=== PATIENT | female | born 1930 | race Caucasian/White ===

== ENCOUNTER → 2016-11-16 | Outpatient (CLI) | payer OTHER ==
[~2016-11-16] MED LIST: ACET-1311 PO; ACET325T96 PO; ASPI81TA28 PO; ATEN-173 PO; ATOR-22 PO; CALC500C70 PO; CHOL1000 PO; CLOP1TAB15 PO; CMD3 PO; DICL1GEL12 TOP; DOXY100C2 PO; FERR-24 PO; LEVO100T7 PO; LEVO1TAB35 PO; LISI-461 PO; LSN/2025 PO; LVNIS80 SQ; MULT-116 PO; MULT-506 PO; MULTTAB58 PO; OMEG10007 PO; RSTOPS OP; SULF800T23 PO; TRAM-10 PO; VANC5CAP PO; VITAMIN B12 INJECT IM; WARF2TAB8 PO
[2016-11-16 08:33] LABS: BLOOD UREA NITROGEN 14 mg/dl (7-18); BUN/CREATININE RATIO 14.9 (10-20); CALCIUM 8.3 mg/dl (8.5-10.1); CARBON DIOXIDE 20 mmol/L (21-32); CHLORIDE 91 mmol/L (98-107); CREATININE 0.94 mg/dl (0.60-1.20); GLUCOSE 85 mg/dl (70-99); POTASSIUM 3.3 mmol/L (3.5-5.1); SODIUM 123 mmol/L (136-145)
== END ==
LOC: C.LABCC 07:53 → EDSTATUS 11-18 12:20
PROVIDERS: ATTEND Internal Medicine
DX: I73.9 Peripheral vascular disease, unspecified (principal)

== ENCOUNTER → 2016-11-19 | Outpatient (CLI) | payer OTHER ==
[~2016-11-19] MED LIST changes: +CLR10 PO; +CYNI1000 IM; +LCTX PO; +METR-163 PO; +POVI10SO38 TOP
[2016-11-19 09:36] LABS: BLOOD UREA NITROGEN 27 mg/dl (7-18); BUN/CREATININE RATIO 19.3 (10-20); CALCIUM 8.6 mg/dl (8.5-10.1); CARBON DIOXIDE 23 mmol/L (21-32); CHLORIDE 96 mmol/L (98-107); GLUCOSE 101 mg/dl (70-99); POTASSIUM 3.8 mmol/L (3.5-5.1); SODIUM 129 mmol/L (136-145)
== END ==
LOC: C.LABCC 09:05
PROVIDERS: ATTEND Internal Medicine
DX: E87.1 Hypo-osmolality and hyponatremia (principal)

== ENCOUNTER 2016-12-03 20:04 | Inpatient (IN) | payer OTHER ==
[~2016-12-03] VITALS: Ht 160 cm; Wt 56.8 kg
[~2016-12-03 20:04] MED LIST changes: -ACET-1311 PO; -ASPI81TA28 PO; -ATOR-22 PO; -CLR10 PO; -CMD3 PO; -CYNI1000 IM; -DOXY100C2 PO; -LCTX PO; -LEVO1TAB35 PO; -LVNIS80 SQ; -METR-163 PO; -MULT-116 PO; -POVI10SO38 TOP; -SULF800T23 PO; -VITAMIN B12 INJECT IM; -WARF2TAB8 PO
[2016-12-03 22:32] LABS: BASO % 0.6 %; BASO ABS # 0.04 K/uL (0-0.2); COMPLETE YES; EOS % 2.5 %; IG% 0.3 %; LYMPH ABS # 1.28 K/uL (1.2-3.4); MEAN CELL VOLUME 89.6 fL (80-100); MEAN CORPUSCULAR HEMOGLOBIN 30.1 pg (25-34); MEAN CORPUSCULAR HGB CONC 33.5 g/dl (32-36); MEAN PLATELET VOLUME 9.4 fL (7.4-10.4); MONO % 11.1 %; NEUT % 67.5 %; PLATELET COUNT 268 K/uL (130-400); RED BLOOD COUNT 3.46 M/uL (4.2-5.4); WHITE BLOOD COUNT 7.11 K/uL (4.8-10.8)
[2016-12-03 22:45] LABS: INR 1.1 (0.9-1.1); PROTHROMBIN TIME (PATIENT) 11.3 SECONDS (9.0-12.0)
[2016-12-03 22:56] LABS: BUN/CREATININE RATIO 20.4 (10-20); CALCIUM 9.1 mg/dl (8.5-10.1); CREATININE 0.87 mg/dl (0.60-1.20); POTASSIUM 4.2 mmol/L (3.5-5.1)
[2016-12-03] MEDS ORDERED: VANC5CAP PO (23:14)
[2016-12-04] MEDS ORDERED: HEPARIN SOD 5000 UNIT/0.5 ML CARP ONE (01:48)
[2016-12-04] MEDS ORDERED: HEPARIN 25000 UNIT/500 ML D5W ONE (01:48)
[2016-12-04] MEDS ORDERED: MAGNESIUM HYDROXIDE SUSP 30 ML UDC PO PRN (02:15)
[2016-12-04] MEDS ORDERED: POLYETHYLENE (MIRALAX) 17 GM PACK PO PRN (02:15)
[2016-12-04] MEDS ORDERED: ACETAMINOPHEN 325 MG TAB PO PRN (02:15)
[2016-12-04] MEDS ORDERED: ONDANSETRON INJ 2 MG/ML 2 ML VIAL IV PRN (02:15)
[2016-12-04] MEDS ORDERED: ALUMINUM/MAGNESIUM/SIMETH (MAALOX MAX) 30 ML UDC PO PRN (02:15)
--- NOTE | 2016-12-04 02:40 | EMERGENCY ROOM VISIT NOTE ---
History Report prepared by Samuel: Oniel Pederson Under the Supervision of: Dr. Srinivasan Abbasi M.D. First contact with patient: 20:57 Chief Complaint: SWELLING TO EXTREMITY Stated Complaint: RT ARM DVT History of Present Illness The patient is a 86 year old female who presents to the Emergency Room with complaints of improving swelling in the left arm starting prior to arrival. The patient currently rates her discomfort as a 2/10 in severity. The patient's daughters state that the patient had an ultrasound at [facility], and it showed a DVT in her upper extremity. They state that she has swelling her her hand, however it has gone down so far. The daughters state that the patient is arthritic, and she is currently on Plavix. They additionally states hatshe got a pacemaker in last month. The patient states that she has been having diarrhea. Pt denies LOC, headache, fevers, chills, diaphoresis, visual changes, neck pain, chest pain, breathing difficulties, nausea, vomiting, abdominal pain , back pain, melena, hematochezia, urinary symptoms, numbness, weakness, lymphadenopathy, rash, or other complaints. Source of History: patient, family Onset: prior to arrival Position: arm (left) Symptom Intensity: excruciating (2/10) Quality: other (swelling) Timing: other (improving) Associated Symptoms: + diarrhea Review of Systems See HPI for pertinent positives and negatives. A total of ten systems were reviewed and were otherwise negative. Past Medical & Surgical Medical Problems: (1) CKD (chronic kidney disease), stage III (2) DVT (deep venous thrombosis) (3) HTN (hypertension) (4) Hyperlipidemia (5) Hypothyroidism (6) Osteoporosis (7) Parkinson's disease (8) Tachy-natali syndrome (9) TIA (transient ischemic attack) Surgical Problems: (1) H/O colonoscopy (2) S/P laparotomy (3) S/P tonsillectomy and adenoidectomy Family History Cancer Heart disease Social History Smoking Status: Never Smoker Alcohol Use: none Marital Status: Occupation Status: retired Current/Historical Medications Scheduled Atenolol (Tenormin), 75 MG PO BID Calcium/Vitamin D (Os-Niall 500 Plus D), 1 TAB PO BID Cholecalciferol (Vitamin D3), 1 TAB PO DAILY Clopidogrel (Plavix), 75 MG PO DAILY Cyclosporine (Restasis Eye Drops), 1 DROP OP BID Ferrous Sulfate (Fe Tabs), 325 MG PO DAILY Fish Oil ([place]-3), 1 CAP PO BID Hctz/Lisinopril (Zestoretic 20MG/25MG), 1 TAB PO DAILY Levothyroxine Sodium (Levothyroxine Sodium), 125 MCG PO DAILY Multiple Vitamin (Multivitamin), 1 TAB PO DAILY Vancomycin Hcl (Vancomycin), 125 MG PO QID Scheduled PRN Acetaminophen Tab (Tylenol), 650 MG PO Q6 PRN for Pain Diclofenac Sodium (Topical) (Voltaren 1% Top Gel), 2 GM TOP QID PRN for Pain Allergies Coded Allergies: Amoxicillin (Verified Allergy, Mild, RASH, 12/03/16) Physical Exam Vital Signs Date Time Temp Pulse Resp B/P Pulse Ox O2 Delivery O2 Flow Rate FiO2 12/04/16 00:16 87 12/04/16 00:00 76 18 151/76 96 Room Air 12/03/16 22:44 89 20 160/71 95 Room Air 12/03/16 21:30 84 20 161/66 95 12/03/16 21:04 Room Air 12/03/16 20:13 83 12/03/16 20:08 37.0 77 17 156/75 94 Room Air Physical Exam GENERAL: Awake, alert, well-appearing, in no distress HENT: Normocephalic, atraumatic. Oropharynx unremarkable. EYES: Normal conjunctiva. Sclera non-icteric. NECK: Supple. No nuchal rigidity. FROM. No JVD. RESPIRATORY: Clear to auscultation. CARDIAC: Regular rate, normal rhythm. Extremities warm and well perfused. Pulses equal. ABDOMEN: Soft, non-distended. No tenderness to palpation. No rebound or guarding. No masses. RECTAL: Deferred. MUSCULOSKELETAL: Chest examination reveals no tenderness. The back is symmetrical on inspection without obvious abnormality. There is no CVA tenderness to palpation. No joint edema. LOWER EXTREMITIES: Ulcerations noted on feet without signs of infection. Calves are equal size bilaterally and non-tender. No edema. No discoloration. NEURO: Normal sensorium. No sensory or motor deficits noted. SKIN: No rash or jaundice noted. Medical Decision & Procedures ER Provider Diagnostic Interpretation: US results as stated below per my review and radiologist interpretation: US VENOUS LEFT UPPER EXTREMITY: Near occlusive DVT Laboratory Results 12/03/16 22:17 Red Blood Count 3.46, Mean Corpuscular Volume 89.6, Mean Corpuscular Hemoglobin 30.1, Mean Corpuscular Hemoglobin Concent 33.5, Mean Platelet Volume 9.4, Neutrophils (%) (Auto) 67.5, Lymphocytes (%) (Auto) 18.0, Monocytes (%) (Auto) 11.1, Eosinophils (%) (Auto) 2.5, Basophils (%) (Auto) 0.6, Neutrophils # (Auto ) 4.80, Lymphocytes # (Auto) 1.28, Monocytes # (Auto) 0.79, Eosinophils # (Auto ) 0.18, Basophils # (Auto) 0.04 12/03/16 22:17 Test 12/03/16 22:17 White Blood Count 7.11 K/uL (4.8-10.8) Red Blood Count 3.46 M/uL (4.2-5.4) Hemoglobin 10.4 g/dL (12.0-16.0) Hematocrit 31.0 % (37-47) Mean Corpuscular Volume 89.6 fL (80-100) Mean Corpuscular Hemoglobin 30.1 pg (25-34) Mean Corpuscular Hemoglobin Concent 33.5 g/dl (32-36) Platelet Count 268 K/uL (130-400) Mean Platelet Volume 9.4 fL (7.4-10.4) Neutrophils (%) (Auto) 67.5 % Lymphocytes (%) (Auto) 18.0 % Monocytes (%) (Auto) 11.1 % Eosinophils (%) (Auto) 2.5 % Basophils (%) (Auto) 0.6 % Neutrophils # (Auto) 4.80 K/uL (1.4-6.5) Lymphocytes # (Auto) 1.28 K/uL (1.2-3.4) Monocytes # (Auto) 0.79 K/uL (0.11-0.59) Eosinophils # (Auto) 0.18 K/uL (0-0.5) Basophils # (Auto) 0.04 K/uL (0-0.2) RDW Standard Deviation 49.2 fL (36.4-46.3) RDW Coefficient of Variation 15.0 % (11.5-14.5) Immature Granulocyte % (Auto) 0.3 % Immature Granulocyte # (Auto) 0.02 K/uL (0.00-0.02) Prothrombin Time 11.3 SECONDS (9.0-12.0) Prothromb Time International Ratio 1.1 (0.9-1.1) Activated Partial Thromboplast Time 26.1 SECONDS (21.0-31.0) Partial Thromboplastin Ratio 1.0 Anion Gap 9.0 mmol/L (3-11) Est Creatinine Clear Calc Drug Dose 38.4 ml/min Estimated GFR () 69.9 Estimated GFR (Non- 60.3 BUN/Creatinine Ratio 20.4 (10-20) Calcium Level 9.1 mg/dl (8.5-10.1) Total Bilirubin 0.2 mg/dl (0.2-1) Aspartate Amino Transf (AST/SGOT) 35 U/L (15-37) Alanine Aminotransferase (ALT/SGPT) 56 U/L (12-78) Alkaline Phosphatase 91 U/L (45-117) Total Protein 6.7 gm/dl (6.4-8.2) Albumin 3.3 gm/dl (3.4-5.0) Globulin 3.4 gm/dl (2.5-4.0) Albumin/Globulin Ratio 1.0 (0.9-2) Laboratory results reviewed by me Medications Administered Medications (Trade) Dose Ordered Sig/Fritz Route Start Time Stop Time Status Last Admin Dose Admin Heparin Sodium/ Dextrose (Heparin 25,000 Unit/500ml D5W) 25,000 unit STK-MED ONCE .ROUTE 12/04/16 01:48 12/04/16 01:49 DC 12/04/16 01:58 25,000 UNIT Heparin Sodium (Porcine) (Heparin Sq 5000 Unit/0.5ml) 5,000 unit STK-MED ONCE .ROUTE 12/04/16 01:48 12/04/16 01:50 DC 12/04/16 01:58 3,000 UNIT ED Course 2130: The patient was evaluated in room A10. A complete history and physical exam was performed. 0119: Heparin Sodium/ Dextrose 1 ea 0120: I reevaluated the patient, and she was resting. 0130: I discussed the patient's case with Dr. Pavon. He is going to evaluate the patient for further treatment Medical Decision Triage Nursing notes reviewed. The patient's presentation and history were concerning for arm swelling. Etiologies such as DVT, joint effusion, infection, trauma, muscular, lymphedema , idiopathic, CHF, as well as others were entertained. Patient was evaluated. Physical examination as above. The patient had an unremarkable CBC except for mild anemia. Chemistry panel and LFTs were unremarkable as were coags. The patient underwent ultrasound imaging as her official report could not be obtained from the nursing facility. The patient has an extensive left upper extremity DVT which involves the pacer wires. I discussed this with the patient and family. IV heparin was ordered. Consultation was made with internal medicine. The patient was evaluated in the Emergency Room for further management. The chart was completed utilizing [employer] Speech voice recognition software. Grammatical errors, random word insertions, pronoun errors, and incomplete sentences are an occasional consequence of this system due to software limitations, ambient noise, and hardware issues. Any formal questions or concerns about the content, text, or information contained within the body of this dictation should be directly addressed to the physician for clarification. Consults Time Called: 0125 Consulting Physician: Dr. Pavon Returned Call: 0130 I discussed the patient's case with Dr. Pavon. He is going to evaluate the patient for further treatment Impression Primary Impression: Deep venous thrombosis of left upper extremity Scribe Attestation The scribe's documentation has been prepared under my direction and personally reviewed by me in its entirety. I confirm that the note above accurately reflects all work, treatment, procedures, and medical decision making performed by me. Departure Information Dispostion Being Evaluated By Hospitalist Referrals [place] (PCP) Problem Qualifiers Primary Impression: Deep venous thrombosis of left upper extremity
--- NOTE | 2016-12-04 02:49 | History and Physical ---
History & Physical Date & Time of Service: Dec 04, 2016 at 02:31 Chief Complaint: Rt Arm Dvt Primary Care Physician: Jorge Aggarwal History of Present Illness Source: family 86 y/o F Hx Parkinsons, AF and recent pacer placement. Presents with pain and swelling in her LUE. Denies CP, SOB, fevers. Ultrasound obtained in the ER reveals an extensive DVT extending into the L subclavian. She had a pacer placed due to AF with tachy/natali syndrome 10/30. 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 Past Medical/Surgical History Medical Problems: (1) CKD Status: Chronic (2) HTN (hypertension) Status: Chronic (3) Hyperlipidemia Status: Chronic (4) Hypothyroidism Status: Chronic (5) Osteoporosis Status: Chronic (6) Parkinson's disease Status: Chronic (7) TIA (transient ischemic attack) Status: Chronic Surgical Problems: (1) H/O colonoscopy Permanent Comment: 11/21- several hyperplastic polyps, 1 polyp with adenomatous changes Status: Chronic (2) S/P laparotomy Status: Chronic (3) S/P tonsillectomy and adenoidectomy Status: Chronic Family History Cancer Heart disease Social History Smoking Status: Never Smoker Marital Status: Housing status: lives alone Occupational Status: retired Immunizations History of Influenza Vaccine: Yes Influenza Vaccine Date: Aug 30, 2015 History of Tetanus Vaccine?: Yes Tetanus Immunization Date: Apr 17, 2014 History of Pneumococcal: Yes History of Hepatitis B Vaccine: Unknown Multi-Drug Resistant Organisms History of MDRO: Yes Type of MDRO: MRSA Allergies Coded Allergies: Amoxicillin (Verified Allergy, Mild, RASH, 12/03/16) Home Medications Scheduled Atenolol (Tenormin), 75 MG PO BID Calcium/Vitamin D (Os-Niall 500 Plus D), 1 TAB PO BID Cholecalciferol (Vitamin D3), 1 TAB PO DAILY Clopidogrel (Plavix), 75 MG PO DAILY Cyclosporine (Restasis Eye Drops), 1 DROP OP BID Ferrous Sulfate (Fe Tabs), 325 MG PO DAILY Fish Oil ([place]-3), 1 CAP PO BID Hctz/Lisinopril (Zestoretic 20MG/25MG), 1 TAB PO DAILY Levothyroxine Sodium (Levothyroxine Sodium), 125 MCG PO DAILY Multiple Vitamin (Multivitamin), 1 TAB PO DAILY Vancomycin Hcl (Vancomycin), 125 MG PO QID Scheduled PRN Acetaminophen Tab (Tylenol), 650 MG PO Q6 PRN for Pain Diclofenac Sodium (Topical) (Voltaren 1% Top Gel), 2 GM TOP QID PRN for Pain Review of Systems Constitutional: No chills, No fever, No sweats Eyes: No eye pain, No worsening of vision ENT: No hearing loss, No unusual epistaxis Respiratory: No cough, No sputum, No wheezing Cardiovascular: No PND, No chest pain, No orthopnea Abdomen: No nausea, No pain, No vomiting Musculoskeletal: + problem reported (Pain and swelling of LUE), No joint pain, No muscle pain Genitourinary - Female: No dysuria, No urinary frequency, No urinary urgency Neurologic: No memory loss, No paralysis Psychiatric: No depression symptoms Physical Exam Vital Signs Date Time Temp Pulse Resp B/P Pulse Ox O2 Delivery O2 Flow Rate FiO2 12/04/16 00:16 87 12/04/16 00:00 76 18 151/76 96 Room Air 12/03/16 22:44 89 20 160/71 95 Room Air 12/03/16 21:30 84 20 161/66 95 12/03/16 21:04 Room Air 12/03/16 20:13 83 12/03/16 20:08 37.0 77 17 156/75 94 Room Air General Appearance: + pertinent finding (Somnolent elderly female - responds to questioning appropritely when awake - no distress) Head: normocephalic, atraumatic Eyes: normal inspection, EOMI ENT: normal ENT inspection, pharynx normal Neck: supple, no adenopathy, thyroid normal, no JVD Respiratory/Chest: chest non-tender, lungs clear, normal breath sounds, no respiratory distress, no accessory muscle use Cardiovascular: regular rate, rhythm, no edema, no gallop Abdomen/GI: normal bowel sounds, non tender, soft Back: normal inspection, no CVA tenderness Extremities/Musculoskelatal: normal inspection, no calf tenderness, normal capillary refill, + pertinent finding (Mild swelling LUE - no overlying cellulitis) 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, no motor/sensory deficits, alert, normal mood/affect, normal reflexes Skin: normal color, warm/dry, + pertinent finding (Shallow ulcer RLE) Diagnostics Laboratory Results Results Past 24 Hours Test 12/03/16 22:17 Range/Units White Blood Count 7.11 4.8-10.8 K/uL Red Blood Count 3.46 4.2-5.4 M/uL Hemoglobin 10.4 12.0-16.0 g/dL Hematocrit 31.0 37-47 % Mean Corpuscular Volume 89.6 80-100 fL Mean Corpuscular Hemoglobin 30.1 25-34 pg Mean Corpuscular Hemoglobin Concent 33.5 32-36 g/dl Platelet Count 268 130-400 K/uL Mean Platelet Volume 9.4 7.4-10.4 fL Neutrophils (%) (Auto) 67.5 % Lymphocytes (%) (Auto) 18.0 % Monocytes (%) (Auto) 11.1 % Eosinophils (%) (Auto) 2.5 % Basophils (%) (Auto) 0.6 % Neutrophils # (Auto) 4.80 1.4-6.5 K/uL Lymphocytes # (Auto) 1.28 1.2-3.4 K/uL Monocytes # (Auto) 0.79 0.11-0.59 K/uL Eosinophils # (Auto) 0.18 0-0.5 K/uL Basophils # (Auto) 0.04 0-0.2 K/uL RDW Standard Deviation 49.2 36.4-46.3 fL RDW Coefficient of Variation 15.0 11.5-14.5 % Immature Granulocyte % (Auto) 0.3 % Immature Granulocyte # (Auto) 0.02 0.00-0.02 K/uL Prothrombin Time 11.3 9.0-12.0 SECONDS Prothromb Time International Ratio 1.1 0.9-1.1 Activated Partial Thromboplast Time 26.1 21.0-31.0 SECONDS Partial Thromboplastin Ratio 1.0 Sodium Level 141 136-145 mmol/L Potassium Level 4.2 3.5-5.1 mmol/L Chloride Level 104 98-107 mmol/L Carbon Dioxide Level 28 21-32 mmol/L Anion Gap 9.0 3-11 mmol/L Blood Urea Nitrogen 18 7-18 mg/dl Creatinine 0.87 0.60-1.20 mg/dl Est Creatinine Clear Calc Drug Dose 38.4 ml/min Estimated GFR () 69.9 Estimated GFR (Non- 60.3 BUN/Creatinine Ratio 20.4 10-20 Random Glucose 141 70-99 mg/dl Calcium Level 9.1 8.5-10.1 mg/dl Total Bilirubin 0.2 0.2-1 mg/dl Aspartate Amino Transf (AST/SGOT) 35 15-37 U/L Alanine Aminotransferase (ALT/SGPT) 56 12-78 U/L Alkaline Phosphatase 91 45-117 U/L Total Protein 6.7 6.4-8.2 gm/dl Albumin 3.3 3.4-5.0 gm/dl Globulin 3.4 2.5-4.0 gm/dl Albumin/Globulin Ratio 1.0 0.9-2 Diagnostic Radiology US L upper ext - occlusive DVT subclavian, axillary Impression Assessment and Plan 86 y/o F Hx Parkinsons, AF and recent pacer placement. Presents with pain and swelling in her LUE. Denies CP, SOB, fevers. Ultrasound obtained in the ER reveals an extensive DVT extending into the L subclavian. 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 1) DVT - started on heparin protocol - will consult cardiology to advise on management in context of pacer placement 2) AF - Cont Atenolol 3) Hx TIA - cont plavix 4) Parkinson - does not appear to be treated at present 5) Recurrent C diff - no related symptoms - cont Vanc - contact isolation DNR/DNI - Full dose Heparin Total time for this admit including review of records, labs, imaging - med rec - discussion with ER MD and pt's family - 36 min Level of Care Telemetry Resuscitation Status DO NOT RESUSCITATE VTE Prophylaxis VTE Risk Assessment Done? Y/N: Yes Risk Level: High Given or contraindicated: Other Anticoagulation
[2016-12-04] MEDS: HEPARIN 25,000 UNIT/500ML D5W 500 ML IV PRN ×2 (04:00→11:31)
[2016-12-04 04:16] VITALS: BP 139/79; PULSE 79; TEMP 36.3; O2SAT 98; Ht 160 cm; Wt 56.8 kg
[2016-12-04] MEDS: LEVOTHYROXINE 125 MCG TAB PO SCH (06:18)
--- NOTE | 2016-12-04 07:10 | DIAGNOSTIC IMAGING REPORT ---
LEFT UPPER EXTREMITY VENOUS DOPPLER HISTORY: Left hand swelling. Left upper extremity DVT suspected on palpation study. COMPARISON STUDY: None. FINDINGS: There is near occlusive DVT surrounding the port within the left subclavian vein. There is also near occlusive thrombus within the mid subclavian vein, axillary vein, and proximal basilic vein. The left radioulnar veins appear patent. The left internal jugular vein is patent. IMPRESSION: Extensive near occlusive DVT within the left upper extremity as described above. Electronically signed by: Alli Zamudio M.D. 12/04/2016 7:08 AM Dictated Date/Time: 12/04/2016 7:07 AM
[2016-12-04 07:36] VITALS: BP 175/70; PULSE 81; TEMP 36.9; O2SAT 95
[2016-12-04] MEDS: RESTASIS~ORDER AWAITING ACTION SCH (08:00)
[2016-12-04] MEDS: VANCOMYCIN HCL 125 MG/2.5ML SOLN PO SCH ×4 (08:08→20:42)
[2016-12-04] MEDS: OMEGA-3 (PURIFIED FISH OIL) 1 GM CAP PO SCH ×2 (08:09→20:42)
[2016-12-04] MEDS: RASPBERRY SYRUP 5 ML UDP PO SCH ×4 (08:09→20:42)
[2016-12-04] MEDS: LISINOPRIL/HCTZ 20/25MG TAB PO SCH (08:09)
[2016-12-04] MEDS: FERROUS SULFATE 325 MG TAB PO SCH (08:10)
[2016-12-04] MEDS: CLOPIDOGREL BISULFATE 75 MG TAB PO SCH (08:10)
[2016-12-04 10:47] LABS: PARTIAL THROMBOPLASTIN RATIO 3.3
--- NOTE | 2016-12-04 10:59 | Hospitalist Progress Note ---
Hospitalist Progress Note Date of Service Dec 04, 2016. Subjective Pt evaluation today including: conversation w/ patient, physical exam, chart review, lab review, review of studies, review of inpatient medication list Pain: None PO Intake: Tolerating PO diet Voiding: no voiding problems Patient reports feeling well with no complaints. She denies any pain, numbness or tingling in her left arm. She denies any diarrhea. The patient denies fevers, chills, sweats, chest pain, palpitations, claudication, cough, wheezing , shortness of breath, nausea, vomiting, abdominal pain, dysuria, hematuria, urinary retention, paralysis, weakness, numbness and tingling. Additional Comments: See HPI for pertinent positives and negatives. All other systems reviewed and negative. Objective Vital Signs Date Time Temp Pulse Resp B/P Pulse Ox O2 Delivery O2 Flow Rate FiO2 12/04/16 08:00 Room Air 12/04/16 07:36 36.9 81 16 175/70 95 Room Air 12/04/16 04:16 36.3 79 20 139/79 98 Room Air 12/04/16 03:00 83 16 148/79 98 12/04/16 00:16 87 12/04/16 00:00 76 18 151/76 96 Room Air 12/03/16 22:44 89 20 160/71 95 Room Air 12/03/16 21:30 84 20 161/66 95 12/03/16 21:04 Room Air 12/03/16 20:13 83 12/03/16 20:08 37.0 77 17 156/75 94 Room Air Physical Exam General Appearance: WD/WN, no apparent distress Eyes: normal inspection, PERRL (pupils slightly irregular in shape bilaterally but equal in size, reactive to light), EOMI ENT: normal ENT inspection, hearing grossly normal, pharynx normal Neck: supple, no JVD, trachea midline Respiratory/Chest: lungs clear, normal breath sounds, no respiratory distress Cardiovascular: regular rate, rhythm, no gallop, no murmur Abdomen: normal bowel sounds, non tender, soft Extremities: normal inspection, no calf tenderness, + pedal edema (2+ pitting pedal edam of RLE), + swelling (mild swelling in LUE) Neurologic/Psychiatric: alert, normal mood/affect, oriented x 3 Skin: normal color, warm/dry, no rash, + pertinent finding (wound on left heel and lateral right foot) Laboratory Results Last 24 Hours Test 12/03/16 22:17 12/04/16 10:00 White Blood Count 7.11 K/uL Red Blood Count 3.46 M/uL Hemoglobin 10.4 g/dL Hematocrit 31.0 % Mean Corpuscular Volume 89.6 fL Mean Corpuscular Hemoglobin 30.1 pg Mean Corpuscular Hemoglobin Concent 33.5 g/dl Platelet Count 268 K/uL Mean Platelet Volume 9.4 fL Neutrophils (%) (Auto) 67.5 % Lymphocytes (%) (Auto) 18.0 % Monocytes (%) (Auto) 11.1 % Eosinophils (%) (Auto) 2.5 % Basophils (%) (Auto) 0.6 % Neutrophils # (Auto) 4.80 K/uL Lymphocytes # (Auto) 1.28 K/uL Monocytes # (Auto) 0.79 K/uL Eosinophils # (Auto) 0.18 K/uL Basophils # (Auto) 0.04 K/uL RDW Standard Deviation 49.2 fL RDW Coefficient of Variation 15.0 % Immature Granulocyte % (Auto) 0.3 % Immature Granulocyte # (Auto) 0.02 K/uL Prothrombin Time 11.3 SECONDS Prothromb Time International Ratio 1.1 Activated Partial Thromboplast Time 26.1 SECONDS Partial Thromboplastin Ratio 1.0 Sodium Level 141 mmol/L Potassium Level 4.2 mmol/L Chloride Level 104 mmol/L Carbon Dioxide Level 28 mmol/L Anion Gap 9.0 mmol/L Blood Urea Nitrogen 18 mg/dl Creatinine 0.87 mg/dl Est Creatinine Clear Calc Drug Dose 38.4 ml/min Estimated GFR () 69.9 Estimated GFR (Non- 60.3 BUN/Creatinine Ratio 20.4 Random Glucose 141 mg/dl Calcium Level 9.1 mg/dl Total Bilirubin 0.2 mg/dl Aspartate Amino Transf (AST/SGOT) 35 U/L Alanine Aminotransferase (ALT/SGPT) 56 U/L Alkaline Phosphatase 91 U/L Total Protein 6.7 gm/dl Albumin 3.3 gm/dl Globulin 3.4 gm/dl Albumin/Globulin Ratio 1.0 Diagnostic Results Reviewed the following studies and agree with interpretation as follows: Patient Name: GREGORIO POPE Unit Number: [id number] Dictated: 12/04/16706 Transcribed: 12/04/16706 [facility] Printed Date/Time: [~ rep prt dt]/[~ rep prt tm] [~ rep ct labl] - [~ rep ct ivnm] [facility] [place] [address] Dictated: 12/04/16706 Transcribed: 12/04/16706 [place] Printed Date/Time: [~ rep prt dt]/[~ rep prt tm] [~ rep ct labl] - [~ rep ct ivnm] Patient: GREGORIO POPE Address1: [address] Rec: [id number] Address2: [facility] Acct ID: [id number] [facility] Zip: [place] [address] Date: 1930 Sex: F Room/Bed: S237-1 Ref Phy: [place] SC: C.2T Att Phy: Ad Pavon MD Report #: [id number] Rahel Phy: [place] Test: [id number] Admit Phy: Ad Pavno MD Companion Caregiver: DIPLJE Interpreting Phy: Alli Zamudio MD Diagnosis: DVT Ordering Phy: Srinivasan Abbasi MD Service Date: 12/03/16 Admit Date: 12/03/1700/20/17 MNE: [id number] CONF: DICTATED BY: Alli Zamudio M.D.]] CC: [facility] Ad Pavon MD Maciejczyk, John F., MD Endcc: [~ rep ct add3]] LEFT UPPER EXTREMITY VENOUS DOPPLER HISTORY: Left hand swelling. Left upper extremity DVT suspected on palpation study. COMPARISON STUDY: None. FINDINGS: There is near occlusive DVT surrounding the port within the left subclavian vein. There is also near occlusive thrombus within the mid subclavian vein, axillary vein, and proximal basilic vein. The left radioulnar veins appear patent. The left internal jugular vein is patent. IMPRESSION: Extensive near occlusive DVT within the left upper extremity as described above. Electronically signed by: Alli Zamudio M.D. 12/04/2016 7:08 AM Dictated Date/Time: 12/04/2016 7:07 AM The status of this report is Signed. Draft = Not yet reviewed or approved by Radiologist. Signed = Reviewed and approved by Radiologist. <AttendingPhy>Ad Pavon MD</AttendingPhy> <FamilyPhy>[facility]</ FamilyPhy> <PrimaryPhy>[facility]</PrimaryPhy> <UnitNumber>[id number]</ UnitNumber> <VisitNumber>[id number]</VisitNumber> <PatientName>GREGORIO POPE</PatientName> <DateOfBirth>1930</DateOfBirth> <Location>C.2T</ Location> <ServiceDate>12/03/16</ServiceDate> <MNE>ESINDI</MNE> <OrderingPhy> Srinivasan Abbasi MD</OrderingPhy> <OrderingPhyMNE>f rep ord dr hazel</ OrderingPhyMNE> <DictatingPhyMNE>f rep dict dr hazel</DictatingPhyMNE> <CCListMNE> f rep ct mne</CCListMNE> <AdmittingPhyMNE>f pt admit dr hazel</AdmittingPhyMNE> < AttendingPhyMNE>f pt attend dr hazel</AttendingPhyMNE> <ConsultingPhyMNE>f pt consult dr hazel</ConsultingPhyMNE> <FamilyPhyMNE>f pt fam dr ahzel</FamilyPhyMNE> <OtherPhyMNE>f pt other dr hazel</OtherPhyMNE> < PrimaryPhyMNE>f pt prim care dr hazel</PrimaryPhyMNE> <ReferringPhyMNE>f pt referring dr hazel</ReferringPhyMNE> Assessment and Plan 86 y/o female with a history of a-fib with recent pacemaker placement (10/30), HTN, hypothyroidism, and Parkinson's. Presents with pain and swelling in her LUE. Denies CP, SOB, fevers. Ultrasound obtained in the ER reveals an extensive DVT extending into the L subclavian. 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 LUE DVT -Admit to telemetry -Continue heparin -Cardiology consulted regarding management in context of recent pacemaker placement, appreciate recs Recurrent C diff--no related symptoms, denies diarrhea -Continue vancomycin 125 mg PO QID -Contact isolation A-fib -Continue Atenolol 75 mg PO BID H/o TIA -Continue Plavix 75 mg PO qd HTN--stable -Continue lisinopril/HCTZ 20/25 mg PO qd Hypothyroidism -Continue Synthroid 125 mcg PO qd Parkinson's--does not appear to be treated at present DVT prophylaxis -Heparin drip [facility] [place] Code Status -Level V, DO NOT RESUSCITATE
[2016-12-04 11:27] VITALS: BP 172/68; PULSE 89; TEMP 36.5; O2SAT 97
--- NOTE | 2016-12-04 15:54 | CARDIOLOGY CONSULTATION REPORT ---
DATE OF CONSULTATION: 12/04/2016 REASON FOR CONSULTATION: 1. Left upper extremity DVT. 2. Status post dual-chamber pacemaker placement in October 2016. 3. History of sick sinus syndrome. 4. History of paroxysmal atrial fibrillation. HISTORY OF PRESENT ILLNESS: Mrs. Victor is an 86-year-old white female with a history of osteoporosis, hypothyroidism, osteoarthritis, stage III chronic kidney disease, anemia, Parkinson's disease, hypertension, venous stasis ulceration of lower extremity, a recent diagnosis of sick sinus syndrome status post dual-chamber pacemaker placement in 10/22/2016, and history of paroxysmal atrial fibrillation who was admitted acutely to [facility] earlier today after having an abnormal left upper extremity venous duplex Doppler showing a near occlusive DVT surrounding the port within the left subclavian vein, there is also a near occlusive thrombus in the mid subclavian vein, axillary vein and proximal basilic vein. The left radial-ulnar veins appear patent. The left internal jugular vein is patent. The patient was admitted for IV heparin drip and to begin more shelter anticoagulation. The patient offers no complaints. She is lying in bed comfortably. Denies any significant discomfort of her left arm. She has not had any chest pain, cough, hemoptysis, pleuritic chest pain, or any syncope or near syncope. She denies any shortness of breath, orthopnea, or PND. She further denies any palpitations or tachypalpitations. MEDICATIONS: 1. Atenolol 75 mg b.i.d. 2. Plavix 75 mg daily. 3. Feosol 325 mg daily. 4. Fish oil capsules 1 g b.i.d. 5. Prinzide 20/25 one tablet daily. 6. Vancomycin oral solution 125 mg q.i.d. 7. Raspberry syrup 5 mg q.i.d. 8. Levothyroxine. 9. Heparin drip. 10. Tylenol p.r.n. 11. Maalox Max p.r.n. 12. Milk of magnesia p.r.n. 13. Zofran 4 mg IV q. 6 hours p.r.n. 14. MiraLax powder p.r.n. ALLERGIES: AMOXICILLIN. PAST MEDICAL HISTORY: 1. Parkinsons disease. 2. Osteoporosis. 3. Hypothyroidism. 4. Osteoarthritis. 5. Stage III chronic kidney disease with secondary anemia. 6. Chronic venous stasis dermatitis. 7. Venous stasis ulceration. 8. Sick sinus syndrome status post dual-chamber pacemaker 10/22/2016. 9. Currently with left upper extremity DVT. 10. History of AFib. SOCIAL HISTORY: The patient is a resident of [facility]. FAMILY HISTORY: Noncontributory. PHYSICAL EXAMINATION: VITAL SIGNS: Temperature is 36.5 degrees Celsius, pulse is 84 and regular, respiratory rate is 16 and unlabored, blood pressure is 172/68. SpO2 is 97% on room air. GENERAL: The patient is in no acute distress. HEENT: Head is atraumatic, normocephalic. EOMs intact. Sclerae are anicteric. Faces symmetric. No perioral cyanosis. Mucous membranes moist. NECK: Without thyromegaly, adenopathy or JVD. No jugular venous distention noted. CHEST AND LUNGS: Clear to auscultation throughout all lung pisano. No wheezes, rales or rhonchi. CARDIOVASCULAR: S1 and S2 are regular, with an obvious murmur, gallop or rub. PMI is not displaced. No lifts, heaves, or thrills. No abdominal aortic or renal bruits. Examination of the left subclavian fossa reveals a palpable pacemaker generator. There is no erythema, ecchymosis, or tenderness. ABDOMEN: Bowel sounds present. No masses, organomegaly or tenderness. EXTREMITIES: Without clubbing or cyanosis. There is trace edema of the left hand and forearm. Otherwise unremarkable. NEUROLOGIC: The patient is awake, alert and interactive. Answers questions appropriately. Speech is clear. Follows commands. Current tin plater reveals normal sinus rhythm with occasional PVCs. She has not had any documented atrial fibrillations since being admitted. Left upper extremity venous duplex Doppler as described above. LABORATORY DATA: White blood cell count 7.11. Hemoglobin is 10.4 g/dL, hematocrit 31.0%, platelet count is 268,000. A PTT is 85.7 seconds. Sodium is 141 mmol/L, potassium 3.2 mmol/L, BUN 18 mg/dL, creatinine 0.87 mg/dL. Estimated GFR is 60.3 mL per minute per 1.73 meters squared. ASSESSMENT: 1. Sick Sinus Syndrome s/p dual-chamber pacemaker placement via left subclavian approach on 10/22/2016. 2. Left upper extremity DVT. 3. No evidence of pulmonary embolism. 4. History of Paroxysmal Atrial Fibrillation. 5. Diagnosis as mentioned above. PLAN: 1. At this point the patient is on a heparin drip. 2. I had a discussion with the patient and her daughter regarding longer term anticoagulation in the future. Would recommend either Eliquis or Xarelto (depending on what her insurance will cover) and would recommend appropriate dosing based on renal function and GFR. Suspect she will need to be treated for 3-6 months for her current DVT. If she tolerates this medication well though (without complications) would strongly consider keno terminal operator anticoagulation to reduce the risk associated with paroxysmal atrial fibrillation. We can make that decision pending her clinical course. If she is started on one of the novel anticoagulants, she will be fully anticoagulated within 2 hours, and therefore heparin drip can be stopped and she can be discharged to [facility]. The patient and her daughter verbalized understanding of the discussion. I have contacted the patient's attending physician, Dr. Rosario, who is aware of our recommendations. Thank you for asking us to see this patient in consultation. VALDEZ
[2016-12-04 15:55] VITALS: BP 173/75; PULSE 85; TEMP 36.5; O2SAT 96
[2016-12-04] MEDS ORDERED: WARFARIN SOD 3 MG TAB PO ONE (16:00)
[2016-12-04] MEDS: ENOXAPARIN 80 MG/0.8 ML SYR SQ SCH (18:41)
[2016-12-04 19:31] VITALS: BP 133/60; PULSE 81; TEMP 36.4; O2SAT 97
[2016-12-04] MEDS ORDERED: RIVAROXABAN 20 MG TAB PO SCH (21:00)
[2016-12-05] VITALS (7 sets, daily range): BP systolic 146–166; BP diastolic 69–87; PULSE 77–88; TEMP 36.5–36.9; O2SAT 94–98
[2016-12-05] MEDS: LEVOTHYROXINE 125 MCG TAB PO SCH (06:34)
[2016-12-05 07:19] LABS: HEMATOCRIT 31.3 % (37-47); MEAN CELL VOLUME 89.7 fL (80-100); MEAN CORPUSCULAR HEMOGLOBIN 29.8 pg (25-34); MEAN CORPUSCULAR HGB CONC 33.2 g/dl (32-36); MEAN PLATELET VOLUME 9.3 fL (7.4-10.4); PLATELET COUNT 279 K/uL (130-400); RED BLOOD COUNT 3.49 M/uL (4.2-5.4)
[2016-12-05 07:22] LABS: INR 1.1 (0.9-1.1); PARTIAL THROMBOPLASTIN RATIO 1.1; PROTHROMBIN TIME (PATIENT) 11.4 SECONDS (9.0-12.0)
[2016-12-05] MEDS: RESTASIS~ORDER AWAITING ACTION SCH ×3 (07:33→16:00)
[2016-12-05 07:49] LABS: CREATININE 0.81 mg/dl (0.60-1.20); POTASSIUM 3.7 mmol/L (3.5-5.1)
[2016-12-05] MEDS: VANCOMYCIN HCL 125 MG/2.5ML SOLN PO SCH ×3 (07:55→17:36)
[2016-12-05] MEDS: RASPBERRY SYRUP 5 ML UDP PO SCH ×3 (07:55→17:36)
[2016-12-05] MEDS: LISINOPRIL/HCTZ 20/25MG TAB PO SCH (07:55)
[2016-12-05] MEDS: OMEGA-3 (PURIFIED FISH OIL) 1 GM CAP PO SCH (07:56)
[2016-12-05] MEDS: FERROUS SULFATE 325 MG TAB PO SCH (07:57)
[2016-12-05] MEDS: CLOPIDOGREL BISULFATE 75 MG TAB PO SCH (07:57)
[2016-12-05] MEDS ORDERED: LVNIS80 SQ (13:38)
[2016-12-05] MEDS ORDERED: CMD3 PO (13:38)
--- NOTE | 2016-12-05 13:38 | Discharge Instructions ---
Discharge Instructions Admission Reason for Admission: DVT Discharge Discharge Diagnosis / Problem: DVT Discharge Goals Goal(s): Decrease discomfort, Improve function, Increase independence, Improve disease control, Improve nutritional status, Learn about illness, Diagnostic testing, Therapeutic intervention, Prevent Disease Progression, Specific goals Activity Recommendations Activity Level: Up Ad Sonia Therapies: Physical Therapy, Occupational Therapy Lifting Limitations: none Exercise/Sports Limitations: none Fall precaution, resume activity as prior to the admission . Additional Information Patient informed of condition: Yes Advance Directives: Yes DNR: Yes Level of Care: Skilled Communicable Disease: Yes Prognosis: Other (guarded) Instructions / Follow-Up Instructions / Follow-Up you have DVT, your daughter preferred to Coumadin For now the blood thinner is Coumadin with Lovenox, Lovenox need to be at least 4 days more from today on, need to continue Lovenox until PT INR more than 2 Coumadin stones is 3 mg by mouth daily, this does need to be adjusted by PCP I recommend PT/INR checking on Wednesday which will be tomorrow, RN to report to your family doctor about the PT/INR results and adjust Coumadin dose - you need to follow up with your primary care physician in 1 week, - take medication as instructed, never overdose or any misuse, or take with alcohol, because misuse of medicine may cause organ damage or , call your primary care physician if have questions of medicaitons. - call your primary care physician OR go to local emergency room if has any fever/chill, chest pain, shortness of breathing, nausea/vomiting/abdominal pain , facial droop/slurry speech/local weakness, or if has any questions. - fall precaution - diet as instructed - you need to follow up with your subspecialist - you should understand that it is important to follow up the above instruction , and "not following the above instruction" may cause delayed or missed care of your medical conditions which may cause permanent organ damage and even . Current Hospital Diet Patient's current hospital diet: AHA Diet (Heart Healthy) Discharge Diet Recommended Diet: AHA Diet (Heart Healthy) Procedures Procedures Performed: No Pending Studies Studies pending at discharge: no Medical Emergencies . Who to Call and When: Medical Emergencies: If at any time you feel your situation is an emergency, please call 911 immediately. . Non-Emergent Contact Non-Emergency issues call your: Primary Care Provider . . "Provider Documentation" section prepared by Michael Rosario. Core Measure Problem Core Measures: VTE VTE Core Measures Date of VTE Diagnosis: Dec 03, 2016 Time of VTE Diagnosis: 07:07 Reason no anticoag overlap I/P: Treatment provided - N/A Reason no anticoag overlap @DC: Treatment provided - N/A
--- NOTE | 2016-12-05 13:49 | Discharge Summary ---
Discharge Summary Admission Date: Dec 04, 2016 at 02:13 Discharge Date: Dec 05, 2016 Principal Diagnosis: dvt Problems/Secondary Diagnoses: Resend a pacer placement Immunizations: Have You Had Influenza Vaccine: Yes Influenza Vaccine Date: Aug 30, 2015 History of Tetanus Vaccine?: Yes Tetanus Immunization Date: Apr 17, 2014 History of Pneumococcal: Yes History of Hepatitis B Vaccine: Unknown Procedures: No Consultations: No Medication Reconciliation New Medications: Enoxaparin (Lovenox) 80 Mg/0.8 Ml Inj 80 MG SQ DAILY@1700 for 4 Days need to complete total 5 days even if INR>2, need to continue until INR>2 Warfarin Sod (Coumadin) 3 Mg Tab 3 MG PO DAILY@1600 for 30 Days, TAB dose need to be adjusted, target INR 2-3 Continued Medications: Acetaminophen Tab (Tylenol) 325 Mg Tab 650 MG PO Q6 PRN for Pain, TAB Atenolol (Tenormin) 25 Mg Tab 75 MG PO BID, TAB Calcium/Vitamin D (Os-Niall 500 Plus D) Tab 1 TAB PO BID, TAB Cholecalciferol (Vitamin D3) 1,000 Unit Tab 1 TAB PO DAILY for 90 Days, #90 TAB 3 Refills Clopidogrel (Plavix) 75 Mg Tab 75 MG PO DAILY, TAB Cyclosporine (Restasis Eye Drops) Soln 1 DROP OP BID, BTL Diclofenac Sodium (Topical) (Voltaren 1% Top Gel) 1 % Gel 2 GM TOP QID PRN for Pain Ferrous Sulfate (Fe Tabs) 325 Mg Tab 325 MG PO DAILY, TAB Fish Oil (Kirkland-3) 1 Ea Cap 1 CAP PO BID, CAP Hctz/Lisinopril (Zestoretic 20MG/25MG) 1 Ea Tab 1 TAB PO DAILY, TAB Levothyroxine Sodium (Levothyroxine Sodium) 100 Mcg Tab 125 MCG PO DAILY for 90 Days, #108 TAB 3 Refills Multiple Vitamin (Multivitamin) 1 Tab Tab 1 TAB PO DAILY, TAB Vancomycin Hcl (Vancomycin) 125 Mg Cap 125 MG PO QID Discharge Exam Doing well, eating meal, no complaint Review of Systems: Constitutional: No chills, No fatigue, No fever, No problem reported, No sweats, No weakness, No weight loss Eyes: No diplopia, No discharge, No eye pain, No problem reported, No redness, No worsening of vision ENT: No dental problems, No hearing loss, No nasal symptoms, No problem reported, No sore throat, No tinnitus, No trouble swallowing, No unusual epistaxis Respiratory: No cough, No dyspnea at rest, No dyspnea on exertion, No hemoptysis, No problem reported, No shortness of breath, No sputum, No wheezing Cardiovascular: No PND, No chest pain, No claudication, No edema, No orthopnea, No palpitations, No problem reported Abdomen: No GI bleeding, No constipation, No diarrhea, No nausea, No pain, No problem reported, No vomiting Musculoskeletal: No calf pain, No joint pain, No muscle pain, No problem reported, No swelling Genitourinary - Female: No dysmenorrhea, No dysuria, No hematuria, No menorrhagia, No metrorrhagia, No , No problem reported, No rash, No urinary frequency, No urinary incontinence, No urinary retention, No urinary urgency, No vaginal bleeding, No vaginal discharge, No vaginal itching, No vulvodynia Neurologic: No balance problems, No memory loss, No numbness/tingling, No paralysis, No problem reported, No vertigo, No weakness Psychiatric: No anhedonism, No anxiety, No depression symptoms, No insomnia , No problem reported, No substance abuse Endocrine: No excessive thirst, No excessive urination, No fatigue, No problem reported Hematologic / Lymphatic: No abnormal bleeding/bruising, No clotting problems , No night sweats, No problem reported, No swollen lymph nodes Integumentary: No bleeding, No color change, No itch, No new/changing skin lesions, No problem reported, No rash Physical Exam: General Appearance: WD/WN, + thin, + pertinent finding (frail,) Eyes: normal inspection, PERRL ENT: normal ENT inspection, TMs normal Neck: no adenopathy, thyroid normal Respiratory/Chest: chest non-tender, lungs clear Cardiovascular: regular rate, rhythm, no edema Abdomen / GI: normal bowel sounds, soft Extremities: normal inspection, no calf tenderness, normal capillary refill Neurologic/Psychiatric: platform man II-XII nml as tested, no motor/sensory deficits , alert, normal mood/affect Skin: + pertinent finding (right lower extremity skin some abrasion, local in dressing) Hospital Course 86 y/o female with a history of a-fib with recent pacemaker placement (10/30), HTN, hypothyroidism, and Parkinson's. Patient was admitted on 12/03/2016 with pain and swelling in her LUE. Denies CP, SOB, fevers. Ultrasound obtained in the ER reveals an extensive DVT extending into the L subclavian. 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 LUE DVT Was admitted to to telemetry Was on Continue heparin, 12/04/2016 I called to power of commercial attorney patient's daughter Chandrika, discussed about risk and benefit of anticoagulation, and different options of anticoagulation such as Xalreto or Coumadin, Patient's daughter preferred to Coumadin because patient is going back to [facility] , and will have chance to continue checking blood and monitor Coumadin level, I agree with that . 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, denies diarrhea -Continue vancomycin 125 mg PO QID -Contact isolation A-fib -Continue Atenolol 75 mg PO BID H/o TIA -Continue Plavix 75 mg PO qd HTN--stable -Continue lisinopril/HCTZ 20/25 mg PO qd Hypothyroidism -Continue Synthroid 125 mcg PO qd Parkinson's--does not appear to be treated at present DVT prophylaxis -Heparin drip -NICHOLAS john and SCDs Code Status -Level V, DO NOT RESUSCITATE Discharge instruction you have DVT, your daughter preferred to Coumadin For now the blood thinner is Coumadin with Lovenox, Lovenox need to be at least 4 days more from today on, need to continue Lovenox until PT INR more than 2 Coumadin stones is 3 mg by mouth daily, this does need to be adjusted by PCP I recommend PT/INR checking on Wednesday which will be tomorrow, RN to report to your family doctor about the PT/INR results and adjust Coumadin dose - you need to follow up with your primary care physician in 1 week, - take medication as instructed, never overdose or any misuse, or take with alcohol, because misuse of medicine may cause organ damage or , call your primary care physician if have questions of medicaitons. - call your primary care physician OR go to local emergency room if has any fever/chill, chest pain, shortness of breathing, nausea/vomiting/abdominal pain , facial droop/slurry speech/local weakness, or if has any questions. - fall precaution - diet as instructed - you need to follow up with your subspecialist - you should understand that it is important to follow up the above instruction , and "not following the above instruction" may cause delayed or missed care of your medical conditions which may cause permanent organ damage and even . This includes examination of the patient, discharge planning, medication reconciliation, and communication with other providers. Discharge Instructions Please refer to the electronic Patient Visit Report (Discharge Instructions) for additional information. Additional Copies To [place], [place]
[2016-12-05] MEDS ORDERED: WARFARIN SOD 3 MG TAB PO SCH (16:00)
[2016-12-05] MEDS: ENOXAPARIN 80 MG/0.8 ML SYR SQ SCH (17:37)
[2017-01-18] MEDS ORDERED: DOXY100C2 PO (08:00)
[2017-02-12] MEDS ORDERED: WARF2TAB8 PO (07:49)
== END 2016-12-05 19:46 | DRG 300 ==
LOC: ENRESERVTM → ENRESERVDT → EDBD 20:04 → C.EDA 20:06 → C.2T 12-04 02:13 → EDBEDREQ 12-04 02:14
PROVIDERS: ADMIT Internal Medicine; ATTEND Hospitalist
PROC: 0HDMXZZ Extraction of Right Foot Skin, External Approach (ICD-10-PCS; principal; 2016-12-03)
PROC: 0HDNXZZ Extraction of Left Foot Skin, External Approach (ICD-10-PCS; principal; 2016-12-03)
DX: I82.B12 Acute embolism and thrombosis of left subclavian vein (principal); A04.7 Enterocolitis due to Clostridium difficile; I48.0 Paroxysmal atrial fibrillation; I12.9 Hypertensive chronic kidney disease with stage 1 through stage 4 chronic kidney disease, or unspecified chronic kidney disease; E03.9 Hypothyroidism, unspecified; G20 Parkinson's disease; N18.3 Chronic kidney disease, stage 3 (moderate); D63.1 Anemia in chronic kidney disease; M81.0 Age-related osteoporosis without current pathological fracture; Z66 Do not resuscitate; Z86.73 Personal history of transient ischemic attack (TIA), and cerebral infarction without residual deficits; Z95.0 Presence of cardiac pacemaker; Z86.14 Personal history of Methicillin resistant Staphylococcus aureus infection; Z88.0 Allergy status to penicillin; Z79.02 Long term (current) use of antithrombotics/antiplatelets; Z79.899 Other long term (current) drug therapy; Z82.49 Family history of ischemic heart disease and other diseases of the circulatory system; L89.892 Pressure ulcer of other site, stage 2; L89.622 Pressure ulcer of left heel, stage 2; I25.10 Atherosclerotic heart disease of native coronary artery without angina pectoris; I73.9 Peripheral vascular disease, unspecified; M19.90 Unspecified osteoarthritis, unspecified site

== ENCOUNTER → 2017-01-29 | Outpatient (CLI) | payer OTHER ==
[~2017-01-29] MED LIST changes: +ACET-1311 PO; +ASPI81TA28 PO; +ATOR-22 PO; +DOXY100C2 PO; +LEVO1TAB35 PO; -LISI-461 PO; +MULT-116 PO; -MULT-506 PO; +SULF800T23 PO; -TRAM-10 PO; -VANC5CAP PO; +VITAMIN B12 INJECT IM; +WARF2TAB8 PO
[2017-01-29 09:24] LABS: INR 1.3 (0.9-1.1); PROTHROMBIN TIME (PATIENT) 13.9 SECONDS (9.0-12.0)
== END ==
LOC: C.LABCC 08:24 → EDSTATUS 02-02 11:00
PROVIDERS: ATTEND Internal Medicine
DX: I82.409 Acute embolism and thrombosis of unspecified deep veins of unspecified lower extremity (principal)

== ENCOUNTER → 2017-02-05 | Outpatient (CLI) | payer OTHER ==
[2017-02-05 09:15] LABS: INR 2.1 (0.9-1.1); PROTHROMBIN TIME (PATIENT) 23.4 SECONDS (9.0-12.0)
== END ==
LOC: C.LABCC 08:49
PROVIDERS: ATTEND Internal Medicine
DX: I82.409 Acute embolism and thrombosis of unspecified deep veins of unspecified lower extremity (principal)

== ENCOUNTER → 2017-02-11 | Outpatient (CLI) | payer OTHER ==
[2017-02-11 08:58] LABS: BASO % 0.6 %; BASO ABS # 0.04 K/uL (0-0.2); COMPLETE YES; EOS % 2.4 %; HEMATOCRIT 29.5 % (37-47); IG% 0.3 %; LYMPH % 26.4 %; LYMPH ABS # 1.75 K/uL (1.2-3.4); MEAN CELL VOLUME 87.3 fL (80-100); MEAN CORPUSCULAR HEMOGLOBIN 28.7 pg (25-34); MEAN CORPUSCULAR HGB CONC 32.9 g/dl (32-36); MEAN PLATELET VOLUME 9.5 fL (7.4-10.4); MONO % 9.8 %; NEUT % 60.5 %; PLATELET COUNT 290 K/uL (130-400); RED BLOOD COUNT 3.38 M/uL (4.2-5.4); WHITE BLOOD COUNT 6.64 K/uL (4.8-10.8)
--- NOTE | 2017-02-15 10:51 | CODING QUERY MEDICAL NECESSITY ---
SUPPORTING DIAGNOSIS NEEDED A supporting diagnosis is required for the test/procedure performed on this patient in order for us to be reimbursed by the patient's insurance. Please provide a supporting diagnosis for the following test/procedure listed below next to the test name along with your signature. *If there is no additional diagnosis for this patient that would support the following test/procedure please document that below next to the test/procedure. Test(s)/Procedure(s) that require a supporting diagnosis: * VITAMIN B-12 LEVEL DIAGNOSIS: * DOS: 02/11/17 Provider Signature: Date: Thank you Yolette Erwin Health Information Management Once completed, please kindly fax back to [phone] For questions please call [phone]
== END ==
LOC: C.LABCC 07:57
PROVIDERS: ATTEND Internal Medicine
DX: E53.9 Vitamin B deficiency, unspecified (principal); D64.9 Anemia, unspecified; N18.3 Chronic kidney disease, stage 3 (moderate)

== ENCOUNTER → 2017-02-15 | Outpatient (CLI) | payer OTHER ==
[~2017-02-15] MED LIST changes: +CLR10 PO; +CYNI1000 IM; +LCTX PO; +METR-163 PO; +POVI10SO38 TOP
[2017-02-15 09:06] LABS: THYROID STIMULATING HORMONE 0.18 uIu/ml (0.300-4.500)
== END ==
LOC: C.LABCC 08:35
PROVIDERS: ATTEND Internal Medicine
DX: E03.9 Hypothyroidism, unspecified (principal)

== ENCOUNTER → 2017-02-22 | Outpatient (CLI) | payer OTHER ==
[2017-02-22 09:18] LABS: INR 3.2 (0.9-1.1); PROTHROMBIN TIME (PATIENT) 36.2 SECONDS (9.0-12.0)
== END ==
LOC: C.LABCC 08:29
PROVIDERS: ATTEND Internal Medicine
DX: I82.409 Acute embolism and thrombosis of unspecified deep veins of unspecified lower extremity (principal)

== ENCOUNTER → 2017-02-26 | Outpatient (CLI) | payer OTHER ==
[2017-02-26 08:32] LABS: BASO % 0.5 %; BASO ABS # 0.03 K/uL (0-0.2); COMPLETE YES; EOS % 5.6 %; HEMATOCRIT 31.3 % (37-47); IG% 0.3 %; LYMPH % 16.9 %; LYMPH ABS # 1.06 K/uL (1.2-3.4); MEAN CELL VOLUME 88.2 fL (80-100); MEAN CORPUSCULAR HEMOGLOBIN 29.3 pg (25-34); MEAN CORPUSCULAR HGB CONC 33.2 g/dl (32-36); MEAN PLATELET VOLUME 9.4 fL (7.4-10.4); MONO % 15.3 %; NEUT % 61.4 %; PLATELET COUNT 235 K/uL (130-400); RED BLOOD COUNT 3.55 M/uL (4.2-5.4); WHITE BLOOD COUNT 6.26 K/uL (4.8-10.8)
== END ==
LOC: C.LABCC 08:18
PROVIDERS: ATTEND Internal Medicine
DX: D64.9 Anemia, unspecified (principal)

== ENCOUNTER → 2017-03-02 | Outpatient (CLI) | payer OTHER ==
[~2017-03-02] MED LIST changes: -DOXY100C2 PO
[2017-03-02 08:45] LABS: INR 4.7 (0.9-1.1); PROTHROMBIN TIME (PATIENT) 54.1 SECONDS (9.0-12.0)
== END | disposition home or self-care (01) ==
LOC: C.LABCC 08:16
PROVIDERS: ATTEND Internal Medicine
DX: I82.409 Acute embolism and thrombosis of unspecified deep veins of unspecified lower extremity (principal)

== ENCOUNTER → 2017-03-04 | Outpatient (CLI) | payer OTHER ==
[2017-03-04 10:28] LABS: PROTHROMBIN TIME (PATIENT) 59.9 SECONDS (9.0-12.0)
[2017-03-04 10:47] LABS: INR 5.2 (0.9-1.1)
== END ==
LOC: C.LABCC 09:06
PROVIDERS: ATTEND Internal Medicine
DX: I82.409 Acute embolism and thrombosis of unspecified deep veins of unspecified lower extremity (principal)

== ENCOUNTER → 2017-03-08 | Outpatient (CLI) | payer OTHER ==
[2017-03-08 10:13] LABS: INR 2.6 (0.9-1.1); PROTHROMBIN TIME (PATIENT) 29.5 SECONDS (9.0-12.0)
== END ==
LOC: C.LABCC 09:42
PROVIDERS: ATTEND Internal Medicine
DX: I82.409 Acute embolism and thrombosis of unspecified deep veins of unspecified lower extremity (principal)

== ENCOUNTER → 2017-03-16 | Outpatient (CLI) | payer OTHER ==
[2017-03-16 08:27] LABS: INR 1.5 (0.9-1.1); PROTHROMBIN TIME (PATIENT) 16.5 SECONDS (9.0-12.0)
== END ==
LOC: C.LABCC 08:00
PROVIDERS: ATTEND Internal Medicine
DX: I82.409 Acute embolism and thrombosis of unspecified deep veins of unspecified lower extremity (principal)

== ENCOUNTER → 2017-03-24 | Outpatient (CLI) | payer OTHER ==
[2017-03-24 12:49] LABS: INR 3.1 (0.9-1.1); PROTHROMBIN TIME (PATIENT) 34.9 SECONDS (9.0-12.0)
== END | disposition home or self-care (01) ==
LOC: C.LABCC 11:33
PROVIDERS: ATTEND Internal Medicine
DX: I82.409 Acute embolism and thrombosis of unspecified deep veins of unspecified lower extremity (principal)

== ENCOUNTER → 2017-03-29 | Outpatient (CLI) | payer OTHER ==
[2017-03-29 10:19] LABS: INR 3.4 (0.9-1.1); PROTHROMBIN TIME (PATIENT) 38.1 SECONDS (9.0-12.0)
== END ==
LOC: C.LABCC 09:17
PROVIDERS: ATTEND Internal Medicine
DX: I82.409 Acute embolism and thrombosis of unspecified deep veins of unspecified lower extremity (principal)

== ENCOUNTER → 2017-03-31 | Outpatient (CLI) | payer OTHER ==
[2017-03-31 12:49] LABS: THYROID STIMULATING HORMONE 1.1 uIu/ml (0.300-4.500)
== END ==
LOC: C.LABCC 13:55
PROVIDERS: ATTEND Internal Medicine
DX: E03.9 Hypothyroidism, unspecified (principal)

== ENCOUNTER → 2017-04-06 | Outpatient (CLI) | payer OTHER ==
[2017-04-06 09:30] LABS: INR 3.2 (0.9-1.1); PROTHROMBIN TIME (PATIENT) 35.8 SECONDS (9.0-12.0)
== END ==
LOC: C.LABCC 08:31
PROVIDERS: ATTEND Internal Medicine
DX: I82.409 Acute embolism and thrombosis of unspecified deep veins of unspecified lower extremity (principal)

== ENCOUNTER → 2017-04-14 | Outpatient (CLI) | payer OTHER ==
[2017-04-14 12:25] LABS: INR 2.1 (0.9-1.1); PROTHROMBIN TIME (PATIENT) 22.7 SECONDS (9.0-12.0)
== END ==
LOC: C.LABCC 15:34
PROVIDERS: ATTEND Internal Medicine
DX: I82.409 Acute embolism and thrombosis of unspecified deep veins of unspecified lower extremity (principal)

== ENCOUNTER → 2017-04-22 | Outpatient (CLI) | payer OTHER ==
[2017-04-22 08:49] LABS: INR 1.5 (0.9-1.1); PROTHROMBIN TIME (PATIENT) 15.9 SECONDS (9.0-12.0)
== END ==
LOC: C.LABCC 08:16
PROVIDERS: ATTEND Internal Medicine
DX: I82.409 Acute embolism and thrombosis of unspecified deep veins of unspecified lower extremity (principal)

== ENCOUNTER → 2017-04-29 | Outpatient (CLI) | payer OTHER ==
[2017-04-29 09:12] LABS: BASO % 0.8 %; BASO ABS # 0.04 K/uL (0-0.2); COMPLETE YES; HEMATOCRIT 30.3 % (37-47); IG% 0.4 %; LYMPH % 33.7 %; LYMPH ABS # 1.75 K/uL (1.2-3.4); MEAN CELL VOLUME 90.2 fL (80-100); MEAN CORPUSCULAR HEMOGLOBIN 27.7 pg (25-34); MEAN CORPUSCULAR HGB CONC 30.7 g/dl (32-36); MEAN PLATELET VOLUME 9.7 fL (7.4-10.4); MONO % 12.7 %; NEUT % 48.4 %; PLATELET COUNT 225 K/uL (130-400); RED BLOOD COUNT 3.36 M/uL (4.2-5.4)
[2017-04-29 09:20] LABS: ALT/SGPT 24 U/L (12-78); BLOOD UREA NITROGEN 50 mg/dl (7-18); BUN/CREATININE RATIO 45.5 (10-20); CALCIUM 9.8 mg/dl (8.5-10.1); CARBON DIOXIDE 28 mmol/L (21-32); CHLORIDE 99 mmol/L (98-107); GLUCOSE 97 mg/dl (70-99); POTASSIUM 4.1 mmol/L (3.5-5.1); SODIUM 137 mmol/L (136-145)
[2017-04-29 09:25] LABS: ALB/GLOB RATIO 1.1 (0.9-2); ALKALINE PHOSPHATASE 65 U/L (45-117); AST/SGOT 20 U/L (15-37); FERRITIN 39.1 ng/ml (8.0-388.0); TOTAL IRON BINDING CAPACITY 352 mcg/dl (250-450)
--- NOTE | 2017-05-05 09:29 | CODING QUERY MEDICAL NECESSITY ---
SUPPORTING DIAGNOSIS NEEDED Dr. Williamson, A supporting diagnosis is required for the test/procedure performed on this patient in order for us to be reimbursed by the patient's insurance. Please provide a supporting diagnosis for the following test/procedure listed below next to the test name along with your signature. *If there is no additional diagnosis for this patient that would support the following test/procedure please document that below next to the test/procedure. Test(s)/Procedure(s) that require a supporting diagnosis: * ([id number]) B12 VITAMIN LEVEL DIAGNOSIS: DATE OF SERVICE: 04/29/17 Provider Signature: Date: Thank you Ahsan Martin [facility] Information Management Once completed, please kindly fax back to [phone] For questions please call [phone]
== END | disposition home or self-care (01) ==
LOC: C.LABCC 08:01
PROVIDERS: ATTEND Internal Medicine
DX: M81.0 Age-related osteoporosis without current pathological fracture (principal); D64.9 Anemia, unspecified; I12.9 Hypertensive chronic kidney disease with stage 1 through stage 4 chronic kidney disease, or unspecified chronic kidney disease; N18.3 Chronic kidney disease, stage 3 (moderate); G20 Parkinson's disease

== ENCOUNTER → 2017-04-30 | Outpatient (CLI) | payer OTHER ==
[2017-04-30 13:10] LABS: INR 1.4 (0.9-1.1); PROTHROMBIN TIME (PATIENT) 14.7 SECONDS (9.0-12.0)
== END | disposition home or self-care (01) ==
LOC: C.LABCC 12:48
PROVIDERS: ATTEND Internal Medicine
DX: I82.409 Acute embolism and thrombosis of unspecified deep veins of unspecified lower extremity (principal)

== ENCOUNTER → 2017-05-10 | Outpatient (CLI) | payer OTHER ==
[2017-05-10 10:58] LABS: INR 3.1 (0.9-1.1); PROTHROMBIN TIME (PATIENT) 34.8 SECONDS (9.0-12.0)
== END ==
LOC: C.LABCC 08:58
PROVIDERS: ATTEND Internal Medicine
DX: I82.409 Acute embolism and thrombosis of unspecified deep veins of unspecified lower extremity (principal)

== ENCOUNTER → 2017-05-17 | Outpatient (CLI) | payer OTHER ==
[~2017-05-17] MED LIST changes: -CLR10 PO; -CYNI1000 IM; -LCTX PO; -METR-163 PO; -POVI10SO38 TOP
[2017-05-17 13:22] LABS: PROTHROMBIN TIME (PATIENT) 33.8 SECONDS (9.0-12.0)
== END ==
LOC: C.LABCC 12:44
PROVIDERS: ATTEND Internal Medicine
DX: I82.409 Acute embolism and thrombosis of unspecified deep veins of unspecified lower extremity (principal)

== ENCOUNTER → 2017-05-20 | Outpatient (CLI) | payer OTHER ==
[2017-05-20 09:46] LABS: INR 1.6 (0.9-1.1); PROTHROMBIN TIME (PATIENT) 17.3 SECONDS (9.0-12.0)
== END ==
LOC: C.LABCC 09:21
PROVIDERS: ATTEND Internal Medicine
DX: I82.409 Acute embolism and thrombosis of unspecified deep veins of unspecified lower extremity (principal); L89.893 Pressure ulcer of other site, stage 3

== ENCOUNTER → 2017-05-31 | Outpatient (CLI) | payer OTHER ==
[2017-05-31 09:16] LABS: INR 1.8 (0.9-1.1); PROTHROMBIN TIME (PATIENT) 20.2 SECONDS (9.0-12.0)
== END ==
LOC: C.LABCC 08:07
PROVIDERS: ATTEND Internal Medicine
DX: I82.409 Acute embolism and thrombosis of unspecified deep veins of unspecified lower extremity (principal); I48.91 Unspecified atrial fibrillation

== ENCOUNTER → 2017-06-04 | Outpatient (CLI) | payer OTHER ==
[2017-06-04 08:45] LABS: INR 3.4 (0.9-1.1); PROTHROMBIN TIME (PATIENT) 38.8 SECONDS (9.0-12.0)
== END ==
LOC: C.LABCC 08:09
PROVIDERS: ATTEND Internal Medicine
DX: I82.409 Acute embolism and thrombosis of unspecified deep veins of unspecified lower extremity (principal)

== ENCOUNTER 2017-07-12 18:54 | Inpatient (IN) | payer OTHER ==
[~2017-07-12] VITALS: Ht 157.5 cm; Wt 63.1 kg
[~2017-07-12 18:54] MED LIST changes: -ACET-1311 PO; -ASPI81TA28 PO; -ATOR-22 PO; -LEVO1TAB35 PO; -MULT-116 PO; -SULF800T23 PO; -VITAMIN B12 INJECT IM
[2017-07-12] MEDS ORDERED: VANCOMYCIN 1GM/270ML NSS IV STA (19:11)
[2017-07-12] MEDS ORDERED: AZTREONAM IV 2,000 MG in DEXTROSE 5% 100ML 100 ML IV STA (19:11)
[2017-07-12] MEDS ORDERED: SODIUM CHLORIDE 0.9% 500ML 500 ML IV STA (19:11)
[2017-07-12] MEDS ORDERED: SODIUM CHLORIDE 0.9% 1000ML 1,000 ML IV STA (19:11)
[2017-07-12 19:56] LABS: BASO % 0.2 %; BASO ABS # 0.02 K/uL (0-0.2); COMPLETE YES; EOS % 1.1 %; HEMATOCRIT 33.7 % (37-47); IG% 0.2 %; LYMPH % 12.8 %; LYMPH ABS # 1.26 K/uL (1.2-3.4); MEAN CORPUSCULAR HEMOGLOBIN 28.3 pg (25-34); MEAN CORPUSCULAR HGB CONC 32.9 g/dl (32-36); MEAN PLATELET VOLUME 9.4 fL (7.4-10.4); MONO % 10.8 %; NEUT % 74.9 %; PLATELET COUNT 239 K/uL (130-400); RED BLOOD COUNT 3.92 M/uL (4.2-5.4); WHITE BLOOD COUNT 9.84 K/uL (4.8-10.8)
--- NOTE | 2017-07-12 20:07 | DIAGNOSTIC IMAGING REPORT ---
RIGHT TOE(S) MIN 2 VIEWS HISTORY: 86 years-old Female right great toe cellulitis and ulcer Right COMPARISON: None available TECHNIQUE: 3 views of the right great toe. FINDINGS: The bones are severely demineralized. Degenerative changes are seen throughout the interphalangeal joints appear moderate. Soft tissue ossifications are seen about the first digit. There is moderate soft tissue swelling of the first digit with mild cortical irregularity and lucency involving the volar aspect of the first distal phalanx seen best on the lateral view. IMPRESSION: Mild cortical irregularity and lucency involving the volar aspect of the first distal phalanx with associated moderate soft tissue swelling may reflect developing osteomyelitis in the appropriate clinical setting. The above report was generated using voice recognition software. It may contain grammatical, syntax or spelling errors. Electronically signed by: Edwin Fajardo M.D. 07/12/2017 8:06 PM Dictated Date/Time: 07/12/2017 8:04 PM
[2017-07-12 20:15] LABS: ALT/SGPT 22 U/L (12-78); BLOOD UREA NITROGEN 40 mg/dl (7-18); BUN/CREATININE RATIO 41.4 (10-20); CALCIUM 9.7 mg/dl (8.5-10.1); CARBON DIOXIDE 29 mmol/L (21-32); CHLORIDE 100 mmol/L (98-107); CREATININE 0.97 mg/dl (0.60-1.20); GLUCOSE 137 mg/dl (70-99); POTASSIUM 3.7 mmol/L (3.5-5.1); SODIUM 136 mmol/L (136-145)
[2017-07-12 20:18] LABS: ALKALINE PHOSPHATASE 88 U/L (45-117); AST/SGOT 22 U/L (15-37)
[2017-07-12] MEDS ORDERED: VITAMIN B12 INJECT IM (20:27)
[2017-07-12] MEDS ORDERED: LEVO100T7 PO (20:31)
[2017-07-12] MEDS ORDERED: SULF800T23 PO (20:34)
[2017-07-12] MEDS ORDERED: ACET-1311 PO (20:38)
[2017-07-12] MEDS ORDERED: MULT-116 PO (20:41)
[2017-07-12] MEDS ORDERED: ALUMINUM/MAGNESIUM/SIMETH (MAALOX MAX) 30 ML UDC PO PRN (21:15)
[2017-07-12] MEDS ORDERED: POLYETHYLENE (MIRALAX) 17 GM PACK PO PRN (21:15)
[2017-07-12] MEDS ORDERED: ONDANSETRON INJ 2 MG/ML 2 ML VIAL IV PRN (21:15)
--- NOTE | 2017-07-12 21:19 | History and Physical ---
History & Physical Date & Time of Service: Jul 12, 2017 at 21:18 Chief Complaint: Rt Foot Pain/Swelling, Red/ Alessia Patel Primary Care Physician: Vivek Aggarwal History of Present Illness Source: patient, family 86-year-old female with past medical history of chronic kidney disease, hypertension, hyperlipidemia, hypothyroidism, osteoporosis, Parkinson's, TIA, DVT present to the ER with complaints of worsening erythema of her right foot that was noticed today. The patient is a resident of [facility] and the nursing staff had noticed bleeding through her sock off her right foot and found an open sore with erythema of the right foot. The patient denies any history of trauma and that she usually ambulates using a wheelchair. Denies any fevers or chills, loss of sensation in her lower extremities. She however notes that her toenails were recently clipped about 10 days ago. She was recently seen by wound clinic for a decubitus ulcer in her right foot in early June. Denies any chest pain, shortness of breath, palpitations Past Medical/Surgical History Medical Problems: (1) Cardiac pacemaker in situ Status: Chronic (2) CKD (chronic kidney disease), stage III Status: Chronic (3) HTN (hypertension) Status: Chronic (4) Hyperlipidemia Status: Chronic (5) Hypothyroidism Status: Chronic (6) Osteoporosis Status: Chronic (7) Parkinson's disease Status: Chronic (8) TIA (transient ischemic attack) Status: Chronic Surgical Problems: (1) H/O colonoscopy Permanent Comment: 11/21- several hyperplastic polyps, 1 polyp with adenomatous changes Status: Chronic (2) S/P laparotomy Status: Chronic (3) S/P tonsillectomy and adenoidectomy Status: Chronic Family History Cancer Heart disease Social History Smoking Status: Never Smoker Marital Status: Housing status: lives alone Occupational Status: retired Immunizations History of Influenza Vaccine: Yes Influenza Vaccine Date: Aug 30, 2015 History of Tetanus Vaccine?: Yes Tetanus Immunization Date: Apr 17, 2014 History of Pneumococcal: Yes History of Hepatitis B Vaccine: Unknown Multi-Drug Resistant Organisms History of MDRO: Yes Type of MDRO: MRSA Allergies Coded Allergies: Amoxicillin (Verified Allergy, Mild, RASH, 12/03/16) Home Medications Scheduled Acetaminophen Tab (Tylenol), 650 MG PO HS Atenolol (Tenormin), 75 MG PO BID Calcium/Vitamin D (Os-Niall 500 Plus D), 1 TAB PO BID Cholecalciferol (Vitamin D3), 1,000 UNITS PO DAILY Clopidogrel (Plavix), 75 MG PO DAILY Cyclosporine (Restasis Eye Drops), 1 DROP OP BID Ferrous Sulfate (Fe Tabs), 325 MG PO BID Fish Oil ([place]-3), 1 CAP PO BID Hctz/Lisinopril (Zestoretic 20MG/25MG), 1 TAB PO DAILY Levothyroxine Sodium (Levothyroxine Sodium), 100 MCG PO DAILY Multiple Vitamins W/ Minerals (Theragran-M), 1 TAB PO DAILY Sulfa/Trimethoprim (Bactrim Ds 800MG/160MG), 1 TAB PO BID [Vitamin B12 Inject], 1 ML IM [id number] Scheduled PRN Acetaminophen (Tylenol), 650 MG PO Q6H PRN for Pain or Fever Review of Systems Constitutional: No fever, No chills Eyes: No worsening of vision ENT: No hearing loss Respiratory: No cough, No sputum Cardiovascular: No chest pain Abdomen: No pain, No nausea, No vomiting Musculoskeletal: + swelling (of right foot) Genitourinary - Female: No dysuria Neurologic: No numbness/tingling Psychiatric: No depression symptoms Endocrine: No fatigue Hematologic / Lymphatic: No abnormal bleeding/bruising Integumentary: No rash Physical Exam Vital Signs Date Time Temp Pulse Resp B/P (MAP) Pulse Ox O2 Delivery O2 Flow Rate FiO2 07/12/17 21:06 82 22 191/77 96 Room Air 07/12/17 19:01 36.4 90 18 149/56 95 Room Air General Appearance: WD/WN, no apparent distress Head: normocephalic ENT: hearing grossly normal Neck: supple Respiratory/Chest: chest non-tender, lungs clear, + decreased breath sounds Cardiovascular: regular rate, rhythm Abdomen/GI: normal bowel sounds, non tender, soft Extremities/Musculoskelatal: + swelling, + pertinent finding (right lower extremity appears swollen, erythematous and tender to palpation. Has an open area on top of great toe) Neurologic/Psych: alert, normal mood/affect, oriented x 3 Diagnostics Laboratory Results Results Past 24 Hours Test 07/12/17 19:40 Range/Units White Blood Count 9.84 4.8-10.8 K/uL Red Blood Count 3.92 4.2-5.4 M/uL Hemoglobin 11.1 12.0-16.0 g/dL Hematocrit 33.7 37-47 % Mean Corpuscular Volume 86.0 80-100 fL Mean Corpuscular Hemoglobin 28.3 25-34 pg Mean Corpuscular Hemoglobin Concent 32.9 32-36 g/dl Platelet Count 239 130-400 K/uL Mean Platelet Volume 9.4 7.4-10.4 fL Neutrophils (%) (Auto) 74.9 % Lymphocytes (%) (Auto) 12.8 % Monocytes (%) (Auto) 10.8 % Eosinophils (%) (Auto) 1.1 % Basophils (%) (Auto) 0.2 % Neutrophils # (Auto) 7.37 1.4-6.5 K/uL Lymphocytes # (Auto) 1.26 1.2-3.4 K/uL Monocytes # (Auto) 1.06 0.11-0.59 K/uL Eosinophils # (Auto) 0.11 0-0.5 K/uL Basophils # (Auto) 0.02 0-0.2 K/uL RDW Standard Deviation 47.0 36.4-46.3 fL RDW Coefficient of Variation 15.1 11.5-14.5 % Immature Granulocyte % (Auto) 0.2 % Immature Granulocyte # (Auto) 0.02 0.00-0.02 K/uL Erythrocyte Sedimentation Rate 39 0-21 mm/hr Sodium Level 136 136-145 mmol/L Potassium Level 3.7 3.5-5.1 mmol/L Chloride Level 100 98-107 mmol/L Carbon Dioxide Level 29 21-32 mmol/L Anion Gap 7.0 3-11 mmol/L Blood Urea Nitrogen 40 7-18 mg/dl Creatinine 0.97 0.60-1.20 mg/dl Est Creatinine Clear Calc Drug Dose 36.0 ml/min Estimated GFR () 61.3 Estimated GFR (Non- 52.9 BUN/Creatinine Ratio 41.4 10-20 Random Glucose 137 70-99 mg/dl Calcium Level 9.7 8.5-10.1 mg/dl Total Bilirubin 0.3 0.2-1 mg/dl Direct Bilirubin < 0.1 0-0.2 mg/dl Aspartate Amino Transf (AST/SGOT) 22 15-37 U/L Alanine Aminotransferase (ALT/SGPT) 22 12-78 U/L Alkaline Phosphatase 88 45-117 U/L C-Reactive Protein 1.31 0-0.29 mg/dl Total Protein 7.1 6.4-8.2 gm/dl Albumin 3.3 3.4-5.0 gm/dl Microbiology Results 07/12/17 Blood Culture, Received Pending 07/12/17 Blood Culture, Received Pending 07/12/17 Gram Stain - Final, Resulted 07/12/17 Wound Culture, Resulted Pending Diagnostic Radiology [~ rep ct add3]] RIGHT TOE(S) MIN 2 VIEWS HISTORY: 86 years-old Female right great toe cellulitis and ulcer Right COMPARISON: None available TECHNIQUE: 3 views of the right great toe. FINDINGS: The bones are severely demineralized. Degenerative changes are seen throughout the interphalangeal joints appear moderate. Soft tissue ossifications are seen about the first digit. There is moderate soft tissue swelling of the first digit with mild cortical irregularity and lucency involving the volar aspect of the first distal phalanx seen best on the lateral view. IMPRESSION: Mild cortical irregularity and lucency involving the volar aspect of the first distal phalanx with associated moderate soft tissue swelling may reflect developing osteomyelitis in the appropriate clinical setting. The above report was generated using voice recognition software. It may contain grammatical, syntax or spelling errors. Electronically signed by: Edwin Fajardo M.D. 07/12/2017 8:06 PM Dictated Date/Time: 07/12/2017 8:04 PM Impression Assessment and Plan 86-year-old female with past medical history of chronic kidney disease, hypertension, hyperlipidemia, hypothyroidism, osteoporosis, Parkinson's, TIA, DVT present to the ER with complaints of worsening erythema of her right foot that was noticed today by the nursing staff at [facility]. No reported fevers or chills Cellulitis/osteomyelitis of right great toe - Right great toe x-ray - Wound cultures and blood cultures currently pending - Started on vancomycin and imipenem - Orthopedic and wound care consult History of TIA/hypertension - Continue Plavix, Zestoretic, atenolol Hypothyroidism: - Continue Synthroid Osteoporosis: Continue vitamin D DVT prophylaxis: SCDs Disposition: Admitted to [facility] Resident Physician Supervision Note: I was present with Dr. Gabriel during the history and exam. I discussed the case with the resident and agree with the findings and plan as documented in the note. Any exceptions or clarifications are listed here: 86 y/o F Hx HTN, pacer, TIA, CKD, Parkinson's - presenting with RLE cellulitis - extensive - evidence of osteo on XR OE AAO x 3 S1,2 R CTAB NT, ND + extensive cellulitis over RLE - open area at R great toe P: Pt is placed on Imipenem and Vanc pending culture results Will likely need PICC and extended outpt treatment Will consult surgery No additional changes to home meds effected Discussed with pt, family, resident Documented By: Ad Pavon VTE Prophylaxis VTE Risk Assessment Done? Y/N: Yes Risk Level: Moderate Resident Tracking Resident Involvement: Resident Care Provided Care Provided: Adult Hospital Medicine
[2017-07-12] MEDS ORDERED: VANCOMYCIN CONSULT ACTIVE PRN (23:00)
--- NOTE | 2017-07-12 23:04 | Pharmacy Progress Note ---
Pharmacy Abx Initial Consult Date of Service Jul 12, 2017. Pharmacy Dosing Scope Date of Consult: 07/12/17 Consultation requested by: Dr. Christian Pharmacy is consulted to initiate vancomycin IV dosing therapy, order appropriate labs and adjust drug dose/frequency. Subjective The patient is a 86 year old female admitted on 07/12/17. Objective Height (Feet): 5 Height (Inches): 4.00 Weight (Kilograms): 63.000 Vital Signs (Past 12Hrs) Vital Signs Past 12 Hours Date Time Temp Pulse Resp B/P (MAP) Pulse Ox O2 Delivery O2 Flow Rate FiO2 07/12/17 21:25 184/89 07/12/17 21:06 82 22 191/77 96 Room Air 07/12/17 19:01 36.4 90 18 149/56 95 Room Air Lab Results (24Hrs) Laboratory Tests (24 Hours) Test 07/12/17 19:40 C-Reactive Protein 1.31 mg/dl (0-0.29) H Erythrocyte Sedimentation Rate 39 mm/hr (0-21) H White Blood Count 9.84 K/uL (4.8-10.8) Red Blood Count 3.92 M/uL (4.2-5.4) L Hemoglobin 11.1 g/dL (12.0-16.0) L Hematocrit 33.7 % (37-47) L Mean Corpuscular Volume 86.0 fL (80-100) Mean Corpuscular Hemoglobin 28.3 pg (25-34) Mean Corpuscular Hemoglobin Concent 32.9 g/dl (32-36) Platelet Count 239 K/uL (130-400) Mean Platelet Volume 9.4 fL (7.4-10.4) Neutrophils (%) (Auto) 74.9 % Lymphocytes (%) (Auto) 12.8 % Monocytes (%) (Auto) 10.8 % Eosinophils (%) (Auto) 1.1 % Basophils (%) (Auto) 0.2 % Neutrophils # (Auto) 7.37 K/uL (1.4-6.5) H Lymphocytes # (Auto) 1.26 K/uL (1.2-3.4) Monocytes # (Auto) 1.06 K/uL (0.11-0.59) H Eosinophils # (Auto) 0.11 K/uL (0-0.5) Basophils # (Auto) 0.02 K/uL (0-0.2) Micro Results Date/Time Source Procedure Growth Status 07/12/17 20:02 Blood Blood Culture Pending Received 07/12/17 19:40 Blood Blood Culture Pending Received 07/12/17 19:15 Abscess Swab Gram Stain - Final Resulted 07/12/17 19:15 Abscess Swab Wound Culture Pending Resulted Risk Factors for Resistance * Resident in a senior care or extended-care facility * MRSA in foot ulcer Assessment & Plan Assessment 86 year old female admitted with worsening R foot erythema; staff at [facility] noticed bleeding through sock earlier today. Patient has a PMH of MRSA on decubitus ulcer (seen by wound clinic), TIA, DVT, and CKD. Plan vancomycin for treatment of cellulitis, possible osteo Vancomycin IV * Loading dose: 1000 mg (15.8 mg/kg) * Maintenance dose: 1000 mg IV (15.8 mg/kg) every 16 hours (population pharmacokinetics suggest half-life of 20 hr; starting first maintenance dose early due to inadequate load) * Goal trough level for cellulitis h/o MRSA : 15 to 20 mcg/mL * Trough ordered for 07/14/17 prior to 1600 dose * A less than traditional dose has been selected due to likelihood of drug accumulation in patient with h/o CKD. Pharmacy will continue to follow and will adjust dose/frequency as necessary. Thank you.
[2017-07-13 00:29] VITALS: BP 168/70; PULSE 75; TEMP 37.1; O2SAT 93; Ht 157.5 cm; Wt 63.1 kg
[2017-07-13] MEDS ORDERED: IMIPENEM/CILASTATIN CONSULT ACTIVE PRN (01:45)
[2017-07-13] MEDS: IMIPENEM/CILASTATIN IV 300 MG in DEXTROSE 5% 100ML 100 ML IV SCH ×4 (01:54→20:35)
--- NOTE | 2017-07-13 02:16 | EMERGENCY ROOM VISIT NOTE ---
History Report prepared by Samuel: Gilberto Sharp Under the Supervision of: Dr. Srinivasan Abbasi M.D. First contact with patient: 18:58 Stated Complaint: RT FOOT PAIN/SWELLING, RED/ [facility] History of Present Illness The patient is a 86 year old female who presents to the Emergency Room with complaints of worsening erythema to her right lower extremity that started today. She rates her discomfort as a 4/10 in severity. The patient is accompanied by her daughter who states that the patient had a sore on her right first toe. She states that the nursing staff noticed the patient was bleeding through her sock around the sore region and went to check the area. The patient' s family states that the nursing staff noticed the area was erythematous and swollen. She reports that throughout the day the erythema spread up her foot and kim. The patient's family states that the nursing staff tried to call the [facility] doctor in but he was unavailable, which prompted her to come to the ED. She admits that the patient has had venous trouble with her legs and wounds in the past, but denies any similar incidents to her current symptoms. The patient's daughter states that the patient was supposed to start antibiotics , but is not sure if she started them. Her daughter admits that the patient has a pacemaker, which she had developed a blood clot in her shoulder from in the past. She denies currently being on a blood thinner. The patient admits that she typically uses a wheelchair and is on a puree diet. She admits to an amoxicillin allergy, which she reports she gets a rash from. The patient denies LOC, headache, fevers, chills, diaphoresis, visual changes, neck pain, chest pain, breathing difficulties, nausea, vomiting, abdominal pain, back pain, melena, hematochezia, urinary symptoms, numbness, weakness, lymphadenopathy, rash, or other complaints. Source of History: family Onset: today Position: foot (right) Symptom Intensity: 4/10 Quality: other (swelling, erythema) Timing: worsening Note: Swelling, Erythema, and pus in right great toe. Review of Systems See HPI for pertinent positives and negatives. A total of ten systems were reviewed and were otherwise negative. 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 (11) TIA (transient ischemic attack) Surgical Problems: (1) H/O colonoscopy (2) S/P laparotomy (3) S/P tonsillectomy and adenoidectomy Family History Cancer Heart disease Social History Smoking Status: Never Smoker Alcohol Use: none Marital Status: Occupation Status: retired Current/Historical Medications Scheduled Acetaminophen Tab (Tylenol), 650 MG PO HS Atenolol (Tenormin), 75 MG PO BID Calcium/Vitamin D (Os-Niall 500 Plus D), 1 TAB PO BID Cholecalciferol (Vitamin D3), 1,000 UNITS PO DAILY Clopidogrel (Plavix), 75 MG PO DAILY Cyclosporine (Restasis Eye Drops), 1 DROP OP BID Ferrous Sulfate (Fe Tabs), 325 MG PO BID Fish Oil ([place]-3), 1 CAP PO BID Hctz/Lisinopril (Zestoretic 20MG/25MG), 1 TAB PO DAILY Levothyroxine Sodium (Levothyroxine Sodium), 100 MCG PO DAILY Multiple Vitamins W/ Minerals (Theragran-M), 1 TAB PO DAILY Sulfa/Trimethoprim (Bactrim Ds 800MG/160MG), 1 TAB PO BID [Vitamin B12 Inject], 1 ML IM [id number] Scheduled PRN Acetaminophen (Tylenol), 650 MG PO Q6H PRN for Pain or Fever Allergies Coded Allergies: Amoxicillin (Verified Allergy, Mild, RASH, 12/03/16) Physical Exam Vital Signs Date Time Temp Pulse Resp B/P (MAP) Pulse Ox O2 Delivery O2 Flow Rate FiO2 07/12/17 21:06 82 22 191/77 96 Room Air 07/12/17 19:01 36.4 90 18 149/56 95 Room Air Physical Exam GENERAL: Awake, alert, well-appearing, in no distress HENT: Normocephalic, atraumatic. Oropharynx unremarkable. EYES: Normal conjunctiva. Sclera non-icteric. NECK: Supple. No nuchal rigidity. FROM. No JVD. RESPIRATORY: Clear to auscultation. CARDIAC: Regular rate, normal rhythm. Extremities warm and well perfused. Pulses equal. ABDOMEN: Soft, non-distended. No tenderness to palpation. No rebound or guarding. No masses. RECTAL: Deferred. MUSCULOSKELETAL: Chest examination reveals no tenderness. The back is symmetrical on inspection without obvious abnormality. There is no CVA tenderness to palpation. No joint edema. LOWER EXTREMITIES: Calves are equal size bilaterally and non-tender. Swelling and redness starting at the right great toe extending up to her kim. Right great toe abscess with pockets of pus. NEURO: Normal sensorium. No sensory or motor deficits noted. SKIN: No rash or jaundice noted. Medical Decision & Procedures ER Provider Diagnostic Interpretation: X-ray: Per my interpretation, radiologist review. RIGHT TOE(S) MIN 2 VIEWS HISTORY: 86 years-old Female right great toe cellulitis and ulcer Right COMPARISON: None available TECHNIQUE: 3 views of the right great toe. FINDINGS: The bones are severely demineralized. Degenerative changes are seen throughout the interphalangeal joints appear moderate. Soft tissue ossifications are seen about the first digit. There is moderate soft tissue swelling of the first digit with mild cortical irregularity and lucency involving the volar aspect of the first distal phalanx seen best on the lateral view. IMPRESSION: Mild cortical irregularity and lucency involving the volar aspect of the first distal phalanx with associated moderate soft tissue swelling may reflect developing osteomyelitis in the appropriate clinical setting. The above report was generated using voice recognition software. It may contain grammatical, syntax or spelling errors. Electronically signed by: Edwin Fajardo M.D. 07/12/2017 8:06 PM Dictated Date/Time: 07/12/2017 8:04 PM Laboratory Results 07/12/17 19:40 Red Blood Count 3.92, Mean Corpuscular Volume 86.0, Mean Corpuscular Hemoglobin 28.3, Mean Corpuscular Hemoglobin Concent 32.9, Mean Platelet Volume 9.4, Neutrophils (%) (Auto) 74.9, Lymphocytes (%) (Auto) 12.8, Monocytes (%) (Auto) 10.8, Eosinophils (%) (Auto) 1.1, Basophils (%) (Auto) 0.2, Neutrophils # (Auto ) 7.37, Lymphocytes # (Auto) 1.26, Monocytes # (Auto) 1.06, Eosinophils # (Auto ) 0.11, Basophils # (Auto) 0.02 07/12/17 19:40 Test 07/12/17 19:40 White Blood Count 9.84 K/uL (4.8-10.8) Red Blood Count 3.92 M/uL (4.2-5.4) Hemoglobin 11.1 g/dL (12.0-16.0) Hematocrit 33.7 % (37-47) Mean Corpuscular Volume 86.0 fL (80-100) Mean Corpuscular Hemoglobin 28.3 pg (25-34) Mean Corpuscular Hemoglobin Concent 32.9 g/dl (32-36) Platelet Count 239 K/uL (130-400) Mean Platelet Volume 9.4 fL (7.4-10.4) Neutrophils (%) (Auto) 74.9 % Lymphocytes (%) (Auto) 12.8 % Monocytes (%) (Auto) 10.8 % Eosinophils (%) (Auto) 1.1 % Basophils (%) (Auto) 0.2 % Neutrophils # (Auto) 7.37 K/uL (1.4-6.5) Lymphocytes # (Auto) 1.26 K/uL (1.2-3.4) Monocytes # (Auto) 1.06 K/uL (0.11-0.59) Eosinophils # (Auto) 0.11 K/uL (0-0.5) Basophils # (Auto) 0.02 K/uL (0-0.2) RDW Standard Deviation 47.0 fL (36.4-46.3) RDW Coefficient of Variation 15.1 % (11.5-14.5) Immature Granulocyte % (Auto) 0.2 % Immature Granulocyte # (Auto) 0.02 K/uL (0.00-0.02) Erythrocyte Sedimentation Rate 39 mm/hr (0-21) Anion Gap 7.0 mmol/L (3-11) Est Creatinine Clear Calc Drug Dose 36.0 ml/min Estimated GFR () 61.3 Estimated GFR (Non- 52.9 BUN/Creatinine Ratio 41.4 (10-20) Calcium Level 9.7 mg/dl (8.5-10.1) Total Bilirubin 0.3 mg/dl (0.2-1) Direct Bilirubin < 0.1 mg/dl (0-0.2) Aspartate Amino Transf (AST/SGOT) 22 U/L (15-37) Alanine Aminotransferase (ALT/SGPT) 22 U/L (12-78) Alkaline Phosphatase 88 U/L (45-117) C-Reactive Protein 1.31 mg/dl (0-0.29) Total Protein 7.1 gm/dl (6.4-8.2) Albumin 3.3 gm/dl (3.4-5.0) Laboratory results reviewed by me Medications Administered Medications (Trade) Dose Ordered Sig/Fritz Route Start Time Stop Time Status Last Admin Dose Admin Vancomycin HCl (Vancomycin 1gm/ 270ml Nss) 1 gm NOW STAT IV 07/12/17 19:11 07/12/17 19:14 DC 07/12/17 21:19 1 GM Sodium Chloride 500 ml @ 999 mls/hr Q31M STAT IV 07/12/17 19:11 07/12/17 19:41 DC 07/12/17 20:19 999 MLS/HR Sodium Chloride 1,000 ml @ 125 mls/hr Q8H STAT IV 07/12/17 19:11 07/13/17 00:14 DC 07/12/17 20:19 125 MLS/HR Aztreonam 2000 mg/ Dextrose 110 ml @ 100 mls/hr NOW STAT IV 07/12/17 19:11 07/12/17 20:16 DC 07/12/17 20:19 100 MLS/HR Procedure Incision Culture Indication: Abscess. Location: Right Great Toe Verbal consent was obtained after the risks and benefits were explained, including but not limited to bleeding, scarring, infection, pain, and bone/joint /nerve damage. At this time, the risks of the procedure are less than the risks of NOT performing the procedure. A time out was taken and the correct patient and site identified. The skin was prepped with Chloraprep and a sterile field set. The abscess cavity was entered with a number 18 gauge needle and pus-like material expressed. Culture was taken. Packing placed and a sterile dressing applied. Detailed wound care instructions and signs and symptoms of worsening infection reviewed with the patient. No complications and the patient tolerated the procedure well. ED Course 1907: The patient was evaluated in room B11B. A complete history and physical exam was performed. 1910: Ordered Aztreonam 2000 mg/Dextrose 110 ml @ 100 mls/hr IV, Sodium Chloride 1000 ml @ 125 mls/hr IV, Sodium Chloride 500 ml @ 999 mls/hr IV, Vancomycin HCl 1 gm IV. 1918: I performed an Incision Culture. See procedure notes for further detail. 1952: I reevaluated the patient and she is stable. Her xrays are finished. I started her on antibiotics. 2012: I discussed the patients case with Dr. Pavon [facility] Hospitalist. He understands the patients condition and agrees to accept the patient. The patient will be further evaluated. 2014: I updated the patients family on the patients results and treatment plan. The patient and her family agree to the treatment plan. The patient will be further evaluated. Medical Decision Triage Nursing notes reviewed. The patient's presentation and history were concerning for swelling and redness in the foot. Etiologies such as cellulitis, abscess, osteomyelitis, DVT, joint effusion, infection, trauma, muscular, lymphedema, idiopathic, CHF, as well as others were entertained. The patient was evaluated. She had signs of infection particularly present in the foot. There was purulence noted on the rate toe. This was cultured. She was given aztreonam and vancomycin. Declined analgesia. The patient had an unremarkable CBC and chemistry panel except for mild anemia. She had an elevated ESR and CRP. X-ray was performed and was concerning for possible osteomyelitis. Given the findings further evaluation and management in the hospital will be necessary. I did discuss case with the hospitalist. The patient was evaluated in the Emergency Room for further management. Medication Reconcilliation Current Medication List: was personally reviewed by me Blood Pressure Screening Patient's blood pressure: Elevated blood pressure Referred to Hospitalist. Consults Time Called: 2012 Consulting Physician: Dr. Pavno [facility] Hospitalist Returned Call: 2012 I discussed the patients case with Dr. Pavon [facility] Hospitalist. He understands the patients condition and agrees to accept the patient. The patient will be further evaluated. Impression Primary Impression: Cellulitis of leg, right Additional Impressions: Cellulitis of great toe, right Osteomyelitis Scribe Attestation The scribe's documentation has been prepared under my direction and personally reviewed by me in its entirety. I confirm that the note above accurately reflects all work, treatment, procedures, and medical decision making performed by me. Departure Information Dispostion Being Evaluated By Hospitalist Referrals [facility] (PCP) Problem Qualifiers
[2017-07-13] MEDS ORDERED: AZTREONAM IV 2,000 MG in DEXTROSE 5% 100ML 100 ML IV SCH (04:00)
[2017-07-13 05:39] LABS: BASO % 0.2 %; BASO ABS # 0.02 K/uL (0-0.2); COMPLETE YES; EOS % 1.5 %; HEMATOCRIT 33.5 % (37-47); IG% 0.2 %; LYMPH % 19.2 %; LYMPH ABS # 1.69 K/uL (1.2-3.4); MEAN CELL VOLUME 86.8 fL (80-100); MEAN CORPUSCULAR HEMOGLOBIN 29.8 pg (25-34); MEAN CORPUSCULAR HGB CONC 34.3 g/dl (32-36); MEAN PLATELET VOLUME 9.6 fL (7.4-10.4); MONO % 12.1 %; NEUT % 66.8 %; PLATELET COUNT 234 K/uL (130-400); RED BLOOD COUNT 3.86 M/uL (4.2-5.4); WHITE BLOOD COUNT 8.79 K/uL (4.8-10.8)
[2017-07-13] MEDS: LEVOTHYROXINE 100 MCG TAB PO SCH (05:59)
[2017-07-13 06:04] LABS: BUN/CREATININE RATIO 39.1 (10-20); CALCIUM 9.5 mg/dl (8.5-10.1); CREATININE 0.81 mg/dl (0.60-1.20); POTASSIUM 3.5 mmol/L (3.5-5.1)
[2017-07-13 07:41] VITALS: BP 161/70; PULSE 77; TEMP 36.8; O2SAT 98
[2017-07-13] MEDS: LISINOPRIL/HCTZ 20/25MG TAB PO SCH (08:46)
[2017-07-13] MEDS: RESTASIS-ORDER AWAITING ACTION SCH ×4 (08:46→23:37)
[2017-07-13] MEDS: CHOLECALCIFEROL 1000 INTER.UNIT TAB PO SCH (08:46)
[2017-07-13] MEDS: CEROVITE ADV FORMULA TAB PO SCH (08:47)
[2017-07-13] MEDS: FERROUS SULFATE 325 MG TAB PO SCH ×2 (08:47→20:35)
[2017-07-13] MEDS: CALCIUM 600MG + VIT D 400 IU TAB PO SCH ×2 (08:47→20:33)
[2017-07-13] MEDS: CLOPIDOGREL BISULFATE 75 MG TAB PO SCH (08:47)
--- NOTE | 2017-07-13 09:09 | Orthopedic Consultation ---
Orthopedic Consultation Date of Consultation: Jul 13, 2017. Attending Physician: Ad Pavon M.D. Reason for Consultation: Right great toe ulcer, foot cellulitis History of Present Illness 86-year-old female with past medical history of chronic kidney disease, hypertension, hyperlipidemia, hypothyroidism, osteoporosis, Parkinson's, TIA, DVT, and H/O MRSA presents to the ER last evening with complaints of worsening erythema of her right foot that was noticed today. The patient is a resident of [facility] and the nursing staff had noticed bleeding through her sock off her right foot and found an open sore with erythema of the right foot. Cultures were obtained and she has been started on IV ABX. Amoxicillin allergy noted. The patient denies any history of trauma and that she usually ambulates using a wheelchair. Denies any fevers or chills, loss of sensation in her lower extremities. She however notes that her toenails were recently clipped about 10 days ago. She was recently seen by wound clinic for a decubitus ulcer in her right foot in early June. The patient also saw the wound clinic one year ago regarding an ulcer of the right 5th metatarsal that was treated with dressing changes and antibiotics. Denies numbness or tingling in the right lower extremity. Denies calf pain. Denies any chest pain, shortness of breath, palpitations Past Medical/Surgical History Medical Problems: (1) Cardiac pacemaker in situ (2) CKD (chronic kidney disease), stage III (3) DVT (deep venous thrombosis) (4) HTN (hypertension) (5) Hyperlipidemia (6) Hypothyroidism (7) Osteomyelitis (8) Osteoporosis (9) Parkinson's disease (10) Tachy-natali syndrome (11) TIA (transient ischemic attack) (12) H/O MRSA Surgical Problems: (1) H/O colonoscopy (2) S/P laparotomy (3) S/P tonsillectomy and adenoidectomy Family History Cancer Heart disease Social History Smoking Status: Never Smoker Marital Status: Occupation Status: retired Allergies Coded Allergies: Amoxicillin (Verified Allergy, Mild, RASH, 12/03/16) Home Medications Scheduled Acetaminophen Tab (Tylenol), 650 MG PO HS Atenolol (Tenormin), 75 MG PO BID Calcium/Vitamin D (Os-Niall 500 Plus D), 1 TAB PO BID Cholecalciferol (Vitamin D3), 1,000 UNITS PO DAILY Clopidogrel (Plavix), 75 MG PO DAILY Cyclosporine (Restasis Eye Drops), 1 DROP OP BID Ferrous Sulfate (Fe Tabs), 325 MG PO BID Fish Oil (Buchtel-3), 1 CAP PO BID Hctz/Lisinopril (Zestoretic 20MG/25MG), 1 TAB PO DAILY Levothyroxine Sodium (Levothyroxine Sodium), 100 MCG PO DAILY Multiple Vitamins W/ Minerals (Theragran-M), 1 TAB PO DAILY Sulfa/Trimethoprim (Bactrim Ds 800MG/160MG), 1 TAB PO BID [Vitamin B12 Inject], 1 ML IM [id number] Scheduled PRN Acetaminophen (Tylenol), 650 MG PO Q6H PRN for Pain or Fever Current Inpatient Medications Current Inpatient Medications Medications (Trade) Dose Ordered Sig/Fritz Route Start Time Stop Time Status Last Admin Dose Admin Acetaminophen (Tylenol Tab) 650 mg Q4H PRN PO 07/12/17 21:15 08/11/17 21:14 Al Hydrox/Mg Hydrox/Simethicone (Maalox Max Susp) 15 ml Q4H PRN PO 07/12/17 21:15 08/11/17 21:14 Polyethylene (Miralax Powder Packet) 17 gm DAILY PRN PO 07/12/17 21:15 08/11/17 21:14 Ondansetron HCl (Zofran Inj) 4 mg Q6H PRN IV 07/12/17 21:15 08/11/17 21:14 Atenolol (Tenormin Tab) 75 mg BID PO 07/13/17 08:00 08/12/17 08:59 Calcium/Vitamin D (Caltrate Plus Tab) 1 tab BID PO 07/13/17 08:00 08/12/17 08:59 Cholecalciferol (Vitamin D Tab) 1,000 inter.unit DAILY PO 07/13/17 08:00 08/12/17 08:59 Clopidogrel Bisulfate (plAVix TAB) 75 mg DAILY PO 07/13/17 08:00 08/12/17 08:59 Ferrous Sulfate (Feosol Tab) 325 mg BID PO 07/13/17 08:00 08/12/17 08:59 HCTZ/Lisinopril (Prinzide 20-25MG Tab) 1 tab DAILY PO 07/13/17 08:00 08/12/17 08:59 Levothyroxine Sodium (Synthroid Tab) 100 mcg DAILYBB PO 07/13/17 06:30 08/12/17 06:59 07/13/17 05:59 100 MCG Multivitamins/ Minerals (Multivitamin W/ Minerals Tab) 1 tab DAILY PO 07/13/17 08:00 08/12/17 08:59 Miscellaneous Information (Order Awaiting Action) 1 ea QS N/A 07/13/17 00:00 08/12/17 00:00 Vancomycin HCl 1000 mg/Sodium Chloride 270 ml @ 125 mls/hr Q16H IV 07/13/17 08:00 07/22/17 07:59 Vancomycin HCl (Consult) 1 ea UD PRN N/A 07/12/17 23:00 08/11/17 22:59 Imipenem/ Cilastatin Sodium 300 mg/Dextrose 106 ml @ 100 mls/hr Q6H IV 07/13/17 02:00 08/24/17 01:59 07/13/17 01:54 100 MLS/HR Imipenem/ Cilastatin Sodium (Consult) 1 ea UD PRN N/A 07/13/17 01:45 08/12/17 01:44 Review of Systems Constitutional: No fever, No chills, No sweats, No weight loss, No weakness, No fatigue, No problem reported Respiratory: No cough, No sputum, No wheezing, No shortness of breath, No dyspnea on exertion, No dyspnea at rest, No hemoptysis, No problem reported Cardiovascular: No chest pain, No orthopnea, No PND, No edema, No claudication , No palpitations, No problem reported Abdomen: No pain, No nausea, No vomiting, No diarrhea, No constipation, No GI bleeding, No problem reported Musculoskeletal: No joint pain, No muscle pain, No swelling, No calf pain, No problem reported Neurologic: + paralysis, No numbness/tingling Integumentary: + new/changing skin lesions (right great toe) Physical Exam Date Time Temp Pulse Resp B/P (MAP) Pulse Ox O2 Delivery O2 Flow Rate FiO2 07/13/17 07:41 36.8 77 18 161/70 (100) 98 Room Air 07/13/17 00:29 37.1 75 20 168/70 93 Room Air 07/12/17 23:01 85 18 170/95 96 Room Air 07/12/17 21:25 184/89 07/12/17 21:06 82 22 191/77 96 Room Air 07/12/17 19:01 36.4 90 18 149/56 95 Room Air General Appearance: no apparent distress Head: normocephalic Eyes: normal inspection ENT: normal ENT inspection, hearing grossly normal, + pertinent finding ( dental plates typically utilized, currently bedside ) Extremities/Musculoskelatal: no calf tenderness, normal capillary refill, no pedal edema, normal range of motion, + pertinent finding (Erythema of the right foot and toes appreciated. There is an ulceration with small amount of drainage noted at the distal aspect of the right great toe. Appears to be some mild eschar surrounding the toe. It does not appear to be open to the deep tissues. No exposed bone. She has active motion of the toe, foot, and ankle. There appears to be a healing scab at the base of the right 5th metatarsal without opening, drainage, or erythema. Consistent with past history of treated ulcer in this location. Non-tender otherwise. ) Neurologic/Psych: no motor/sensory deficits, alert, normal mood/affect, oriented x 3 (Overall, the patient is alert and oriented. Prompted regarding the date. Historian-mayorga, appears to have some discrepency, but fairly accurate otherwise. ) Skin: + pertinent finding (See MSK exam regarding skin findings of right foot/ great toe. IP joint of the right great toe non-tender. Unable to express any type of drainage from right great toe ulcer. ) Laboratory Results RADIOLOGY: RIGHT FOOT XRAYS: RIGHT TOE(S) MIN 2 VIEWS HISTORY: 86 years-old Female right great toe cellulitis and ulcer Right COMPARISON: None available TECHNIQUE: 3 views of the right great toe. FINDINGS: The bones are severely demineralized. Degenerative changes are seen throughout the interphalangeal joints appear moderate. Soft tissue ossifications are seen about the first digit. There is moderate soft tissue swelling of the first digit with mild cortical irregularity and lucency involving the volar aspect of the first distal phalanx seen best on the lateral view. IMPRESSION: Mild cortical irregularity and lucency involving the volar aspect of the first distal phalanx with associated moderate soft tissue swelling may reflect developing osteomyelitis in the appropriate clinical setting. Date/Time Source Procedure Growth Status 07/12/17 20:02 Blood Blood Culture Pending Received 8/28/17 19:40 Blood Blood Culture Pending Received 07/12/17 19:15 Abscess Swab Gram Stain - Final Resulted 07/12/17 19:15 Abscess Swab Wound Culture Pending Resulted Last 24 Hours Test 07/12/17 19:40 07/13/17 05:09 White Blood Count 9.84 K/uL 8.79 K/uL Red Blood Count 3.92 M/uL 3.86 M/uL Hemoglobin 11.1 g/dL 11.5 g/dL Hematocrit 33.7 % 33.5 % Mean Corpuscular Volume 86.0 fL 86.8 fL Mean Corpuscular Hemoglobin 28.3 pg 29.8 pg Mean Corpuscular Hemoglobin Concent 32.9 g/dl 34.3 g/dl Platelet Count 239 K/uL 234 K/uL Mean Platelet Volume 9.4 fL 9.6 fL Neutrophils (%) (Auto) 74.9 % 66.8 % Lymphocytes (%) (Auto) 12.8 % 19.2 % Monocytes (%) (Auto) 10.8 % 12.1 % Eosinophils (%) (Auto) 1.1 % 1.5 % Basophils (%) (Auto) 0.2 % 0.2 % Neutrophils # (Auto) 7.37 K/uL 5.87 K/uL Lymphocytes # (Auto) 1.26 K/uL 1.69 K/uL Monocytes # (Auto) 1.06 K/uL 1.06 K/uL Eosinophils # (Auto) 0.11 K/uL 0.13 K/uL Basophils # (Auto) 0.02 K/uL 0.02 K/uL RDW Standard Deviation 47.0 fL 47.3 fL RDW Coefficient of Variation 15.1 % 14.9 % Immature Granulocyte % (Auto) 0.2 % 0.2 % Immature Granulocyte # (Auto) 0.02 K/uL 0.02 K/uL Erythrocyte Sedimentation Rate 39 mm/hr Sodium Level 136 mmol/L 136 mmol/L Potassium Level 3.7 mmol/L 3.5 mmol/L Chloride Level 100 mmol/L 102 mmol/L Carbon Dioxide Level 29 mmol/L 29 mmol/L Anion Gap 7.0 mmol/L 5.0 mmol/L Blood Urea Nitrogen 40 mg/dl 32 mg/dl Creatinine 0.97 mg/dl 0.81 mg/dl Est Creatinine Clear Calc Drug Dose 36.0 ml/min 43.5 ml/min Estimated GFR () 61.3 76.2 Estimated GFR (Non- 52.9 65.8 BUN/Creatinine Ratio 41.4 39.1 Random Glucose 137 mg/dl 111 mg/dl Calcium Level 9.7 mg/dl 9.5 mg/dl Total Bilirubin 0.3 mg/dl Direct Bilirubin < 0.1 mg/dl Aspartate Amino Transf (AST/SGOT) 22 U/L Alanine Aminotransferase (ALT/SGPT) 22 U/L Alkaline Phosphatase 88 U/L C-Reactive Protein 1.31 mg/dl Total Protein 7.1 gm/dl Albumin 3.3 gm/dl Assessment & Plan ASSESSMENT: (1) Right great toe ulcer (2) Right foot cellulitis PLAN: After discussing today's findings with Maria M and speaking with Dr. Bae , I feel her right foot warrants further imaging with an MRI. I spoke with radiology and was advised a right "forefoot" MRI would be appropriate to evaluate the great toe and also any changes at her prior site of infection at the base of the 5th metatarsal, although currently asymptomatic. We will await cultures and continue to monitor accordingly. I will order the patient NPO except meds until further treatment decisions are made by Dr. Bae. Continue IV ABX. Elevate accordingly. Contact precautions in place. There is a small bandage covering the right great toe and I feel that is appropriate for the time being. Any further questions or concerns please notify Dr. Bae' s office at [facility] at [phone], thank you.
[2017-07-13] MEDS: ACETAMINOPHEN 325 MG TAB PO PRN (09:43)
[2017-07-13] MEDS: VANCOMYCIN INJ 1,000 MG in SODIUM CHLORIDE 0.9% 250ML 250 ML IV SCH ×2 (10:10→23:37)
[2017-07-13] MEDS ORDERED: HydrALAZINE HCL 20 MG/ML VIAL IV. PRN (11:00)
--- NOTE | 2017-07-13 13:39 | Wound Consultation: Inpatient ---
Wound Consultation Date of Consultation: Jul 13, 2017. Attending Physician: Ad Pavon M.D. Reason for Consultation: Ulceration right great toe History of Present Illness Patient was admitted to [facility] yesterday for further evaluation of redness and swelling to the right great toe and foot region. Patient states this just occurred over the past 2 days. Patient denies any fever chills or night sweats. Patient denies any significant pain or drainage from the area. Patient denies any trauma to this area. Patient has been a recent patient of the [facility] wound clinic recently discharged approximately 3 weeks ago. At that time the patient is being treated for an ulceration on the lateral aspect of her right foot. Patient states that has been giving her no difficulty. Patient denies any other new systemic complaints at this time. Family History Cancer Heart disease Social History Smoking Status: Never Smoker Marital Status: Occupation Status: retired Allergies Coded Allergies: Amoxicillin (Verified Allergy, Mild, RASH, 12/03/16) Home Medications Scheduled Acetaminophen Tab (Tylenol), 650 MG PO HS Atenolol (Tenormin), 75 MG PO BID Calcium/Vitamin D (Os-Niall 500 Plus D), 1 TAB PO BID Cholecalciferol (Vitamin D3), 1,000 UNITS PO DAILY Clopidogrel (Plavix), 75 MG PO DAILY Cyclosporine (Restasis Eye Drops), 1 DROP OP BID Ferrous Sulfate (Fe Tabs), 325 MG PO BID Fish Oil (Ivor-3), 1 CAP PO BID Hctz/Lisinopril (Zestoretic 20MG/25MG), 1 TAB PO DAILY Levothyroxine Sodium (Levothyroxine Sodium), 100 MCG PO DAILY Multiple Vitamins W/ Minerals (Theragran-M), 1 TAB PO DAILY Sulfa/Trimethoprim (Bactrim Ds 800MG/160MG), 1 TAB PO BID [Vitamin B12 Inject], 1 ML IM [id number] Scheduled PRN Acetaminophen (Tylenol), 650 MG PO Q6H PRN for Pain or Fever Inpatient Medications Current Inpatient Medications Medications (Trade) Dose Ordered Sig/Fritz Route Start Time Stop Time Status Last Admin Dose Admin Acetaminophen (Tylenol Tab) 650 mg Q4H PRN PO 07/12/17 21:15 08/11/17 21:14 07/13/17 09:43 650 MG Al Hydrox/Mg Hydrox/Simethicone (Maalox Max Susp) 15 ml Q4H PRN PO 07/12/17 21:15 08/11/17 21:14 Polyethylene (Miralax Powder Packet) 17 gm DAILY PRN PO 07/12/17 21:15 08/11/17 21:14 Ondansetron HCl (Zofran Inj) 4 mg Q6H PRN IV 07/12/17 21:15 08/11/17 21:14 Atenolol (Tenormin Tab) 75 mg BID PO 07/13/17 08:00 08/12/17 08:59 07/13/17 09:00 75 MG Calcium/Vitamin D (Caltrate Plus Tab) 1 tab BID PO 07/13/17 08:00 08/12/17 08:59 07/13/17 08:47 1 TAB Cholecalciferol (Vitamin D Tab) 1,000 inter.unit DAILY PO 07/13/17 08:00 08/12/17 08:59 07/13/17 08:46 1,000 INTER.UNIT Clopidogrel Bisulfate (plAVix TAB) 75 mg DAILY PO 07/13/17 08:00 08/12/17 08:59 07/13/17 08:47 75 MG Ferrous Sulfate (Feosol Tab) 325 mg BID PO 07/13/17 08:00 08/12/17 08:59 07/13/17 08:47 325 MG HCTZ/Lisinopril (Prinzide 20-25MG Tab) 1 tab DAILY PO 07/13/17 08:00 08/12/17 08:59 07/13/17 08:46 1 TAB Levothyroxine Sodium (Synthroid Tab) 100 mcg DAILYBB PO 07/13/17 06:30 08/12/17 06:59 07/13/17 05:59 100 MCG Multivitamins/ Minerals (Multivitamin W/ Minerals Tab) 1 tab DAILY PO 07/13/17 08:00 08/12/17 08:59 07/13/17 08:47 1 TAB Miscellaneous Information (Order Awaiting Action) 1 ea QS N/A 07/13/17 00:00 08/12/17 00:00 Vancomycin HCl 1000 mg/Sodium Chloride 270 ml @ 125 mls/hr Q16H IV 07/13/17 08:00 07/22/17 07:59 07/13/17 10:10 125 MLS/HR Vancomycin HCl (Consult) 1 ea UD PRN N/A 07/12/17 23:00 08/11/17 22:59 Imipenem/ Cilastatin Sodium 300 mg/Dextrose 106 ml @ 100 mls/hr Q6H IV 07/13/17 02:00 08/24/17 01:59 07/13/17 13:21 100 MLS/HR Imipenem/ Cilastatin Sodium (Consult) 1 ea UD PRN N/A 07/13/17 01:45 08/12/17 01:44 Hydralazine HCl (HydrALAZINE INJ) 10 mg Q8H PRN IV. 07/13/17 11:00 08/12/17 10:59 Physical Exam Date Time Temp Pulse Resp B/P (MAP) Pulse Ox O2 Delivery O2 Flow Rate FiO2 07/13/17 08:50 Room Air 07/13/17 07:41 36.8 77 18 161/70 (100) 98 Room Air 07/13/17 00:29 37.1 75 20 168/70 93 Room Air 07/12/17 23:01 85 18 170/95 96 Room Air 07/12/17 21:25 184/89 07/12/17 21:06 82 22 191/77 96 Room Air 07/12/17 19:01 36.4 90 18 149/56 95 Room Air General: The patient is lying in bed in no distress. Alert, cooperative and appropriate to all questions. HEENT: Pupils equal and reactive to light. Sclera clear, EOM intact. Neck: Supple, No JVD noted Chest: CTA in all pisano. No deformity Heart: RRR without murmurs, S3, S4, thrills, rubs or heaves Extremities: Positive swelling with a central area of blister formation to the distal right great toe. No open area of ulcerations currently noted. The size is 2 x 2 cm. There is marked erythema and edema of the digit as well as the distal portion of the left foot. Minimal tenderness to palpation is noted. No fluctuance is present. Pulses are present only by Doppler. ABIs on the right are noncompressible and 0.51 on the left. Range of motion is limited in the first digit. Good healing is noted to the lateral right foot where a prior ulceration was present. No open ulceration or drainage is noted. Neurological: Alert and oriented x3. No focal deficits. Skin: No rashes, papules, vesicles, excoriations Laboratory Results Last 24 Hours Test 07/12/17 19:40 07/13/17 05:09 White Blood Count 9.84 K/uL 8.79 K/uL Red Blood Count 3.92 M/uL 3.86 M/uL Hemoglobin 11.1 g/dL 11.5 g/dL Hematocrit 33.7 % 33.5 % Mean Corpuscular Volume 86.0 fL 86.8 fL Mean Corpuscular Hemoglobin 28.3 pg 29.8 pg Mean Corpuscular Hemoglobin Concent 32.9 g/dl 34.3 g/dl Platelet Count 239 K/uL 234 K/uL Mean Platelet Volume 9.4 fL 9.6 fL Neutrophils (%) (Auto) 74.9 % 66.8 % Lymphocytes (%) (Auto) 12.8 % 19.2 % Monocytes (%) (Auto) 10.8 % 12.1 % Eosinophils (%) (Auto) 1.1 % 1.5 % Basophils (%) (Auto) 0.2 % 0.2 % Neutrophils # (Auto) 7.37 K/uL 5.87 K/uL Lymphocytes # (Auto) 1.26 K/uL 1.69 K/uL Monocytes # (Auto) 1.06 K/uL 1.06 K/uL Eosinophils # (Auto) 0.11 K/uL 0.13 K/uL Basophils # (Auto) 0.02 K/uL 0.02 K/uL RDW Standard Deviation 47.0 fL 47.3 fL RDW Coefficient of Variation 15.1 % 14.9 % Immature Granulocyte % (Auto) 0.2 % 0.2 % Immature Granulocyte # (Auto) 0.02 K/uL 0.02 K/uL Erythrocyte Sedimentation Rate 39 mm/hr Sodium Level 136 mmol/L 136 mmol/L Potassium Level 3.7 mmol/L 3.5 mmol/L Chloride Level 100 mmol/L 102 mmol/L Carbon Dioxide Level 29 mmol/L 29 mmol/L Anion Gap 7.0 mmol/L 5.0 mmol/L Blood Urea Nitrogen 40 mg/dl 32 mg/dl Creatinine 0.97 mg/dl 0.81 mg/dl Est Creatinine Clear Calc Drug Dose 36.0 ml/min 43.5 ml/min Estimated GFR () 61.3 76.2 Estimated GFR (Non- 52.9 65.8 BUN/Creatinine Ratio 41.4 39.1 Random Glucose 137 mg/dl 111 mg/dl Calcium Level 9.7 mg/dl 9.5 mg/dl Total Bilirubin 0.3 mg/dl Direct Bilirubin < 0.1 mg/dl Aspartate Amino Transf (AST/SGOT) 22 U/L Alanine Aminotransferase (ALT/SGPT) 22 U/L Alkaline Phosphatase 88 U/L C-Reactive Protein 1.31 mg/dl Total Protein 7.1 gm/dl Albumin 3.3 gm/dl Assessment & Plan Assessment: Abscess formation right rate toe Cellulitis right foot\ Rule out osteomyelitis of the right great toe Plan: At this time no debridement is indicated. The site will be dressed with plain Aquacel and gauze. An MRI was ordered earlier by orthopedics to rule out underlying osteomyelitis. It is my recommendation as well as this time to obtain an arterial ultrasounds to rule out the existence of peripheral vascular disease prior to any surgical intervention. I will continue to monitor and assist with the patient's care during hospitalization.
--- NOTE | 2017-07-13 16:52 | DIAGNOSTIC IMAGING REPORT ---
RIGHT LOWER EXTREMITY ARTERIAL DOPPLER ULTRASOUND CLINICAL HISTORY: Vascular insufficiency. Osteomyelitis. COMPARISON STUDY: No previous studies for comparison. FINDINGS: The right ankle to brachial index measured 0.46 when using posterior tibial artery. Dorsalis pedis could not be detected. There is moderate atherosclerotic plaque within the right lower extremity. No elevated velocities were identified. There is triphasic flow within the right common femoral artery with biphasic flow within the superficial femoral artery. There was monophasic flow within the popliteal, posterior tibial, peroneal and anterior tibial arteries. There is suspected dampened monophasic flow within the dorsalis pedis. IMPRESSION: 1. Significantly diminished right ankle to brachial index of 0.46. 2. Moderate atherosclerotic plaque within the right lower extremity. No sonographic evidence of a hemodynamically significant stenosis. 3. Monophasic flow within the right popliteal, posterior tibial, peroneal, anterior tibial and dorsalis pedis vessels. Electronically signed by: Sebastián Hernandez M.D. 07/13/2017 4:51 PM Dictated Date/Time: 07/13/2017 4:48 PM
[2017-07-13 20:28] VITALS: BP 153/68; PULSE 65; TEMP 36.7; O2SAT 93
--- NOTE | 2017-07-13 20:44 | Family Medicine Progress Note ---
Progress Note Date of Service Jul 13, 2017. Subjective Pt evaluation today including: conversation w/ patient, physical exam, chart review, lab review, review of studies Pain: No pain reported this morning Voiding: no voiding problems, no incontinence Patient resting comfortably in bed this morning with no acute events overnight Constitutional: No fever, No chills, No sweats, No fatigue Respiratory: No cough, No sputum, No shortness of breath Cardiovascular: No chest pain Abdomen: No pain, No nausea, No vomiting Musculoskeletal: + problem reported (ulcer over right 1st toe) Female : No dysuria Neurologic: No weakness Medications Current Inpatient Medications Medications (Trade) Dose Ordered Sig/Fritz Route Start Time Stop Time Status Last Admin Dose Admin Acetaminophen (Tylenol Tab) 650 mg Q4H PRN PO 07/12/17 21:15 08/11/17 21:14 07/13/17 09:43 650 MG Al Hydrox/Mg Hydrox/Simethicone (Maalox Max Susp) 15 ml Q4H PRN PO 07/12/17 21:15 08/11/17 21:14 Polyethylene (Miralax Powder Packet) 17 gm DAILY PRN PO 07/12/17 21:15 08/11/17 21:14 Ondansetron HCl (Zofran Inj) 4 mg Q6H PRN IV 07/12/17 21:15 08/11/17 21:14 Atenolol (Tenormin Tab) 75 mg BID PO 07/13/17 08:00 08/12/17 08:59 07/13/17 20:34 75 MG Calcium/Vitamin D (Caltrate Plus Tab) 1 tab BID PO 07/13/17 08:00 08/12/17 08:59 07/13/17 20:33 1 TAB Cholecalciferol (Vitamin D Tab) 1,000 inter.unit DAILY PO 07/13/17 08:00 08/12/17 08:59 07/13/17 08:46 1,000 INTER.UNIT Clopidogrel Bisulfate (plAVix TAB) 75 mg DAILY PO 07/13/17 08:00 08/12/17 08:59 07/13/17 08:47 75 MG Ferrous Sulfate (Feosol Tab) 325 mg BID PO 07/13/17 08:00 08/12/17 08:59 07/13/17 20:35 325 MG HCTZ/Lisinopril (Prinzide 20-25MG Tab) 1 tab DAILY PO 07/13/17 08:00 08/12/17 08:59 07/13/17 08:46 1 TAB Levothyroxine Sodium (Synthroid Tab) 100 mcg DAILYBB PO 07/13/17 06:30 08/12/17 06:59 07/13/17 05:59 100 MCG Multivitamins/ Minerals (Multivitamin W/ Minerals Tab) 1 tab DAILY PO 07/13/17 08:00 08/12/17 08:59 07/13/17 08:47 1 TAB Miscellaneous Information (Order Awaiting Action) 1 ea QS N/A 07/13/17 00:00 08/12/17 00:00 Vancomycin HCl 1000 mg/Sodium Chloride 270 ml @ 125 mls/hr Q16H IV 07/13/17 08:00 07/22/17 07:59 07/13/17 10:10 125 MLS/HR Vancomycin HCl (Consult) 1 ea UD PRN N/A 07/12/17 23:00 08/11/17 22:59 Imipenem/ Cilastatin Sodium 300 mg/Dextrose 106 ml @ 100 mls/hr Q6H IV 07/13/17 02:00 08/24/17 01:59 07/13/17 20:35 100 MLS/HR Imipenem/ Cilastatin Sodium (Consult) 1 ea UD PRN N/A 07/13/17 01:45 08/12/17 01:44 Hydralazine HCl (HydrALAZINE INJ) 10 mg Q8H PRN IV. 07/13/17 11:00 08/12/17 10:59 Objective Vital Signs Date Time Temp Pulse Resp B/P (MAP) Pulse Ox O2 Delivery O2 Flow Rate FiO2 07/13/17 20:28 36.7 65 16 153/68 (96) 93 Room Air 07/13/17 15:33 Room Air 07/13/17 08:50 Room Air 07/13/17 07:41 36.8 77 18 161/70 (100) 98 Room Air 07/13/17 00:29 37.1 75 20 168/70 93 Room Air 07/12/17 23:01 85 18 170/95 96 Room Air 07/12/17 21:25 184/89 07/12/17 21:06 82 22 191/77 96 Room Air Physical Exam General Appearance: WD/WN, no apparent distress Eyes: normal inspection, sclerae normal Respiratory/Chest: chest non-tender, lungs clear, normal breath sounds Cardiovascular: regular rate, rhythm, no edema, no gallop Abdomen: normal bowel sounds, non tender, soft Extremities: non-tender, normal inspection, no calf tenderness, + pertinent finding (Ulcer with granulation tissue at distal aspecect of right 1st toe with surrounding erythema) Neurologic/Psychiatric: alert Laboratory Results Results Past 24 Hours Test 07/13/17 05:09 Range/Units White Blood Count 8.79 4.8-10.8 K/uL Red Blood Count 3.86 4.2-5.4 M/uL Hemoglobin 11.5 12.0-16.0 g/dL Hematocrit 33.5 37-47 % Mean Corpuscular Volume 86.8 80-100 fL Mean Corpuscular Hemoglobin 29.8 25-34 pg Mean Corpuscular Hemoglobin Concent 34.3 32-36 g/dl Platelet Count 234 130-400 K/uL Mean Platelet Volume 9.6 7.4-10.4 fL Neutrophils (%) (Auto) 66.8 % Lymphocytes (%) (Auto) 19.2 % Monocytes (%) (Auto) 12.1 % Eosinophils (%) (Auto) 1.5 % Basophils (%) (Auto) 0.2 % Neutrophils # (Auto) 5.87 1.4-6.5 K/uL Lymphocytes # (Auto) 1.69 1.2-3.4 K/uL Monocytes # (Auto) 1.06 0.11-0.59 K/uL Eosinophils # (Auto) 0.13 0-0.5 K/uL Basophils # (Auto) 0.02 0-0.2 K/uL RDW Standard Deviation 47.3 36.4-46.3 fL RDW Coefficient of Variation 14.9 11.5-14.5 % Immature Granulocyte % (Auto) 0.2 % Immature Granulocyte # (Auto) 0.02 0.00-0.02 K/uL Sodium Level 136 136-145 mmol/L Potassium Level 3.5 3.5-5.1 mmol/L Chloride Level 102 98-107 mmol/L Carbon Dioxide Level 29 21-32 mmol/L Anion Gap 5.0 3-11 mmol/L Blood Urea Nitrogen 32 7-18 mg/dl Creatinine 0.81 0.60-1.20 mg/dl Est Creatinine Clear Calc Drug Dose 43.5 ml/min Estimated GFR () 76.2 Estimated GFR (Non- 65.8 BUN/Creatinine Ratio 39.1 10-20 Random Glucose 111 70-99 mg/dl Calcium Level 9.5 8.5-10.1 mg/dl Assessment and Plan Patient is an 86 year old female with a past medical history of chronic kidney disease, hypertension, hyperlipidemia, hypothyroidism, osteoporosis, Parkinson's , TIA, and DVT that presents with cellulitis and possible osteomyelitis of the right foot 1) Cellulitis with possible osteomyelitis - Toe X-Ray 07/13: Mild cortical irregularity and lucency involving the volar aspect of the first distal phalanx with associated moderate soft tissue swelling may reflect developing osteomyelitis - Wound Culture Pending - Blood Cultures pending - Vancomycin and Imipenem - Wound Care Consult: Will not debride the wound at this time. Applied dressings with Aquacel and Gauze. Ordered Arterial Doppler to assess vascular supply - Orthopaedic Surgery Consult: Order MRI of the foot and kept the patient NPO awaiting possible surgery - Elevated CRP and ESR - Tylenol for pain 2) History of Afib and Sick Sinus Syndrome - Coumadin discontinued in May 2017 by Cardiology because pacemaker showed no evidence of Afib - Dual Chamber Pacemaker functioning well - Follow up routinely with cardiology as outpatient for pacemaker interrogation 3) History of TIA/ HTN - Continue Plavix, Zestoretic, Atenolol 4) Hypothyroidism - Continue Synthroid 5) Osteoporosis - Continue vitamin D 6) DVT prophylaxis: - SCDs - If no surgery today start Lovenox tomorrow based on Creatinine clearance 7) Code Status - DNR Resident Tracking Resident Involvement: Resident Care Provided Care Provided: Adult Hospital Medicine Reviewed: Pt Seen/Exam by Me History Resident Physician Supervision Note: I interviewed and examined the patient. Discussed with Dr. Gao and agree with findings and plan as documented in the note. Any exceptions or clarifications are listed here: Patient has no complaints. She denies pain, denies chest pain, shortness breath , headache, abdominal pain. Review of her outpatient chart shows that she is followed routinely by cardiology since her pacemaker insertion and has atrial fibrillation, however she is not on anticoagulation as she has not had any documented A. fib since last year. She was only on Coumadin for 6 months this year due to an extensive left upper extremity DVT after pacemaker placement. Vitals reviewed No acute distress, alert awake but not oriented to time or place Regular rate and rhythm, no murmurs gallops rubs Lungs clear to auscultation bilaterally, breathing unlabored, no wheezes crackles or rhonchi Positive bowel sounds soft nontender nondistended Extremities-barely palpable dorsalis pedis pulse in the feet bilaterally, right great toe with blister with scab and erythema spreading over entire dorsum of the foot 86-year-old female with history of paroxysmal atrial fibrillation, pacemaker in situ, history of DVT, hypertension, hypothyroidism, TIA, and recurrent foot wound on the right, here with new wound of the right great toe with cellulitis of the toe and foot and concern for osteomyelitis. Barely palpable pulses, suspect peripheral arterial disease. -Follow up on arterial Doppler in May need vascular consultation -Appreciate orthopedic consultation, continue IV antibiotics but may need surgical amputation or debridement -Follow wound cultures and continue IV imipenem and vancomycin -Follow up MRI of the foot Documented By: Minda Rubio
[2017-07-14 00:25] VITALS: BP 149/69; PULSE 82; TEMP 36.3; O2SAT 92
[2017-07-14] MEDS: IMIPENEM/CILASTATIN IV 300 MG in DEXTROSE 5% 100ML 100 ML IV SCH ×4 (01:52→20:13)
[2017-07-14] MEDS: LEVOTHYROXINE 100 MCG TAB PO SCH (05:46)
[2017-07-14 06:10] LABS: BASO % 0.3 %; BASO ABS # 0.02 K/uL (0-0.2); COMPLETE YES; EOS % 1.6 %; HEMATOCRIT 30.4 % (37-47); IG% 0.4 %; LYMPH % 20.8 %; LYMPH ABS # 1.58 K/uL (1.2-3.4); MEAN CELL VOLUME 84.9 fL (80-100); MEAN CORPUSCULAR HEMOGLOBIN 28.8 pg (25-34); MEAN CORPUSCULAR HGB CONC 33.9 g/dl (32-36); MEAN PLATELET VOLUME 9.1 fL (7.4-10.4); MONO % 13.3 %; NEUT % 63.6 %; PLATELET COUNT 217 K/uL (130-400); RED BLOOD COUNT 3.58 M/uL (4.2-5.4); WHITE BLOOD COUNT 7.61 K/uL (4.8-10.8)
[2017-07-14 06:50] LABS: BUN/CREATININE RATIO 30.3 (10-20); CALCIUM 9.6 mg/dl (8.5-10.1); CREATININE 0.75 mg/dl (0.60-1.20); MAGNESIUM 1.6 mg/dl (1.8-2.4); POTASSIUM 3.6 mmol/L (3.5-5.1)
[2017-07-14] MEDS: RESTASIS-ORDER AWAITING ACTION SCH ×3 (07:52→23:35)
[2017-07-14] MEDS: LISINOPRIL/HCTZ 20/25MG TAB PO SCH (07:52)
[2017-07-14] MEDS: FERROUS SULFATE 325 MG TAB PO SCH ×2 (07:52→20:14)
[2017-07-14] MEDS: CEROVITE ADV FORMULA TAB PO SCH (07:52)
[2017-07-14] MEDS: CALCIUM 600MG + VIT D 400 IU TAB PO SCH ×2 (07:52→20:13)
[2017-07-14] MEDS: CHOLECALCIFEROL 1000 INTER.UNIT TAB PO SCH (07:52)
[2017-07-14] MEDS: CLOPIDOGREL BISULFATE 75 MG TAB PO SCH (07:52)
[2017-07-14] MEDS: ACETAMINOPHEN 325 MG TAB PO PRN (07:55)
[2017-07-14 08:09] VITALS: BP 161/78; PULSE 87; TEMP 36.9; O2SAT 94
--- NOTE | 2017-07-14 08:11 | Clinical Documentation Query ---
[facility] : CLINICAL DOCUMENTATION QUERY Patient is an 86 year old female admitted for cellulitis and possible osteomyelitis associated with right great toe ulceration. As appropriate, please explicitly state the type and staging of the ulcer as able. In your clinical opinion is this patient being managed for: ( ) Pressure ulcer of right great toe, stage ___ ( ) Chronic skin ulcer of right great toe ( ) PVD ulcer of right great toe ( ) Venous stasis ulcer of great right toe ( ) Ischemic ulcer of right great toe ( ) Not Agree ( ) Other explanation of clinical findings (Please Explain) ( ) Unable to determine (Please Define) ( ) Need to Discuss The medical record reflects the following clinical findings, treatment, and risk factors. Clinical Indicators: As above Treatment: Wound consultation Risk Factors: Age, immobility Please clarify and document your clinical opinion in the progress notes and discharge summary. Terms such as "probable", "suspected", "likely", "questionable", "possible", or "still to be ruled out" are acceptable. IF IN AGREEMENT, YOU MUST DOCUMENT ABOVE DIAGNOSTIC STATEMENT IN DAILY PROGRESS NOTES AND DISCHARGE SUMMARY. This document is not part of the patient's record. Thank You, Rodney Irving, RN [phone]
[2017-07-14] MEDS ORDERED: MAGNESIUM SULFATE 1GM / D5W 1 GM BAG IV STA (14:04)
[2017-07-14] MEDS ORDERED: POTASSIUM CHLORIDE 10 MEQ TABCR PO STA (14:04)
[2017-07-14] MEDS ORDERED: ENOXAPARIN 40 MG/0.4 ML SYR SQ ONE (14:15)
--- NOTE | 2017-07-14 14:21 | DIAGNOSTIC IMAGING REPORT ---
RIGHT FOREFOOT MRI HISTORY: Abnormal right first toe x-ray. Right great toe ulcer/probably osteomyelitis Right TECHNIQUE: Multiplanar multisequence MRI of the right forefoot was performed without the use of intravenous contrast. COMPARISON STUDY: Right first toe 07/12/2017. FINDINGS: Soft tissue edema along the dorsal aspect of the distal first toe. There is also increased T2 signal within the distal tuft of the first toe consistent with marrow edema. Tiny focus of T1 hypointense signal within the medial aspect of the distal tuft of the first toe best seen on axial image 10 of . Therefore, these findings are concerning for a small focus of osteomyelitis. No soft tissue fluid collections to suggest an abscess. No fracture or dislocation within the forefoot. 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 IMPRESSION: Abnormal T1 and T2 signal within the distal tuft of the first toe as described above. This is suboptimally assessed due to the lack of contrast but is concerning for a small focus of osteomyelitis. Electronically signed by: Alli Zamudio M.D. 07/14/2017 2:19 PM Dictated Date/Time: 07/14/2017 2:12 PM
[2017-07-14] MEDS: MAGNESIUM SULFATE 1GM / D5W 1 GM in PREMIXED IN D5W 100 ML IV SCH ×2 (15:25→16:49)
[2017-07-14] MEDS ORDERED: VANCOMYCIN TROUGH SCH (15:30)
[2017-07-14 15:36] LABS: PARTIAL THROMBOPLASTIN RATIO 1.1
[2017-07-14 15:47] VITALS: BP 159/75; PULSE 85; TEMP 36.7; O2SAT 96
--- NOTE | 2017-07-14 15:56 | Family Medicine Progress Note ---
Progress Note Date of Service Jul 14, 2017. Subjective Pt evaluation today including: conversation w/ patient, physical exam, chart review, lab review, review of studies Voiding: no voiding problems, no incontinence Patient resting comfortably in bed this morning with no acute complaints. States that the discomfort in her toe is now a 7/10 but she did receive tylenol this morning and does not request any further pain medications at this time. Constitutional: No fever, No chills, No sweats, No fatigue Respiratory: No cough, No sputum, No shortness of breath Cardiovascular: No chest pain, No palpitations Abdomen: No pain, No nausea, No vomiting Musculoskeletal: + problem reported (Right 1st toe pain 7/10) Medications Current Inpatient Medications Medications (Trade) Dose Ordered Sig/Fritz Route Start Time Stop Time Status Last Admin Dose Admin Acetaminophen (Tylenol Tab) 650 mg Q4H PRN PO 07/12/17 21:15 08/11/17 21:14 07/14/17 07:55 650 MG Al Hydrox/Mg Hydrox/Simethicone (Maalox Max Susp) 15 ml Q4H PRN PO 07/12/17 21:15 08/11/17 21:14 Polyethylene (Miralax Powder Packet) 17 gm DAILY PRN PO 07/12/17 21:15 08/11/17 21:14 Ondansetron HCl (Zofran Inj) 4 mg Q6H PRN IV 07/12/17 21:15 08/11/17 21:14 Atenolol (Tenormin Tab) 75 mg BID PO 07/13/17 08:00 08/12/17 08:59 07/14/17 07:52 75 MG Calcium/Vitamin D (Caltrate Plus Tab) 1 tab BID PO 07/13/17 08:00 08/12/17 08:59 07/14/17 07:52 1 TAB Cholecalciferol (Vitamin D Tab) 1,000 inter.unit DAILY PO 07/13/17 08:00 08/12/17 08:59 07/14/17 07:52 1,000 INTER.UNIT Clopidogrel Bisulfate (plAVix TAB) 75 mg DAILY PO 07/13/17 08:00 08/12/17 08:59 07/14/17 07:52 75 MG Ferrous Sulfate (Feosol Tab) 325 mg BID PO 07/13/17 08:00 08/12/17 08:59 07/14/17 07:52 325 MG HCTZ/Lisinopril (Prinzide 20-25MG Tab) 1 tab DAILY PO 07/13/17 08:00 08/12/17 08:59 07/14/17 07:52 1 TAB Levothyroxine Sodium (Synthroid Tab) 100 mcg DAILYBB PO 07/13/17 06:30 08/12/17 06:59 07/14/17 05:46 100 MCG Multivitamins/ Minerals (Multivitamin W/ Minerals Tab) 1 tab DAILY PO 07/13/17 08:00 08/12/17 08:59 07/14/17 07:52 1 TAB Miscellaneous Information (Order Awaiting Action) 1 ea QS N/A 07/13/17 00:00 08/12/17 00:00 Vancomycin HCl (Consult) 1 ea UD PRN N/A 07/12/17 23:00 08/11/17 22:59 Imipenem/ Cilastatin Sodium 300 mg/Dextrose 106 ml @ 100 mls/hr Q6H IV 07/13/17 02:00 08/24/17 01:59 07/14/17 14:32 100 MLS/HR Imipenem/ Cilastatin Sodium (Consult) 1 ea UD PRN N/A 07/13/17 01:45 08/12/17 01:44 Hydralazine HCl (HydrALAZINE INJ) 10 mg Q8H PRN IV. 07/13/17 11:00 08/12/17 10:59 Enoxaparin Sodium (Lovenox Inj) 40 mg QAM SQ 07/15/17 08:00 08/14/17 07:59 UNV Magnesium Sulfate 1 gm/Prmx 100 ml @ 100 mls/hr Q1H IV 07/14/17 14:30 07/14/17 16:29 07/14/17 15:25 100 MLS/HR Objective Vital Signs Date Time Temp Pulse Resp B/P (MAP) Pulse Ox O2 Delivery O2 Flow Rate FiO2 07/14/17 08:09 36.9 87 18 161/78 (105) 94 Room Air 07/14/17 07:50 Room Air 07/14/17 00:25 36.3 82 18 149/69 (95) 92 Room Air 07/14/17 00:00 Room Air 07/13/17 20:28 36.7 65 16 153/68 (96) 93 Room Air Physical Exam General Appearance: WD/WN, no apparent distress Eyes: normal inspection, sclerae normal Respiratory/Chest: chest non-tender, lungs clear, normal breath sounds Cardiovascular: regular rate, rhythm, no edema, no gallop Abdomen: normal bowel sounds, non tender, soft Extremities: normal inspection, no calf tenderness, + pertinent finding ( Erythema surrounding ulcer at distal aspect of right 1st toe appears to have improve. C/D/I. No bleeding or discharge. Full ROM of toe.) Neurologic/Psychiatric: alert, + pertinent finding (Some element of dementia as have to repeat questions for patient and difficulty remembering who has been in to see her today) Laboratory Results Results Past 24 Hours Test 07/14/17 05:50 07/14/17 15:12 Range/Units White Blood Count 7.61 4.8-10.8 K/uL Red Blood Count 3.58 4.2-5.4 M/uL Hemoglobin 10.3 12.0-16.0 g/dL Hematocrit 30.4 37-47 % Mean Corpuscular Volume 84.9 80-100 fL Mean Corpuscular Hemoglobin 28.8 25-34 pg Mean Corpuscular Hemoglobin Concent 33.9 32-36 g/dl Platelet Count 217 130-400 K/uL Mean Platelet Volume 9.1 7.4-10.4 fL Neutrophils (%) (Auto) 63.6 % Lymphocytes (%) (Auto) 20.8 % Monocytes (%) (Auto) 13.3 % Eosinophils (%) (Auto) 1.6 % Basophils (%) (Auto) 0.3 % Neutrophils # (Auto) 4.85 1.4-6.5 K/uL Lymphocytes # (Auto) 1.58 1.2-3.4 K/uL Monocytes # (Auto) 1.01 0.11-0.59 K/uL Eosinophils # (Auto) 0.12 0-0.5 K/uL Basophils # (Auto) 0.02 0-0.2 K/uL RDW Standard Deviation 45.8 36.4-46.3 fL RDW Coefficient of Variation 14.6 11.5-14.5 % Immature Granulocyte % (Auto) 0.4 % Immature Granulocyte # (Auto) 0.03 0.00-0.02 K/uL Sodium Level 138 136-145 mmol/L Potassium Level 3.6 3.5-5.1 mmol/L Chloride Level 104 98-107 mmol/L Carbon Dioxide Level 26 21-32 mmol/L Anion Gap 8.0 3-11 mmol/L Blood Urea Nitrogen 23 7-18 mg/dl Creatinine 0.75 0.60-1.20 mg/dl Est Creatinine Clear Calc Drug Dose 47.0 ml/min Estimated GFR () 83.7 Estimated GFR (Non- 72.2 BUN/Creatinine Ratio 30.3 10-20 Random Glucose 102 70-99 mg/dl Calcium Level 9.6 8.5-10.1 mg/dl Magnesium Level 1.6 1.8-2.4 mg/dl Prothrombin Time 11.0 9.0-12.0 SECONDS Prothromb Time International Ratio 1.0 0.9-1.1 Activated Partial Thromboplast Time 29.4 21.0-31.0 SECONDS Partial Thromboplastin Ratio 1.1 Assessment and Plan Patient is an 86 year old female with a past medical history of chronic kidney disease, hypertension, hyperlipidemia, hypothyroidism, osteoporosis, Parkinson's , TIA, and DVT that presents with cellulitis and possible osteomyelitis of the right foot 1) Cellulitis with possible osteomyelitis - Wound improving on IV antibiotics confirmed, proper coverage confirmed with culture, still awaiting Ortho decision on possible surgical management - Toe X-Ray 07/13: Mild cortical irregularity and lucency involving the volar aspect of the first distal phalanx with associated moderate soft tissue swelling may reflect developing osteomyelitis - MRI 07/14: Concerning for small focus of osteomyelitis at tuft of first toe - Wound Culture - Pansensitive Pseudomonas --> Discontinue Vancomycin and Continue Imipenem - Consult ID for further antibiotic input - Blood Cultures pending - Wound Care Consult: Patient being managed by Dr. Li, Will not debride the wound at this time. Applied dressings with Aquacel and Gauze. Ordered Arterial Doppler to assess vascular supply - Orthopaedic Surgery Consult: Will discuss case with Dr. Lopez and decide whether surgical care vs IV Antibiotic management is appropriate - Elevated CRP and ESR - Tylenol for pain 2) Peripheral Artery Disease - Severe disease - Lower extremity arterial doppler US shows significantly decreased BJ bilaterally. 0.49 in right ankle and 0.51 in left ankle - Vascular Consult: Dr. Lopez at this time would not recommend vascular intervention at this time and continue with antibiotic therapy - Continue to monitor wound and if not improving with IV antibiotics revisit revascularization later 3) History of Afib and Sick Sinus Syndrome - Ordered EKG to assess heart rate - 40mEq of PO Potassium Citrate to ensure stable potassium levels (K+ 3.6) - Coumadin discontinued in May 2017 by Cardiology because pacemaker showed no evidence of Afib - Dual Chamber Pacemaker functioning well - Follow up routinely with cardiology as outpatient for pacemaker interrogation 4) Hypomagnesemia (1.6) - 2g of Magnesium Citrate IV - Recheck Mg tomorrow morning 5) History of TIA/ HTN - Continue Plavix, Zestoretic, Atenolol 6) Hypothyroidism - Continue Synthroid 7) Osteoporosis - Continue vitamin D 8) DVT prophylaxis: - SCDs - Lovenox 40mg daily 9) Code Status - DNR Reviewed: Pt Seen/Exam by Me History Resident Physician Supervision Note: I interviewed and examined the patient. Discussed with Dr. Gao and agree with findings and plan as documented in the note. Any exceptions or clarifications are listed here: Patient has no complaints. I discussed the case with interventional cardiology today who recommended conservative management of her peripheral arterial disease seen on arterial Dopplers for now, given that she is nonambulatory. However, if wound is not healing properly or infection not resolving, then could revisit revascularization. Vitals reviewed No acute distress, alert awake but not oriented to time or place Regular rate and rhythm, no murmurs gallops rubs Lungs clear to auscultation bilaterally, breathing unlabored, no wheezes crackles or rhonchi Positive bowel sounds soft nontender nondistended Extremities-barely palpable dorsalis pedis pulse in the feet bilaterally, right great toe with blister with scab and much improved erythema now only around right toe and dorsum of forefoot 86-year-old female with history of paroxysmal atrial fibrillation, pacemaker in situ, history of DVT, hypertension, hypothyroidism, TIA, and recurrent foot wound on the right, here with new wound of the right great toe with cellulitis of the toe and foot and possible small focus of osteomyelitis of the distal phalanx. Barely palpable pulses, with abnormal BJ and arterial Doppler-with moderate bilateral lower extremity peripheral arterial disease. -Appreciate orthopedic consultation, continue IV antibiotics but may need surgical amputation or debridement-orthopedics will discuss case with cardiology -Narrow down antibiotics to imipenem alone for pansensitive pseudomonas-consult infectious disease as she may need prolonged course of IV antibiotics Documented By: Minda Rubio
--- NOTE | 2017-07-14 17:19 | Progress Note ---
Progress Note Date of Service Jul 14, 2017. Progress Note Mrs. Victor's daughters with her. She does not ambulate and is essentially bed to chair. No changes are noted. She is afebrile her vital signs are stable. Her white count is normal. She is mildly anemic. Her PRP is noted. Her be [place] mildly elevated. The MRI is reviewed which shows some mild abnormal signal in the tip of the distal phalanx on both T1 and T2 images. There is no bone destruction nor is her a knee abscess present. On examination the swelling and erythema on the foot have improved. Swelling is trace. She has a black area at the tip of the toe without an open wound. There is a whitish area medial to that. This is the large toe of the right foot. There is no purulent drainage and tenderness seems to be improved I do not palpate any abscess. The big toe is moderately erythematous and mildly swollen. She can wiggle her toes and ankle. Impression is right great toe ulceration #2 impaired circulation #3 diabetes and multiple medical problems. Plan findings discussed with patient and daughter. The findings on x-ray and MRI could suggest osteomyelitis but are not definitive. We discussed various options. I think at this time is important to control the cellulitis with IV antibiotics. This can be converted to orals when appropriate. We'll need to coordinate care with Dr. Lopez in terms of what her circulation status and options are. Think it would be important to improve her circulatory status if it were possible whether or not she had surgery. If revascularization is an option we can see how she does after that is done. Currently I do not have any immediate plans for surgical intervention. With her poor circulatory status and amputation have difficulty healing. Continued decubitus precautions and antibiotics. We'll continue to follow for now. Will discuss with Dr. Lopez.
--- NOTE | 2017-07-14 20:20 | Cardiology Consultation ---
Cardiology Consultation Date of Consultation: Jul 14, 2017. Requesting Physician: Catalino Attending Physician: Savanah Reason for Consultation: Lower extremity peripheral artery disease History of Present Illness Mrs. Victor is a pleasant 86-year-old woman, half-way facility resident due to Parkinson's disease with a history of hypertension, stage 3 chronic kidney disease, paroxysmal atrial fibrillation and sick sinus syndrome status post Medtronic dual-chamber pacemaker prior upper extremity DVT, anemia currently admitted with right lower extremity 1st digit wound cellulitis/ osteomyelitis. Patient is largely bed bound due to her Parkinson's disease. She does not ambulate and gets around primarily with the aid of a wheelchair. She has had recurrent neuropathic right lower extremity ulcerations for which she has been followed by the wound clinic. Wounds have previously healed with standard wound care care. Current admission after was noted her significant have new right lower extremity erythema with bleeding distal ulceration. No systemic symptoms. Upon admission she was started on broad-spectrum IV antibiotics. Wound culture subsequently grew Pseudomonas. She was again seen Dr. Li from the [facility]. Arterial duplex revealed moderate to severe arterial insufficiency with an BJ of 0.46 with suggestion moderate diffuse fempopliteal disease and possible severe tibial vessel disease. MRI obtained today suggestive of focal osteomyelitis involving the distal tip of RLE 1st digit. Past Medical/Surgical History Osteoporosis, Hypothyroidism, Osteoarthritis, stage III CKD, Anemia, Parkinson' s disease, Hypertension, Chronic Venous Insufficiency, Paroxysmal Atrial Fibrillation, and Sick Sinus Syndrome s/p Medtronic Dual Chamber Pacemaker ( implanted 10/22/2016) which was complicated by LUE DVT 12/04/2016 Family History Cancer Heart disease Social History Smoking Status: Never Smoker History of Alcohol Use: No Review of Systems Respiratory: No cough, No sputum, No shortness of breath Cardiac: No chest pain 10 point review of systems was completed and was otherwise negative unless stated in HPI All Other Systems: Reviewed and Negative Allergies Coded Allergies: Amoxicillin (Verified Allergy, Mild, RASH, 12/03/16) Medications Current Inpatient Medications Medications (Trade) Dose Ordered Sig/Fritz Route Start Time Stop Time Status Last Admin Dose Admin Acetaminophen (Tylenol Tab) 650 mg Q4H PRN PO 07/12/17 21:15 08/11/17 21:14 07/14/17 07:55 650 MG Al Hydrox/Mg Hydrox/Simethicone (Maalox Max Susp) 15 ml Q4H PRN PO 07/12/17 21:15 08/11/17 21:14 Polyethylene (Miralax Powder Packet) 17 gm DAILY PRN PO 07/12/17 21:15 08/11/17 21:14 Ondansetron HCl (Zofran Inj) 4 mg Q6H PRN IV 07/12/17 21:15 08/11/17 21:14 Atenolol (Tenormin Tab) 75 mg BID PO 07/13/17 08:00 08/12/17 08:59 07/14/17 07:52 75 MG Calcium/Vitamin D (Caltrate Plus Tab) 1 tab BID PO 07/13/17 08:00 08/12/17 08:59 07/14/17 07:52 1 TAB Cholecalciferol (Vitamin D Tab) 1,000 inter.unit DAILY PO 07/13/17 08:00 08/12/17 08:59 07/14/17 07:52 1,000 INTER.UNIT Clopidogrel Bisulfate (plAVix TAB) 75 mg DAILY PO 07/13/17 08:00 08/12/17 08:59 07/14/17 07:52 75 MG Ferrous Sulfate (Feosol Tab) 325 mg BID PO 07/13/17 08:00 08/12/17 08:59 07/14/17 07:52 325 MG HCTZ/Lisinopril (Prinzide 20-25MG Tab) 1 tab DAILY PO 07/13/17 08:00 08/12/17 08:59 07/14/17 07:52 1 TAB Levothyroxine Sodium (Synthroid Tab) 100 mcg DAILYBB PO 07/13/17 06:30 08/12/17 06:59 07/14/17 05:46 100 MCG Multivitamins/ Minerals (Multivitamin W/ Minerals Tab) 1 tab DAILY PO 07/13/17 08:00 08/12/17 08:59 07/14/17 07:52 1 TAB Miscellaneous Information (Order Awaiting Action) 1 ea QS N/A 07/13/17 00:00 08/12/17 00:00 Vancomycin HCl 1000 mg/Sodium Chloride 270 ml @ 125 mls/hr Q16H IV 07/13/17 08:00 07/22/17 07:59 07/13/17 23:37 125 MLS/HR Vancomycin HCl (Consult) 1 ea UD PRN N/A 07/12/17 23:00 08/11/17 22:59 Imipenem/ Cilastatin Sodium 300 mg/Dextrose 106 ml @ 100 mls/hr Q6H IV 07/13/17 02:00 08/24/17 01:59 07/14/17 07:52 100 MLS/HR Imipenem/ Cilastatin Sodium (Consult) 1 UD PRN N/A 07/13/17 01:45 08/12/17 01:44 Hydralazine HCl (HydrALAZINE INJ) 10 mg Q8H PRN IV. 07/13/17 11:00 08/12/17 10:59 Physical Exam Vital Signs Past 12 Hours Date Time Temp Pulse Resp B/P (MAP) Pulse Ox O2 Delivery O2 Flow Rate FiO2 07/14/17 08:09 36.9 87 18 161/78 (105) 94 Room Air 07/14/17 07:50 Room Air General: Comfortable, no acute distress Eyes: Sclerae anicteric, extraocular movements intact HENT: Oropharynx clear mucous membranes moist Neck: Normal carotid upstrokes, no bruits. No JVD. Lungs: Clear to auscultation bilaterally, no rhonchi or wheezes Cardiac: Regular rate and rhythm, no murmurs, rubs or gallops. Abdomen: Soft, nontender, nondistended, positive bowel sounds. Neuro: Nonfocal Psych: Alert, normal affect and mood Extremities/Vascular: -- 2+ radial bilaterally -- 2+ femoral bilaterally -- diminished right popliteal pulse -- nonpalpable DP/PT pulses -- diffuse erythema involving digits 1 through 4 to the metatarsal heads. Superficial clear/white blister formation at the distal aspect 1st digit with central black tip. No fluctuance, minimal tenderness Data Laboratory Results: Last 24 Hours Test 07/14/17 05:50 White Blood Count 7.61 K/uL Red Blood Count 3.58 M/uL Hemoglobin 10.3 g/dL Hematocrit 30.4 % Mean Corpuscular Volume 84.9 fL Mean Corpuscular Hemoglobin 28.8 pg Mean Corpuscular Hemoglobin Concent 33.9 g/dl Platelet Count 217 K/uL Mean Platelet Volume 9.1 fL Neutrophils (%) (Auto) 63.6 % Lymphocytes (%) (Auto) 20.8 % Monocytes (%) (Auto) 13.3 % Eosinophils (%) (Auto) 1.6 % Basophils (%) (Auto) 0.3 % Neutrophils # (Auto) 4.85 K/uL Lymphocytes # (Auto) 1.58 K/uL Monocytes # (Auto) 1.01 K/uL Eosinophils # (Auto) 0.12 K/uL Basophils # (Auto) 0.02 K/uL RDW Standard Deviation 45.8 fL RDW Coefficient of Variation 14.6 % Immature Granulocyte % (Auto) 0.4 % Immature Granulocyte # (Auto) 0.03 K/uL Sodium Level 138 mmol/L Potassium Level 3.6 mmol/L Chloride Level 104 mmol/L Carbon Dioxide Level 26 mmol/L Anion Gap 8.0 mmol/L Blood Urea Nitrogen 23 mg/dl Creatinine 0.75 mg/dl Est Creatinine Clear Calc Drug Dose 47.0 ml/min Estimated GFR () 83.7 Estimated GFR (Non- 72.2 BUN/Creatinine Ratio 30.3 Random Glucose 102 mg/dl Calcium Level 9.6 mg/dl Magnesium Level 1.6 mg/dl Assessment & Plan 1. Right lower extremity 1st digit cellulitis/osteomyelitis 2. Peripheral artery disease with right lower extremity moderate to severe arterial insufficiency 3. Anemia 4. Parkinson's, peripheral neuropathy, nonambulatory Reviewed patient's arterial duplex and ABIs. Findings suggestive of moderate to severe arterial insufficiency with what appears to be severe diffuse tibial possibly pedal vessel disease. Unclear based on ultrasound if amenable targets to endovascular intervention. With suspected osteomyelitis potential benefits with successful revascularization (WIfI 122) and likely proceed to lower extremity angiogram at some point. Will discuss timing further with primary team/consultants.
[2017-07-14 23:08] VITALS: BP 169/70; PULSE 63; TEMP 36.9; O2SAT 95
[2017-07-15] VITALS (10 sets, daily range): BP systolic 130–167; BP diastolic 56–77; PULSE 48–114; TEMP 36.7–37; O2SAT 92–99
[2017-07-15] MEDS: IMIPENEM/CILASTATIN IV 300 MG in DEXTROSE 5% 100ML 100 ML IV SCH ×4 (01:51→20:44)
[2017-07-15] MEDS: LEVOTHYROXINE 100 MCG TAB PO SCH (05:22)
[2017-07-15] MEDS: CEROVITE ADV FORMULA TAB PO SCH (07:30)
[2017-07-15] MEDS: RESTASIS-ORDER AWAITING ACTION SCH ×3 (07:30→23:51)
[2017-07-15] MEDS: LISINOPRIL/HCTZ 20/25MG TAB PO SCH (07:31)
[2017-07-15] MEDS: FERROUS SULFATE 325 MG TAB PO SCH ×2 (07:31→20:44)
[2017-07-15] MEDS: CLOPIDOGREL BISULFATE 75 MG TAB PO SCH (07:31)
[2017-07-15] MEDS: CALCIUM 600MG + VIT D 400 IU TAB PO SCH ×2 (07:31→20:44)
[2017-07-15] MEDS: CHOLECALCIFEROL 1000 INTER.UNIT TAB PO SCH (07:31)
[2017-07-15 07:57] LABS: HEMATOCRIT 32.3 % (37-47); MEAN CELL VOLUME 85.9 fL (80-100); MEAN CORPUSCULAR HEMOGLOBIN 28.5 pg (25-34); MEAN CORPUSCULAR HGB CONC 33.1 g/dl (32-36); MEAN PLATELET VOLUME 8.9 fL (7.4-10.4); PLATELET COUNT 242 K/uL (130-400); RED BLOOD COUNT 3.76 M/uL (4.2-5.4); WHITE BLOOD COUNT 7.87 K/uL (4.8-10.8)
[2017-07-15] MEDS: ENOXAPARIN 40 MG/0.4 ML SYR SQ SCH (08:00)
[2017-07-15] MEDS ORDERED: NURSING VERBAL MED ORDER ONE (08:15)
[2017-07-15 08:19] LABS: BUN/CREATININE RATIO 22.6 (10-20); CALCIUM 9.5 mg/dl (8.5-10.1); CREATININE 0.86 mg/dl (0.60-1.20); MAGNESIUM 2.1 mg/dl (1.8-2.4); POTASSIUM 3.9 mmol/L (3.5-5.1)
[2017-07-15] MEDS: ACETAMINOPHEN 325 MG TAB PO PRN (09:43)
--- NOTE | 2017-07-15 11:58 | Family Medicine Progress Note ---
Progress Note Date of Service Jul 15, 2017. Subjective Pt evaluation today including: conversation w/ patient, physical exam, chart review, lab review, review of studies Pain: 5/10 pain over left first toe Voiding: no voiding problems, no incontinence Patient resting comfortably in bed this morning with no acute complaints overnight. States she understands that she will be NPO and will be having a procedure done with Dr. Lopez today. Constitutional: No fever, No chills, No fatigue Respiratory: No cough, No wheezing, No shortness of breath Cardiovascular: No chest pain, No palpitations Abdomen: No pain, No nausea, No vomiting, No diarrhea, No constipation Skin: + problem reported (Ulceration with surrounding erythema over right foot first toe. Dressing is C/D/I, with no visible bleeding or discharge at this time) Medications Current Inpatient Medications Medications (Trade) Dose Ordered Sig/Fritz Route Start Time Stop Time Status Last Admin Dose Admin Acetaminophen (Tylenol Tab) 650 mg Q4H PRN PO 07/12/17 21:15 08/11/17 21:14 07/15/17 09:43 650 MG Al Hydrox/Mg Hydrox/Simethicone (Maalox Max Susp) 15 ml Q4H PRN PO 07/12/17 21:15 08/11/17 21:14 Polyethylene (Miralax Powder Packet) 17 gm DAILY PRN PO 07/12/17 21:15 08/11/17 21:14 Ondansetron HCl (Zofran Inj) 4 mg Q6H PRN IV 07/12/17 21:15 08/11/17 21:14 Atenolol (Tenormin Tab) 75 mg BID PO 07/13/17 08:00 08/12/17 08:59 07/15/17 07:31 75 MG Calcium/Vitamin D (Caltrate Plus Tab) 1 tab BID PO 07/13/17 08:00 08/12/17 08:59 07/15/17 07:31 1 TAB Cholecalciferol (Vitamin D Tab) 1,000 inter.unit DAILY PO 07/13/17 08:00 08/12/17 08:59 07/15/17 07:31 1,000 INTER.UNIT Clopidogrel Bisulfate (plAVix TAB) 75 mg DAILY PO 07/13/17 08:00 08/12/17 08:59 07/15/17 07:31 75 MG Ferrous Sulfate (Feosol Tab) 325 mg BID PO 07/13/17 08:00 08/12/17 08:59 07/15/17 07:31 325 MG HCTZ/Lisinopril (Prinzide 20-25MG Tab) 1 tab DAILY PO 07/13/17 08:00 08/12/17 08:59 07/15/17 07:31 1 TAB Levothyroxine Sodium (Synthroid Tab) 100 mcg DAILYBB PO 07/13/17 06:30 08/12/17 06:59 07/15/17 05:22 100 MCG Multivitamins/ Minerals (Multivitamin W/ Minerals Tab) 1 tab DAILY PO 07/13/17 08:00 08/12/17 08:59 07/15/17 07:30 1 TAB Miscellaneous Information (Order Awaiting Action) 1 ea QS N/A 07/13/17 00:00 08/12/17 00:00 Imipenem/ Cilastatin Sodium 300 mg/Dextrose 106 ml @ 100 mls/hr Q6H IV 07/13/17 02:00 08/24/17 01:59 07/15/17 07:30 100 MLS/HR Imipenem/ Cilastatin Sodium (Consult) 1 ea UD PRN N/A 07/13/17 01:45 08/12/17 01:44 Hydralazine HCl (HydrALAZINE INJ) 10 mg Q8H PRN IV. 07/13/17 11:00 08/12/17 10:59 Enoxaparin Sodium (Lovenox Inj) 40 mg QAM SQ 07/15/17 08:00 08/14/17 07:59 Future hold Objective Vital Signs Date Time Temp Pulse Resp B/P (MAP) Pulse Ox O2 Delivery O2 Flow Rate FiO2 07/15/17 10:24 37.0 62 18 145/77 92 Room Air 07/15/17 08:45 62 07/15/17 07:50 37.0 48 18 145/77 (99) 92 Room Air 07/15/17 07:30 Room Air 07/15/17 00:46 Room Air 07/14/17 23:08 36.9 63 20 169/70 (103) 95 Room Air 07/14/17 16:00 Room Air 07/14/17 15:47 36.7 85 20 159/75 (103) 96 Room Air Physical Exam General Appearance: WD/WN, no apparent distress Eyes: normal inspection, sclerae normal Respiratory/Chest: chest non-tender, lungs clear, normal breath sounds Cardiovascular: regular rate, rhythm, no edema, no gallop Abdomen: normal bowel sounds, non tender, soft Extremities: no pedal edema, no calf tenderness Neurologic/Psychiatric: alert, normal mood/affect, oriented x 3 Laboratory Results Results Past 24 Hours Test 07/14/17 15:12 07/15/17 07:43 Range/Units Prothrombin Time 11.0 9.0-12.0 SECONDS Prothromb Time International Ratio 1.0 0.9-1.1 Activated Partial Thromboplast Time 29.4 21.0-31.0 SECONDS Partial Thromboplastin Ratio 1.1 Vancomycin Level Trough 18.5 SEE COMMENT mcg/ml White Blood Count 7.87 4.8-10.8 K/uL Red Blood Count 3.76 4.2-5.4 M/uL Hemoglobin 10.7 12.0-16.0 g/dL Hematocrit 32.3 37-47 % Mean Corpuscular Volume 85.9 80-100 fL Mean Corpuscular Hemoglobin 28.5 25-34 pg Mean Corpuscular Hemoglobin Concent 33.1 32-36 g/dl RDW Standard Deviation 46.2 36.4-46.3 fL RDW Coefficient of Variation 14.7 11.5-14.5 % Platelet Count 242 130-400 K/uL Mean Platelet Volume 8.9 7.4-10.4 fL Sodium Level 135 136-145 mmol/L Potassium Level 3.9 3.5-5.1 mmol/L Chloride Level 102 98-107 mmol/L Carbon Dioxide Level 28 21-32 mmol/L Anion Gap 5.0 3-11 mmol/L Blood Urea Nitrogen 19 7-18 mg/dl Creatinine 0.86 0.60-1.20 mg/dl Est Creatinine Clear Calc Drug Dose 41.0 ml/min Estimated GFR () 70.9 Estimated GFR (Non- 61.2 BUN/Creatinine Ratio 22.6 10-20 Random Glucose 109 70-99 mg/dl Calcium Level 9.5 8.5-10.1 mg/dl Magnesium Level 2.1 1.8-2.4 mg/dl Assessment and Plan Patient is an 86 year old female with a past medical history of chronic kidney disease, hypertension, hyperlipidemia, hypothyroidism, osteoporosis, Parkinson's , TIA, and DVT that presents with cellulitis and possible osteomyelitis of the right foot 1) Cellulitis with possible osteomyelitis - Cellulitis mildly improving on IV antibiotics, proper coverage confirmed with culture - Dr. Lopez will be taking patient for lower extremity angiogram this afternoon given severe arterial insufficiency and suspected osteomyelitis give poor healing prognosis with current vessel disease - Toe X-Ray 07/13: Mild cortical irregularity and lucency involving the volar aspect of the first distal phalanx with associated moderate soft tissue swelling may reflect developing osteomyelitis - MRI 07/14: Concerning for small focus of osteomyelitis at tuft of first toe - Wound Culture - Pansensitive Pseudomonas --> Discontinue Vancomycin and Continue Imipenem - Consult ID --> Can discharge on PO Levaquin, will review dosing with pharmacy - Blood Cultures negative this far - Wound Care Consult: Patient being managed by Dr. Li, Will not debride the wound at this time. Applied dressings with Aquacel and Gauze. Ordered Arterial Doppler to assess vascular supply - Orthopaedic Surgery Consult: At current time patient will be taken for Angiogram of right lower extremity by Dr. Lopez and will continue to follow and provide recommendation afterward - Elevated CRP and ESR - Tylenol for pain 2) Peripheral Artery Disease - Severe disease - Vascular Surgery: Lower Extremity Angiogram scheduled with Dr. Lopez this afternoon - Lower extremity arterial doppler US shows significantly decreased BJ bilaterally. 0.49 in right ankle and 0.51 in left ankle 3) History of Afib and Sick Sinus Syndrome - EKG: Paced Rhythm - Potassium improved to 3.9 after 40meq supplementation - Coumadin discontinued in May 2017 by Cardiology because pacemaker showed no evidence of Afib - Dual Chamber Pacemaker functioning well - Follow up routinely with cardiology as outpatient for pacemaker interrogation - Holding Lovenox prior to Angiogram 4) Hypomagnesemia (2.1) - Resolved - 2g of Magnesium Citrate IV on 07/14 5) History of TIA/ HTN - Continue Plavix, Zestoretic, Atenolol 6) Hypothyroidism - Continue Synthroid 7) Osteoporosis - Continue vitamin D 8) DVT prophylaxis: - SCDs - Lovenox 40mg daily - HOLDING THIS MORNING 9) Code Status - DNR Reviewed: Pt Seen/Exam by Me History Resident Physician Supervision Note: I interviewed and examined the patient. Discussed with Dr. Dloomy and agree with findings and plan as documented in the note. Any exceptions or clarifications are listed here: Patient returned from interventional angiography today and had angioplasty done with mormon of improved blood flow to the right foot. She has no complaints Vitals reviewed No acute distress, alert awake but not oriented to time or place Regular rate and rhythm, no murmurs gallops rubs Lungs clear to auscultation bilaterally, breathing unlabored, no wheezes crackles or rhonchi Positive bowel sounds soft nontender nondistended Extremities-barely palpable dorsalis pedis pulse in the feet bilaterally, right great toe with blister with scab and much improved erythema now only around right toe, improved capillary refill in all the toes 86-year-old female with history of paroxysmal atrial fibrillation, pacemaker in situ, history of DVT, hypertension, hypothyroidism, TIA, and recurrent foot wound on the right, here with new wound of the right great toe with cellulitis of the toe and foot and possible small focus of osteomyelitis of the distal phalanx. Barely palpable pulses, with abnormal BJ and arterial Doppler-with moderate bilateral lower extremity peripheral arterial disease--> now status post interventional angiography with angioplasty -Appreciate orthopedic consultation, continue IV antibiotics but may need surgical amputation or debridement if not improving Discussed case with infectious disease today-will narrow down antibiotics to by mouth Levaquin given pansensitive pseudomonas and will be for at least 4 weeks with outpatient infectious disease follow-up at the wound care clinic [facility] for DVT prophylaxis Documented By: Minda Rubio
[2017-07-15] MEDS ORDERED: MIDAZOLAM HCL 1 MG/ML 2ML VIAL ONE (12:39)
[2017-07-15] MEDS ORDERED: FENTANYL CITRATE INJ 50 MCG/1 ML 2 ML VIAL ONE (12:39)
[2017-07-15] MEDS ORDERED: HEPARIN SOD (PORCINE) 1000 UNIT/ML 10 ML VIAL ONE (12:40)
[2017-07-15] MEDS ORDERED: NiCARDipine HCL INJ 2.5 MG/ML 10 ML AMP ONE (12:41)
[2017-07-15] MEDS ORDERED: NITROGLYCERIN/D5W 100MCG/ML 20ML SYR ONE (12:43)
--- NOTE | 2017-07-15 13:07 | Cardiology Follow-Up ---
Subjective Subjective Date of Service: Jul 15, 2017. Pt evaluation today including: conversation w/ patient, conversation w/ family , physical exam, chart review, lab review, review of studies, conversation w/ quality improvement consultant, review of inpatient medication list Additional Details: Minimal foot pain. No other new complaints. Problem List Medical Problems: (1) Cellulitis of great toe, right Status: Acute (2) Cellulitis of leg, right Status: Acute (3) Deep venous thrombosis of left upper extremity Status: Acute (4) Fall Status: Acute Review of Systems Constitutional: No fever, No chills, No fatigue Respiratory: No cough, No wheezing, No shortness of breath Cardiac: No chest pain, No palpitations Abdomen: No pain, No nausea, No vomiting, No diarrhea, No constipation Musculoskeletal: + problem reported (Right 1st toe pain 05/24) Female : No dysuria Neurologic: No weakness Skin: + problem reported (Ulceration with surrounding erythema over right foot first toe. Dressing is C/D/I, with no visible bleeding or discharge at this time ) Objective Vital Signs Last Vital Signs Documentation Date Time Temp Pulse Resp B/P (MAP) Pulse Ox O2 Delivery O2 Flow Rate FiO2 07/15/17 10:24 37.0 62 18 145/77 92 Room Air Physical Exam: General Appearance: no apparent distress ENT: pharynx normal Respiratory/Chest: chest non-tender, lungs clear, normal breath sounds Cardiovascular: regular rate, rhythm, no edema, no gallop Abdomen: normal bowel sounds, non tender, soft Extremities: no pedal edema, no calf tenderness Neurologic/Psychiatric: alert, normal mood/affect, oriented x 3 Skin: normal color, + pertinent finding (distal RLE wrapped, non-palpable DP/PT ) Assessment and Plan 1. RLE 1st digit cellulitis/osteomyelitis 2. PAD 3. Anemia 4. Parkinson's/dementia/nonambulatory Will plan for bilateral LE angiogram today to evaluate possible endovascular targets. Plan discussed with family and primary team. Further recommendations pending findings. Medications: Current Inpatient Medications Medications (Trade) Dose Ordered Sig/Fritz Route Start Time Stop Time Status Last Admin Dose Admin Acetaminophen (Tylenol Tab) 650 mg Q4H PRN PO 07/12/17 21:15 08/11/17 21:14 07/15/17 09:43 650 MG Al Hydrox/Mg Hydrox/Simethicone (Maalox Max Susp) 15 ml Q4H PRN PO 07/12/17 21:15 08/11/17 21:14 Polyethylene (Miralax Powder Packet) 17 gm DAILY PRN PO 07/12/17 21:15 08/11/17 21:14 Ondansetron HCl (Zofran Inj) 4 mg Q6H PRN IV 07/12/17 21:15 08/11/17 21:14 Atenolol (Tenormin Tab) 75 mg BID PO 07/13/17 08:00 08/12/17 08:59 07/15/17 07:31 75 MG Calcium/Vitamin D (Caltrate Plus Tab) 1 tab BID PO 07/13/17 08:00 08/12/17 08:59 07/15/17 07:31 1 TAB Cholecalciferol (Vitamin D Tab) 1,000 inter.unit DAILY PO 07/13/17 08:00 08/12/17 08:59 07/15/17 07:31 1,000 INTER.UNIT Clopidogrel Bisulfate (plAVix TAB) 75 mg DAILY PO 07/13/17 08:00 08/12/17 08:59 07/15/17 07:31 75 MG Ferrous Sulfate (Feosol Tab) 325 mg BID PO 07/13/17 08:00 08/12/17 08:59 07/15/17 07:31 325 MG HCTZ/Lisinopril (Prinzide 20-25MG Tab) 1 tab DAILY PO 07/13/17 08:00 08/12/17 08:59 07/15/17 07:31 1 TAB Levothyroxine Sodium (Synthroid Tab) 100 mcg DAILYBB PO 07/13/17 06:30 08/12/17 06:59 07/15/17 05:22 100 MCG Multivitamins/ Minerals (Multivitamin W/ Minerals Tab) 1 tab DAILY PO 07/13/17 08:00 08/12/17 08:59 07/15/17 07:30 1 TAB Miscellaneous Information (Order Awaiting Action) 1 ea QS N/A 07/13/17 00:00 08/12/17 00:00 Imipenem/ Cilastatin Sodium 300 mg/Dextrose 106 ml @ 100 mls/hr Q6H IV 07/13/17 02:00 08/24/17 01:59 07/15/17 07:30 100 MLS/HR Imipenem/ Cilastatin Sodium (Consult) 1 ea UD PRN N/A 07/13/17 01:45 08/12/17 01:44 Hydralazine HCl (HydrALAZINE INJ) 10 mg Q8H PRN IV. 07/13/17 11:00 08/12/17 10:59 Enoxaparin Sodium (Lovenox Inj) 40 mg QAM SQ 07/15/17 08:00 08/14/17 07:59 Future hold Lab Results: 07/15/17 07:43 07/15/17 07:43 Test 07/14/17 15:12 07/15/17 07:43 Prothrombin Time 11.0 SECONDS (9.0-12.0) Prothromb Time International Ratio 1.0 (0.9-1.1) Activated Partial Thromboplast Time 29.4 SECONDS (21.0-31.0) Partial Thromboplastin Ratio 1.1 Vancomycin Level Trough 18.5 mcg/ml (SEE COMMENT) Red Blood Count 3.76 M/uL (4.2-5.4) Mean Corpuscular Volume 85.9 fL (80-100) Mean Corpuscular Hemoglobin 28.5 pg (25-34) Mean Corpuscular Hemoglobin Concent 33.1 g/dl (32-36) RDW Standard Deviation 46.2 fL (36.4-46.3) RDW Coefficient of Variation 14.7 % (11.5-14.5) Mean Platelet Volume 8.9 fL (7.4-10.4) Anion Gap 5.0 mmol/L (3-11) Est Creatinine Clear Calc Drug Dose 41.0 ml/min Estimated GFR () 70.9 Estimated GFR (Non- 61.2 BUN/Creatinine Ratio 22.6 (10-20) Calcium Level 9.5 mg/dl (8.5-10.1) Magnesium Level 2.1 mg/dl (1.8-2.4)
--- NOTE | 2017-07-15 13:16 | Progress Note ---
Progress Note Date of Service Jul 15, 2017. Progress Note ID Consult Dictated #[id number] A/P: 1. Osteomyelitis Right first toe with cellulitis in setting of vascular disease - pseudomonas -For vascular studies today, can maintain IV for now -Would suggest transition to po levaquin 500mg daily when taking po x 30 days -thank you
--- NOTE | 2017-07-15 13:18 | Procedure Note ---
Pre-Mod Sedation Assessment General Date of Moderate Sedation: Jul 15, 2017. Vital Signs: Vital Signs Past 12 Hours Date Time Temp Pulse Resp B/P (MAP) Pulse Ox O2 Delivery O2 Flow Rate FiO2 07/15/17 10:24 37.0 62 18 145/77 92 Room Air 07/15/17 08:45 62 07/15/17 07:50 37.0 48 18 145/77 (99) 92 Room Air 07/15/17 07:30 Room Air Review Cardiovascular: regular rate, rhythm, no edema Abdomen: normal bowel sounds, non tender Lungs: chest non-tender, lungs clear Airway Class: II Pre-Sedation Airway Assessment Oral Cavity: Dentures Able to Visualize Vocal Cords: No Short Thick Neck: No Hx of Sleep Apnea: No Smoking Status: Never Smoker Mallampati Classification: Class III ASA Classification: Class III Procedure Planning Contraindications-for Mod Sed: None Yes Notes The planned sedation has been discussed with the patient and consent obtained. I have identified the patient, determined the appropriateness of sedation and have assessed the patient immediately prior to the procedure. All medicine(s) and interventions are by my order.
--- NOTE | 2017-07-15 13:19 | Procedure Note ---
Post-Mod Sedation Assessment General Date of Moderate Sedation Jul 15, 2017. Vital Signs: Vital Signs Past 12 Hours Date Time Temp Pulse Resp B/P (MAP) Pulse Ox O2 Delivery O2 Flow Rate FiO2 07/15/17 10:24 37.0 62 18 145/77 92 Room Air 07/15/17 08:45 62 07/15/17 07:50 37.0 48 18 145/77 (99) 92 Room Air 07/15/17 07:30 Room Air Review - Discharge Criteria Vital Signs Stable: Yes Alert/Oriented/Conversant: Yes Returned to Baseline Mental St: Yes Nausea Absent/Minimal: Yes Pain/Discomfort/Absent/Minimal: Yes Normal/Baseline Respirations: Yes Active Bleeding?: No Pt Received D/C Instructions: N/A Prescriptions Given: None Specific Proced. D/C Criteria Distal Pulses Present (Cardiac: Yes Groin site assessed-Card Cath: N/A Voided Prior To Discharge: N/A Discharged Patients Adult Escort/Transportation: Yes
[2017-07-15] MEDS ORDERED: LIDOCAINE HCL 1% 20 ML VIAL INJ ONE ×2 (13:45→14:32)
[2017-07-15] MEDS ORDERED: FENTANYL CITRATE INJ 50 MCG/1 ML 2 ML VIAL IV ONE ×5 (13:45→16:15)
[2017-07-15] MEDS ORDERED: ORM MISCELLANEOUS MED XX ONE ×2 (13:51→15:18)
--- NOTE | 2017-07-15 14:22 | INFECT. DISEASE CONSULTATION ---
DATE OF CONSULTATION: 07/15/2017 REQUESTING PHYSICIAN: Dr. Pavon. HISTORY OF PRESENT ILLNESS: This is an 86-year-old female who was admitted from her local nursing complaint secondary to worsening erythema of the right foot. 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 This is also associated with erythema and pain. She does have significant vascular disease and is pending vascular studies later today. She did have a culture of the wound obtained here and is growing pansensitive pseudomonas. Her blood cultures have been negative. She currently is on imipenem. She has been afebrile since admission. Her white blood cell count was normal at 7.8. Her sed rate is mildly elevated at 39. She initially had an x-ray which showed questionable early osteomyelitis. This was followed up by an MRI done yesterday which is concerning for a small area of osteo over the toe. She is tolerating antibiotics well. She denies any fevers or chills. She denies any cough, chest pain, shortness of breath, nausea, vomiting, diarrhea. All remaining review of systems are reviewed and are unremarkable. PAST MEDICAL HISTORY: Significant for chronic kidney disease, hypertension, hyperlipidemia, hypothyroidism, osteoporosis, Parkinson disease, TIA. PAST SURGICAL HISTORY: Significant for pacemaker, colonoscopy, laparotomy, tonsil and adenoidectomy. FAMILY HISTORY: Noncontributory. SOCIAL HISTORY: Negative for tobacco use, alcohol use or drug use. ALLERGIES: SHE HAS ALLERGIES TO AMOXICILLIN. CURRENT MEDICATIONS: Include Lovenox, hydralazine, atenolol, calcium and vitamin D, Plavix, iron, lisinopril, multivitamins, levothyroxine, imipenem, Maalox, MiraLax and Zofran. PHYSICAL EXAMINATION: VITAL SIGNS: She is afebrile, pulse 62, respiratory rate is 18, blood pressure is 145/77, oxygen saturation is 92-95% on room air. GENERAL: She is awake and alert. She is in no acute distress. HEENT: Mucous membranes are moist. Extraocular muscles are intact. ABDOMEN: Soft, nontender and nondistended. LUNGS: Clear to auscultation bilaterally. HEART: Regular. EXTREMITIES: There is no edema. Examination of the right lower extremity does reveal ulceration which does appear somewhat ischemic in nature. This is tender to palpation. There is no purulent drainage. There is no foul odor. There is associated warmth and erythema extending into the mid foot. LABORATORY STUDIES: Culture from the foot on the is growing pansensitive pseudomonas. Blood cultures from the are no growth to date x2 sets. CBC today reveals a white blood cell count of 7.8, hemoglobin 10.7 and platelets of 242, sed rate was 39. Chemistry panel reveals a sodium of 135, potassium 3.9, chloride 102, bicarb 28, BUN 19, creatinine 0.86, glucose is 109. The CRP was elevated at 1.3. The imaging is as above. ASSESSMENT AND PLAN: Right foot osteomyelitis with some ischemic component as well. She is going for vascular studies today and I will await the results of those. She can be on imipenem as she is currently awaiting procedure. She likely will be discharged on oral Levaquin. I do not see an indication for PICC line or IV antibiotics. She likely can be treated with oral levofloxacin for this infection. Thank you for this consultation.
[2017-07-15] MEDS ORDERED: HEPARIN SOD (PORCINE) 1000 UNIT/ML 10 ML VIAL IV ONE (15:10)
[2017-07-15] MEDS ORDERED: IODIXANOL (VISIPAQUE) 270 MG/ML 150ML FLUSH ONE (16:49)
[2017-07-15] MEDS ORDERED: SODIUM CHLORIDE 0.9% 1000ML 1,000 ML IV SCH (17:01)
[2017-07-15] MEDS ORDERED: ASPIRIN 325 MG ECTAB PO ONE (17:15)
--- NOTE | 2017-07-15 17:30 | [facility] Operative Report ---
Operative Report Operative Date Jul 15, 2017. Pre-Operative Diagnosis Peripheral artery disease Post-Operative Diagnosis same Procedure(s) Performed Right radial angiography Abdominal aortography Bilateral Lower Extremity Angiogram Percutaneous Transluminal Angioplasty Of Right Popliteal Artery PTCA of right tibioperoneal trunk Mechanical Closure Of Right Femoral Artery Surgeon Dr. Toñito Lopez New Car Salesperson Surgeon(s) none Estimated Blood Loss 50 ml Findings Abdominal aorta -- Mild diffuse sclerosis, no aneurysmal disease Renal arteries-- Minimal disease bilaterally Left lower extremity: Common iliac - Tortuous, minimal disease External iliac - Tortuous minimal disease Internal iliac - Minimal disease QUAD STAYER - Minimal disease Right lower extremity: Common iliac - Tortuous minimal disease External iliac - Tortuous, minimal disease Internal iliac - Minimal disease QUAD STAYER - Minimal disease, high bifurcation Profunda - Minimal disease SFA - Mild diffuse atherosclerosis proximally; mild to moderate diffuse calcified disease distally Popliteal - Chronic occlusion in mid segment, reconstitutes distally just before take-off AT (length of occlusion 50 mm) TPT - severe focal disease AT - Occluded proximally, faint reconstitution at ankle; severe diffuse disease in DP PT - Short focal occlusion in mid segment, reconstitutes distally with only mild disease to the foot Peroneal - Focal mid segment moderate disease Specimens none Drains None Anesthesia Moderate (100 mcg Fentanyl Complication(s) None Disposition PCU Indications PAD Osteomyelitis Description of Procedure Right radial artery access. Tortuous vessel at elbow navigated with glidewire. Pigtail placed in descending aorta for aortography, iliac imaging. Unable to pass selective catheter distally due to tortuosity/radial artery spasm. Converted to antegrade right QUAD STAYER access - ultrasound guided. Selective angiography of distal RLE 25 cm 6Fr sheath placed to SFA Attempted initially to wire occluded distal popliteal with 0.14 wires (command, confianza, astato) and quickcross catheter but unable to enter distal vessl. Switched to 0.35 glideadvantage/glidecath and successfully crossed into TPT/ peroneal confirmed with distal angiography via catheter. AUTOMATION SOFTWARE ENGINEER of TPT and below the knee popliteal performed with 3.0 x 40 mm balloon Residual dissection noted in distal popliteal. Transitioned to 0.14 system with command wire. Prolonged balloon inflation with 4.0 x 40 Chocolate Balloon Post procedure popliteal/TPT well expanded, minimal residual dissection with brisk inline flow and 2 vessel distal run-off to the foot. Improved blush to 1st digit. Mynx closure device placed to right QUAD STAYER and 15 minutes of additional manual compression held. Contrast 175 cc Summary: 1. Successful AUTOMATION SOFTWARE ENGINEER of occluded right popliteal artery with 4.0 Chocolate Balloon. 2. Successful AUTOMATION SOFTWARE ENGINEER of right tibioperoneal trunk. Recommendations: -- To PCU for continued monitoring. -- continue home plavix. Add aspirin and continue DAPT for 1 month. -- start statin. I attest to the content of the Intraoperative Record and any orders documented therein. Any exceptions are noted below.
[2017-07-16] MEDS: IMIPENEM/CILASTATIN IV 300 MG in DEXTROSE 5% 100ML 100 ML IV SCH ×3 (02:15→14:35)
[2017-07-16 03:13] VITALS: BP 134/71; PULSE 48; TEMP 36.7; O2SAT 97
[2017-07-16 04:00] VITALS: O2SAT 97
[2017-07-16] MEDS: LEVOTHYROXINE 100 MCG TAB PO SCH (06:01)
[2017-07-16] MEDS: RESTASIS-ORDER AWAITING ACTION SCH ×2 (07:32→15:41)
[2017-07-16 07:36] VITALS: BP 124/69; PULSE 68; TEMP 36.7; O2SAT 96
[2017-07-16] MEDS: CEROVITE ADV FORMULA TAB PO SCH (08:19)
[2017-07-16] MEDS: FERROUS SULFATE 325 MG TAB PO SCH (08:19)
[2017-07-16] MEDS: CLOPIDOGREL BISULFATE 75 MG TAB PO SCH (08:19)
[2017-07-16] MEDS: LISINOPRIL/HCTZ 20/25MG TAB PO SCH (08:19)
[2017-07-16] MEDS: CHOLECALCIFEROL 1000 INTER.UNIT TAB PO SCH (08:19)
[2017-07-16] MEDS: ENOXAPARIN 40 MG/0.4 ML SYR SQ SCH (08:20)
[2017-07-16] MEDS: CALCIUM 600MG + VIT D 400 IU TAB PO SCH (08:20)
[2017-07-16 08:40] LABS: BASO % 0.2 %; BASO ABS # 0.02 K/uL (0-0.2); COMPLETE YES; EOS % 0.8 %; HEMATOCRIT 28.3 % (37-47); IG% 0.3 %; LYMPH % 16.4 %; LYMPH ABS # 1.63 K/uL (1.2-3.4); MEAN CELL VOLUME 86.5 fL (80-100); MEAN CORPUSCULAR HEMOGLOBIN 27.8 pg (25-34); MEAN CORPUSCULAR HGB CONC 32.2 g/dl (32-36); MEAN PLATELET VOLUME 8.9 fL (7.4-10.4); MONO % 12.7 %; NEUT % 69.6 %; PLATELET COUNT 240 K/uL (130-400); RED BLOOD COUNT 3.27 M/uL (4.2-5.4); WHITE BLOOD COUNT 9.95 K/uL (4.8-10.8)
[2017-07-16] MEDS ORDERED: ATORVASTATIN 20 MG TAB PO SCH (09:00)
[2017-07-16] MEDS ORDERED: ASPIRIN 81 MG ECTAB PO SCH (09:00)
[2017-07-16 09:07] LABS: BUN/CREATININE RATIO 22.9 (10-20); CALCIUM 9.1 mg/dl (8.5-10.1)
[2017-07-16] MEDS: ACETAMINOPHEN 325 MG TAB PO PRN ×2 (09:44→14:38)
[2017-07-16 11:41] VITALS: BP 121/65; PULSE 74; TEMP 37; O2SAT 96
--- NOTE | 2017-07-16 13:24 | Progress Note ---
Subjective Date of Service: Jul 16, 2017. Subjective no overnight events. afebrile tolerating abx. on imipenem. s/o angioplasty yesterday, tolerated well. blood cultures remain negative. wbc remains nml. Problem List Medical Problems: (1) Cellulitis of great toe, right Status: Acute (2) Cellulitis of leg, right Status: Acute (3) Deep venous thrombosis of left upper extremity Status: Acute (4) Fall Status: Acute Objective Vital Signs Date Time Temp Pulse Resp B/P (MAP) Pulse Ox O2 Delivery O2 Flow Rate FiO2 07/16/17 12:00 Room Air 07/16/17 11:41 37.0 74 18 121/65 (83) 96 07/16/17 08:00 Room Air 07/16/17 07:36 36.7 68 18 124/69 (87) 96 07/16/17 04:00 97 Room Air 2.0 07/16/17 03:13 36.7 48 18 134/71 (92) 97 Room Air 07/16/17 00:00 Nasal Cannula 2.0 07/15/17 23:28 37.0 114 22 132/58 (82) 95 Nasal Cannula 1.5 07/15/17 20:00 99 Room Air 2.0 07/15/17 18:30 67 18 138/61 (86) 99 Room Air 2.0 07/15/17 18:15 65 16 167/64 (98) 94 Room Air 2.0 07/15/17 18:00 82 17 130/62 (84) 93 Room Air 2.0 07/15/17 17:45 78 18 157/63 (94) 93 Room Air 2.0 07/15/17 17:30 36.7 19 151/56 (87) 92 Room Air 2.0 Laboratory Results Item Value Date Time Gram Stain - Final Complete 07/12/171914 Abscess Swab Blood Culture - Preliminary Resulted 07/12/171939 Blood NO GROWTH TO DATE. Blood Culture - Preliminary Resulted 07/12/172001 Blood NO GROWTH TO DATE. Last 24 Hours Test 07/15/17 16:19 07/15/17 16:43 07/16/17 08:30 Kaolin Activated Coagulation Time 219 SECONDS 202 SECONDS White Blood Count 9.95 K/uL Red Blood Count 3.27 M/uL Hemoglobin 9.1 g/dL Hematocrit 28.3 % Mean Corpuscular Volume 86.5 fL Mean Corpuscular Hemoglobin 27.8 pg Mean Corpuscular Hemoglobin Concent 32.2 g/dl Platelet Count 240 K/uL Mean Platelet Volume 8.9 fL Neutrophils (%) (Auto) 69.6 % Lymphocytes (%) (Auto) 16.4 % Monocytes (%) (Auto) 12.7 % Eosinophils (%) (Auto) 0.8 % Basophils (%) (Auto) 0.2 % Neutrophils # (Auto) 6.93 K/uL Lymphocytes # (Auto) 1.63 K/uL Monocytes # (Auto) 1.26 K/uL Eosinophils # (Auto) 0.08 K/uL Basophils # (Auto) 0.02 K/uL RDW Standard Deviation 46.3 fL RDW Coefficient of Variation 14.7 % Immature Granulocyte % (Auto) 0.3 % Immature Granulocyte # (Auto) 0.03 K/uL Sodium Level 136 mmol/L Potassium Level 4.0 mmol/L Chloride Level 101 mmol/L Carbon Dioxide Level 26 mmol/L Anion Gap 9.0 mmol/L Blood Urea Nitrogen 23 mg/dl Creatinine 1.00 mg/dl Est Creatinine Clear Calc Drug Dose 35.3 ml/min Estimated GFR () 59.1 Estimated GFR (Non- 51.0 BUN/Creatinine Ratio 22.9 Random Glucose 106 mg/dl Calcium Level 9.1 mg/dl Assessment and Plan (1) Osteomyelitis of right foot Assessment & Plan: can continue imipenem, would suggest transition to po levaquin for min 4 weeks. can follow in wound center post d/c. ok for d/ from ID standpoint when otherwise stable.
[2017-07-16] MEDS ORDERED: ATOR-22 PO (14:18)
[2017-07-16] MEDS ORDERED: ASPI81TA28 PO (14:18)
[2017-07-16] MEDS ORDERED: LEVO1TAB35 PO (14:18)
--- NOTE | 2017-07-16 14:23 | Discharge Instructions ---
Discharge Instructions Date of Service Jul 16, 2017. Admission Reason for Admission: Osteomyelitis Discharge Discharge Diagnosis / Problem: Cellulitis with osteomyelitis of 1st toe of right foot Discharge Goals Goal(s): Decrease discomfort, Improve function, Therapeutic intervention Activity Recommendations Activity Level: Assistance Required . Additional Information Patient informed of condition: Yes Advance Directives: Yes DNR: Yes Level of Care: Skilled Communicable Disease: No Prognosis: Improving Bassett Catheter: No Instructions / Follow-Up Instructions / Follow-Up Patient is an 86 year old female with a past medical history of chronic kidney disease, hypertension, hyperlipidemia, hypothyroidism, osteoporosis, Parkinson's , TIA, and DVT that presented with cellulitis and possible osteomyelitis of the right foot. Imaging of the foot revealed antibiotics and the patient was seen by Infectious Disease, Orthopaedics, and Vascular surgery. The patient was initially treated with IV antibiotics and her cultures came back growing Pseudomonas. Doppler US of the legs revealed significant peripheral artery disease so the patient was taken by Dr. Lopez for successful angioplast to increase blood flow to the foot. The patient was assessed by orthopaedic surgery and at this time will not require medical management. Infectious disease decided the patient can be treated with oral antibiotics for a minimum of 4 weeks with follow up. On discharge the patient is stable with slightly improved appearance of the wound in addition to appearing c/d/i, INSTRUCTIONS: NEW MEDICATIONS: - Atorvastatin 20mg PO Daily - Aspirin 81mg PO Daily --> DUAL THERAPY WITH PLAVIX FOR 1 MONTH, ONLY PLAVIX AFTER 1 MONTH - Levaquin 750mg PO Every other day for 4 weeks LAB WORK IN 1 WEEK: - CBC - CMP - ESR - CRP FOLLOW UP APPOINTMENTS: - Follow with [facility] - Dr. Bailon - 2 week follow up - INFECTIOUS DISEASE' - Dr. Bae - 7-10 days follow up - ORTHOPAEDIC SURGERY - Dr. Lopez - 2 weeks - CARDIOLOGY (VASCULAR SURGERY) - Primary Care Provider - 1 week 1) Cellulitis with possible osteomyelitis - Cellulitis mildly improving on IV antibiotics, proper coverage confirmed with culture - Received 4 days of IV Imipenem - ID - Discharge on 4 weeks of PO Levaquin - Successful angioplasty of right popliteal and right tibioperoneal trunk by Dr. Lopez - Toe X-Ray 07/13: Mild cortical irregularity and lucency involving the volar aspect of the first distal phalanx with associated moderate soft tissue swelling may reflect developing osteomyelitis - MRI 07/14: Concerning for small focus of osteomyelitis at tuft of first toe - Wound Culture - Pansensitive Pseudomonas --> Sensitive to Imipenem - Consult ID --> Can discharge on PO Levaquin, will review dosing with pharmacy - Blood Cultures negative - Wound Care Consult: Patient being managed by Dr. Li, Will not debride the wound at this time. Applied dressings with Aquacel and Gauze. - Orthopaedic Surgery Consult: No surgical management at this time - Elevated CRP and ESR - Tylenol for pain 2) Peripheral Artery Disease - Severe disease - Vascular Surgery: Successful angioplasty of right popliteal and right tibioperoneal trunk by Dr. Lopez - Dual antiplatelet therapy (Aspirin + Plavix) for 1 month, then continue Plavix thereafter - Start statin --> Atorvastatin 20mg PO Daily - Lower extremity arterial doppler US shows significantly decreased BJ bilaterally. 0.49 in right ankle and 0.51 in left ankle 3) History of Afib and Sick Sinus Syndrome - EKG: Paced Rhythm - Potassium improved to 3.9 after 40meq supplementation - Coumadin discontinued in May 2017 by Cardiology because pacemaker showed no evidence of Afib - Dual Chamber Pacemaker functioning well - Follow up routinely with cardiology as outpatient for pacemaker interrogation 4) Hypomagnesemia (2.1) - Resolved - 2g of Magnesium Citrate IV on 07/14 5) History of TIA/ HTN - Continue Plavix, Zestoretic, Atenolol 6) Hypothyroidism - Continue Synthroid 7) Osteoporosis - Continue vitamin D 8) DVT prophylaxis: - SCDs 9) Code Status - DNR Current Hospital Diet Patient's current hospital diet: AHA Diet (Heart Healthy) Discharge Diet Recommended Diet: AHA Diet (Heart Healthy) Procedures Procedures Performed: Right radial angiography Abdominal aortography Bilateral Lower Extremity Angiogram Percutaneous Transluminal Angioplasty Of Right Popliteal Artery PTCA of right tibioperoneal trunk Mechanical Closure Of Right Femoral Artery Pending Studies Studies pending at discharge: no Physician Orders On Transfer Special Precautions: None Dressing Changes: Aquacel and Gauze to first toe of right foot IV Therapy: None Vital Signs: Routine Weigh: routine Additional Orders: None Medical Emergencies . Who to Call and When: Medical Emergencies: If at any time you feel your situation is an emergency, please call 911 immediately. . Non-Emergent Contact Non-Emergency issues call your: Primary Care Provider . . "Provider Documentation" section prepared by Joe Gao. . Core Measure Problem Core Measures: None
--- NOTE | 2017-07-16 15:03 | Discharge Summary ---
Discharge Summary Date of Service Jul 16, 2017. (Joe Gao MD) Discharge Summary Admission Date: Jul 12, 2017 at 21:11 Discharge Date: Jul 16, 2017 Discharge Disposition: group home facility Principal Diagnosis: Cellulitis with Osteomyeltitis Problems/Secondary Diagnoses: Moderate Peripheral Artery Disease, Hypomagnesemia, Atrial Fibrillation Immunizations: Have You Had Influenza Vaccine: Yes Influenza Vaccine Date: Aug 30, 2015 History of Tetanus Vaccine?: Yes Tetanus Immunization Date: Apr 17, 2014 History of Pneumococcal: Yes History of Hepatitis B Vaccine: Unknown Procedures: Right radial angiography Abdominal aortography Bilateral Lower Extremity Angiogram Percutaneous Transluminal Angioplasty Of Right Popliteal Artery PTCA of right tibioperoneal trunk Mechanical Closure Of Right Femoral Artery Consultations: Cardiology Infectious Disease Orthopaedic Surgery (Joe Gao MD) Problems/Secondary Diagnoses: Chronic kidney disease stage II-III Hypertension Hyperlipidemia Hypothyroidism Osteoporosis Parkinson's Disease History of TIA History of DVT History of Afib and Sick Sinus Syndrome Pacemaker in situ Hypokalemia Hypomagnesemia Procedures: MRI right foot Xrays right foot Lower extremity arterial Doppler (Minda Rubio MD) Medication Reconciliation New Medications: Aspirin (Aspirin Ec) 81 Mg Tab 81 MG PO DAILY for 30 Days, #30 TAB Atorvastatin (Lipitor) 20 Mg Tab 1 TAB PO DAILY for 30 Days, #30 TAB 5 Refills Levofloxacin (Levaquin) 750 Mg Tab 750 MG PO Q2D for 28 Days, #28 TAB Continued Medications: Acetaminophen (Tylenol) 325 Mg Tab 650 MG PO Q6H PRN for Pain or Fever NTE 3GM APAP/24HRS Acetaminophen Tab (Tylenol) 325 Mg Tab 650 MG PO HS NTE 3GM APAP/24HRS Atenolol (Tenormin) 25 Mg Tab 75 MG PO BID, TAB Calcium/Vitamin D (Os-Niall 500 Plus D) Tab 1 TAB PO BID, TAB Cholecalciferol (Vitamin D3) 1,000 Unit Tab 1000 UNITS PO DAILY Clopidogrel (Plavix) 75 Mg Tab 75 MG PO DAILY, TAB Cyclosporine (Restasis Eye Drops) Soln 1 DROP OP BID, BTL Ferrous Sulfate (Fe Tabs) 325 Mg Tab 325 MG PO BID, TAB Fish Oil ([place]-3) 1 Ea Cap 1 CAP PO BID, CAP Hctz/Lisinopril (Zestoretic 20MG/25MG) 1 Ea Tab 1 TAB PO DAILY, TAB Levothyroxine Sodium (Levothyroxine Sodium) 100 Mcg Tab 100 MCG PO DAILY Multiple Vitamins W/ Minerals (Theragran-M) 1 Tab Tab 1 TAB PO DAILY [Vitamin B12 Inject] () 1 ML IM [id number] INJECT 1ML (1000 MCG) EVERY OTHER MONTH ON THE 15 Discontinued Medications: Sulfa/Trimethoprim (Bactrim Ds 800MG/160MG) Tab 1 TAB PO BID for 10 Days BEGIN 07/12/17 X 10 DAYS Discharge Exam Review of Systems: Constitutional: No fever, No chills, No weight loss, No fatigue Respiratory: No cough, No sputum, No shortness of breath Cardiovascular: No chest pain, No palpitations Abdomen: No pain, No nausea, No vomiting, No diarrhea Musculoskeletal: + problem reported (Right toe pain) Genitourinary - Female: No dysuria Physical Exam: General Appearance: WD/WN, no apparent distress Eyes: normal inspection, sclerae normal Respiratory/Chest: chest non-tender, lungs clear, normal breath sounds Cardiovascular: regular rate, rhythm, no edema, no gallop Abdomen / GI: normal bowel sounds, non tender, soft Extremities: no calf tenderness, + pertinent finding (Eschar over distal aspect of first toe on the right foot with surrounding erythema. Erythema also over the distal aspect of the 2nd to 4th toes) Neurologic/Psychiatric: alert, normal mood/affect (Joe Gao MD) Hospital Course Patient is an 86 year old female with a past medical history of chronic kidney disease, hypertension, hyperlipidemia, hypothyroidism, osteoporosis, Parkinson's , TIA, and DVT that presented with cellulitis and possible osteomyelitis of the right foot. Imaging of the foot revealed antibiotics and the patient was seen by Infectious Disease, Orthopaedics, and Vascular surgery. The patient was initially treated with IV antibiotics and her cultures came back growing Pseudomonas. Doppler US of the legs revealed significant peripheral artery disease so the patient was taken by Dr. Lopez for successful angioplast to increase blood flow to the foot. The patient was assessed by orthopaedic surgery and at this time will not require medical management. Infectious disease decided the patient can be treated with oral antibiotics for a minimum of 4 weeks with follow up. On discharge the patient is stable with slightly improved appearance of the wound in addition to appearing c/d/i, INSTRUCTIONS: NEW MEDICATIONS: - Atorvastatin 20mg PO Daily - Aspirin 81mg PO Daily --> DUAL THERAPY WITH PLAVIX FOR 1 MONTH, ONLY PLAVIX AFTER 1 MONTH - Levaquin 750mg PO Every other day for 4 weeks LAB WORK IN 1 WEEK: - CBC --> additional history of anemia - CMP - ESR - CRP FOLLOW UP APPOINTMENTS: - Follow with [facility] - Dr. Bailon - 2 week follow up - INFECTIOUS DISEASE' - Dr. Bae - 7-10 days follow up - ORTHOPAEDIC SURGERY - Dr. Lopez - 2 weeks - CARDIOLOGY (VASCULAR SURGERY) - Primary Care Provider - 1 week 1) Cellulitis with possible osteomyelitis - Cellulitis mildly improving on IV antibiotics, proper coverage confirmed with culture - Received 4 days of IV Imipenem - ID - Discharge on 4 weeks of PO Levaquin - Successful angioplasty of right popliteal and right tibioperoneal trunk by Dr. Lopez - Toe X-Ray 07/13: Mild cortical irregularity and lucency involving the volar aspect of the first distal phalanx with associated moderate soft tissue swelling may reflect developing osteomyelitis - MRI 07/14: Concerning for small focus of osteomyelitis at tuft of first toe - Wound Culture - Pansensitive Pseudomonas --> Sensitive to Imipenem - Consult ID --> Can discharge on PO Levaquin, will review dosing with pharmacy - Blood Cultures negative - Wound Care Consult: Patient being managed by Dr. Li, Will not debride the wound at this time. Applied dressings with Aquacel and Gauze. - Orthopaedic Surgery Consult: No surgical management at this time - Elevated CRP and ESR - Tylenol for pain 2) Peripheral Artery Disease - Severe disease - Vascular Surgery: Successful angioplasty of right popliteal and right tibioperoneal trunk by Dr. Lopez - Dual antiplatelet therapy (Aspirin + Plavix) for 1 month, then continue Plavix thereafter - Start statin --> Atorvastatin 20mg PO Daily - Lower extremity arterial doppler US shows significantly decreased BJ bilaterally. 0.49 in right ankle and 0.51 in left ankle 3) History of Afib and Sick Sinus Syndrome - EKG: Paced Rhythm - Potassium improved to 3.9 after 40meq supplementation - Coumadin discontinued in May 2017 by Cardiology because pacemaker showed no evidence of Afib - Dual Chamber Pacemaker functioning well - Follow up routinely with cardiology as outpatient for pacemaker interrogation 4) Anemia (as per iron studies from 2017) - Continue oral iron - Monitor CBC 4) Hypomagnesemia (2.1) - Resolved - 2g of Magnesium Citrate IV on 07/14 5) History of TIA/ HTN - Continue Plavix, Zestoretic, Atenolol 6) Hypothyroidism - Continue Synthroid 7) Osteoporosis - Continue vitamin D 8) DVT prophylaxis: - SCDs 9) Code Status - DNR Total Time Spent: Greater than 30 minutes This includes examination of the patient, discharge planning, medication reconciliation, and communication with other providers. (Joe Gao MD) Discharge Instructions Please refer to the electronic Patient Visit Report (Discharge Instructions) for additional information. (Joe Gao MD) Additional Copies To [facility] Resident Tracking Resident Involvement: Resident Care Provided Care Provided: Adult [facility] Medicine (Joe Gao MD) Reviewed: Pt Seen/Exam by Me (Minda Rubio MD) History Resident Physician Supervision Note: I interviewed and examined the patient. Discussed with Dr. Gao and agree with findings and plan as documented in the note. Any exceptions or clarifications are listed here: Pt has no complaints, afebrile, feeling well, ready for discharge Vitals reviewed No acute distress, alert awake but not oriented to time or place Regular rate and rhythm, no murmurs gallops rubs Lungs clear to auscultation bilaterally, breathing unlabored, no wheezes crackles or rhonchi Positive bowel sounds soft nontender nondistended Extremities-barely palpable dorsalis pedis pulse in the feet bilaterally, right great toe with blister with scab and much improved erythema now only around right toe, improved capillary refill in all the toes 86-year-old female with history of paroxysmal atrial fibrillation, pacemaker in situ, history of DVT, hypertension, hypothyroidism, TIA, and recurrent foot wound on the right, here with new wound of the right great toe with cellulitis of the toe and foot and possible small focus of osteomyelitis of the distal phalanx. Barely palpable pulses, with abnormal BJ and arterial Doppler-with moderate bilateral lower extremity peripheral arterial disease--> now status post interventional angiography with angioplasty for improved healing of right great toe infection -Appreciate orthopedic consultation, continue po antibiotics for 4 weeks but if not healing, may end up needing surgical amputation or debridement -f/u outpatient infectious disease and follow-up at the wound care clinic Documented By: Minda Rubio (Minda Rubio MD)
--- NOTE | 2017-07-16 15:15 | Progress Note ---
Progress Note Date of Service Jul 16, 2017. Progress Note She is status post balloon dilator rotation of her arteries in the right leg. I have reviewed Dr. Lopez's note. No problems are noted. She is afebrile. White count normal. Her foot looks much better the erythema has resolved from the foot. She still has some blackish discoloration tip and medial side of the toe without open wound drainage. There is mild erythema of the toe her nail is deformed there is mild duskiness just proximal to the nail fold. No purulence. I do not palpate any pulses. Foot is warm. The plan at this time is to see how she does with the revascularization. We'll meet her knee in the office 7- 10 days. She can be continued on a oral antibiotic. If her ulcer is an issue and she has osteomyelitis than some form of surgical intervention/amputation might be necessary. I have spoken with Dr. Ramiro Cortez: Her nutritional status and and anemia.
[2017-07-16 15:46] VITALS: BP 121/65; PULSE 74; TEMP 37; O2SAT 96
[2017-07-16 16:01] VITALS: BP 145/68; PULSE 76; TEMP 36.3; O2SAT 96
--- NOTE | 2017-07-16 16:55 | Cardiology Follow-Up ---
Subjective Subjective Date of Service: Jul 16, 2017. Pt evaluation today including: conversation w/ patient, physical exam, chart review, lab review, review of studies, review of inpatient medication list Additional Details: No events overnight or new complaints this AM. Tele reviewed -- brief episodes NSVT Problem List Medical Problems: (1) Cellulitis of great toe, right Status: Acute (2) Cellulitis of leg, right Status: Acute (3) Deep venous thrombosis of left upper extremity Status: Acute (4) Fall Status: Acute Review of Systems Constitutional: No fever, No chills, No fatigue Respiratory: No cough, No wheezing, No shortness of breath Cardiac: No chest pain, No palpitations Abdomen: No pain, No nausea, No vomiting, No diarrhea, No constipation Musculoskeletal: + problem reported (Right 1st toe pain 05/24) Female : No dysuria Neurologic: No weakness Skin: + problem reported (Ulceration with surrounding erythema over right foot first toe. Dressing is C/D/I, with no visible bleeding or discharge at this time ) Objective Vital Signs Last Vital Signs Documentation Date Time Temp Pulse Resp B/P (MAP) Pulse Ox O2 Delivery O2 Flow Rate FiO2 07/16/17 16:01 36.3 76 16 145/68 (93) 96 Room Air 07/16/17 04:00 2.0 Physical Exam: General Appearance: no apparent distress ENT: pharynx normal Respiratory/Chest: chest non-tender, lungs clear, normal breath sounds Cardiovascular: regular rate, rhythm, no edema, no gallop Abdomen: normal bowel sounds, non tender, soft Extremities: no pedal edema, no calf tenderness, + pertinent finding ( diminished right radial artery pulses. intact distal sensation. normal cap refill. ecchymosis at radial artery access site.) Neurologic/Psychiatric: alert, normal mood/affect, oriented x 3 Skin: normal color, + pertinent finding (decreased erythema in 1st digit/ forefut, normal cap refill, faint PT pulse. DP nonpalpable) Comments: right femoral artery access site - soft, no hematoma, intact pulses Assessment and Plan 1. RLE 1st digit cellulitis/osteomyelitis 2. PAD 3. Anemia 4. Parkinson's/dementia/nonambulatory POD#1 from Popliteal/TPT angioplasty Diminished right radial artery pulse but no other apparent access site complications. Distal perfusion of RLE appears improved 1st digit/forefoot erythema improving. From a cardiovascular standpoint OK for discharge today. -- repeat BMP/CBC next week -- continue DAPT with ASA/Plavix for 1 month -- continue statin -- Follow-up with me in 1 month with repeat ultrasound/ABIs Will plan for bilateral LE angiogram today to evaluate possible endovascular targets. Plan discussed with family and primary team. Further recommendations pending findings. Medications: Current Inpatient Medications Medications (Trade) Dose Ordered Sig/Fritz Route Start Time Stop Time Status Last Admin Dose Admin Al Hydrox/Mg Hydrox/Simethicone (Maalox Max Susp) 15 ml Q4H PRN PO 07/12/17 21:15 08/11/17 21:14 Polyethylene (Miralax Powder Packet) 17 gm DAILY PRN PO 07/12/17 21:15 08/11/17 21:14 Ondansetron HCl (Zofran Inj) 4 mg Q6H PRN IV 07/12/17 21:15 08/11/17 21:14 Atenolol (Tenormin Tab) 75 mg BID PO 07/13/17 08:00 08/12/17 08:59 07/16/17 08:19 75 MG Calcium/Vitamin D (Caltrate Plus Tab) 1 tab BID PO 07/13/17 08:00 08/12/17 08:59 07/16/17 08:20 1 TAB Cholecalciferol (Vitamin D Tab) 1,000 inter.unit DAILY PO 07/13/17 08:00 08/12/17 08:59 07/16/17 08:19 1,000 INTER.UNIT Clopidogrel Bisulfate (plAVix TAB) 75 mg DAILY PO 07/13/17 08:00 08/12/17 08:59 07/16/17 08:19 75 MG Ferrous Sulfate (Feosol Tab) 325 mg BID PO 07/13/17 08:00 08/12/17 08:59 07/16/17 08:19 325 MG HCTZ/Lisinopril (Prinzide 20-25MG Tab) 1 tab DAILY PO 07/13/17 08:00 08/12/17 08:59 07/16/17 08:19 1 TAB Levothyroxine Sodium (Synthroid Tab) 100 mcg DAILYBB PO 07/13/17 06:30 08/12/17 06:59 07/16/17 06:01 100 MCG Multivitamins/ Minerals (Multivitamin W/ Minerals Tab) 1 tab DAILY PO 07/13/17 08:00 08/12/17 08:59 07/16/17 08:19 1 TAB Miscellaneous Information (Order Awaiting Action) 1 ea QS N/A 07/13/17 00:00 08/12/17 00:00 Imipenem/ Cilastatin Sodium 300 mg/Dextrose 106 ml @ 100 mls/hr Q6H IV 07/13/17 02:00 08/24/17 01:59 07/16/17 14:35 100 MLS/HR Imipenem/ Cilastatin Sodium (Consult) 1 ea UD PRN N/A 07/13/17 01:45 08/12/17 01:44 Hydralazine HCl (HydrALAZINE INJ) 10 mg Q8H PRN IV. 07/13/17 11:00 08/12/17 10:59 Enoxaparin Sodium (Lovenox Inj) 40 mg QAM SQ 07/15/17 08:00 08/14/17 07:59 Future hold 07/16/17 08:20 40 MG Acetaminophen (Tylenol Tab) 650 mg Q4H PRN PO 07/15/17 17:15 08/14/17 17:14 07/16/17 14:38 650 MG Aspirin (Ecotrin Tab) 81 mg QAM PO 07/16/17 09:00 08/15/17 08:59 07/16/17 08:20 81 MG Atorvastatin Calcium (Lipitor Tab) 20 mg QAM PO 07/16/17 09:00 08/15/17 08:59 07/16/17 08:19 20 MG Lab Results: 07/16/17 08:30 Red Blood Count 3.27, Mean Corpuscular Volume 86.5, Mean Corpuscular Hemoglobin 27.8, Mean Corpuscular Hemoglobin Concent 32.2, Mean Platelet Volume 8.9, Neutrophils (%) (Auto) 69.6, Lymphocytes (%) (Auto) 16.4, Monocytes (%) (Auto) 12.7, Eosinophils (%) (Auto) 0.8, Basophils (%) (Auto) 0.2, Neutrophils # (Auto ) 6.93, Lymphocytes # (Auto) 1.63, Monocytes # (Auto) 1.26, Eosinophils # (Auto ) 0.08, Basophils # (Auto) 0.02 07/16/17 08:30 Test 07/16/17 08:30 White Blood Count 9.95 K/uL (4.8-10.8) Red Blood Count 3.27 M/uL (4.2-5.4) Hemoglobin 9.1 g/dL (12.0-16.0) Hematocrit 28.3 % (37-47) Mean Corpuscular Volume 86.5 fL (80-100) Mean Corpuscular Hemoglobin 27.8 pg (25-34) Mean Corpuscular Hemoglobin Concent 32.2 g/dl (32-36) Platelet Count 240 K/uL (130-400) Mean Platelet Volume 8.9 fL (7.4-10.4) Neutrophils (%) (Auto) 69.6 % Lymphocytes (%) (Auto) 16.4 % Monocytes (%) (Auto) 12.7 % Eosinophils (%) (Auto) 0.8 % Basophils (%) (Auto) 0.2 % Neutrophils # (Auto) 6.93 K/uL (1.4-6.5) Lymphocytes # (Auto) 1.63 K/uL (1.2-3.4) Monocytes # (Auto) 1.26 K/uL (0.11-0.59) Eosinophils # (Auto) 0.08 K/uL (0-0.5) Basophils # (Auto) 0.02 K/uL (0-0.2) RDW Standard Deviation 46.3 fL (36.4-46.3) RDW Coefficient of Variation 14.7 % (11.5-14.5) Immature Granulocyte % (Auto) 0.3 % Immature Granulocyte # (Auto) 0.03 K/uL (0.00-0.02) Anion Gap 9.0 mmol/L (3-11) Est Creatinine Clear Calc Drug Dose 35.3 ml/min Estimated GFR () 59.1 Estimated GFR (Non- 51.0 BUN/Creatinine Ratio 22.9 (10-20) Calcium Level 9.1 mg/dl (8.5-10.1)
== END 2017-07-16 17:34 | DRG 253 ==
LOC: EDBD 18:54 → C.EDB 18:56 → C.4E 21:11 → ENRESERV 22:13 → EDBEDREQ 07-15 15:28 → ENRESERV 07-15 15:33 → C.2T 07-15 17:01
PROVIDERS: ADMIT Family Medicine; ATTEND Family Medicine
PROC: 047T3ZZ Dilation of Right Peroneal Artery, Percutaneous Approach (ICD-10-PCS; principal; 2017-07-15 13:00)
PROC: 047M3ZZ Dilation of Right Popliteal Artery, Percutaneous Approach (ICD-10-PCS; principal; 2017-07-15 13:00)
PROC: B41DZZZ Fluoroscopy of Aorta and Bilateral Lower Extremity Arteries (ICD-10-PCS; principal; 2017-07-15 13:00)
DX: I77.9 Disorder of arteries and arterioles, unspecified (principal); I70.235 Atherosclerosis of native arteries of right leg with ulceration of other part of foot; M86.8X7 Other osteomyelitis, ankle and foot; L03.115 Cellulitis of right lower limb; N18.3 Chronic kidney disease, stage 3 (moderate); L97.519 Non-pressure chronic ulcer of other part of right foot with unspecified severity; Z86.718 Personal history of other venous thrombosis and embolism; I12.9 Hypertensive chronic kidney disease with stage 1 through stage 4 chronic kidney disease, or unspecified chronic kidney disease; E78.5 Hyperlipidemia, unspecified; E03.9 Hypothyroidism, unspecified; M81.0 Age-related osteoporosis without current pathological fracture; Z86.73 Personal history of transient ischemic attack (TIA), and cerebral infarction without residual deficits; G20 Parkinson's disease; I48.91 Unspecified atrial fibrillation; E83.42 Hypomagnesemia; B96.5 Pseudomonas (aeruginosa) (mallei) (pseudomallei) as the cause of diseases classified elsewhere; Z95.0 Presence of cardiac pacemaker; D64.9 Anemia, unspecified; I73.9 Peripheral vascular disease, unspecified

== ENCOUNTER → 2017-07-23 | Outpatient (CLI) | payer OTHER ==
[~2017-07-23] MED LIST changes: +ACET-1311 PO; +ASPI81TA28 PO; +ATOR-22 PO; -DICL1GEL12 TOP; +LEVO1TAB35 PO; +MULT-116 PO; -MULTTAB58 PO; +VITAMIN B12 INJECT IM; -WARF2TAB8 PO
[2017-07-23 08:20] LABS: BASO % 0.3 %; BASO ABS # 0.03 K/uL (0-0.2); EOS % 2.7 %; HEMATOCRIT 26.7 % (37-47); IG% 0.8 %; LYMPH % 17.3 %; LYMPH ABS # 1.56 K/uL (1.2-3.4); MEAN CELL VOLUME 88.4 fL (80-100); MEAN CORPUSCULAR HEMOGLOBIN 28.8 pg (25-34); MEAN CORPUSCULAR HGB CONC 32.6 g/dl (32-36); MEAN PLATELET VOLUME 9.1 fL (7.4-10.4); NEUT % 67.9 %; PLATELET COUNT 326 K/uL (130-400); RED BLOOD COUNT 3.02 M/uL (4.2-5.4); WHITE BLOOD COUNT 9.03 K/uL (4.8-10.8)
[2017-07-23 08:30] LABS: ALT/SGPT 19 U/L (12-78); BLOOD UREA NITROGEN 36 mg/dl (7-18); BUN/CREATININE RATIO 29.8 (10-20); C-REACTIVE PROTEIN 1.18 mg/dl (0-0.29); CALCIUM 9.1 mg/dl (8.5-10.1); CARBON DIOXIDE 27 mmol/L (21-32); CHLORIDE 103 mmol/L (98-107); GLUCOSE 99 mg/dl (70-99); POTASSIUM 3.8 mmol/L (3.5-5.1); SODIUM 136 mmol/L (136-145)
[2017-07-23 08:33] LABS: ALB/GLOB RATIO 0.9 (0.9-2); ALKALINE PHOSPHATASE 79 U/L (45-117); AST/SGOT 17 U/L (15-37)
[2017-07-23 08:52] LABS: COMPLETE YES; POLYCHROMASIA 1+
== END ==
LOC: C.LABCC 08:01
PROVIDERS: ATTEND Internal Medicine
DX: M86.9 Osteomyelitis, unspecified (principal)

== ENCOUNTER → 2017-08-06 | Outpatient (CLI) | payer OTHER ==
[2017-08-06 08:20] LABS: BASO % 0.3 %; BASO ABS # 0.02 K/uL (0-0.2); EOS % 5.3 %; HEMATOCRIT 28.4 % (37-47); IG% 0.5 %; LYMPH % 20.3 %; MEAN CELL VOLUME 90.7 fL (80-100); MEAN CORPUSCULAR HEMOGLOBIN 28.4 pg (25-34); MEAN CORPUSCULAR HGB CONC 31.3 g/dl (32-36); MEAN PLATELET VOLUME 8.8 fL (7.4-10.4); MONO % 10.6 %; PLATELET COUNT 294 K/uL (130-400); RED BLOOD COUNT 3.13 M/uL (4.2-5.4)
[2017-08-06 08:48] LABS: ALT/SGPT 16 U/L (12-78); BLOOD UREA NITROGEN 29 mg/dl (7-18); BUN/CREATININE RATIO 30.9 (10-20); C-REACTIVE PROTEIN < 0.29 mg/dl (0-0.29); CARBON DIOXIDE 29 mmol/L (21-32); CHLORIDE 102 mmol/L (98-107); CREATININE 0.94 mg/dl (0.60-1.20); GLUCOSE 91 mg/dl (70-99); POTASSIUM 4.2 mmol/L (3.5-5.1); SODIUM 135 mmol/L (136-145)
[2017-08-06 08:51] LABS: ALKALINE PHOSPHATASE 66 U/L (45-117); AST/SGOT 17 U/L (15-37)
[2017-08-06 09:19] LABS: COMPLETE YES; HYPOCHROMIA PRESENT
== END ==
LOC: C.LABCC 08:00 → EDSTATUS 08-17 12:01
PROVIDERS: ATTEND Internal Medicine
DX: M86.9 Osteomyelitis, unspecified (principal)

== ENCOUNTER → 2017-08-11 | Outpatient (CLI) | payer OTHER ==
[~2017-08-11] MED LIST changes: +METR-163 PO
== END | disposition home or self-care (01) ==
LOC: C.RDSM 13:00
PROVIDERS: ATTEND Physical Medicine & Rehabilitation Sports Medicine
DX: L97.521 Non-pressure chronic ulcer of other part of left foot limited to breakdown of skin (principal)

== ENCOUNTER → 2017-08-13 | Outpatient (CLI) | payer OTHER ==
[~2017-08-13] MED LIST changes: -METR-163 PO
[2017-08-13 08:13] LABS: BASO % 0.5 %; BASO ABS # 0.03 K/uL (0-0.2); COMPLETE YES; EOS % 4.7 %; HEMATOCRIT 30.6 % (37-47); IG% 0.3 %; LYMPH % 22.9 %; LYMPH ABS # 1.36 K/uL (1.2-3.4); MEAN CELL VOLUME 91.3 fL (80-100); MEAN CORPUSCULAR HEMOGLOBIN 29.3 pg (25-34); MEAN PLATELET VOLUME 8.9 fL (7.4-10.4); MONO % 11.4 %; NEUT % 60.2 %; PLATELET COUNT 212 K/uL (130-400); RED BLOOD COUNT 3.35 M/uL (4.2-5.4); WHITE BLOOD COUNT 5.95 K/uL (4.8-10.8)
[2017-08-13 08:23] LABS: ALT/SGPT 18 U/L (12-78); BLOOD UREA NITROGEN 22 mg/dl (7-18); BUN/CREATININE RATIO 23.4 (10-20); C-REACTIVE PROTEIN < 0.29 mg/dl (0-0.29); CALCIUM 9.2 mg/dl (8.5-10.1); CARBON DIOXIDE 27 mmol/L (21-32); CHLORIDE 103 mmol/L (98-107); CREATININE 0.93 mg/dl (0.60-1.20); GLUCOSE 91 mg/dl (70-99); POTASSIUM 4.1 mmol/L (3.5-5.1); SODIUM 136 mmol/L (136-145)
[2017-08-13 08:25] LABS: ALKALINE PHOSPHATASE 69 U/L (45-117); AST/SGOT 17 U/L (15-37)
== END ==
LOC: C.LABCC 07:55 → EDSTATUS 08-17 12:06
DX: M86.9 Osteomyelitis, unspecified (principal)

== ENCOUNTER → 2017-08-25 | Outpatient (CLI) | payer OTHER ==
[~2017-08-25] MED LIST changes: -ASPI81TA28 PO; +METR-163 PO
== END ==
LOC: C.LABCC 08:43
PROVIDERS: ATTEND Internal Medicine
DX: R19.7 Diarrhea, unspecified (principal)

== ENCOUNTER → 2017-09-27 | Outpatient (CLI) | payer OTHER ==
[~2017-09-27] MED LIST changes: +CLR10 PO; +CYNI1000 IM; +LCTX PO; -LEVO1TAB35 PO; +POVI10SO38 TOP
[2017-09-27 09:05] LABS: BASO % 0.5 %; BASO ABS # 0.03 K/uL (0-0.2); COMPLETE YES; EOS % 3.3 %; IG% 0.3 %; LYMPH % 23.4 %; LYMPH ABS # 1.47 K/uL (1.2-3.4); MEAN CELL VOLUME 90.7 fL (80-100); MEAN CORPUSCULAR HEMOGLOBIN 30.1 pg (25-34); MEAN CORPUSCULAR HGB CONC 33.2 g/dl (32-36); MEAN PLATELET VOLUME 9.6 fL (7.4-10.4); MONO % 7.3 %; NEUT % 65.2 %; PLATELET COUNT 292 K/uL (130-400); RED BLOOD COUNT 4.08 M/uL (4.2-5.4); WHITE BLOOD COUNT 6.28 K/uL (4.8-10.8)
[2017-09-27 09:14] LABS: BLOOD UREA NITROGEN 39 mg/dl (7-18); BUN/CREATININE RATIO 36.3 (10-20); CALCIUM 10.3 mg/dl (8.5-10.1); CARBON DIOXIDE 29 mmol/L (21-32); CHLORIDE 97 mmol/L (98-107); CREATININE 1.08 mg/dl (0.60-1.20); GLUCOSE 146 mg/dl (70-99); POTASSIUM 3.7 mmol/L (3.5-5.1); SODIUM 135 mmol/L (136-145)
== END ==
LOC: C.LABCC 08:14
PROVIDERS: ATTEND Internal Medicine
DX: R53.83 Other fatigue (principal); D64.9 Anemia, unspecified

== ENCOUNTER 2017-09-28 20:38 | Emergency (ER) | payer OTHER ==
[~2017-09-28] VITALS: Ht 152.4 cm; Wt 54.7 kg
[~2017-09-28 20:38] MED LIST changes: -CLR10 PO; -CYNI1000 IM; -POVI10SO38 TOP
[2017-09-28 21:00] VITALS: TEMP 36.7; Ht 152.4 cm; Wt 54.7 kg
--- NOTE | 2017-09-28 21:23 | EMERGENCY ROOM VISIT NOTE ---
History Report prepared by Samuel: Ce Laura Under the Supervision of: Dr. Kadi Farr D.O. First contact with patient: 20:44 Stated Complaint: FOOT WOUND & RED History of Present Illness The patient is a 87 year old female who presents to the Emergency Room with complaints of a constant foot wound beginning today. The patient states that she intermittently has pain in her feet from multiple wounds on her toes and heel. Pt denies any additional or worsening pain tonight. Denies numbness/ tingling. Tonight she reports that her feet were more red than normal and staff members where she lives were concerned. The patient denies any fever and states staff is concerned that she may have a blood clot. She notes that she is in a wheelchair and does not walk on her feet often. She complains of back pain but she believes that is because she is laying flat. States she frequently has back pain and this isn't any different. The patient states that she does not have any pain with the wound on her left heel. She notes that she does have some swelling in her right foot. The patient states that she has had pressure ulcers before that she was treated for. Per [facility] records, pt with hx of PAD and is on plavix. Per EMR, pt with prior osteomyelitis on the right foot and prior angioplasty and stenting to the RLE. Source of History: patient Onset: today Position: foot (left) Quality: other (wound) Timing: constant Associated Symptoms: + back pain, No fevers Note: Pt complains of wounds on her heel and toes. Review of Systems See HPI for pertinent positives & negatives. A total of 10 systems reviewed and were otherwise negative. 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 (12) TIA (transient ischemic attack) Surgical Problems: (1) H/O colonoscopy (2) S/P laparotomy (3) S/P tonsillectomy and adenoidectomy Family History Cancer Heart disease Social History Smoking Status: Never Smoker Alcohol Use: none Drug Use: none Marital Status: Occupation Status: retired Current/Historical Medications Scheduled Acetaminophen Tab (Tylenol), 650 MG PO HS Atenolol (Tenormin), 75 MG PO BID Atorvastatin (Lipitor), 20 MG PO QPM Clopidogrel (Plavix), 75 MG PO DAILY Cyanocobalamin (Cyanocobalamin), 1 ML IM UD Ferrous Sulfate (Fe Tabs), 325 MG PO BID Fish Oil ([place]-3), 1 CAP PO DAILY Hctz/Lisinopril (Zestoretic 20MG/25MG), 1 TAB PO DAILY Lactobacillus Acidophilus (Lactinex), 1 TAB PO DAILY Levothyroxine Sodium (Levothyroxine Sodium), 100 MCG PO DAILY Loratadine (Claritin), 10 MG PO DAILY Povidone-Iodine (Betadine), 1 APPLN TOP DAILY Scheduled PRN Acetaminophen (Tylenol), 650 MG PO Q6H PRN for Pain or Fever Allergies Coded Allergies: Amoxicillin (Verified Allergy, Mild, RASH, 09/28/17) Physical Exam Vital Signs Date Time Temp Pulse Resp B/P (MAP) Pulse Ox O2 Delivery O2 Flow Rate FiO2 09/29/17 03:05 70 18 153/64 95 09/29/17 00:32 70 18 158/59 95 Room Air 09/28/17 21:00 36.7 60 18 153/67 Room Air Physical Exam GENERAL: alert, well appearing, well nourished, no distress, non-toxic EYE EXAM: normal conjunctiva, PERRL and EOM's grossly intact OROPHARYNX: no exudate, no erythema, lips, buccal mucosa, and tongue normal and mucous membranes are moist NECK: supple, no nuchal rigidity, no adenopathy, non-tender LUNGS: Clear to auscultation. Normal chest wall mechanics HEART: no murmurs, S1 normal and S2 normal ABDOMEN: abdomen soft, non-tender, normo-active bowel sounds, no masses, no rebound or guarding. BACK: Back is symmetrical on inspection and there is no deformity, no midline tenderness, no CVA tenderness. SKIN: no rashes and no bruising UPPER EXTREMITIES: upper extremities are grossly normal. LOWER EXTREMITIES: No pitting edema. erythema to her toes bilaterally, erythema along the left heel, diminished pulses bilaterally but present, right great toe with dressing in place from wound care earlier today, no calf tenderness, no joint effusions, no LE edema NEURO EXAM: Normal sensorium, cranial nerves II-XII grossly intact, normal speech, no gross weakness of arms, no gross weakness of legs. Medical Decision & Procedures ER Provider Diagnostic Interpretation: Radiology results have been interpreted by the radiologist and reviewed by me. US ARTERIAL LEFT LOWER EXT: Exam from 09/28/17 Diffuse artherosclerotic disease in the left lower extremity. Aparant occulsion in the poserior tibial artery, proximal to mid. Apparant occulsion in the anterior tibial artery, mid to distal segment High grade stenosis suggested in the distal popliteal artery in the peroneal artery. Laboratory Results 09/28/17 22:20 Red Blood Count 3.83, Mean Corpuscular Volume 90.3, Mean Corpuscular Hemoglobin 30.3, Mean Corpuscular Hemoglobin Concent 33.5, Mean Platelet Volume 9.2, Neutrophils (%) (Auto) 61.6, Lymphocytes (%) (Auto) 22.7, Monocytes (%) (Auto) 12.6, Eosinophils (%) (Auto) 2.4, Basophils (%) (Auto) 0.3, Neutrophils # (Auto ) 4.39, Lymphocytes # (Auto) 1.62, Monocytes # (Auto) 0.90, Eosinophils # (Auto ) 0.17, Basophils # (Auto) 0.02 09/28/17 22:20 Test 09/28/17 22:20 09/28/17 22:33 White Blood Count 7.13 K/uL (4.8-10.8) Red Blood Count 3.83 M/uL (4.2-5.4) Hemoglobin 11.6 g/dL (12.0-16.0) Hematocrit 34.6 % (37-47) Mean Corpuscular Volume 90.3 fL (80-100) Mean Corpuscular Hemoglobin 30.3 pg (25-34) Mean Corpuscular Hemoglobin Concent 33.5 g/dl (32-36) Platelet Count 246 K/uL (130-400) Mean Platelet Volume 9.2 fL (7.4-10.4) Neutrophils (%) (Auto) 61.6 % Lymphocytes (%) (Auto) 22.7 % Monocytes (%) (Auto) 12.6 % Eosinophils (%) (Auto) 2.4 % Basophils (%) (Auto) 0.3 % Neutrophils # (Auto) 4.39 K/uL (1.4-6.5) Lymphocytes # (Auto) 1.62 K/uL (1.2-3.4) Monocytes # (Auto) 0.90 K/uL (0.11-0.59) Eosinophils # (Auto) 0.17 K/uL (0-0.5) Basophils # (Auto) 0.02 K/uL (0-0.2) RDW Standard Deviation 46.2 fL (36.4-46.3) RDW Coefficient of Variation 13.9 % (11.5-14.5) Immature Granulocyte % (Auto) 0.4 % Immature Granulocyte # (Auto) 0.03 K/uL (0.00-0.02) Prothrombin Time 11.0 SECONDS (9.0-12.0) Prothromb Time International Ratio 1.0 (0.9-1.1) Anion Gap 7.0 mmol/L (3-11) Est Creatinine Clear Calc Drug Dose 29.9 ml/min Estimated GFR () 56.6 Estimated GFR (Non- 48.8 BUN/Creatinine Ratio 48.1 (10-20) Calcium Level 10.1 mg/dl (8.5-10.1) Bedside Lactic Acid Venous 1.18 mmol/L (0.90-1.70) Laboratory results per my review. Medications Administered Medications (Trade) Dose Ordered Sig/Fritz Route Start Time Stop Time Status Last Admin Dose Admin Sodium Chloride 500 ml @ 999 mls/hr Q31M STAT IV 09/28/17 23:13 09/28/17 23:43 DC 09/29/17 00:40 999 MLS/HR ED Course 2043: The patient was evaluated in room C9. A complete history and physical exam was performed. 2114: I discussed with Adria Patel RN and they are concerned with early infection and ulcer formation as she has previously had very rapid changes. They noted that her heel was not red last night and is now red. No changes in ambulatory status. 3: Sodium Chloride 500 ml @ 999 mls/hr IV. 0132: I reevaluated and updated the patient and family. It does seem that pt has any new acute change to her PAD warranting admission or emergency intervention at this time. Pt still has blood flow to her LE, no acute complete arterial occlusion. Doubt DVT given presentation and antiplatelet therapy. No hx of trauma. No change in labs to suggest evolving infection. 0141: Upon reevaluation, the patient is feeling better. I discussed the findings and the treatment plan with the patient. She verbalizes agreement and understanding. The patient was discharged home. Medical Decision Differential diagnosis includes acute arterial occlusion, pressure ulcer, osteomyelitis, contusion, fracture, cellulitis. Pt with chronic PAD on antiplatelet therapy. No evidence of infection, doubt osteo or nec fasc of left heel/foot. Pt with palpable LE pulses, diminished but present. No hx of trauma. Doubt dvt. No evidence of septic arthritis. Erythema noted to pt's left heel appears most consistent with early pressure ulcer formation. No skin breakdown or ulceration yet. Area not tender to palpation. Discussed with pt and family continued meds, f/u with PCP and with vascular surgery to discuss, continued close monitoring of feet/LE given recent hx of osteo. Discussed sx to watch/return for, she and family verbalized understanding and were agreeable with plan. Medication Reconcilliation Current Medication List: was personally reviewed by me Blood Pressure Screening Patient's blood pressure: Elevated blood pressure Blood pressure disposition: Elevated BP felt to be situational Impression Primary Impression: PAD (peripheral artery disease) Additional Impression: Pressure ulcer, heel, left, unstageable Scribe Attestation The scribe's documentation has been prepared under my direction and personally reviewed by me in its entirety. I confirm that the note above accurately reflects all work, treatment, procedures, and medical decision making performed by me. Departure Information Dispostion Home / Self-Care Referrals Jorge Aggarwal (PCP) Additional Instructions Please continue all of her usual medications. Please continue your follow-up with the wound care clinic regarding her right big toe wound. Please always wear the foot cushions when you are in bed and avoid any trauma to your feet. Please follow up with the vascular surgeon, Dr. Lopez, regarding your peripheral arterial disease. Please continue taking your Plavix daily. If you develop discoloration of the foot, worsening redness to the left heel, have numbness or tingling, the foot feels cold, you develop pain in the left heel or foot, are unable to walk, you develop swelling in the legs, or you have any other new concerns, please return the emergency room. Problem Qualifiers
[2017-09-28 22:39] LABS: BASO % 0.3 %; BASO ABS # 0.02 K/uL (0-0.2); COMPLETE YES; EOS % 2.4 %; HEMATOCRIT 34.6 % (37-47); IG% 0.4 %; LYMPH % 22.7 %; LYMPH ABS # 1.62 K/uL (1.2-3.4); MEAN CELL VOLUME 90.3 fL (80-100); MEAN CORPUSCULAR HEMOGLOBIN 30.3 pg (25-34); MEAN CORPUSCULAR HGB CONC 33.5 g/dl (32-36); MEAN PLATELET VOLUME 9.2 fL (7.4-10.4); MONO % 12.6 %; NEUT % 61.6 %; PLATELET COUNT 246 K/uL (130-400); RED BLOOD COUNT 3.83 M/uL (4.2-5.4); WHITE BLOOD COUNT 7.13 K/uL (4.8-10.8)
[2017-09-28 22:57] LABS: BUN/CREATININE RATIO 48.1 (10-20); CALCIUM 10.1 mg/dl (8.5-10.1); CREATININE 1.03 mg/dl (0.60-1.20); POTASSIUM 4.1 mmol/L (3.5-5.1)
[2017-09-28] MEDS ORDERED: SODIUM CHLORIDE 0.9% 500ML 500 ML IV STA (23:13)
[2017-09-29] MEDS ORDERED: ATOR-22 PO (00:01)
[2017-09-29] MEDS ORDERED: CLR10 PO (00:01)
[2017-09-29] MEDS ORDERED: POVI10SO38 TOP (00:03)
[2017-09-29] MEDS ORDERED: CYNI1000 IM (00:06)
[2017-09-29 03:05] VITALS: BP 153/64; PULSE 70; O2SAT 95
--- NOTE | 2017-09-29 06:48 | DIAGNOSTIC IMAGING REPORT ---
LEFT LOWER EXTREMITY ARTERIAL DOPPLER ULTRASOUND CLINICAL HISTORY: increased erythema, hx PAD COMPARISON STUDY: No previous studies for comparison. FINDINGS: The left ankle to brachial index measured 1.01 when using posterior tibial artery and 0.98 when using the dorsalis pedis. There is extensive atherosclerotic plaque within the left lower extremity. There is biphasic flow within the left common femoral and superficial femoral arteries. There is monophasic flow within the left popliteal artery. An elevated velocity of 244 cm/second within the left peroneal artery suggests a hemodynamically significant stenosis. An elevated velocity of 207 cm/s within the distal left popliteal artery suggesting an additional stenosis. There is apparent occlusion of the proximal to mid aspect of the posterior tibial artery with distal reconstitution. There is apparent occlusion of the left anterior tibial artery within the mid to distal aspect. There is monophasic flow within the left dorsalis pedis. IMPRESSION: 1. Extensive atherosclerotic plaque within the left lower extremity with findings suggestive of hemodynamically significant stenoses within the distal left popliteal and left peroneal arteries. 2. Probable occlusion of the proximal to mid left posterior tibial artery and the mid to distal left anterior tibial artery with distal reconstitution although flow is dampened and monophasic. Electronically signed by: Sebastián Hernandez M.D. 09/29/2017 6:47 AM Dictated Date/Time: 09/29/2017 6:42 AM
== END 2017-09-29 06:00 | disposition home or self-care (01) ==
LOC: EDBD 20:38 → C.EDC 20:41 → C.EDA 09-29 06:00
DX: I73.9 Peripheral vascular disease, unspecified (principal); L89.620 Pressure ulcer of left heel, unstageable; I12.9 Hypertensive chronic kidney disease with stage 1 through stage 4 chronic kidney disease, or unspecified chronic kidney disease; N18.3 Chronic kidney disease, stage 3 (moderate); E78.5 Hyperlipidemia, unspecified; E03.9 Hypothyroidism, unspecified; M81.0 Age-related osteoporosis without current pathological fracture; G20 Parkinson's disease; Z86.718 Personal history of other venous thrombosis and embolism; Z86.73 Personal history of transient ischemic attack (TIA), and cerebral infarction without residual deficits; Z95.0 Presence of cardiac pacemaker; Z90.89 Acquired absence of other organs; Z98.890 Other specified postprocedural states; Z79.02 Long term (current) use of antithrombotics/antiplatelets; Z79.899 Other long term (current) drug therapy

== ENCOUNTER → 2017-10-29 | Outpatient (CLI) | payer OTHER ==
[~2017-10-29] MED LIST changes: -CALC500C70 PO; -CHOL1000 PO; +CLR10 PO; +CYNI1000 IM; -METR-163 PO; -MULT-116 PO; +POVI10SO38 TOP; -RSTOPS OP; -VITAMIN B12 INJECT IM
== END ==
LOC: C.LABCC 17:08
PROVIDERS: ATTEND Internal Medicine
DX: Z09 Encounter for follow-up examination after completed treatment for conditions other than malignant neoplasm (principal); A04.72 Enterocolitis due to Clostridium difficile, not specified as recurrent

== ENCOUNTER → 2017-11-09 | Outpatient (CLI) | payer OTHER | LOC: C.LABCC 09:11 | PROVIDERS: ATTEND Internal Medicine | DX: R19.5 Other fecal abnormalities (principal) ==

== ENCOUNTER → 2017-12-09 | Outpatient (CLI) | payer OTHER ==
[~2017-12-09] MED LIST changes: +VANC5CAP PO
== END | disposition home or self-care (01) ==
LOC: C.LABCC 09:00
PROVIDERS: ATTEND Internal Medicine
DX: E03.9 Hypothyroidism, unspecified (principal)

== ENCOUNTER → 2018-01-24 | Outpatient (CLI) | payer OTHER ==
[~2018-01-24] MED LIST changes: +ACET-1693 PO; -ACET325T96 PO
== END ==
LOC: C.LABCC 09:00
PROVIDERS: ATTEND Internal Medicine
DX: E03.9 Hypothyroidism, unspecified (principal)

== ENCOUNTER → 2018-02-24 | Outpatient (CLI) | payer OTHER ==
[~2018-02-24] MED LIST changes: -VANC5CAP PO
== END ==
LOC: C.LABCC 07:54
PROVIDERS: ATTEND Internal Medicine
DX: E78.5 Hyperlipidemia, unspecified (principal)

== ENCOUNTER → 2018-03-02 | Outpatient (CLI) | payer OTHER ==
[2018-03-02 08:52] LABS: BLOOD UREA NITROGEN 32 mg/dl (7-18); CALCIUM 9.7 mg/dl (8.5-10.1); CARBON DIOXIDE 28 mmol/L (21-32); CREATININE 1.03 mg/dl (0.60-1.20); GLUCOSE 96 mg/dl (70-99); POTASSIUM 3.4 mmol/L (3.5-5.1); SODIUM 139 mmol/L (136-145)
== END ==
LOC: C.LABCC 08:34
PROVIDERS: ATTEND Internal Medicine
DX: M86.00 Acute hematogenous osteomyelitis, unspecified site (principal); Z79.2 Long term (current) use of antibiotics

== ENCOUNTER → 2018-03-15 | Outpatient (CLI) | payer OTHER ==
[2018-03-15 09:02] LABS: CREATININE 0.83 mg/dl (0.60-1.20)
== END ==
LOC: C.LABCC 08:26
PROVIDERS: ATTEND Internal Medicine
DX: Z79.2 Long term (current) use of antibiotics (principal)

== ENCOUNTER → 2018-03-22 | Outpatient (CLI) | payer OTHER ==
[~2018-03-22] MED LIST changes: +CEFE1INJ3 IV
== END ==
LOC: C.LABCC 08:35
PROVIDERS: ATTEND Internal Medicine
DX: E03.9 Hypothyroidism, unspecified (principal)

== ENCOUNTER → 2018-06-13 | Outpatient (CLI) | payer OTHER ==
[~2018-06-13] MED LIST changes: +CALC500T67; +FLUT0.15; +LISI20TA10 PO; -LSN/2025 PO; +VALA500T60 PO
[2018-06-13 09:57] LABS: BASO ABS # 0.05 K/uL (0-0.2); EOS ABS # 0.35 K/uL (0-0.5); HEMATOCRIT 33.5 % (37-47); HEMOGLOBIN 11.7 g/dL (12.0-16.0); IG# 0.01 K/uL (0.00-0.02); LYMPH % 23.3 %; LYMPH ABS # 1.17 K/uL (1.2-3.4); MEAN CELL VOLUME 88.4 fL (80-100); MEAN CORPUSCULAR HEMOGLOBIN 30.9 pg (25-34); MEAN CORPUSCULAR HGB CONC 34.9 g/dl (32-36); MEAN PLATELET VOLUME 10.1 fL (7.4-10.4); MONO % 13.5 %; MONO ABS # 0.68 K/uL (0.11-0.59); NEUT ABS # 2.76 K/uL (1.4-6.5); PLATELET COUNT 169 K/uL (130-400); WHITE BLOOD COUNT 5.02 K/uL (4.8-10.8)
[2018-06-13 10:13] LABS: ALBUMIN 3.4 gm/dl (3.4-5.0); ALKALINE PHOSPHATASE 80 U/L (45-117); ALT/SGPT 34 U/L (12-78); AST/SGOT 26 U/L (15-37); BLOOD UREA NITROGEN 46 mg/dl (7-18); CALCIUM 9.6 mg/dl (8.5-10.1); CARBON DIOXIDE 27 mmol/L (21-32); CREATININE 0.96 mg/dl (0.60-1.20); GLUCOSE 99 mg/dl (70-99); POTASSIUM 3.5 mmol/L (3.5-5.1); SODIUM 137 mmol/L (136-145); TOTAL PROTEIN 6.5 gm/dl (6.4-8.2)
== END | disposition home or self-care (01) ==
LOC: C.LABCC 08:05
PROVIDERS: ATTEND Internal Medicine
DX: E78.5 Hyperlipidemia, unspecified (principal); N18.9 Chronic kidney disease, unspecified; D64.9 Anemia, unspecified; M81.0 Age-related osteoporosis without current pathological fracture

== ENCOUNTER → 2018-06-28 | Outpatient (CLI) | payer OTHER ==
[~2018-06-28] MED LIST changes: -CEFE1INJ3 IV
[2018-06-28 10:02] LABS: BASO % 0.8 %; BASO ABS # 0.04 K/uL (0-0.2); EOS ABS # 0.32 K/uL (0-0.5); HEMATOCRIT 34.5 % (37-47); HEMOGLOBIN 11.5 g/dL (12.0-16.0); IG# 0.02 K/uL (0.00-0.02); LYMPH % 24.9 %; LYMPH ABS # 1.32 K/uL (1.2-3.4); MEAN CELL VOLUME 90.8 fL (80-100); MEAN CORPUSCULAR HEMOGLOBIN 30.3 pg (25-34); MEAN CORPUSCULAR HGB CONC 33.3 g/dl (32-36); MONO % 13.7 %; MONO ABS # 0.73 K/uL (0.11-0.59); NEUT % 54.2 %; NEUT ABS # 2.88 K/uL (1.4-6.5); PLATELET COUNT 191 K/uL (130-400); RED CELL DISTRIBUTION WIDTH CV 14.7 % (11.5-14.5); WHITE BLOOD COUNT 5.31 K/uL (4.8-10.8)
[2018-06-28 10:07] LABS: BLOOD UREA NITROGEN 46 mg/dl (7-18); CALCIUM 10.2 mg/dl (8.5-10.1); CARBON DIOXIDE 32 mmol/L (21-32); CREATININE 0.94 mg/dl (0.60-1.20); GLUCOSE 100 mg/dl (70-99); POTASSIUM 3.7 mmol/L (3.5-5.1); SODIUM 139 mmol/L (136-145)
== END ==
LOC: C.LABCC 08:46
PROVIDERS: ATTEND Internal Medicine
DX: N18.9 Chronic kidney disease, unspecified (principal); D64.9 Anemia, unspecified; E87.0 Hyperosmolality and hypernatremia

== ENCOUNTER 2019-06-21 22:10 | Inpatient (IN) ==
[2019-06-21] MEDS ORDERED: SODIUM CHLORIDE 0.9% 1000ML 1,000 ML IV ONE ×2 (22:27→22:33)
[2019-06-21] MEDS ORDERED: DAPTOMYCIN IV ONE (22:32)
[2019-06-21] MEDS ORDERED: AZTREONAM 2,000 MG in DEXTROSE 5% 100 ML IV STA (22:32)
--- NOTE | 2019-06-21 22:52 | XRay Report ---
XR chest 1V portable HISTORY: Sepsis COMPARISON: Chest 05/08/2019. FINDINGS: No pneumothorax. 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 The heart remains enlarg ed. Retrocardiac density consistent with a large hiatus hernia. This is also unchanged. Calcified gra nuloma within the right midlung zone. Mild central pulmonary vascular congestion without overt edema. Small bilateral pleural effusions persist. Advanced degenerative changes within the shoulders. IMPRESSION: No change in the cardiomegaly, small bilateral pleural effusions, and mild central pulmonary vascular congestion. Electronically signed by: Alli Zamudio M.D. 06/21/2019 10:51 PM
[2019-06-21 23:00] LABS: Appearance Urine Turbid (Clear); Bacteria Urine Automated 4+ (Negative); Bilirubin Urine Negative (Negative); Blood Urine 2+ (Negative); Color Urine Dark Yellow; Glucose Urine UA Negative (Negative); Ketones Urine Negative (Negative); Leukocyte Esterase Urine 3+ (Negative); Nitrite Urine Negative (Negative); Protein Urine 2+ (Negative); Specific Gravity Urine 1.017 (1.000-1.030); Urobilinogen Urine Negative (Negative); WBC Urine Automated >30 /hpf (0-5); pH Urine 5.5 (4.5-7.5)
[2019-06-21 23:14] LABS: RBC Urine Automated 0-4 /hpf (0-4)
[2019-06-21 23:15] LABS: Cast Urine Automated 0 /lpf (0-5)
[2019-06-21] MEDS ORDERED: ACETAMINOPHEN 500 MG TAB PO STA (23:36)
[2019-06-21 23:39] LABS: Hematocrit (blood only) 33.7 % (37-47); Mean Corpuscular Hgb Conc 32.6 g/dL (32-36); Mean Corpuscular Volume 89.6 fL (80-100); Mean Platelet Volume 9.5 fL (7.4-10.4); Platelet Count 184 K/uL (130-400); RDW Coefficient of Variation 15.5 % (11.5-14.5); RDW Standard Deviation 50.5 fL (36.4-46.3); Red Blood Count 3.76 M/uL (4.2-5.4); White Blood Count 13.09 K/uL (4.8-10.8)
--- NOTE | 2019-06-21 23:48 | Emergency Department Note ---
ED Visit Note Physician Evaluation Note: I have personally evaluated and examined this patient. I agree with assessment and plan of Rocio Irving PA-C. Elderly frail female from local nursing facility She is confused and dehydrated by exam. UTI with fever and mild hypotensive consistent with sepsis. Fluids and abx already going. BP starting to improve. Family on board with treatment plan. Michael Wiley MD
[2019-06-21 23:50] LABS: INR 1.5 (0.9-1.1); Partial Thromboplastin Ratio 1.4; Partial Thromboplastin Time 38.2 Seconds (21.0-31.0); Prothrombin Time 15.2 Seconds (9.0-12.0)
[2019-06-21 23:59] LABS: Alanine Aminotransferase 20 U/L (12-78); Albumin Level 2.5 gm/dl (3.4-5.0); Aspartate Aminotransferase 16 U/L (15-37); BUN Creatinine Ratio 30.4 (10-20); Blood Urea Nitrogen 40 mg/dl (7-18); Calcium 8.4 mg/dl (8.5-10.1); Carbon Dioxide 27 mmol/L (21-32); Chloride 110 mmol/L (98-107); Est GFR (African American) 41.6; Est GFR (Non-African American) 35.9; Glucose 132 mg/dl (70-99); Potassium 2.9 mmol/L (3.5-5.1); Sodium 144 mmol/L (136-145)
[2019-06-22] MEDS ORDERED: POTASSIUM CHLORIDE 20 MEQ/15 ML UDC PO STA (00:03)
[2019-06-22] MEDS ORDERED: POTASSIUM ACETATE 10 MEQ in 0.9 % SODIUM CHLORIDE 100 ML IV ONE (00:03)
--- NOTE | 2019-06-22 00:03 | Emergency Department Note ---
History of Present Illness General Chief complaint: Illness Stated complaint: AMS History of Present Illness Maximum Pain Intensity: 0 This 88-year-old presents to the ER complaining of fatigue and fever Location: Generalized Quality: Weak Severity: Moderate Duration: Today Timing: Today Context: Family was concerned and sent the patient in Modifying factors: better with rest; worse with activity Patient denies recent antibiotics, chest pain, dyspnea, abdominal pain, vomiti ng, diarrhea, cough, congestion. Patient is at a senior living. She ambulates with a walker. She started feeling sick today. She is on Eliquis for A. fib. She received Tylenol at 7:00 tonight. Home Medications Home Medications Medication Instructions Recorded Confirmed Type acetaminophen 325 mg capsule 650 mg PO HS PRN 07/11/18 06/21/19 History acetaminophen 325 mg capsule 650 mg PO Q6H PRN cap 07/11/18 06/21/19 History atenolol 25 mg tablet 75 mg PO BID tab 07/11/18 06/21/19 History atorvastatin 20 mg tablet 20 mg PO QPM tab 07/11/18 06/21/19 History calcium carbonate 500 mg calcium 500 mg PO BID tab 07/11/18 06/21/19 History (1,250 mg) tablet clopidogrel 75 mg tablet 75 mg PO DAILY tab 07/11/18 06/21/19 History cyanocobalamin (vit B-12) 1,000 100 mcg IM .q 2 months ea 07/11/18 06/21/19 H istory mcg/mL injection kit ferrous sulfate 325 mg (65 mg 325 mg PO BID tab 07/11/18 06/21/19 History iron) tablet lisinopril 20 1 tab PO DAILY 07/11/18 06/21/19 History mg-hydrochlorothiazide 25 mg tablet loratadine 10 mg tablet 10 mg PO DAILY 07/11/18 06/21/19 History omega [id number]-wfq-[id number]-fish oil 100 1 cap PO DAILY cap 07/11/18 06/21/19 History mg-160 mg-1,000 mg capsule levothyroxine 88 mcg capsule 88 mcg PO DAILY 07/20/18 06/21/19 History Fleet Enema 1 dose MI DIRECTED PRN 06/21/19 06/21/19 History apixaban [Eliquis] 2.5 mg PO BID 06/21/19 06/21/19 History ascorbic acid (vitamin C) [Vitamin 250 mg PO BID 06/21/19 06/21/19 History C] azelastine 1 spray INTRANASAL BID 06/21/19 06/21/19 History bisacodyl [Dulcolax (bisacodyl)] 10 mg MI DIRECTED PRN 06/21/19 06/21/19 History cholecalciferol (vitamin D3) 1,000 unit PO DAILY 06/21/19 06/21/19 History [Vitamin D3] cyclosporine [Restasis] 1 drp OPHTHALMIC (EYE) Q12H 06/21/19 06/21/19 History magnesium hydroxide [Milk of 30 ml PO DIRECTED PRN 06/21/19 06/21/19 History Magnesia] multivitamin,[id number] 1 tab PO DAILY 06/21/19 06/21/19 History [Therems-M] sodium chloride [Saline Nasal] 2 spray INTRANASAL DAILY PRN 06/21/19 06/21/19 History Allergies Allergy/AdvReac Type Severity Reaction Status Date / Time amoxicillin Allergy Mild RASH Verified 06/21/19 23:07 Past Med/Surg History Medical History A-fib Born in [facility] (Chronic) Chronic kidney disease (Chronic) DVT (deep venous thrombosis) (Chronic) Dyslipidemia (Chronic) Encounter for colonoscopy due to history of adenomatous colonic polyps (Chronic) Exploratory laparotomy scar (Chronic) HTN (hypertension) (Chronic) Hypothyroid (Chronic) Osteoporosis (Chronic) Parkinson disease (Chronic) TIA (transient ischemic attack) (Chronic) Surgical History History of tonsillectomy and adenoidectomy (Chronic) Social History Feels Safe at Home: Yes Smoking Status: Unknown if ever smoked Review of Systems All systems reviewed & are unremarkable except as noted in HPI & below Physical Exam Vital Signs Vital Signs - 24 hr 06/21/19 22:15 06/21/19 22:19 06/21/19 22:21 Temperature 37.1 C Temperature Source Oral Sepsis Recent Fever Within 48 Hours No Sepsis New/Unexplained Change in Mental Status Yes Sepsis Action Taken by Nursing No Action Required Pulse Rate 74 72 71 Pulse Rate [Finger] 71 Pulse Rate from SpO2 Sensor Respiratory Rate 21 27 H 14 Respiratory Effort / Characteristics Respiratory Depth Respiratory Pattern Blood Pressure 95/56 L 95/65 L Blood Pressure [Right Arm] 95/65 L Blood Pressure Mean 69 75 Blood Pressure Mean [Right Arm] 75 Blood Pressure Position [Right Arm] Pulse Oximetry 92 Oxygen Delivery Method Room Air 06/21/19 22:30 06/21/19 22:31 06/21/19 22:44 Temperature 38.1 C H Temperature Source Rectal Sepsis Recent Fever Within 48 Hours Sepsis New/Unexplained Change in Mental Status Sepsis Action Taken by Nursing Pulse Rate 75 75 Pulse Rate [Finger] Pulse Rate from SpO2 Sensor 73 75 Respiratory Rate 28 H 25 H Respiratory Effort / Characteristics Respiratory Depth Respiratory Pattern Blood Pressure 96/42 L Blood Pressure [Right Arm] Blood Pressure Mean 60 Blood Pressure Mean [Right Arm] Blood Pressure Position [Right Arm] Pulse Oximetry 92 92 Oxygen Delivery Method 06/21/19 22:45 06/21/19 23:00 06/21/19 23:15 Temperature Temperature Source Sepsis Recent Fever Within 48 Hours Sepsis New/Unexplained Change in Mental Status Sepsis Action Taken by Nursing Pulse Rate 76 74 73 Pulse Rate [Finger] Pulse Rate from SpO2 Sensor 77 72 72 Respiratory Rate 21 28 H 26 H Respiratory Effort / Characteristics Respiratory Depth Respiratory Pattern Blood Pressure 95/46 L 105/50 L 101/42 L Blood Pressure [Right Arm] Blood Pressure Mean 62 68 61 Blood Pressure Mean [Right Arm] Blood Pressure Position [Right Arm] Pulse Oximetry 94 91 93 Oxygen Delivery Method 06/21/19 23:18 06/21/19 23:30 06/21/19 23:45 Temperature Temperature Source Sepsis Recent Fever Within 48 Hours Sepsis New/Unexplained Change in Mental Status Sepsis Action Taken by Nursing Pulse Rate 72 71 Pulse Rate [Finger] 70 Pulse Rate from SpO2 Sensor 70 72 Respiratory Rate 16 25 H 24 Respiratory Effort / Characteristics Non-Labored Spontaneous Respiratory Depth Normal Respiratory Pattern Regular Blood Pressure 103/54 L 116/53 L Blood Pressure [Right Arm] 101/42 L Blood Pressure Mean 70 74 Blood Pressure Mean [Right Arm] 61 Blood Pressure Position [Right Arm] Lying Pulse Oximetry 93 94 94 Oxygen Delivery Method Room Air 06/22/19 00:33 06/22/19 00:47 06/22/19 01:00 Temperature Temperature Source Sepsis Recent Fever Within 48 Hours Sepsis New/Unexplained Change in Mental Status Sepsis Action Taken by Nursing Pulse Rate 72 76 69 Pulse Rate [Finger] Pulse Rate from SpO2 Sensor 78 72 Respiratory Rate 28 H 26 H Respiratory Effort / Characteristics Respiratory Depth Respiratory Pattern Blood Pressure 98/66 L 103/71 Blood Pressure [Right Arm] Blood Pressure Mean 76 81 Blood Pressure Mean [Right Arm] Blood Pressure Position [Right Arm] Pulse Oximetry 95 92 Oxygen Delivery Method Room Air 06/22/19 01:30 06/22/19 02:00 06/22/19 02:02 Temperature Temperature Source Sepsis Recent Fever Within 48 Hours Sepsis New/Unexplained Change in Mental Status Sepsis Action Taken by Nursing Pulse Rate 65 69 64 Pulse Rate [Finger] Pulse Rate from SpO2 Sensor 65 66 65 Respiratory Rate 26 H 24 23 Respiratory Effort / Characteristics Respiratory Depth Respiratory Pattern Blood Pressure 92/49 L 79/47 L 85/47 L Blood Pressure [Right Arm] Blood Pressure Mean 63 57 59 Blood Pressure Mean [Right Arm] Blood Pressure Position [Right Arm] Pulse Oximetry 94 95 93 Oxygen Delivery Method 06/22/19 02:30 Temperature Temperature Source Sepsis Recent Fever Within 48 Hours Sepsis New/Unexplained Change in Mental Status Sepsis Action Taken by Nursing Pulse Rate 65 Pulse Rate [Finger] Pulse Rate from SpO2 Sensor 66 Respiratory Rate 24 Respiratory Effort / Characteristics Respiratory Depth Respiratory Pattern Blood Pressure 95/42 L Blood Pressure [Right Arm] Blood Pressure Mean 59 Blood Pressure Mean [Right Arm] Blood Pressure Position [Right Arm] Pulse Oximetry 96 Oxygen Delivery Method VITALS: Vitals are noted on the nurse's note and reviewed by myself. Vital signs hypertensive and febrile. GENERAL: Ill-appearing elderly white female, mildly dehydrated appearing SKIN: The skin was without rashes or bruising. There is no tenting of the skin. Capillary reflex less than 2 seconds. HEAD: Normocephalic atraumatic. EARS: External auditory canals clear, tympanic membranes pearly hammer without erythema or effusion bilaterally. EYES: Pupils equal round and reactive to light and accommodation. Conjunctivae without injection, sclerae without icterus. Extraocular movements intact. NOSE: Patent, turbinates without inflammation or discharge. No sinus tenderness. MOUTH: Mucous membranes mildly dry. Pharynx without erythema or exudate. Uvula midline. Airway patent. Tongue does not deviate. NECK: Supple without nuchal rigidity. No lymphadenopathy. No thyromegaly. Cervical spine is nontender. No JVD. HEART: Irregularly irregular LUNGS: Clear to auscultation bilaterally without wheezes, rales or rhonchi. No retractions or accessory muscle use. ABDOMEN: Positive bowel sounds x 4. Normal tympanic percussion. Soft, nontender, without masses or organomegaly. Holley sign negative. No guarding or rebound tenderness. No CVA tenderness MUSCULOSKELETAL: No muscle atrophy, noted. Right lower leg slightly more edematous than the left. Mild erythema present around a healing abrasion to the distal tib-fib region NEURO: Patient was alert and oriented to person place and time. Normal sensation to light and sharp touch. No focal neurological deficits. Course Administered Medications Discontinued Medications Acetaminophen (Tylenol) 1,000 mg PO NOW STA Stop: 06/21/19 23:37 Last Admin: 06/21/19 23:47 Dose: 1,000 mg Documented by: [id number] Sodium Chloride (Nss 1000ml) 1,000 mls @ 999 mls/hr IV .Q1H1M ONE Stop: 06/21/19 23:27 Last Infusion: 06/21/19 23:50 Dose: 0 mls/hr Documented by: [id number] Admin: 06/21/19 22:54 Dose: 999 mls/hr Documented by: [id number] Daptomycin 365 mg/ Syringe 7.3 mls @ 3.65 mls/min IV NOW ONE; Protocol Stop: 06/21/19 22:33 Last Admin: 06/21/19 23:48 Dose: 3.65 mls/min Documented by: [id number] Aztreonam 2,000 mg/ Dextrose 110 mls @ 100 mls/hr IV NOW STA; Protocol Stop: 06/21/19 23:37 Last Infusion: 06/22/19 00:55 Dose: 0 mls/hr Documented by: [id number] Admin: 06/21/19 23:48 Dose: 100 mls/hr Documented by: [id number] Sodium Chloride (Nss 1000ml) 1,000 mls @ 800 mls/hr IV .Q1H15M ONE Stop: 06/21/19 23:47 Last Infusion: 06/22/19 01:14 Dose: 0 mls/hr Documented by: [id number] Admin: 06/21/19 23:50 Dose: 800 mls/hr Documented by: [id number] Potassium Acetate 10 meq/ (Sodium Chloride) 105 mls @ 105 mls/hr IV Q1H ONE Stop: 06/22/19 01:02 Last Infusion: 06/22/19 01:57 Dose: 0 mls/hr Documented by: [id number] Admin: 06/22/19 00:50 Dose: 105 mls/hr Documented by: [id number] Potassium Chloride (Ashley Ciel Elix) 40 meq PO NOW STA Stop: 06/22/19 00:04 Last Admin: 06/22/19 00:29 Dose: 40 meq Documented by: [id number] Medical Decision Making Medical Records Attestation: I reviewed the patient's medical records. Home Medications Current Medication List: was personally reviewed by me Laboratory Data Attestation: I reviewed the patient's lab results. Result diagrams: 06/21/19 23:22 06/21/19 23:22 Lab Results 06/21/19 06/21/19 06/21/19 Range/Units 22:40 23:22 23:22 WBC 13.09 H (4.8-10.8) K/uL RBC 3.76 L (4.2-5.4) M/uL Hgb 11.0 L (12.0-16.0) g/dL Hct 33.7 L (37-47) % MCV 89.6 (80-100) fL MCH 29.3 (25-34) pg MCHC 32.6 (32-36) g/dL RDW Std Deviation 50.5 H (36.4-46.3) fL RDW Coeff of Stephani 15.5 H (11.5-14.5) % Plt Count 184 (130-400) K/uL MPV 9.5 (7.4-10.4) fL Immature Gran % (Auto) 0.9 % Neut % (Auto) 86.7 % Lymph % (Auto) 5.5 % [place] % (Auto) 6.8 % Eos % (Auto) 0.0 % Baso % (Auto) 0.1 % Immature Gran # (Auto) 0.12 H (0.00-0.02) K/uL Neut # (Auto) 11.35 H (1.4-6.5) K/uL Lymph # (Auto) 0.72 L (1.2-3.4) K/uL [place] # (Auto) 0.89 H (0.11-0.59) K/uL Eos # (Auto) 0.00 (0-0.5) K/uL Baso # (Auto) 0.01 (0-0.2) K/uL RBC Morphology Unremarkable PT 15.2 H (9.0-12.0) Seconds INR 1.5 H (0.9-1.1) APTT 38.2 H (21.0-31.0) Seconds PTT Ratio 1.4 Sodium (136-145) mmol/L Potassium (3.5-5.1) mmol/L Chloride (98-107) mmol/L Carbon Dioxide (21-32) mmol/L Anion Gap (3-11) BUN (7-18) mg/dl Creatinine (0.6-1.2) mg/dl Est Cr Clr Drug Dosing Est GFR ( Amer) Est GFR (Non-Af Amer) BUN/Creatinine Ratio (10-20) Glucose (70-99) mg/dl Lactate (0.4-2.0) mmol/L Calcium (8.5-10.1) mg/dl Magnesium (1.8-2.4) mg/dl Total Bilirubin (0.2-1) mg/dl AST (15-37) U/L ALT (12-78) U/L Alkaline Phosphatase (45-117) U/L Total Creatine Kinase (26-192) U/L Troponin I (0-0.045) ng/ml Total Protein (6.4-8.2) gm/dl Albumin (3.4-5.0) gm/dl Globulin (2.5-4.0) gm/dl Albumin/Globulin Ratio (0.9-2) TSH (0.300-4.500) uIu/ml Free T4 (0.8-1.6) ng/dl Urine Color Dark Yellow Urine Appearance Turbid A (Clear) Urine pH 5.5 (4.5-7.5) Ur Specific [place] 1.017 (1.000-1.030) Urine Protein 2+ H (Negative) Urine Glucose (UA) Negative (Negative) Urine Ketones Negative (Negative) Urine Blood 2+ H (Negative) Urine Nitrite Negative (Negative) Urine Bilirubin Negative (Negative) Urine Urobilinogen Negative (Negative) Ur Leukocyte Esterase 3+ H (Negative) Urine WBC (Auto) >30 H (0-5) /hpf Urine RBC (Auto) 0-4 (0-4) /hpf U Hyaline Cast (Auto) 0 (0-5) /lpf U Epithel Cells (Auto) 10-20 H (0-5) /lpf Urine Bacteria (Auto) 4+ H (Negative) Urine Yeast Not Reportable 06/21/19 06/21/19 Range/Units 23:22 23:30 WBC (4.8-10.8) K/uL RBC (4.2-5.4) M/uL Hgb (12.0-16.0) g/dL Hct (37-47) % MCV (80-100) fL MCH (25-34) pg MCHC (32-36) g/dL RDW Std Deviation (36.4-46.3) fL RDW Coeff of Stephani (11.5-14.5) % Plt Count (130-400) K/uL MPV (7.4-10.4) fL Immature Gran % (Auto) % Neut % (Auto) % Lymph % (Auto) % [place] % (Auto) % Eos % (Auto) % Baso % (Auto) % Immature Gran # (Auto) (0.00-0.02) K/uL Neut # (Auto) (1.4-6.5) K/uL Lymph # (Auto) (1.2-3.4) K/uL [place] # (Auto) (0.11-0.59) K/uL Eos # (Auto) (0-0.5) K/uL Baso # (Auto) (0-0.2) K/uL RBC Morphology PT (9.0-12.0) Seconds INR (0.9-1.1) APTT (21.0-31.0) Seconds PTT Ratio Sodium 144 (136-145) mmol/L Potassium 2.9 L (3.5-5.1) mmol/L Chloride 110 H (98-107) mmol/L Carbon Dioxide 27 (21-32) mmol/L Anion Gap 7.0 (3-11) BUN 40 H (7-18) mg/dl Creatinine 1.32 H (0.6-1.2) mg/dl Est Cr Clr Drug Dosing Not Reportable Est GFR ( Amer) 41.6 Est GFR (Non-Af Amer) 35.9 BUN/Creatinine Ratio 30.4 H (10-20) Glucose 132 H (70-99) mg/dl Lactate 1.2 (0.4-2.0) mmol/L Calcium 8.4 L (8.5-10.1) mg/dl Magnesium 2.0 (1.8-2.4) mg/dl Total Bilirubin 0.6 (0.2-1) mg/dl AST 16 (15-37) U/L ALT 20 (12-78) U/L Alkaline Phosphatase 111 (45-117) U/L Total Creatine Kinase 33 (26-192) U/L Troponin I 0.277 H* (0-0.045) ng/ml Total Protein 5.5 L (6.4-8.2) gm/dl Albumin 2.5 L (3.4-5.0) gm/dl Globulin 3.0 (2.5-4.0) gm/dl Albumin/Globulin Ratio 0.8 L (0.9-2) TSH 0.154 L (0.300-4.500) uIu/ml Free T4 1.64 H (0.8-1.6) ng/dl Urine Color Urine Appearance (Clear) Urine pH (4.5-7.5) Ur Specific [place] (1.000-1.030) Urine Protein (Negative) Urine Glucose (UA) (Negative) Urine Ketones (Negative) Urine Blood (Negative) Urine Nitrite (Negative) Urine Bilirubin (Negative) Urine Urobilinogen (Negative) Ur Leukocyte Esterase (Negative) Urine WBC (Auto) (0-5) /hpf Urine RBC (Auto) (0-4) /hpf U Hyaline Cast (Auto) (0-5) /lpf U Epithel Cells (Auto) (0-5) /lpf Urine Bacteria (Auto) (Negative) Urine Yeast Imaging Data Attestation: I personally reviewed and interpreted this imaging study as follows: Blood Pressure Blood Pressure Findings: Low blood pressure Blood Pressure Disposition: further management by hospitalist RYAN Narrative Prior records/ancillary studies reviewed. Triage Nursing notes reviewed. Additional history obtained from nurse from the senior living. The patient's history was concerning for fever and fatigue. Differential diagnosis: Etiologies such as sepsis, UTI, pneumonia, metabolic, electrolyte abnormalities, cardiac sources, intracerebral event, toxicologic, neurologic, as well as others were entertained. Physical examination: As above. Pertinent findings were hypotensive and febrile. Vital signs reviewed and revealed hypotensive and febrile. ER treatment provided: IV fluid resuscitation with Normal saline solution, 1800 mL bolus. Potassium p.o. and IV Blood and urine cultures Antibiotics: Daptomycin, aztreonam On reassessment the patient vital signs improved. Diagnostics interpretation by me: ECG: Irregularly irregular with no acute ST-T wave changes, rate of 71 ventricularly. Impression A. fib interpreted by myself. Repeat EKG is unchanged The labs revealed leukocytosis on CBC. Chemistry panel revealed hypokalemia and this is replaced orally. Acute kidney injury from baseline LFTs revealed. Cardiac enzymes were elevated and repeat EKG is unchanged. Patient had no chest pain. Serum Lactate measurement was 1.2 Blood and urine cultures are pending. Urine concerning for infection and sent for culture Imaging studies: Chest xray XR chest 1V portable HISTORY: Sepsis COMPARISON: Chest 05/08/2019. FINDINGS: No pneumothorax. 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 The heart remains enlarged. Retrocardiac density consistent with a large hiatus hernia. This is also unchanged. Calcified granuloma within the right midlung zone. Mild central pulmonary vascular congestion without overt edema. Small bilateral pleural effusions persist. Advanced degenerative changes within the shoulders. IMPRESSION: No change in the cardiomegaly, small bilateral pleural effusions, and mild central pulmonary vascular congestion. Electronically signed by: Alli Zamudio M.D. 06/21/2019 10:51 PM Dictated: 06/21/19 2249 Transcribed: 06/21/19 224 VENOUS RIGHT LOWER EXTREMITY: No DVT. No mass or adenopathy. Radiologist: Mick Jauregui M.D. Exam and history seem consistent with sepsis most likely from the UTI with hypokalemia and acute dehydration and elevated troponin. Repeat EKG is unchanged. Patient was hypotensive and febrile concerning for sepsis on initial evaluation. She is written for broad-spectrum antibiotics and hydrated per the septic protocol. She is reassessed multiple times. Blood pressure did improve. Patient and family are agreeable treatment plan of admission. Consultation: A consultation was placed with Dr. Loyola hospitalist. The case was discussed and diagnostics were reviewed. The patient was evaluated in the ER for further treatment. Case reviewed with my attending The chart was completed utilizing [employer] voice recognition software. Grammatical errors, random word insertions, pronoun errors, and incomplete sentences are an occassional consequence of this system due to software limitations, ambient noise, and hardware issues. Any formal questions or concerns about the content, text, or information contained within the body of this dictation should be directly addressed to the physician tmd teacher assistant for clarification. Impression & Plan Sepsis, Acute UTI, Elevated troponin, Acute dehydration, Acute hypokalemia Discharge Plan Visit Data *Final* Discharge Date/Time: 06/22/19 03:55 Chief Complaint: Illness Stated Complaint: AMS ED Provider: Michael Wiley ED Midlevel Provider: Sandra Irving Discharge Problem: Sepsis, Acute UTI, Elevated troponin, Acute dehydration, Acute hypokalemia Patient Disposition: Admitted As Inpatient Condition: Fair Discharge Instructions Interventions: ED Discharge Assessment Last Done: 06/22/19 03:55 Discharge Problem: Sepsis Qualifiers: Sepsis type: sepsis due to unspecified organism Sepsis acute organ dysfunction status: unspecified Qualified Code(s): A41.9 - Sepsis, unspecified organism
[2019-06-22 00:14] LABS: Albumin Globulin Ratio 0.8 (0.9-2); Alkaline Phosphatase 111 U/L (45-117); Bilirubin,Total 0.6 mg/dl (0.2-1); Creatine Kinase 33 U/L (26-192); Total Protein 5.5 gm/dl (6.4-8.2); Troponin I 0.277 ng/ml (0-0.045)
[2019-06-22 00:24] LABS: Basophils # (auto) 0.01 K/uL (0-0.2); Basophils % (auto) 0.1 %; Immature Granulocytes # (auto) 0.12 K/uL (0.00-0.02); Immature Granulocytes % (auto) 0.9 %; Lymphocytes # (auto) 0.72 K/uL (1.2-3.4); Lymphocytes % (auto) 5.5 %; Monocytes # (auto) 0.89 K/uL (0.11-0.59); Monocytes % (auto) 6.8 %; Neutrophils # (auto) 11.35 K/uL (1.4-6.5); Neutrophils % (auto) 86.7 %; RBC Morphology Unremarkable
[2019-06-22 00:29] LABS: T4 Free Thyroxine 1.64 ng/dl (0.8-1.6)
[2019-06-22] MEDS ORDERED: ONDANSETRON INJ 2 MG/ML 2 ML VIAL IV PRN (03:57)
[2019-06-22] MEDS ORDERED: cefTRIAXone SODIUM 1,000 MG in DEXTROSE 5% 50 ML IV SCH (04:30)
[2019-06-22] MEDS: SODIUM CHLORIDE 0.9% 1000ML 1,000 ML IV SCH ×2 (05:17→14:47)
--- NOTE | 2019-06-22 05:55 | History & Physical Report ---
Date of Service June 22, 2019 Assessment & Plan (1) Sepsis: Sepsis secondary to urinary tract infection- Blood pressure briefly low down to 79/40 due to low volume state and hypovolemia. Responded quickly to IV fluid resuscitation. Admit to medical telemetry bed. Patient is a DNR/DNI. Present on Admission?: Yes (2) Acute UTI: Follow urine culture and sensitivity. Given daptomycin and aztreonam IV in ED. We will place on ceftriaxone 1 g IV daily. Present on Admission?: Yes (3) Elevated troponin: Troponin elevated at 0.277. EKG without acute changes. Likely type II PA, secondary to supply demand mismatch. Follow serial troponins. Consult cardiology. Present on Admission?: Yes (4) DVT (deep venous thrombosis): Continue Eliquis 2.5 mg p.o. twice daily. Present on Admission?: Yes (5) TIA (transient ischemic attack): Continue clopidogrel. Present on Admission?: Yes (6) HTN (hypertension): Hypertension/acute dehydration/acute hypokalemia- Hold lisinopril/HCTZ, and atenolol due to initial presentation with blood pressure as low as 79/40. Present on Admission?: Yes (7) Acute dehydration: See above Present on Admission?: Yes (8) Acute hypokalemia: See above Present on Admission?: Yes (9) Hyperlipidemia: Continue atorvastatin 20 mg daily Present on Admission?: Yes (10) Hypothyroidism: Continue levothyroxine at current dosing of 80 mcg daily. Laboratories showing mild over suppression, but would not adjust and allowed her primary physicians to adjust when she is at a physiologic baseline Present on Admission?: Yes History of Present Illness Chief Complaint: The patient was brought to the emergency department from [facility] due to reports of fatigue, fever, altered mental status with decreased oral intake over the past few days as noted by family. Primary Care Provider: [facility] The patient is an 88-year-old female permanent resident of [facility] who was brought into the emergency department due to the above symptoms. The patient herself is sleeping soundly, is barely arousable, and therefore most information is gathered from family members who are present in the emergency department at the time of examination. Allergies Allergy/AdvReac Type Severity Reaction Status Date / Time amoxicillin Allergy Mild RASH Verified 06/21/19 23:07 Home Medications Home Medications Medication Instructions Recorded Confirmed Type acetaminophen 325 mg capsule 650 mg PO HS PRN 07/11/18 06/21/19 History acetaminophen 325 mg capsule 650 mg PO Q6H PRN cap 07/11/18 06/21/19 History atenolol 25 mg tablet 75 mg PO BID tab 07/11/18 06/21/19 History atorvastatin 20 mg tablet 20 mg PO QPM tab 07/11/18 06/21/19 History calcium carbonate 500 mg calcium 500 mg PO BID tab 07/11/18 06/21/19 History (1,250 mg) tablet clopidogrel 75 mg tablet 75 mg PO DAILY tab 07/11/18 06/21/19 History cyanocobalamin (vit B-12) 1,000 100 mcg IM .q 2 months ea 07/11/18 06/21/19 History mcg/mL injection kit ferrous sulfate 325 mg (65 mg 325 mg PO BID tab 07/11/18 06/21/19 History iron) tablet lisinopril 20 1 tab PO DAILY 07/11/18 06/21/19 History mg-hydrochlorothiazide 25 mg tablet loratadine 10 mg tablet 10 mg PO DAILY 07/11/18 06/21/19 History omega 1-cfr-tcu-fish oil 100 1 cap PO DAILY cap 07/11/18 06/21/19 History mg-160 mg-1,000 mg capsule levothyroxine 88 mcg capsule 88 mcg PO DAILY 07/20/18 06/21/19 History Fleet Enema 1 dose [place] DIRECTED PRN 06/21/19 06/21/19 History apixaban [Eliquis] 2.5 mg PO BID 06/21/19 06/21/19 History ascorbic acid (vitamin C) [Vitamin 250 mg PO BID 06/21/19 06/21/19 History C] azelastine 1 spray INTRANASAL BID 06/21/19 06/21/19 History bisacodyl [Dulcolax (bisacodyl)] 10 mg [place] DIRECTED PRN 06/21/19 06/21/19 History cholecalciferol (vitamin D3) 1,000 unit PO DAILY 06/21/19 06/21/19 History [Vitamin D3] cyclosporine [Restasis] 1 drp OPHTHALMIC (EYE) Q12H 06/21/19 06/21/19 History magnesium hydroxide [Milk of 30 ml PO DIRECTED PRN 06/21/19 06/21/19 History Magnesia] multivitamin,rz-pymk-rrwvrzzt 1 tab PO DAILY 06/21/19 06/21/19 History [Therems-M] sodium chloride [Saline Nasal] 2 spray INTRANASAL DAILY PRN 06/21/19 06/21/19 History Past Med/Surg History Medical History A-fib Born in [place] (Chronic) Chronic kidney disease (Chronic) DVT (deep venous thrombosis) (Chronic) Dyslipidemia (Chronic) Encounter for colonoscopy due to history of adenomatous colonic polyps (Chronic) Exploratory laparotomy scar (Chronic) HTN (hypertension) (Chronic) Hypothyroid (Chronic) Osteoporosis (Chronic) Parkinson disease (Chronic) TIA (transient ischemic attack) (Chronic) Surgical History History of tonsillectomy and adenoidectomy (Chronic) Social History Communication Ability: Effective Communication Ability Comment: May not be able to communicate at this time due to AMS Straight Knife Machine Cutter Required: No Current Living Situation: Intermediate Other Information That Helps Us Care for You: No Feels Safe at Home: Yes Safety Concerns: Feels Safe At This Time Smoking Status: Never smoker Hx Alcohol Use: No Hx Substance Use: No Review of Systems Review of Systems: Unobtainable due to reduced consciousness Physical Exam Physical Exam: The patient is sleeping soundly, normocephalic and atraumatic, lying in bed and in no acute distress. HEENT--PERRL, EOMI, mucous membranes and oropharynx dry. Neck--supple. No JVD. No bruits. Thyroid normal, trachea midline, no adenopathy. Heart--normal S1 and S2. No murmurs, rubs or gallops. Lungs--clear bilaterally, no respiratory distress, no accessory muscle use. Abdomen--normal bowel sounds and soft. Nontender. Nondistended. Extremities--no cyanosis or clubbing. No edema. Dermatologic--skin is dry, with a few scattered ecchymoses. Neurologic--cranial nerves II through XII grossly intact. Rheumatologic--normal range of motion. Psychiatric--in a deep sleep. Results & Data Vital Signs (Past 12 Hours) Vital Signs Temp Pulse Pulse Resp BP BP Pulse Ox 08/08/19 04:00 97.7 F 88 20 123/70 94 06/22/19 03:31 66 19 102/45 L 94 06/22/19 03:30 61 24 98 06/22/19 03:00 68 23 100/48 L 96 06/22/19 02:30 65 24 95/42 L 96 06/22/19 02:02 64 23 85/47 L 93 06/22/19 02:00 69 24 79/47 L 95 06/22/19 01:30 65 26 H 92/49 L 94 06/22/19 01:00 69 26 H 103/71 92 06/22/19 00:47 76 28 H 98/66 L 95 06/22/19 00:33 72 06/21/19 23:45 71 24 116/53 L 94 06/21/19 23:30 72 25 H 103/54 L 94 06/21/19 23:18 70 16 101/42 L 93 06/21/19 23:15 73 26 H 101/42 L 93 06/21/19 23:00 74 28 H 105/50 L 91 06/21/19 22:45 76 21 95/46 L 94 06/21/19 22:44 100.6 F H 06/21/19 22:31 75 25 H 96/42 L 92 06/21/19 22:30 75 28 H 92 06/21/19 22:21 98.8 F 71 71 14 95/65 L 95/65 L 92 06/21/19 22:19 72 27 H 06/21/19 22:15 74 21 95/56 L Laboratory Results Laboratory Results WBC 13.09 K/uL (4.8-10.8) H 06/21/19 23:22 RBC 3.76 M/uL (4.2-5.4) L 06/21/19 23:22 Hgb 11.0 g/dL (12.0-16.0) L 06/21/19 23:22 Hct 33.7 % (37-47) L 06/21/19 23:22 MCV 89.6 fL (80-100) 06/21/19 23:22 MCH 29.3 pg (25-34) 06/21/19 23:22 MCHC 32.6 g/dL (32-36) 06/21/19 23:22 RDW Std Deviation 50.5 fL (36.4-46.3) H 06/21/19 23:22 RDW Coeff of Stephani 15.5 % (11.5-14.5) H 06/21/19 23:22 Plt Count 184 K/uL (130-400) 06/21/19 23:22 MPV 9.5 fL (7.4-10.4) 06/21/19 23:22 Immature Gran % (Auto) 0.9 % 06/21/19 23:22 Neut % (Auto) 86.7 % 06/21/19 23:22 Lymph % (Auto) 5.5 % 06/21/19 23:22 [place] % (Auto) 6.8 % 06/21/19 23:22 Eos % (Auto) 0.0 % 06/21/19 23:22 Baso % (Auto) 0.1 % 06/21/19 23:22 Immature Gran # (Auto) 0.12 K/uL (0.00-0.02) H 06/21/19 23:22 Neut # (Auto) 11.35 K/uL (1.4-6.5) H 06/21/19 23:22 Lymph # (Auto) 0.72 K/uL (1.2-3.4) L 06/21/19 23:22 [place] # (Auto) 0.89 K/uL (0.11-0.59) H 06/21/19 23:22 Eos # (Auto) 0.00 K/uL (0-0.5) 06/21/19 23:22 Baso # (Auto) 0.01 K/uL (0-0.2) 06/21/19 23:22 RBC Morphology Unremarkable 06/21/19 23:22 PT 15.2 Seconds (9.0-12.0) H 06/21/19 23:22 INR 1.5 (0.9-1.1) H 06/21/19 23:22 APTT 38.2 Seconds (21.0-31.0) H 06/21/19 23:22 PTT Ratio 1.4 06/21/19 23:22 Sodium 144 mmol/L (136-145) 06/21/19 23:22 Potassium 2.9 mmol/L (3.5-5.1) L 06/21/19 23:22 Chloride 110 mmol/L (98-107) H 06/21/19 23:22 Carbon Dioxide 27 mmol/L (21-32) 06/21/19 23:22 Anion Gap 7.0 (3-11) 06/21/19 23:22 BUN 40 mg/dl (7-18) H 06/21/19 23:22 Creatinine 1.32 mg/dl (0.6-1.2) H 06/21/19 23:22 Est Cr Clr Drug Dosing Not Reportable 06/21/19 23:22 Est GFR ( Amer) 41.6 06/21/19 23:22 Est GFR (Non-Af Amer) 35.9 06/21/19 23:22 BUN/Creatinine Ratio 30.4 (10-20) H 06/21/19 23:22 Glucose 132 mg/dl (70-99) H 06/21/19 23:22 Lactate 1.2 mmol/L (0.4-2.0) 06/21/19 23:30 Calcium 8.4 mg/dl (8.5-10.1) L 06/21/19 23:22 Magnesium 2.0 mg/dl (1.8-2.4) 06/21/19 23:22 Total Bilirubin 0.6 mg/dl (0.2-1) 06/21/19 23:22 AST 16 U/L (15-37) 06/21/19 23:22 ALT 20 U/L (12-78) 06/21/19 23:22 Alkaline Phosphatase 111 U/L (45-117) 06/21/19 23:22 Total Creatine Kinase 33 U/L (26-192) 06/21/19 23:22 Troponin I 0.277 ng/ml (0-0.045) H* 06/21/19 23:22 Total Protein 5.5 gm/dl (6.4-8.2) L 06/21/19 23:22 Albumin 2.5 gm/dl (3.4-5.0) L 06/21/19 23:22 Globulin 3.0 gm/dl (2.5-4.0) 06/21/19 23:22 Albumin/Globulin Ratio 0.8 (0.9-2) L 06/21/19 23:22 TSH 0.154 uIu/ml (0.300-4.500) L 06/21/19 23:22 Free T4 1.64 ng/dl (0.8-1.6) H 06/21/19 23:22 Urine Color Dark Yellow 06/21/19 22:40 Urine Appearance Turbid (Clear) A 06/21/19 22:40 Urine pH 5.5 (4.5-7.5) 06/21/19 22:40 Ur Specific Venus 1.017 (1.000-1.030) 06/21/19 22:40 Urine Protein 2+ (Negative) H 06/21/19 22:40 Urine Glucose (UA) Negative (Negative) 06/21/19 22:40 Urine Ketones Negative (Negative) 06/21/19 22:40 Urine Blood 2+ (Negative) H 06/21/19 22:40 Urine Nitrite Negative (Negative) 06/21/19 22:40 Urine Bilirubin Negative (Negative) 06/21/19 22:40 Urine Urobilinogen Negative (Negative) 06/21/19 22:40 Ur Leukocyte Esterase 3+ (Negative) H 06/21/19 22:40 Urine WBC (Auto) >30 /hpf (0-5) H 06/21/19 22:40 Urine RBC (Auto) 0-4 /hpf (0-4) 06/21/19 22:40 U Hyaline Cast (Auto) 0 /lpf (0-5) 06/21/19 22:40 U Epithel Cells (Auto) 10-20 /lpf (0-5) H 06/21/19 22:40 Urine Bacteria (Auto) 4+ (Negative) H 06/21/19 22:40 Urine Yeast Not Reportable 06/21/19 22:40 Diagnostic Findings [facility] [place] [phone] XRay Report Patient: GREGORIO POPE AAdmit Date: 06/21/19 MR#: [id number]: [address] Acct ID:[id number]: Date: 1930[place][birth year] [facility] [place] [id number] Age: 88Location: ED Sex: F Room/Bed: Att Phy: Diagnosis: AMS Rahel Phy: [place], CrestService Date: 06/21/19 Fam Phy: Interpreting Phy: Alli Zamudio MD Admit Phy: Ordering Phy: Sandra Irving ., EDWARD cc: ~ XR chest 1V portable HISTORY: Sepsis COMPARISON: Chest 05/08/2019. FINDINGS: No pneumothorax. 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 The heart remains enlarged. Retrocardiac density consistent with a large hiatus hernia. This is also unchanged. Calcified granuloma within the right midlung zone. Mild central pulmonary vascular congestion without overt edema. Small bilateral pleural effusions persist. Advanced degenerative changes within the shoulders. IMPRESSION: No change in the cardiomegaly, small bilateral pleural effusions, and mild central pulmonary vascular congestion. Electronically signed by: Alli Zamudio M.D. 06/21/2019 10:51 PM Dictated: 06/21/19 2249 Transcribed: 06/21/192248 Code Status & VTE Plan Code Status DNR/DNI, as discussed with family, and as noted in POLST VTE Prophylaxis Plan VTE Prophylaxis will be ordered: Yes PG Care Time/CCT Total # of Minutes Spent Total Time Spent with Patient: Total time spent is greater than 50% in coordination of care (as documented) at patient's floor/unit and/or counseling patient: (1) Sepsis Sepsis acute organ dysfunction status: unspecified Sepsis type: sepsis due to unspecified organism Qualified Code(s): A41.9 - Sepsis, unspecified organism
--- NOTE | 2019-06-22 07:13 | Ultrasound Report ---
US venous doppler LE RT CLINICAL HISTORY: 88 years-old Female presenting with right lower extremity swelling. TECHNIQUE: Real-time grayscale and color and spectral Doppler ultrasound imaging of the veins of the right lower extremity was performed. Compression and augmentation were also utilized. COMPARISON: None. FINDINGS: RIGHT: Common femoral vein: Patent. Greater saphenous vein (superficial): Patent. Deep femoral vein: Patent. Femoral vein: Patent. Popliteal vein: Patent. Calf veins: Patent. Other: None. IMPRESSION: No evidence of deep venous thrombosis. Electronically signed by: Carrington Harman M.D. 06/22/2019 7:11 AM
[2019-06-22] MEDS ORDERED: NON-FORMULARY MEDICATION (Azelastine 1 SPRAYS) INTNAS SCH (09:00)
--- NOTE | 2019-06-22 13:41 | Hospitalist Progress Note ---
Date of Service June 22, 2019 Assessment & Plan (1) Gram-negative bacteremia: (2) Septic shock due to urinary tract infection: (3) Sepsis: Sepsis present on admission secondary to below Gram-negative rods bacteremia secondary to bladder UTI present on admission/complicated We will order repeat blood cultures Patient received aztreonam/type II in ED Received ceftriaxone on the floor pa discontinue ceftriaxone and start the patient on cefepime giving her bacteremia, will use higher dose, 2 g IV every 12 Add lactobacillus to prevent C. difficile Ordered Pie stat ultrasound renal, rule out perinephric abscess or hydronephrosis. patient is a DNR/DNI. (4) Acute UTI: Complicated UTI with bacteremia, Follow-up urine culture, repeat blood cultures Ultrasound renal as mentioned above Continue cefepime (5) Elevated troponin: Troponin elevated at 0.277. EKG without acute changes. Likely demand ischemia, follow-up troponin and follow-up with inside parts sales consult Consult cardiology. (6) DVT (deep venous thrombosis): Continue Eliquis 2.5 mg p.o. twice daily. (7) TIA (transient ischemic attack): Continue clopidogrel. (8) HTN (hypertension): Hypertension/acute dehydration/acute hypokalemia- Hold lisinopril/HCTZ, and atenolol due to initial presentation with blood pr essure as low as 79/40. Will order IV fluids rate to 50 cc/h (9) Acute dehydration: See above (10) Acute hypokalemia: Was replaced with 40 mEq potassium Recheck potassium (11) Hyperlipidemia: Continue atorvastatin 20 mg daily (12) Hypothyroidism: Continue levothyroxine at current dosing of 80 mcg daily. Laboratories showing mild over suppression, but would not adjust and allowed her primary physicians to adjust when she is at a physiologic baseline Subjective Patient is feeling much better, yet complained from slightly shortness of breath. Patient was examined and case was discussed in the presence of her daughter Ms. Lopez Daughter told me that her mother due to parkinsonism has been bedbound/wheelchair bound for years Review of Systems Review of Systems: All systems reviewed & are unremarkable except as noted in HPI & below Patient denied any chest pain or shortness of breath Giving her age parkinsonism and slightly dementia patient review of system was not very reliable, but she also denied any burning sensation in the urine. Physical Exam Physical Exam: Average built, appears to be not in acute distress Constitutional: WD/WN, vitals as above + ill appearing and average body habitus Eyes: PERRL, conjunctivae normal, anicteric sclerae ENMT: external ear and nose normal, oropharynx normal Ears: + hearing impairment Nose: no external nose abnormality Neck: trachea midline, no thyromegaly normal visual inspection and trachea midline Respiratory: + labored breathing and normal percussion; no retractions, does not use accessory muscles, no hyperresonance to percussion, no tactile fremitus and no cough Auscultation: + crackles and + rales; no wheezes Cardiovascular: Rate/Rhythm: + irregularly irregular Heart Sounds: normal S1, normal S2 and + murmur Gastrointestinal (Abdomen): Inspection/Auscultation: abdomen normal to inspection and normal bowel sounds Percussion/Palpation: abdomen soft; abdomen nontender, no guarding and abdomen not rigid Musculoskeletal: Head/Neck/Chest: + head abnormal to inspection, normocephalic and head atraumatic Extremities: + limited ROM of extremities and + abnormal muscle tone Skin: no rashes, warm and dry turgor not decreased Neurologic: + focal motor deficit and awake Speech / Cognition: + abnormal speech Psychiatric: Orientation: alert, oriented to person and oriented to place Eye Contact: good eye contact Affect: euthymic affect Mood: no depressed mood and no anxious mood Results & Data Vital Signs (Past 12 Hours) Vital Signs Temp Pulse Pulse Resp BP BP Pulse Ox 06/22/19 07:09 72 06/22/19 07:02 36.5 C 69 20 92/57 L 96 06/22/19 04:00 36.5 C 88 20 123/70 94 06/22/19 03:31 66 19 102/45 L 94 06/22/19 03:30 61 24 98 06/22/19 03:00 68 23 100/48 L 96 06/22/19 02:30 65 24 95/42 L 96 06/22/19 02:02 64 23 85/47 L 93 06/22/19 02:00 69 24 79/47 L 95 06/22/19 01:30 65 26 H 92/49 L 94 PG Care Time/CCT Total # of Minutes Spent Total Time Spent with Patient: Total time spent is greater than 50% in coordination of care (as documented) at patient's floor/unit and/or counseling patient: (1) Sepsis Sepsis acute organ dysfunction status: unspecified Sepsis type: sepsis due to unspecified organism Qualified Code(s): A41.9 - Sepsis, unspecified organism
[2019-06-22 13:48] LABS: BUN Creatinine Ratio 31.1 (10-20); Calcium 8.6 mg/dl (8.5-10.1); Creatinine Clr Calc Pharmacy 26.9 ml/min; Est GFR (African American) 42.4; Est GFR (Non-African American) 36.6; Potassium 3.9 mmol/L (3.5-5.1)
[2019-06-22] MEDS ORDERED: CEFEPIME 2,000 MG in SYRINGE 7.5 ML IV ONE (14:00)
[2019-06-22] MEDS ORDERED: CEFEPIME 2,000 MG in SYRINGE 7.5 ML IV SCH (14:00)
--- NOTE | 2019-06-22 14:48 | Ultrasound Report ---
RENAL ULTRASOUND CLINICAL HISTORY: bacteremia/uti, r/o hydro or abscess COMPARISON STUDY: None. TECHNIQUE: Sonography of the kidneys and the urinary bladder was performed. FINDINGS: Exam is compromised by suboptimal penetration, particularly affecting visualization of the left kidney. Right kidney measures 10.3 cm in maximal dimension and the left measures 8 cm. There is no hydronephrosis. No renal abscess is identified although sensitivity is diminished on this exam. Th ere is a 1.3 cm left renal cyst. There is trace right perinephric fluid. Neither ureteral jet was mary ntified. Possible debris within the bladder. IMPRESSION: 1. No hydronephrosis. 2. No renal abscess identified however exam compromised by suboptimal penetration, particularly affec ting visualization of the left kidney. Electronically signed by: Sebastián Hernandez M.D. 06/22/2019 2:47 PM
[2019-06-22 15:30] LABS: Troponin I 0.149 ng/ml (0-0.045)
--- NOTE | 2019-06-22 17:25 | Cardiology Consultation ---
Date of Consultation June 22, 2019 Assessment & Plan (1) Elevated troponin: Her troponin was mildly elevated on arrival, her second troponin remains elevated but dropped following presentation. I believe this is due to demand ischemia and would not pursue further. There are no electric cardiographic changes to suggest an acute ischemic event. (2) AF (atrial fibrillation): She has known paroxysmal atrial fibrillation however is currently in it, although our office visit from April 2019, she was on apixaban 2.5 mg twice a day at home (which may not be the correct dose based on her weight of just over 60 kg and her creatinine of less than 1.5 mg but given her comorbidities may be appropriate suggest that she was on 5 mg twice daily but we did not prescribe it). Here she does not seem to be on an anticoagulant. I would recommend starting apixaban if it is felt safe. I do not know how long she has been in atrial fibrillation, we can interrogate the pacemaker to see. The rate is controlled and I would not try to convert the rhythm. (3) Cardiac pacemaker in situ: She has a dual-chamber pacemaker in place, recently evaluated. The pacemaker appears to be functioning well on telemetry with appropriate mode switching during her atrial fibrillation. We can evaluate the pacemaker to determine the duration of atrial fibrillation however there is not appear to be any issue with the pacemaker. History of Present Illness Reason for Consultation: Elevated troponin, pacer, AF Attending Physician: Jackie Farley MD History of Present Illness This is an 88-year-old woman who is in a [facility] facility due to Parkinson's disease. 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 She has a [employer] Adapta dual-chamber pacemaker implanted on October 22, 2016, last evaluated in the office on April 03, 2019. She is typically bedbound due to her Parkinson's disease. She presents with an altered mental status, decreased oral intake, fatigue and fever due to urosepsis. She was noted to have an elevated troponin. At the time of my evaluation she was relatively alert, she denied any cardiovascular symptoms including chest discomfort or palpitations. I am not sure her history is reliable. Allergies Allergy/AdvReac Type Severity Reaction Status Date / Time amoxicillin Allergy Mild RASH Verified 06/21/19 23:07 Home Medications Home Medications Medication Instructions Recorded Confirmed Type acetaminophen 325 mg capsule 650 mg PO HS PRN 07/11/18 06/21/19 History acetaminophen 325 mg capsule 650 mg PO Q6H PRN cap 07/11/18 06/21/19 History atenolol 25 mg tablet 75 mg PO BID tab 07/11/18 06/21/19 History atorvastatin 20 mg tablet 20 mg PO QPM tab 07/11/18 06/21/19 History calcium carbonate 500 mg calcium 500 mg PO BID tab 07/11/18 06/21/19 History (1,250 mg) tablet clopidogrel 75 mg tablet 75 mg PO DAILY tab 07/11/18 06/21/19 History cyanocobalamin (vit B-12) 1,000 100 mcg IM .q 2 months ea 07/11/18 06/21/19 History mcg/mL injection kit ferrous sulfate 325 mg (65 mg 325 mg PO BID tab 07/11/18 06/21/19 History iron) tablet lisinopril 20 1 tab PO DAILY 07/11/18 06/21/19 History mg-hydrochlorothiazide 25 mg tablet loratadine 10 mg tablet 10 mg PO DAILY 07/11/18 06/21/19 History omega 6-zbl-oat-fish oil 100 1 cap PO DAILY cap 07/11/18 06/21/19 History mg-160 mg-1,000 mg capsule levothyroxine 88 mcg capsule 88 mcg PO DAILY 07/20/18 06/21/19 History Fleet Enema 1 dose ND DIRECTED PRN 06/21/19 06/21/19 History apixaban [Eliquis] 2.5 mg PO BID 06/21/19 06/21/19 History ascorbic acid (vitamin C) [Vitamin 250 mg PO BID 06/21/19 06/21/19 History C] azelastine 1 spray INTRANASAL BID 06/21/19 06/21/19 History bisacodyl [Dulcolax (bisacodyl)] 10 mg ND DIRECTED PRN 06/21/19 06/21/19 History cholecalciferol (vitamin D3) 1,000 unit PO DAILY 06/21/19 06/21/19 History [Vitamin D3] cyclosporine [Restasis] 1 drp OPHTHALMIC (EYE) Q12H 06/21/19 06/21/19 History magnesium hydroxide [Milk of 30 ml PO DIRECTED PRN 06/21/19 06/21/19 History Magnesia] multivitamin,[id number] 1 tab PO DAILY 06/21/19 06/21/19 History [Therems-M] sodium chloride [Saline Nasal] 2 spray INTRANASAL DAILY PRN 06/21/19 06/21/19 History Patient History Medical History A-fib Born in [place] (Chronic) Chronic kidney disease (Chronic) DVT (deep venous thrombosis) (Chronic) Dyslipidemia (Chronic) Encounter for colonoscopy due to history of adenomatous colonic polyps (Chronic) Exploratory laparotomy scar (Chronic) HTN (hypertension) (Chronic) Hypothyroid (Chronic) Osteoporosis (Chronic) Parkinson disease (Chronic) TIA (transient ischemic attack) (Chronic) Surgical History History of tonsillectomy and adenoidectomy (Chronic) Social History Communication Ability: Effective Communication Ability Comment: May not be able to communicate at this time due to AMS Home Day Care Provider Required: No Current Living Situation: Detention Other Information That Helps Us Care for You: No Feels Safe at Home: Yes Safety Concerns: Feels Safe At This Time Smoking Status: Never smoker Hx Alcohol Use: No Hx Substance Use: No Physical Exam Physical Exam: Constitutional: Alert, cooperative and in no distress. She is conversational. HEENT: Unremarkable Neck: No jugular venous distention, carotid pulses are normal and equal bilaterally without bruits. Pulmonary: Diffuse crackles on auscultation bilaterally. Cardiac: Irregular rhythm with grade 2/6 holosystolic murmur at the apex, no gallop or rub. Abdomen: Soft, nontender with normal bowel sounds. Extremities: No edema. Distal pulses intact. Neurologic: No focal findings. Gait is steady. Skin: The device site is well-healed without erythema, swelling or tenderness. No rash, ecchymoses or petechiae. Results & Data Vital Signs (Past 12 Hours) Vital Signs Temp Pulse Pulse Resp BP Pulse Ox 06/22/19 15:36 37.6 C H 54 L 20 131/80 06/22/19 07:09 72 06/22/19 07:02 36.5 C 69 20 92/57 L 96 Laboratory Results Initial troponin 0 0.277, subsequent troponin 0 0.149 Diagnostic Findings Her electrocardiogram this morning shows atrial fibrillation with intermittent ventricular pacing and premature ventricular beats. Inferolateral ST-T abnormalities. Telemetry: Atrial fibrillation, intermittent ventricular pacing. Rate 60 to 70 bpm. PG Care Time/CCT Total # of Minutes Spent Total Time Spent with Patient: Total time spent is greater than 50% in coordination of care (as documented) at patient's floor/unit and/or counseling patient:
[2019-06-22] MEDS: LACTOBACILLUS ACIDOPHILUS (FLORANEX) TAB PO SCH ×2 (17:52→21:12)
[2019-06-22] MEDS: ACETAMINOPHEN 325 MG TAB PO PRN (21:11)
[2019-06-23] MEDS: ACETAMINOPHEN 325 MG TAB PO PRN ×3 (04:43→19:44)
[2019-06-23 06:49] LABS: Basophils # (auto) 0.01 K/uL (0-0.2); Basophils % (auto) 0.1 %; Eosinophils # (auto) 0.03 K/uL (0-0.5); Eosinophils % (auto) 0.3 %; Hematocrit (blood only) 32.7 % (37-47); Hemoglobin 10.8 g/dL (12.0-16.0); Immature Granulocytes # (auto) 0.13 K/uL (0.00-0.02); Immature Granulocytes % (auto) 1.2 %; Lymphocytes # (auto) 0.88 K/uL (1.2-3.4); Lymphocytes % (auto) 7.9 %; Mean Corpuscular Volume 89.1 fL (80-100); Mean Platelet Volume 10.6 fL (7.4-10.4); Monocytes # (auto) 0.98 K/uL (0.11-0.59); Monocytes % (auto) 8.8 %; Neutrophils # (auto) 9.13 K/uL (1.4-6.5); Neutrophils % (auto) 81.7 %; Platelet Count 192 K/uL (130-400); RDW Coefficient of Variation 15.9 % (11.5-14.5); RDW Standard Deviation 51.2 fL (36.4-46.3); Red Blood Count 3.67 M/uL (4.2-5.4); White Blood Count 11.16 K/uL (4.8-10.8)
[2019-06-23 07:28] LABS: Albumin Level 2.4 gm/dl (3.4-5.0); BUN Creatinine Ratio 34.1 (10-20); Calcium 8.4 mg/dl (8.5-10.1); Creatinine Clr Calc Pharmacy 27.1 ml/min; Est GFR (African American) 42.8; Est GFR (Non-African American) 36.9; Magnesium 2.1 mg/dl (1.8-2.4); Potassium 3.1 mmol/L (3.5-5.1)
[2019-06-23 07:32] LABS: Albumin Globulin Ratio 0.8 (0.9-2); Bilirubin,Total 0.4 mg/dl (0.2-1); Total Protein 5.4 gm/dl (6.4-8.2)
[2019-06-23] MEDS: LACTOBACILLUS ACIDOPHILUS (FLORANEX) TAB PO SCH ×4 (09:33→19:44)
[2019-06-23] MEDS: SODIUM CHLORIDE 0.9% 1000ML 1,000 ML IV SCH (09:37)
[2019-06-23] MEDS ORDERED: BISACODYL 10 MG SUPP PR PRN (11:04)
[2019-06-23] MEDS ORDERED: SODIUM CHLORIDE 0.65% NA SOLN 45 ML (OCEAN) PRN (11:04)
[2019-06-23] MEDS ORDERED: SOD PHOSPHATE/SOD BIPHOSPHATE ENEMA 132 ML BTL PR PRN (11:13)
--- NOTE | 2019-06-23 11:57 | Hospitalist Progress Note ---
Date of Service June 23, 2019 Assessment & Plan (1) Gram-negative bacteremia: (2) Septic shock due to urinary tract infection: (3) Sepsis: Septic shock present on admission secondary to below Gram-negative rods bacteremia secondary to bladder UTI present on admission/complicated We will order repeat blood cultures Patient received aztreonam/type II in ED Received ceftriaxone on the floor On she was started on cefepime giving her bacteremia, will use higher dose, 2 g IV every 12, her blood cultures from June 22 , positive for gram- negative rods again Due to the presence of pacemaker that we are trying to protect. I called microbiology lab and they said sensitivity will not be back until tomorrow, we will switch her antibiotics to imipenem until the cultures come back tomorrow, do not want to take any risk and infecting her pacemaker in case she has ESBL. Add lactobacillus to prevent C. difficile We will order 2D echo on Wednesday, will not order it today as the yield would be better if we delay obtaining the echo for few days. If 2D echo is negative consider transesophageal echo. Also will need surveillance cultures 2-3 weeks after stopping the antibiotics Renal ultrasound showed no hydronephrosis or perirenal Ordered Pie stat ultrasound renal, rule out perinephric abscess or hydronephrosis. patient is a DNR/DNI. (4) Acute UTI: Complicated UTI with bacteremia, Follow-up urine culture, repeat blood cultures Ultrasound renal as mentioned above was negative to hydronephrosis or perirenal Repeat blood cultures again today and tomorrow as yesterday cultures came back but Continue imipenem (5) Elevated troponin: Troponin elevated at 0.277, repeat troponin is trending down EKG without acute changes. 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 twice daily. (7) TIA (transient ischemic attack): Continue clopidogrel. (8) HTN (hypertension): Hypertension/acute dehydration/acute hypokalemia- Hold lisinopril/HCTZ, and atenolol due to initial presentation with blood pressure as low as 79/40. Currently stable will discontinue IV fluids (9) Acute dehydration: Discontinue IV fluid as patient now is well-hydrated and able to take oral Physical and Occupational Therapy for tomorrow (10) Acute hypokalemia: Was replaced with 40 mEq potassium Continue monitoring potassium level (11) Hyperlipidemia: Continue atorvastatin 20 mg daily (12) Hypothyroidism: Continue levothyroxine at current dosing of 80 mcg daily. Laboratories showing mild over suppression, but would not adjust and allowed her primary physicians to adjust when she is at a physiologic baseline Subjective Patient is feeling better today. She has no new complaint Denies any chest pain or shortness of breath Discussed the case with patient daughter, explained to her the need for doing 2D echo Review of Systems Review of Systems: Patient is slightly demented Denies any chest pain, shortness of breath Denies any burning sensation in the urine or abdominal pain rest of the review of system is unobtainable Physical Exam Constitutional: WD/WN, vitals as above well developed, + well hydrated and average body habitus; no acute distress, not ill appearing and not intoxicated appearing Eyes: PERRL, conjunctivae normal, anicteric sclerae ENMT: external ear and nose normal, oropharynx normal Ears: + hearing impairment Nose: no external nose abnormality Neck: trachea midline, no thyromegaly normal visual inspection and trachea midline Respiratory: + labored breathing and normal percussion; no retractions, does not use accessory muscles, no hyperresonance to percussion, no tactile fremitus and no cough Auscultation: + crackles and + rales; no wheezes Cardiovascular: Rate/Rhythm: + irregularly irregular Heart Sounds: normal S1, normal S2 and + murmur Gastrointestinal (Abdomen): Inspection/Auscultation: abdomen normal to inspection and normal bowel sounds Percussion/Palpation: abdomen soft; abdomen nontender, no guarding and abdomen not rigid Musculoskeletal: Head/Neck/Chest: + head abnormal to inspection, normocephalic and head atraumatic Extremities: + limited ROM of extremities and + abnormal muscle tone Skin: no rashes, warm and dry turgor not decreased Neurologic: + focal motor deficit and awake Speech / Cognition: + abnormal speech Psychiatric: Orientation: alert, oriented to person and oriented to place Eye Contact: good eye contact Affect: euthymic affect Mood: no depressed mood and no anxious mood Results & Data Vital Signs (Past 12 Hours) Vital Signs Temp Pulse Pulse Resp BP Pulse Ox 06/23/19 11:17 37.0 C 83 20 112/61 95 06/23/19 07:24 37.1 C 81 18 108/62 93 06/23/19 07:22 76 06/23/19 05:41 36.8 C 06/23/19 04:37 37.6 C H 91 H 18 124/82 91 06/22/19 23:51 91 H PG Care Time/CCT Total # of Minutes Spent Total Time Spent with Patient: 35 minutes total time spent is greater than 50% in coordination of care (as documented) at patient's floor/unit and/or counseli ng patient/family discussion of care with nursing staff (1) Sepsis Sepsis acute organ dysfunction status: unspecified Sepsis type: sepsis due to unspecified organism Qualified Code(s): A41.9 - Sepsis, unspecified organism
[2019-06-23] MEDS: IMIPENEM/CILASTATIN SODIUM 200 MG in DEXTROSE 5% 100 ML IV SCH ×3 (12:50→23:31)
--- NOTE | 2019-06-23 17:02 | Infectious Disease Consult ---
Date of Consultation June 23, 2019 Assessment & Plan (1) E. coli septicemia: 80-year-old female with E. coli sepsis with urinary tract infection, appears to be responding appropriately to antibiotic therapy. For now would continue imipenem pending final identification and sensitivity. Further course of IV antibiotics will depend on clinical response and sensitivities. Will follow. (2) Acute UTI: History of Present Illness Reason for Consultation: Initiation of imipenem therapy Attending Physician: Jackie Farley MD History of Present Illness 88-year-old female seen at the request of the hospital service for urinary tract infection with encephalopathy. 88-year-old female with history of Parkinson's disease, hyperlipidemia, hypothyroidism, hypertension, with history of recurrent urinary tract infections, with 1 to 2-day history of worsening mental status, abdominal pain consistent with prior urinary tract infections. Patient admitted to the hospital started on imipenem, and now blood cultures and urine cultures positive for gram-negative bacilli. Urine isolate identified as E. coli. P atient's mental status has improved over last 24 hours, not back to baseline, denies any significant abdominal pain or other complaints. Allergies Allergy/AdvReac Type Severity Reaction Status Date / Time amoxicillin Allergy Mild RASH Verified 06/21/19 23:07 Home Medications Home Medications Medication Instructions Recorded Confirmed Type acetaminophen 325 mg capsule 650 mg PO HS PRN 07/11/18 06/21/19 History acetaminophen 325 mg capsule 650 mg PO Q6H PRN cap 07/11/18 06/21/19 History atenolol 25 mg tablet 75 mg PO BID tab 07/11/18 06/21/19 History atorvastatin 20 mg tablet 20 mg PO QPM tab 07/11/18 06/21/19 History calcium carbonate 500 mg calcium 500 mg PO BID tab 07/11/18 06/21/19 History (1,250 mg) tablet clopidogrel 75 mg tablet 75 mg PO DAILY tab 07/11/18 06/21/19 History cyanocobalamin (vit B-12) 1,000 100 mcg IM .q 2 months ea 07/11/18 06/21/19 History mcg/mL injection kit ferrous sulfate 325 mg (65 mg 325 mg PO BID tab 07/11/18 06/21/19 History iron) tablet lisinopril 20 1 tab PO DAILY 07/11/18 06/21/19 History mg-hydrochlorothiazide 25 mg tablet loratadine 10 mg tablet 10 mg PO DAILY 07/11/18 06/21/19 History omega 5-ihd-yls-fish oil 100 1 cap PO DAILY cap 07/11/18 06/21/19 History mg-160 mg-1,000 mg capsule levothyroxine 88 mcg capsule 88 mcg PO DAILY 07/20/18 06/21/19 History Fleet Enema 1 dose [place] DIRECTED PRN 06/21/19 06/21/19 History apixaban [Eliquis] 2.5 mg PO BID 06/21/19 06/21/19 History ascorbic acid (vitamin C) [Vitamin 250 mg PO BID 06/21/19 06/21/19 History C] azelastine 1 spray INTRANASAL BID 06/21/19 06/21/19 History bisacodyl [Dulcolax (bisacodyl)] 10 mg [place] DIRECTED PRN 06/21/19 06/21/19 History cholecalciferol (vitamin D3) 1,000 unit PO DAILY 06/21/19 06/21/19 History [Vitamin D3] cyclosporine [Restasis] 1 drp OPHTHALMIC (EYE) Q12H 06/21/19 06/21/19 History magnesium hydroxide [Milk of 30 ml PO DIRECTED PRN 06/21/19 06/21/19 History Magnesia] multivitamin,[id number] 1 tab PO DAILY 06/21/19 06/21/19 History [Therems-M] sodium chloride [Saline Nasal] 2 spray INTRANASAL DAILY PRN 06/21/19 06/21/19 History Patient History Medical History A-fib Born in [facility] (Chronic) Chronic kidney disease (Chronic) DVT (deep venous thrombosis) (Chronic) Dyslipidemia (Chronic) Encounter for colonoscopy due to history of adenomatous colonic polyps (Chronic) Exploratory laparotomy scar (Chronic) HTN (hypertension) (Chronic) Hypothyroid (Chronic) Osteoporosis (Chronic) Parkinson disease (Chronic) TIA (transient ischemic attack) (Chronic) Surgical History History of tonsillectomy and adenoidectomy (Chronic) Social History Communication Ability: Effective Communication Ability Comment: May not be able to communicate at this time due to AMS Study Specialist Required: No Current Living Situation: Penitentiary Other Information That Helps Us Care for You: No Feels Safe at Home: Yes Safety Concerns: Feels Safe At This Time Smoking Status: Never smoker Hx Alcohol Use: No Hx Substance Use: No Review of Systems Review of Systems: All systems reviewed & are unremarkable except as noted in HPI & below Physical Exam Constitutional: WD/WN, vitals as above comfortable; no acute distress Eyes: PERRL, conjunctivae normal, anicteric sclerae ENMT: external ear and nose normal, oropharynx normal Neck: trachea midline, no thyromegaly neck nontender Respiratory: normal respiratory effort, lungs clear to auscultation normal percussion; does not use accessory muscles Cardiovascular: Rate/Rhythm: regular rate and regular rhythm Heart Sounds: normal S1 and normal S2; no gallop, no murmur and no cardiac rub Vessels: normal peripheral pulses; no JVD Gastrointestinal (Abdomen): normal bowel sounds, soft, nontender, no hepatosplenomegaly Musculoskeletal: no cyanosis or clubbing, extremities motor strength 5/5 Spine: thoracic spine normal to inspection and lumbar spine normal to inspection; no cervical spinal tenderness Skin: no rashes, warm and dry normal turgor; no lesions Neurologic: patellar DTR's 2+ bilat, sensation intact no focal motor deficits Psychiatric: A+Ox3, euthymic affect Orientation: cooperative Lymphatic: no cervical or axillary lymphadenopathy no inguinal lymphadenopathy Results & Data Vital Signs (Past 12 Hours) Vital Signs Temp Pulse Pulse Resp BP Pulse Ox 06/23/19 15:42 36.5 C 80 18 122/67 92 06/23/19 11:17 37.0 C 83 20 112/61 95 06/23/19 07:24 37.1 C 81 18 108/62 93 06/23/19 07:22 76 06/23/19 05:41 36.8 C Laboratory Results Short CBC 06/23/19 Range/Units 05:59 WBC 11.16 H (4.8-10.8) K/uL Hgb 10.8 L (12.0-16.0) g/dL Hct 32.7 L (37-47) % Plt Count 192 (130-400) K/uL BMP 06/23/19 05:59 Sodium 144 Potassium 3.1 L D Chloride 114 H Carbon Dioxide 23 BUN 44 H Creatinine 1.29 H Glucose 93 Calcium 8.4 L Liver Function 06/23/19 Range/Units 05:59 Total Bilirubin 0.4 (0.2-1) mg/dl AST 20 (15-37) U/L ALT 22 (12-78) U/L Alkaline Phosphatase 99 (45-117) U/L Albumin 2.4 L (3.4-5.0) gm/dl Diagnostic Findings Microbiology 06/22/19 11:38 Blood Aerobic Blood Culture - Preliminary Gram negative bacilli 06/22/19 11:14 Blood Aerobic Blood Culture - Preliminary Gram negative bacilli 06/22/19 11:14 Blood Anaerobic Blood Culture - Preliminary No growth in Anaerobic bottle after 24 hours. 06/21/19 23:30 Blood Aerobic Blood Culture - Preliminary Gram negative bacilli 06/21/19 23:30 Blood Anaerobic Blood Culture - Final 06/21/19 23:22 Blood Aerobic Blood Culture - Preliminary Gram negative bacilli 06/21/19 23:22 Blood Anaerobic Blood Culture - Preliminary Gram negative bacilli 06/21/19 22:40 Urine,Straight Cath Urine Culture - Preliminary Escherichia coli cc: ~ RENAL ULTRASOUND CLINICAL HISTORY: bacteremia/uti, r/o hydro or abscess COMPARISON STUDY: None. TECHNIQUE: Sonography of the kidneys and the urinary bladder was performed. FINDINGS: Exam is compromised by suboptimal penetration, particularly affecting visualization of the left kidney. Right kidney measures 10.3 cm in maximal dimension and the left measures 8 cm. There is no hydronephrosis. No renal abscess is identified although sensitivity is diminished on this exam. There is a 1.3 cm left renal cyst. There is trace right perinephric fluid. Neither ureteral jet was identified. Possible debris within the bladder. IMPRESSION: 1. No hydronephrosis. 2. No renal abscess identified however exam compromised by suboptimal penetration, particularly affecting visualization of the left kidney. Electronically signed by: Sebastián Hernandez M.D. 06/22/2019 2:47 PM Dictated: 06/22/19 1445 Transcribed: 06/22/19 1445 PG Care Time/CCT Total # of Minutes Spent Total Time Spent with Patient: Total time spent is greater than 50% in coordination of care (as documented) at patient's floor/unit and/or counseling patient:
[2019-06-23] MEDS: ASCORBIC ACID 500 MG TAB PO SCH (19:44)
[2019-06-23] MEDS: CALCIUM CARBONATE 1250MG TAB PO SCH (19:49)
[2019-06-23] MEDS: ATORVASTATIN 20 MG TAB PO SCH (19:49)
[2019-06-23] MEDS: ATENOLOL 25 MG TABLET PO SCH (19:49)
[2019-06-23] MEDS: APIXABAN 2.5 MG TAB PO SCH (19:50)
[2019-06-24] MEDS: LEVOTHYROXINE SODIUM 88 MCG TABLET PO SCH (05:48)
[2019-06-24] MEDS: IMIPENEM/CILASTATIN SODIUM 200 MG in DEXTROSE 5% 100 ML IV SCH ×3 (05:48→18:06)
--- NOTE | 2019-06-24 07:43 | Hospitalist Progress Note ---
Date of Service June 24, 2019 Assessment & Plan (1) Gram-negative bacteremia: (2) Septic shock due to urinary tract infection: (3) Sepsis: Septic shock present on admission secondary to below ESBL E. coli bacteremia secondary to bladder UTI present on admission/complicated initially Patient received one dose aztreonam in ED , then she Received ceftriaxone on the floor x one day On she was started on cefepime 2 g IV every 12, then her blood cultures from June 22 , turned positive for gram-negative rods again Due to the presence of pacemaker antibiotics were switched to imipenem. on 06/24 her cultures from 06/21 matured and grew E coli ESBL that is resistant to CTX and Cefepime. likely sensitive to imepenim patient will need a PIC line versus Mid line based on echo / YAAKOV results echo is ordered transthoracic, if negative then YAAKOV should be ordered if no endocarditis then patient can have a midline for 14 days Abx from the date of negative Blood Cx if she has endocarditis then a PIC line should be placed continue lactobacillus to prevent C. difficile she will need surveillance cultures 2-3 weeks after stopping the antibiotics Renal ultrasound showed no hydronephrosis or perirenal Ordered Pie stat ultrasound renal, rule out perinephric abscess or hydroneph rosis. patient is a DNR/DNI. (4) Acute UTI: Complicated UTI with bacteremia, E coli ESBL Follow-up urine culture, repeat blood cultures Ultrasound renal as mentioned above was negative to hydronephrosis or perirenal Repeat blood cultures again today and tomorrow as yesterday cultures came back but Continue imipenem (5) Elevated troponin: Troponin elevated at 0.277, repeat troponin is trending down EKG without acute changes. Likely demand ischemia, Myocardial infarction ruled out Repeat troponin is trending down, billet sawyer consult appreciated, no procedure required as per billet sawyer (6) DVT (deep venous thrombosis): Continue Eliquis 2.5 mg p.o. twice daily. (7) TIA (transient ischemic attack): Continue clopidogrel. (8) HTN (hypertension): Hypertension/acute dehydration/acute hypokalemia- Hold lisinopril/HCTZ, and atenolol due to initial presentation with blood pressure as low as 79/40. Currently stable will discontinue IV fluids (9) Acute dehydration: Discontinue IV fluid as patient now is well-hydrated and able to take oral Physical and Occupational Therapy for tomorrow (10) Acute hypokalemia: Was replaced with 40 mEq potassium Continue monitoring potassium level (11) Hyperlipidemia: Continue atorvastatin 20 mg daily (12) Hypothyroidism: Continue levothyroxine at current dosing of 80 mcg daily. Laboratories showing mild over suppression, but would not adjust and allowed her primary physicians to adjust when she is at a physiologic baseline Subjective Continue to improve with no new complaint Denies any chest pain or shortness of breath Family are agreeable to the 2D echo, and patient and daughter understand that if it is necessary to do a transesophageal echo if the transthoracic echo is negative Review of Systems Review of Systems: Review of system Constitutional: No fever / no chills / no sweats / no weakness / no fatigue Eyes: no blurring of vision / no eye pain / no discharge / no redness ENT: no hearing loss / no epistaxis /no swallowing problems Respiratory: no cough / no wheezing / no SOB / no hemoptysis Cardiovascular: no Chest pain / no lower extremity edema / no palpitation Abdomen: no pain / no nausea / no vomiting / no constipation Musculoskeletal: no joint pain / no muscle pain / no joint swelling Genitourinary: no dysuria / no incontinence / no urinary retention Neurologic: no focal weakness / no numbness/tingling / no ataxia Psychiatric: no depression symptoms / no anxiety / no insomnia Endocrine: no excessive thirst / no excessive urination Hematologic: no abnormal bleeding / no bruising / no LN swelling Skin: No rash / no pallor Physical Exam Physical Exam: Physical examination General patient appears to be comfortable, not in acute distress HEENT: Atraumatic , normocephalic /no jaundice /no pallor /anicteric /no dry mucous membrane /normal external ear inspection Neck: Supple /no swelling /central trach Heart: S1/S2 normal/regular rate and rhythm/no gallop /no rub /no murmur Lungs: Clear to auscultation bilaterally/normal chest with expansion/no rhonchi/no rales/no wheezing/no use of accessory muscles of respiration Abdomen: Soft/nontender/no guarding/no rebound/no organomegaly/no pulsatile mass Musculoskeletal: No swelling/no edema/no tenderness/normal range of motion Neuro exam: Awake alert oriented 3/cranial nerves II through XII appear to be intact/sensation intact/moves all extremities/no abnormal movements Psychiatric evaluation: No depressed mood/normal affect Skin: No rash on exposed skin area/no erythema Extremity: Normal pulse/no pitting edema/no clubbing or cyanosis Endocrine/lymphatic: No obvious lymphadenopathy /no lymphedema Constitutional: WD/WN, vitals as above well developed, + well hydrated and average body habitus; no acute distress, not ill appearing and not intoxicated appearing Eyes: PERRL, conjunctivae normal, anicteric sclerae ENMT: external ear and nose normal, oropharynx normal Ears: + hearing impairment Nose: no external nose abnormality Neck: trachea midline, no thyromegaly normal visual inspection and trachea midline Respiratory: + labored breathing and normal percussion; no retractions, does not use accessory muscles, no hyperresonance to percussion, no tactile fremitus and no cough Auscultation: + crackles and + rales; no wheezes Cardiovascular: Rate/Rhythm: + irregularly irregular Heart Sounds: normal S1, normal S2 and + murmur Gastrointestinal (Abdomen): Inspection/Auscultation: abdomen normal to inspection and normal bowel sounds Percussion/Palpation: abdomen soft; abdom en nontender, no guarding and abdomen not rigid Musculoskeletal: Head/Neck/Chest: + head abnormal to inspection, normocephalic and head atraumatic Extremities: + limited ROM of extremities and + abnormal muscle tone Skin: no rashes, warm and dry turgor not decreased Neurologic: + focal motor deficit and awake Speech / Cognition: + abnormal speech Psychiatric: Orientation: alert, oriented to person and oriented to place Eye Contact: good eye contact Affect: euthymic affect Mood: no depressed mood and no anxious mood Results & Data Vital Signs (Past 12 Hours) Vital Signs Temp Pulse Pulse Resp BP BP Pulse Ox 06/24/19 07:27 36.3 C L 86 18 147/82 H 97 06/24/19 07:21 79 06/24/19 05:28 36.4 C L 80 20 142/76 H 95 06/24/19 00:50 78 06/23/19 22:59 36.9 C 80 24 128/84 92 PG Care Time/CCT Total # of Minutes Spent Total Time Spent with Patient: 35 minutes total time spent is greater than 50% in coordination of care (as documented) at patient's floor/unit and/or counseling patient/family discussion of care with nursing staff (1) Sepsis Sepsis acute organ dysfunction status: unspecified Sepsis type: sepsis due to unspecified organism Qualified Code(s): A41.9 - Sepsis, unspecified organism
[2019-06-24] MEDS: LACTOBACILLUS ACIDOPHILUS (FLORANEX) TAB PO SCH ×4 (09:10→21:05)
[2019-06-24] MEDS: ATENOLOL 25 MG TABLET PO SCH ×2 (09:11→21:07)
[2019-06-24] MEDS: CLOPIDOGREL BISULFATE 75 MG TAB PO SCH (09:12)
[2019-06-24] MEDS: ASCORBIC ACID 500 MG TAB PO SCH ×2 (09:12→21:07)
[2019-06-24] MEDS: OMEGA-3 (PURIFIED FISH OIL) 1 GM CAP PO SCH (09:12)
[2019-06-24] MEDS: APIXABAN 2.5 MG TAB PO SCH ×2 (09:13→21:05)
[2019-06-24] MEDS: CALCIUM CARBONATE 1250MG TAB PO SCH ×2 (09:13→21:06)
[2019-06-24 10:04] LABS: Hematocrit (blood only) 35.3 % (37-47); Mean Platelet Volume 9.5 fL (7.4-10.4); Platelet Count 222 K/uL (130-400); RDW Coefficient of Variation 15.7 % (11.5-14.5); RDW Standard Deviation 51.1 fL (36.4-46.3); Red Blood Count 4.01 M/uL (4.2-5.4); White Blood Count 10.85 K/uL (4.8-10.8)
[2019-06-24 10:28] LABS: Albumin Level 2.7 gm/dl (3.4-5.0); BUN Creatinine Ratio 31.7 (10-20); Calcium 8.9 mg/dl (8.5-10.1); Creatinine Clr Calc Pharmacy 29.7 ml/min; Est GFR (African American) 47.7; Est GFR (Non-African American) 41.1; Potassium 3.1 mmol/L (3.5-5.1)
[2019-06-24 10:31] LABS: Albumin Globulin Ratio 0.7 (0.9-2); Bilirubin,Total 0.5 mg/dl (0.2-1); Globulin 3.6 gm/dl (2.5-4.0); Total Protein 6.3 gm/dl (6.4-8.2)
[2019-06-24] MEDS: ATORVASTATIN 20 MG TAB PO SCH (21:05)
[2019-06-25] MEDS: IMIPENEM/CILASTATIN SODIUM 200 MG in DEXTROSE 5% 100 ML IV SCH ×3 (00:30→12:45)
[2019-06-25] MEDS: LEVOTHYROXINE SODIUM 88 MCG TABLET PO SCH (06:13)
[2019-06-25 07:22] LABS: Hematocrit (blood only) 35.5 % (37-47); Hemoglobin 11.6 g/dL (12.0-16.0); Mean Corpuscular Hgb Conc 32.7 g/dL (32-36); Mean Corpuscular Volume 88.3 fL (80-100); Mean Platelet Volume 10.5 fL (7.4-10.4); Platelet Count 244 K/uL (130-400); RDW Coefficient of Variation 15.7 % (11.5-14.5); RDW Standard Deviation 50.9 fL (36.4-46.3); Red Blood Count 4.02 M/uL (4.2-5.4); White Blood Count 8.98 K/uL (4.8-10.8)
[2019-06-25 07:51] LABS: BUN Creatinine Ratio 35.9 (10-20); Calcium 8.8 mg/dl (8.5-10.1); Creatinine Clr Calc Pharmacy 40.7 ml/min; Est GFR (African American) 69.9; Est GFR (Non-African American) 60.3; Potassium 3.1 mmol/L (3.5-5.1)
--- NOTE | 2019-06-25 08:27 | Anesthesiology Consultation ---
Date of Service June 25, 2019 Assessment & Plan (1) Encounter for pre-operative examination: Chart Review Chart Review: Acceptable Risk for Surgery ((YAAKOV)) History Height/Weight Height: 5 ft 5 in Weight: 64.6 kg Allergies Allergy/AdvReac Type Severity Reaction Status Date / Time amoxicillin Allergy Mild RASH Verified 06/21/19 23:07 Medications Home Medications Medication Instructions Recorded Confirmed Last Taken acetaminophen 325 mg capsule 650 mg PO HS PRN 07/11/18 06/21/19 Unknown acetaminophen 325 mg capsule 650 mg PO Q6H PRN cap 07/11/18 06/21/19 Unknown atenolol 25 mg tablet 75 mg PO BID tab 07/11/18 06/21/19 Unknown atorvastatin 20 mg tablet 20 mg PO QPM tab 07/11/18 06/21/19 Unknown calcium carbonate 500 mg calcium 500 mg PO BID tab 07/11/18 06/21/19 Unknown (1,250 mg) tablet clopidogrel 75 mg tablet 75 mg PO DAILY tab 07/11/18 06/21/19 Unknown cyanocobalamin (vit B-12) 1,000 100 mcg IM .q 2 months ea 07/11/18 06/21/19 Unknown mcg/mL injection kit ferrous sulfate 325 mg (65 mg 325 mg PO BID tab 07/11/18 06/21/19 Unknown iron) tablet lisinopril 20 1 tab PO DAILY 07/11/18 06/21/19 Unknown mg-hydrochlorothiazide 25 mg tablet loratadine 10 mg tablet 10 mg PO DAILY 07/11/18 06/21/19 Unknown omega 5-rrq-bma-fish oil 100 1 cap PO DAILY cap 07/11/18 06/21/19 Unknown mg-160 mg-1,000 mg capsule levothyroxine 88 mcg capsule 88 mcg PO DAILY 07/20/18 06/21/19 Unknown Fleet Enema 1 dose [place] DIRECTED PRN 06/21/19 06/21/19 Unknown apixaban [Eliquis] 2.5 mg PO BID 06/21/19 06/21/19 Unknown ascorbic acid (vitamin C) [Vitamin 250 mg PO BID 06/21/19 06/21/19 Unknown C] azelastine 1 spray INTRANASAL BID 06/21/19 06/21/19 Unknown bisacodyl [Dulcolax (bisacodyl)] 10 mg [place] DIRECTED PRN 06/21/19 06/21/19 Unknown cholecalciferol (vitamin D3) 1,000 unit PO DAILY 06/21/19 06/21/19 Unknown [Vitamin D3] cyclosporine [Restasis] 1 drp OPHTHALMIC (EYE) Q12H 06/21/19 06/21/19 Unknown magnesium hydroxide [Milk of 30 ml PO DIRECTED PRN 06/21/19 06/21/19 Unknown Magnesia] multivitamin,dj-nemd-yktopmbt 1 tab PO DAILY 06/21/19 06/21/19 Unknown [Therems-M] sodium chloride [Saline Nasal] 2 spray INTRANASAL DAILY PRN 06/21/19 06/21/19 Unknown Active Medications Generic Name Dose Route Start Last Admin Trade Name Freq PRN Reason Stop Dose Admin Acetaminophen 650 mg 06/22/19 20:28 06/23/19 19:44 Tylenol PO 07/22/19 20:27 650 mg Q4H PRN Administration Pain Apixaban 2.5 mg 06/23/19 21:00 06/24/19 21:05 Eliquis PO 07/23/19 20:59 2.5 mg BID NOHEMI Administration Ascorbic Acid 250 mg 06/23/19 21:00 06/24/19 21:07 Vitamin C PO 07/23/19 20:59 250 mg BID NOHEMI Administration Atenolol 75 mg 06/23/19 21:00 06/24/19 21:07 Tenormin PO 07/23/19 20:59 75 mg BID NOHEMI Administration Atorvastatin Calcium 20 mg 06/23/19 21:00 06/24/19 21:05 Lipitor PO 07/23/19 20:59 20 mg QPM NOHEMI Administration Calcium Carbonate 1,250 mg 06/23/19 21:00 06/24/19 21:06 Os-Niall 500 PO 07/23/19 20:59 1,250 mg BID NOHEMI Administration Clopidogrel Bisulfate 75 mg 06/24/19 09:00 06/24/19 09:12 Plavix PO 07/24/19 08:59 75 mg DAILY NOHEMI Administration Fish Oil 1 gm 06/24/19 09:00 06/24/19 09:12 [place]-3 (Purified Fish Oil) PO 07/24/19 08:59 1 gm DAILY NOHEMI Administration Imipenem/Cilastatin Sodium 200 104 mls @ 100 mls/hr 06/23/19 12:00 06/25/19 06:13 mg/ Dextrose IV 07/07/19 11:59 100 mls/hr Q6H NOHEMI Administration Protocol Lactobacillus Acidophilus 4 tab 06/22/19 17:00 06/24/19 21:05 Floranex PO 07/22/19 16:59 4 tab QIDM NOHEMI Administration Levothyroxine Sodium 88 mcg 06/24/19 06:30 06/25/19 06:13 Synthroid PO 07/24/19 06:29 88 mcg DAILYBB NOHEMI Administration Miscellaneous 1 ea 06/22/19 08:00 06/25/19 00:29 Order Awaiting Action N/A 07/22/19 07:59 Not Given QS NOHEMI Miscellaneous 1 ea 06/23/19 16:00 06/25/19 00:29 Order Awaiting Action N/A 07/23/19 15:59 Not Given QS NOHEMI Past Medical History Medical History A-fib Pacemaker Born in [facility] (Chronic) Chronic kidney disease (Chronic) DVT (deep venous thrombosis) (Chronic) Dyslipidemia (Chronic) Encounter for colonoscopy due to history of adenomatous colonic polyps (Chronic) Exploratory laparotomy scar (Chronic) HTN (hypertension) (Chronic) Hypothyroid (Chronic) Osteoporosis (Chronic) Parkinson disease (Chronic) TIA (transient ischemic attack) (Chronic) Past Surgical History Surgical History Hx of cardiac pacemaker History of tonsillectomy and adenoidectomy (Chronic) Social History Smoking Status: Never smoker Hx Alcohol Use: No Hx Substance Use: No Physical Exam Vital Signs Last Vital Signs Temp 36.8 C 06/25/19 07:05 Pulse 76 06/25/19 07:16 Resp 20 06/25/19 07:05 BP 122/76 06/25/19 07:05 Pulse Ox 93 06/25/19 07:05 Testing Laboratory Results 06/25/19 06:47 06/25/19 06:47 PT 15.2 Seconds (9.0-12.0) H 06/21/19 23:22 INR 1.5 (0.9-1.1) H 06/21/19 23:22 APTT 38.2 Seconds (21.0-31.0) H 06/21/19 23:22 Urine Color Dark Yellow 06/21/19 22:40 Urine Appearance Turbid (Clear) A 06/21/19 22:40 Urine pH 5.5 (4.5-7.5) 06/21/19 22:40 Ur Specific [place] 1.017 (1.000-1.030) 06/21/19 22:40 Urine Protein 2+ (Negative) H 06/21/19 22:40 Urine Glucose (UA) Negative (Negative) 06/21/19 22:40 Urine Ketones Negative (Negative) 06/21/19 22:40 Urine Nitrite Negative (Negative) 06/21/19 22:40 Ur Leukocyte Esterase 3+ (Negative) H 06/21/19 22:40 Urine WBC (Auto) >30 /hpf (0-5) H 06/21/19 22:40 Urine RBC (Auto) 0-4 /hpf (0-4) 06/21/19 22:40 U Hyaline Cast (Auto) 0 /lpf (0-5) 06/21/19 22:40 U Epithel Cells (Auto) 10-20 /lpf (0-5) H 06/21/19 22:40 Urine Bacteria (Auto) 4+ (Negative) H 06/21/19 22:40 06/22/19 11:14 Aerobic Blood Culture - Preliminary Blood Escherichia coli ESBL Anaerobic Blood Culture - Preliminary No growth in Anaerobic bottle after 48 hours. 06/23/19 12:12 Aerobic Blood Culture - Preliminary Blood No growth in Aerobic bottle after 24 hours. Anaerobic Blood Culture - Preliminary No growth in Anaerobic bottle after 24 hours. 06/23/19 12:17 Aerobic Blood Culture - Preliminary Blood No growth in Aerobic bottle after 24 hours. Anaerobic Blood Culture - Preliminary No growth in Anaerobic bottle after 24 hours. 06/21/19 22:40 Urine Culture - Final Urine,Straight Cath Escherichia coli ESBL 06/22/19 11:38 Aerobic Blood Culture - Preliminary Blood Escherichia coli ESBL Anaerobic Blood Culture - Final 06/21/19 23:22 Aerobic Blood Culture - Preliminary Blood Escherichia coli ESBL Anaerobic Blood Culture - Preliminary Escherichia coli ESBL 06/21/19 23:30 Aerobic Blood Culture - Preliminary Blood Escherichia coli ESBL Anaerobic Blood Culture - Final Electrocardiogram Date: 06/24/19 Findings: + NSST changes, + AFIB @ (79) and + RBBB (incomplete) Chest X-Ray Date: 06/21/19 Findings: + cardiomegaly (stable), + pulmonary vascular congestion (mild and unchanged) and + pleural effusion (small bilateral) Echocardiogram Date: 06/24/19 EF: 60-65% LV Function: normal Other Findings: + LVH (severe) Valvular Disease: + (sclerosis, no stenosis), + AI (milod to moderate), + MR (moderate) and + pertinent finding (moderate TR)
[2019-06-25] MEDS: LACTOBACILLUS ACIDOPHILUS (FLORANEX) TAB PO SCH ×4 (09:12→21:38)
[2019-06-25] MEDS: ATENOLOL 25 MG TABLET PO SCH (09:13)
[2019-06-25] MEDS: CLOPIDOGREL BISULFATE 75 MG TAB PO SCH (09:13)
[2019-06-25] MEDS: CALCIUM CARBONATE 1250MG TAB PO SCH ×2 (09:14→21:38)
[2019-06-25] MEDS: APIXABAN 2.5 MG TAB PO SCH ×2 (09:14→21:38)
[2019-06-25] MEDS: OMEGA-3 (PURIFIED FISH OIL) 1 GM CAP PO SCH (09:14)
[2019-06-25] MEDS: ASCORBIC ACID 500 MG TAB PO SCH ×2 (09:14→21:39)
[2019-06-25] MEDS ORDERED: FUROSEMIDE 20 MG in SYRINGE 0 ML IV ONE (15:30)
--- NOTE | 2019-06-25 15:31 | XRay Report ---
XR chest 1V portable CLINICAL HISTORY: 88 years-old Female presenting with SOB. TECHNIQUE: Portable upright AP view of the chest was obtained. COMPARISON: 06/21/2019. FINDINGS: Left subclavian pacer with leads in the right atrium and right ventricular apex. Atherosclerosis of t he aortic arch. Cardiac silhouette moderately enlarged. Interval development of a small to moderate r ight pleural effusion with poor aeration of the right lung base in comparison to prior. Persistent th ough slightly increased small left pleural effusion and poor aeration of the left lung base. Mild pul monary vascular prominence. No pneumothorax. Advanced degenerative changes and deformity of the gleno humeral joints bilaterally. Degenerative changes of the spine. Osteopenia. Upper abdomen normal. IMPRESSION: 1. Worsened aeration of the lung bases with increasing bilateral pleural effusions in the setting of cardiomegaly and mild volume overload. No eber pulmonary edema. Electronically signed by: Carrington Harman M.D. 06/25/2019 3:30 PM
--- NOTE | 2019-06-25 15:31 | Hospitalist Progress Note ---
Date of Service June 25, 2019 Assessment & Plan (1) Gram-negative bacteremia: (2) Septic shock due to urinary tract infection: (3) Sepsis: Septic shock present on admission secondary to below ESBL E. coli bacteremia secondary to bladder UTI present on admission/complicated initially Patient received one dose aztreonam in ED , then she Received ceftriaxone on the floor x one day On she was started on cefepime 2 g IV every 12, then her blood cultures from June 22 , turned positive for gram-negative rods again Due to the presence of pacemaker antibiotics were switched to imipenem. on 06/24 her cultures from 06/21 matured and grew E coli ESBL that is resistant to CTX and Cefepime. likely sensitive to imepenim patient will need a PIC line versus Mid line based on YAAKOV results and only if blood cultures from 06/23 appears negative echo transthoracic, was obtained on 06/24, results as below Left ventricle cavity is small. Severe concentric left ventricular hypertrophy. Left ventricular systolic function was normal Left atrium is mildly dilated Aortic valve sclerosis moderate, without significant aortic stenosis cannot rule out aortic valvular vegetation. Mild to moderate aortic regurgitation Mild mitral annual calcification Moderate mitral regurgitation Moderate to severe tricuspid regurgitation Right ventricular systolic pressure is normal Transesophageal echo was ordered for tomorrow, anesthesia was consulted giving patient compromised status. if she has endocarditis then a PIC line should be placed continue lactobacillus to prevent C. difficile If no endocarditis she still might need midline for 14 days of IV antibiotics. she will need surveillance cultures 2-3 weeks after stopping the antibiotics Nonurgent consult was placed in the computer for Dr. Hart infectious disease is to follow-up with treatment team. Renal ultrasound showed no hydronephrosis or perirenal Ordered Pie stat ultrasound renal, rule out perinephric abscess or hydronephrosis. patient is a DNR/DNI. (4) Acute UTI: Complicated UTI with bacteremia, E coli ESBL Follow-up urine culture, repeat blood cultures Ultrasound renal as mentioned above was negative to hydronephrosis or perirenal Continue imipenem (5) Elevated troponin: Troponin elevated at 0.277, repeat troponin is trending down EKG without acute changes. Likely demand ischemia, Myocardial infarction ruled out Repeat troponin is trending down, loading inspector consult appreciated, no procedure required as per loading inspector (6) DVT (deep venous thrombosis): Continue Eliquis 2.5 mg p.o. twice daily. (7) TIA (transient ischemic attack): Continue clopidogrel. (8) HTN (hypertension): Hypertension/acute dehydration/acute hypokalemia- Hold lisinopril/HCTZ, and atenolol due to initial presentation with blood pressure as low as 79/40. Currently stable will discontinue IV fluids (9) Acute dehydration: Discontinue IV fluid as patient now is well-hydrated and able to take oral Physical and Occupational Therapy Patient actually today had slight shortness of breath, with some crackles and rales on exam, Also she was bradycardic Lowered atenolol dose from 75 mg twice daily to 50 mg p.o. twice daily Ordered 1 dose of Lasix 20 mg IV Order chest x-ray (10) Acute hypokalemia: Was replaced with 40 mEq potassium Continue monitoring potassium level (11) Hyperlipidemia: Continue atorvastatin 20 mg daily (12) Hypothyroidism: Continue levothyroxine at current dosing of 80 mcg daily. Laboratories showing mild over suppression, but would not adjust and allowed her primary physicians to adjust when she is at a physiologic baseline Subjective Continue to improve with no new complaint Denies any chest pain or shortness of breath although appears slightly short of breath on exam her son is at bedside, discussed the case with him Review of Systems Review of Systems: Review of system Constitutional: No fever / no chills / no sweats / no weakness / no fatigue Eyes: no blurring of vision / no eye pain / no discharge / no redness ENT: no hearing loss / no epistaxis /no swallowing problems Respiratory: no cough / no wheezing / no SOB / no hemoptysis Cardiovascular: no Chest pain / no lower extremity edema / no palpitation Abdomen: no pain / no nausea / no vomiting / no constipation Musculoskeletal: no joint pain / no muscle pain / no joint swelling Genitourinary: no dysuria / no incontinence / no urinary retention Neurologic: no focal weakness / no numbness/tingling / no ataxia Psychiatric: no depression symptoms / no anxiety / no insomnia Endocrine: no excessive thirst / no excessive urination Hematologic: no abnormal bleeding / no bruising / no LN swelling Skin: No rash / no pallor Physical Exam Constitutional: WD/WN, vitals as above well developed, + well hydrated and average body habitus; no acute distress, not ill appearing and not intoxicated appearing Eyes: PERRL, conjunctivae normal, anicteric sclerae ENMT: external ear and nose normal, oropharynx normal Ears: + hearing impairment Nose: no external nose abnormality Neck: trachea midline, no thyromegaly normal visual inspection and trachea midline Respiratory: + labored breathing and normal percussion; no retractions, does not use accessory muscles, no hyperresonance to percussion, no tactile fremitus and no cough Auscultation: + crackles and + rales; no wheezes Cardiovascular: Rate/Rhythm: + irregularly irregular Heart Sounds: normal S1, normal S2 and + murmur Gastrointestinal (Abdomen): Inspection/Auscultation: abdomen normal to inspection and normal bowel sounds Percussion/Palpation: abdomen soft; abdomen nontender, no guarding and abdomen not rigid Musculoskeletal: Head/Neck/Chest: + head abnormal to inspection, normocephalic and head atraumatic Extremities: + limited ROM of extremities and + abnormal muscle tone Skin: no rashes, warm and dry turgor not decreased Neurologic: + focal motor deficit and awake Speech / Cognition: + abnormal speech Psychiatric: Orientation: alert, oriented to person and oriented to place E ye Contact: good eye contact Affect: euthymic affect Mood: no depressed mood and no anxious mood Results & Data Vital Signs (Past 12 Hours) Vital Signs Temp Pulse Pulse Resp BP Pulse Ox 06/25/19 11:25 36.7 C 56 L 16 127/70 92 06/25/19 07:16 76 06/25/19 07:05 36.8 C 83 20 122/76 93 06/25/19 04:19 36.9 C 70 18 123/68 95 06/25/19 03:39 65 PG Care Time/CCT Total # of Minutes Spent Total Time Spent with Patient: Total time spent is greater than 50% in coordination of care (as documented) at patient's floor/unit and/or counseling patient: (1) Sepsis Sepsis acute organ dysfunction status: unspecified Sepsis type: sepsis due to unspecified organism Qualified Code(s): A41.9 - Sepsis, unspecified organism
[2019-06-25] MEDS ORDERED: POTASSIUM CHLORIDE 20 MEQ/15 ML UDC PO STA (17:21)
[2019-06-25] MEDS: IMIPENEM/CILASTATIN SODIUM 300 MG in DEXTROSE 5% 100 ML IV SCH (18:45)
--- NOTE | 2019-06-25 20:49 | Infectious Disease Progress Nt ---
Date of Service June 25, 2019 Assessment & Plan (1) E. coli septicemia: Patient with E. coli sepsis with ESBL producing isolate, better on IV antibiotics. Would continue on IV antibiotics for now, consider change to ertapenem which would allow for outpatient therapy if desired. Endocarditis highly unlikely with E. coli infection. Will discuss with all involved. Subjective Patient seen in follow-up for E. coli sepsis. Blood cultures positive for ESBL producing E. coli. Feeling better, offers no new complaints today. Remains afebrile. Review of Systems Review of Systems: All systems reviewed & are unremarkable except as noted in HPI & below Physical Exam Constitutional: WD/WN, vitals as above comfortable; no acute distress Eyes: PERRL, conjunctivae normal, anicteric sclerae ENMT: external ear and nose normal, oropharynx normal Neck: trachea midline, no thyromegaly neck nontender Respiratory: normal respiratory effort, lungs clear to auscultation normal percussion; does not use accessory muscles Cardiovascular: Rate/Rhythm: regular rate and regular rhythm Heart Sounds: normal S1 and normal S2; no gallop, no murmur and no cardiac rub Vessels: normal peripheral pulses; no JVD Gastrointestinal (Abdomen): normal bowel sounds, soft, nontender, no hepatosplenomegaly Musculoskeletal: no cyanosis or clubbing, extremities motor strength 5/5 Spine: thoracic spine normal to inspection and lumbar spine normal to inspection; no cervical spinal tenderness Skin: no rashes, warm and dry normal turgor; no lesions Neurologic: patellar DTR's 2+ bilat, sensation intact no focal motor deficits Psychiatric: A+Ox3, euthymic affect Orientation: cooperative Lymphatic: no cervical or axillary lymphadenopathy no inguinal lymphadenopathy Results & Data Vital Signs (Past 12 Hours) Vital Signs Temp Pulse Pulse Resp BP Pulse Ox 06/25/19 19:45 36.4 C L 72 19 139/79 95 06/25/19 16:00 72 06/25/19 11:25 36.7 C 56 L 16 127/70 92 PG Care Time/CCT Total # of Minutes Spent Total Time Spent with Patient: Total time spent is greater than 50% in coordination of care (as documented) at patient's floor/unit and/or counseling patient:
[2019-06-25] MEDS: ATORVASTATIN 20 MG TAB PO SCH (21:38)
[2019-06-25] MEDS: ATENOLOL 50 MG TABLET PO SCH (21:38)
[2019-06-26] MEDS: IMIPENEM/CILASTATIN SODIUM 300 MG in DEXTROSE 5% 100 ML IV SCH ×3 (00:16→12:10)
[2019-06-26] MEDS: LEVOTHYROXINE SODIUM 88 MCG TABLET PO SCH (05:19)
[2019-06-26 07:43] LABS: Hematocrit (blood only) 35.1 % (37-47); Hemoglobin 11.9 g/dL (12.0-16.0); Mean Corpuscular Hgb Conc 33.9 g/dL (32-36); Mean Corpuscular Volume 86.7 fL (80-100); Platelet Count 284 K/uL (130-400); RDW Coefficient of Variation 15.5 % (11.5-14.5); RDW Standard Deviation 49.3 fL (36.4-46.3); Red Blood Count 4.05 M/uL (4.2-5.4); White Blood Count 9.42 K/uL (4.8-10.8)
[2019-06-26] MEDS: LACTOBACILLUS ACIDOPHILUS (FLORANEX) TAB PO SCH ×3 (08:08→16:50)
[2019-06-26] MEDS: APIXABAN 2.5 MG TAB PO SCH (08:08)
[2019-06-26] MEDS: OMEGA-3 (PURIFIED FISH OIL) 1 GM CAP PO SCH (08:08)
[2019-06-26] MEDS: CALCIUM CARBONATE 1250MG TAB PO SCH (08:09)
[2019-06-26] MEDS: ATENOLOL 50 MG TABLET PO SCH (08:10)
[2019-06-26] MEDS: ASCORBIC ACID 500 MG TAB PO SCH (08:11)
[2019-06-26] MEDS: CLOPIDOGREL BISULFATE 75 MG TAB PO SCH (08:15)
[2019-06-26 08:18] LABS: BUN Creatinine Ratio 25.2 (10-20); Creatinine Clr Calc Pharmacy 37.2 ml/min; Est GFR (African American) 62.8; Est GFR (Non-African American) 54.2; Magnesium 1.9 mg/dl (1.8-2.4); Potassium 3.7 mmol/L (3.5-5.1)
--- NOTE | 2019-06-26 11:10 | Infectious Disease Progress Nt ---
Date of Service June 26, 2019 Assessment & Plan (1) E. coli septicemia: can change to ertapenem upon d/c as ease of once daily dosing, no po options available based on sensitivity, would extend to 4 weeks of IV abx due to ? of AV veg. Agree she is not ideal candidate for YAAKOV. will need weekly cbc, cmp, esr while on IV abx. Can follow with Dr. Hart post d/c from hospital. would suggest follow up TTE as outpt prior to d/c abx. discussed with primary. Subjective pt continues on imipenem, tolerating well. TTE done, ? AV veg. Cardio hesitant to perform YAAKOV due to age and comorbidities. Blood and urine cultures growing ESBL+ E. coli, repeat cutlures on 06/23 and 06/24 negative. were + on 06/21 and 06/22. Afebrile, wbc 9. Results & Data Vital Signs (Past 12 Hours) Vital Signs Temp Pulse Pulse Resp BP Pulse Ox 06/26/19 07:13 36.3 C L 72 18 154/80 H 97 06/26/19 03:01 36.7 C 73 19 125/70 94 06/25/19 23:51 73 Laboratory Results Microbiology 06/24/19 10:02 Blood Aerobic Blood Culture - Preliminary No growth in Aerobic bottle after 48 hours. 06/24/19 10:02 Blood Anaerobic Blood Culture - Preliminary No growth in Anaerobic bottle after 48 hours. 06/24/19 09:54 Blood Aerobic Blood Culture - Preliminary No growth in Aerobic bottle after 48 hours. 06/24/19 09:54 Blood Anaerobic Blood Culture - Preliminary No growth in Anaerobic bottle after 48 hours. 06/22/19 11:38 Blood Aerobic Blood Culture - Final Escherichia coli ESBL 06/22/19 11:38 Blood Anaerobic Blood Culture - Final 06/21/19 23:30 Blood Aerobic Blood Culture - Final Escherichia coli ESBL 06/21/19 23:30 Blood Anaerobic Blood Culture - Final 06/21/19 23:22 Blood Aerobic Blood Culture - Final Escherichia coli ESBL 06/21/19 23:22 Blood Anaerobic Blood Culture - Final Escherichia coli ESBL 06/23/19 12:17 Blood Aerobic Blood Culture - Preliminary No growth in Aerobic bottle after 48 hours. 06/23/19 12:17 Blood Anaerobic Blood Culture - Preliminary No growth in Anaerobic bottle after 48 hours. 06/23/19 12:12 Blood Aerobic Blood Culture - Preliminary No growth in Aerobic bottle after 48 hours. 06/23/19 12:12 Blood Anaerobic Blood Culture - Preliminary No growth in Anaerobic bottle after 48 hours. 06/22/19 11:14 Blood Aerobic Blood Culture - Preliminary Escherichia coli ESBL 06/22/19 11:14 Blood Anaerobic Blood Culture - Preliminary No growth in Anaerobic bottle after 48 hours. 06/21/19 22:40 Urine,Straight Cath Urine Culture - Final Escherichia coli ESBL PG Care Time/CCT Total # of Minutes Spent Total Time Spent with Patient: Total time spent is greater than 50% in coordination of care (as documented) at patient's floor/unit and/or counseling patient:
[2019-06-26 11:42] VITALS: TEMP 98.1
[2019-06-26 15:02] VITALS: PULSE 73; O2SAT 95
[2019-06-26 17:31] VITALS: BP 147/82
[2019-06-26] MEDS ORDERED: ERTAPENEM SODIUM 1,000 MG in SODIUM CHLORIDE 0.9% 50 ML IV SCH (18:00)
--- NOTE | 2019-07-03 20:43 | Discharge Summary ---
Date of Service June 26, 2019 Admission HPI Per Admitting Provider The patient is an 88-year-old female permanent resident of [facility] who was brought into the emergency department due to the above symptoms. The patient herself is sleeping soundly, is barely arousable, and therefore most information is gathered from family members who are present in the emergency department at the time of examination. Principal Diagnosis gram negative septicemia from UTI Discharge Exam Constitutional: WD/WN, vitals as above well developed, + well hydrated and average body habitus; no acute distress, not ill appearing and not intoxicated appearing Eyes: PERRL, conjunctivae normal, anicteric sclerae ENMT: external ear and nose normal, oropharynx normal Ears: + hearing impairment Nose: no external nose abnormality Neck: trachea midline, no thyromegaly normal visual inspection and trachea midline Respiratory: + labored breathing and normal percussion; no retractions, does not use accessory muscles, no hyperresonance to percussion, no tactile fremitus and no cough Auscultation: + crackles and + rales; no wheezes Cardiovascular: Rate/Rhythm: + irregularly irregular Heart Sounds: normal S1, normal S2 and + murmur Gastrointestinal (Abdomen): Inspection/Auscultation: abdomen normal to inspection and normal bowel sounds Percussion/Palpation: abdomen soft; abdomen nontender, no guarding and abdomen not rigid Musculoskeletal: Head/Neck/Chest: + head abnormal to inspection, normocephalic and head atraumatic Extremities: + limited ROM of extremities and + abnormal muscle tone Skin: no rashes, warm and dry turgor not decreased Neurologic: + focal motor deficit and awake Speech / Cognition: + abnormal speech Psychiatric: Orientation: alert, oriented to person and oriented to place Eye Contact: good eye contact Affect: euthymic affect Mood: no depressed mood and no anxious mood Discharge Data Allergies Allergy/AdvReac Type Severity Reaction Status Date / Time amoxicillin Allergy Mild RASH Verified 06/21/19 23:07 Consultations 06/22/19 01:07 ED Decision to Admit Stat 06/22/19 03:57 Consult Cardiology Routine Consult Case Management - Discharge Planning Routine 06/23/19 11:40 Consult Infectious Diseases Routine 06/25/19 08:08 Consult Anesthesiology Routine 06/25/19 15:41 Consult Infectious Diseases Routine Ordered Studies 06/21/19 22:32 US venous doppler LE RT Urgent 06/22/19 13:40 US renal/blad retro comp Stat Hospital Course (1) Gram-negative bacteremia: (2) Septic shock due to urinary tract infection: (3) Sepsis: Septic shock present on admission secondary to below ESBL E. coli bacteremia secondary to bladder UTI present on admission/complicated initially Patient received one dose aztreonam in ED , then she Received ceftriaxone on the floor x one day On she was started on cefepime 2 g IV every 12, then her blood cultures from June 22 , turned positive for gram-negative rods again Due to the presence of pacemaker antibiotics were switched to imipenem. on 06/24 her cultures from 06/21 matured and grew E coli ESBL that is resistant to CTX and Cefepime. likely sensitive to imepenim patient will need a PIC line versus Mid line based on YAAKOV results and only if blood cultures from 06/23 appears negative echo transthoracic, was obtained on 06/24, results as below Left ventricle cavity is small. Severe concentric left ventricular hypertrophy. Left ventricular systolic function was normal Left atrium is mildly dilated Aortic valve sclerosis moderate, without significant aortic stenosis cannot rule out aortic valvular vegetation. Mild to moderate aortic regurgitation Mild mitral annual calcification Moderate mitral regurgitation Moderate to severe tricuspid regurgitation Right ventricular systolic pressure is normal Appreciate input by ID. can change to ertapenem upon d/c as ease of once daily dosing, no po options available based on sensitivity, would extend to 4 weeks of IV abx due to ? of AV veg. Agree she is not ideal candidate for YAAKOV. will need weekly cbc, cmp, esr while on IV abx. Can follow with Dr. Hart post d/c from hospital. would suggest follow up TTE as outpt prior to d/c abx. Placed patient on peripheral ultrasound guided IV line Renal ultrasound showed no hydronephrosis or perirenal Ordered Pie stat ultrasound renal, rule out perinephric abscess or hydronephrosis. patient is a DNR/DNI. (4) Acute UTI: Complicated UTI with bacteremia, E coli ESBL Follow-up urine culture, repeat blood cultures Ultrasound renal as mentioned above was negative to hydronephrosis or perirenal Continue imipenem (5) Elevated troponin: Troponin elevated at 0.277, repeat troponin is trending down EKG without acute changes. Likely demand ischemia, Myocardial infarction ruled out Repeat troponin is trending down, public information specialist consult appreciated, no procedure required as per public information specialist (6) DVT (deep venous thrombosis): Continue Eliquis 2.5 mg p.o. twice daily. (7) TIA (transient ischemic attack): Continue clopidogrel. (8) HTN (hypertension): Hypertension/acute dehydration/acute hypokalemia- Hold lisinopril/HCTZ, and atenolol due to initial presentation with blood pressure as low as 79/40. Currently stable will discontinue IV fluids (9) Acute dehydration: Discontinue IV fluid as patient now is well-hydrated and able to take oral Physical and Occupational Therapy Patient actually today had slight shortness of breath, with some crackles and rales on exam, Also she was bradycardic Lowered atenolol dose from 75 mg twice daily to 50 mg p.o. twice daily Ordered 1 dose of Lasix 20 mg IV Order chest x-ray (10) Acute hypokalemia: Was replaced with 40 mEq potassium Continue monitoring potassium level (11) Hyperlipidemia: Continue atorvastatin 20 mg daily (12) Hypothyroidism: Continue levothyroxine at current dosing of 80 mcg daily. Laboratories showing mild over suppression, but would not adjust and allowed her primary physicians to adjust when she is at a physiologic baseline Total Time Total Time Spent Total Time Spent (In Minutes): 32 Total Time Includes: Examination of the Patient, Discharge Planning and Medication Reconciliation Discharge Plan Discharge Items Patient Disposition: Transfer Half-Way Fac Reason For Visit: HYPOVOLEMIC SHOCK, NSTEMI, UTI Discharge Diagnosis: Gram negative bacteremia Condition: Fair Discharge Goals: Decrease discomfort Activity: Resume your previous activity Non-emergency contact: Primary Care Provider Call non-emergency contact if: you have any medication questions Follow-up/Referrals: Jorge Aggarwal [Primary Care Provider] - Diet: Heart Healthy Diet Texture: Dental soft (bite-sized) Addtl Provider Instructions: Continue Ertapenem for 27 more days IV at 17:00 will need weekly cbc, cmp, esr while on IV abx. Can follow with Dr. Hart post d/c from hospital for finishing course of antbiotics. would suggest follow up TTE as outpt prior to d/c abx. F/U with PCP in 1-2 weeks Prescriptions: New calcium carbonate [Oyster Shell Calcium 500] 500 mg calcium (1,250 mg) Tablet 1,250 mg PO BID Qty: 0 RF: 0 atenolol 50 mg Tablet 50 mg PO BID Qty: 60 RF: 0 Lactobacillus acidoph-L.bulgar [Floranex] 1 million cell Tablet 4 tab PO QIDM Qty: 0 RF: 0 ertapenem 1 gram recon soln 1 gm IV .17:00 27 Days Qty: 27 RF: 0 Continued acetaminophen 325 mg capsule 650 mg PO Q6H PRN (Reason: pain/fever) RF: 0 atorvastatin 20 mg tablet 20 mg PO QPM RF: 0 clopidogrel 75 mg tablet 75 mg PO DAILY RF: 0 cyanocobalamin (vitamin B-12) 1,000 mcg/mL kit 100 mcg IM .q 2 months RF: 0 ferrous sulfate 325 mg (65 mg iron) tablet 325 mg PO BID RF: 0 omega 2-kpb-qcz-fish oil [Fish Oil] 100-160-1,000 mg capsule 1 cap PO DAILY RF: 0 loratadine [Claritin] 10 mg tablet 10 mg PO DAILY RF: 0 levothyroxine 88 mcg capsule 88 mcg PO DAILY RF: 0 azelastine 137 mcg (0.1 %) Aerosol,[place] 1 spray INTRANASAL BID RF: 0 bisacodyl [Dulcolax (bisacodyl)] 10 mg Suppository 10 mg [place] DIRECTED PRN (Reason: Constipation) RF: 0 Eliquis 2.5 mg Tablet 2.5 mg PO BID RF: 0 Fleet Enema 1 dose [place] DIRECTED PRN (Reason: Constipation) RF: 0 magnesium hydroxide [Milk of Magnesia] 400 mg/5 mL Suspension 30 ml PO DIRECTED PRN (Reason: Constipation) RF: 0 Restasis 0.05 % [place]rette 1 drp OPHTHALMIC (EYE) Q12H RF: 0 sodium chloride [Saline Nasal] 0.65 % Aerosol,[place] 2 spray INTRANASAL DAILY PRN (Reason: allergic rhinitis) RF: 0 Therems-M 27-0.4 mg Tablet 1 tab PO DAILY RF: 0 ascorbic acid (vitamin C) [Vitamin C] 250 mg Tablet 250 mg PO BID RF: 0 cholecalciferol (vitamin D3) [Vitamin D3] 1,000 unit Tablet,Chewable 1,000 unit PO DAILY RF: 0 Discontinued acetaminophen 325 mg capsule 650 mg PO HS PRN (Reason: Pain) RF: 0 atenolol 25 mg tablet 75 mg PO BID RF: 0 calcium carbonate [Esis-Voa-305] 500 mg calcium (1,250 mg) tablet 500 mg PO BID RF: 0 lisinopril-hydrochlorothiazide [Zestoretic] 20-25 mg tablet 1 tab PO DAILY RF: 0 Stand-Alone Forms: [facility] Discharge Orders: Discharge Order (Routine); Ordered 06/26/19 Ordered By: Paul Winston Skilled Items Patient informed of condition?: Yes DNR: Yes Discharge Level of Care: Skilled Communicable Disease: No Discharge Prognosis: Stable Admission Data Admit Date/Time: 06/22/19 02:52 Attending Provider: Paul Winston Admit Provider: Jude Mendoza Primary Care Provider: Jorge Aggarwal Other Providers: Nicola Pacheco ; Bernabe Hart Service: Telemetry Medical Other Interventions: Discharge Summary Assessment (RN) Last Done: 06/26/19 17:27 DC Date/Time DO NOT enter until pt leaves facility: 06/26/19 19:30
== END 2019-06-26 19:30 | DRG 871 ==
LOC: ED 22:10 → SUATTDRO 06-22 02:52 → 2N 06-22 02:52
DX: Z79.02 Long term (current) use of antithrombotics/antiplatelets; I48.0 Paroxysmal atrial fibrillation; I21.A1 Myocardial infarction type 2; Z79.01 Long term (current) use of anticoagulants; N39.0 Urinary tract infection, site not specified; R65.21 Severe sepsis with septic shock; R57.1 Hypovolemic shock; Z88.0 Allergy status to penicillin; A41.51 Sepsis due to Escherichia coli [E. coli]; G20 Parkinson's disease; E78.5 Hyperlipidemia, unspecified; I12.9 Hypertensive chronic kidney disease with stage 1 through stage 4 chronic kidney disease, or unspecified chronic kidney disease; Z86.718 Personal history of other venous thrombosis and embolism; Z79.899 Other long term (current) drug therapy; E87.6 Hypokalemia; E03.9 Hypothyroidism, unspecified; Z86.73 Personal history of transient ischemic attack (TIA), and cerebral infarction without residual deficits; Z95.0 Presence of cardiac pacemaker; N18.9 Chronic kidney disease, unspecified; I49.5 Sick sinus syndrome; Z99.3 Dependence on wheelchair; Z66 Do not resuscitate

== ENCOUNTER 2019-11-07 12:21 | Inpatient (IN) ==
[2019-11-07] MEDS ORDERED: SODIUM CHLORIDE 0.9% 1000ML 1,000 ML IV SCH (13:00)
[2019-11-07] MEDS ORDERED: ERTAPENEM SODIUM 10 ML IV STA (13:21)
--- NOTE | 2019-11-07 13:26 | XRay Report ---
XR chest 1V portable HISTORY: 89 years-old Female ams . Acutely altered mental status COMPARISON: Chest radiograph 06/25/2018 TECHNIQUE: Portable AP view of the chest FINDINGS: Cardiac silhouette is enlarged, unchanged. Calcified plaque of the thoracic aortic arch. Unchanged le ft subclavian pacer. Large hiatal hernia. No pneumothorax. Blunting of the costophrenic angles sugges ts trace effusions. Minimal left basilar atelectasis. Calcific granuloma of the right upper lung. Sina gitudinally oriented lucency projecting over the left midlung suggests skin fold. Degenerative change s of the shoulders and spine. IMPRESSION: 1. Cardiomegaly without overt pulmonary edema. 2. Trace pleural effusions with mild left basilar atelectasis. 3. Large hiatal hernia. ACT 112: Negative or not required by law. The above report was generated using voice recognition software. It may contain grammatical, syntax o r spelling errors. Electronically signed by: Edwin Fajardo M.D. 11/07/2019 1:25 PM
[2019-11-07 13:39] LABS: Basophils # (auto) 0.03 K/uL (0-0.2); Basophils % (auto) 0.3 %; Eosinophils % (auto) 0.9 %; Hematocrit (blood only) 44.1 % (37-47); Immature Granulocytes # (auto) 0.07 K/uL (0.00-0.02); Immature Granulocytes % (auto) 0.6 %; Lymphocytes # (auto) 2.08 K/uL (1.2-3.4); Lymphocytes % (auto) 18.9 %; Mean Corpuscular Hemoglobin 30.7 pg (25-34); Mean Corpuscular Hgb Conc 31.7 g/dL (32-36); Mean Corpuscular Volume 96.7 fL (80-100); Mean Platelet Volume 10.6 fL (7.4-10.4); Monocytes # (auto) 0.96 K/uL (0.11-0.59); Monocytes % (auto) 8.7 %; Neutrophils # (auto) 7.74 K/uL (1.4-6.5); Neutrophils % (auto) 70.6 %; Platelet Count 271 K/uL (130-400); RDW Coefficient of Variation 16.1 % (11.5-14.5); RDW Standard Deviation 54.4 fL (36.4-46.3); Red Blood Count 4.56 M/uL (4.2-5.4); White Blood Count 10.98 K/uL (4.8-10.8)
[2019-11-07 13:49] LABS: Influenza A virus by PCR Neg for Influ A (Neg); Influenza B virus by PCR Neg for Influ B (Neg)
[2019-11-07 13:51] LABS: INR 1.3 (0.9-1.1); Partial Thromboplastin Time 25.9 Seconds (21.0-31.0); Prothrombin Time 13.4 Seconds (9.0-12.0)
[2019-11-07 14:10] LABS: Albumin Level 3.1 gm/dl (3.4-5.0); BUN Creatinine Ratio 46.6 (10-20); Bilirubin,Total 0.4 mg/dl (0.2-1); Calcium 12.8 mg/dl (8.5-10.1); Creatinine Clr Calc Pharmacy 17.8 ml/min; Est GFR (African American) 34.3; Est GFR (Non-African American) 29.6; Total Protein 7.6 gm/dl (6.4-8.2); Troponin I 0.137 ng/ml (0-0.045)
--- NOTE | 2019-11-07 14:10 | CT Scan Report ---
CT head/brain wo con CLINICAL HISTORY: Acute change in mental status UNRESPONSIVE PATIENT COMPARISON STUDY: 09/20/2016 TECHNIQUE: Axial CT of the brain is performed from the vertex to the skull base. IV contrast was not administered for this examination. A dose lowering technique was utilized adhering to the principles of ALARA. CT DOSE: 537.48 mGy.cm FINDINGS: No intra or extra-axial mass lesions are visualized. There is no CT evidence of acute cortical infarc tion. There is no evidence of midline shift. There is no acute hemorrhage. No calvarial fractures ar e visualized. There are moderate white matter hypodensities likely on a small vessel basis. There is basal ganglial mineralization. There are diffuse atrophic changes. There is mild ventricular dilatation, finding which is felt to be secondary to volume loss. There is no evidence of acute sinusitis IMPRESSION: No acute intracranial findings ACT 112: Negative or not required by law. Electronically signed by: Get Santizo M.D. 11/07/2019 2:09 PM
[2019-11-07 14:38] LABS: Appearance Urine Clear (Clear); Bacteria Urine Automated Negative (Negative); Bilirubin Urine Negative (Negative); Blood Urine Negative (Negative); Color Urine Yellow; Glucose Urine UA Negative (Negative); Ketones Urine Negative (Negative); Leukocyte Esterase Urine Trace (Negative); Nitrite Urine Negative (Negative); Protein Urine Negative (Negative); RBC Urine Automated 0-4 /hpf (0-4); Specific Gravity Urine 1.016 (1.000-1.030); Urobilinogen Urine Negative (Negative)
[2019-11-07 15:22] LABS: Aspartate Aminotransferase 41 U/L (15-37); Bilirubin Direct < 0.1 mg/dl (0-0.2); Magnesium 2.2 mg/dl (1.8-2.4); Potassium 3.8 mmol/L (3.5-5.1)
--- NOTE | 2019-11-07 15:45 | History & Physical Report ---
Date of Service November 07, 2019 Assessment & Plan (1) Hypercalcemia: Patient's calcium is severely elevated. Unclear etiology, can consider acute dehydration, occult neoplasm, or excessive oral intake (patient is on calcium carbonate as an outpatient along with vitamin C). For now will try gentle hydration. Can give single dose of Zometa as well. Will check PTH and ionized calcium. Depending results, consider SPEP, UPEP, and PTH related peptide. Check CT of the chest. (2) Asymptomatic bacteriuria: Patient has been on Invanz for the past 4 days. Patient is asymptomatic with normal urinalysis, will hold off on further antibiotics suspect this is asymptomatic bacteriuria. Monitor for signs of infection including elevated white count, fevers, or other clinical changes. (3) Acute dehydration: As noted above, patient has moderate hypernatremia. We use half-normal saline for now, follow lab work and address change clerk to [facility] as needed. (4) Elevated troponin: Chronic in this patient, I do see was more elevated back in June 2019. Asymptomatic, we will hold off work-up for now. (5) HTN (hypertension): Blood pressure is acceptable today, patient is on atenolol which we will continue. (6) Parkinson's disease: Patient is not on any medications practices this time. Family tells me that she has been nonambulatory for a number years. Continue to monitor. (7) CKD (chronic kidney disease), stage III: Renal function essentially baseline, continue to monitor with hydration. History of Present Illness Primary Care Provider: [facility] This is an 88-year-old female with past medical history of Parkinson's, senile dementia, hypertension, DVT that presents today with hypercalcemia. Patient cannot provide any meaningful history but is accompanied by 3 daughters who are able to answer questions. They tell me the patient has been having worsening lethargy over the past 10 days. They note that she has trouble staying awake. They also note very diminished p.o. intake including a lack of fluids. They think this is been progressive in the multiple times the visit the patient in the facility. They deny that the patient had complained of anything such as back pain, dysuria, chest pain, or fevers. They did note on one visit the patient was leaning forward as if in pain but patient did not express anything and did not localize any sort of symptoms. The this was similar to the patient's previous symptoms back in the over the summer and the patient has been admitted here with acute UTI a gram-negative septicemia. Patient had lab work in the facility which showed an extremely high calcium. Urinalysis was not sent over with the patient but the urine culture grew ESBL E. coli with multiple resistances. The patient has been treated for the past 4 days with ertapenem without improvement in the patient's symptoms. Daughters tell me the patient was ultimately sent over the hospital secondary to her hypercalcemia. Patient herself seems to be somewhat lethargic although she does wake up and answer some questions. She is concerned about having her nails cut but expresses no significant complaints. Vital signs are stable. Allergies Allergy/AdvReac Type Severity Reaction Status Date / Time amoxicillin Allergy Mild RASH Verified 11/07/19 13:03 Home Medications Home Medications Medication Instructions Recorded Confirmed Type acetaminophen 325 mg capsule 650 mg PO Q6H PRN cap 07/11/18 11/07/19 History atorvastatin 20 mg tablet 20 mg PO QPM tab 07/11/18 11/07/19 History clopidogrel 75 mg tablet 75 mg PO DAILY tab 07/11/18 11/07/19 History cyanocobalamin (vitamin B-12) 100 mcg IM UD ea 07/11/18 11/07/19 History 1,000 mcg/mL injection kit ferrous sulfate 325 mg (65 mg 325 mg PO BID tab 07/11/18 11/07/19 History iron) tablet loratadine 10 mg tablet 10 mg PO DAILY 07/11/18 11/07/19 History omega [id number]-hjj-[id number]-fish oil 100 1 cap PO DAILY cap 07/11/18 11/07/19 History mg-160 mg-1,000 mg capsule levothyroxine 88 mcg capsule 88 mcg PO DAILY 07/20/18 11/07/19 History Eliquis 2.5 mg PO BID 06/21/19 11/07/19 History Restasis 1 drp OPHTHALMIC (EYE) Q12H 06/21/19 11/07/19 History ascorbic acid (vitamin C) [Vitamin 250 mg PO BID 06/21/19 11/07/19 History C] azelastine 1 spray INTRANASAL BID 06/21/19 11/07/19 History bisacodyl [Dulcolax (bisacodyl)] 10 mg NM DIRECTED PRN 06/21/19 11/07/19 History cholecalciferol (vitamin D3) 1,000 unit PO DAILY 06/21/19 11/07/19 History [Vitamin D3] magnesium hydroxide [Milk of 30 ml PO DIRECTED PRN 06/21/19 11/07/19 History Magnesia] sodium chloride [Saline Nasal] 2 spray INTRANASAL DAILY PRN 06/21/19 11/07/19 History Lactobacillus acidoph-L.bulgar 4 tab PO QIDM #0 tab 06/26/19 11/07/19 Rx [Floranex] atenolol 50 mg PO BID #60 tab 06/26/19 11/07/19 Rx calcium carbonate [Oyster Shell 1,250 mg PO BID #0 tab 06/26/19 11/07/19 Rx Calcium 500] ertapenem 1 g IV DAILY 11/07/19 11/07/19 History multivitamin with iron-mineral 1 tab PO DAILY 11/07/19 11/07/19 History Past Med/Surg History Medical History A-fib Born in [facility] (Chronic) Chronic kidney disease (Chronic) DVT (deep venous thrombosis) (Chronic) Dyslipidemia (Chronic) Encounter for colonoscopy due to history of adenomatous colonic polyps (Chronic) Exploratory laparotomy scar (Chronic) HTN (hypertension) (Chronic) Hypothyroid (Chronic) Osteoporosis (Chronic) Pacemaker Parkinson disease (Chronic) TIA (transient ischemic attack) (Chronic) Surgical History History of tonsillectomy and adenoidectomy (Chronic) Hx of cardiac pacemaker Family History Other No pertinent family history Social History Preferred Language: Syrian Communication Ability: Effective Health Counselor Required: No Current Living Situation: [facility] Feels Safe at Home: Yes Smoking Status: Never smoker Hx Alcohol Use: No Hx Substance Use: No Review of Systems Review of Systems: Unobtainable due to reduced consciousness Physical Exam Constitutional: + frail appearing and + underweight; no acute distress and not in distress ENMT: Mouth: + dry oral mucous membranes and + dentures Neck: normal visual inspection Respiratory: normal respiratory effort, lungs clear to auscultation Auscultation: lungs clear to auscultation bilaterally; no crackles, no rales and no wheezes Cardiovascular: Rate/Rhythm: regular rate and regular rhythm Heart Sounds: normal S1 and normal S2 Vessels: no JVD and no carotid bruit Gastrointestinal (Abdomen): Inspection/Auscultation: abdomen normal to inspection Percussion/Palpation: abdomen soft; no guarding, abdomen not rigid and no hepatomegaly Musculoskeletal: Extremities: extremities normal to inspection and + limited ROM of extremities (Significant rigidity of the upper extremities with extension of the elbows bilaterally) Skin: no rashes, warm and dry Neurologic: awake and + confused Psychiatric: Orientation: alert and oriented to person Lymphatic: no cervical or axillary lymphadenopathy Results & Data Vital Signs (Past 12 Hours) Vital Signs Temp Pulse Resp BP Pulse Ox 11/07/19 12:57 100 11/07/19 12:48 100 11/07/19 12:32 36.5 C 66 17 121/88 Laboratory Results Laboratory work reviewed. The BCs of 10.98. INR is 1.3. Sodium is 146. We will is 72 with creatinine of 1.54 which seems approximately her baseline. Calcium is is 12.8, corrects to 13.5 with an albumin of 3.4. Troponin is 0.137, I was told previously that this is chronically elevated. TSH is 0.233. Urinalysis shows only trace leuk esterases but was otherwise unremarkable. Diagnostic Findings CT head/brain wo con CLINICAL HISTORY: Acute change in mental status UNRESPONSIVE PATIENT COMPARISON STUDY: 09/20/2016 TECHNIQUE: Axial CT of the brain is performed from the vertex to the skull base. IV contrast was not administered for this examination. A dose lowering technique was utilized adhering to the principles of ALARA. CT DOSE: 537.48 mGy.cm FINDINGS: No intra or extra-axial mass lesions are visualized. There is no CT evidence of acute cortical infarction. There is no evidence of midline shift. There is no acute hemorrhage. No calvarial fractures are visualized. There are moderate white matter hypodensities likely on a small vessel basis. There is basal ganglial mineralization. There are diffuse atrophic changes. There is mild ventricular dilatation, finding which is felt to be secondary to volume loss. There is no evidence of acute sinusitis IMPRESSION: No acute intracranial findings --- XR chest 1V portable HISTORY: 89 years-old Female ams . Acutely altered mental status COMPARISON: Chest radiograph 06/25/2018 TECHNIQUE: Portable AP view of the chest FINDINGS: Cardiac silhouette is enlarged, unchanged. Calcified plaque of the thoracic aortic arch. Unchanged left subclavian pacer. Large hiatal hernia. No pne umothorax. Blunting of the costophrenic angles suggests trace effusions. Minimal left basilar atelectasis. Calcific granuloma of the right upper lung. Longitudinally oriented lucency projecting over the left midlung suggests skin fold. Degenerative changes of the shoulders and spine. IMPRESSION: 1. Cardiomegaly without overt pulmonary edema. 2. Trace pleural effusions with mild left basilar atelectasis. 3. Large hiatal hernia. PG Care Time/CCT Total # of Minutes Spent Total Time Spent with Patient: Total time spent is greater than 50% in coordination of care (as documented) at patient's floor/unit and/or counseling patient:
[2019-11-07] MEDS ORDERED: bisacodyL 10 MG SUPP PR PRN (15:57)
[2019-11-07] MEDS ORDERED: SODIUM CHLORIDE 0.65% NA SOLN 45 ML (OCEAN) PRN (15:57)
[2019-11-07] MEDS ORDERED: MAGNESIUM HYDROXIDE SUSP 30 ML UDC PO PRN (15:57)
[2019-11-07] MEDS ORDERED: NON-FORMULARY MEDICATION (Cyclosporine [Restasis] 1 DROPS) OP SCH (16:00)
[2019-11-07] MEDS ORDERED: NON-FORMULARY MEDICATION (Cyanocobalamin (Vitamin B-12) 100 MCG) IM SCH (16:00)
[2019-11-07] MEDS ORDERED: ZOLEDRONIC ACID 4 MG in 0.9 % SODIUM CHLORIDE 100 ML IV STA (17:43)
--- NOTE | 2019-11-07 18:15 | Emergency Department Note ---
Entered by Shikha Dumont acting as a scribe for Bob Mcfadden History of Present Illness General Chief complaint: Urinary Symptoms Stated complaint: UTI/lethargic Time Seen by Provider: 11/07/19 12:24 Source: patient, family (daughter) and EMS History of Present Illness Onset (ago): week(s) (1) Location: pelvis Pain Consistency: + constant Quality: + other (urinary symptoms) Associated symptoms: + fever/chills, + loss of appetite and + other (altered mental status, dehydration) The patient is a 89 year old female who presents to the Emergency Room with complaints of constant urinary symptoms beginning one week ago. EMS reports the patient has starting to become more altered mentally and more dehydrated over the past few days. EMS reports the patient was started on an antibiotic 4 days ago. EMS reports the patient has not been eating or drinking normally. EMS notes the patient's calcium level was high today. EMS states the patient had a low grade fever of 99 today. EMS notes the patient lives at [facility]. The patient's daughter reports the patient has been very lethargic recently. Home Medications Home Medications Medication Instructions Recorded Confirmed Type acetaminophen 325 mg capsule 650 mg PO Q6H PRN cap 07/11/18 11/07/19 History atorvastatin 20 mg tablet 20 mg PO QPM tab 07/11/18 11/07/19 History clopidogrel 75 mg tablet 75 mg PO DAILY tab 07/11/18 11/07/19 History cyanocobalamin (vitamin B-12) 100 mcg IM UD ea 07/11/18 11/07/19 History 1,000 mcg/mL injection kit ferrous sulfate 325 mg (65 mg 325 mg PO BID tab 07/11/18 11/07/19 History iron) tablet loratadine 10 mg tablet 10 mg PO DAILY 07/11/18 11/07/19 History omega 5-eju-ggx-fish oil 100 1 cap PO DAILY cap 07/11/18 11/07/19 History mg-160 mg-1,000 mg capsule levothyroxine 88 mcg capsule 88 mcg PO DAILY 07/20/18 11/07/19 History Eliquis 2.5 mg PO BID 06/21/19 11/07/19 History Restasis 1 drp OPHTHALMIC (EYE) Q12H 06/21/19 11/07/19 History ascorbic acid (vitamin C) [Vitamin 250 mg PO BID 06/21/19 11/07/19 History C] azelastine 1 spray INTRANASAL BID 06/21/19 11/07/19 History bisacodyl [Dulcolax (bisacodyl)] 10 mg HI DIRECTED PRN 06/21/19 11/07/19 History cholecalciferol (vitamin D3) 1,000 unit PO DAILY 06/21/19 11/07/19 History [Vitamin D3] magnesium hydroxide [Milk of 30 ml PO DIRECTED PRN 06/21/19 11/07/19 History Magnesia] sodium chloride [Saline Nasal] 2 spray INTRANASAL DAILY PRN 06/21/19 11/07/19 History Lactobacillus acidoph-L.bulgar 4 tab PO QIDM #0 tab 06/26/19 11/07/19 Rx [Floranex] atenolol 50 mg PO BID #60 tab 06/26/19 11/07/19 Rx calcium carbonate [Oyster Shell 1,250 mg PO BID #0 tab 06/26/19 11/07/19 Rx Calcium 500] ertapenem 1 g IV DAILY 11/07/19 11/07/19 History multivitamin with iron-mineral 1 tab PO DAILY 11/07/19 11/07/19 History Allergies Allergy/AdvReac Type Severity Reaction Status Date / Time amoxicillin Allergy Mild RASH Verified 11/07/19 13:03 Past Med/Surg History Medical History A-fib Born in [facility] (Chronic) Chronic kidney disease (Chronic) DVT (deep venous thrombosis) (Chronic) Dyslipidemia (Chronic) Encounter for colonoscopy due to history of adenomatous colonic polyps (Chronic) Exploratory laparotomy scar (Chronic) HTN (hypertension) (Chronic) Hypothyroid (Chronic) Osteoporosis (Chronic) Pacemaker Parkinson disease (Chronic) TIA (transient ischemic attack) (Chronic) Surgical History History of tonsillectomy and adenoidectomy (Chronic) Hx of cardiac pacemaker Family History Other No pertinent family history Social History Preferred Language: Mauritanian Communication Ability: lethagy Space Technologist Required: No Beliefs That Will Affect Care: None Current Living Situation: Alf Other Information That Helps Us Care for You: No Feels Safe at Home: Yes Safety Concerns: Feels Safe At This Time Smoking Status: Never smoker Do You Dip or Chew Tobacco: No ; Second Hand Exp osure: No ; Tobacco Cessation Education Requested by Patient: No Hx Alcohol Use: No Hx Substance Use: No Review of Systems See HPI for pertinent positives & negatives. and A total of 10 systems reviewed and were otherwise negative Physical Exam Vital Signs Vital Signs - 24 hr 11/07/19 12:31 11/07/19 12:32 11/07/19 12:48 Temperature 36.5 C Temperature Source Oral Pulse Rate 66 66 Pulse Rate from SpO2 Sensor Pulse Rhythm Regular Pulse Strength Normal Respiratory Rate 21 17 Respiratory Effort / Characteristics Non-Labored Spontaneous Respiratory Depth Normal Blood Pressure 121/88 121/88 Blood Pressure Mean 96 99 Blood Pressure Position Lying Pulse Oximetry 100 100 Oxygen Delivery Method Room Air Room Air Sepsis Recent Fever Within 48 Hours No Sepsis New/Unexplained Change in Mental Status No Sepsis Action Taken by Nursing No Action Required 11/07/19 12:57 11/07/19 13:01 11/07/19 14:30 Temperature Temperature Source Pulse Rate 66 65 Pulse Rate from SpO2 Sensor 67 Pulse Rhythm Pulse Strength Respiratory Rate 19 23 Respiratory Effort / Characteristics Respiratory Depth Blood Pressure 122/59 L 151/97 H Blood Pressure Mean 88 117 Blood Pressure Position Pulse Oximetry 100 99 99 Oxygen Delivery Method Room Air Sepsis Recent Fever Within 48 Hours Sepsis New/Unexplained Change in Mental Status Sepsis Action Taken by Nursing 11/07/19 15:49 11/07/19 16:00 Temperature Temperature Source Pulse Rate 67 72 Pulse Rate from SpO2 Sensor 67 Pulse Rhythm Pulse Strength Respiratory Rate 21 20 Respiratory Effort / Characteristics Respiratory Depth Blood Pressure 137/68 127/73 Blood Pressure Mean 99 80 Blood Pressure Position Pulse Oximetry 98 99 Oxygen Delivery Method Sepsis Recent Fever Within 48 Hours Sepsis New/Unexplained Change in Mental Status Sepsis Action Taken by Nursing HENT: Exam performed. Head: Normocephalic and atraumatic. Right Ear: External ear normal. No mastoid tenderness. Left Ear: External ear normal. No mastoid tenderness. Mouth/Throat: The oropharynx is clear and moist. No trismus in the jaw. No dental abscesses or uvula swelling. No oropharyngeal exudate or tonsillar abscesses. EYES: Conjunctivae and EOM are normal. Pupils are equal, round, and reactive to light. Right eye exhibits no discharge. Left eye exhibits no discharge. No scleral icterus. NECK: Normal range of motion. Neck supple. No JVD present. No spinous process tenderness present. No carotid bruit present. No rigidity. No tracheal deviation and normal range of motion present. No Brudzinski's sign and no Kernig's sign noted. CV: Normal rate, regular rhythm, normal heart sounds and intact distal pulses. There is no peripheral edema. Palpable radial pulses bue. PULM/CHEST: Effort normal and breath sounds normal. No respiratory distress. No stridor. She has no wheezes. She has mild inspiratory rales at the bases. Chest Wall: She exhibits no tenderness. ABD: The abdomen is soft. Bowel sounds are normal. She has no distension. No mass is present. There is no tenderness. There is no rebound, no guarding, no Holley's sign and no tenderness at McBurney's point. Rovsig negative MUSC/SKEL: Normal range of motion. There is no peripheral edema, tenderness or deformity. LYMPH: No cervical adenopathy. SKIN: Skin is warm and dry. She is not diaphoretic. Course Course 1250: Past medical records reviewed. The patient has a history of Parkinson's, aortic valve endocarditis, anemia, ecoli, and sepsis secondary to a UTI. Cultures grew out ESBL E. coli in June. Urine cultures on November 04 showed E. coli that was sensitive to amikacin, Cefoxitin, Ertapenem, nitrofurantoin, and pip/tazo. The patient has a DNR. The patient was evaluated in room C03. A complete history and physical exam was performed. 1515: Upon reevaluation, the patient's vital signs were stable. Labs showed a calcium level of 12.8 and a troponin of 0.137. Patient's troponin is chronically elevated. Imaging is within normal limits. Given patient's urine culture which grew out ESBL, the patient was started on Invanz and will be further evaluated. I spoke with Dr. Suazo - [facility] Hospitalist who agrees to accept the patient for further evaluation. Administered Medications Sodium Chloride (Nss 1000ml) 1,000 mls @ 125 mls/hr IV .Q8H NOHEMI Stop: 12/07/19 12:59 Last Admin: 11/07/19 14:22 Dose: 125 mls/hr Documented by: [id number] Discontinued Medications Ertapenem (Invanz) 10 mls @ 2 mls/min IV NOW STA Stop: 11/07/19 13:25 Last Admin: 11/07/19 14:22 Dose: 2 mls/min Documented by: [id number] Medical Decision Making Medical Records Attestation: I reviewed the patient's medical records. Home Medications Current Medication List: was personally reviewed by me Laboratory Data Attestation: I reviewed the patient's lab results. Result diagrams: 11/07/19 13:30 11/07/19 14:23 Lab Results 11/07/19 11/07/19 11/07/19 Range/Units 13:03 13:06 13:30 WBC 10.98 H (4.8-10.8) K/uL RBC 4.56 (4.2-5.4) M/uL Hgb 14.0 (12.0-16.0) g/dL Hct 44.1 (37-47) % MCV 96.7 (80-100) fL MCH 30.7 (25-34) pg MCHC 31.7 L (32-36) g/dL RDW Std Deviation 54.4 H (36.4-46.3) fL RDW Coeff of Stephani 16.1 H (11.5-14.5) % Plt Count 271 (130-400) K/uL MPV 10.6 H (7.4-10.4) fL Immature Gran % (Auto) 0.6 % Neut % (Auto) 70.6 % Lymph % (Auto) 18.9 % Garrett % (Auto) 8.7 % Eos % (Auto) 0.9 % Baso % (Auto) 0.3 % Immature Gran # (Auto) 0.07 H (0.00-0.02) K/uL Neut # (Auto) 7.74 H (1.4-6.5) K/uL Lymph # (Auto) 2.08 (1.2-3.4) K/uL Garrett # (Auto) 0.96 H (0.11-0.59) K/uL Eos # (Auto) 0.10 (0-0.5) K/uL Baso # (Auto) 0.03 (0-0.2) K/uL PT (9.0-12.0) Seconds INR (0.9-1.1) APTT (21.0-31.0) Seconds PTT Ratio Sodium (136-145) mmol/L Potassium (3.5-5.1) mmol/L Chloride (98-107) mmol/L Carbon Dioxide (21-32) mmol/L Anion Gap (3-11) BUN (7-18) mg/dl Creatinine (0.6-1.2) mg/dl Est Cr Clr Drug Dosing ml/min Est GFR ( Amer) Est GFR (Non-Af Amer) BUN/Creatinine Ratio (10-20) Glucose (70-99) mg/dl POC Glucose 118 H (70-99) Lactate (0.4-2.0) mmol/L Calcium (8.5-10.1) mg/dl Magnesium (1.8-2.4) mg/dl Total Bilirubin (0.2-1) mg/dl Direct Bilirubin (0-0.2) mg/dl AST (15-37) U/L ALT (12-78) U/L Alkaline Phosphatase (45-117) U/L Troponin I (0-0.045) ng/ml Total Protein (6.4-8.2) gm/dl Albumin (3.4-5.0) gm/dl Lipase (73-393) U/L Urine Color Urine Appearance (Clear) Urine pH (4.5-7.5) Ur Specific [place] (1.000-1.030) Urine Protein (Negative) Urine Glucose (UA) (Negative) Urine Ketones (Negative) Urine Blood (Negative) Urine Nitrite (Negative) Urine Bilirubin (Negative) Urine Urobilinogen (Negative) Ur Leukocyte Esterase (Negative) Urine WBC (Auto) (0-5) /hpf Urine RBC (Auto) (0-4) /hpf U Hyaline Cast (Auto) (0-5) /lpf U Epithel Cells (Auto) (0-5) /lpf Urine Bacteria (Auto) (Negative) Influenza Type A (PCR) Neg for Influ A (Neg) Influenza Type B (PCR) Neg for Influ B (Neg) 11/07/19 11/07/19 11/07/19 Range/Units 13:30 13:30 13:40 WBC (4.8-10.8) K/uL RBC (4.2-5.4) M/uL Hgb (12.0-16.0) g/dL Hct (37-47) % MCV (80-100) fL MCH (25-34) pg MCHC (32-36) g/dL RDW Std Deviation (36.4-46.3) fL RDW Coeff of Stephani (11.5-14.5) % Plt Count (130-400) K/uL MPV (7.4-10.4) fL Immature Gran % (Auto) % Neut % (Auto) % Lymph % (Auto) % Garrett % (Auto) % Eos % (Auto) % Baso % (Auto) % Immature Gran # (Auto) (0.00-0.02) K/uL Neut # (Auto) (1.4-6.5) K/uL Lymph # (Auto) (1.2-3.4) K/uL Garrett # (Auto) (0.11-0.59) K/uL Eos # (Auto) (0-0.5) K/uL Baso # (Auto) (0-0.2) K/uL PT 13.4 H (9.0-12.0) Seconds INR 1.3 H (0.9-1.1) APTT 25.9 (21.0-31.0) Seconds PTT Ratio 1.0 Sodium 146 H (136-145) mmol/L Potassium (3.5-5.1) mmol/L Chloride 107 (98-107) mmol/L Carbon Dioxide 35 H (21-32) mmol/L Anion Gap 4.0 (3-11) BUN 72 H (7-18) mg/dl Creatinine 1.54 H (0.6-1.2) mg/dl Est Cr Clr Drug Dosing 17.8 ml/min Est GFR ( Amer) 34.3 Est GFR (Non-Af Amer) 29.6 BUN/Creatinine Ratio 46.6 H (10-20) Glucose 113 H (70-99) mg/dl POC Glucose (70-99) Lactate 1.4 (0.4-2.0) mmol/L Calcium 12.8 H* (8.5-10.1) mg/dl Magnesium (1.8-2.4) mg/dl Total Bilirubin 0.4 (0.2-1) mg/dl Direct Bilirubin (0-0.2) mg/dl AST (15-37) U/L ALT 48 (12-78) U/L Alkaline Phosphatase 138 H (45-117) U/L Troponin I 0.137 H* (0-0.045) ng/ml Total Protein 7.6 (6.4-8.2) gm/dl Albumin 3.1 L (3.4-5.0) gm/dl Lipase 120 (73-393) U/L Urine Color Urine Appearance (Clear) Urine pH (4.5-7.5) Ur Specific [place] (1.000-1.030) Urine Protein (Negative) Urine Glucose (UA) (Negative) Urine Ketones (Negative) Urine Blood (Negative) Urine Nitrite (Negative) Urine Bilirubin (Negative) Urine Urobilinogen (Negative) Ur Leukocyte Esterase (Negative) Urine WBC (Auto) (0-5) /hpf Urine RBC (Auto) (0-4) /hpf U Hyaline Cast (Auto) (0-5) /lpf U Epithel Cells (Auto) (0-5) /lpf Urine Bacteria (Auto) (Negative) Influenza Type A (PCR) (Neg) Influenza Type B (PCR) (Neg) 11/07/19 11/07/19 Range/Units 14:00 14:23 WBC (4.8-10.8) K/uL RBC (4.2-5.4) M/uL Hgb (12.0-16.0) g/dL Hct (37-47) % MCV (80-100) fL MCH (25-34) pg MCHC (32-36) g/dL RDW Std Deviation (36.4-46.3) fL RDW Coeff of Stephani (11.5-14.5) % Plt Count (130-400) K/uL MPV (7.4-10.4) fL Immature Gran % (Auto) % Neut % (Auto) % Lymph % (Auto) % Garrett % (Auto) % Eos % (Auto) % Baso % (Auto) % Immature Gran # (Auto) (0.00-0.02) K/uL Neut # (Auto) (1.4-6.5) K/uL Lymph # (Auto) (1.2-3.4) K/uL Garrett # (Auto) (0.11-0.59) K/uL Eos # (Auto) (0-0.5) K/uL Baso # (Auto) (0-0.2) K/uL PT (9.0-12.0) Seconds INR (0.9-1.1) APTT (21.0-31.0) Seconds PTT Ratio Sodium (136-145) mmol/L Potassium 3.8 (3.5-5.1) mmol/L Chloride (98-107) mmol/L Carbon Dioxide (21-32) mmol/L Anion Gap (3-11) BUN (7-18) mg/dl Creatinine (0.6-1.2) mg/dl Est Cr Clr Drug Dosing ml/min Est GFR ( Amer) Est GFR (Non-Af Amer) BUN/Creatinine Ratio (10-20) Glucose (70-99) mg/dl POC Glucose (70-99) Lactate (0.4-2.0) mmol/L Calcium (8.5-10.1) mg/dl Magnesium 2.2 (1.8-2.4) mg/dl Total Bilirubin (0.2-1) mg/dl Direct Bilirubin < 0.1 (0-0.2) mg/dl AST 41 H (15-37) U/L ALT (12-78) U/L Alkaline Phosphatase (45-117) U/L Troponin I (0-0.045) ng/ml Total Protein (6.4-8.2) gm/dl Albumin (3.4-5.0) gm/dl Lipase (73-393) U/L Urine Color Yellow Urine Appearance Clear (Clear) Urine pH 5.0 (4.5-7.5) Ur Specific [place] 1.016 (1.000-1.030) Urine Protein Negative (Negative) Urine Glucose (UA) Negative (Negative) Urine Ketones Negative (Negative) Urine Blood Negative (Negative) Urine Nitrite Negative (Negative) Urine Bilirubin Negative (Negative) Urine Urobilinogen Negative (Negative) Ur Leukocyte Esterase Trace H (Negative) Urine WBC (Auto) 1-5 (0-5) /hpf Urine RBC (Auto) 0-4 (0-4) /hpf U Hyaline Cast (Auto) 1-5 (0-5) /lpf U Epithel Cells (Auto) 10-20 H (0-5) /lpf Urine Bacteria (Auto) Negative (Negative) Influenza Type A (PCR) (Neg) Influenza Type B (PCR) (Neg) Imaging Data Radiologist's Impression: Radiology results as stated below per my review and the radiologist's interpretation: XR chest 1V portable HISTORY: 89 years-old Female ams . Acutely altered mental status COMPARISON: Chest radiograph 06/25/2018 TECHNIQUE: Portable AP view of the chest FINDINGS: Cardiac silhouette is enlarged, unchanged. Calcified plaque of the thoracic aortic arch. Unchanged left subclavian pacer. Large hiatal hernia. No pneumothorax. Blunting of the costophrenic angles suggests trace effusions. Minimal left basilar atelectasis. Calcific granuloma of the right upper lung. Longitudinally oriented lucency projecting over the left midlung suggests skin fold. Degenerative changes of the shoulders and spine. IMPRESSION: 1. Cardiomegaly without overt pulmonary edema. 2. Trace pleural effusions with mild left basilar atelectasis. 3. Large hiatal hernia. ACT 112: Negative or not required by law. The above report was generated using voice recognition software. It may contain grammatical, syntax or spelling errors. Electronically signed by: Edwin Fajardo M.D. 11/07/2019 1:[address] head/brain wo con CLINICAL HISTORY: Acute change in mental status UNRESPONSIVE PATIENT COMPARISON STUDY: 09/20/2016 TECHNIQUE: Axial CT of the brain is performed from the vertex to the skull base. IV contrast was not administered for this examination. A dose lowering technique was utilized adhering to the principles of ALARA. CT DOSE: 537.48 mGy.cm FINDINGS: No intra or extra-axial mass lesions are visualized. There is no CT evidence of acute cortical infarction. There is no evidence of midline shift. There is no acute hemorrhage. No calvarial fractures are visualized. There are moderate white matter hypodensities likely on a small vessel basis. There is basal ganglial mineralization. There are diffuse atrophic changes. There is mild ventricular dilatation, finding which is felt to be secondary to volume loss. There is no evidence of acute sinusitis IMPRESSION: No acute intracranial findings ACT 112: Negative or not required by law. Electronically signed by: Get Santizo M.D. 11/07/2019 2:09 PM Dictated: 11/07/19 1408 Transcribed: 11/07/19 1408 ECG Data Attestation: I personally reviewed and interpreted this ECG as follows: Indication: + altered mental status Rate (beats per minute): 64 Rhythm: + other (paced rhythm) ECG Intervals/blocks: + Normal QRS, + Normal QT and + Normal HI ECG ST segments: no ST depression and no ST elevation Blood Pressure Blood Pressure Findings: Elevated blood pressure Blood Pressure Disposition: further management by hospitalist RYAN Narrative 1250: Past medical records reviewed. The patient has a history of Parkinson's, aortic valve endocarditis, anemia, ecoli, and sepsis secondary to a UTI. Cultures grew out ESBL E. coli in June. Urine cultures on November 04 showed E. coli that was sensitive to amikacin, Cefoxitin, Ertapenem, nitrofurantoin, and pip/tazo. The patient has a DNR. The patient was evaluated in room C03. A complete history and physical exam was performed. 1515: Upon reevaluation, the patient's vital signs were stable. Labs showed a calcium level of 12.8 and a troponin of 0.137. Patient's troponin is chronically elevated. Imaging is within normal limits. Given patient's urine culture which grew out ESBL, the patient was started on Invanz and will be further evaluated. I spoke with Dr. Suazo - [facility] Hospitalist who agrees to accept the patient for further evaluation. Impression & Plan Hypercalcemia, UTI (urinary tract infection) Discharge Plan Visit Data *Final* Discharge Date/Time: 11/07/19 16:55 Chief Complaint: Urinary Symptoms Stated Complaint: UTI/lethargic ED Provider: Bob Mcfadden Discharge Problem: Hypercalcemia, UTI (urinary tract infection) Patient Disposition: Admitted As Inpatient Discharge Instructions Interventions: ED Discharge Assessment Last Done: 11/07/19 16:55 Discharge Problem: UTI (urinary tract infection) Qualifiers: Urinary tract infection type: site unspecified Hematuria presence: without hematuria Qualified Code(s): N39.0 - Urinary tract infection, site not specified The scribe's documentation has been prepared under my direction and personally reviewed by me in its entirety. I confirm that the note above accurately reflects all work, treatment, procedures, and medical decision making performed by me.
[2019-11-07] MEDS: LACTOBACILLUS ACIDOPHILUS (FLORANEX) TAB PO SCH ×2 (18:17→20:25)
[2019-11-07] MEDS: SODIUM CHLORIDE 0.45 % 1,000 ML IV SCH (18:17)
--- NOTE | 2019-11-07 18:49 | CT Scan Report ---
CT SCAN OF THE CHEST WITHOUT IV CONTRAST CLINICAL HISTORY: Hypercalcemia. COMPARISON STUDY: Chest x-ray dated 11/07/2019. TECHNIQUE: CT scan of the thorax was performed from the thoracic inlet to the upper abdomen. Images are reviewed in the axial, sagittal, and coronal planes. IV contrast was not administered for this ex amination as per the referring clinician. A dose lowering technique was utilized ad[facility] to the [facility]HEMI. The examination is degraded by motion artifact, as well as by streak artifact from the arms which could not be elevated above the chest. CT DOSE: 199.34 mGy.cm FINDINGS: Thyroid: The thyroid gland is atrophic and heterogeneous and attenuation. Thoracic aorta: There is atherosclerotic calcification of the thoracic aorta, which is normal in jessica gala and demonstrates standard 3-vessel arch anatomy. Atherosclerotic calcification is also noted in t he carotid bulbs. Heart: A 2-lead cardiac pacemaker is noted in the left chest wall. The heart is enlarged and without pericardial effusion. The coronary arteries and mitral annulus are densely calcified. Lungs and pleural spaces: Evaluation of the lung parenchyma is compromised by motion artifact. There is no airspace consolidation typical for pneumonia. Trace pleural effusions are noted. Scarring/atele ctasis is seen at the lung bases. There are numerous calcified granulomas. Mediastinum: There is no mediastinal lymphadenopathy. Calcified nodes are noted. Naz: Not well assessed without IV contrast. Axillae: There is no axillary lymphadenopathy. Upper abdomen: There is a large hiatal hernia. Numerous calcified granulomas are identified in the li pee and spleen. Skeletal structures: The skeletal structures are osteopenic. Degenerative change and hyperkyphosis ar e noted throughout the thoracic spine. Advanced arthritic changes seen in the shoulders. No lytic or blastic bony lesions are seen. IMPRESSION: 1. Streak and motion compromised examination. 2. Cardiomegaly and trace pleural effusions. 3. There is no airspace consolidation typical for pneumonia. 4. Large hiatal hernia. 5. Additional findings as above. ACT 112: Negative or not required by law. Electronically signed by: Bryan Borges M.D. 11/07/2019 6:47 PM
[2019-11-07] MEDS: ATENOLOL 50 MG TABLET PO SCH (20:24)
[2019-11-07] MEDS: APIXABAN 2.5 MG TAB PO SCH (20:24)
[2019-11-07] MEDS: FERROUS SULFATE 325 MG TAB PO SCH (20:24)
[2019-11-07] MEDS: ATORVASTATIN 20 MG TAB PO SCH (20:25)
[2019-11-07] MEDS ORDERED: NON-FORMULARY MEDICATION (Azelastine 1 SPRAYS) INTNAS SCH (21:00)
[2019-11-07] MEDS: *AZELASTINE*ORDER AWAITING ACTION SCH (23:57)
[2019-11-07] MEDS: *RESTASIS*ORDER AWAITING ACTION SCH (23:58)
[2019-11-08 05:54] LABS: Basophils # (auto) 0.03 K/uL (0-0.2); Basophils % (auto) 0.3 %; Eosinophils # (auto) 0.19 K/uL (0-0.5); Eosinophils % (auto) 1.7 %; Hematocrit (blood only) 39.4 % (37-47); Hemoglobin 12.5 g/dL (12.0-16.0); Immature Granulocytes # (auto) 0.05 K/uL (0.00-0.02); Immature Granulocytes % (auto) 0.5 %; Lymphocytes # (auto) 1.98 K/uL (1.2-3.4); Mean Corpuscular Hgb Conc 31.7 g/dL (32-36); Mean Corpuscular Volume 94.5 fL (80-100); Mean Platelet Volume 9.9 fL (7.4-10.4); Monocytes # (auto) 0.83 K/uL (0.11-0.59); Monocytes % (auto) 7.6 %; Neutrophils # (auto) 7.89 K/uL (1.4-6.5); Neutrophils % (auto) 71.9 %; Platelet Count 223 K/uL (130-400); RDW Coefficient of Variation 15.8 % (11.5-14.5); RDW Standard Deviation 53.2 fL (36.4-46.3); Red Blood Count 4.17 M/uL (4.2-5.4); White Blood Count 10.97 K/uL (4.8-10.8)
[2019-11-08] MEDS: SODIUM CHLORIDE 0.45 % 1,000 ML IV SCH ×2 (06:00→20:20)
[2019-11-08] MEDS: LEVOTHYROXINE SODIUM 88 MCG TABLET PO SCH (06:00)
[2019-11-08 06:23] LABS: Calcium 11.1 mg/dl (8.5-10.1); Creatinine Clr Calc Pharmacy 21.2 ml/min; Est GFR (African American) 42.5; Est GFR (Non-African American) 36.7; Potassium 3.4 mmol/L (3.5-5.1)
[2019-11-08] MEDS: *RESTASIS*ORDER AWAITING ACTION SCH ×3 (07:40→20:51)
[2019-11-08] MEDS: *AZELASTINE*ORDER AWAITING ACTION SCH ×3 (07:40→20:49)
[2019-11-08] MEDS ORDERED: POTASSIUM CHLORIDE 20 MEQ TABCR PO STA (09:03)
[2019-11-08] MEDS: CLOPIDOGREL BISULFATE 75 MG TAB PO SCH (09:44)
[2019-11-08] MEDS: OMEGA-3 (PURIFIED FISH OIL) 1 GM CAP PO SCH (09:44)
[2019-11-08] MEDS: ATENOLOL 50 MG TABLET PO SCH ×2 (09:44→20:23)
[2019-11-08] MEDS: MULTIVITAMIN TAB PO SCH (09:44)
[2019-11-08] MEDS: LACTOBACILLUS ACIDOPHILUS (FLORANEX) TAB PO SCH ×4 (09:44→20:22)
[2019-11-08] MEDS: APIXABAN 2.5 MG TAB PO SCH ×2 (09:44→20:21)
[2019-11-08] MEDS: FERROUS SULFATE 325 MG TAB PO SCH ×2 (09:44→20:21)
[2019-11-08] MEDS: LORATADINE 10 MG TAB PO SCH (09:44)
[2019-11-08] MEDS: CHOLECALCIFEROL 1,000 UNITS TAB PO SCH (09:45)
--- NOTE | 2019-11-08 10:03 | Hospitalist Progress Note ---
Date of Service November 08, 2019 Assessment & Plan (1) Hypercalcemia: 89yoF [facility] facility ([facility]) resident with hx of Parkinson's disease, hypertension, stage 3 chronic kidney disease, paroxysmal atrial fibrillation and sick sinus syndrome status post Medtronic dual-chamber pacemaker, and peripheral artery disease previously treated with QUANTITATIVE MANAGER of right popliteal/tibioperoneal trunk in the setting right great toe ulceration/osteomyelitis presents with concern for elevated calcium and lethargy from alf Hypercalcemia Likely secondary to dehydration vs. neoplasm Pt was on calcium and Vit D supplement at [facility] but no thiazide diuretics or any other medications that could explain Received zoledronic acid infusion on 11/07/19, may require repeat treatment in 2-3 weeks ago if unresolved Corrected Ca 13 on admit, now 11.3, ICa 1.49 PTH low at 12.4, Vit D 51.6, Phos 2.6 PTHrP, SPEP and UPEP pending CT chest: cardiomegaly, trace pleural effision, large hiatal hernia CT abdomen/pelvis w/ot contrast: pending On 11/16 NS at 80cc/hr Consider calcitonin if continues to be elevated despite hydration or Lasix if renal function improves EMERY on CKD/Dehydration BUN/Cr on presentation 72/1.54 (baseline Cr 1.1, GFR 30-40) Improved to 63/1.29 Continue 1/2NS at 80cc/hr Asymptomatic Bacteriuria UCx 11/02: ESBL E. Coli >100k colonies Received Ertapenem x 4 days UA on admission: trace leuk est, 10-20 epi only No further abx treatment at this time PAD with recurrent RLE ulcers and osteomyelitis S/p QUANTITATIVE MANAGER to right popliteal/TPT 06/2017 Stable according to [facility] on 10/05/19, Sees Dr. Lopez - Given patient's comorbidities, frailty, nonambulatory status no additional intervention unless life threatening situation Continues to have recurrent wounds of right lower extremity but typically heal with standard wound care Wound care consulted R foot XR to rule out acute worsening given complaint of discomfort Continue clopidogrel Afib/HTN/HLD/Sick Sinus Syndrome Has medtronic dual chamber pacemaker Continue atenolol, eliquis, plavix and atorvastatin Chronically elevated Troponin Trop 0.137 (previously as high as 0.27) EK ventricular paced rhythm, Qtc 458 Hypothyroidism TSH 0.192 (may not be accurate given acute illness) Continue home Synthroid Repeat TSH outpt Parkinson's Disease Not on any medications Has been wheelchair bound x 5 years Hx of senile dementia FEN/GI: HH/Minched and mosit; Speech and Take Off Worker consulted for necessary adjustments; hypokalemia 3.4 - given KCL 40meq x1 DVT prop: Eliquis Code: DNR/DNI Dispo: telemetry (2) A-fib: (3) Asymptomatic bacteriuria: (4) Peripheral arterial disease: (5) Elevated troponin: (6) HTN (hypertension): (7) Hyperlipidemia: (8) Hypothyroidism: (9) Parkinson's disease: (10) CKD (chronic kidney disease), stage III: (11) Metabolic encephalopathy: (12) Osteomyelitis of great toe of right foot: Supervising Physician Co-Signing Physician Notes Resident Physician Supervision Note: I was present with PGY3 Dr. Estrella Song during the history and exam. I discussed the case with the resident and agree with the findings and plan as documented in the note. Any exceptions or clarifications are listed here: x-rays right foot ultimately showed signs of right great toe distal tuft osteomyelitis. CT abd/pelvis without obvious malignancy. Fecal impaction seen. Numerous family members present during bedside rounds. Questions answered. Family reports at least 5 pounds of weight loss over last 3-4 weeks. Has been wheelchair depend ent/bed-bound for 5 years. Pt confused during visit. Was attempting to open a [email or web address] - fell asleep while doing so. Very hard of hearing. Denied pain in any location. exam: gen - confused, sleepy; nontoxic; PD facies; bradykinesias mouth - MM dry heart - RRR, s1 s2 lungs - decreased BS bases, no distress abd - mildly distended, BS+, NT ext - right great toe with onychomycosis of toenail; healed ulcer distal tip of toe; no first MTP joint swelling or pain; cap refill about 2-3 sec vasc - pulses both feet <1+ neuro - increased tone x 4 exts; bradykinesias total calcium 11.1 Cr 1.2 A/P: 1. hypercalcemia - improving s/p fluids. s/p zometa 11/07. intact PTH is not elevated excluding hyperparathyroidism. In light of advanced age, weight loss - malignancy is highest concern. Agree w/ PTH-related peptide; send SPEP, UPEP. If calcium is refractory -- consider trial of calcitonin. Could also consider lasix. Does have first toe osteomyelitis but doubt this is contributing to hypercalcemia. Dehydration will make hypercalcemia worse but doubt it made total calcium rise to nearly 13. Check CT abd/pelvis - r/o obvious intra-abdominal malignancy. 2. metabolic encephalopathy - #1 above, fecal impaction, ?ongoing UTI - all can contribute. Treat all issues; supportive care. 3. right great toe osteomyelitis - poor surgical candidate; start ertapenem (will also cover recent UTI) with daptomycin. ID consult. Has seen Dr Lopez for known PAD of legs; poor candidate for further intervention. 4. fecal impaction - enemas then bowel regimen. 5. PD - advanced. 6. dementia - likely 2nd to #5. 7. EMERY - multifactorial - slowly improving; BMP am. 8. CKD stage 3-4 - at baseline. family extensively updated at bedside Documented By: Nicolas Dowell MD Subjective History limited due to pt being demented. Awake this AM and taking pills with apple sauce from nurse. Reports R knee and R great toe pain. Per family still appears fatigued and less alert than baseline but appears to be showing some improvement. Denies any headache, abdominal pain, chest pain this AM. Per nursing one episode of incontinence ON and a smear of BM Review of Systems Review of Systems: Limited due to patient mental status Physical Exam Physical Exam: Exam general: In NAD, awake and taking medications when examined, responsive/verbal Neuro: Alert to person only, able to follow commands Pulm: CTAB equal but diminished breath sounds bilaterally CV: RRR, no m/r/g Abdomen:+BS, no TTP in all quadrants, non-distended LE: diminished DP pulses, R great toe well healing ulcer, R knee mildly tender to palpation without significant edema, no LE edema, no calf TTP Results & Data Vital Signs (Past 12 Hours) Vital Signs Temp Pulse Resp BP Pulse Ox 11/08/19 07:07 36.3 C L 64 16 104/69 96 11/08/19 03:55 36.6 C 63 20 104/58 L 96 11/08/19 00:02 36.3 C L 70 17 122/62 100 Laboratory Results Abnormal lab results 11/07/19 11/07/19 11/07/19 Range/Units 13:30 13:30 14:00 WBC (4.8-10.8) K/uL RBC (4.2-5.4) M/uL MCHC (32-36) g/dL RDW Std Deviation (36.4-46.3) fL RDW Coeff of Stephani (11.5-14.5) % Immature Gran # (Auto) (0.00-0.02) K/uL Neut # (Auto) (1.4-6.5) K/uL Shelby # (Auto) (0.11-0.59) K/uL PT 13.4 H (9.0-12.0) Seconds INR 1.3 H (0.9-1.1) Sodium 146 H (136-145) mmol/L Potassium (3.5-5.1) mmol/L Chloride (98-107) mmol/L Carbon Dioxide 35 H (21-32) mmol/L Anion Gap (3-11) BUN 72 H (7-18) mg/dl Creatinine 1.54 H (0.6-1.2) mg/dl BUN/Creatinine Ratio 46.6 H (10-20) Glucose 113 H (70-99) mg/dl Calcium 12.8 H* (8.5-10.1) mg/dl Ionized Calcium (1.12-1.32) mmol/L AST (15-37) U/L Alkaline Phosphatase 138 H (45-117) U/L Troponin I 0.137 H* (0-0.045) ng/ml Albumin 3.1 L (3.4-5.0) gm/dl TSH (0.300-4.500) uIu/ml PTH Intact (18.4-80.1) pg/ml Ur Leukocyte Esterase Trace H (Negative) U Epithel Cells (Auto) 10-20 H (0-5) /lpf 11/07/19 11/07/19 11/07/19 Range/Units 14:23 18:10 18:10 WBC (4.8-10.8) K/uL RBC (4.2-5.4) M/uL MCHC (32-36) g/dL RDW Std Deviation (36.4-46.3) fL RDW Coeff of Stephani (11.5-14.5) % Immature Gran # (Auto) (0.00-0.02) K/uL Neut # (Auto) (1.4-6.5) K/uL Shelby # (Auto) (0.11-0.59) K/uL PT (9.0-12.0) Seconds INR (0.9-1.1) Sodium (136-145) mmol/L Potassium (3.5-5.1) mmol/L Chloride (98-107) mmol/L Carbon Dioxide (21-32) mmol/L Anion Gap (3-11) BUN (7-18) mg/dl Creatinine (0.6-1.2) mg/dl BUN/Creatinine Ratio (10-20) Glucose (70-99) mg/dl Calcium (8.5-10.1) mg/dl Ionized Calcium 1.49 H (1.12-1.32) mmol/L AST 41 H (15-37) U/L Alkaline Phosphatase (45-117) U/L Troponin I (0-0.045) ng/ml Albumin (3.4-5.0) gm/dl TSH (0.300-4.500) uIu/ml PTH Intact 12.4 L (18.4-80.1) pg/ml Ur Leukocyte Esterase (Negative) U Epithel Cells (Auto) (0-5) /lpf 11/08/19 11/08/19 11/08/19 Range/Units 05:34 05:34 09:22 WBC 10.97 H (4.8-10.8) K/uL RBC 4.17 L (4.2-5.4) M/uL MCHC 31.7 L (32-36) g/dL RDW Std Deviation 53.2 H (36.4-46.3) fL RDW Coeff of Stephani 15.8 H (11.5-14.5) % Immature Gran # (Auto) 0.05 H (0.00-0.02) K/uL Neut # (Auto) 7.89 H (1.4-6.5) K/uL Shelby # (Auto) 0.83 H (0.11-0.59) K/uL PT (9.0-12.0) Seconds INR (0.9-1.1) Sodium (136-145) mmol/L Potassium 3.4 L (3.5-5.1) mmol/L Chloride 109 H (98-107) mmol/L Carbon Dioxide 35 H (21-32) mmol/L Anion Gap 1.0 L (3-11) BUN 63 H (7-18) mg/dl Creatinine 1.29 H (0.6-1.2) mg/dl BUN/Creatinine Ratio 49.0 H (10-20) Glucose (70-99) mg/dl Calcium 11.1 H (8.5-10.1) mg/dl Ionized Calcium (1.12-1.32) mmol/L AST (15-37) U/L Alkaline Phosphatase (45-117) U/L Troponin I (0-0.045) ng/ml Albumin (3.4-5.0) gm/dl TSH 0.192 L (0.300-4.500) uIu/ml PTH Intact (18.4-80.1) pg/ml Ur Leukocyte Esterase (Negative) U Epithel Cells (Auto) (0-5) /lpf Diagnostic Findings CT SCAN OF THE CHEST WITHOUT IV CONTRAST CLINICAL HISTORY: Hypercalcemia. COMPARISON STUDY: Chest x-ray dated 11/07/2019. TECHNIQUE: CT scan of the thorax was performed from the thoracic inlet to the upper abdomen. Images are reviewed in the axial, sagittal, and coronal planes. IV contrast was not administered for this examination as per the referring clinician. A dose lowering technique was utilized adhering to the principles of ALARA. The examination is degraded by motion artifact, as well as by streak artifact from the arms which could not be elevated above the chest. CT DOSE: 199.34 mGy.cm FINDINGS: Thyroid: The thyroid gland is atrophic and heterogeneous and attenuation. Thoracic aorta: There is atherosclerotic calcification of the thoracic aorta, which is normal in caliber and demonstrates standard 3-vessel arch anatomy. A therosclerotic calcification is also noted in the carotid bulbs. Heart: A 2-lead cardiac pacemaker is noted in the left chest wall. The heart is enlarged and without pericardial effusion. The coronary arteries and mitral annulus are densely calcified. Lungs and pleural spaces: Evaluation of the lung parenchyma is compromised by motion artifact. There is no airspace consolidation typical for pneumonia. Trace pleural effusions are noted. Scarring/atelectasis is seen at the lung bases. There are numerous calcified granulomas. Mediastinum: There is no mediastinal lymphadenopathy. Calcified nodes are noted. Naz: Not well assessed without IV contrast. Axillae: There is no axillary lymphadenopathy. Upper abdomen: There is a large hiatal hernia. Numerous calcified granulomas are identified in the liver and spleen. Skeletal structures: The skeletal structures are osteopenic. Degenerative change and hyperkyphosis are noted throughout the thoracic spine. Advanced arthritic changes seen in the shoulders. No lytic or blastic bony lesions are seen. IMPRESSION: 1. Streak and motion compromised examination. 2. Cardiomegaly and trace pleural effusions. 3. There is no airspace consolidation typical for pneumonia. 4. Large hiatal hernia. 5. Additional findings as above. CT head/brain wo con CLINICAL HISTORY: Acute change in mental status UNRESPONSIVE PATIENT COMPARISON STUDY: 09/20/2016 TECHNIQUE: Axial CT of the brain is performed from the vertex to the skull base. IV contrast was not administered for this examination. A dose lowering technique was utilized adhering to the principles of ALARA. CT DOSE: 537.48 mGy.cm FINDINGS: No intra or extra-axial mass lesions are visualized. There is no CT evidence of acute cortical infarction. There is no evidence of midline shift. There is no acute hemorrhage. No calvarial fractures are visualized. There are moderate white matter hypodensities likely on a small vessel basis. There is basal ganglial mineralization. There are diffuse atrophic changes. There is mild ventricular dilatation, finding which is felt to be secondary to volume loss. There is no evidence of acute sinusitis IMPRESSION: No acute intracranial findings XR chest 1V portable HISTORY: 89 years-old Female ams . Acutely altered mental status COMPARISON: Chest radiograph 06/25/2018 TECHNIQUE: Portable AP view of the chest FINDINGS: Cardiac silhouette is enlarged, unchanged. Calcified plaque of the thoracic aortic arch. Unchanged left subclavian pacer. Large hiatal hernia. No pneumothorax. Blunting of the costophrenic angles suggests trace effusions. Minimal left basilar atelectasis. Calcific granuloma of the right upper lung. Longitudinally oriented lucency projecting over the left midlung suggests skin fold. Degenerative changes of the shoulders and spine. IMPRESSION: 1. Cardiomegaly without overt pulmonary edema. 2. Trace pleural effusions with mild left basilar atelectasis. 3. Large hiatal hernia. Resident Activity Tracking Resident Involvement: Resident Care Provided Care Provided: Adult [facility]
[2019-11-08 10:09] LABS: Phosphorus 2.6 mg/dl (2.5-4.9); Thyroid Stimulating Hormone 0.192 uIu/ml (0.300-4.500)
--- NOTE | 2019-11-08 14:32 | XRay Report ---
XR foot RT 2V CLINICAL HISTORY: R great toe pain, hx of osteomyelitis, PVD, ulcers COMPARISON: Right first toe radiographs August 11, 2017. FINDINGS: Tarsometatarsal joints are intact. There is osteopenia. Bony erosion of the distal tuft of the distal phalanx of the right first toe is new since exam of August 11, 2017. No additional sit es of osteomyelitis are identified on this examination. There is moderate plantar calcaneal spurring. Moderate vascular calcification is present. Apparent deformities of the several proximal phalanges i s likely positional. IMPRESSION: Bony erosion of the distal tuft of the distal phalanx of the right first toe which is new since radiographs of August 11, 2017. This represents osteomyelitis. Although age indeterminate, the appearance on lateral projection favors acute. ACT 112: Negative or not required by law. Electronically signed by: Sebastián Hernandez M.D. 11/08/2019 2:31 PM
--- NOTE | 2019-11-08 16:07 | CT Scan Report ---
CT OF THE ABDOMEN AND PELVIS WITHOUT CONTRAST CLINICAL HISTORY: rule out malignancy, elevated Ca COMPARISON STUDY: Renal ultrasound June 22, 2019. TECHNIQUE: Axial images of the abdomen and pelvis were obtained without IV contrast. Images were revi ewed in the axial, sagittal, and coronal planes. Automated exposure control was utilized for the carina dy. A dose lowering technique was utilized adhering to the principles of ALARA. FINDINGS: Imaged portions of the lower chest demonstrate moderate cardiomegaly. Pacer leads are parti ally imaged. There are trace bilateral pleural effusions. A large hiatal hernia is noted. Evaluation of the abdomen and pelvis is suboptimal on this unenhanced examination. There are calcified granuloma s within the liver and spleen. There is no biliary or pancreatic ductal dilatation. No abdominal or p elvic lymphadenopathy is present. No suspicious hepatic lesions are identified on this unenhanced exa mination. There is no hydronephrosis. Unenhanced images of the adrenal glands are unremarkable. There is pancreatic glandular atrophy. No pancreatic lesion is identified on this unenhanced exam. Large a mount of stool within the rectum is noted. Left groin hernia contains small bowel loops without resul tant bowel obstruction. There is a moderate amount of stool within the colon. Severe right hip osteop hytosis with flattening of the right femoral head is noted. Remodeling of the acetabulum is also note d. Bassett balloon within the bladder is noted. Sensitivity for detection of mucosal lesions is diminis hed given CT technique but none are identified. IMPRESSION: 1. No evidence for malignancy within the abdomen or pelvis although sensitivity diminished on this un enhanced exam. 2. Large amount of stool within the rectum. 3. Small bowel containing left groin hernia without bowel obstruction. ACT 112: Negative or not required by law. Electronically signed by: Sebastián Hernandez M.D. 11/08/2019 4:06 PM
[2019-11-08] MEDS ORDERED: bisacodyL 10 MG SUPP PR STA (17:24)
[2019-11-08] MEDS ORDERED: DAPTOmycin 275 MG in SYRINGE 0 ML IV SCH (18:00)
[2019-11-08] MEDS: POLYETHYLENE (MIRALAX) 17 GM PACK PO SCH (18:15)
[2019-11-08] MEDS: ACETAMINOPHEN 325 MG TAB PO PRN (18:36)
[2019-11-08] MEDS: ERTAPENEM SODIUM 500 MG in SODIUM CHLORIDE 0.9% 50 ML IV SCH (18:58)
[2019-11-08] MEDS: ATORVASTATIN 20 MG TAB PO SCH (20:21)
[2019-11-08] MEDS: DOCUSATE SODIUM 100 MG CAP PO SCH (20:25)
[2019-11-09 05:29] LABS: Basophils # (auto) 0.02 K/uL (0-0.2); Basophils % (auto) 0.2 %; Eosinophils # (auto) 0.21 K/uL (0-0.5); Eosinophils % (auto) 2.2 %; Hematocrit (blood only) 37.4 % (37-47); Hemoglobin 12.2 g/dL (12.0-16.0); Immature Granulocytes # (auto) 0.03 K/uL (0.00-0.02); Immature Granulocytes % (auto) 0.3 %; Lymphocytes # (auto) 1.68 K/uL (1.2-3.4); Lymphocytes % (auto) 17.8 %; Mean Corpuscular Hemoglobin 30.1 pg (25-34); Mean Corpuscular Hgb Conc 32.6 g/dL (32-36); Mean Corpuscular Volume 92.3 fL (80-100); Monocytes # (auto) 0.79 K/uL (0.11-0.59); Monocytes % (auto) 8.4 %; Neutrophils % (auto) 71.1 %; Platelet Count 203 K/uL (130-400); RDW Coefficient of Variation 15.7 % (11.5-14.5); RDW Standard Deviation 52.1 fL (36.4-46.3); Red Blood Count 4.05 M/uL (4.2-5.4); White Blood Count 9.43 K/uL (4.8-10.8)
--- NOTE | 2019-11-09 05:40 | Billing Data ---
Date of Service November 08, 2019 Coding Level of Care Code 11983 Subseq Hosp Care Lvl 3
[2019-11-09 05:48] LABS: Albumin Level 2.6 gm/dl (3.4-5.0); BUN Creatinine Ratio 38.9 (10-20); Calcium 9.7 mg/dl (8.5-10.1); Creatinine Clr Calc Pharmacy 22.3 ml/min; Est GFR (Non-African American) 38.9; Potassium 3.7 mmol/L (3.5-5.1)
[2019-11-09 05:55] LABS: Albumin Globulin Ratio 0.8 (0.9-2); Bilirubin,Total 0.5 mg/dl (0.2-1); Globulin 3.3 gm/dl (2.5-4.0); T4 Free Thyroxine 1.16 ng/dl (0.8-1.6); Total Protein 5.9 gm/dl (6.4-8.2)
[2019-11-09] MEDS: LEVOTHYROXINE SODIUM 88 MCG TABLET PO SCH (06:28)
[2019-11-09] MEDS: *RESTASIS*ORDER AWAITING ACTION SCH ×3 (08:15→23:56)
[2019-11-09] MEDS: POLYETHYLENE (MIRALAX) 17 GM PACK PO SCH (08:24)
[2019-11-09] MEDS: SODIUM CHLORIDE 0.45 % 1,000 ML IV SCH (08:24)
[2019-11-09] MEDS: CLOPIDOGREL BISULFATE 75 MG TAB PO SCH (08:26)
[2019-11-09] MEDS: CHOLECALCIFEROL 1,000 UNITS TAB PO SCH (08:26)
[2019-11-09] MEDS: FERROUS SULFATE 325 MG TAB PO SCH ×2 (08:26→21:19)
[2019-11-09] MEDS: APIXABAN 2.5 MG TAB PO SCH ×2 (08:26→21:19)
[2019-11-09] MEDS: LACTOBACILLUS ACIDOPHILUS (FLORANEX) TAB PO SCH ×4 (08:26→21:21)
[2019-11-09] MEDS: LORATADINE 10 MG TAB PO SCH (08:26)
[2019-11-09] MEDS: ATENOLOL 50 MG TABLET PO SCH ×2 (08:26→21:23)
[2019-11-09] MEDS: OMEGA-3 (PURIFIED FISH OIL) 1 GM CAP PO SCH (08:26)
[2019-11-09] MEDS: *AZELASTINE*ORDER AWAITING ACTION SCH ×3 (08:27→23:55)
[2019-11-09] MEDS: DOCUSATE SODIUM 100 MG CAP PO SCH ×2 (08:27→21:21)
[2019-11-09] MEDS: MULTIVITAMIN TAB PO SCH (08:27)
--- NOTE | 2019-11-09 09:25 | Hospitalist Progress Note ---
Date of Service November 09, 2019 Assessment & Plan (1) Hypercalcemia: 89yoF halfway facility ([facility]) resident with hx of Parkinson's disease, dementia, hypertension, stage 3 chronic kidney disease, paroxysmal atrial fibrillation and sick sinus syndrome status post Medtronic d ual-chamber pacemaker, and peripheral artery disease previously treated with HVAC RESIDENTIAL SERVICE TECHNICIAN of right popliteal/tibioperoneal trunk in the setting right great toe ulceration/osteomyelitis presents with concern for elevated calcium and lethargy from chcf. Also found to have recurrent acute osteomyelitis of distal R great toe. Lethargy/encephalopathy Likely in the setting of dehydration vs. UTI vs. osteomyelitis vs. fecal impaction Improving Hypercalcemia Likely secondary to potential malignancy given age and weight loss vs. dehydration (unlikely to cause Ca of 13) Pt was on calcium and Vit D supplement at [facility] but no thiazide diuretics or any other medications that could explain Received zoledronic acid infusion on 11/07/19, may require repeat treatment in 2-3 weeks ago if unresolved Corrected Ca 13 on admit, now 10.3, initial ICa 1.49 PTH low at 12.4, Vit D 51.6, Phos 2.6 PTHrP, SPEP and UPEP pending CT chest: cardiomegaly, trace pleural effision, large hiatal hernia CT abdomen/pelvis w/ot contrast: large stool burden in rectum, small bowel containing L groin hernia without bowel obstruction Continue 1/2 NS at 80cc/hr Consider calcitonin if continues to be elevated despite hydration or Lasix if renal function improves EMERY on CKD/Dehydration - Improving BUN/Cr on presentation 72/1.54 (baseline Cr 1.1, GFR 30-40) Improved to 48/1.23 Continue 1/2NS at 80cc/hr Asymptomatic Bacteriuria UCx 11/02: ESBL E. Coli >100k colonies Received Ertapenem x 4 days UA on admission: trace leuk est, 10-20 epi only On ertapenem and daptomycin for osteomyelitis PAD with recurrent RLE ulcers and acute osteomyelitis S/p HVAC RESIDENTIAL SERVICE TECHNICIAN to right popliteal/tibioperoneal trunk 06/2017 Stable according to [facility] on 10/05/19, Sees Dr. Lopez - Given patient's comorbidities, frailty, nonambulatory status no additional intervention unless life threatening situation Continues to have recurrent wounds of right lower extremity but typically heal with standard wound care Wound care consulted R foot XR: bony erosion distal tuft distal phalanx R 1st toe new since 08/11/17 imaging, favors acute Continue clopidogrel Started on daptomycin and ertapenem ID consulted: Dr. Bailon is unavailable until 10/19 - will attempt to reach via phone for potential recommendation given pt evaluated by ID previously Afib/HTN/HLD/Sick Sinus Syndrome Has medtronic dual chamber pacemaker Continue atenolol, eliquis, and atorvastatin Chronically elevated Troponin Trop 0.137 (previously as high as 0.27) EK ventricular paced rhythm, Qtc 458 Hypothyroidism TSH 0.192 (may not be accurate given acute illness), Free T4 1.16 Continue home Synthroid Repeat TSH outpt Parkinson's Disease Not on any medications Has been wheelchair bound x 5 years Hx of senile dementia vs. related to Parkinson's FEN/GI: HH/Minched and mosit; Speech and Grape Crusher consulted for necessary adjustments DVT prop: Eliquis Code: DNR/DNI Dispo: telemetry (2) A-fib: (3) Asymptomatic bacteriuria: (4) Peripheral arterial disease: (5) Elevated troponin: (6) HTN (hypertension): (7) Hyperlipidemia: (8) Hypothyroidism: (9) Parkinson's disease: (10) CKD (chronic kidney disease), stage III: Supervising Physician Co-Signing Physician Notes I personally examined the patient and verified all jacome points of history and exam, discussed case, and agree with decision making with Dr Song. Seems to be doing better. Baseline mentation precludes much of any meaningful H PI or review of systems, but she has no complaints. Daughter present and updated extensively to the best my ability. Vitals noted, in general she is awake and alert seems to be conversive but not entirely oriented. No distress. HEENT normocephalic atraumatic mucous membranes are moist. Breathing unlabored no accessory muscle use good effort. Right foot with eschar on great toe, no tracking erythema, does not appear to be very tender. Neuro shows no focal deficits. Skin shows no rashes, no pallor, no icterus. Hypercalcemiauncertain etiology, but given the lack of overt malignancy, well SPEP and UPEP are pending, it is quite possible it is all due to dehydration. She is improved nicely. Definitely this will need to be followed closely as an outpatient (something on the order of a basic metabolic panel once a week, as well as follow-up on SPEP and UPEP). Dehydrationfrom poor oral intake, probably compounded by constipation. Improved, stop IV fluids. Constipationbowel regimen, supportive care. Protein/calorie malnutritionprobably moderate to severe her albumin being moderately low, her weight loss tending more towards severe. Likely all due to poor oral intake. Again as above noted malignancy is being entertained, but fortunately no clear findings are found at this time. Continue close vigilance. Great toe osteomyelitis. Currently on ertapenem and daptomycin, this is likely not to improve easily given her peripheral vascular disease, will likely need to have some degree of a long-term or even chronic suppressive regimen. DVT prophylaxisapixaban. Otherwise as above Subjective History limited due to pt being demented. Awake this AM however falling asleep at times during visit. Reports toe pain improved. Per nurse who cared for her initially as well mentation improving Denies any abdominal pain, chest pain this AM. Had multiple soft BMs per nursing s/p bowel regimen for large rectal stool burden. Review of Systems Review of Systems: Limited due to patient mental status Physical Exam Physical Exam: General: In NAD, awake however dozing off at times, more responsive/verbal Neuro: Alert to person, place and month (says its 2019 already), able to follow commands; bradykinesia Pulm: CTAB equal but diminished breath sounds bilaterally CV: RRR, no m/r/g Abdomen:+BS, no TTP in all quadrants, non-distended LE: diminished DP pulses <1+, R great toe distal well healing ulcer, onychomycosis, R knee mildly tender to palpation without significant edema, no LE edema, no calf TTP Results & Data Vital Signs (Past 12 Hours) Vital Signs Temp Pulse Resp BP Pulse Ox 11/09/19 07:44 36.7 C 62 20 118/70 97 11/09/19 03:41 36.3 C L 64 17 106/54 L 99 11/08/19 23:48 36.3 C L 64 17 104/70 99 Resident Activity Tracking Resident Involvement: Resident Care Provided Care Provided: Adult [facility]
--- NOTE | 2019-11-09 16:14 | Billing Data ---
Date of Service November 09, 2019 Coding Level of Care Code 41351 Subseq Hosp Care Lvl 3
[2019-11-09] MEDS: ERTAPENEM SODIUM 500 MG in SODIUM CHLORIDE 0.9% 50 ML IV SCH (17:48)
[2019-11-09] MEDS: ATORVASTATIN 20 MG TAB PO SCH (21:19)
[2019-11-10] MEDS: LEVOTHYROXINE SODIUM 88 MCG TABLET PO SCH (05:58)
[2019-11-10 08:28] LABS: Basophils # (auto) 0.01 K/uL (0-0.2); Basophils % (auto) 0.1 %; Eosinophils # (auto) 0.14 K/uL (0-0.5); Eosinophils % (auto) 1.6 %; Hematocrit (blood only) 35.2 % (37-47); Hemoglobin 11.7 g/dL (12.0-16.0); Immature Granulocytes # (auto) 0.04 K/uL (0.00-0.02); Immature Granulocytes % (auto) 0.5 %; Lymphocytes # (auto) 1.43 K/uL (1.2-3.4); Lymphocytes % (auto) 16.3 %; Mean Corpuscular Hgb Conc 33.2 g/dL (32-36); Mean Corpuscular Volume 90.3 fL (80-100); Mean Platelet Volume 10.8 fL (7.4-10.4); Monocytes # (auto) 0.86 K/uL (0.11-0.59); Monocytes % (auto) 9.8 %; Neutrophils # (auto) 6.31 K/uL (1.4-6.5); Neutrophils % (auto) 71.7 %; Platelet Count 203 K/uL (130-400); RDW Coefficient of Variation 15.7 % (11.5-14.5); RDW Standard Deviation 50.6 fL (36.4-46.3); White Blood Count 8.79 K/uL (4.8-10.8)
[2019-11-10 08:53] LABS: Albumin Level 2.5 gm/dl (3.4-5.0); BUN Creatinine Ratio 33.6 (10-20); Calcium 9.1 mg/dl (8.5-10.1); Creatinine Clr Calc Pharmacy 25.6 ml/min; Est GFR (African American) 53.3; Potassium 3.6 mmol/L (3.5-5.1)
[2019-11-10 08:56] LABS: Albumin Globulin Ratio 0.8 (0.9-2); Bilirubin,Total 0.5 mg/dl (0.2-1); Globulin 3.2 gm/dl (2.5-4.0); Total Protein 5.7 gm/dl (6.4-8.2)
[2019-11-10] MEDS: *AZELASTINE*ORDER AWAITING ACTION SCH (09:10)
[2019-11-10] MEDS: *RESTASIS*ORDER AWAITING ACTION SCH (09:10)
[2019-11-10] MEDS: LACTOBACILLUS ACIDOPHILUS (FLORANEX) TAB PO SCH ×2 (09:10→12:34)
[2019-11-10] MEDS: CLOPIDOGREL BISULFATE 75 MG TAB PO SCH (09:15)
[2019-11-10] MEDS: DOCUSATE SODIUM 100 MG CAP PO SCH (09:15)
[2019-11-10] MEDS: CHOLECALCIFEROL 1,000 UNITS TAB PO SCH (09:16)
[2019-11-10] MEDS: MULTIVITAMIN TAB PO SCH (09:16)
[2019-11-10] MEDS: ATENOLOL 50 MG TABLET PO SCH (09:16)
[2019-11-10] MEDS: FERROUS SULFATE 325 MG TAB PO SCH (09:17)
[2019-11-10] MEDS: POLYETHYLENE (MIRALAX) 17 GM PACK PO SCH (09:17)
[2019-11-10] MEDS: APIXABAN 2.5 MG TAB PO SCH (09:17)
[2019-11-10] MEDS: OMEGA-3 (PURIFIED FISH OIL) 1 GM CAP PO SCH (09:18)
[2019-11-10] MEDS: LORATADINE 10 MG TAB PO SCH (09:18)
--- NOTE | 2019-11-10 10:06 | Discharge Summary ---
Date of Service November 10, 2019 Admission HPI Per Admitting Provider This is an 88-year-old female with past medical history of Parkinson's, senile dementia, hypertension, DVT that presents today with hypercalcemia. Patient cannot provide any meaningful history but is accompanied by 3 daughters who are able to answer questions. They tell me the patient has been having worsening lethargy over the past 10 days. They note that she has trouble staying awake. They also note very di minished p.o. intake including a lack of fluids. They think this is been progressive in the multiple times the visit the patient in the facility. They deny that the patient had complained of anything such as back pain, dysuria, chest pain, or fevers. They did note on one visit the patient was leaning forward as if in pain but patient did not express anything and did not localize any sort of symptoms. The this was similar to the patient's previous symptoms back in the over the summer and the patient has been admitted here with acute UTI a gram-negative septicemia. Patient had lab work in the facility which showed an extremely high calcium. Urinalysis was not sent over with the patient but the urine culture grew ESBL E. coli with multiple resistances. The patient has been treated for the past 4 days with ertapenem without improvement in the patient's symptoms. Daughters tell me the patient was ultimately sent over the hospital secondary to her hypercalcemia. Patient herself seems to be somewhat lethargic although she does wake up and answer some questions. She is concerned about having her nails cut but expresses no significant complaints. Vital signs are stable. Principal Diagnosis Hypercalcemia EMERY R 1st toe osteomyelitis Discharge Exam General: In NAD, resting when evaluated this AM Neuro: Alert to person, place and month only, bradykinesia Pulm: CTAB equal breath sounds bilaterally CV: RRR, no m/r/g Abdomen:+BS, no TTP in all quadrants, non-distended LE: diminished DP pulses <1+, R great toe distal well healing ulcer, onychomycosis, no LE edema, no calf TTP Discharge Data Allergies Allergy/AdvReac Type Severity Reaction Status Date / Time amoxicillin Allergy Mild RASH Verified 11/07/19 13:03 Consultations 11/07/19 15:02 ED Decision to Admit Stat 11/07/19 17:34 Consult Case Management - Discharge Planning Routine 11/08/19 17:28 Consult Infectious Diseases Routine Ordered Studies 11/07/19 12:48 CT head/brain wo con Stat 11/07/19 17:34 CT chest wo con Stat 11/08/19 13:32 CT abd pelvis wo con Routine Hospital Course (1) Hypercalcemia: 89yoF [facility] facility ([facility]) resident with hx of Parkinson's disease, dementia, hypertension, stage 3 chronic kidney disease, paroxysmal atrial fibrillation and sick sinus syndrome status post Medtronic dual-chamber pacemaker, and peripheral artery disease previously treated with AUXILIARY EQUIPMENT OPERATOR of right popliteal/tibioperoneal trunk in the setting right great toe ulceration/osteomyelitis presents with concern for elevated calcium and lethargy from retirement. Also found to have recurrent acute osteomyelitis of distal R great toe. Lethargy/encephalopathy - improved Likely in the setting of dehydration vs. UTI vs. osteomyelitis vs. fecal impaction Hypercalcemia - resolved Likely secondary to potential malignancy given age and weight loss vs. dehydration (unlikely to cause Ca of 13) Pt was on calcium and Vit D supplement at [facility] but no thiazide diuretics or any other medications that could explain - hold calcium supplement Corrected Ca 13 on admit, initial ICa 1.49, Ca today 9.1 s/p IVF hydration PTH low at 12.4, Vit D 51.6, Phos 2.6 CT chest: cardiomegaly, trace pleural effision, large hiatal hernia CT abdomen/pelvis w/ot contrast: large stool burden in rectum, small bowel containing L groin hernia without bowel obstruction PTHrP, SPEP and UPEP pending Received zoledronic acid infusion on 11/07/19, may require repeat treatment in 2-3 weeks ago if has recurrent hypercalcemia Check BMP weekly, encourage hydration 60oz water daily EMERY on CKD/Dehydration - Improved BUN/Cr on presentation 72/1.54 (baseline Cr 1.1, GFR 30-40) Improved to 36/1 s/p IVFs Asymptomatic Bacteriuria UCx 11/02: ESBL E. Coli >100k colonies Received Ertapenem x 4 days UA on admission: trace leuk est, 10-20 epi only Received ertapenem and daptomycin for osteomyelitis during admission PAD with recurrent RLE ulcers and acute osteomyelitis S/p AUXILIARY EQUIPMENT OPERATOR to right popliteal/tibioperoneal trunk 06/2017 Stable according to [facility] on 10/05/19, Sees Dr. Lopez - Given patient's comorbidities, frailty, nonambulatory status no additional intervention unless life threatening situation Continues to have recurrent wounds of right lower extremity but typically heal with standard wound care R foot XR: bony erosion distal tuft distal phalanx R 1st toe new since 08/11/17 imaging, favors acute Continue clopidogrel Received: daptomycin and ertapenem Wound care at [facility] Discharged on doxycycline 100mg BID x 21 days ID consulted: Dr. Bailon is unavailable until 10/19 Follow up in 1-2 weeks for further management Afib/HTN/HLD/Sick Sinus Syndrome Has medtronic dual chamber pacemaker Continue atenolol, eliquis, and atorvastatin Chronically elevated Troponin Trop 0.137 (previously as high as 0.27) EK ventricular paced rhythm, Qtc 458 Hypothyroidism TSH 0.192 (may not be accurate given acute illness), Free T4 1.16 Continue home Synthroid Repeat TSH outpt in 6 weeks Parkinson's Disease Not on any medications Has been wheelchair bound x 5 years Hx of senile dementia vs. related to Parkinson's Speech/Nutriotion Recommendations: moist/slippery pureed foods, small frequency meals, nutritional supplement (2) A-fib: (3) Asymptomatic bacteriuria: (4) Peripheral arterial disease: (5) Elevated troponin: (6) HTN (hypertension): (7) Hyperlipidemia: (8) Hypothyroidism: (9) Parkinson's disease: (10) CKD (chronic kidney disease), stage III: Total Time Total Time Spent Total Time Spent (In Minutes): <30 mins Discharge Plan Discharge Items Patient Disposition: Transfer Snf Fac Reason For Visit: HYPERCALCEMIA,CHANGE OF MS Discharge Diagnosis: Hypercalcemia EMERY Osteomyelitis Activity: Resume your previous activity Non-emergency contact: Primary Care Provider Call non-emergency contact if: you have any medication questions, your symptoms worsen and you have a fever Follow-up/Referrals: [facility] [Primary Care Provider] - Diet: Heart Healthy Diet Comment: Moist/slippery pureed, small frequency meals, nutritional supplements Addtl Attending Provider Instructions: 89yoF [facility] facility ([facility]) resident with hx of Parkinson's disease, dementia, hypertension, stage 3 chronic kidney disease, paroxysmal atrial fibrillation and sick sinus syndrome status post Medtronic dual-chamber pacemaker, and peripheral artery disease previously treated with AUXILIARY EQUIPMENT OPERATOR of right popliteal/tibioperoneal trunk in the setting right great toe ulceration/osteomyelitis presents with concern for elevated calcium and lethargy from retirement. Also found to have recurrent acute osteomyelitis of distal R great toe. Lethargy/encephalopathy - improved Likely in the setting of dehydration vs. UTI vs. osteomyelitis vs. fecal impaction Hypercalcemia - resolved Likely secondary to potential malignancy given age and weight loss vs. dehydration (unlikely to cause Ca of 13) Pt was on calcium and Vit D supplement at [facility] but no thiazide diuretics or any other medications that could explain Corrected Ca 13 on admit, initial ICa 1.49, Ca today 9.1 s/p IVF hydration PTH low at 12.4, Vit D 51.6, Phos 2.6 CT chest: cardiomegaly, trace pleural effision, large hiatal hernia CT abdomen/pelvis w/ot contrast: large stool burden in rectum, small bowel containing L groin hernia without bowel obstruction PTHrP, SPEP and UPEP pending Received zoledronic acid infusion on 11/07/19, may require repeat treatment in 2-3 weeks ago if unresolved Check BMP weekly, encourage hydration 60oz water daily EMERY on CKD/Dehydration - Improved BUN/Cr on presentation 72/1.54 (baseline Cr 1.1, GFR 30-40) Improved to 36/1 s/p IVFs Asymptomatic Bacteriuria UCx 11/02: ESBL E. Coli >100k colonies Received Ertapenem x 4 days UA on admission: trace leuk est, 10-20 epi only Received ertapenem and daptomycin for osteomyelitis during admission PAD with recurrent RLE ulcers and acute osteomyelitis S/p AUXILIARY EQUIPMENT OPERATOR to right popliteal/tibioperoneal trunk 06/2017 Stable according to [facility] on 10/05/19, Sees Dr. Lopez - Given patient's comorbidities, frailty, nonambulatory status no additional intervention unless life threatening situation Continues to have recurrent wounds of right lower extremity but typically heal with standard wound care R foot XR: bony erosion distal tuft distal phalanx R 1st toe new since 08/11/17 imaging, favors acute Continue clopidogrel Received: daptomycin and ertapenem Discharged on doxycycline 100mg BID x 21 days ID consulted: Dr. Bailon is unavailable until 10/19 Follow up in 1-2 weeks for further management Afib/HTN/HLD/Sick Sinus Syndrome Has medtronic dual chamber pacemaker Continue atenolol, eliquis, and atorvastatin Chronically elevated Troponin Trop 0.137 (previously as high as 0.27) EK ventricular paced rhythm, Qtc 458 Hypothyroidism TSH 0.192 (may not be accurate given acute illness), Free T4 1.16 Continue home Synthroid Repeat TSH outpt in 6 weeks Parkinson's Disease Not on any medications Has been wheelchair bound x 5 years Hx of senile dementia vs. related to Parkinson's Speech/Nutriotion Recommendations: moist/slippery pureed foods, small frequency meals, nutritional supplement Pending Studies at Discharge: Yes (SPEP, UPEP, PTHrP, Vit D 1,25) Stand-Alone Forms: My [facility] Skilled Items Patient informed of condition?: Yes DNR: Yes Discharge Level of Care: Skilled Communicable Disease: No Discharge Prognosis: Improving Lines: None Urinary Catheter: No Medications and DC Order Prescriptions: New docusate sodium 100 mg Capsule 100 mg PO BID Qty: 60 RF: 0 doxycycline hyclate 100 mg capsule 100 mg PO BID 21 Days Qty: 42 RF: 0 Continued acetaminophen 325 mg capsule 650 mg PO Q6H PRN (Reason: pain/fever) RF: 0 atorvastatin 20 mg tablet 20 mg PO QPM RF: 0 clopidogrel 75 mg tablet 75 mg PO DAILY RF: 0 cyanocobalamin (vitamin B-12) 1,000 mcg/mL kit 100 mcg IM UD RF: 0 ferrous sulfate 325 mg (65 mg iron) tablet 325 mg PO BID RF: 0 omega 4-vcv-qbw-fish oil [Fish Oil] 100-160-1,000 mg capsule 1 cap PO DAILY RF: 0 loratadine [Claritin] 10 mg tablet 10 mg PO DAILY RF: 0 levothyroxine 88 mcg capsule 88 mcg PO DAILY RF: 0 multivitamin with iron-mineral Tablet 1 tab PO DAILY RF: 0 azelastine 137 mcg (0.1 %) Aerosol,[place] 1 spray INTRANASAL BID RF: 0 bisacodyl [Dulcolax (bisacodyl)] 10 mg Suppository 10 mg NE DIRECTED PRN (Reason: Constipation) RF: 0 Eliquis 2.5 mg Tablet 2.5 mg PO BID RF: 0 magnesium hydroxide [Milk of Magnesia] 400 mg/5 mL Suspension 30 ml PO DIRECTED PRN (Reason: Constipation) RF: 0 Restasis 0.05 % Dropperette 1 drp OPHTHALMIC (EYE) Q12H RF: 0 sodium chloride [Saline Nasal] 0.65 % Aerosol,[place] 2 spray INTRANASAL DAILY PRN (Reason: allergic rhinitis) RF: 0 ascorbic acid (vitamin C) [Vitamin C] 250 mg Tablet 250 mg PO BID RF: 0 cholecalciferol (vitamin D3) [Vitamin D3] 1,000 unit Tablet,Chewable 1,000 unit PO DAILY RF: 0 atenolol 50 mg Tablet 50 mg PO BID Qty: 60 RF: 0 Lactobacillus acidoph-L.bulgar [Floranex] 1 million cell Tablet 4 tab PO QIDM Qty: 0 RF: 0 Discontinued ertapenem 1 gram recon soln 1 g IV DAILY RF: 0 calcium carbonate [Oyster Shell Calcium 500] 500 mg calcium (1,250 mg) Tablet 1,250 mg PO BID Qty: 0 RF: 0 Discharge Orders: Discharge Order (Routine); Ordered 11/10/19 Ordered By: Estrella Song Admission Data Admit Date/Time: 11/07/19 16:04 Attending Provider: Abhijeet George Admit Provider: Jordy Suazo Primary Care Provider: Jorge Aggarwal Other Providers: Jorge Aggarwal ; Nicolas Dowell ; Jordy Suazo ; Sravanthi Bailon Other Interventions: Discharge Summary Assessment (RN) Last Done: 11/10/19 12:48 DC Date/Time DO NOT enter until pt leaves facility: 11/10/19 13:50 Supervising Physician Co-Signing Physician Notes I personally examined the patient and verified all jacome points of history and exam, discussed case, and agree with decision making with Dr Song. no new issues. no new problems. appears ready for return to SNF. Vitals noted, in general she is awake and alert seems to be conversive but not entirely oriented. No distress. HEENT normocephalic atraumatic mucous membranes are moist. Breathing unlabored no accessory muscle use good effort. Right foot with eschar on great toe, no tracking erythema, does not appear to be very tender. Neuro shows no focal deficits. Skin shows no rashes, no pallor, no icterus. Hypercalcemiauncertain etiology, but given the lack of overt malignancy, while SPEP and UPEP are pending, it is quite possible it is all due to dehydration. She has improved nicely. Definitely this will need to be followed closely as an outpatient (something on the order of a basic metabolic panel once a week, as well as follow-up on SPEP and UPEP). Dehydrationfrom poor oral intake, probably compounded by constipation. Improved, doing well off IV fluids. follow PO fluid intake at SNF. Constipationbowel regimen at SNF. follow BMs, titrate as needed. Protein/calorie malnutritionprobably moderate to severe her albumin being moderately low, her weight loss tending more towards severe. Likely all due to poor oral intake. Again as above noted malignancy is being entertained, but fortunately no clear findings are found at this time. Continue close vigilance as outpt. Great toe osteomyelitis. suppressive doxy at discharge - outpt wound and ID f/u DVT prophylaxisapixaban. Otherwise as above Resident Activity Tracking Resident Involvement: Resident Care Provided Care Provided: Adult Hospital Medicine
[2019-11-10] MEDS: ACETAMINOPHEN 325 MG TAB PO PRN (12:35)
[2019-11-10 12:53] LABS: Alpha 1 Globulin 0.4 g/dL (0.2-0.3); Alpha 2 Globulin 0.7 g/dL (0.5-0.9); Beta-1-Globulin 0.3 g/dL (0.4-0.6); Beta-2-Globulin 0.4 g/dL (0.2-0.5); Gamma Globulin 0.9 g/dL (0.8-1.7); Monoclonal Protein Band 1 DNR g/dL (NONE DETECTED); Monoclonal Protein Band 2 DNR g/dL (NONE DETECTED); Monoclonal Protein Band 3 DNR g/dL (NONE DETECTED); Total Protein 5.6 g/dL (6.1-8.1)
--- NOTE | 2019-11-10 18:02 | Billing Data ---
Date of Service November 10, 2019 Coding Level of Care Code D/C Day Management <30 mins
[2019-11-13 07:20] LABS: Creatinine Ur 53 mg/dL (20-275); Protein, Urine Random 16 mg/dL (5-24); Urine Abnormal Protein Band 1 DNR mg/dL (NONE DETECTED); Urine Abnormal Protein Band 2 DNR mg/dL (NONE DETECTED); Urine Abnormal Protein Band 3 DNR mg/dL (NONE DETECTED); Urine Protein/Creatinine Ratio 0.302 (0.021-0.161)
[2019-11-17 19:32] LABS: PTH Related Protein 15 pg/mL (14-27); Vitamin D 1,25 <8 pg/mL (18-72); Vitamin D3,1,25 <8 pg/mL
--- NOTE | 2019-11-20 12:38 | Coding Query ---
CODING QUERY To promote full compliance with coding requirements relating to patient care, provider participation is requested in all cases of warp picker uncertainty. Please assist us with the question(s) below: Please clarify the meaning of EMERY that begins on Progress Note 11/08/19. EMERY is not a valid abbreviation. Thank you. (x) Acute Kidney Injury ( ) Acute Kidney Insufficiency ( ) Other (Specify): Principal Diagnosis: "that condition established after study, to be chiefly responsible for occasioning the admission of the patient to the hospital for care." Co-Existing Principal Diagnosis: "when two or more diagnoses equally meet the criteria for principal diagnosis as determined by the circumstances of admission, diagnostic work up, and/or therapy provided, and the Alphabetic Index, Tabular List, or another coding guideline does not provide sequencing direction, any one of the diagnoses may be sequenced first." "When the physician has documented what appears to be a current diagnosis in the body of the record, but has not included the diagnosis in the final diagnostic statement, the physician should be asked whether the diagnosis should be added." (Source Coding [facility] 2 QTR90. p3-4) VALDEZ
--- NOTE | 2019-11-20 12:43 | Coding Query ---
PRESENT ON ADMISSION QUERY To promote full compliance with coding requirements relating to pateint care, physician participation is requested in all cases of supervisor special education uncertainty. Please assist us with the question(s) below: Please place an X within the parenthesis (x). The following diagnosis(es) listed in this patient's medical record require physician assistance to determine if they were present on admission (POA) or not. Please advise for each diagnosis whether it was present on admission, not present on admission, or if it was clinically undetermined. 1. EMERY (begining documentation on Progress Note 11/08/19. EMERY meaning is clarified on separate query) (x ) Present On Admission ( ) Not Present On Admission ( ) Clinically Undetermined 2. Acute Osteomylitis of great toe of right foot (begins with confirmation of x- ray finding on Progress Note 11/08/19) (x ) Present On Admission ( ) Not Present On Admission ( ) Clinically Undetermined Thank you Bhavna Gómez *Definition of the present on admission (POA)-Present on admission is defined as present at the time the order for inpatient admission occurs. Conditions that develop during an outpatient encounter prior to a written order for inpatient admission (including emergency department, observation, or outpatient surgery) are considered present on admission. MTDD
== END 2019-11-10 13:50 | DRG 539 ==
LOC: ED 12:21 → 2S 16:04 → SUATTDRO 16:04 → 2S 16:55 → 4W 11-09 16:14

== ENCOUNTER 2019-11-27 09:37 | Inpatient (IN) ==
[2019-11-27] MEDS ORDERED: SODIUM CHLORIDE 0.9% 500 ML IV ONE (10:29)
[2019-11-27 11:17] LABS: Basophils # (auto) 0.02 K/uL (0-0.2); Basophils % (auto) 0.2 %; Eosinophils # (auto) 0.15 K/uL (0-0.5); Eosinophils % (auto) 1.7 %; Hematocrit (blood only) 36.3 % (37-47); Hemoglobin 11.9 g/dL (12.0-16.0); Immature Granulocytes # (auto) 0.03 K/uL (0.00-0.02); Immature Granulocytes % (auto) 0.3 %; Lymphocytes # (auto) 1.23 K/uL (1.2-3.4); Lymphocytes % (auto) 13.7 %; Mean Corpuscular Hemoglobin 30.6 pg (25-34); Mean Corpuscular Hgb Conc 32.8 g/dL (32-36); Mean Corpuscular Volume 93.3 fL (80-100); Mean Platelet Volume 10.3 fL (7.4-10.4); Monocytes # (auto) 1.29 K/uL (0.11-0.59); Monocytes % (auto) 14.4 %; Neutrophils # (auto) 6.24 K/uL (1.4-6.5); Neutrophils % (auto) 69.7 %; Platelet Count 199 K/uL (130-400); RDW Standard Deviation 62.3 fL (36.4-46.3); Red Blood Count 3.89 M/uL (4.2-5.4); White Blood Count 8.96 K/uL (4.8-10.8)
[2019-11-27 11:30] LABS: INR 1.4 (0.9-1.1); Partial Thromboplastin Ratio 1.4; Partial Thromboplastin Time 38.7 Seconds (21.0-31.0)
[2019-11-27 11:34] LABS: Albumin Level 2.8 gm/dl (3.4-5.0); BUN Creatinine Ratio 29.3 (10-20); Creatinine Clr Calc Pharmacy 27.2 ml/min; Potassium 4.6 mmol/L (3.5-5.1)
[2019-11-27 11:36] LABS: Albumin Globulin Ratio 0.7 (0.9-2); Bilirubin,Total 0.6 mg/dl (0.2-1); Total Protein 6.8 gm/dl (6.4-8.2)
--- NOTE | 2019-11-27 12:41 | XRay Report ---
RIGHT FOOT 2 VIEWS CLINICAL HISTORY: Erythema. FINDINGS: AP and lateral views of the right foot are compared to study dated 11/08/2019. The skeletal structures are osteopenic. No fracture is identified. Erosive change is again seen involving the tuf t of the first distal phalanx. This is similar in appearance to the 11/08/2019 examination. 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 There is a large plantar calcan eal enthesophyte, and degenerative spurring is noted along the dorsal aspect of the tarsal bones. Dif fuse soft tissue edema is present throughout the foot. There is atherosclerotic calcification of the regional arteries. No subcutaneous gas is identified. IMPRESSION: 1. No fracture is identified. 2. Bony erosion of the tuft of the first distal phalanx is unchanged from 11/08/2019. This remains ty pical for osteomyelitis. 3. Diffuse soft tissue edema suggests cellulitis clinical correlation will be required. Electronically signed by: Bryan Borges M.D. 11/27/2019 12:40 PM
[2019-11-27] MEDS ORDERED: VANCOMYCIN CONSULT ACTIVE PRN ×2 (12:45→15:59)
[2019-11-27] MEDS ORDERED: VANCOMYCIN HCL 1,500 MG in SODIUM CHLORIDE 0.9% 500 ML IV ONE (12:45)
[2019-11-27] MEDS ORDERED: cefTRIAXone SODIUM 2,000 MG/70 ML BAG IV STA (12:45)
--- NOTE | 2019-11-27 14:06 | History & Physical Report ---
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 Failed outpatient treatment with doxycycline. Continue vanc + ceftriaxone Follow up blood cultures Consult infectious disease - known to Dr Bailon Wound care nurse consult (2) Osteomyelitis of great toe of right foot: Consult ortho as infection appears to be stemming from this although her actual osteomyelitis area appears stable as per XR reads. ESR has increased but this may just be related to current cellulitis. Consult ID (3) Peripheral arterial disease: Under Dr Lopez. Stable on last evaluation in September. Good cap refill therefore no rescan required at present. (4) Hypothyroidism: Continue levothyroxine 88 mcg daily (5) Parkinson's disease: Questionable diagnosis. Not on medications for this. (6) A-fib: Rate controlled on atenolol Anticoagulation with Eliquis (7) Central sleep apnea: Noted cyclical apneic breathing during exam. Her daughter reports this breathing pattern is chronic for the patient. However no known diagnosis of this in [facility]. Continue to monitor for improvement with cellulitis treatment. (8) Dementia: High risk of delirium while admitted. Re-orientated as needed. History of Present Illness Chief Complaint: Worsening cellulitis Primary Care Provider: [facility] Maria M Victor is a pleasant 89 year old female who resides at [facility] and was sent to the ER by wound clinic due to worsening cellulitis which appears to be spreading from her chronic osteomyelitis of 1st distal phalanx despite doxycycline use. Unobtainable history from patient due to dementia. In the ER she was started on ceftriaxone and vancomycin. She has a history of ESBL E. coli however primary source of this has been her urine. Allergies Allergy/AdvReac Type Severity Reaction Status Date / Time amoxicillin Allergy Mild RASH Verified 11/27/19 11:43 Home Medications Home Medications Medication Instructions Recorded Confirmed Type acetaminophen 325 mg capsule 650 mg PO Q6H PRN cap 07/11/18 11/27/19 History clopidogrel 75 mg tablet 75 mg PO QAM tab 07/11/18 11/27/19 History cyanocobalamin (vitamin B-12) 1,000 mcg IM UD ea 07/11/18 11/27/19 History 1,000 mcg/mL injection kit ferrous sulfate 325 mg (65 mg 325 mg PO BID tab 07/11/18 11/27/19 History iron) tablet loratadine 10 mg tablet 10 mg PO DAILY 07/11/18 11/27/19 History omega 2-lxo-wbb-fish oil 100 1 cap PO DAILY cap 07/11/18 11/27/19 History mg-160 mg-1,000 mg capsule levothyroxine 88 mcg capsule 88 mcg PO QAM 07/20/18 11/27/19 History Eliquis 2.5 mg PO BID 06/21/19 11/27/19 History ascorbic acid (vitamin C) [Vitamin 250 mg PO BID 06/21/19 11/27/19 History C] azelastine 1 spray INTRANASAL BID 06/21/19 11/27/19 History cholecalciferol (vitamin D3) 1,000 unit PO DAILY 06/21/19 11/27/19 History [Vitamin D3] magnesium hydroxide [Milk of 30 ml PO DIRECTED PRN 06/21/19 11/27/19 History Magnesia] sodium chloride [Saline Nasal] 2 spray INTRANASAL DAILY PRN 06/21/19 11/27/19 History Lactobacillus acidoph-L.bulgar 4 tab PO QIDM #0 tab 06/26/19 11/27/19 Rx [Floranex] atenolol 50 mg PO BID #60 tab 06/26/19 11/27/19 Rx multivitamin with iron-mineral 1 tab PO DAILY 11/07/19 11/27/19 History docusate sodium 100 mg PO BID #60 cap 11/10/19 11/27/19 Rx doxycycline hyclate 100 mg PO BID 21 Days #42 cap 11/10/19 11/27/19 Rx atorvastatin 40 mg PO PM 11/27/19 11/27/19 History cyclosporine 1 drp OPHTHALMIC (EYE) Q12H 11/27/19 11/27/19 History famotidine 20 mg PO BID 11/27/19 11/27/19 History potassium chloride 20 meq PO DAILY 11/27/19 11/27/19 History tramadol 100 mg PO TID PRN 11/27/19 11/27/19 History Past Med/Surg History Medical History A-fib Born in [facility] (Chronic) Chronic kidney disease (Chronic) Chronic osteomyelitis (Chronic) DVT (deep venous thrombosis) (Chronic) Dyslipidemia (Chronic) E. coli septicemia Encounter for colonoscopy due to history of adenomatous colonic polyps (Chronic) Exploratory laparotomy scar (Chronic) Gram-negative bacteremia (Acute) HTN (hypertension) (Chronic) Hypothyroid (Chronic) Metabolic encephalopathy Osteoporosis (Chronic) Pacemaker Parkinson disease (Chronic) Peripheral arterial disease (Chronic) Sepsis (Acute) Sick sinus syndrome TIA (transient ischemic attack) (Chronic) UTI (urinary tract infection) (Acute) Surgical History History of tonsillectomy and adenoidectomy (Chronic) Hx of cardiac pacemaker Family History Other No pertinent family history Social History Preferred Language: Telugu Communication Ability: [employer] Required: No Beliefs That Will Affect Care: None marital status: / Current Living Situation: Skilled Nursing Current [facility] Situation Comment[facility] Other Information That Helps Us Care for You: No Feels Safe at Home: Yes Smoking Status: Never smoker Do You Dip or Chew Tobacco: No ; Second Hand Exposure: No ; Hx Alcohol Use: No Hx Substance Use: No Review of Systems Review of Systems: Unobtainable due to cognitive status Physical Exam Constitutional: + not well nourished and no acute distress Eyes: PERRL, conjunctivae normal, anicteric sclerae ENMT: external ear and nose normal, oropharynx normal Neck: trachea midline, no thyromegaly Respiratory: normal respiratory effort, lungs clear to auscultation + prolonged expiratory phase Cyclical (repeats every 3-5 minutes) apneic breathing episodes Cardiovascular: Rate/Rhythm: + irregularly irregular Heart Sounds: no murmur Vessels: no JVD Extremities: normal capillary refill and + pedal edema (2+ on right, 1+ on left to knees); no calf tenderness Neurologic: moves all extremities, awake and + confused Motor/Sensory: no tremor and normal movement (no rigidity on exam) Psychiatric: Orientation: alert; + not oriented x 3 Results & Data Vital Signs (Past 12 Hours) Vital Signs Temp Pulse Pulse Resp BP BP Pulse Ox 11/27/19 13:00 65 18 182/100 H 96 11/27/19 11:28 66 18 143/80 H 98 11/27/19 10:37 95 11/27/19 09:44 36.3 C L 74 18 145/85 H 96 Code Status & VTE Plan Code Status DNI/DNR as discussed with her daughter, patient lack capacity to make this decision VTE Prophylaxis Plan VTE Prophylaxis will be ordered: Yes PG Care Time/CCT Total # of Minutes Spent Total Time Spent with Patient: Total time spent is greater than 50% in coordination of care (as documented) at patient's floor/unit and/or counseling patient: (1) Cellulitis Site of cellulitis: unspecified site Qualified Code(s): L03.90 - Cellulitis, unspecified (2) Hypothyroidism Hypothyroidism type: unspecified Qualified Code(s): E03.9 - Hypothyroidism, unspecified (3) A-fib Atrial fibrillation type: longstanding persistent Qualified Code(s): I48.11 - Longstanding persistent atrial fibrillation
[2019-11-27] MEDS ORDERED: ACETAMINOPHEN 325 MG TAB PO PRN (15:59)
[2019-11-27] MEDS ORDERED: SODIUM CHLORIDE 0.65% NA SOLN 45 ML (OCEAN) PRN (15:59)
[2019-11-27] MEDS ORDERED: TRAMADOL HCL 50 MG TABLET PO PRN (15:59)
[2019-11-27] MEDS ORDERED: MAGNESIUM HYDROXIDE SUSP 30 ML UDC PO PRN (15:59)
[2019-11-27] MEDS ORDERED: NON-FORMULARY MEDICATION (Cyanocobalamin (Vitamin B-12) 1,000 MCG) IM SCH (15:59)
--- NOTE | 2019-11-27 16:05 | Electrocardiogram Report ---
Test Reason : Blood Pressure : / mmHG Vent. Rate : 071 BPM Atrial Rate : 241 BPM P-R Int : 000 ms QRS Dur : 096 ms QT Int : 412 ms P-R-T Axes : 000 017 -46 degrees QTc Int : 447 ms Atrial fibrillation with occasional ventricular-paced complexes Low voltage QRS RSR' or QR pattern in V1 suggests right ventricular conduction delay Diffuse Nonspecific T wave abnormality Abnormal ECG When compared with ECG of 07-NOV-2019 13:47, HR has increased by 17 bpm Otherwise no significant change Confirmed by Vamsi Condon ([id number]) on 11/27/2019 4:05:11 PM Referred By: Confirmed By:Vamsi Condon
[2019-11-27] MEDS: FERROUS SULFATE 325 MG TAB PO SCH (17:34)
[2019-11-27] MEDS: LACTOBACILLUS ACIDOPHILUS (FLORANEX) TAB PO SCH ×2 (17:35→21:14)
--- NOTE | 2019-11-27 17:52 | Emergency Department Note ---
Entered by Tiffany Brock acting as a scribe for Rocael Thomas MD History of Present Illness General Chief complaint: Infection, Wound Time Seen by Provider: 11/27/19 10:15 Source: patient History of Present Illness Onset (ago): day(s) (today) Location: right (foot) Pain Consistency: + other (episode) Maximum Pain Intensity: 0 Quality: + other (infection) Associated symptoms: + denies other symptoms (abdominal pain), + cough and + other (rhinorrhea); no fever/chills and no loss of appetite The patient is an 89 year old female w/ PMHx A-fib, CKD, DVT, dyslipidemia, HTN, hypothyroid, osteoporosis, pacemaker, Parkinson disease, sick sinus syndrome, TIA, osteomyelitis, UTI, metabolic encephalopathy, peripheral artery disease, sepsis, tonsillectomy, and adenoidectomy who presents to the ED w/ CC of an episode of an infection starting today. The patients daughter states that she lives at [facility] and has had a wound on her right foot that has been cared for by a wound care nurse there. She states that she took her to the wound clinic today and was seen by a nurse practitioner who has never seen her before, but was concerned that this may be getting worse. She states that they sent her to the ED as they are worried she may have osteomyelitis in the right foot again. The patients daughter states that they reported that the redness in her leg has started to move up her leg, but she feels that it is the same as when she got out of the hospital last week. She reports that she does believe that the wound itself looks worse than it was. The patients daughter notes that the patient does sit in a wheel chair at all times and typically is at a table to do her daily activities that has a bar across the bottom of it. She reports that she hasnt heard that the patient injured her foot recently on it, but it is always a concern. She notes that the patient was in the hospital over [place] for an elevated calcium and lethargy. She states that they ran tests, but couldnt find anything. She reports that they did start her on Doxycy otero at that time for her foot redness. She notes that her last x-ray was 10 days ago done [address] Dr. Bautista office. The patient complains of a slight cough and rhinorrhea. The patient denies fever, chills, a history of diabetes, abdominal pain, and loss of appetite. Home Medications Home Medications Medication Instructions Recorded Confirmed Type acetaminophen 325 mg capsule 650 mg PO Q6H PRN cap 07/11/18 11/27/19 History clopidogrel 75 mg tablet 75 mg PO QAM tab 07/11/18 11/27/19 History cyanocobalamin (vitamin B-12) 1,000 mcg IM UD ea 07/11/18 11/27/19 History 1,000 mcg/mL injection kit ferrous sulfate 325 mg (65 mg 325 mg PO BID tab 07/11/18 11/27/19 History iron) tablet loratadine 10 mg tablet 10 mg PO DAILY 07/11/18 11/27/19 History omega 9-pqh-vtx-fish oil 100 1 cap PO DAILY cap 07/11/18 11/27/19 History mg-160 mg-1,000 mg capsule levothyroxine 88 mcg capsule 88 mcg PO QAM 07/20/18 11/27/19 History Eliquis 2.5 mg PO BID 06/21/19 11/27/19 History ascorbic acid (vitamin C) [Vitamin 250 mg PO BID 06/21/19 11/27/19 History C] azelastine 1 spray INTRANASAL BID 06/21/19 11/27/19 History cholecalciferol (vitamin D3) 1,000 unit PO DAILY 06/21/19 11/27/19 History [Vitamin D3] magnesium hydroxide [Milk of 30 ml PO DIRECTED PRN 06/21/19 11/27/19 History Magnesia] sodium chloride [Saline Nasal] 2 spray INTRANASAL DAILY PRN 06/21/19 11/27/19 History Lactobacillus acidoph-L.bulgar 4 tab PO QIDM #0 tab 06/26/19 11/27/19 Rx [Floranex] atenolol 50 mg PO BID #60 tab 06/26/19 11/27/19 Rx multivitamin with iron-mineral 1 tab PO DAILY 11/07/19 11/27/19 History docusate sodium 100 mg PO BID #60 cap 11/10/19 11/27/19 Rx doxycycline hyclate 100 mg PO BID 21 Days #42 cap 11/10/19 11/27/19 Rx atorvastatin 40 mg PO PM 11/27/19 11/27/19 History cyclosporine 1 drp OPHTHALMIC (EYE) Q12H 11/27/19 11/27/19 History famotidine 20 mg PO BID 11/27/19 11/27/19 History potassium chloride 20 meq PO DAILY 11/27/19 11/27/19 History tramadol 100 mg PO TID PRN 11/27/19 11/27/19 History Allergies Allergy/AdvReac Type Severity Reaction Status Date / Time amoxicillin Allergy Mild RASH Verified 11/27/19 11:43 Past Med/Surg History Medical History A-fib Born in [facility] (Chronic) Chronic kidney disease (Chronic) Chronic osteomyelitis (Chronic) DVT (deep venous thrombosis) (Chronic) Dyslipidemia (Chronic) E. coli septicemia Encounter for colonoscopy due to history of adenomatous colonic polyps (Chronic) Exploratory laparotomy scar (Chronic) Gram-negative bacteremia (Acute) HTN (hypertension) (Chronic) Hypothyroid (Chronic) Metabolic encephalopathy Osteoporosis (Chronic) Pacemaker Parkinson disease (Chronic) Peripheral arterial disease (Chronic) Sepsis (Acute) Sick sinus syndrome TIA (transient ischemic attack) (Chronic) UTI (urinary tract infection) (Acute) Surgical History History of tonsillectomy and adenoidectomy (Chronic) Hx of cardiac pacemaker Family History Other No pertinent family history Social History Preferred Language: Jamaican Communication Ability: lethagy 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 and A total of 10 systems reviewed and were otherwise negative Physical Exam Vital Signs Vital Signs - 24 hr 11/27/19 09:44 11/27/19 10:37 11/27/19 11:28 Temperature 36.3 C L Temperature Source Oral Pulse Rate 74 Pulse Rate [Apical] 66 Respiratory Rate 18 18 Blood Pressure 145/85 H Blood Pressure [Left Arm] 143/80 H Blood Pressure Mean 105 Blood Pressure Mean [Left Arm] 101 Pulse Oximetry 96 95 98 Oxygen Delivery Method Room Air Room Air Room Air Sepsis Recent Fever Within 48 Hours No Sepsis New/Unexplained Change in Mental Status No Sepsis Action Taken by Nursing No Action Required 11/27/19 13:00 Temperature Temperature Source Pulse Rate Pulse Rate [Apical] 65 Respiratory Rate 18 Blood Pressure Blood Pressure [Left Arm] 182/100 H Blood Pressure Mean Blood Pressure Mean [Left Arm] 127 Pulse Oximetry 96 Oxygen Delivery Method Room Air Sepsis Recent Fever Within 48 Hours Sepsis New/Unexplained Change in Mental Status Sepsis Action Taken by Nursing GENERAL: Well nourished, NAD, non-toxic. Wearing glasses. EYE EXAM: Normal conjunctiva. PERRL, no anisocoria and EOM's grossly intact w/o pain. OROPHARYNX: Dry mucous membranes. Grossly normal dentition. NECK: Supple, no nuchal rigidity, no adenopathy, non-tender. No signs of meningismus. LUNGS: Clear to auscultation. Normal chest wall mechanics. HEART: NSR, no MRG. ABDOMEN: Abdomen soft, non-tender, normo-active bowel sounds, no masses, no rebound or guarding. BACK: No CVA TTP. SKIN: No rashes and no bruising. UPPER EXTREMITIES: Upper extremities are grossly normal. LOWER EXTREMITIES: No pitting edema. No calf pain. Redness from the mid-kim down. No crepitus. No calor. No drainage. NVI distally. Well healing eschars over the first three toes without active drainage. Compartments soft. No crepitus. NEURO EXAM: A&O x3, cranial nerves II-XII grossly intact, normal speech, moves all 4 extremities on command w/o issue. Course Course 1022: The patient was evaluated in room B5. A complete history and physical exam was performed. 1024: Orders were placed and the patient was started on a manager heart. 1248: I reevaluated the patient and updated her on her test results. I discussed the treatment plan with her. She verbally agrees and understands. 1253: I discussed the patient's case with Dr. Bell- [facility] Hospitalist. He will evaluate the patient for further management. He is requesting an ESR and CRP. Administered Medications Ferrous Sulfate (Feosol) 325 mg PO BIDM NOHEMI Stop: 12/27/19 16:59 Last Admin: 11/27/19 17:34 Dose: 325 mg Documented by: [id number] Lactobacillus Acidophilus (Floranex) 4 tab PO QIDM NOHEMI Stop: 12/27/19 16:59 Last Admin: 11/27/19 17:35 Dose: 4 tab Documented by: [id number] Discontinued Medications Sodium Chloride (Nss) 500 mls @ 999 mls/hr IV .Q31M ONE Stop: 11/27/19 10:59 Last Infusion: 11/27/19 11:38 Dose: 0 mls/hr Documented by: [id number] Admin: 11/27/19 11:06 Dose: 999 mls/hr Documented by: [id number] Vancomycin HCl 1,500 mg/ (Sodium Chloride) 530 mls @ 200 mls/hr IV NOW ONE Stop: 11/27/19 15:23 Last Infusion: 11/27/19 17:31 Dose: 0 mls/hr Documented by: [id number] Admin: 11/27/19 13:42 Dose: 200 mls/hr Documented by: [id number] Ceftriaxone Sodium (Rocephin) 2,000 mg in 70 mls @ 140 mls/hr IV NOW STA Stop: 11/27/19 13:14 Last Infusion: 11/27/19 13:35 Dose: 0 mls/hr Documented by: [id number] Admin: 11/27/19 13:01 Dose: 140 mls/hr Documented by: [id number] Medical Decision Making Differential Diagnosis Differential diagnosis includes etiologies such as cellulitis, abscess, MRSA infection, DVT, necrotizing fasciitis, dermatitis, drug eruption, osteomyelitis, vasculitis, as well as others were entertained. Medical Records Attestation: I reviewed the patient's medical records. Home Medications Current Medication List: was personally reviewed by me Laboratory Data Attestation: I reviewed the patient's lab results. Result diagrams: 11/27/19 11:00 11/27/19 11:00 Lab Results 11/27/19 11/27/19 11/27/19 Range/Units 11:00 11:00 11:00 WBC 8.96 (4.8-10.8) K/uL RBC 3.89 L (4.2-5.4) M/uL Hgb 11.9 L (12.0-16.0) g/dL Hct 36.3 L (37-47) % MCV 93.3 (80-100) fL MCH 30.6 (25-34) pg MCHC 32.8 (32-36) g/dL RDW Std Deviation 62.3 H (36.4-46.3) fL RDW Coeff of Stephani 19.0 H (11.5-14.5) % Plt Count 199 (130-400) K/uL MPV 10.3 (7.4-10.4) fL Immature Gran % (Auto) 0.3 % Neut % (Auto) 69.7 % Lymph % (Auto) 13.7 % [place] % (Auto) 14.4 % Eos % (Auto) 1.7 % Baso % (Auto) 0.2 % Immature Gran # (Auto) 0.03 H (0.00-0.02) K/uL Neut # (Auto) 6.24 (1.4-6.5) K/uL Lymph # (Auto) 1.23 (1.2-3.4) K/uL [place] # (Auto) 1.29 H (0.11-0.59) K/uL Eos # (Auto) 0.15 (0-0.5) K/uL Baso # (Auto) 0.02 (0-0.2) K/uL ESR (0-21) mm/hr PT (9.0-12.0) Seconds INR (0.9-1.1) APTT (21.0-31.0) Seconds PTT Ratio Sodium (136-145) mmol/L Potassium (3.5-5.1) mmol/L Chloride (98-107) mmol/L Carbon Dioxide (21-32) mmol/L Anion Gap (3-11) BUN (7-18) mg/dl Creatinine (0.6-1.2) mg/dl Est Cr Clr Drug Dosing ml/min Est GFR ( Amer) Est GFR (Non-Af Amer) BUN/Creatinine Ratio (10-20) Glucose (70-99) mg/dl Lactate 1.5 (0.4-2.0) mmol/L Calcium (8.5-10.1) mg/dl Magnesium (1.8-2.4) mg/dl Total Bilirubin (0.2-1) mg/dl AST (15-37) U/L ALT (12-78) U/L Alkaline Phosphatase (45-117) U/L C-Reactive Protein (0-0.29) mg/dl Total Protein (6.4-8.2) gm/dl Albumin (3.4-5.0) gm/dl Globulin (2.5-4.0) gm/dl Albumin/Globulin Ratio (0.9-2) Procalcitonin < 0.05 (0-0.5) ng/ml 11/27/19 11/27/19 11/27/19 Range/Units 11:00 11:00 11:00 WBC (4.8-10.8) K/uL RBC (4.2-5.4) M/uL Hgb (12.0-16.0) g/dL Hct (37-47) % MCV (80-100) fL MCH (25-34) pg MCHC (32-36) g/dL RDW Std Deviation (36.4-46.3) fL RDW Coeff of Stephani (11.5-14.5) % Plt Count (130-400) K/uL MPV (7.4-10.4) fL Immature Gran % (Auto) % Neut % (Auto) % Lymph % (Auto) % [place] % (Auto) % Eos % (Auto) % Baso % (Auto) % Immature Gran # (Auto) (0.00-0.02) K/uL Neut # (Auto) (1.4-6.5) K/uL Lymph # (Auto) (1.2-3.4) K/uL [place] # (Auto) (0.11-0.59) K/uL Eos # (Auto) (0-0.5) K/uL Baso # (Auto) (0-0.2) K/uL ESR 36 H (0-21) mm/hr PT 14.0 H (9.0-12.0) Seconds INR 1.4 H (0.9-1.1) APTT 38.7 H (21.0-31.0) Seconds PTT Ratio 1.4 Sodium 140 (136-145) mmol/L Potassium 4.6 (3.5-5.1) mmol/L Chloride 114 H (98-107) mmol/L Carbon Dioxide 24 (21-32) mmol/L Anion Gap 2.0 L (3-11) BUN 33 H (7-18) mg/dl Creatinine 1.11 (0.6-1.2) mg/dl Est Cr Clr Drug Dosing 27.2 ml/min Est GFR ( Amer) 51.0 Est GFR (Non-Af Amer) 44.0 BUN/Creatinine Ratio 29.3 H (10-20) Glucose 108 H (70-99) mg/dl Lactate (0.4-2.0) mmol/L Calcium 9.0 (8.5-10.1) mg/dl Magnesium 2.0 (1.8-2.4) mg/dl Total Bilirubin 0.6 (0.2-1) mg/dl AST 22 (15-37) U/L ALT 25 (12-78) U/L Alkaline Phosphatase 133 H (45-117) U/L C-Reactive Protein (0-0.29) mg/dl Total Protein 6.8 (6.4-8.2) gm/dl Albumin 2.8 L (3.4-5.0) gm/dl Globulin 4.0 (2.5-4.0) gm/dl Albumin/Globulin Ratio 0.7 L (0.9-2) Procalcitonin (0-0.5) ng/ml 11/27/19 Range/Units 11:00 WBC (4.8-10.8) K/uL RBC (4.2-5.4) M/uL Hgb (12.0-16.0) g/dL Hct (37-47) % MCV (80-100) fL MCH (25-34) pg MCHC (32-36) g/dL RDW Std Deviation (36.4-46.3) fL RDW Coeff of Stephani (11.5-14.5) % Plt Count (130-400) K/uL MPV (7.4-10.4) fL Immature Gran % (Auto) % Neut % (Auto) % Lymph % (Auto) % [place] % (Auto) % Eos % (Auto) % Baso % (Auto) % Immature Gran # (Auto) (0.00-0.02) K/uL Neut # (Auto) (1.4-6.5) K/uL Lymph # (Auto) (1.2-3.4) K/uL [place] # (Auto) (0.11-0.59) K/uL Eos # (Auto) (0-0.5) K/uL Baso # (Auto) (0-0.2) K/uL ESR (0-21) mm/hr PT (9.0-12.0) Seconds INR (0.9-1.1) APTT (21.0-31.0) Seconds PTT Ratio Sodium (136-145) mmol/L Potassium (3.5-5.1) mmol/L Chloride (98-107) mmol/L Carbon Dioxide (21-32) mmol/L Anion Gap (3-11) BUN (7-18) mg/dl Creatinine (0.6-1.2) mg/dl Est Cr Clr Drug Dosing ml/min Est GFR ( Amer) Est GFR (Non-Af Amer) BUN/Creatinine Ratio (10-20) Glucose (70-99) mg/dl Lactate (0.4-2.0) mmol/L Calcium (8.5-10.1) mg/dl Magnesium (1.8-2.4) mg/dl Total Bilirubin (0.2-1) mg/dl AST (15-37) U/L ALT (12-78) U/L Alkaline Phosphatase (45-117) U/L C-Reactive Protein 3.12 H (0-0.29) mg/dl Total Protein (6.4-8.2) gm/dl Albumin (3.4-5.0) gm/dl Globulin (2.5-4.0) gm/dl Albumin/Globulin Ratio (0.9-2) Procalcitonin (0-0.5) ng/ml Imaging Data Radiologist's Impression: Radiology results as stated below per my review and the radiologist's interpretation: RIGHT FOOT 2 VIEWS CLINICAL HISTORY: Erythema. FINDINGS: AP and lateral views of the right foot are compared to study dated 11/08/2019. The skeletal structures are osteopenic. No fracture is identified. Erosive change is again seen involving the tuft of the first distal phalanx. This is similar in appearance to the 11/08/2019 examination. 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 There is a large plantar calcaneal enthesophyte, and degenerative spurring is noted along the dorsal aspect of the tarsal bones. Diffuse soft tissue edema is present throughout the foot. There is atherosclerotic calcification of the regional arteries. No subcutaneous gas is identified. IMPRESSION: 1. No fracture is identified. 2. Bony erosion of the tuft of the first distal phalanx is unchanged from 11/08/2019. This remains typical for osteomyelitis. 3. Diffuse soft tissue edema suggests cellulitis clinical correlation will be required. Electronically signed by: Bryan Borges M.D. 11/27/2019 12:40 PM ECG Data Attestation: I personally reviewed and interpreted this ECG as follows: Indication: + other (possible infection) Rate (beats per minute): 71 Rhythm: + atrial fibrillation ECG Intervals/blocks: + Normal QRS ECG Ragley: + Left axis deviation ECG Findings: + Q waves (Inferior) Comparison ECG Date: from (11/07/2019) Change: no significant change Blood Pressure Blood Pressure Findings: Elevated blood pressure Blood Pressure Disposition: Referred to patients primary care provider MDM Narrative The patient is an 89 year old female w/ PMHx A-fib, CKD, DVT, dyslipidemia, HTN, hypothyroid, osteoporosis, pacemaker, Parkinson disease, sick sinus syndrome, TIA, osteomyelitis, UTI, metabolic encephalopathy, peripheral artery disease, sepsis, tonsillectomy, and adenoidectomy who presents to the ED w/ CC of an episode of an infection starting today. Patient was seen and evaluated the bedside. The patient was referred from wound clinic due to worsening redness over the right lower extremity. Patient does have a prior history of chronic osteo-and is on doxycycline. The patient does have the redness and the redness worsened approximately 1 week ago but is been fairly stable. The patient does not have warmth although the patient does have some eschars over the distal toes. Patient otherwise is neuro intact distally. Compartment soft. Blood work was obtained. Patient still has persistent osteomyelitis and given this concern with the cellulitis versus vasculitis will he should benefit from inpatient treatment and consultation. I did speak with the on-call hospitalist who agreed to further evaluate and treat the patient. Patient was subsequently admitted to the medicine service. Impression & Plan Osteomyelitis, Cellulitis Discharge Plan Visit Data *Final* Discharge Date/Time: 11/27/19 15:04 Chief Complaint: Infection, Wound ED Provider: Rocael Thomas Discharge Problem: Osteomyelitis, Cellulitis Patient Disposition: Admitted As Inpatient Discharge Instructions Interventions: ED Discharge Assessment Last Done: 11/27/19 15:04 Discharge Problem: Osteomyelitis Qualifiers: Osteomyelitis type: unspecified type Osteomyelitis location: foot Laterality: right Qualified Code(s): M86.9 - Osteomyelitis, unspecified Cellulitis Qualifiers: Site of cellulitis: unspecified site Qualified Code(s): L03.90 - Cellulitis, unspecified The scribe's documentation has been prepared under my direction and personally reviewed by me in its entirety. I confirm that the note above accurately reflects all work, treatment, procedures, and medical decision making performed by me.
--- NOTE | 2019-11-27 20:43 | Pharmacy Report ---
Pharmacy Abx Dose Short Note - Date of Service November 27, 2019 - Assessment & Plan Assessment 89 year old F receiving IV Vancomycin and Ceftriaxone (not a consult) for treatment of cellulitis, osteomyelitis Day # 1 of antimicrobial therapy. * Most recent sCr = 1.11 mg/dL, CrCl ~27 mL/min; estimated pharmacokinetic parameters: * Ke ~0.027/hr, T1/2 ~25.7 hrs * Vancomycin 1500mg (~25mg/kg) IV x 1 was given as a loading dose in the ED Plan Vancomycin * Initiate Vancomycin 1000mg (~16.7 mg/kg) IV q24 as maintenance regimen * Goal trough level for cellulitis, osteomyelitis : 15 to 20 mcg/mL * Trough level ordered for: 11/29/19 @ 1330 (prior to 2nd dose and therefore not reflective of steady state, but want to assess dosing regimen early due to severity of infection and unpredictable pharmacokinetics in elderly female with renal impairment) Pharmacy will continue to follow and will adjust dose/frequency as necessary. Thank you.
[2019-11-27] MEDS: DOCUSATE SODIUM 100 MG CAP PO SCH (21:13)
[2019-11-27] MEDS: ATORVASTATIN 40 MG TAB PO SCH (21:15)
[2019-11-27] MEDS: ATENOLOL 50 MG TABLET PO SCH (21:16)
[2019-11-27] MEDS: ASCORBIC ACID 500 MG TAB PO SCH (21:19)
[2019-11-27] MEDS: APIXABAN 2.5 MG TAB PO SCH (21:20)
[2019-11-27] MEDS: RESTASIS: ORDER AWAITING ACTION SCH (23:49)
[2019-11-27] MEDS: AZELASTINE: ORDER AWAITING ACTION SCH (23:49)
[2019-11-28] MEDS ORDERED: LEVOTHYROXINE SODIUM 88 MCG TABLET PO SCH (06:30)
[2019-11-28] MEDS: AZELASTINE: ORDER AWAITING ACTION SCH ×2 (07:10→17:16)
[2019-11-28] MEDS: RESTASIS: ORDER AWAITING ACTION SCH ×2 (07:11→17:16)
[2019-11-28] MEDS: POTASSIUM CHLORIDE 20 MEQ TABCR PO SCH (07:40)
[2019-11-28] MEDS: FERROUS SULFATE 325 MG TAB PO SCH ×2 (07:40→17:47)
[2019-11-28] MEDS: OMEGA-3 (PURIFIED FISH OIL) 1 GM CAP PO SCH (07:40)
[2019-11-28] MEDS: CEROVITE ADV FORMULA TAB PO SCH (07:40)
[2019-11-28] MEDS: APIXABAN 2.5 MG TAB PO SCH ×2 (07:40→20:57)
[2019-11-28] MEDS: LACTOBACILLUS ACIDOPHILUS (FLORANEX) TAB PO SCH ×4 (07:40→20:57)
[2019-11-28] MEDS: LORATADINE 10 MG TAB PO SCH (07:40)
[2019-11-28] MEDS: DOCUSATE SODIUM 100 MG CAP PO SCH ×2 (07:40→20:56)
[2019-11-28] MEDS: ASCORBIC ACID 500 MG TAB PO SCH ×2 (07:41→20:56)
[2019-11-28] MEDS: ATENOLOL 50 MG TABLET PO SCH ×2 (07:41→20:57)
[2019-11-28] MEDS: FAMOTIDINE 20 MG TAB PO SCH (07:41)
[2019-11-28] MEDS: CLOPIDOGREL BISULFATE 75 MG TAB PO SCH (07:41)
[2019-11-28] MEDS: CHOLECALCIFEROL 1,000 UNITS 25 MCG TAB PO SCH (07:42)
[2019-11-28 08:30] LABS: Basophils # (auto) 0.03 K/uL (0-0.2); Basophils % (auto) 0.4 %; Eosinophils # (auto) 0.23 K/uL (0-0.5); Eosinophils % (auto) 2.8 %; Hematocrit (blood only) 38.8 % (37-47); Hemoglobin 12.7 g/dL (12.0-16.0); Immature Granulocytes # (auto) 0.05 K/uL (0.00-0.02); Immature Granulocytes % (auto) 0.6 %; Lymphocytes # (auto) 1.52 K/uL (1.2-3.4); Lymphocytes % (auto) 18.4 %; Mean Corpuscular Hemoglobin 30.8 pg (25-34); Mean Corpuscular Hgb Conc 32.7 g/dL (32-36); Mean Corpuscular Volume 93.9 fL (80-100); Mean Platelet Volume 10.1 fL (7.4-10.4); Monocytes # (auto) 1.17 K/uL (0.11-0.59); Monocytes % (auto) 14.2 %; Neutrophils # (auto) 5.26 K/uL (1.4-6.5); Neutrophils % (auto) 63.6 %; Platelet Count 215 K/uL (130-400); RDW Coefficient of Variation 19.1 % (11.5-14.5); RDW Standard Deviation 63.7 fL (36.4-46.3); Red Blood Count 4.13 M/uL (4.2-5.4); White Blood Count 8.26 K/uL (4.8-10.8)
[2019-11-28 09:00] LABS: BUN Creatinine Ratio 31.2 (10-20); Calcium 9.5 mg/dl (8.5-10.1); Creatinine Clr Calc Pharmacy 32.1 ml/min; Est GFR (African American) 56.5; Est GFR (Non-African American) 48.7; Potassium 4.7 mmol/L (3.5-5.1)
[2019-11-28 09:10] LABS: Thyroid Stimulating Hormone 19.9 uIu/ml (0.300-4.500)
[2019-11-28 09:25] LABS: T4 Free Thyroxine 1.15 ng/dl (0.8-1.6)
[2019-11-28] MEDS: cefTRIAXone SODIUM 2,000 MG in DEXTROSE 5% 50 ML IV SCH (12:34)
--- NOTE | 2019-11-28 12:56 | Infectious Disease Consult ---
Date of Consultation November 28, 2019 Supervising Physician Co-Signing Physician Notes unable to place A/P in [facility] at this time would continue emperic abx, would benefit from debridement and culture. will follow. History of Present Illness Attending Physician: Jaxon Lara MD pt admitted from wound center due to increased erythema right foot. was recently evaluated by ortho as well. referred to wound center. was placed on doxy but had clinicial worsening, states pain in foot. no f/c. was tolerating doxy, now on ctx and vanco, tolerating well.no abd pain, no n/v/d. no drainage from foot, family at bedside, provide history. Was to have intitial ID visit at wound center next week. ESR 36, creat 1.1. procalcitonin <0.05. imaging reveals osteo first digit. Blood cultures pending, no wound culture to review. Allergies Allergy/AdvReac Type Severity Reaction Status Date / Time amoxicillin Allergy Mild RASH Verified 11/27/19 11:43 Home Medications Home Medications Medication Instructions Recorded Confirmed Type acetaminophen 325 mg capsule 650 mg PO Q6H PRN cap 07/11/18 11/27/19 History clopidogrel 75 mg tablet 75 mg PO QAM tab 07/11/18 11/27/19 History cyanocobalamin (vitamin B-12) 1,000 mcg IM UD ea 07/11/18 11/27/19 History 1,000 mcg/mL injection kit ferrous sulfate 325 mg (65 mg 325 mg PO BID tab 07/11/18 11/27/19 History iron) tablet loratadine 10 mg tablet 10 mg PO DAILY 07/11/18 11/27/19 History omega 7-yru-jbj-fish oil 100 1 cap PO DAILY cap 07/11/18 11/27/19 History mg-160 mg-1,000 mg capsule levothyroxine 88 mcg capsule 88 mcg PO QAM 07/20/18 11/27/19 History Eliquis 2.5 mg PO BID 06/21/19 11/27/19 History ascorbic acid (vitamin C) [Vitamin 250 mg PO BID 06/21/19 11/27/19 History C] azelastine 1 spray INTRANASAL BID 06/21/19 11/27/19 History cholecalciferol (vitamin D3) 1,000 unit PO DAILY 06/21/19 11/27/19 History [Vitamin D3] magnesium hydroxide [Milk of 30 ml PO DIRECTED PRN 06/21/19 11/27/19 History Magnesia] sodium chloride [Saline Nasal] 2 spray INTRANASAL DAILY PRN 06/21/19 11/27/19 History Lactobacillus acidoph-L.bulgar 4 tab PO QIDM #0 tab 06/26/19 11/27/19 Rx [Floranex] atenolol 50 mg PO BID #60 tab 06/26/19 11/27/19 Rx multivitamin with iron-mineral 1 tab PO DAILY 11/07/19 11/27/19 History docusate sodium 100 mg PO BID #60 cap 11/10/19 11/27/19 Rx doxycycline hyclate 100 mg PO BID 21 Days #42 cap 11/10/19 11/27/19 Rx atorvastatin 40 mg PO PM 11/27/19 11/27/19 History cyclosporine 1 drp OPHTHALMIC (EYE) Q12H 11/27/19 11/27/19 History famotidine 20 mg PO BID 11/27/19 11/27/19 History potassium chloride 20 meq PO DAILY 11/27/19 11/27/19 History tramadol 100 mg PO TID PRN 11/27/19 11/27/19 History Patient History Medical History A-fib Born in [facility] (Chronic) Chronic kidney disease (Chronic) Chronic osteomyelitis (Chronic) DVT (deep venous thrombosis) (Chronic) Dyslipidemia (Chronic) E. coli septicemia Encounter for colonoscopy due to history of adenomatous colonic polyps (Chronic) Exploratory laparotomy scar (Chronic) Gram-negative bacteremia (Acute) HTN (hypertension) (Chronic) Hypothyroid (Chronic) Metabolic encephalopathy Osteoporosis (Chronic) Pacemaker Parkinson disease (Chronic) Peripheral arterial disease (Chronic) Sepsis (Acute) Sick sinus syndrome TIA (transient ischemic attack) (Chronic) UTI (urinary tract infection) (Acute) Surgical History History of tonsillectomy and adenoidectomy (Chronic) Hx of cardiac pacemaker Family History Other No pertinent family history Social History (Reviewed 11/28/19 @ 12:55 by QUENTIN Villar Preferred Language: Uzbek Communication Ability: Impaired 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 Beliefs That Will Affect Care: None marital status: / Current Living Situation: Custodial Current Living Situation Comment: [facility] Other Information That Helps Us Care for You: No Feels Safe at Home: Yes Smoking Status: Never smoker Do You Dip or Chew Tobacco: No ; Second Hand Exposure: No ; Hx Alcohol Use: No Hx Substance Use: No Review of Systems Review of Systems: All systems reviewed & are unremarkable except as noted in HPI & below Physical Exam Constitutional: WD/WN, vitals as above Eyes: PERRL, conjunctivae normal, anicteric sclerae ENMT: external ear and nose normal, oropharynx normal Neck: normal visual inspection Respiratory: normal respiratory effort, lungs clear to auscultation Cardiovascular: RRR, no murmur, no edema Gastrointestinal (Abdomen): normal bowel sounds, soft, nontender, no hepatosplenomegaly Musculoskeletal: no cyanosis or clubbing, extremities motor strength 5/5 Skin: no rashes, warm and dry + wound (necrotic tissue first and second toe, no drainage) Psychiatric: A+Ox3, euthymic affect Results & Data Vital Signs (Past 12 Hours) Vital Signs Temp Pulse Pulse Resp BP BP Pulse Ox 11/28/19 11:12 36.5 C 65 18 149/89 H 97 11/28/19 08:00 61 11/28/19 07:26 36.4 C L 67 18 148/81 H 99 11/28/19 03:12 36.9 C 72 16 139/76 92 PG Care Time/CCT Total # of Minutes Spent Total Time Spent with Patient: Total time spent is greater than 50% in coordination of care (as documented) at patient's floor/unit and/or counseling patient:
--- NOTE | 2019-11-28 12:58 | Hospitalist Progress Note ---
Date of Service November 28, 2019 Assessment & Plan (1) Cellulitis: - Right lower extremity cellulitis in setting of chronic osteomyelitis; failed outpatient treatment with Doxycycline. - Wound culture pending; Blood cultures negative to date. - Consulting ID and wound care nurse. - Continue Ceftriaxone and Vancomycin for empiric coverage. (2) Osteomyelitis of great toe of right foot: - Follows with ortho; osteomyelitis appears stable on XR, unchanged from 11/08/19. - Consulting orthopedics as inpatient. - Continue Ceftriaxone/Vanco as noted above. (3) Peripheral arterial disease: - Follows with Dr. Lopez. - Continue statin, plavix as prescribed. (4) A-fib: - Currently in A. fib/flutter, rate controlled on monitor. - Continue Atenolol 50 mg BID and Eliquis 2.5 mg BID. (5) TIA (transient ischemic attack): - H/o; continue statin and Plavix as prescribed. (6) HTN (hypertension): - Continue Atenolol as prescribed. (7) DVT (deep venous thrombosis): - H/o; continue renally dosed Eliquis. (8) CKD (chronic kidney disease), stage III: - Creatinine is currently at baseline, will monitor. (9) Hypothyroidism: - TSH is 19.9; will increase to 100 mcg daily. - Will need repeat TFTs in 3-4 weeks. (10) Dementia: - Re-orient frequently; no evidence of acute hospital delirium at this time. (11) Central sleep apnea: - Noted cyclical apneic breathing during exam. Her daughter reports this breathing pattern is chronic for the patient. - Continue to monitor respiratory status closely. Dispo: Med/surg for treatment of cellulitis. Ortho and ID following. PT/OT evaluation for discharge planning. Supervising Physician Co-Signing Physician Notes I have seen and examined patient with Marcelina Ball PA-C and agree with assessment and plan. Subjective Cannot obtain detailed history due to dementia. Pt. reports she has pain in right leg but is otherwise feeling okay. Dressing in place over right leg, cannot examine area. Review of Systems Review of Systems: Other (Limited due to dementia) Constitutional: + fatigue and + weakness; no fever and no chills Integumentary: + skin ulcer and + erythema Physical Exam Physical Exam: General: Resting comfortably HEENT: NC/AT; PERRLA with EOMI; [place] conjunctiva, MMM. No erythema of posterior pharynx Neck: Supple and nontender Cardiac: RRR Lungs: CTA bilaterally Abdomen: Bowel normoactive X 4; Nontender to palpation Extremities: Warm. No edema present Neuro: No focal weakness; evidence of dementia/confusion. Skin: Erythema noted on RLE from mid calf distally. Dressing in place, cannot examine digit wounds. Results & Data Vital Signs (Past 12 Hours) Vital Signs Temp Pulse Pulse Resp BP BP Pulse Ox 11/28/19 11:12 36.5 C 65 18 149/89 H 97 11/28/19 08:00 61 11/28/19 07:26 36.4 C L 67 18 148/81 H 99 11/28/19 03:12 36.9 C 72 16 139/76 92 Laboratory Results 11/28/19 11/28/19 11/27/19 Range/Units 07:38 07:38 17:45 WBC 8.26 (4.8-10.8) K/uL RBC 4.13 L (4.2-5.4) M/uL Hgb 12.7 (12.0-16.0) g/dL Hct 38.8 (37-47) % MCV 93.9 (80-100) fL MCH 30.8 (25-34) pg MCHC 32.7 (32-36) g/dL RDW Std Deviation 63.7 H (36.4-46.3) fL RDW Coeff of Stephani 19.1 H (11.5-14.5) % Plt Count 215 (130-400) K/uL MPV 10.1 (7.4-10.4) fL Immature Gran % (Auto) 0.6 % Neut % (Auto) 63.6 % Lymph % (Auto) 18.4 % [place] % (Auto) 14.2 % Eos % (Auto) 2.8 % Baso % (Auto) 0.4 % Immature Gran # (Auto) 0.05 H (0.00-0.02) K/uL Neut # (Auto) 5.26 (1.4-6.5) K/uL Lymph # (Auto) 1.52 (1.2-3.4) K/uL [place] # (Auto) 1.17 H (0.11-0.59) K/uL Eos # (Auto) 0.23 (0-0.5) K/uL Baso # (Auto) 0.03 (0-0.2) K/uL ESR (0-21) mm/hr Sodium 142 (136-145) mmol/L Potassium 4.7 (3.5-5.1) mmol/L Chloride 115 H (98-107) mmol/L Carbon Dioxide 22 (21-32) mmol/L Anion Gap 5.0 (3-11) BUN 32 H (7-18) mg/dl Creatinine 1.02 (0.6-1.2) mg/dl Est Cr Clr Drug Dosing 32.1 ml/min Est GFR ( Amer) 56.5 Est GFR (Non-Af Amer) 48.7 BUN/Creatinine Ratio 31.2 H (10-20) Glucose 85 (70-99) mg/dl Calcium 9.5 (8.5-10.1) mg/dl C-Reactive Protein (0-0.29) mg/dl TSH 19.900 H (0.300-4.500) uIu/ml Free T4 1.15 (0.8-1.6) ng/dl Nasal Screen MRSA (PCR) Negative (Negative) 11/27/19 11/27/19 Range/Units 11:00 11:00 WBC (4.8-10.8) K/uL RBC (4.2-5.4) M/uL Hgb (12.0-16.0) g/dL Hct (37-47) % MCV (80-100) fL MCH (25-34) pg MCHC (32-36) g/dL RDW Std Deviation (36.4-46.3) fL RDW Coeff of Stephani (11.5-14.5) % Plt Count (130-400) K/uL MPV (7.4-10.4) fL Immature Gran % (Auto) % Neut % (Auto) % Lymph % (Auto) % [place] % (Auto) % Eos % (Auto) % Baso % (Auto) % Immature Gran # (Auto) (0.00-0.02) K/uL Neut # (Auto) (1.4-6.5) K/uL Lymph # (Auto) (1.2-3.4) K/uL [place] # (Auto) (0.11-0.59) K/uL Eos # (Auto) (0-0.5) K/uL Baso # (Auto) (0-0.2) K/uL ESR 36 H (0-21) mm/hr Sodium (136-145) mmol/L Potassium (3.5-5.1) mmol/L Chloride (98-107) mmol/L Carbon Dioxide (21-32) mmol/L Anion Gap (3-11) BUN (7-18) mg/dl Creatinine (0.6-1.2) mg/dl Est Cr Clr Drug Dosing ml/min Est GFR ( Amer) Est GFR (Non-Af Amer) BUN/Creatinine Ratio (10-20) Glucose (70-99) mg/dl Calcium (8.5-10.1) mg/dl C-Reactive Protein 3.12 H (0-0.29) mg/dl TSH (0.300-4.500) uIu/ml Free T4 (0.8-1.6) ng/dl Nasal Screen MRSA (PCR) (Negative) PG Care Time/CCT Total # of Minutes Spent Total Time Spent with Patient: Total time spent is greater than 50% in coordination of care (as documented) at patient's floor/unit and/or counseling patient: (1) A-fib Atrial fibrillation type: longstanding persistent Qualified Code(s): I48.11 - Longstanding persistent atrial fibrillation (2) Cellulitis Site of cellulitis: unspecified site Qualified Code(s): L03.90 - Cellulitis, unspecified (3) Hypothyroidism Hypothyroidism type: unspecified Qualified Code(s): E03.9 - Hypothyroidism, unspecified
[2019-11-28] MEDS: VANCOMYCIN HCL 1,000 MG in SODIUM CHLORIDE 0.9% 250 ML IV SCH (13:30)
[2019-11-28] MEDS ORDERED: cefTRIAXone SODIUM 2,000 MG/70 ML BAG IV SCH (14:00)
--- NOTE | 2019-11-28 16:04 | Orthopedic Consultation ---
Date of Consultation November 28, 2019 Assessment & Plan (1) Chronic osteomyelitis: Patient was seen and evaluated today by Dr. Bae. She has evolving necrosis of her toes of her right foot with surrounding cellulitis. Recommendations would be to do a transmetatarsal amputation versus a below-knee amputation. Due to her peripheral artery disease she is a poor candidate for wound healing. She is had the wound on her right great toe for [address] Bae will discuss findings and recommendations with her daughter later today. After their discussion he will addend the plan based on her decision. Thank you for this consultation. Please call our office with any questions. We will continue to follow. History of Present Illness Reason for Consultation: right foot necrosis, chronic osteomyelitis Attending Physician: Jaxon Lara MD History of Present Illness Patient is a pleasant 89-year-old resting in bed. She resides at [facility] and is currently nonambulator. Most of the time she gets around in a wheelchair. She saw Dr. Bae a few weeks ago as an outpatient for chronic osteo-of her right great toe distal phalanx. She also had some open wounds of the third and fourth toes and some necrosis of the second toe. At that visit she was accompanied by her daughter. She went to the wound clinic Wednesday and it was noted that she had some increased redness swelling of her right foot. She was referred to the emergency room for inpatient hospitalization. She was admitted by the hospitalist service and has been on IV antibiotics. Dr. Bae was consulted for evaluation of her right foot. Today she states that her foot is less painful. Is mildly less swollen. There is still some redness. She has also been seen by Dr. Bailon from infectious disease. She has a light dressing on her right foot. She denies any fevers or chills or any other pain or issues anywhere else. She was seen today by myself as well as Dr. Bae. Allergies Allergy/AdvReac Type Severity Reaction Status Date / Time amoxicillin Allergy Mild RASH Verified 11/27/19 11:43 Home Medications Home Medications Medication Instructions Recorded Confirmed Type acetaminophen 325 mg capsule 650 mg PO Q6H PRN cap 07/11/18 11/27/19 History clopidogrel 75 mg tablet 75 mg PO QAM tab 07/11/18 11/27/19 History cyanocobalamin (vitamin B-12) 1,000 mcg IM UD ea 07/11/18 11/27/19 History 1,000 mcg/mL injection kit ferrous sulfate 325 mg (65 mg 325 mg PO BID tab 07/11/18 11/27/19 History iron) tablet loratadine 10 mg tablet 10 mg PO DAILY 07/11/18 11/27/19 History omega 4-ico-inc-fish oil 100 1 cap PO DAILY cap 07/11/18 11/27/19 History mg-160 mg-1,000 mg capsule levothyroxine 88 mcg capsule 88 mcg PO QAM 07/20/18 11/27/19 History Eliquis 2.5 mg PO BID 06/21/19 11/27/19 History ascorbic acid (vitamin C) [Vitamin 250 mg PO BID 06/21/19 11/27/19 History C] azelastine 1 spray INTRANASAL BID 06/21/19 11/27/19 History cholecalciferol (vitamin D3) 1,000 unit PO DAILY 06/21/19 11/27/19 History [Vitamin D3] magnesium hydroxide [Milk of 30 ml PO DIRECTED PRN 06/21/19 11/27/19 History Magnesia] sodium chloride [Saline Nasal] 2 spray INTRANASAL DAILY PRN 06/21/19 11/27/19 History Lactobacillus acidoph-L.bulgar 4 tab PO QIDM #0 tab 06/26/19 11/27/19 Rx [Floranex] atenolol 50 mg PO BID #60 tab 06/26/19 11/27/19 Rx multivitamin with iron-mineral 1 tab PO DAILY 11/07/19 11/27/19 History docusate sodium 100 mg PO BID #60 cap 11/10/19 11/27/19 Rx doxycycline hyclate 100 mg PO BID 21 Days #42 cap 11/10/19 11/27/19 Rx atorvastatin 40 mg PO PM 11/27/19 11/27/19 History cyclosporine 1 drp OPHTHALMIC (EYE) Q12H 11/27/19 11/27/19 History famotidine 20 mg PO BID 11/27/19 11/27/19 History potassium chloride 20 meq PO DAILY 11/27/19 11/27/19 History tramadol 100 mg PO TID PRN 11/27/19 11/27/19 History Patient History Medical History A-fib Born in [place] (Chronic) Chronic kidney disease (Chronic) Chronic osteomyelitis (Chronic) DVT (deep venous thrombosis) (Chronic) Dyslipidemia (Chronic) E. coli septicemia Encounter for colonoscopy due to history of adenomatous colonic polyps (Chronic) Exploratory laparotomy scar (Chronic) Gram-negative bacteremia (Acute) HTN (hypertension) (Chronic) Hypothyroid (Chronic) Metabolic encephalopathy Osteoporosis (Chronic) Pacemaker Parkinson disease (Chronic) Peripheral arterial disease (Chronic) Sepsis (Acute) Sick sinus syndrome TIA (transient ischemic attack) (Chronic) UTI (urinary tract infection) (Acute) Surgical History History of tonsillectomy and adenoidectomy (Chronic) Hx of cardiac pacemaker Family History Other No pertinent family history Social History Preferred Language: Filipino Communication Ability: Impaired Cissp Required: No Beliefs That Will Affect Care: None marital status: / Current Living Situation: [facility] Current Living Situation Comment: [facility] Feels Safe at Home: Yes Smoking Status: Never smoker Second Hand Exposure: No ; Hx Alcohol Use: No Hx Substance Use: No Review of Systems Review of Systems: As per history of present illness Physical Exam Musculoskeletal: Exam focused on her right lower extremity today. She does have distal edema of her right lower extremity with erythema of her foot and the anterior aspect of the kim. She has no calf tenderness with palpation. Her calf is supple. Dressing was removed from her right foot. No palpable pulses appreciated at the dorsalis pedis. She moves her toes well. She tolerates gentle ankle range of motion to about neutral dorsiflexion. She has some mild tenderness to palpation of the second third and fourth toes. Otherwise the foot is nontender throughout. She has no plantar erythema. There is no evidence of ecchymosis. There is no fracture blisters. She has evidence of necrosis of the second toe. She also has some evolving ischemia of that second toe with open wounds of the third and fourth toes. She has a dry ulcer at the tip of her right great toe where she has the chronic osteomyelitis of the distal phalanx. Her dressings were reapplied to her right foot. Right and left foot were elevated on a pillow and heels are off of bed. Results & Data Vital Signs (Past 12 Hours) Vital Signs Temp Pulse Pulse Pulse Resp BP Pulse Ox 11/28/19 14:40 37.0 C 80 16 129/68 94 11/28/19 11:12 36.5 C 65 18 149/89 H 97 11/28/19 08:00 61 11/28/19 07:26 36.4 C L 67 18 148/81 H 99 Laboratory Results 11/28/19 11/28/19 11/27/19 Range/Units 07:38 07:38 17:45 WBC 8.26 (4.8-10.8) K/uL RBC 4.13 L (4.2-5.4) M/uL Hgb 12.7 (12.0-16.0) g/dL Hct 38.8 (37-47) % MCV 93.9 (80-100) fL MCH 30.8 (25-34) pg MCHC 32.7 (32-36) g/dL RDW Std Deviation 63.7 H (36.4-46.3) fL RDW Coeff of Stephani 19.1 H (11.5-14.5) % Plt Count 215 (130-400) K/uL MPV 10.1 (7.4-10.4) fL Immature Gran % (Auto) 0.6 % Neut % (Auto) 63.6 % Lymph % (Auto) 18.4 % [place] % (Auto) 14.2 % Eos % (Auto) 2.8 % Baso % (Auto) 0.4 % Immature Gran # (Auto) 0.05 H (0.00-0.02) K/uL Neut # (Auto) 5.26 (1.4-6.5) K/uL Lymph # (Auto) 1.52 (1.2-3.4) K/uL [place] # (Auto) 1.17 H (0.11-0.59) K/uL Eos # (Auto) 0.23 (0-0.5) K/uL Baso # (Auto) 0.03 (0-0.2) K/uL Sodium 142 (136-145) mmol/L Potassium 4.7 (3.5-5.1) mmol/L Chloride 115 H (98-107) mmol/L Carbon Dioxide 22 (21-32) mmol/L Anion Gap 5.0 (3-11) BUN 32 H (7-18) mg/dl Creatinine 1.02 (0.6-1.2) mg/dl Est Cr Clr Drug Dosing 32.1 ml/min Est GFR ( Amer) 56.5 Est GFR (Non-Af Amer) 48.7 BUN/Creatinine Ratio 31.2 H (10-20) Glucose 85 (70-99) mg/dl Calcium 9.5 (8.5-10.1) mg/dl TSH 19.900 H (0.300-4.500) uIu/ml Free T4 1.15 (0.8-1.6) ng/dl Nasal Screen MRSA (PCR) Negative (Negative) Diagnostic Findings RIGHT FOOT 2 VIEWS CLINICAL HISTORY: Erythema. FINDINGS: AP and lateral views of the right foot are compared to study dated 11/08/2019. The skeletal structures are osteopenic. No fracture is identified. Erosive change is again seen involving the tuft of the first distal phalanx. This is similar in appearance to the 11/08/2019 examination. 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 There is a large plantar calcaneal enthesophyte, and degenerative spurring is noted along the dorsal aspect of the tarsal bones. Diffuse soft tissue edema is present throughout the foot. There is atherosclerotic calcification of the regional arteries. No subcutaneous gas is identified. IMPRESSION: 1. No fracture is identified. 2. Bony erosion of the tuft of the first distal phalanx is unchanged from 11/08/2019. This remains typical for osteomyelitis. 3. Diffuse soft tissue edema suggests cellulitis clinical correlation will be required. Medications Administered Current Inpatient Medications Acetaminophen (Tylenol) 650 mg PO Q6H PRN PRN Reason: pain/fever Stop: 12/27/19 15:58 Apixaban (Eliquis) 2.5 mg PO BID [facility] Stop: 12/27/19 20:59 Last Admin: 11/28/19 07:40 Dose: 2.5 mg Documented by: Ascorbic Acid (Vitamin C) 250 mg PO BID NOHEMI Stop: 12/27/19 20:59 Last Admin: 11/28/19 07:41 Dose: 250 mg Documented by: Atenolol (Tenormin) 50 mg PO BID [facility] Stop: 12/27/19 20:59 Last Admin: 11/28/19 07:41 Dose: 50 mg Documented by: Atorvastatin Calcium (Lipitor) 40 mg PO PM [facility] Stop: 12/27/19 20:59 Last Admin: 11/27/19 21:15 Dose: 40 mg Documented by: Clopidogrel Bisulfate (Plavix) 75 mg PO QAM [facility] Stop: 12/28/19 08:59 Last Admin: 11/28/19 07:41 Dose: 75 mg Documented by: Docusate Sodium (Colace) 100 mg PO BID [facility] Stop: 12/27/19 20:59 Last Admin: 11/28/19 07:40 Dose: 100 mg Documented by: Famotidine (Pepcid) 20 mg PO QAM [facility] Stop: 12/28/19 08:59 Last Admin: 11/28/19 07:41 Dose: 20 mg Documented by: Ferrous Sulfate (Feosol) 325 mg PO BIDM [facility] Stop: 12/27/19 16:59 Last Admin: 11/28/19 07:40 Dose: 325 mg Documented by: Fish Oil ([place]-3 (Purified Fish Oil)) 1 gm PO DAILY [facility] Stop: 12/28/19 08:59 Last Admin: 11/28/19 07:40 Dose: 1 gm Documented by: Vancomycin HCl 1,000 mg/ (Sodium Chloride) 270 mls @ 125 mls/hr IV Q24H [facility]; Protocol Stop: 01/09/20 13:59 Last Admin: 11/28/19 13:30 Dose: 125 mls/hr Documented by: Ceftriaxone Sodium 2,000 mg/ (Dextrose) 70 mls @ 140 mls/hr IV Q24H [facility]; Protocol Stop: 01/09/20 12:59 Last Infusion: 11/28/19 13:10 Dose: Infused Documented by: Lactobacillus Acidophilus (Floranex) 4 tab PO QIDM [facility] Stop: 12/27/19 16:59 Last Admin: 11/28/19 12:08 Dose: 4 tab Documented by: Levothyroxine Sodium (Synthroid) 100 mcg PO DAILYBB [facility] Stop: 12/29/19 06:29 Loratadine (Claritin) 10 mg PO DAILY [facility] Stop: 12/28/19 08:59 Last Admin: 11/28/19 07:40 Dose: 10 mg Documented by: Magnesium Hydroxide (Milk Of Magnesia) 30 ml PO UD PRN PRN Reason: Constipation Stop: 12/27/19 15:58 Miscellaneous (Order Awaiting Action) 1 ea N/A QS NOHEMI Stop: 12/28/19 00:00 Last Admin: 11/28/19 07:11 Dose: Not Given Documented by: Miscellaneous (Order Awaiting Action) 1 ea N/A QS NOHEMI Stop: 12/28/19 00:00 Last Admin: 11/28/19 07:10 Dose: Not Given Documented by: Miscellaneous Information (Consult) 1 ea N/A UD PRN PRN Reason: Consult Stop: 12/27/19 15:58 Multivitamins/Minerals (Multivitamin W/ Minerals Tab) 1 tab PO DAILY NOHEMI Stop: 12/28/19 08:59 Last Admin: 11/28/19 07:40 Dose: 1 tab Documented by: Potassium Chloride (Klor-Con M20) 20 meq PO DAILY NOHEMI Stop: 12/28/19 08:59 Last Admin: 11/28/19 07:40 Dose: 20 meq Documented by: Sodium Chloride ([place] Nasal) 2 sprays NA DAILY PRN PRN Reason: allergic rhinitis Stop: 12/27/19 15:58 Tramadol HCl (Ultram) 100 mg PO TID PRN PRN Reason: Pain Stop: 12/27/19 15:58 Vitamin D (Vitamin D3) 1,000 units PO DAILY NOHEMI Stop: 12/28/19 08:59 Last Admin: 11/28/19 07:42 Dose: 1,000 units Documented by:
[2019-11-28] MEDS: ATORVASTATIN 40 MG TAB PO SCH (20:58)
[2019-11-29] MEDS: AZELASTINE: ORDER AWAITING ACTION SCH ×2 (00:38→07:18)
[2019-11-29] MEDS: RESTASIS: ORDER AWAITING ACTION SCH ×4 (00:38→23:26)
[2019-11-29] MEDS: LEVOTHYROXINE SODIUM 100 MCG TABLET PO SCH (06:03)
[2019-11-29 07:01] LABS: BUN Creatinine Ratio 26.9 (10-20); Calcium 8.6 mg/dl (8.5-10.1); Creatinine Clr Calc Pharmacy 30.1 ml/min; Est GFR (African American) 52.1; Magnesium 1.9 mg/dl (1.8-2.4); Potassium 4.3 mmol/L (3.5-5.1)
[2019-11-29] MEDS: POTASSIUM CHLORIDE 20 MEQ TABCR PO SCH (09:22)
[2019-11-29] MEDS: LACTOBACILLUS ACIDOPHILUS (FLORANEX) TAB PO SCH ×4 (09:22→21:14)
[2019-11-29] MEDS: APIXABAN 2.5 MG TAB PO SCH ×2 (09:22→21:15)
[2019-11-29] MEDS: CLOPIDOGREL BISULFATE 75 MG TAB PO SCH (09:22)
[2019-11-29] MEDS: ASCORBIC ACID 500 MG TAB PO SCH ×2 (09:22→21:14)
[2019-11-29] MEDS: FERROUS SULFATE 325 MG TAB PO SCH ×2 (09:22→18:11)
[2019-11-29] MEDS: OMEGA-3 (PURIFIED FISH OIL) 1 GM CAP PO SCH (09:23)
[2019-11-29] MEDS: DOCUSATE SODIUM 100 MG CAP PO SCH ×2 (09:23→21:26)
[2019-11-29] MEDS: CEROVITE ADV FORMULA TAB PO SCH (09:23)
[2019-11-29] MEDS: LORATADINE 10 MG TAB PO SCH (09:23)
[2019-11-29] MEDS: FAMOTIDINE 20 MG TAB PO SCH (09:23)
[2019-11-29] MEDS: CHOLECALCIFEROL 1,000 UNITS 25 MCG TAB PO SCH (09:24)
[2019-11-29] MEDS: ATENOLOL 50 MG TABLET PO SCH ×2 (09:24→21:14)
--- NOTE | 2019-11-29 10:56 | Infectious Disease Progress Nt ---
Date of Service November 29, 2019 Assessment & Plan (1) Osteomyelitis of great toe of right foot: pt can continue on current abx, cultures negative to date, supsect will remain negative. surgery likely curative, await family/patient decision regarding this. Subjective pt remains on emperic abx, tolerating well. afebrile. s/p ortho eval considering tma vs bka, family to decide. no am labs. blood cultures negative, superficial wound culture growing skin soraya only. Results & Data Vital Signs (Past 12 Hours) Vital Signs Temp Pulse Resp BP Pulse Ox 11/29/19 07:41 36.5 C 81 18 138/70 92 11/28/19 23:09 37.1 C 80 16 130/76 92 Laboratory Results Microbiology 11/27/19 10:55 Blood Aerobic Blood Culture - Preliminary No growth in Aerobic bottle after 24 hours. 11/27/19 10:55 Blood Anaerobic Blood Culture - Final 11/27/19 11:00 Blood Aerobic Blood Culture - Preliminary No growth in Aerobic bottle after 24 hours. 11/27/19 11:00 Blood Anaerobic Blood Culture - Preliminary No growth in Anaerobic bottle after 24 hours. PG Care Time/CCT Total # of Minutes Spent Total Time Spent with Patient: Total time spent is greater than 50% in coordination of care (as documented) at patient's floor/unit and/or counseling patient:
[2019-11-29] MEDS: cefTRIAXone SODIUM 2,000 MG in DEXTROSE 5% 50 ML IV SCH (12:29)
[2019-11-29] MEDS: VANCOMYCIN HCL 1,000 MG in SODIUM CHLORIDE 0.9% 250 ML IV SCH ×2 (13:05→14:22)
[2019-11-29] MEDS ORDERED: VANCOMYCIN TROUGH ONE (13:30)
--- NOTE | 2019-11-29 14:10 | Consultation Report ---
DATE OF CONSULTATION: 11/29/2019 HISTORY OF PRESENT ILLNESS: The patient is an 89-year-old white female who I have been asked to evaluate regarding necrosis of her right second, third, fourth and fifth toes that developed progressively here after the first of the year. She has had a longstanding necrosis of her right great toe, but it progressed with some cellulitis involving upper ankle, just above her ankle. She has no other particular complaints today. I have also spoken with her daughter who is at bedside. Her clinical examination consists that of a necrosis first, second, third, fourth, fifth toes. She is in the process of having a vascular workup which will be necessary for determining level of amputation. Recommend referral to Vascular for amputation either transmetatarsal or below knee pending Vascular findings, we will follow as needed. ASSESSMENT: Necrotic great second, third, fourth and fifth toes. PLAN: For vascular evaluation and definitive management. VALDEZ
--- NOTE | 2019-11-29 14:34 | Ultrasound Report ---
ULTRASOUND ANKLE-BRACHIAL INDICES CLINICAL HISTORY: Peripheral vascular disease. FINDINGS: Ankle brachial indices were calculated on ultrasound. Right brachial pressure measures 158 and left brachial pressure measures 144. Pressures in the right posterior tibial artery measure 62 fo r an BJ of 0.39, and pressures in the right dorsalis pedis artery measure 72 for an BJ of 0.46. Pre ssures in the left posterior tibial artery measure 151 for an BJ of 0.96, and pressures in the left dorsalis pedis measure 164 for an BJ of 1.04. IMPRESSION: Ankle-brachial indices as above. Dictated: 11/29/2019 2:05 PM Transcribed: 11/29/2019 2:18 PM Rosa Maria [id number] [facility] Electronically signed by: Bryan Borges M.D. 11/29/2019 2:33 PM
--- NOTE | 2019-11-29 15:09 | Hospitalist Progress Note ---
Date of Service November 29, 2019 Assessment & Plan (1) Cellulitis: - Right lower extremity cellulitis in setting of chronic osteomyelitis; failed outpatient treatment with Doxycycline. - Wound culture +gram negative bacilli; Blood cultures negative to date. - ID following, appreciate input. - Continue Ceftriaxone and Vancomycin for empiric coverage. (2) Osteomyelitis of great toe of right foot: - Follows with ortho; osteomyelitis appears stable on XR, unchanged from 11/08/19. - Consulted [facility] (follows as outpt) -- recommend possible transmetatarsal amputation vs. below knee amputation. - Family requested second opinion in regards to ortho intervention -- consulted [facility], appreciate input. - ABIs completed to determine vascular status -- BJ 0.39 right posterior tibial artery and 0.46 right dorsalis pedis artery. Arterial duplex is pending. - Consulted Dr. Lopez with vascular surgery (follows as outpt) - may require BKA with vascular surgery vs. orthopedic group. - Continue Ceftriaxone/Vanco as noted above. (3) Peripheral arterial disease: - Follows with Dr. Lopez; BJ results as noted above. - Arterial duplex of RLE is pending. - Continue statin, plavix as prescribed. (4) A-fib: - Currently in A. fib/flutter, rate controlled on exam. - Continue Atenolol 50 mg BID and Eliquis 2.5 mg BID. (5) TIA (transient ischemic attack): - H/o; continue statin and Plavix as prescribed. (6) HTN (hypertension): - Continue Atenolol as prescribed. (7) DVT (deep venous thrombosis): - H/o; continue renally dosed Eliquis. (8) CKD (chronic kidney disease), stage III: - Creatinine is currently at baseline, will monitor. (9) Hypothyroidism: - TSH is 19.9;increased to 100 mcg daily. - Repeat TFTs in 3-4 weeks. (10) Dementia: - Re-orient frequently; no evidence of acute hospital delirium at this time. (11) Central sleep apnea: - Noted cyclical apneic breathing during exam. Her daughter reports this breathing pattern is chronic for the patient. - Continue to monitor respiratory status closely. Dispo: Med/surg for treatment of cellulitis/osteomyelitis. Ortho,vascular surgery and ID following. Supervising Physician Co-Signing Physician Notes Attending Attestation: Chart reviewed in detail, care plan d/w PA Marcelina Prater. I agree w/ the jacome components of her documentation. 89yo female with PAD, osteomyelitis of right foot, dementia and numerous other comorbidities. Now w/ superimposed right foot cellulitis. Agree w/ Ms MargaritoSamuelenoc's recommendations/management. Appreciate ortho and vascular/cardiology consults. Await 2nd opinion for right foot. Nicolas Dowell MD Subjective Pt. reports breathing is stable today. She had a mild productive cough this morning. C/o pain in right foot/leg -- redness and swelling noted on exam. Her daughter was present at bedside -- she requested a second opinion regarding surgery with orthopedics. Review of Systems Review of Systems: All systems reviewed & are unremarkable except as noted in HPI & below Constitutional: + fatigue and + weakness; no fever and no chills Respiratory: + cough and + sputum production; no dyspnea and no dyspnea on exertion Cardiovascular: + edema; no chest pain Gastrointestinal: no abdominal pain, no nausea and no constipation Genitourinary: no difficulty urinating Musculoskeletal: no back pain and no joint pain Integumentary: + non-healing lesions, + skin ulcer and + erythema Physical Exam Physical Exam: General: Resting comfortably, daughter present at bedside. HEENT: NC/AT; PERRLA with EOMI; [place] conjunctiva, MMM. No erythema of posterior pharynx Neck: Supple and nontender Cardiac: RRR Lungs: CTA bilaterally Abdomen: Bowel normoactive X 4; Nontender to palpation Extremities: Edema of RLE noted. Barely palpable pulse right dorsalis pedis, adequate pulse left dorsalis pedis. Posterior tibial pulses palpable bilaterally. Neuro: No focal weakness. Skin: Erythema noted on RLE from mid calf to foot. Ulcerations noted over right toes. Results & Data Vital Signs (Past 12 Hours) Vital Signs Temp Pulse Resp BP Pulse Ox 11/29/19 07:41 36.5 C 81 18 138/70 92 Laboratory Results 11/29/19 11/29/19 Range/Units 13:20 06:09 Sodium 142 (136-145) mmol/L Potassium 4.3 (3.5-5.1) mmol/L Chloride 116 H (98-107) mmol/L Carbon Dioxide 20 L (21-32) mmol/L Anion Gap 6.0 (3-11) BUN 29 H (7-18) mg/dl Creatinine 1.09 (0.6-1.2) mg/dl Est Cr Clr Drug Dosing 30.1 ml/min Est GFR ( Amer) 52.1 Est GFR (Non-Af Amer) 45.0 BUN/Creatinine Ratio 26.9 H (10-20) Glucose 95 (70-99) mg/dl Calcium 8.6 (8.5-10.1) mg/dl Magnesium 1.9 (1.8-2.4) mg/dl Vancomycin Trough Pending PG Care Time/CCT Total # of Minutes Spent Total Time Spent with Patient: Total time spent is greater than 50% in coordination of care (as documented) at patient's floor/unit and/or counseling patient: (1) A-fib Atrial fibrillation type: longstanding persistent Qualified Code(s): I48.11 - Longstanding persistent atrial fibrillation (2) Cellulitis Site of cellulitis: unspecified site Qualified Code(s): L03.90 - Cellulitis, unspecified (3) Hypothyroidism Hypothyroidism type: unspecified Qualified Code(s): E03.9 - Hypothyroidism, unspecified
--- NOTE | 2019-11-29 15:22 | Pharmacy Report ---
Pharmacy Abx Dose Short Note - Date of Service November 29, 2019 - Assessment & Plan Assessment 89 year old F receiving vancomycin and Rocephin for treatment of osteomyelitis of great toe. Day # 3 of antimicrobial therapy. Blood cultures negative SCr remains stable Plan Vancomycin * Trough level of 14.9 mcg/mL is therapeutic (although at low end of therapeutic range). Level not at steady state so expect to increase; however, goal trough at least 15 with osteomyelitis. * Continue dose of 1000 mg IV every 24 hours * Goal trough level : 15 to 20 mcg/mL * Repeat trough level ordered for: 11/30/19 Pharmacy will continue to follow and will adjust dose/frequency as necessary. Thank you.
--- NOTE | 2019-11-29 16:31 | Ultrasound Report ---
Study: Arterial Doppler of the right HISTORY: Peripheral vascular disease. Pain. Edema. FINDINGS: Demonstrate compromised cerebrovascular flow characteristics of the arterial structures fro m the mid thigh through the small vessel lower leg. All velocity characteristics appear to be somewha t diminished overall, with appearance suggesting probable inflow disease. Waveforms appear to be monophasic primarily with a small component of biphasic flow. IMPRESSION: Findings consistent with a combination of significant inflow disease as well as multifoca l arteriosclerotic/atheroocclusive change throughout the arterial structures of the thigh and lower l eg. Electronically signed by: Rick Rivas M.D. 11/29/2019 4:30 PM
[2019-11-29] MEDS: ATORVASTATIN 40 MG TAB PO SCH (21:14)
[2019-11-30] MEDS: LEVOTHYROXINE SODIUM 100 MCG TABLET PO SCH (05:54)
[2019-11-30] MEDS: RESTASIS: ORDER AWAITING ACTION SCH ×3 (07:15→23:22)
[2019-11-30 07:24] LABS: Hematocrit (blood only) 35.4 % (37-47); Hemoglobin 11.5 g/dL (12.0-16.0); Mean Corpuscular Hemoglobin 30.2 pg (25-34); Mean Corpuscular Hgb Conc 32.5 g/dL (32-36); Mean Corpuscular Volume 92.9 fL (80-100); Mean Platelet Volume 9.9 fL (7.4-10.4); Platelet Count 184 K/uL (130-400); RDW Coefficient of Variation 19.2 % (11.5-14.5); RDW Standard Deviation 63.3 fL (36.4-46.3); Red Blood Count 3.81 M/uL (4.2-5.4); White Blood Count 6.42 K/uL (4.8-10.8)
[2019-11-30 08:00] LABS: BUN Creatinine Ratio 19.7 (10-20); Calcium 8.6 mg/dl (8.5-10.1); Creatinine Clr Calc Pharmacy 27.6 ml/min; Est GFR (African American) 46.9; Est GFR (Non-African American) 40.4; Potassium 4.4 mmol/L (3.5-5.1)
--- NOTE | 2019-11-30 09:27 | Pharmacy Report ---
Pharmacy Abx Dose Short Note - Date of Service November 30, 2019 - Assessment & Plan Assessment 89 year old F receiving vancomycin and Rocephin for treatment of osteomyelitis of R toe Day # 4 of antimicrobial therapy. SCr has increased slightly from 1.09 -> 1.19 Plan Vancomycin * Since trough level yesterday prior to steady state was near therapeutic range and now SCr has slightly increased, will decrease dose to prevent supratherapeutic trough levels * Change to 750 mg IV every 24 hours * Goal trough level : 15 to 20 mcg/mL * Change trough level to 12/02/19 prior to the 3rd dose of new regimen Pharmacy will continue to follow and will adjust dose/frequency as necessary. Thank you.
[2019-11-30] MEDS: FERROUS SULFATE 325 MG TAB PO SCH ×2 (09:30→18:06)
[2019-11-30] MEDS: POTASSIUM CHLORIDE 20 MEQ TABCR PO SCH (09:30)
[2019-11-30] MEDS: APIXABAN 2.5 MG TAB PO SCH ×2 (09:30→21:21)
[2019-11-30] MEDS: ASCORBIC ACID 500 MG TAB PO SCH ×2 (09:30→21:20)
[2019-11-30] MEDS: CHOLECALCIFEROL 1,000 UNITS 25 MCG TAB PO SCH (09:31)
[2019-11-30] MEDS: DOCUSATE SODIUM 100 MG CAP PO SCH ×2 (09:33→21:21)
[2019-11-30] MEDS: CEROVITE ADV FORMULA TAB PO SCH (09:33)
[2019-11-30] MEDS: ATENOLOL 50 MG TABLET PO SCH ×2 (09:33→21:20)
[2019-11-30] MEDS: CLOPIDOGREL BISULFATE 75 MG TAB PO SCH (09:33)
[2019-11-30] MEDS: LACTOBACILLUS ACIDOPHILUS (FLORANEX) TAB PO SCH ×4 (09:33→21:21)
[2019-11-30] MEDS: LORATADINE 10 MG TAB PO SCH (09:33)
[2019-11-30] MEDS: FAMOTIDINE 20 MG TAB PO SCH (09:34)
[2019-11-30] MEDS: OMEGA-3 (PURIFIED FISH OIL) 1 GM CAP PO SCH (09:34)
--- NOTE | 2019-11-30 10:26 | Cardiology Consultation ---
Date of Consultation November 30, 2019 Assessment & Plan (1) Peripheral arterial disease: --post LINE UP EXAMINER to right popliteal/TPT 06/2017 2. Right foot wounds/osteomyelitis 3. Parkinson's disease 4. Atrial fibrillation and sick sinus syndrome post pacemaker Patient with known history of peripheral arterial disease and chronic osteomyelitis of her right great toe admitted in the setting of progressive right foot wounds. Noninvasive vascular testing suggestive of recurrent popliteal/TPT disease and tibial disease. Orthopedics is recommending amputation. At this point we feel there would be low benefit of revascularization. From a vascular standpoint OK to proceed with whichever amputation orthopedics feels is most appropriate. There is some concern about wound healing with a transmetatarsal amputation given her tibial disease. History of Present Illness Reason for Consultation: PAD Attending Physician: Nicolas Dowell History of Present Illness Mrs. Victor is a very pleasant 89 year old female with Parkinson's disease, hypertension, CKD, paroxysmal atrial fibrillation and sick sinus syndrome post dual chamber pacemaker, peripheral arterial disease post LINE UP EXAMINER of right popliteal/tibioperoneal trunk in the setting right great toe ulceration/osteomyelitis. She is well know to us. She is being seen for vascular evaluation prior to possible amputation. She has a history of chronic right great toe osteomyelitis. She lives at [facility] and nonambulatory. Patient's daughter reports that over the past several weeks there has been deterioration of her great toe wound and new wound involving digits 2-4. Her leg also became swollen and red. She was seen at the wound clinic on 11/27/2019 and was referred to the emergency department. She is on IV antibiotics per infectious disease. Toe wound culture positive for pseudomonas aeruginosa. Blood cultures negative. She was seen by orthopedics who is recommending amputation (transmetatarsal vs BKA). Right lower extremity arterial duplex reviewed with Dr. Lopez and shows likely restenosis of popliteal/tibioperoneal trunk and significant tibial disease. Patient reports improvement in the erythema and swelling of her right lower extremity. Some soreness of her great toe but no significant pain. Prior vascular history: In 06/2017 she was admitted to [facility] with right lower extremity erythema and bleeding distal ulceration. Arterial duplex revealed moderate to severe arterial insufficiency with an BJ of 0.46. MRI was suggestive of focal osteomy elitis of the distal tip of her right great toe. LINE UP EXAMINER done via antegrade right BASE FILLER access with 4.0 chocolate balloon with postprocedure improved distal perfusion. Cultures grew out Pseudomonas treated initially with IV imipenem before oral course of levofloxacin followed by Dr. Bailon. She has continued to follow up with the wound clinic with slow, progressing wound healing. No further orthopedic intervention thought necessary per Dr. Bae. She was seen in our office in September and wounds were stable at that time. Allergies Allergy/AdvReac Type Severity Reaction Status Date / Time amoxicillin Allergy Mild RASH Verified 11/27/19 11:43 Home Medications Home Medications Medication Instructions Recorded Confirmed Type acetaminophen 325 mg capsule 650 mg PO Q6H PRN cap 07/11/18 11/27/19 History clopidogrel 75 mg tablet 75 mg PO QAM tab 07/11/18 11/27/19 History cyanocobalamin (vitamin B-12) 1,000 mcg IM UD ea 07/11/18 11/27/19 History 1,000 mcg/mL injection kit ferrous sulfate 325 mg (65 mg 325 mg PO BID tab 07/11/18 11/27/19 History iron) tablet loratadine 10 mg tablet 10 mg PO DAILY 07/11/18 11/27/19 History omega 7-uno-ioc-fish oil 100 1 cap PO DAILY cap 07/11/18 11/27/19 History mg-160 mg-1,000 mg capsule levothyroxine 88 mcg capsule 88 mcg PO QAM 07/20/18 11/27/19 History Eliquis 2.5 mg PO BID 06/21/19 11/27/19 History ascorbic acid (vitamin C) [Vitamin 250 mg PO BID 06/21/19 11/27/19 History C] azelastine 1 spray INTRANASAL BID 06/21/19 11/27/19 History cholecalciferol (vitamin D3) 1,000 unit PO DAILY 06/21/19 11/27/19 History [Vitamin D3] magnesium hydroxide [Milk of 30 ml PO DIRECTED PRN 06/21/19 11/27/19 History Magnesia] sodium chloride [Saline Nasal] 2 spray INTRANASAL DAILY PRN 06/21/19 11/27/19 History Lactobacillus acidoph-L.bulgar 4 tab PO QIDM #0 tab 06/26/19 11/27/19 Rx [Floranex] atenolol 50 mg PO BID #60 tab 06/26/19 11/27/19 Rx multivitamin with iron-mineral 1 tab PO DAILY 11/07/19 11/27/19 History docusate sodium 100 mg PO BID #60 cap 11/10/19 11/27/19 Rx doxycycline hyclate 100 mg PO BID 21 Days #42 cap 11/10/19 11/27/19 Rx atorvastatin 40 mg PO PM 11/27/19 11/27/19 History cyclosporine 1 drp OPHTHALMIC (EYE) Q12H 11/27/19 11/27/19 History famotidine 20 mg PO BID 11/27/19 11/27/19 History potassium chloride 20 meq PO DAILY 11/27/19 11/27/19 History tramadol 100 mg PO TID PRN 11/27/19 11/27/19 History Patient History Medical History A-fib [facility] in [facility] (Chronic) Chronic kidney disease (Chronic) Chronic osteomyelitis (Chronic) DVT (deep venous thrombosis) (Chronic) Dyslipidemia (Chronic) E. coli septicemia Encounter for colonoscopy due to history of adenomatous colonic polyps (Chronic) Exploratory laparotomy scar (Chronic) Gram-negative bacteremia (Acute) HTN (hypertension) (Chronic) Hypothyroid (Chronic) Metabolic encephalopathy Osteoporosis (Chronic) Pacemaker Parkinson disease (Chronic) Peripheral arterial disease (Chronic) Sepsis (Acute) Sick sinus syndrome TIA (transient ischemic attack) (Chronic) UTI (urinary tract infection) (Acute) Surgical History History of tonsillectomy and adenoidectomy (Chronic) Hx of cardiac pacemaker Family History Other No pertinent family history Social History Preferred Language: Montenegrin Communication Ability: Impaired Equipment Services Associate Required: No Beliefs That Will Affect Care: None marital status: / Current Living Situation: Jail Current Living Situation Comment: [facility] Feels Safe at Home: Yes Smoking Status: Never smoker Second Hand Exposure: No ; Hx Alcohol Use: No Hx Substance Use: No Review of Systems Review of Systems: All systems reviewed & are unremarkable except as noted in HPI & below Physical Exam Physical Exam: General: No acute distress, comfortable. HEENT: Sclerae anicteric. Neck: Mildly elevated JVD Lungs: Decreased breath sounds at the bases. No rales, rhonchi or wheezes. Cardiac: Regular rate and rhythm. S1-S2 normal. No appreciable murmur, gallop or rub. Extremities/vascular: -- 1+ RLE edema, erythema to mid kim -- Diminished right radial pulse -- Femoral, popliteal pulses 1+ bilaterally --DP/PT nonpalpable on the right --Sluggish capillary refill RLE --Ulcerations of digits 1-4 with ischemic changes, drainage and periwound inflammation Results & Data Vital Signs (Past 12 Hours) Vital Signs Temp Pulse Pulse Resp BP Pulse Ox 11/30/19 07:13 36.3 C L 82 16 154/78 H 93 11/29/19 23:50 36.8 C 77 18 146/85 H 95 Laboratory Results Laboratory Results - last 24 hr 11/29/19 11/30/19 11/30/19 13:20 07:07 07:07 WBC 6.42 RBC 3.81 L Hgb 11.5 L Hct 35.4 L MCV 92.9 MCH 30.2 MCHC 32.5 RDW Std Deviation 63.3 H RDW Coeff of Stephani 19.2 H Plt Count 184 MPV 9.9 Sodium 142 Potassium 4.4 Chloride 115 H Carbon Dioxide 22 Anion Gap 5.0 BUN 24 H Creatinine 1.19 Est Cr Clr Drug Dosing 27.6 Est GFR ( Amer) 46.9 Est GFR (Non-Af Amer) 40.4 BUN/Creatinine Ratio 19.7 Glucose 106 H Calcium 8.6 Vancomycin Trough 14.9 PG Care Time/CCT Total # of Minutes Spent Total Time Spent with Patient: Total time spent is greater than 50% in coordination of care (as documented) at patient's floor/unit and/or counseling patient:
--- NOTE | 2019-11-30 10:45 | Infectious Disease Progress Nt ---
Date of Service November 30, 2019 Assessment & Plan (1) Osteomyelitis of great toe of right foot: pt can continue on current abx, cultures now growing GNR. occlusive disease noted, abx not likely to be of significant benefit, surgery likely curative, await family/patient decision regarding this. Subjective pt s/p ortho eval and arterial studies showing occlusive disease. blood cultures negative, wound culture growing GNR, final pending. remains on vanco and ctx, tolerating well. afrebrile. Results & Data Vital Signs (Past 12 Hours) Vital Signs Temp Pulse Pulse Resp BP Pulse Ox 11/30/19 07:13 36.3 C L 82 16 154/78 H 93 11/29/19 23:50 36.8 C 77 18 146/85 H 95 Laboratory Results Microbiology 11/27/19 11:00 Blood Aerobic Blood Culture - Preliminary No growth in Aerobic bottle after 48 hours. 11/27/19 11:00 Blood Anaerobic Blood Culture - Preliminary No growth in Anaerobic bottle after 48 hours. 11/27/19 10:55 Blood Aerobic Blood Culture - Preliminary No growth in Aerobic bottle after 48 hours. 11/27/19 10:55 Blood Anaerobic Blood Culture - Final PG Care Time/CCT Total # of Minutes Spent Total Time Spent with Patient: Total time spent is greater than 50% in coordination of care (as documented) at patient's floor/unit and/or counseling patient:
[2019-11-30] MEDS: cefTRIAXone SODIUM 2,000 MG in DEXTROSE 5% 50 ML IV SCH (12:08)
--- NOTE | 2019-11-30 13:17 | XRay Report ---
XR chest 1V portable CLINICAL HISTORY: Shortness of breath COMPARISON STUDY: 11/07/2019 FINDINGS: The heart is enlarged. There is a left subclavian dual-chamber central venous pacemaker. Th ere is an air-containing retrocardiac opacity consistent with a hiatal hernia. There is radiographic evidence of congestive heart failure/fluid overload. There are bilateral pleural effusions. There are associated basilar opacities likely atelectatic although superimposed inflammatory process cannot be excluded. There are advanced arthritic changes present within the shoulders.[ IMPRESSION: Congestive heart failure pattern with cardiomegaly, pulmonary vascular congestion, bilate ral pleural effusions, and associated basilar airspace opacities. A superimposed infectious process c annot be excluded particularly at the right lung base. Clinical correlation is advocated. ACT 112: Negative or not required by law. Electronically signed by: Get Santizo M.D. 11/30/2019 1:16 PM
[2019-11-30] MEDS ORDERED: VANCOMYCIN TROUGH ONE (13:30)
[2019-11-30] MEDS ORDERED: VANCOMYCIN HCL 750 MG in SODIUM CHLORIDE 0.9% 250 ML IV SCH (14:00)
[2019-11-30] MEDS ORDERED: FUROSEMIDE 40 MG in SYRINGE 0 ML IV ONE (16:30)
[2019-11-30] MEDS: CEFEPIME 2,000 MG in SYRINGE 7.5 ML IV SCH (17:53)
--- NOTE | 2019-11-30 18:41 | Hospitalist Progress Note ---
Date of Service November 30, 2019 Assessment & Plan (1) Cellulitis: - Right lower extremity cellulitis in setting of chronic osteomyelitis; failed outpatient treatment with Doxycycline. - Wound culture with pseudomonas - will convert to Cefepime and D/C further Rocephin/Vanc; Blood cultures negative to date. - ID following, appreciate input - will need to discuss with ID given new culture finding however cellulitis appears to be reducing (2) Osteomyelitis of great toe of right foot: - Follows with ortho; osteomyelitis appears stable on XR, unchanged from 11/08/19. - Consulted [facility] (follows as outpt) -- recommend possible t ransmetatarsal amputation vs. below knee amputation. - Family requested second opinion in regards to ortho intervention -- consulted [facility], appreciate input. - discussed with [facility] today - consideration for MRI (if pacer compatible) to further assess level of osteo - ABIs completed to determine vascular status -- BJ 0.39 right posterior tibial artery and 0.46 right dorsalis pedis artery. Arterial duplex is pending. - Consulted Dr. Lopez with vascular surgery (follows as outpt) - may require BKA with vascular surgery vs. orthopedic group - no benefit from stenting/revascularization and ultimate surgical intervention necessary with likely BKA given level of vascular compromise - Converted to Cefepime given P. aeruginosa on Cx (3) Peripheral arterial disease: - Follows with Dr. Lopez; BJ results as noted above. - Continue statin, plavix as prescribed. (4) A-fib: - Rate controlled - Continue Atenolol 50 mg BID and Eliquis 2.5 mg BID. (5) TIA (transient ischemic attack): - H/o; continue statin and Plavix as prescribed. (6) HTN (hypertension): - Continue Atenolol as prescribed. (7) DVT (deep venous thrombosis): - H/o; continue renally dosed Eliquis. - Per note from [facility] - appears possibly LUE DVT in 2017 - currently has increased swelling in this extremity - no pain, warmth, erythema - is on AC so unlikely DVT but may need to assess with U/S -- May be dependent edema from tendency to lean on this side? (8) CKD (chronic kidney disease), stage III: - Creatinine is currently at baseline, will monitor. (9) Hypothyroidism: - TSH is 19.9; increased to 100 mcg daily. - Repeat TFTs in 3-4 weeks - given infection this could be reactive finding? (10) Dementia: - Re-orient frequently; no evidence of acute hospital delirium at this time. (11) Central sleep apnea: - Noted cyclical apneic breathing during exam. Her daughter reports this breathing pattern is chronic for the patient. - Did obtain CXR which does show congestive findings with B/L pleural effusions and likely superimposed atelectasis. No leukocytosis or fever to suggest acute pneumonia but Abx were used that would dual cover while on Rocephin/Vanc -- Daughter believes patient has been on diuretics but thinks this may have been stopped due to admission in Dec due to dehydration and will need to further chart check - Lasix 40 mg IV x 1 dose and monitor response - will monitor labs closely and BP Dispo: Med/surg for treatment of cellulitis/osteomyelitis. Daughters leaning towards possible conservative measures currently and allow Abx to give some effect. Did discuss unfortunately the necrotic tissue will then still be present putting her at risk for ongoing infection. Did discuss with orthopedics and possibly can monitor over next week but will have to be mindful of infection risk and plan for consideration for surgery at a later time. Will discuss with daughters again and if conservative measures planned, ensure close F/U and monitoring Supervising Physician Co-Signing Physician Notes Attending Attestation: Chart reviewed in detail, care plan d/w BRYANNA Weller. I agree w/ the jacome components of her documentation. 89yo female with PAD, osteomyelitis of right foot, dementia, decompensated hypothyroidism, and numerous other comorbidities. Now w/ superimposed right foot cellulitis. Right great toe Cx w/ pseudomonas. Agree w/ change to IV cefepime. Appreciate ortho and vascular/cardiology consults. Family leaning towards conservative Rx for right foot. Vitals/labs acceptable. Nicolas Dowell MD Subjective Reports feeling well today. Has no pain in the RLE. Has developed worsening LUE swelling and curently on Eliquis. No IV sites in this arm but tends to lean on that side and may be an element of dependent edema. Per record review it appears she did have DVT in 2017 in the LUE. Discussed with monse at bedside about consideration for conservative management and monitoring instead of surgery at this point. Discussed with [facility] as well. Review of Systems Constitutional: no fever and no chills Respiratory: + cough; no dyspnea Cardiovascular: + edema; no chest pain Gastrointestinal: no abdominal pain, no nausea, no vomiting, no constipation and no diarrhea/loose stools Genitourinary: no dysuria Integumentary: + non-healing lesions and + wounds; no rash Physical Exam Constitutional: well developed and well nourished; no acute distress and not ill appearing Eyes: + anicteric sclerae Neck: trachea midline Respiratory: normal respiratory effort and + cough; not tachypneic Auscultation: + diminished lung sounds and + crackles Cardiovascular: Rate/Rhythm: regular rate and regular rhythm Gastrointestinal (Abdomen): Inspection/Auscultation: normal bowel sounds Percussion/Palpation: abdomen nontender and + abdomen not soft Musculoskeletal: LUE with diffuse edema - more prevalent in the forearm region with good pulses/cap refill immediate; no erythema or warmth to palp; no tenderness to palp Skin: Erythema noted to low kim and dorsal R foot; multiple toes with ulcerations and blackened tips Psychiatric: Orientation: alert and oriented to person Results & Data Vital Signs (Past 12 Hours) Vital Signs Temp Pulse Pulse Resp BP Pulse Ox 11/30/19 15:54 36.2 C L 73 18 129/72 96 11/30/19 07:13 36.3 C L 82 16 154/78 H 93 PG Care Time/CCT Total # of Minutes Spent Total Time Spent with Patient: Total time spent is greater than 50% in c oordination of care (as documented) at patient's floor/unit and/or counseling patient: (1) A-fib Atrial fibrillation type: longstanding persistent Qualified Code(s): I48.11 - Longstanding persistent atrial fibrillation (2) Cellulitis Site of cellulitis: unspecified site Qualified Code(s): L03.90 - Cellulitis, unspecified (3) Hypothyroidism Hypothyroidism type: unspecified Qualified Code(s): E03.9 - Hypothyroidism, unspecified
[2019-11-30] MEDS: ATORVASTATIN 40 MG TAB PO SCH (21:21)
[2019-12-01] MEDS: LEVOTHYROXINE SODIUM 100 MCG TABLET PO SCH (05:22)
[2019-12-01 07:31] LABS: Creatinine Clr Calc Pharmacy 28.3 ml/min; Est GFR (African American) 48.3; Est GFR (Non-African American) 41.7
[2019-12-01] MEDS: POTASSIUM CHLORIDE 20 MEQ/15 ML UDC PO SCH (08:48)
[2019-12-01] MEDS: LACTOBACILLUS ACIDOPHILUS (FLORANEX) TAB PO SCH ×4 (08:51→20:04)
[2019-12-01] MEDS: APIXABAN 2.5 MG TAB PO SCH ×2 (08:51→20:04)
[2019-12-01] MEDS: CEROVITE ADV FORMULA TAB PO SCH (08:51)
[2019-12-01] MEDS: LORATADINE 10 MG TAB PO SCH (08:52)
[2019-12-01] MEDS: OMEGA-3 (PURIFIED FISH OIL) 1 GM CAP PO SCH (08:52)
[2019-12-01] MEDS: RESTASIS: ORDER AWAITING ACTION SCH ×2 (08:52→17:06)
[2019-12-01] MEDS: CLOPIDOGREL BISULFATE 75 MG TAB PO SCH (08:53)
[2019-12-01] MEDS: CHOLECALCIFEROL 1,000 UNITS 25 MCG TAB PO SCH (08:53)
[2019-12-01] MEDS: FERROUS SULFATE 325 MG TAB PO SCH ×2 (08:53→17:09)
[2019-12-01] MEDS: ASCORBIC ACID 500 MG TAB PO SCH ×2 (08:53→20:05)
[2019-12-01] MEDS: ATENOLOL 50 MG TABLET PO SCH ×2 (08:55→20:05)
[2019-12-01] MEDS: FAMOTIDINE 20 MG TAB PO SCH (09:44)
[2019-12-01] MEDS: DOCUSATE SODIUM 100 MG CAP PO SCH ×2 (09:44→20:05)
--- NOTE | 2019-12-01 09:58 | Cardiology Progress Note ---
Date of Service December 01, 2019 Assessment & Plan (1) Peripheral arterial disease: --post [employer] to right popliteal/TPT 06/2017 2. Right foot wounds/osteomyelitis 3. Parkinson's disease 4. Atrial fibrillation and sick sinus syndrome post pacemaker From vascular standpoint low benefit to revascularization. Family declines amputation at this time. Continue to follow with ortho. If amputation is pursued in the future, from vascular standpoint OK to proceed with whichever amputation orthopedics feels is most appropriate. There is some concern about wound healing with a transmetatarsal amputation given her tibial disease. Subjective Patient has no new concerns today. She is resting comfortably in bed. No significant foot pain. Her daughter is present and reports they do not wish her to undergo amputation at this time. Review of Systems Review of Systems: All systems reviewed & are unremarkable except as noted in HPI & below Physical Exam Physical Exam: General: No acute distress, comfortable. HEENT: Sclerae anicteric. Neck: Mildly elevated JVD Lungs: Decreased breath sounds at the bases. No rales, rhonchi or wheezes. Cardiac: Regular rate and rhythm. S1-S2 normal. No appreciable murmur, gallop or rub. Extremities/vascular: -- 1+ RLE edema, erythema to mid kim -- Diminished right radial pulse -- Femoral, popliteal pulses 1+ bilaterally --DP/PT nonpalpable on the right --Sluggish capillary refill RLE --Ulcerations of digits 1-4 with ischemic changes, drainage and periwound inflammation Results & Data Vital Signs (Past 12 Hours) Vital Signs Temp Pulse Resp BP Pulse Ox 12/01/19 07:36 36.2 C L 63 16 135/64 97 11/30/19 22:54 36.6 C 69 20 143/67 H 92 Laboratory Results Laboratory Results - last 24 hr 12/01/19 06:28 Creatinine 1.16 Est Cr Clr Drug Dosing 28.3 Est GFR ( Amer) 48.3 Est GFR (Non-Af Amer) 41.7 PG Care Time/CCT Total # of Minutes Spent Total Time Spent with Patient: Total time spent is greater than 50% in coordination of care (as documented) at patient's floor/unit and/or counseling patient:
--- NOTE | 2019-12-01 10:11 | Infectious Disease Progress Nt ---
Date of Service December 01, 2019 Assessment & Plan (1) Osteomyelitis of great toe of right foot: pt can continue on cefepime cultures now growing pseudomonas occlusive disease noted, abx not likely to be of significant benefit, surgery likely curative, await family/patient decision regarding this. could also change to po levaquin if pt is to be d/c on abx. Subjective 11/27 wound culture growing pseudomonas, resistant to imipenem. now of cefepime, tolerated well. afebrile. blood cultures remain negative Results & Data Vital Signs (Past 12 Hours) Vital Signs Temp Pulse Resp BP Pulse Ox 12/01/19 07:36 36.2 C L 63 16 135/64 97 11/30/19 22:54 36.6 C 69 20 143/67 H 92 Laboratory Results Microbiology 11/27/19 11:00 Blood Aerobic Blood Culture - Preliminary No growth in Aerobic bottle after 48 hours. 11/27/19 11:00 Blood Anaerobic Blood Culture - Preliminary No growth in Anaerobic bottle after 48 hours. 11/27/19 10:55 Blood Aerobic Blood Culture - Preliminary No growth in Aerobic bottle after 48 hours. 11/27/19 10:55 Blood Anaerobic Blood Culture - Final PG Care Time/CCT Total # of Minutes Spent Total Time Spent with Patient: Total time spent is greater than 50% in coordination of care (as documented) at patient's floor/unit and/or counseling patient:
[2019-12-01] MEDS ORDERED: GADOBUTROL 65ML VIAL IV PRN (15:33)
--- NOTE | 2019-12-01 15:56 | Magnetic Resonance Report ---
MR foot RT wo/w con HISTORY: 89 years-old Female Osteo; Skin Necrosis follow up study in a patient with reported osteomy elitis COMPARISON: Right foot radiographs 11/27/2019 TECHNIQUE: Multiplanar multisequence MRI of the foot was obtained both with and without the use of 6. 0 mL Gadavist FINDINGS: There is markedly motion degraded with multiple sequences nondiagnostic. Erosion of the medial tuft f irst distal phalanx redemonstrated (image 23 series 7) with bone marrow edema and soft tissue ulcer. No additional definite bony erosive changes identified. No drainable fluid collection. Moderate diffu se subcutaneous and deep tissue edema of the foot. Moderate atrophy of the intrinsic musculature. Mod erate multifocal osteoarthritis. The flexor and extensor tendons are not well visualized. Midfoot ali gnment appears grossly unremarkable. Moderate edema with enhancement of the subungual tissues of the first digit. IMPRESSION: 1. Markedly motion degraded exam. 2. Ulcer of the distal first digit with bony erosion of the first distal phalanx is suspicious for os teomyelitis. 3. Diffuse subcutaneous edema suggests cellulitis. No drainable fluid collection to indicate abscess. 4. Subungual edema and enhancement of the first digit is suggestive of infectious or reactive paronyc hia. ACT 112: Negative or not required by law. The above report was generated using voice recognition software. It may contain grammatical, syntax o r spelling errors. Electronically signed by: Edwin Fajardo M.D. 12/01/2019 3:55 PM
--- NOTE | 2019-12-01 16:02 | Ultrasound Report ---
US venous doppler UE LT HISTORY: 89 years-old Female DVT R/O acute pain and swelling of the left upper extremity COMPARISON: Chest CT 11/07/2019 TECHNIQUE: Multiple real-time sonographic images of the left upper extremity deep venous structures w ere obtained assessing grayscale appearance, color and spectral flow FINDINGS: There is normal flow, compressibility and phasicity of the left upper extremity deep venous structure s. Mild subcutaneous edema of the upper extremity. The proximal subclavian vein is not well visualize d. Pacer leads of the left subclavian distribution. IMPRESSION: No sonographic evidence of deep venous thrombosis. ACT 112: Negative or not required by law. The above report was generated using voice recognition software. It may contain grammatical, syntax o r spelling errors. Electronically signed by: Edwin Fajardo M.D. 12/01/2019 4:01 PM
[2019-12-01] MEDS: CEFEPIME 2,000 MG in SYRINGE 7.5 ML IV SCH (17:05)
[2019-12-01] MEDS: ATORVASTATIN 40 MG TAB PO SCH (20:05)
--- NOTE | 2019-12-01 20:22 | Hospitalist Progress Note ---
Date of Service December 01, 2019 Assessment & Plan (1) Cellulitis: - Right lower extremity cellulitis in setting of chronic osteomyelitis; failed outpatient treatment with Doxycycline. - Wound culture with pseudomonas - will convert to Cefepime and D/C further Rocephin/Vanc; Blood cultures negative to date. - ID following, appreciate input - discussed with Dr. Bailon with plan to continue IV ABx with plan for conversion to Levaquin and will need monitoring for length of antibiotics nany until final decision on any definitive surgical management -- Discussed with daughter and patient did have some confusion while on Cipro in the past and this will need to be monitored (2) Osteomyelitis of great toe of right foot: - Follows with ortho; osteomyelitis appears stable on XR, unchanged from 11/08/19. - Consulted [facility] (follows as outpt) -- recommend possible transmetatarsal amputation vs. below knee amputation. - Family requested second opinion in regards to ortho intervention -- consulted [facility], appreciate input. - discussed with [facility] today - MRI will be reviewed to help determine what all options will be and discussion with Dr. Grijalva when he returns next week - ABIs completed to determine vascular status -- BJ 0.39 right posterior tibial artery and 0.46 right dorsalis pedis artery. - Consulted Dr. Lopez with vascular surgery (follows as outpt) - may require BKA with vascular surgery vs. orthopedic group - no benefit from stenting/revascularization and ultimate surgical intervention necessary with likely BKA given level of vascular compromise - Converted to Cefepime given P. aeruginosa on Cx - Will need off Eliquis prior to surgical intervention if decided on (3) Peripheral arterial disease: - Follows with Dr. Lopez; BJ results as noted above. - Continue statin, plavix as prescribed. (4) A-fib: - Rate controlled - Continue Atenolol 50 mg BID and Eliquis 2.5 mg BID. (5) TIA (transient ischemic attack): - H/o; continue statin and Plavix as prescribed. (6) HTN (hypertension): - Continue Atenolol as prescribed. (7) DVT (deep venous thrombosis): - H/o; continue renally dosed Eliquis. - Per note from [facility] - appears possibly LUE DVT in 2017 - currently has increased swelling in this extremity - no pain, warmth, erythema - is on AC so unlikely DVT and U/S confirms this -- May be dependent edema from tendency to lean on this side? -- May also be a combination of recent admission so possible further fluid accumulation (8) CKD (chronic kidney disease), stage III: - Creatinine is currently at baseline, will monitor. (9) Hypothyroidism: - TSH is 19.9; increased Levothyroxine to 100 mcg daily. - Repeat TFTs in 3-4 weeks - given infection this could be reactive finding? (10) Dementia: - Re-orient frequently; no evidence of acute hospital delirium at this time. (11) Central sleep apnea: - Noted cyclical apneic breathing during exam. Her daughter reports this breathing pattern is chronic for the patient. - Did obtain CXR which does show congestive findings with B/L pleural effusions and likely superimposed atelectasis. No leukocytosis or fever to suggest acute pneumonia but Abx were used that would dual cover while on Rocephin/Vanc -- Daughter believes patient has been on diuretics but thinks this may have been stopped due to admission in Dec due to dehydration and will need to further chart check - Lasix 40 mg IV x 1 dose and monitor - did have good output and likely try additional dosing tomorrow - some inaccuracies with output due to some leaking with purewick catheter Dispo: Med/surg for treatment of cellulitis/osteomyelitis. Daughters leaning towards possible conservative measures currently and allow Abx to give some effect. Did discuss unfortunately the necrotic tissue will then still be present putting her at risk for ongoing infection/sepsis/bacteremia. Did discuss with orthopedics and possibly can monitor over next week but will have to be mindful of infection risk and plan for consideration for surgery at a later time. Will discuss with daughters again and if conservative measures planned, ensure close F/U and monitoring. Will await further input from Ortho given MRI Supervising Physician Co-Signing Physician Notes Attending Attestation: Chart reviewed in detail, care plan d/w BRYANNA Weller. I agree w/ the jacome components of her documentation. 89yo female with PAD, osteomyelitis of right great toe, dementia, decompensated hypothyroidism, and numerous other comorbidities. Has right foot cellulitis. Right great toe Cx w/ pseudomonas - on cefepime. Family leaning towards conservative Rx for right foot as opposed to amputation. Vitals/labs acceptable. MRI right foot pending. Nicolas Dowell MD Subjective Reports feeling well today. Denies any pain in the leg. Arm continues to be edematous but not bothersome to the patient. Family is still considering options but possibly taking a conservative approach to the leg. Erythema is reducing and blackening of toes are stable. Did discuss with ortho who is going to review MRI and see what the possibly options could be. Discussed with ID about using Levaquin on discharge Review of Systems Respiratory: + dyspnea; no cough Cardiovascular: + edema; no chest pain Gastrointestinal: no abdominal pain, no nausea and no vomiting Integumentary: + non-healing lesions Physical Exam 2 Constitutional: WD/WN, vitals as above no acute distress and not ill appearing Eyes: + anicteric sclerae ENMT: Ears: no hearing impairment Neck: trachea midline Respiratory: normal respiratory effort Auscultation: + diminished lung sounds Cardiovascular: Rate/Rhythm: regular rate and regular rhythm Gastrointestinal (Abdomen): Inspection/Auscultation: normal bowel sounds Percussion/Palpation: abdomen soft; abdomen nontender Musculoskeletal: LUE with swelling noted but no warmth, erythema, tenderness; RLE with mild erythema of dorsum of foot with blackened tips of toes noted currently no direct drainage Skin: no rashes, warm and dry (other than described in MS section) Neurologic: moves all extremities Psychiatric: Orientation: alert, oriented to person and oriented to place Results & Data Vital Signs (Past 12 Hours) Vital Signs Temp Pulse Resp BP Pulse Ox 12/01/19 15:57 36.2 C L 73 20 154/71 H 96 PG Care Time/CCT Total # of Minutes Spent Total Time Spent with Patient: Total time spent is greater than 50% in coordination of care (as documented) at patient's floor/unit and/or counseling patient: (1) A-fib Atrial fibrillation type: longstanding persistent Qualified Code(s): I48.11 - Longstanding persistent atrial fibrillation (2) Cellulitis Site of cellulitis: unspecified site Qualified Code(s): L03.90 - Cellulitis, unspecified (3) Hypothyroidism Hypothyroidism type: unspecified Qualified Code(s): E03.9 - Hypothyroidism, unspecified
[2019-12-02] MEDS: RESTASIS: ORDER AWAITING ACTION SCH ×4 (00:08→22:54)
[2019-12-02 05:54] LABS: Creatinine Clr Calc Pharmacy 29.3 ml/min; Est GFR (African American) 50.4; Est GFR (Non-African American) 43.5
[2019-12-02] MEDS: LEVOTHYROXINE SODIUM 100 MCG TABLET PO SCH (06:06)
[2019-12-02] MEDS: LACTOBACILLUS ACIDOPHILUS (FLORANEX) TAB PO SCH ×4 (09:00→21:15)
[2019-12-02] MEDS: CEROVITE ADV FORMULA TAB PO SCH (09:34)
[2019-12-02] MEDS: FERROUS SULFATE 325 MG TAB PO SCH ×2 (09:34→17:42)
[2019-12-02] MEDS: CLOPIDOGREL BISULFATE 75 MG TAB PO SCH (09:34)
[2019-12-02] MEDS: LORATADINE 10 MG TAB PO SCH (09:34)
[2019-12-02] MEDS: CHOLECALCIFEROL 1,000 UNITS 25 MCG TAB PO SCH (09:34)
[2019-12-02] MEDS: POTASSIUM CHLORIDE 20 MEQ/15 ML UDC PO SCH (09:35)
[2019-12-02] MEDS: ATENOLOL 50 MG TABLET PO SCH ×2 (09:35→21:14)
[2019-12-02] MEDS: DOCUSATE SODIUM 100 MG CAP PO SCH ×2 (09:36→21:18)
[2019-12-02] MEDS: OMEGA-3 (PURIFIED FISH OIL) 1 GM CAP PO SCH (09:36)
[2019-12-02] MEDS: APIXABAN 2.5 MG TAB PO SCH ×2 (09:36→21:50)
[2019-12-02] MEDS: ASCORBIC ACID 500 MG TAB PO SCH ×2 (09:38→21:50)
[2019-12-02] MEDS ORDERED: FUROSEMIDE 40 MG in SYRINGE 0 ML IV ONE (10:00)
[2019-12-02] MEDS: FAMOTIDINE 20 MG TAB PO SCH (10:27)
[2019-12-02] MEDS ORDERED: VANCOMYCIN TROUGH ONE (13:30)
[2019-12-02] MEDS: CEFEPIME 2,000 MG in SYRINGE 7.5 ML IV SCH (17:42)
--- NOTE | 2019-12-02 18:08 | Hospitalist Progress Note ---
Date of Service December 02, 2019 Assessment & Plan (1) Cellulitis: - Right lower extremity cellulitis in setting of chronic osteomyelitis; failed outpatient treatment with Doxycycline. - Wound culture with pseudomonas - will convert to Cefepime and D/C further Rocephin/Vanc; Blood cultures negative to date. - ID following, appreciate input - discussed with Dr. Bailon with plan to continue IV ABx with plan for conversion to Levaquin and will need monitoring for length of antibiotics nany until final decision on any definitive surgical management -- Discussed with daughter and patient did have some confusion while on Cipro in the past and this will need to be monitored (2) Osteomyelitis of great toe of right foot: - Follows with ortho; osteomyelitis appears stable on XR, unchanged from 11/08/19. - Consulted [facility] (follows as outpt) -- recommend possible transmetatarsal amputation vs. below knee amputation. - Family requested second opinion in regards to ortho intervention -- consulted [facility], appreciate input. - discussed with [facility] today - MRI will be reviewed to help determine what all options will be and discussion with Dr. Grijalva when he returns next week - ABIs completed to determine vascular status -- BJ 0.39 right posterior tibial artery and 0.46 right dorsalis pedis artery. - Consulted Dr. Lopez with vascular surgery (follows as outpt) - may require BKA with vascular surgery vs. orthopedic group - no benefit from stenting/revascularization and ultimate surgical intervention necessary with likely BKA given level of vascular compromise - Converted to Cefepime given P. aeruginosa on Cx - Will need off Eliquis prior to surgical intervention if decided on (3) Peripheral arterial disease: - Follows with Dr. Lopez; BJ results as noted above. - Continue statin, plavix as prescribed. (4) A-fib: - Rate controlled - Continue Atenolol 50 mg BID and Eliquis 2.5 mg BID. (5) TIA (transient ischemic attack): - H/o; continue statin and Plavix as prescribed. (6) HTN (hypertension): - Continue Atenolol as prescribed. (7) DVT (deep venous thrombosis): - H/o; continue renally dosed Eliquis. - Per note from [facility] - appears possibly LUE DVT in 2017 - currently has increased swelling in this extremity which is slightly improved today on exam - no pain, warmth, erythema - is on AC so unlikely DVT and U/S confirms this -- May be dependent edema from tendency to lean on this side?; May also be a combination of recent admission so possible further fluid accumulation; Venipuncture in this arm? (8) CKD (chronic kidney disease), stage III: - Creatinine is currently at baseline, will monitor. (9) Hypothyroidism: - TSH is 19.9; increased Levothyroxine to 100 mcg daily. - Repeat TFTs in 3-4 weeks - given infection this could be reactive finding? (10) Dementia: - Re-orient frequently; no evidence of acute hospital delirium at this time. (11) Central sleep apnea: - Noted cyclical apneic breathing during exam. Her daughter reports this breathing pattern is chronic for the patient. - Did obtain CXR which does show congestive findings with B/L pleural effusions and likely superimposed atelectasis. No leukocytosis or fever to suggest acute pneumonia but Abx were used that would dual cover while on Rocephin/Vanc -- Daughter believes patient has been on diuretics but thinks this may have been stopped due to admission in Dec due to dehydration and will need to further chart check - Additional Lasix given today with good diuresis and will monitor - - some inaccuracies with output due to some leaking with purewick catheter - Will repeat CXR in AM Dispo: Med/surg for treatment of cellulitis/osteomyelitis. Daughters leaning towards possible conservative measures currently and allow Abx to give some effect. Did discuss unfortunately the necrotic tissue will then still be present putting her at risk for ongoing infection/sepsis/bacteremia. Did discuss with orthopedics and possibly can monitor over next week but will have to be mindful of infection risk and plan for consideration for surgery at a later time. Will continue to discuss with daughters again and if conservative measures planned, ensure close F/U and monitoring. Will await further input from Ortho given MRI. Also with the extra fluid retention will get this managed prior to discharge. Supervising Physician Co-Signing Physician Notes Attending Attestation: Chart reviewed in detail, care plan d/w BRYANNA Weller. I agree w/ the jacome components of her documentation. Ongoing IV abx for right great toe osteomyelitis and right foot cellulitis. Recent Cx w/ pseudomonas. This is in setting of severe PAD. Agree with surgery/cardiology/ID that surgery is needed to resolve these issues however is poor candidate for such. Family seems to be leaning towards conservative measures. Agree w/ IV lasix and repeat cxr in am. Consider palliative care consultation in light of advanced age, numerous comorbidities, and the above issues. Nicolas Dowell MD Subjective Patient was noted to have a little bit more labored breathing. She does have a rather cyclic breathing pattern that is chronic. She did not verbalize any discomfort today with it and oxygen levels stayed appropriate. Did give additional Lasix which resulted in significant urine output. Review of Systems Respiratory: no cough and no dyspnea Cardiovascular: + edema; no chest pain Gastrointestinal: no abdominal pain, no nausea and no vomiting Musculoskeletal: no body aches Physical Exam Constitutional: WD/WN, vitals as above well developed and well nourished; no acute distress and not ill appearing Eyes: + anicteric sclerae ENMT: Ears: no hearing impairment Neck: trachea midline Respiratory: normal respiratory effort and + cough; not tachypneic Auscultation: + diminished lung sounds and + crackles Cardiovascular: Rate/Rhythm: regular rate and regular rhythm Gastrointestinal (Abdomen): Inspection/Auscultation: normal bowel sounds Percussion/Palpation: abdomen soft; abdomen nontender Skin: no rashes, warm and dry (other than described in MS section) Neurologic: moves all extremities Psychiatric: Orientation: alert, oriented to person and oriented to place Results & Data Vital Signs (Past 12 Hours) Vital Signs Temp Pulse Resp BP Pulse Ox 12/02/19 16:01 36.2 C L 64 20 117/70 95 12/02/19 14:28 74 24 136/65 97 12/02/19 09:41 28 H 97 12/02/19 07:51 36.4 C L 62 18 128/62 96 PG Care Time/CCT Total # of Minutes Spent Total Time Spent with Patient: Total time spent is greater than 50% in coordination of care (as documented) at patient's floor/unit and/or counseling patient: (1) A-fib Atrial fibrillation type: longstanding persistent Qualified Code(s): I48.11 - Longstanding persistent atrial fibrillation (2) Cellulitis Site of cellulitis: unspecified site Qualified Code(s): L03.90 - Cellulitis, unspecified (3) Hypothyroidism Hypothyroidism type: unspecified Qualified Code(s): E03.9 - Hypothyroidism, unspecified
[2019-12-02] MEDS: ATORVASTATIN 40 MG TAB PO SCH (21:51)
[2019-12-03] MEDS: LEVOTHYROXINE SODIUM 100 MCG TABLET PO SCH (05:33)
[2019-12-03 06:50] LABS: Creatinine Clr Calc Pharmacy 28.8 ml/min; Est GFR (African American) 49.4; Est GFR (Non-African American) 42.6
[2019-12-03] MEDS: RESTASIS: ORDER AWAITING ACTION SCH ×2 (09:19→15:55)
[2019-12-03] MEDS: OMEGA-3 (PURIFIED FISH OIL) 1 GM CAP PO SCH (09:52)
[2019-12-03] MEDS: FERROUS SULFATE 325 MG TAB PO SCH ×2 (09:52→15:59)
[2019-12-03] MEDS: ATENOLOL 50 MG TABLET PO SCH ×2 (09:53→21:20)
[2019-12-03] MEDS: CHOLECALCIFEROL 1,000 UNITS 25 MCG TAB PO SCH (09:53)
[2019-12-03] MEDS: LACTOBACILLUS ACIDOPHILUS (FLORANEX) TAB PO SCH ×4 (09:53→21:17)
[2019-12-03] MEDS: CLOPIDOGREL BISULFATE 75 MG TAB PO SCH (09:53)
[2019-12-03] MEDS: CEROVITE ADV FORMULA TAB PO SCH (09:54)
[2019-12-03] MEDS: ASCORBIC ACID 500 MG TAB PO SCH ×2 (09:54→21:21)
[2019-12-03] MEDS: FAMOTIDINE 20 MG TAB PO SCH (09:55)
[2019-12-03] MEDS: LORATADINE 10 MG TAB PO SCH (09:55)
[2019-12-03] MEDS: APIXABAN 2.5 MG TAB PO SCH ×2 (09:55→21:17)
[2019-12-03] MEDS: POTASSIUM CHLORIDE 20 MEQ/15 ML UDC PO SCH (09:56)
[2019-12-03] MEDS: DOCUSATE SODIUM 100 MG CAP PO SCH ×2 (11:06→21:17)
--- NOTE | 2019-12-03 11:23 | XRay Report ---
XR chest 1V portable CLINICAL HISTORY: 89 years-old Female presenting with F/U pleural effusion. TECHNIQUE: Portable upright AP view of the chest was obtained. COMPARISON: 11/30/2019. FINDINGS: Left subclavian pacer with leads to the right atrium and right ventricular apex. Atherosclerosis of t he aortic arch. Cardiac silhouette markedly enlarged. Mitral calcification noted. Bilateral moderate layering pleural effusions similar to prior exam. Mid to basilar opacities also similar. Pulmonary va scular prominence similar to prior. Calcified granuloma in the periphery of the right upper lung. No pneumothorax. Osteopenia. Deforming severe degenerative change of the glenohumeral joints. Degenerati ve changes of the spine. Large hiatal hernia. IMPRESSION: 1. Moderate bilateral layering pleural effusions with extensive atelectasis. 2. Mild to moderate pulmonary edema in the setting of cardiomegaly. Superimposed infectious process or aspiration are difficult to exclude but not favored. 3. Large hiatal hernia. ACT 112: Negative or not required by law. Electronically signed by: Carrington Harman M.D. 12/03/2019 11:22 AM
[2019-12-03] MEDS ORDERED: FUROSEMIDE 20 MG in SYRINGE 0 ML IV ONE (15:45)
[2019-12-03] MEDS: CEFEPIME 2,000 MG in SYRINGE 7.5 ML IV SCH (16:00)
--- NOTE | 2019-12-03 17:54 | Hospitalist Progress Note ---
Date of Service December 03, 2019 Assessment & Plan (1) Cellulitis: - IMPROVING - Right lower extremity cellulitis in setting of chronic osteomyelitis; failed outpatient treatment with Doxycycline - Wound culture with pseudomonas - will convert to Cefepime and D/C further Rocephin/Vanc; Blood cultures negative to date. - ID following, appreciate input - discussed with Dr. Bailon with plan to continue IV ABx with plan for conversion to Levaquin and will need monitoring for length of antibiotics nany until final decision on any definitive surgical management -- Discussed with daughter and patient did have some confusion while on Cipro in the past and this will need to be monitored (2) Osteomyelitis of great toe of right foot: - Follows with ortho; osteomyelitis appears stable on XR, unchanged from 11/08/19. - Consulted [facility] (follows as outpt) -- recommend possible transmetatarsal amputation vs. below knee amputation. - Family requested second opinion in regards to ortho intervention -- consulted [facility], appreciate input. -- MRI will be reviewed to help determine what all options will be and discussion with Dr. Grijalva when he returns next week - ABIs completed to determine vascular status -- BJ 0.39 right posterior tibial artery and 0.46 right dorsalis pedis artery. - Consulted Dr. Lopez with vascular surgery (follows as outpt) - may require BKA with vascular surgery vs. orthopedic group - no benefit from maritza nting/revascularization and ultimate surgical intervention necessary with likely BKA given level of vascular compromise - Converted to Cefepime given P. aeruginosa on Cx - Will need off Eliquis prior to surgical intervention if decided on - seems to be leaning towards conservative measures (3) Peripheral arterial disease: - Follows with Dr. Lopez; BJ results as noted above. - Continue statin, plavix as prescribed. (4) A-fib: - Rate controlled - Continue Atenolol 50 mg BID and Eliquis 2.5 mg BID. (5) TIA (transient ischemic attack): - H/o; continue statin and Plavix as prescribed. (6) HTN (hypertension): - Continue Atenolol as prescribed. (7) DVT (deep venous thrombosis): - H/o; continue renally dosed Eliquis. - Per note from [facility] - appears possibly LUE DVT in 2017 - currently has increased swelling in this extremity which is slightly improved today on exam - no pain, warmth, erythema - is on AC so unlikely DVT and U/S confirms this -- May be dependent edema from tendency to lean on this side?; May also be a combination of recent admission so possible further fluid accumulation; Venipuncture in this arm? (8) CKD (chronic kidney disease), stage III: - Creatinine is currently at baseline, will monitor. (9) Hypothyroidism: - TSH is 19.9; increased Levothyroxine to 100 mcg daily. - Repeat TFTs in 3-4 weeks - given infection this could be reactive finding? (10) Dementia: - Re-orient frequently; no evidence of acute hospital delirium at this time. (11) Central sleep apnea: - Noted cyclical apneic breathing during exam. Her daughter reports this breathing pattern is chronic for the patient. - Did obtain CXR which does show congestive findings with B/L pleural effusions and likely superimposed atelectasis. No leukocytosis or fever to suggest acute pneumonia but Abx were used that would dual cover while on Rocephin/Vanc -- Daughter believes patient has been on diuretics but thinks this may have been stopped due to admission in Dec due to dehydration and will need to further chart check - Lasix pending assessments - some inaccuracies with output due to some leaking with purewick catheter - Repeat CXR on 12/03 shows continuation of pulm edema/effusions - Consult CT Surg - any role for thoracentesis given soft BPs - did have H/O hypercalcemia on previous admission which was concerning for a cancerous process and may benefit from cell cytology? Will need to discuss given Eliquis Dispo: Med/surg for treatment of cellulitis/osteomyelitis. Daughters leaning towards possible conservative measures currently and allow Abx to give some effect. Did discuss unfortunately the necrotic tissue will then still be present putting her at risk for ongoing infection/sepsis/bacteremia. Did discuss with orthopedics and possibly can monitor but will have to be mindful of infection risk and plan for consideration for surgery at a later time. Will continue to discuss with daughters again and if conservative measures planned, ensure close F/U and monitoring. Will await further input from Ortho given MRI. Also with the extra fluid retention will get this managed prior to discharge. Supervising Physician Co-Signing Physician Notes Attending Attestation: Chart reviewed in detail, care plan d/w BRYANNA Weller. I agree w/ the jacome components of her documentation. Ongoing IV abx for right great toe osteomyelitis and right foot cellulitis. Recent Cx w/ pseudomonas. Severe PAD - follows with Dr Lopez - poor candidate for arterial intervention. Multiple consultants have suggested that surgery would be the only curative option for her right foot but again is poor candidate for such. Options discussed with family per Ms Weller - family seems to be leaning towards more conservative approach. For acute/chronic diastolic CHF - will give another 20mg of IV lasix today. Again consider palliative care consultation in light of advanced age, numerous comorbidities, and the above issues. Labs/vitals remain stable. Nicolas Dowell MD Subjective Patient appears well today. LUE edema looks to have improved some still she is not bothered by it. Her breathing looks better today but CXR still with fluid accumulation. Oxygen levels stable. Continues to have no pain with her foot. Verbalizes no complaints at this time Review of Systems Respiratory: no cough and no dyspnea Cardiovascular: + edema (L arm); no chest pain Gastrointestinal: no abdominal pain Musculoskeletal: no joint pain and no body aches Integumentary: + non-healing lesions Physical Exam Constitutional: WD/WN, vitals as above no acute distress and not ill appearing Eyes: + anicteric sclerae ENMT: Ears: no hearing impairment Neck: trachea midline Respiratory: Auscultation: + diminished lung sounds intermittent labored breathing; shallow breaths Cardiovascular: Rate/Rhythm: regular rate and regular rhythm Gastrointestinal (Abdomen): Inspection/Auscultation: normal bowel sounds Percussion/Palpation: abdomen soft; abdomen nontender Musculoskeletal: Head/Neck/Chest: normocephalic Skin: dressing applied to RLE C/D/I - did not remove at this time Neurologic: moves all extremities Psychiatric: Orientation: alert, oriented to person and oriented to place forgetful Results & Data Vital Signs (Past 12 Hours) Vital Signs Temp Pulse Resp BP Pulse Ox 12/03/19 08:11 36.2 C L 64 18 98/59 L 93 PG Care Time/CCT Total # of Minutes Spent Total Time Spent with Patient: Total time spent is greater than 50% in coordination of care (as documented) at patient's floor/unit and/or counseling patient: (1) A-fib Atrial fibrillation type: longstanding persistent Qualified Code(s): I48.11 - Longstanding persistent atrial fibrillation (2) Cellulitis Site of cellulitis: unspecified site Qualified Code(s): L03.90 - Cellulitis, unspecified (3) Hypothyroidism Hypothyroidism type: unspecified Qualified Code(s): E03.9 - Hypothyroidism, unspecified
[2019-12-03] MEDS: ATORVASTATIN 40 MG TAB PO SCH (21:18)
[2019-12-04 05:26] LABS: Hematocrit (blood only) 34.7 % (37-47); Hemoglobin 11.7 g/dL (12.0-16.0); Mean Corpuscular Hemoglobin 30.8 pg (25-34); Mean Corpuscular Hgb Conc 33.7 g/dL (32-36); Mean Corpuscular Volume 91.3 fL (80-100); Mean Platelet Volume 9.8 fL (7.4-10.4); Platelet Count 205 K/uL (130-400); RDW Coefficient of Variation 18.9 % (11.5-14.5); RDW Standard Deviation 61.7 fL (36.4-46.3); White Blood Count 9.28 K/uL (4.8-10.8)
[2019-12-04 05:55] LABS: BUN Creatinine Ratio 15.8 (10-20); Calcium 8.7 mg/dl (8.5-10.1); Creatinine Clr Calc Pharmacy 30.9 ml/min; Est GFR (African American) 53.9; Est GFR (Non-African American) 46.5; Potassium 3.1 mmol/L (3.5-5.1)
[2019-12-04] MEDS: LEVOTHYROXINE SODIUM 100 MCG TABLET PO SCH (06:07)
[2019-12-04] MEDS ORDERED: POTASSIUM CHLORIDE 20 MEQ TABCR PO ONE (08:00)
[2019-12-04] MEDS: RESTASIS: ORDER AWAITING ACTION SCH ×3 (08:45→23:29)
[2019-12-04] MEDS: ATENOLOL 50 MG TABLET PO SCH ×2 (08:50→20:45)
[2019-12-04] MEDS: APIXABAN 2.5 MG TAB PO SCH ×2 (08:50→20:46)
[2019-12-04] MEDS: LORATADINE 10 MG TAB PO SCH (08:51)
[2019-12-04] MEDS: CLOPIDOGREL BISULFATE 75 MG TAB PO SCH (08:51)
[2019-12-04] MEDS: OMEGA-3 (PURIFIED FISH OIL) 1 GM CAP PO SCH ×2 (08:52→09:17)
[2019-12-04] MEDS: FAMOTIDINE 20 MG TAB PO SCH (08:52)
[2019-12-04] MEDS: CEROVITE ADV FORMULA TAB PO SCH (08:52)
[2019-12-04] MEDS: FERROUS SULFATE 325 MG TAB PO SCH ×2 (08:53→16:37)
[2019-12-04] MEDS: LACTOBACILLUS ACIDOPHILUS (FLORANEX) TAB PO SCH ×4 (08:53→20:37)
[2019-12-04] MEDS: CHOLECALCIFEROL 1,000 UNITS 25 MCG TAB PO SCH (08:54)
[2019-12-04] MEDS: ASCORBIC ACID 500 MG TAB PO SCH ×2 (08:55→20:37)
[2019-12-04] MEDS ORDERED: CEFEPIME 2,000 MG in SYRINGE 7.5 ML IV SCH (09:00)
[2019-12-04] MEDS: POTASSIUM CHLORIDE 20 MEQ/15 ML UDC PO SCH (09:14)
[2019-12-04] MEDS: DOCUSATE SODIUM 100 MG CAP PO SCH ×2 (09:19→20:49)
--- NOTE | 2019-12-04 10:05 | CT Scan Report ---
CT chest wo con CLINICAL HISTORY: pleural effusion COMPARISON STUDY: 11/07/2019 CT DOSE: 424.17 mGycm TECHNIQUE: CT of the thorax was performed from the thoracic inlet to the lung bases. Images are revi ewed in the axial, sagittal, and coronal planes. IV contrast was not administered for this examinatio n. A dose lowering technique was utilized adhering to the principles of ALARA. FINDINGS: Thyroid: Imaged portions of the thyroid gland are normal in appearance. Thoracic aorta: The thoracic aorta is normal in course and caliber, noting standard 3 vessel arch monroe cee. Heart: The heart is enlarged with coronary artery calcifications. There is a trace pericardial effusi on. There is a bipolar central venous pacemaker present. Lungs and pleural spaces: There are increasing moderate bilateral pleural effusions. There is a calci fied right upper lobe granuloma. There are lower lung zone compressive atelectatic changes. Mediastinum: There is a large hiatal hernia with a large portion the stomach being intrathoracic. The re is a mildly dilated fluid-filled esophagus. There is no pathologic adenopathy. Naz: There is no evidence of pathologic adenopathy given the limitations of a noncontrast study. Axilla: There is no evidence of pathologic axillary lymphadenopathy Upper abdomen: Partially visualized upper abdominal viscera is within normal limits. Skeletal structures: Advanced arthritic changes are present within the shoulders. IMPRESSION: 1. Cardiomegaly with increasing moderate bilateral pleural effusions with associated basilar compress anamika atelectasis 2. Large hiatal hernia with an associated mildly dilated fluid-filled esophagus ACT 112: Negative or not required by law. Electronically signed by: Get Santizo M.D. 12/04/2019 10:04 AM
--- NOTE | 2019-12-04 13:39 | Surgery Progress Note ---
Date of Service December 04, 2019 Assessment & Plan (1) Bilateral pleural effusion: This 89-year-old female has bilateral pleural effusions are rather small. She has very little fluid on the right. Most of what is seen on the x-ray is her stomach and atelectatic right lung. Part of this atelectasis is probably due to her intrathoracic stomach. On the left side she does have some fluid. It is conceivable we could tap this however, this elderly female is on room air with 94% saturation it is not physically active. He spends most of her time in a wheelchair. At this point, I would hold off offering her anything. If her effusions increase I would offer her a thoracentesis on the left however, that will not be a long-term solution. I would attempt to medically manage these and support her instead. Will be glad to see her and address these effusions if necessary. For specifics of this consult please see Kal Hollis's consultation from earlier today. Present on Admission?: Yes Results & Data Vital Signs (Past 12 Hours) Vital Signs Temp Pulse Pulse Resp BP BP Pulse Ox 12/04/19 08:47 68 148/72 H 12/04/19 06:54 36.6 C 70 16 112/64 94 PG Care Time/CCT Total # of Minutes Spent Total Time Spent with Patient: Total time spent is greater than 50% in coordination of care (as documented) at patient's floor/unit and/or counseling patient:
[2019-12-04] MEDS ORDERED: FUROSEMIDE 40 MG in SYRINGE 0 ML IV ONE (15:15)
--- NOTE | 2019-12-04 15:25 | Hospitalist Progress Note ---
Date of Service December 04, 2019 Assessment & Plan (1) Cellulitis: - IMPROVING - Right lower extremity cellulitis in setting of chronic osteomyelitis; failed outpatient treatment with Doxycycline - Wound culture with pseudomonas - Converted to Cefepime given Cx and now will convert to Levaquin 750 mg Q48H with renal dosing; Blood cultures negative to date. - ID following, appreciate input - will need F/U to help determine duration of therapy especially if no surgical intervention is decided upon -- Discussed with daughter and patient did have some confusion while on Cipro in the past and this will need to be monitored (2) Osteomyelitis of great toe of right foot: - Follows with ortho; osteomyelitis appears stable on XR, unchanged from 11/08/19. - Consulted [facility] (follows as outpt) -- recommend possible transmetatarsal amputation vs. below knee amputation. - Family requested second opinion in regards to ortho intervention -- consulted [facility], appreciate input. -- MRI will be reviewed to help determine what all options will be and discussion with Dr. Grijalva when he returns next week - ABIs completed to determine vascular status -- BJ 0.39 right posterior tibial artery and 0.46 right dorsalis pedis artery. - Consulted Dr. Lopez with vascular surgery (follows as outpt) - may require BKA with vascular surgery vs. orthopedic group - no benefit from stenting/revascularization and ultimate surgical intervention necessary with likely BKA given level of vascular compromise - Treatment as above (3) Peripheral arterial disease: - Follows with Dr. Lopez; BJ results as noted above. - Continue statin, plavix as prescribed. (4) A-fib: - Rate controlled - Continue Atenolol 50 mg BID and Eliquis 2.5 mg BID. (5) TIA (transient ischemic attack): - H/o; continue statin and Plavix as prescribed. (6) HTN (hypertension): - Continue Atenolol as prescribed. (7) DVT (deep venous thrombosis): - H/O; continue renally dosed Eliquis. - Per note from [facility] - appears possibly LUE DVT in 2017 - currently has increased swelling in this extremity which is slightly improved today on exam - no pain, warmth, erythema - is on AC so unlikely DVT and U/S confirms this -- May be dependent edema from tendency to lean on this side?; May also be a combination of recent admission so possible further fluid accumulation; Venipuncture in this arm? (8) CKD (chronic kidney disease), stage III: - Creatinine is currently at baseline, will monitor. (9) Hypothyroidism: - TSH is 19.9; increased Levothyroxine to 100 mcg daily. - Repeat TFTs in 3-4 weeks - given infection this could be reactive finding? (10) Dementia: - Re-orient frequently; no evidence of acute hospital delirium at this time. (11) Central sleep apnea: - Noted cyclical apneic breathing during exam. Her daughter reports this breathing pattern is chronic for the patient. - Did obtain CXR which does show congestive findings with B/L pleural effusions and likely superimposed atelectasis. No leukocytosis or fever to suggest acute pneumonia but Abx were used that would dual cover while on Rocephin/Vanc -- Daughter believes patient has been on diuretics but thinks this may have been stopped due to admission in Dec due to dehydration but did not see diure tics on her list from that admission - Lasix pending assessments - some inaccuracies with output due to some leaking with purewick catheter - CT scan with effusions and atelectasis - no noted pneumonia - Consult CT Surg - discussed with Kal Hollis - no plans for thoracentesis at this current time Dispo: Discussed with daughter at bedside. Plan to get patient back to [facility] tomorrow. Can utilize regimen of diuretics and monitor weights/output at [facility]. Continue antibiotics and can have outpatient orthopedics F/U; can F/U with wound care and ID Subjective Verbalizes no complaints at this time. Seems a little more forgetful today and not as talkative. However no acute distress. Not eating much of her lunch but did have a late breakfast due to a scan this morning. Her oxygen saturations are remaining well on room air. Continues to have no pain in the foot. LUE swelling reducing. Discussed with daughter at bedside who would like to get her back to [facility] and back to her normal routine and can have outpatient follow-up. Patient is stable and current conditions can be managed and monitored and will work on discharge tomorrow. Review of Systems Respiratory: + cough; no dyspnea Cardiovascular: + edema (L arm - nearly resolved); no chest pain Gastrointestinal: no abdominal pain Physical Exam Constitutional: WD/WN, vitals as above no acute distress and not ill appearing Eyes: + anicteric sclerae ENMT: Ears: no hearing impairment Neck: trachea midline Respiratory: normal respiratory effort, + labored breathing (mild - chronic and cyclic with patient - she denies SOB) and + cough; not tachypneic Auscultation: + diminished lung sounds Cardiovascular: Rate/Rhythm: regular rate and regular rhythm Gastrointestinal (Abdomen): Inspection/Auscultation: normal bowel sounds Percussion/Palpation: abdomen soft; abdomen nontender Musculoskeletal: Head/Neck/Chest: normocephalic mild swelling largely in dependent aspect of the forearm - remains non-erythematous, not warm to touch, non-tender; Skin: no rashes, warm and dry (other than described in MS section) Neurologic: moves all extremities Psychiatric: Orientation: alert, oriented to person and oriented to place Results & Data Vital Signs (Past 12 Hours) Vital Signs Temp Pulse Pulse Resp BP BP Pulse Ox 12/04/19 08:47 68 148/72 H 12/04/19 06:54 36.6 C 70 16 112/64 94 PG Care Time/CCT Total # of Minutes Spent Total Time Spent with Patient: Total time spent is greater than 50% in coordination of care (as documented) at patient's floor/unit and/or counseling patient: (1) Cellulitis Site of cellulitis: unspecified site Qualified Code(s): L03.90 - Cellulitis, unspecified (2) A-fib Atrial fibrillation type: longstanding persistent Qualified Code(s): I48.11 - Longstanding persistent atrial fibrillation (3) Hypothyroidism Hypothyroidism type: unspecified Qualified Code(s): E03.9 - Hypothyroidism, unspecified
[2019-12-04] MEDS ORDERED: levoFLOXacin 750 MG TAB PO SCH (16:00)
--- NOTE | 2019-12-04 17:09 | Surgery Consultation ---
Date of Consultation December 04, 2019 Assessment & Plan (1) Bilateral pleural effusion: -at this time pt. is not in respiratory distress and not requiring oxygen -given the above lack of symptoms and her advanced age, will not intervene at this time -will follow pt. clinically and radiographically and perform drainage procedure if needed History of Present Illness Attending Physician: Nicolas Dowell History of Present Illness 89 year old female admitted secondary to cellulitis of foot. During course of hospitalization she underwent chest imaging that showed bilateral pleural effusions. At the time of my visit, she reported that her breathing felt good. No fevers, shakes, chills. I discussed with her daughters at bedside and they note she is mostly wheelchair bound and dos not really ambulate. Allergies Allergy/AdvReac Type Severity Reaction Status Date / Time amoxicillin Allergy Mild RASH Verified 11/27/19 11:43 Home Medications Home Medications Medication Instructions Recorded Confirmed Type acetaminophen 325 mg capsule 650 mg PO Q6H PRN cap 07/11/18 11/27/19 History clopidogrel 75 mg tablet 75 mg PO QAM tab 07/11/18 11/27/19 History cyanocobalamin (vitamin B-12) 1,000 mcg IM UD ea 07/11/18 11/27/19 History 1,000 mcg/mL injection kit ferrous sulfate 325 mg (65 mg 325 mg PO BID tab 07/11/18 11/27/19 History iron) tablet loratadine 10 mg tablet 10 mg PO DAILY 07/11/18 11/27/19 History omega 6-bnx-xbw-fish oil 100 1 cap PO DAILY cap 07/11/18 11/27/19 History mg-160 mg-1,000 mg capsule Eliquis 2.5 mg PO BID 06/21/19 11/27/19 History ascorbic acid (vitamin C) [Vitamin 250 mg PO BID 06/21/19 11/27/19 History C] azelastine 1 spray INTRANASAL BID 06/21/19 11/27/19 History cholecalciferol (vitamin D3) 1,000 unit PO DAILY 06/21/19 11/27/19 History [Vitamin D3] magnesium hydroxide [Milk of 30 ml PO DIRECTED PRN 06/21/19 11/27/19 History Magnesia] sodium chloride [Saline Nasal] 2 spray INTRANASAL DAILY PRN 06/21/19 11/27/19 History Lactobacillus acidoph-L.bulgar 4 tab PO QIDM #0 tab 06/26/19 11/27/19 Rx [Floranex] atenolol 50 mg PO BID #60 tab 06/26/19 11/27/19 Rx multivitamin with iron-mineral 1 tab PO DAILY 11/07/19 11/27/19 History docusate sodium 100 mg PO BID #60 cap 11/10/19 11/27/19 Rx atorvastatin 40 mg PO PM 11/27/19 11/27/19 History cyclosporine 1 drp OPHTHALMIC (EYE) Q12H 11/27/19 11/27/19 History famotidine 20 mg PO BID 11/27/19 11/27/19 History potassium chloride 20 meq PO DAILY 11/27/19 11/27/19 History furosemide 20 mg PO DAILY 5 Days #5 tab 12/05/19 Rx levofloxacin 750 mg PO Q48H 28 Days #14 tab 12/05/19 Rx levothyroxine [Synthroid] 100 mcg PO DAILYBB 30 Days #30 tab 12/05/19 Rx tramadol 100 mg PO TID PRN 3 Days #3 tab 12/05/19 Rx Patient History Medical History A-fib Born in [facility] (Chronic) Chronic kidney disease (Chronic) Chronic osteomyelitis (Chronic) DVT (deep venous thrombosis) (Chronic) Dyslipidemia (Chronic) E. coli septicemia Encounter for colonoscopy due to history of adenomatous colonic polyps (Chronic) Exploratory laparotomy scar (Chronic) Gram-negative bacteremia (Acute) HTN (hypertension) (Chronic) Hypothyroid (Chronic) Metabolic encephalopathy Osteoporosis (Chronic) Pacemaker Parkinson disease (Chronic) Peripheral arterial disease (Chronic) Sepsis (Acute) Sick sinus syndrome TIA (transient ischemic attack) (Chronic) UTI (urinary tract infection) (Acute) Surgical History History of tonsillectomy and adenoidectomy (Chronic) Hx of cardiac pacemaker Family History Other No pertinent family history Social History Preferred Language: Hungarian Communication Ability: Impaired Retail Experience Specialist Required: No Beliefs That Will Affect Care: None marital status: / Current Living Situation: [facility] Current Living Situation Comment: [facility] Feels Safe at Home: Yes Smoking Status: Never smoker Second Hand Exposure: No ; Hx Alcohol Use: No Hx Substance Use: No Review of Systems Constitutional: no fever Respiratory: no cough and no dyspnea Cardiovascular: no chest pain Gastrointestinal: + dysphagia; no nausea Integumentary: no rash Neurologic: no localized weakness Physical Exam Constitutional: well developed and well nourished; no acute distress Eyes: no conjunctival abnormality ENMT: Ears: no hearing impairment Neck: trachea midline Respiratory: normal respiratory effort; no respiratory distress and no labored breathing BS are noted to be decreased at bases bilaterally Cardiovascular: Rate/Rhythm: regular rate and regular rhythm Gastrointestinal (Abdomen): Percussion/Palpation: abdomen soft; abdomen nontender Neurologic: moves all extremities Results & Data Vital Signs (Past 12 Hours) Vital Signs Temp Pulse Pulse Resp BP BP Pulse Ox 12/04/19 15:34 36.6 C 64 18 131/75 96 12/04/19 08:47 68 148/72 H 12/04/19 06:54 36.6 C 70 16 112/64 94 PG Care Time/CCT Total # of Minutes Spent Total Time Spent with Patient: Total time spent is greater than 50% in coordination of care (as documented) at patient's floor/unit and/or counseling patient:
[2019-12-04] MEDS: ATORVASTATIN 40 MG TAB PO SCH (20:37)
[2019-12-05] MEDS: LEVOTHYROXINE SODIUM 100 MCG TABLET PO SCH (05:33)
[2019-12-05 08:59] LABS: Hematocrit (blood only) 37.5 % (37-47); Hemoglobin 12.1 g/dL (12.0-16.0); Mean Corpuscular Hemoglobin 30.4 pg (25-34); Mean Corpuscular Hgb Conc 32.3 g/dL (32-36); Mean Corpuscular Volume 94.2 fL (80-100); Platelet Count 194 K/uL (130-400); Red Blood Count 3.98 M/uL (4.2-5.4)
[2019-12-05 09:05] LABS: Calcium 8.8 mg/dl (8.5-10.1); Creatinine Clr Calc Pharmacy 30.1 ml/min; Est GFR (African American) 52.1; Potassium 3.5 mmol/L (3.5-5.1)
[2019-12-05] MEDS: RESTASIS: ORDER AWAITING ACTION SCH (10:37)
[2019-12-05] MEDS: LACTOBACILLUS ACIDOPHILUS (FLORANEX) TAB PO SCH ×2 (10:38→14:14)
[2019-12-05] MEDS: CHOLECALCIFEROL 1,000 UNITS 25 MCG TAB PO SCH (10:38)
[2019-12-05] MEDS: ASCORBIC ACID 500 MG TAB PO SCH (10:38)
[2019-12-05] MEDS: FAMOTIDINE 20 MG TAB PO SCH (10:39)
[2019-12-05] MEDS: ATENOLOL 50 MG TABLET PO SCH (10:39)
[2019-12-05] MEDS: CLOPIDOGREL BISULFATE 75 MG TAB PO SCH (10:39)
[2019-12-05] MEDS: CEROVITE ADV FORMULA TAB PO SCH (10:39)
[2019-12-05] MEDS: OMEGA-3 (PURIFIED FISH OIL) 1 GM CAP PO SCH (10:40)
[2019-12-05] MEDS: FERROUS SULFATE 325 MG TAB PO SCH (10:40)
[2019-12-05] MEDS: APIXABAN 2.5 MG TAB PO SCH (10:40)
[2019-12-05] MEDS: DOCUSATE SODIUM 100 MG CAP PO SCH (10:41)
[2019-12-05] MEDS: LORATADINE 10 MG TAB PO SCH (10:41)
[2019-12-05] MEDS: POTASSIUM CHLORIDE 20 MEQ/15 ML UDC PO SCH (10:52)
--- NOTE | 2019-12-05 18:21 | Discharge Summary ---
Date of Service December 05, 2019 Admission HPI Per Admitting Provider Maria M Victor is a pleasant 89 year old female who resides at 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 Unobtainable history from patient due to dementia. In the ER she was started on ceftriaxone and vancomycin. She has a history of ESBL E. coli however primary source of this has been her urine. Principal Diagnosis Osteomyelitis of R Great Toe; Volume Overload Discharge Exam Constitutional + frail appearing; no acute distress and not ill appearing Eyes + anicteric sclerae ENMT Ears: no hearing impairment Neck trachea midline Respiratory normal respiratory effort (intermittent more labored breathing but patient denies discomfort) Auscultation: + diminished lung sounds Cardiovascular Rate/Rhythm: regular rate and regular rhythm Gastrointestinal (Abdomen) Inspection/Auscultation: normal bowel sounds Percussion/Palpation: abdomen soft; abdomen nontender Musculoskeletal Head/Neck/Chest: normocephalic and head atraumatic Skin R Foot with dressing and wrapping applied. Removed by ortho and assessed but did not remove myself; some mild residual edema to LUE mostly in dependent aspect of forearm Psychiatric Orientation: alert and oriented x 3 (but forgetful) Discharge Data Allergies Allergy/AdvReac Type Severity Reaction Status Date / Time amoxicillin Allergy Mild RASH Verified 11/27/19 11:43 Consultations 11/27/19 14:15 ED Decision to Admit Stat 11/27/19 16:30 Consult Orthopedic Surgery Routine 11/27/19 16:57 Consult Infectious Diseases Routine 11/29/19 10:40 Consult Orthopedic Surgery Routine 11/29/19 15:10 Consult Vascular Surgery Routine 12/03/19 15:19 Consult Thoracic Surgery Routine Ordered Studies 11/29/19 11:44 US ankle/brachial index ltd Routine 11/29/19 15:10 US arterial duplex LE RT Routine 12/01/19 12:29 MR foot RT wo/w con Routine US venous doppler UE LT Routine 12/04/19 08:17 CT chest wo con Routine Hospital Course (1) Cellulitis: - IMPROVING - Right lower extremity cellulitis in setting of chronic osteomyelitis; failed outpatient treatment with Doxycycline - Wound culture with pseudomonas - Converted to Cefepime given Cx and now will convert to Levaquin 750 mg Q48H with renal dosing; Blood cultures negative to date. - ID following, appreciate input - will need F/U to help determine duration of therapy especially if no surgical intervention is decided upon - did provide Rx for 4 weeks but should have close F/U to see full length of treatment -- Discussed with daughter and patient did have some confusion while on Cipro in the past and this will need to be monitored (2) Osteomyelitis of great toe of right foot: - Follows with ortho; osteomyelitis appears stable on XR, unchanged from 11/08/19. - Consulted [facility] (follows as outpt) -- recommend possible transmetatarsal amputation vs. below knee amputation. - Family requested second opinion in regards to ortho intervention -- consulted [facility], appreciate input. -- family would like to continue with [facility] and can F/U in one week with Dr. Grijalva - ABIs completed to determine vascular status -- BJ 0.39 right posterior tibial artery and 0.46 right dorsalis pedis artery. - Consulted Dr. Lopez with vascular surgery (follows as outpt) - may require BKA with vascular surgery vs. orthopedic group - no benefit from stenting/revascularization and ultimate surgical intervention necessary with likely BKA given level of vascular compromise - Treatment as above (3) Peripheral arterial disease: - Follows with Dr. Lopez; BJ results as noted above. - Continue statin, plavix as prescribed. (4) A-fib: - Rate controlled - Continue Atenolol 50 mg BID and Eliquis 2.5 mg BID. (5) TIA (transient ischemic attack): - H/O; continue statin and Plavix as prescribed. (6) HTN (hypertension): - Continue Atenolol as prescribed. (7) DVT (deep venous thrombosis): - H/O; continue renally dosed Eliquis. - Per note from [facility] - appears possibly LUE DVT in 2017 - currently has increased swelling in this extremity which is slightly improved today on exam - no pain, warmth, erythema - is on AC so unlikely DVT and U/S confirms this -- Nearly resolved - just some residual swelling in dependent aspect of forearm (8) CKD (chronic kidney disease), stage III: - Creatinine is currently at baseline (9) Hypothyroidism: - TSH is 19.9; increased Levothyroxine to 100 mcg daily. - Repeat TFTs in 3-4 weeks - given infection this could be reactive finding? (10) Dementia: - Re-orient frequently; no evidence of acute hospital delirium at this time. (11) Central sleep apnea: - Noted cyclical apneic breathing during exam. Her daughter reports this breathing pattern is chronic for the patient. - Did obtain CXR which does show congestive findings with B/L pleural effusions and likely superimposed atelectasis. No leukocytosis or fever to suggest acute pneumonia but Abx were used that would dual cover while on Rocephin/Vanc - WIll continue Lasix 20 mg x 5 days and assess labs - consideration for ongoing Lasix vs monitoring pending response as O2 levels acceptable may be more beneficial to just observe given age and comorbidities - CT scan with effusions and atelectasis - no noted pneumonia - Consult CT Surg - discussed with Kal Hollis - no plans for thoracentesis at this current time Dispo: ID and Orthopedics F/U; Continue ABx with duration per ID; Lasix x 5 days with blood work to monitor electrolytes/kidney function; TSH recheck in 4-6 weeks Total Time Total Time Spent Total Time Spent (In Minutes): Greater than 30 minutes Discharge Plan Discharge Items Patient Disposition: Transfer Care Home Fac Reason For Visit: CELLULITIS Discharge Diagnosis: Cellulitis Condition on Discharge: Good Goals: complete treatment of osteomyelitis and cellulitis Activity: Resume your previous activity Non-emergency contact: Primary Care Provider Call non-emergency contact if: you have any medication questions, your symptoms worsen and you have a fever Follow-up/Referrals: Jorge Aggarwal [Primary Care Provider] - Diet: Heart Healthy Addtl Attending Provider Instructions: Cellulitis: - IMPROVING - Right lower extremity cellulitis in setting of chronic osteomyelitis; failed outpatient treatment with Doxycycline - Wound culture with pseudomonas - Converted to Cefepime given Cx and now will convert to Levaquin 750 mg Q48H with renal dosing; Blood cultures negative to date. - ID following - will need F/U to help determine duration of therapy especially if no surgical intervention is decided upon - recommend follow up in next 7 days if possible and with wound care to monitor the area/toes. Will give 4 weeks of antibiotics for now but will need input from Dr. Bailon for duration of treatment. Especially if surgery is not performed - It is reported she had confusion on Ciprofloxacin in the past. Its not as common with Levaquin but will need to watch for signs of confusion due to medications Osteomyelitis of great toe of right foot: - Recommend to follow-up with [facility] in next 7 days if possible as well - recommendations has been possibly a below the knee amputation however currently we are watching this - There is some blackening to the toes and this can continue to be a risk for infection. Will need to watch for fever, altered mental status, worsening redness/blackness of feet, or any other signs of infection - Will follow with [facility] instead of [facility] currently as family recommending this group. Was seen By Dr. Hensley but likely will need to see Dr. Grijalva if a more aggressive plan for the foot/leg is sought. - Dr. Lopez evaluated an currently no benefit to stenting the vessels of the legs at this time - Continue dressing changes to Right Foot. Continue position changes to help with sacral pressure region Peripheral arterial disease: - Follows with Dr. Lopez - Continue statin, plavix as prescribed. A-fib: - Rate controlled - Continue Atenolol 50 mg BID and Eliquis 2.5 mg BID. TIA (transient ischemic attack): - H/o; continue statin and Plavix as prescribed. HTN (hypertension): - Continue Atenolol as prescribed. DVT (deep venous thrombosis): - H/O; continue renally dosed Eliquis. - Per note from [facility] - appears possibly LUE DVT in 2017 - currently has increased swelling in this extremity which is slightly improved today on exam - no pain, warmth, erythema - is on AC so unlikely DVT and U/S confirms this This is improving but seems to remain in dependent areas CKD (chronic kidney disease), stage III: - Creatinine is currently at baseline, will monitor. Hypothyroidism: - TSH is 19.9; increased Levothyroxine to 100 mcg daily. - Repeat TFTs in 3-4 weeks Central sleep apnea: - Noted cyclical apneic breathing during exam. Her daughter reports this breathing pattern is chronic for the patient. - Did obtain CXR which does show congestive findings with B/L pleural effusions and likely superimposed atelectasis. No leukocytosis or fever to suggest acute pneumonia but Abx were used that would dual cover while on Rocephin/Vanc - Have used intermittent Lasix to help pull extra fluid off which has resulted in a good diuresis of fluid/urine - Can use Lasix 20 mg daily x 5 days and get a BMP to assess kidneys and electrolytes. Recommend BMP in 2 days and again after the 5 day course. Her oxygen levels have remained normal so may be best to not over treat and create problems - No indiciation for thoracentesis but can refer to Dr. Dover if ongoing issues as he did see her here Disposition: - Wound care and infectious disease - Orthopedics - [facility] - Dr. Hensley/Dr. Grijalva - BMP in 2 days and again in 5 days from now - Dr. Dover F/U as needed - Recommend seeing primary provider in next 1-2 days Pending Studies at Discharge: No Stand-Alone Forms: My [facility] Skilled Items Patient informed of condition?: Yes DNR: Yes Discharge Level of Care: Skilled Communicable Disease: Yes (MRSA history) Discharge Prognosis: Stable Lines: None Urinary Catheter: No Medications and DC Order Prescriptions: New levofloxacin 750 mg Tablet 750 mg PO Q48H 28 Days Qty: 14 RF: 0 levothyroxine [Synthroid] 100 mcg Tablet 100 mcg PO DAILYBB 30 Days Qty: 30 RF: 0 Continued acetaminophen 325 mg capsule 650 mg PO Q6H PRN (Reason: pain/fever) RF: 0 clopidogrel 75 mg tablet 75 mg PO QAM RF: 0 cyanocobalamin (vitamin B-12) 1,000 mcg/mL kit 1,000 mcg IM UD RF: 0 ferrous sulfate 325 mg (65 mg iron) tablet 325 mg PO BID RF: 0 omega 7-ahm-fqy-fish oil [Fish Oil] 100-160-1,000 mg capsule 1 cap PO DAILY RF: 0 loratadine [Claritin] 10 mg tablet 10 mg PO DAILY RF: 0 multivitamin with iron-mineral Tablet 1 tab PO DAILY RF: 0 docusate sodium 100 mg Capsule 100 mg PO BID Qty: 60 RF: 0 atorvastatin 40 mg Tablet 40 mg PO PM RF: 0 famotidine 20 mg Tablet 20 mg PO BID RF: 0 potassium chloride 20 mEq Tablet Extended Release 20 meq PO DAILY RF: 0 cyclosporine 0.05 % Drops 1 drp OPHTHALMIC (EYE) Q12H RF: 0 tramadol 50 mg tablet 100 mg PO TID PRN (Reason: Pain) 3 Days Qty: 3 RF: 0 azelastine 137 mcg (0.1 %) Aerosol,Dexter 1 spray INTRANASAL BID RF: 0 Eliquis 2.5 mg Tablet 2.5 mg PO BID RF: 0 magnesium hydroxide [Milk of Magnesia] 400 mg/5 mL Suspension 30 ml PO DIRECTED PRN (Reason: Constipation) RF: 0 sodium chloride [Saline Nasal] 0.65 % Aerosol,Dexter 2 spray INTRANASAL DAILY PRN (Reason: allergic rhinitis) RF: 0 ascorbic acid (vitamin C) [Vitamin C] 250 mg Tablet 250 mg PO BID RF: 0 cholecalciferol (vitamin D3) [Vitamin D3] 1,000 unit Tablet,Chewable 1,000 unit PO DAILY RF: 0 atenolol 50 mg Tablet 50 mg PO BID Qty: 60 RF: 0 Lactobacillus acidoph-L.bulgar [Floranex] 1 million cell Tablet 4 tab PO QIDM Qty: 0 RF: 0 Discontinued levothyroxine 88 mcg capsule 88 mcg PO QAM RF: 0 doxycycline hyclate 100 mg capsule 100 mg PO BID 21 Days Qty: 42 RF: 0 Discharge Orders: Discharge Order (Routine); Ordered 12/05/19 Ordered By: Arabella Weller Admission Data Admit Date/Time: 11/27/19 14:34 Attending Provider: Terry Gee Admit Provider: Nicolas Bell Primary Care Provider: Jorge Aggarwal Other Providers: Carrington Bae ; Sravanthi Bailon ; Arnulfo Dover ; Gerard Hensley ; Miguel Lopez Other Interventions: Discharge Summary Assessment (RN) Last Done: 12/05/19 14:29 DC Date/Time DO NOT enter until pt leaves facility: 12/05/19 14:30 Supervising Physician Co-Signing Physician Notes Attending note: patient seen and examined with Arabella Weller PA-C. I agree with her discharge summary. I personally reviewed the labs and imaging findings. patient doing well on the day of discharge eating, minimal pain, no respiratory issues - Osteomyelitis / cellulitis of great toe continue course of Levaquin, follow up with ID and orthopedic surgery orthopedic surgery recommending either transmetatarsal amputation or BKA consulted interventional cardiology, no role in stenting peripheral arteries, needs amputation for full details see the d/c summary above Coding Level of Care Code D/C Day Management >30 mins Diagnoses Cellulitis L03.90 Site of cellulitis: unspecified site Osteomyelitis of great toe of right foot M86.9 Peripheral arterial disease I73.9 A-fib I48.11 Atrial fibrillation type: longstanding persistent TIA (transient ischemic attack) G45.9 HTN (hypertension) I10 DVT (deep venous thrombosis) I82.409 CKD (chronic kidney disease), stage III N18.3 Hypothyroidism E03.9 Hypothyroidism type: unspecified Dementia F03.90 Central sleep apnea G47.31
--- NOTE | 2019-12-14 07:07 | Coding Query ---
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 Please assist us with the question(s) below: Coding Question(s): There is documentation on Progress Note 12/03/19 of, "For acute/chronic diastolic CHF - will give another 20mg of IV lasix today.". There is no further documentation of Acute/Chronic Diastolic CHF on the 12/04 Progress Note or on the Discharge Summary. Please clarify below, in your clinical opinion. ( ) Acute/Chronic Diastolic CHF, treated with IV Lasix ( x) Acute/Chronic Diastolic CHF was Ruled-Out ( ) Other: Please Specify Physician's Response(s): Thank you Bhavna Gómez Principal Diagnosis: "that condition established after study, to be chiefly responsible for occasioning the admission of the patient to the hospital for care." Co-Existing Principal Diagnosis: "when two or more diagnoses equally meet the criteria for principal diagnosis as determined by the circumstances of admission, diagnostic work up, and/or therapy provided, and the Alphabetic Index, Tabular List, or another coding guideline does not provide sequencing direction, any one of the diagnoses may be sequenced first." "When the physician has documented what appears to be a current diagnosis in the body of the record, but has not included the diagnosis in the final diagnostic statement, the physician should be asked whether the diagnosis should be added." (Source Coding Clinic 2 QTR90. p3-4) VALDEZ
== END 2019-12-05 14:30 | DRG 540 ==
LOC: ED 09:37 → SUATTDRO 14:34 → 2N 15:04 → SUATTDRO 15:44 → 3N 11-28 14:39

== ENCOUNTER 2019-12-21 14:25 | Inpatient (IN) ==
[2019-12-21 15:49] LABS: Basophils # (auto) 0.02 K/uL (0-0.2); Basophils % (auto) 0.3 %; Eosinophils # (auto) 0.01 K/uL (0-0.5); Eosinophils % (auto) 0.1 %; Hematocrit (blood only) 31.8 % (37-47); Hemoglobin 10.3 g/dL (12.0-16.0); Immature Granulocytes # (auto) 0.04 K/uL (0.00-0.02); Immature Granulocytes % (auto) 0.5 %; Lymphocytes # (auto) 0.65 K/uL (1.2-3.4); Lymphocytes % (auto) 8.9 %; Mean Corpuscular Hemoglobin 29.9 pg (25-34); Mean Corpuscular Hgb Conc 32.4 g/dL (32-36); Mean Corpuscular Volume 92.4 fL (80-100); Mean Platelet Volume 9.4 fL (7.4-10.4); Monocytes # (auto) 0.95 K/uL (0.11-0.59); Neutrophils # (auto) 5.63 K/uL (1.4-6.5); Neutrophils % (auto) 77.2 %; Platelet Count 167 K/uL (130-400); RDW Coefficient of Variation 18.4 % (11.5-14.5); RDW Standard Deviation 62.3 fL (36.4-46.3); Red Blood Count 3.44 M/uL (4.2-5.4)
--- NOTE | 2019-12-21 15:50 | XRay Report ---
XR chest 1V portable HISTORY: 89 years-old Female SEPSIS acute sepsis COMPARISON: Chest radiograph 12/03/2019, chest CT 12/04/2019 TECHNIQUE: Portable AP view of the chest FINDINGS: Cardiac silhouette is enlarged, unchanged. Calcified plaque of the thoracic aortic arch. Left subclav mauricio pacer. No pneumothorax. Unchanged graded bibasilar densities compatible with pleural effusions an d bibasilar consolidation. Large hiatal hernia with dilated esophagus. Pulmonary vascular congestion with mild interstitial coarsening. These findings appear similar to the comparison study. Degenerativ e changes of the shoulders and spine. IMPRESSION: 1. Cardiomegaly and pulmonary vascular congestion with probable mild pulmonary edema. 2. Persistent pleural effusions with bibasilar consolidation suggestive of atelectasis or pneumonia. 3. Large hiatal hernia. ACT 112: Negative or not required by law. The above report was generated using voice recognition software. It may contain grammatical, syntax o r spelling errors. Electronically signed by: Edwin Fajardo M.D. 12/21/2019 3:48 PM
[2019-12-21 16:00] LABS: INR 1.4 (0.9-1.1); Partial Thromboplastin Ratio 1.3; Partial Thromboplastin Time 36.5 Seconds (21.0-31.0); Prothrombin Time 14.1 Seconds (9.0-12.0)
[2019-12-21 16:04] LABS: Albumin Level 2.7 gm/dl (3.4-5.0); BUN Creatinine Ratio 24.5 (10-20); Calcium 8.9 mg/dl (8.5-10.1); Est GFR (African American) 39.5; Est GFR (Non-African American) 34.1; Magnesium 2.1 mg/dl (1.8-2.4)
[2019-12-21 16:06] LABS: Albumin Globulin Ratio 0.8 (0.9-2); Bilirubin,Total 0.4 mg/dl (0.2-1); Globulin 3.6 gm/dl (2.5-4.0); Total Protein 6.3 gm/dl (6.4-8.2)
--- NOTE | 2019-12-21 16:13 | Electrocardiogram Report ---
Test Reason : Blood Pressure : / mmHG Vent. Rate : 094 BPM Atrial Rate : 312 BPM P-R Int : 000 ms QRS Dur : 094 ms QT Int : 372 ms P-R-T Axes : 000 036 270 degrees QTc Int : 465 ms Poor data quality, interpretation may be adversely affected Atrial fibrillation Low voltage QRS Septal infarct , age undetermined Abnormal ECG When compared with ECG of 27-NOV-2019 10:49, Electronic ventricular pacemaker no longer present Confirmed by Casey Albrecht ([id number]) on 12/21/2019 4:13:04 PM Referred By: ROSA ZAZUETA Confirmed By:Casey Albrecht
[2019-12-21 16:48] LABS: Influenza A virus by PCR Neg for Influ A (Neg); Influenza B virus by PCR Neg for Influ B (Neg)
[2019-12-21] MEDS ORDERED: CEFEPIME 2,000 MG/20 ML VIAL IV STA (17:08)
[2019-12-21] MEDS ORDERED: FUROSEMIDE 20 MG in SYRINGE 0 ML IV ONE (17:24)
[2019-12-21] MEDS ORDERED: FUROSEMIDE 40 MG/4 ML VIAL IV ONE (17:32)
[2019-12-21 17:39] LABS: Appearance Urine Cloudy (Clear); Bacteria Urine Automated Negative (Negative); Bilirubin Urine Negative (Negative); Blood Urine Negative (Negative); Color Urine Dark Yellow; Epithelial Cell Urine Auto >30 /lpf (0-5); Glucose Urine UA Negative (Negative); Ketones Urine Negative (Negative); Leukocyte Esterase Urine Trace (Negative); Nitrite Urine Negative (Negative); Protein Urine 1+ (Negative); RBC Urine Automated 0-4 /hpf (0-4); Specific Gravity Urine 1.025 (1.000-1.030); Urobilinogen Urine Negative (Negative)
[2019-12-21 17:57] LABS: Cast Urine Automated 0 /lpf (0-5); Renal Epithelial Cells Urine 0-5 /lpf (0-5)
--- NOTE | 2019-12-21 20:23 | Emergency Department Note ---
Entered by Jess Clemens acting as a scribe for Rocael Thomas MD History of Present Illness General Chief complaint: Shortness of Breath/Dyspnea Stated complaint: respiratory difficulty Time Seen by Provider: 12/21/19 14:27 Source: patient History of Present Illness Provider complaint: Shortness of Breath/Dyspnea Onset (ago): day(s) 3 Location: chest Relieved By: + none Exacerbated By: + none Associated symptoms: + denies other symptoms (Abdominal pain) and + cough; no chest pain and no nausea/vomiting The patient is a 89 year old female w/ PMHx of A-fib, CKD, DVT, dyslipidemia, HTN, hypothyroid, osteoporosis, pacemaker, Parkinson disease, sick sinus syndrome, TIA, osteomyelitis, UTI, metabolic encephalopathy, peripheral artery disease, sepsis, tonsillectomy, and adenoidectomy who presents to the ED w/ CC of shortness of breath/dyspnea beginning 3 days ago. The patient's family notes that the patient resides at [facility] and they did a breathing treatm ent and chest XRAY and are placing her on an antibiotic. The patient states that her symptoms are not relieved nor exacerbated by anything specific. The patient reports experiencing a cough but denies any abdominal or chest pain or nausea/vomiting. The patient notes that she does not normally wear oxygen at home and did get a flu shot. Home Medications Home Medications Medication Instructions Recorded Confirmed Type acetaminophen 325 mg capsule 650 mg PO Q6H PRN cap MDD 3 GMS 07/11/18 12/21/19 History APAP/24 HOURS clopidogrel 75 mg tablet 75 mg PO QAM tab 07/11/18 12/21/19 History ferrous sulfate 325 mg (65 mg 325 mg PO BID tab 07/11/18 12/21/19 History iron) tablet loratadine 10 mg tablet 10 mg PO QAM 07/11/18 12/21/19 History Eliquis 2.5 mg PO BID 06/21/19 12/21/19 History ascorbic acid (vitamin C) [Vitamin 250 mg PO BID 06/21/19 12/21/19 History C] cholecalciferol (vitamin D3) 1,000 unit PO QAM 06/21/19 12/21/19 History [Vitamin D3] magnesium hydroxide [Milk of 30 ml PO DIRECTED PRN 06/21/19 12/21/19 History Magnesia] sodium chloride [Saline Nasal] 2 spray INTRANASAL Q24H PRN 06/21/19 12/21/19 History atenolol 50 mg PO BID #60 tab 06/26/19 12/21/19 Rx docusate sodium 100 mg PO BID #60 cap 11/10/19 12/21/19 Rx atorvastatin 40 mg PO QPM 11/27/19 12/21/19 History cyclosporine 1 drp OPB BID 11/27/19 12/21/19 History famotidine 20 mg PO BID 11/27/19 12/21/19 History potassium chloride 20 meq PO QAM 11/27/19 12/21/19 History Lactobacillus acidoph-L.bulgar 4 tab PO QID 12/21/19 12/21/19 History [Floranex] albuterol sulfate 2.5 mg INHALATION Q2H PRN 12/21/19 12/21/19 History albuterol sulfate 2.5 mg INHALATION QID 12/21/19 12/21/19 History bisacodyl [Dulcolax (bisacodyl)] 10 mg MA DIRECTED PRN 12/21/19 12/21/19 History cefepime 500 mg IM Q24H 12/21/19 12/21/19 History levofloxacin 750 mg PO Q2D 12/21/19 12/21/19 History levothyroxine 112 mcg PO DAILY 12/21/19 12/21/19 History lidocaine HCl See Rx Instructions .ROUTE .COMPLEX 12/21/19 12/21/19 History multivitamin,cb-dbpv-hffmhnnz 1 tab PO QAM 12/21/19 12/21/19 History [Therems-M] omega 5-kwt-qaw-fish oil [Fish Oil] 1 cap PO QAM 12/21/19 12/21/19 History oxycodone 5 mg PO BID 12/21/19 12/21/19 History sodium phosphates [Fleet Enema] 118 ml MA DIRECTED PRN 12/21/19 12/21/19 History tramadol 100 mg PO Q6H PRN 12/21/19 12/21/19 History Allergies Allergy/AdvReac Type Severity Reaction Status Date / Time amoxicillin Allergy Mild Rash Verified 12/21/19 15:46 Past Med/Surg History Medical History A-fib Born in [facility] (Chronic) Chronic kidney disease (Chronic) Chronic osteomyelitis (Chronic) Cellulitis. Second toe looking possible early stages of ischemic necrosis. Wounds on toes 1-4. xray unchanged. continue IV antibiotics. discussed with daughter on phone. Only way to effectively treat big toe osteo is with amputation. lesser to wounds likely impacted by vascular disease. consider transmet or BKA as she is nonambulatory. Daughter to discuss with siblings but does not appear to be in favor of surgery at this time. Big toe osteo and wounds of lesser toes could contribute to recurrent cellulitis. PSS DVT (deep venous thrombosis) (Chronic) Dyslipidemia (Chronic) E. coli septicemia Encounter for colonoscopy due to history of adenomatous colonic polyps (Chronic) Exploratory laparotomy scar (Chronic) Gram-negative bacteremia (Acute) HTN (hypertension) (Chronic) Hypothyroid (Chronic) Metabolic encephalopathy Osteoporosis (Chronic) Pacemaker Parkinson disease (Chronic) Peripheral arterial disease (Chronic) Sepsis (Acute) Sick sinus syndrome TIA (transient ischemic attack) (Chronic) UTI (urinary tract infection) (Acute) Surgical History History of tonsillectomy and adenoidectomy (Chronic) Hx of cardiac pacemaker Family History Other Family history non-contributory Social History Preferred Language: Ukrainian Communication Ability: Impaired Hand Stamper Required: No Beliefs That Will Affect Care: None marital status: / Current Living Situation: [facility] Current Living Situation Comment: [facility] Feels Safe at Home: Yes Smoking Status: Unknown if ever smoked Hx Alcohol Use: No Hx Substance Use: No Review of Systems See HPI for pertinent positives & negatives. and A total of 10 systems reviewed and were otherwise negative Physical Exam Vital Signs Vital Signs - 24 hr 12/21/19 14:27 12/21/19 14:33 12/21/19 14:36 Temperature 36.6 C Temperature Source Oral Pulse Rate 85 92 H 92 H Pulse Rate from SpO2 Sensor 95 H 93 H Pulse Rhythm Regular Pulse Strength Normal Respiratory Rate 26 H 19 26 H Respiratory Effort / Characteristics Spontaneous Accessory Muscle Use Labored Respiratory Depth Retractive Respiratory Pattern Regular Blood Pressure 109/81 109/81 Blood Pressure Mean 90 100 Blood Pressure Position Sitting Pulse Oximetry 98 100 99 Oxygen Delivery Method Nasal Cannula BiPAP BiPAP Oxygen Flow Rate 2 Fraction of Inspired Oxygen Sepsis Recent Fever Within 48 Hours No Sepsis New/Unexplained Change in Mental Status No Sepsis Action Taken by Nursing No Action Required 12/21/19 15:00 12/21/19 15:30 12/21/19 16:00 Temperature Temperature Source Pulse Rate 94 H 96 H 93 H Pulse Rate from SpO2 Sensor 98 H 95 H 93 H Pulse Rhythm Pulse Strength Respiratory Rate 24 23 19 Respiratory Effort / Characteristics Non-Labored Spontaneous Short of Breath Respiratory Depth Normal Respiratory Pattern Regular Blood Pressure Blood Pressure Mean Blood Pressure Position Pulse Oximetry 97 99 99 Oxygen Delivery Method BiPAP BiPAP Oxygen Flow Rate Fraction of Inspired Oxygen 30 Sepsis Recent Fever Within 48 Hours Sepsis New/Unexplained Change in Mental Status Sepsis Action Taken by Nursing 12/21/19 16:01 12/21/19 16:07 12/21/19 16:08 Temperature Temperature Source Pulse Rate 88 94 H 94 H Pulse Rate from SpO2 Sensor 92 H 93 H Pulse Rhythm Pulse Strength Respiratory Rate 20 22 19 Respiratory Effort / Characteristics Respiratory Depth Respiratory Pattern Blood Pressure 128/74 Blood Pressure Mean 109 Blood Pressure Position Pulse Oximetry 99 99 99 Oxygen Delivery Method BiPAP BiPAP Oxygen Flow Rate Fraction of Inspired Oxygen Sepsis Recent Fever Within 48 Hours Sepsis New/Unexplained Change in Mental Status Sepsis Action Taken by Nursing 12/21/19 16:30 12/21/19 16:31 12/21/19 17:00 Temperature Temperature Source Pulse Rate 90 94 H 88 Pulse Rate from SpO2 Sensor 87 91 H 90 Pulse Rhythm Pulse Strength Respiratory Rate 22 19 26 H Respiratory Effort / Characteristics Respiratory Depth Respiratory Pattern Blood Pressure 118/65 105/72 Blood Pressure Mean 76 87 Blood Pressure Position Pulse Oximetry 98 99 99 Oxygen Delivery Method BiPAP Oxygen Flow Rate Fraction of Inspired Oxygen Sepsis Recent Fever Within 48 Hours Sepsis New/Unexplained Change in Mental Status Sepsis Action Taken by Nursing 12/21/19 17:01 12/21/19 17:30 12/21/19 17:31 Temperature Temperature Source Pulse Rate 88 83 92 H Pulse Rate from SpO2 Sensor 89 81 86 Pulse Rhythm Pulse Strength Respiratory Rate 24 17 19 Respiratory Effort / Characteristics Respiratory Depth Respiratory Pattern Blood Pressure 115/69 Blood Pressure Mean 89 Blood Pressure Position Pulse Oximetry 99 98 97 Oxygen Delivery Method BiPAP BiPAP Oxygen Flow Rate Fraction of Inspired Oxygen Sepsis Recent Fever Within 48 Hours Sepsis New/Unexplained Change in Mental Status Sepsis Action Taken by Nursing 12/21/19 18:00 12/21/19 19:00 12/21/19 19:39 Temperature Temperature Source Pulse Rate 88 84 Pulse Rate from SpO2 Sensor 89 Pulse Rhythm Pulse Strength Respiratory Rate 18 18 Respiratory Effort / Characteristics Non-Labored Spontaneous Respiratory Depth Normal Respiratory Pattern Regular Blood Pressure 120/76 Blood Pressure Mean 95 Blood Pressure Position Pulse Oximetry 98 98 95 Oxygen Delivery Method BiPAP Room Air Oxygen Flow Rate Fraction of Inspired Oxygen 30 Sepsis Recent Fever Within 48 Hours Sepsis New/Unexplained Change in Mental Status Sepsis Action Taken by Nursing 12/21/19 19:56 Temperature Temperature Source Pulse Rate 84 Pulse Rate from SpO2 Sensor Pulse Rhythm Pulse Strength Respiratory Rate 24 Respiratory Effort / Characteristics Respiratory Depth Respiratory Pattern Blood Pressure 120/76 Blood Pressure Mean Blood Pressure Position Pulse Oximetry 95 Oxygen Delivery Method Room Air Oxygen Flow Rate Fraction of Inspired Oxygen Sepsis Recent Fever Within 48 Hours Sepsis New/Unexplained Change in Mental Status Sepsis Action Taken by Nursing GENERAL: Well nourished, moderate distress and tachypneic, nasal cannula in place, non-toxic. EYE EXAM: Normal conjunctiva. PERRL, no anisocoria and EOM's grossly intact w/o pain. OROPHARYNX: Moist mucous membranes. Grossly normal dentition. NECK: Supple, no nuchal rigidity, no adenopathy, non-tender. No signs of meningismus. LUNGS: Decreased breath sounds right base. Scattered coarse breath sounds left chest. Tachypneic with shallow breaths. HEART: NSR, no MRG. ABDOMEN: Abdomen soft, non-tender, normo-active bowel sounds, no masses, no rebound or guarding. BACK: No CVA TTP. SKIN: No rashes and no bruising. UPPER EXTREMITIES: Upper extremities are grossly normal. Diffusely edematous. LOWER EXTREMITIES: No pitting edema. No calf pain. Well healing scars over toes. NEURO EXAM: A&O x3, cranial nerves II-XII grossly intact, normal speech, moves all 4 extremities on command w/o issue. Course Course 1438: Past medical records reviewed. The patient was evaluated in room C03. A complete history and physical exam was performed. 1440: Continuous Cardiac Monitoring: An order was placed for continuous cardiac monitoring. The monitor shows a rate of 94 with atrial flutter. 1604: I reevaluated and discussed test results with the patient. The patient looks more comfortable on BiPAP. 1834: I spoke with Dr. Bell- Hospitalist about the patient's case and he will accept the patient for further evaluation. Administered Medications Discontinued Medications Furosemide (Lasix) Confirm Administered Dose 40 mg IV .STK-MED ONE Stop: 12/21/19 17:33 Last Admin: 12/21/19 17:36 Dose: 20 mg Documented by: [id number] Cefepime HCl (Maxipime) 2,000 mg in 20 mls @ 5 mls/min IV NOW STA; Protocol Stop: 12/21/19 17:11 Last Admin: 12/21/19 17:36 Dose: 5 mls/min Documented by: [id number] Furosemide 20 mg/ Syringe 2 mls @ 4 mls/min IV ONE ONE Stop: 12/21/19 17:25 Last Admin: 12/21/19 17:36 Dose: Not Given Documented by: [id number] Critical Care Time Critical Care Time: Yes Total Critical Care Time: 82 I have personally spent approximately 82 minutes of critical care time in the direct management of this patient. This includes bedside care, interpretation of diagnostic studies, and testing, discussion with consultants, patient, and family members, and other required patient management activities. This approximate 82 minutes is in excess of all separately billable procedures. Medical Decision Making Differential Diagnosis Differential diagnosis: Etiologies such as infections, reactive airway disease, COPD, pneumonia, pleural effusion, pulmonary edema, ARDS, pneumothorax, CHF, cardiac ischemia, cardiac tamponade, dysrhythmia, anemia, pulmonary embolism, musculoskeletal, gastrointestinal process, as well as others were entertained. Medical Records Attestation: I reviewed the patient's medical records. Home Medications Current Medication List: was personally reviewed by me Laboratory Data Attestation: I reviewed the patient's lab results. Result diagrams: 12/21/19 15:37 12/21/19 15:37 Lab Results 12/21/19 12/21/19 12/21/19 Range/Units 15:37 15:37 15:37 WBC 7.30 (4.8-10.8) K/uL RBC 3.44 L (4.2-5.4) M/uL Hgb 10.3 L (12.0-16.0) g/dL Hct 31.8 L (37-47) % MCV 92.4 (80-100) fL MCH 29.9 (25-34) pg MCHC 32.4 (32-36) g/dL RDW Std Deviation 62.3 H (36.4-46.3) fL RDW Coeff of Stephani 18.4 H (11.5-14.5) % Plt Count 167 (130-400) K/uL MPV 9.4 (7.4-10.4) fL Immature Gran % (Auto) 0.5 % Neut % (Auto) 77.2 % Lymph % (Auto) 8.9 % [place] % (Auto) 13.0 % Eos % (Auto) 0.1 % Baso % (Auto) 0.3 % Immature Gran # (Auto) 0.04 H (0.00-0.02) K/uL Neut # (Auto) 5.63 (1.4-6.5) K/uL Lymph # (Auto) 0.65 L (1.2-3.4) K/uL [place] # (Auto) 0.95 H (0.11-0.59) K/uL Eos # (Auto) 0.01 (0-0.5) K/uL Baso # (Auto) 0.02 (0-0.2) K/uL PT 14.1 H (9.0-12.0) Seconds INR 1.4 H (0.9-1.1) APTT 36.5 H (21.0-31.0) Seconds PTT Ratio 1.3 Sodium (136-145) mmol/L Potassium (3.5-5.1) mmol/L Chloride (98-107) mmol/L Carbon Dioxide (21-32) mmol/L Anion Gap (3-11) BUN (7-18) mg/dl Creatinine (0.6-1.2) mg/dl Est Cr Clr Drug Dosing ml/min Est GFR ( Amer) Est GFR (Non-Af Amer) BUN/Creatinine Ratio (10-20) Glucose (70-99) mg/dl Lactate (0.4-2.0) mmol/L Calcium (8.5-10.1) mg/dl Magnesium (1.8-2.4) mg/dl Total Bilirubin (0.2-1) mg/dl AST (15-37) U/L ALT (12-78) U/L Alkaline Phosphatase (45-117) U/L Total Protein (6.4-8.2) gm/dl Albumin (3.4-5.0) gm/dl Globulin (2.5-4.0) gm/dl Albumin/Globulin Ratio (0.9-2) Procalcitonin 0.20 (0-0.5) ng/ml Urine Color Urine Appearance (Clear) Urine pH (4.5-7.5) Ur Specific [place] (1.000-1.030) Urine Protein (Negative) Urine Glucose (UA) (Negative) Urine Ketones (Negative) Urine Blood (Negative) Urine Nitrite (Negative) Urine Bilirubin (Negative) Urine Urobilinogen (Negative) Ur Leukocyte Esterase (Negative) Urine WBC (Auto) (0-5) /hpf Urine RBC (Auto) (0-4) /hpf U Hyaline Cast (Auto) (0-5) /lpf U Epithel Cells (Auto) (0-5) /lpf Urine Bacteria (Auto) (Negative) Ur Renal Epithelial Cell (0-5) /lpf Nasal Screen MRSA (PCR) (Negative) Influenza Type A (PCR) (Neg) Influenza Type B (PCR) (Neg) 12/21/19 12/21/19 12/21/19 Range/Units 15:37 16:05 17:04 WBC (4.8-10.8) K/uL RBC (4.2-5.4) M/uL Hgb (12.0-16.0) g/dL Hct (37-47) % MCV (80-100) fL MCH (25-34) pg MCHC (32-36) g/dL RDW Std Deviation (36.4-46.3) fL RDW Coeff of Stephani (11.5-14.5) % Plt Count (130-400) K/uL MPV (7.4-10.4) fL Immature Gran % (Auto) % Neut % (Auto) % Lymph % (Auto) % [place] % (Auto) % Eos % (Auto) % Baso % (Auto) % Immature Gran # (Auto) (0.00-0.02) K/uL Neut # (Auto) (1.4-6.5) K/uL Lymph # (Auto) (1.2-3.4) K/uL [place] # (Auto) (0.11-0.59) K/uL Eos # (Auto) (0-0.5) K/uL Baso # (Auto) (0-0.2) K/uL PT (9.0-12.0) Seconds INR (0.9-1.1) APTT (21.0-31.0) Seconds PTT Ratio Sodium 145 (136-145) mmol/L Potassium 4.0 (3.5-5.1) mmol/L Chloride 116 H (98-107) mmol/L Carbon Dioxide 24 (21-32) mmol/L Anion Gap 5.0 (3-11) BUN 34 H (7-18) mg/dl Creatinine 1.37 H (0.6-1.2) mg/dl Est Cr Clr Drug Dosing 22.0 ml/min Est GFR ( Amer) 39.5 Est GFR (Non-Af Amer) 34.1 BUN/Creatinine Ratio 24.5 H (10-20) Glucose 143 H (70-99) mg/dl Lactate 3.3 H* (0.4-2.0) mmol/L Calcium 8.9 (8.5-10.1) mg/dl Magnesium 2.1 (1.8-2.4) mg/dl Total Bilirubin 0.4 (0.2-1) mg/dl AST 30 (15-37) U/L ALT 25 (12-78) U/L Alkaline Phosphatase 95 (45-117) U/L Total Protein 6.3 L (6.4-8.2) gm/dl Albumin 2.7 L (3.4-5.0) gm/dl Globulin 3.6 (2.5-4.0) gm/dl Albumin/Globulin Ratio 0.8 L (0.9-2) Procalcitonin (0-0.5) ng/ml Urine Color Urine Appearance (Clear) Urine pH (4.5-7.5) Ur Specific [place] (1.000-1.030) Urine Protein (Negative) Urine Glucose (UA) (Negative) Urine Ketones (Negative) Urine Blood (Negative) Urine Nitrite (Negative) Urine Bilirubin (Negative) Urine Urobilinogen (Negative) Ur Leukocyte Esterase (Negative) Urine WBC (Auto) (0-5) /hpf Urine RBC (Auto) (0-4) /hpf U Hyaline Cast (Auto) (0-5) /lpf U Epithel Cells (Auto) (0-5) /lpf Urine Bacteria (Auto) (Negative) Ur Renal Epithelial Cell (0-5) /lpf Nasal Screen MRSA (PCR) (Negative) Influenza Type A (PCR) Neg for Influ A (Neg) Influenza Type B (PCR) Neg for Influ B (Neg) 12/21/19 12/21/19 12/21/19 Range/Units 17:28 17:28 19:21 WBC (4.8-10.8) K/uL RBC (4.2-5.4) M/uL Hgb (12.0-16.0) g/dL Hct (37-47) % MCV (80-100) fL MCH (25-34) pg MCHC (32-36) g/dL RDW Std Deviation (36.4-46.3) fL RDW Coeff of Stephani (11.5-14.5) % Plt Count (130-400) K/uL MPV (7.4-10.4) fL Immature Gran % (Auto) % Neut % (Auto) % Lymph % (Auto) % [place] % (Auto) % Eos % (Auto) % Baso % (Auto) % Immature Gran # (Auto) (0.00-0.02) K/uL Neut # (Auto) (1.4-6.5) K/uL Lymph # (Auto) (1.2-3.4) K/uL [place] # (Auto) (0.11-0.59) K/uL Eos # (Auto) (0-0.5) K/uL Baso # (Auto) (0-0.2) K/uL PT (9.0-12.0) Seconds INR (0.9-1.1) APTT (21.0-31.0) Seconds PTT Ratio Sodium (136-145) mmol/L Potassium (3.5-5.1) mmol/L Chloride (98-107) mmol/L Carbon Dioxide (21-32) mmol/L Anion Gap (3-11) BUN (7-18) mg/dl Creatinine (0.6-1.2) mg/dl Est Cr Clr Drug Dosing ml/min Est GFR ( Amer) Est GFR (Non-Af Amer) BUN/Creatinine Ratio (10-20) Glucose (70-99) mg/dl Lactate 2.8 H* (0.4-2.0) mmol/L Calcium (8.5-10.1) mg/dl Magnesium (1.8-2.4) mg/dl Total Bilirubin (0.2-1) mg/dl AST (15-37) U/L ALT (12-78) U/L Alkaline Phosphatase (45-117) U/L Total Protein (6.4-8.2) gm/dl Albumin (3.4-5.0) gm/dl Globulin (2.5-4.0) gm/dl Albumin/Globulin Ratio (0.9-2) Procalcitonin (0-0.5) ng/ml Urine Color Dark Yellow Urine Appearance Cloudy A (Clear) Urine pH 5.0 (4.5-7.5) Ur Specific [place] 1.025 (1.000-1.030) Urine Protein 1+ H (Negative) Urine Glucose (UA) Negative (Negative) Urine Ketones Negative (Negative) Urine Blood Negative (Negative) Urine Nitrite Negative (Negative) Urine Bilirubin Negative (Negative) Urine Urobilinogen Negative (Negative) Ur Leukocyte Esterase Trace H (Negative) Urine WBC (Auto) 1-5 (0-5) /hpf Urine RBC (Auto) 0-4 (0-4) /hpf U Hyaline Cast (Auto) 0 (0-5) /lpf U Epithel Cells (Auto) >30 H (0-5) /lpf Urine Bacteria (Auto) Negative (Negative) Ur Renal Epithelial Cell 0-5 (0-5) /lpf Nasal Screen MRSA (PCR) Negative (Negative) Influenza Type A (PCR) (Neg) Influenza Type B (PCR) (Neg) Imaging Data Radiologist's Impression: Radiology results as stated below per my review and the radiologist's interpretation: XR chest 1V portable HISTORY: 89 years-old Female SEPSIS acute sepsis COMPARISON: Chest radiograph 12/03/2019, chest CT 12/04/2019 TECHNIQUE: Portable AP view of the chest FINDINGS: Cardiac silhouette is enlarged, unchanged. Calcified plaque of the thoracic aortic arch. Left subclavian pacer. No pneumothorax. Unchanged graded bibasilar densities compatible with pleural effusions and bibasilar consolidation. Large hiatal hernia with dilated esophagus. Pulmonary vascular congestion with mild interstitial coarsening. These findings appear similar to the comparison study. Degenerative changes of the shoulders and spine. IMPRESSION: 1. Cardiomegaly and pulmonary vascular congestion with probable mild pulmonary edema. 2. Persistent pleural effusions with bibasilar consolidation suggestive of atelectasis or pneumonia. 3. Large hiatal hernia. ACT 112: Negative or not required by law. The above report was generated using voice recognition software. It may contain grammatical, syntax or spelling errors. Electronically signed by: Edwin Fajardo M.D. 12/21/2019 3:48 PM ECG Data Attestation: I personally reviewed and interpreted this ECG as follows: Indication: + SOB/dyspnea Rate (beats per minute): 94 Rhythm: + atrial flutter ECG Intervals/blocks: + Normal QRS ECG ST segments: + T-wave inversions (Lead 3) Comparison ECG Date: from (11/27/2019) Change: the following changes noted (Atrial flutter is new) Blood Pressure Blood Pressure Findings: Normal blood pressure Blood Pressure Disposition: further management by hospitalist RYAN Brown The patient is a 89 year old female w/ PMHx of A-fib, CKD, DVT, dyslipidemia, HTN, hypothyroid, osteoporosis, pacemaker, Parkinson disease, sick sinus syndrome, TIA, osteomyelitis, UTI, metabolic encephalopathy, peripheral artery disease, sepsis, tonsillectomy, and adenoidectomy who presents to the ED w/ CC of shortness of breath/dyspnea beginning 3 days ago. Patient was seen in eval at the bedside. The patient did present with concern for respiratory distress the patient did have shallow breaths decreased breath sounds and crackles. The patient was placed on BiPAP. I was concerned with the possibility of maybe some mucus plugging which might of caused some hypoxia as it was reported she was in the 70s prior to arrival. The patient does not chronically on oxygen. The patient blood work showed a normal white count. Flu was negative so I did start antibiotics due to concern for possibility of infection. Patient's chest x-ray does show that she does have some pulmonary edema and pleural effusions. Due to prior notes as an inpatient they did recommend some diuretics which were ordered in order to help with her fluid retention within the lungs. The patient did have a slightly elevated lactate which may have been due to hypoxia and increased work of breathing. By the time that the hospitalist had seen the patient the patient was now off BiPAP and was satting at 93% on room air. Patient was admitted to the medicine service. Impression & Plan Respiratory failure with hypoxia, Osteomyelitis, Pleural effusion, SOB (shortness of breath) Discharge Plan Visit Data Chief Complaint: Shortness of Breath/Dyspnea Stated Complaint: respiratory difficulty ED Provider: Rocael Thomas Discharge Problem: Respiratory failure with hypoxia, Osteomyelitis, Pleural effusion, SOB (shortness of breath) Discharge Instructions Interventions: ED Discharge Assessment Last Done: 12/21/19 19:56 Forms Stand Alone Forms: [facility] Prescriptions Prescriptions: No Action acetaminophen 325 mg capsule 650 mg PO Q6H MDD 3 GMS APAP/24 HOURS PRN (Reason: Fever Or Pain) RF: 0 clopidogrel 75 mg tablet 75 mg PO QAM RF: 0 ferrous sulfate 325 mg (65 mg iron) tablet 325 mg PO BID RF: 0 loratadine [Claritin] 10 mg tablet 10 mg PO QAM RF: 0 docusate sodium 100 mg Capsule 100 mg PO BID Qty: 60 RF: 0 atorvastatin 40 mg Tablet 40 mg PO QPM RF: 0 famotidine 20 mg Tablet 20 mg PO BID RF: 0 potassium chloride 20 mEq Tablet Extended Release 20 meq PO QAM RF: 0 cyclosporine 0.05 % Drops 1 drp OPB BID RF: 0 Eliquis 2.5 mg Tablet 2.5 mg PO BID RF: 0 magnesium hydroxide [Milk of Magnesia] 400 mg/5 mL Suspension 30 ml PO DIRECTED PRN (Reason: Constipation) RF: 0 sodium chloride [Saline Nasal] 0.65 % Aerosol,Maybeury 2 spray INTRANASAL Q24H PRN (Reason: Allergic Rhinitis) RF: 0 ascorbic acid (vitamin C) [Vitamin C] 250 mg Tablet 250 mg PO BID RF: 0 cholecalciferol (vitamin D3) [Vitamin D3] 1,000 unit Tablet,Chewable 1,000 unit PO QAM RF: 0 atenolol 50 mg Tablet 50 mg PO BID Qty: 60 RF: 0 lidocaine HCl 10 mg/mL (1 %) solution See Rx Instructions .ROUTE .COMPLEX RF: 0 cefepime 1 gram recon soln 500 mg IM Q24H RF: 0 albuterol sulfate 2.5 mg /3 mL (0.083 %) Solution For Nebulization 2.5 mg INHALATION Q2H PRN (Reason: Shortness Of Breath Or Wheezing) RF: 0 albuterol sulfate 2.5 mg /3 mL (0.083 %) Solution For Nebulization 2.5 mg INHALATION QID RF: 0 bisacodyl [Dulcolax (bisacodyl)] 10 mg Suppository 10 mg MA DIRECTED PRN (Reason: Constipation) RF: 0 Fleet Enema 19-7 gram/118 mL Enema 118 ml MA DIRECTED PRN (Reason: Constipation) RF: 0 levothyroxine 112 mcg Tablet 112 mcg PO DAILY RF: 0 oxycodone 5 mg tablet 5 mg PO BID RF: 0 Therems-M 27-0.4 mg Tablet 1 tab PO QAM RF: 0 omega 5-ptd-txv-fish oil [Fish Oil] 1,000 mg (120 mg-180 mg) Capsule 1 cap PO QAM RF: 0 tramadol 50 mg tablet 100 mg PO Q6H PRN (Reason: Pain, Severe) RF: 0 levofloxacin 750 mg tablet 750 mg PO Q2D RF: 0 Lactobacillus acidoph-L.bulgar [Floranex] 1 million cell tablet 4 tab PO QID RF: 0 Referrals Referrals: [email or web address],Jorge [Primary Care Provider] - Discharge Problem: Respiratory failure with hypoxia Qualifiers: Chronicity: unspecified Qualified Code(s): J96.91 - Respiratory failure, unspecified with hypoxia Osteomyelitis Qualifiers: Osteomyelitis type: unspecified type Osteomyelitis location: foot Laterality: right Qualified Code(s): M86.9 - Osteomyelitis, unspecified The scribe's documentation has been prepared under my direction and personally reviewed by me in its entirety. I confirm that the note above accurately reflects all work, treatment, procedures, and medical decision making performed by me.
--- NOTE | 2019-12-21 21:00 | History & Physical Report ---
Date of Service December 21, 2019 Assessment & Plan (1) Acute respiratory failure with hypoxia: Suspect secondary to viral URI with mucus plugging. Appears to be saturating well on room air at present but high risk of mucus plugging again overnight. Discussed with respiratory and will keep BiPAP at bedside for when this inevitably happens and she should be monitored on continued pulse oximetry to fern picker when this happens. No wheezing or prior diagnosis to suggest need for steroids but she has felt better on nebs at [facility] which likely helps her cough up the mucus. (2) Acute bronchitis: Viral URI as discussed above. Incentive spirometry, flutter valve, guaifenesin, duonebs, chest percussion therapy. (3) Bilateral pleural effusion: No prior diagnosis of CHF. TTE in June with mild to mod aortic regurg, moderate mitral regurg, moderate to severe tricuspid regurg therefore at risk of pulmonary edema and pleural effusions. No on diuretics as outpatient. Will not given any more doses at present as patient stable and plan to repeat Cr in AM. She does appear to still be hypervolemic on exam and if Cr stable or downtrending consider repeating doses until Cr bump is seen. (4) Healthcare associated bacterial pneumonia: Ruled out. Procalcitonin negative. No focal consolidation noted on CXR. Rhonchi+++ on exam. No double worsening of illness rather the is following usual peak of viral illness and would expect her to possible get worse over the next 1-2 days but should improve after this. She is already on levaquin for chronic suppression of osteomyelitis and gangrenous toes therefore I do not feel additional antibiotics are warranted at this stage unless she she spikes a fever on manifests a bacterial pneumonia in some other way. Will trend procalcitonin to help with this decision. (5) Central sleep apnea: Noted during times of acute illness (6) Chronic osteomyelitis: Continue Levaquin Q2D 750mg PO (7) A-fib: Rate controlled on atenolol. Anticoagulation with apixaban. (8) Cardiac pacemaker in situ: Noted (9) DVT prophylaxis: Continue chronic apixaban 2.5mg BID (10) Discharge planning issues: PT. Return to [facility] once medically stable. History of Present Illness Chief Complaint: Hypoxia Primary Care Provider: [facility] Maria M Victor is an 89 year old female who presents to the ER from [facility] due to acute hypoxia of 70% after upper respiratory symptoms that started on Wednesday (3 days prior to admission). Her symptoms have been getting progressively worse and she has had much more upper airway secretions. CXR taken at [facility] and was relatively equivocal fro PNA (on background of chronic lung changes). She was given duonebs and felt some improvement with these. Initially had planned on getting IM cefepime to start today however this morning her O2 sats went down to 70% (on room air usually). History is limited from the patient due to her dementia, although she appears much more cognitive than when I last admitted her for her foot cellulitis. In the ER she was given a dose of cefepime and lasix 20mg IV and started on BiPAP with quick improvement of her O2 sats to 97%. With regards to her chronic osteomyelitis she is continuing on levaquin possibly lifelong. Family at bedside report no acute changes in this. No cellulitic changes. Allergies Allergy/AdvReac Type Severity Reaction Status Date / Time amoxicillin Allergy Mild Rash Verified 12/21/19 15:46 Home Medications Home Medications Medication Instructions Recorded Confirmed Type acetaminophen 325 mg capsule 650 mg PO Q6H PRN cap MDD 3 GMS 07/11/18 12/21/19 History APAP/24 HOURS clopidogrel 75 mg tablet 75 mg PO QAM tab 07/11/18 12/21/19 History ferrous sulfate 325 mg (65 mg 325 mg PO BID tab 07/11/18 12/21/19 History iron) tablet loratadine 10 mg tablet 10 mg PO QAM 07/11/18 12/21/19 History Eliquis 2.5 mg PO BID 06/21/19 12/21/19 History ascorbic acid (vitamin C) [Vitamin 250 mg PO BID 06/21/19 12/21/19 History C] cholecalciferol (vitamin D3) 1,000 unit PO QAM 06/21/19 12/21/19 History [Vitamin D3] magnesium hydroxide [Milk of 30 ml PO DIRECTED PRN 06/21/19 12/21/19 History Magnesia] sodium chloride [Saline Nasal] 2 spray INTRANASAL Q24H PRN 06/21/19 12/21/19 History atenolol 50 mg PO BID #60 tab 06/26/19 12/21/19 Rx docusate sodium 100 mg PO BID #60 cap 11/10/19 12/21/19 Rx atorvastatin 40 mg PO QPM 11/27/19 12/21/19 History cyclosporine 1 drp OPB BID 11/27/19 12/21/19 History famotidine 20 mg PO BID 11/27/19 12/21/19 History potassium chloride 20 meq PO QAM 11/27/19 12/21/19 History Lactobacillus acidoph-L.bulgar 4 tab PO QID 12/21/19 12/21/19 History [Floranex] albuterol sulfate 2.5 mg INHALATION Q2H PRN 12/21/19 12/21/19 History albuterol sulfate 2.5 mg INHALATION QID 12/21/19 12/21/19 History bisacodyl [Dulcolax (bisacodyl)] 10 mg AK DIRECTED PRN 12/21/19 12/21/19 History cefepime 500 mg IM Q24H 12/21/19 12/21/19 History levofloxacin 750 mg PO Q2D 12/21/19 12/21/19 History levothyroxine 112 mcg PO DAILY 12/21/19 12/21/19 History lidocaine HCl See Rx Instructions .ROUTE .COMPLEX 12/21/19 12/21/19 History multivitamin,uc-twbi-ufdbgnls 1 tab PO QAM 12/21/19 12/21/19 History [Therems-M] omega 9-rce-dak-fish oil [Fish Oil] 1 cap PO QAM 12/21/19 12/21/19 History oxycodone 5 mg PO BID 12/21/19 12/21/19 History sodium phosphates [Fleet Enema] 118 ml AK DIRECTED PRN 12/21/19 12/21/19 History tramadol 100 mg PO Q6H PRN 12/21/19 12/21/19 History Past Med/Surg History Medical History (Updated 12/22/19 @ 03:25 by Nicolas Bell MD) A-fib Born in [facility] (Chronic) Chronic kidney disease (Chronic) Chronic osteomyelitis (Chronic) Cellulitis. Second toe looking possible early stages of ischemic necrosis. Wounds on toes 1-4. xray unchanged. continue IV antibiotics. discussed with daughter on phone. Only way to effectively treat big toe osteo is with amputation. lesser to wounds likely impacted by vascular disease. consider transmet or BKA as she is nonambulatory. Daughter to discuss with siblings but does not appear to be in favor of surgery at this time. Big toe osteo and wounds of lesser toes could contribute to recurrent cellulitis. PSS DVT (deep venous thrombosis) (Chronic) Dyslipidemia (Chronic) E. coli septicemia (Resolved) Encounter for colonoscopy due to history of adenomatous colonic polyps (Chronic) Exploratory laparotomy scar (Chronic) Gram-negative bacteremia (Resolved) HTN (hypertension) (Chronic) Hypothyroid (Chronic) Metabolic encephalopathy Osteoporosis (Chronic) Pacemaker Parkinson disease (Chronic) Peripheral arterial disease (Chronic) Sepsis (Resolved) Sick sinus syndrome TIA (transient ischemic attack) (Chronic) UTI (urinary tract infection) (Acute) Surgical History History of tonsillectomy and adenoidectomy (Chronic) Hx of cardiac pacemaker Family History Other Family history non-contributory Social History Preferred Language: Irish Communication Ability: Impaired 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: No Beliefs That Will Affect Care: None marital status: / Current Living Situation: Longterm Current Living Situation Comment: [facility] Other Information That Helps Us Care for You: No Feels Safe at Home: Yes Safety Concerns: Feels Safe At This Time Smoking Status: Never smoker Second Hand Exposure: No ; Hx Alcohol Use: No Hx Substance Use: No Review of Systems Review of Systems: Unobtainable due to cognitive status Physical Exam Constitutional: + not well nourished, no acute distress (after taking BiPAP off, sats 93% RA and patient more relaxed) and no altered mental status (at baseline) ENMT: Ears: no external ear abnormality Nose: no external nose abnormality Mouth: + dry oral mucous membranes (mild) Neck: normal visual inspection and trachea midline Respiratory: + cough; no respiratory distress, no labored breathing and does not use accessory muscles Auscultation: + rhonchi (throughout); breath sounds present, no diminished lung sounds and no wheezes Cardiovascular: Rate/Rhythm: regular rate and + irregularly irregular Heart Sounds: no murmur Vessels: no JVD Extremities: normal capillary refill (except on necrotic right toes); no calf tenderness and no pedal edema Gastrointestinal (Abdomen): Inspection/Auscultation: normal bowel sounds Percussion/Palpation: abdomen soft; abdomen nontender, no guarding and abdomen not rigid Musculoskeletal: Grossly moving all 4 limbs without pain Skin: gangrenous toes on right foot without surrounding cellulitic changes Neurologic: moves all extremities, awake and + confused (at baseline) Psychiatric: Orientation: alert; + not oriented x 3 Results & Data Vital Signs (Past 12 Hours) Vital Signs Temp Pulse Resp BP Pulse Ox 12/21/19 19:56 84 24 120/76 95 12/21/19 19:39 95 12/21/19 19:00 84 18 98 12/21/19 18:00 88 18 120/76 98 12/21/19 17:31 92 H 19 97 12/21/19 17:30 83 17 115/69 98 12/21/19 17:01 88 24 99 12/21/19 17:00 88 26 H 105/72 99 12/21/19 16:31 94 H 19 99 12/21/19 16:30 90 22 118/65 98 12/21/19 16:08 94 H 19 99 12/21/19 16:07 94 H 22 128/74 99 12/21/19 16:01 88 20 99 12/21/19 16:00 93 H 19 99 12/21/19 15:30 96 H 23 99 12/21/19 15:00 94 H 24 97 12/21/19 14:36 92 H 26 H 99 12/21/19 14:33 92 H 19 109/81 100 12/21/19 14:27 36.6 C 85 26 H 109/81 98 Diagnostic Findings XR chest 1V portable IMPRESSION: 1. Cardiomegaly and pulmonary vascular congestion with probable mild pulmonary e allie. 2. Persistent pleural effusions with bibasilar consolidation suggestive of atelectasis or pneumonia. 3. Large hiatal hernia. Medications Administered ER meds: Cefepime 2g IV Lasix 20mg IV Code Status & VTE Plan Code Status DNR Intubation if felt she has a reversible medical condition VTE Prophylaxis Plan VTE Prophylaxis will be ordered: Yes PG Care Time/CCT Total # of Minutes Spent Total Time Spent with Patient: Total time spent is greater than 50% in coordination of care (as documented) at patient's floor/unit and/or counseling patient: Coding Level of Care Code 90235 Initial Inpt Care Lvl 3 Diagnoses Acute respiratory failure with hypoxia J96.01 Acute bronchitis J20.9 Bronchitis organism: unspecified organism Bilateral pleural effusion J90 Healthcare associated bacterial pneumonia J15.9 Central sleep apnea G47.31 Chronic osteomyelitis M86.60 A-fib I48.11 Atrial fibrillation type: longstanding persistent Cardiac pacemaker in situ Z95.0 DVT prophylaxis Z29.9 Discharge planning issues Z02.9 (1) Acute bronchitis Bronchitis organism: unspecified organism Qualified Code(s): J20.9 - Acute bronchitis, unspecified (2) A-fib Atrial fibrillation type: longstanding persistent Qualified Code(s): I48.11 - Longstanding persistent atrial fibrillation
[2019-12-21] MEDS ORDERED: ONDANSETRON INJ 2 MG/ML 2 ML VIAL IV PRN (21:12)
[2019-12-21] MEDS ORDERED: SODIUM CHLORIDE 0.65% NA SOLN 45 ML (OCEAN) PRN (21:12)
[2019-12-21] MEDS ORDERED: NON-FORMULARY MEDICATION (Acetaminophen 650 MG) PO PRN (21:12)
[2019-12-21] MEDS ORDERED: POLYETHYLENE (MIRALAX) 17 GM PACK PO PRN (21:12)
[2019-12-21] MEDS ORDERED: ACETAMINOPHEN 325 MG TAB PO PRN (21:12)
[2019-12-21] MEDS ORDERED: ALBUT/IPRATROP 3MG/0.5MG NEB 3 ML VIAL NEB PRN (21:43)
[2019-12-21] MEDS: levoFLOXacin 750 MG TAB PO SCH (22:20)
[2019-12-21] MEDS: DOCUSATE SODIUM 100 MG CAP PO SCH (22:20)
[2019-12-21] MEDS: FAMOTIDINE 20 MG TAB PO SCH (22:21)
[2019-12-21] MEDS: ATORVASTATIN 40 MG TAB PO SCH (22:22)
[2019-12-21] MEDS: APIXABAN 2.5 MG TAB PO SCH (22:22)
[2019-12-21] MEDS: ATENOLOL 50 MG TABLET PO SCH (22:22)
[2019-12-21] MEDS: LACTOBACILLUS ACIDOPHILUS (FLORANEX) TAB PO SCH (22:23)
[2019-12-22] MEDS: LEVOTHYROXINE SODIUM 112 MCG TABLET PO SCH (05:21)
[2019-12-22 06:41] LABS: Basophils # (auto) 0.02 K/uL (0-0.2); Basophils % (auto) 0.3 %; Eosinophils # (auto) 0.02 K/uL (0-0.5); Eosinophils % (auto) 0.3 %; Hematocrit (blood only) 31.4 % (37-47); Hemoglobin 10.3 g/dL (12.0-16.0); Immature Granulocytes # (auto) 0.04 K/uL (0.00-0.02); Immature Granulocytes % (auto) 0.6 %; Lymphocytes # (auto) 0.63 K/uL (1.2-3.4); Mean Corpuscular Hemoglobin 29.9 pg (25-34); Mean Corpuscular Hgb Conc 32.8 g/dL (32-36); Mean Platelet Volume 9.3 fL (7.4-10.4); Monocytes # (auto) 0.78 K/uL (0.11-0.59); Monocytes % (auto) 12.4 %; Neutrophils % (auto) 76.4 %; Platelet Count 142 K/uL (130-400); RDW Coefficient of Variation 18.1 % (11.5-14.5); RDW Standard Deviation 60.2 fL (36.4-46.3); Red Blood Count 3.45 M/uL (4.2-5.4); White Blood Count 6.29 K/uL (4.8-10.8)
[2019-12-22 07:13] LABS: Albumin Level 2.4 gm/dl (3.4-5.0); BUN Creatinine Ratio 28.6 (10-20); Calcium 8.8 mg/dl (8.5-10.1); Creatinine Clr Calc Pharmacy 25.1 ml/min; Est GFR (African American) 46.9; Est GFR (Non-African American) 40.4; Potassium 3.9 mmol/L (3.5-5.1)
[2019-12-22 07:15] LABS: Albumin Globulin Ratio 0.7 (0.9-2); Bilirubin,Total 0.5 mg/dl (0.2-1); Globulin 3.3 gm/dl (2.5-4.0); Total Protein 5.7 gm/dl (6.4-8.2)
[2019-12-22] MEDS: ALBUT/IPRATROP 3MG/0.5MG NEB 3 ML VIAL NEB SCH ×4 (07:16→18:54)
[2019-12-22] MEDS: LORATADINE 10 MG TAB PO SCH (09:27)
[2019-12-22] MEDS: DOCUSATE SODIUM 100 MG CAP PO SCH ×2 (09:27→20:12)
[2019-12-22] MEDS: APIXABAN 2.5 MG TAB PO SCH ×2 (09:28→20:13)
[2019-12-22] MEDS: FERROUS SULFATE 325 MG TAB PO SCH ×2 (09:28→20:13)
[2019-12-22] MEDS: LACTOBACILLUS ACIDOPHILUS (FLORANEX) TAB PO SCH ×4 (09:28→20:11)
[2019-12-22] MEDS: POTASSIUM CHLORIDE 20 MEQ TABCR PO SCH (09:29)
[2019-12-22] MEDS: guaiFENesin 600 MG TABCR PO SCH ×2 (09:29→20:12)
[2019-12-22] MEDS: CEROVITE ADV FORMULA TAB PO SCH (09:30)
[2019-12-22] MEDS: CLOPIDOGREL BISULFATE 75 MG TAB PO SCH (09:30)
[2019-12-22] MEDS: OMEGA-3 (PURIFIED FISH OIL) 1 GM CAP PO SCH (09:30)
[2019-12-22] MEDS: FAMOTIDINE 20 MG TAB PO SCH ×2 (09:30→20:14)
[2019-12-22] MEDS: ATENOLOL 50 MG TABLET PO SCH ×2 (09:31→20:12)
[2019-12-22] MEDS: ASCORBIC ACID 500 MG TAB PO SCH ×2 (09:31→20:14)
[2019-12-22] MEDS: CHOLECALCIFEROL 1,000 UNITS 25 MCG TAB PO SCH (09:31)
--- NOTE | 2019-12-22 10:50 | Hospitalist Progress Note ---
Date of Service December 22, 2019 Assessment & Plan (1) Acute respiratory failure with hypoxia: Maria M is an 89-year-old female with a past medical history of dementia, atrial fibrillation with a pacemaker, TIA, chronic osteomyelitis, hypothyroidism, hypertension, dyslipidemia, and chronic kidney disease stage III who presented from [facility] with hypoxia to the 70s and 3 days of upper respiratory symptoms. She was admitted for acute hypoxic respiratory failure as below. Acute hypoxic respiratory failure 2/2 viral bronchitis with bilateral pleural effusion She received Lasix, cefepime, and BiPAP in the emergency department with improvement in her saturation to 97%. -No leukocytosis, pro-Niall negative Suspect viral URI/bronchitis with poor reserve. No additional antibiotics indicated at this time. On chronic Levaquin as below No HARVEST MANAGER oxygen requirement, currently on BiPAP/2 L nasal cannula saturating well this morning Incentive spirometry, flutter vest Echo 06/25/2019 showed moderate to severe tricuspid regurg, mild to moderate aortic regurg, moderate mitral regurg with EF 60 to 65%. Received Lasix x1 on admission with clinical improvement. Bibasilar crackles appreciated. Lasix x1 additional dose this afternoon, volume overloaded on exam Chronic osteomyelitis of the right foot History of chronic osteomyelitis and gangrene of right foot/toes Admitted 11/27 to 12/04 for cellulitis and osteo, was found to have ESBL E. coli initially treated with cefepime but converted to levofloxacin due to CKD. Providers discussed medical and surgical options with patient and her family at that time, the patient and her family preferred conservative and medical treatm ent given that she was not in pain and due to medical frailty were concerned about her ability to tolerate surgery. Patient was placed on antibiotic therapy as above with the intention to likely be on long-term treatment with Levaquin with reassessment if her foot became painful. They would like to continue medical treatment and defer any surgical intervention at this time. No signs of cellulitis at this time Atrial fibrillation Continue atenolol 50 mg p.o. twice daily Continue Eliquis 2.5 mg p.o. twice daily Adequate rate control at this time History of TIA Continue atorvastatin 40 mg every afternoon Continue Plavix monotherapy Diet: Regular, pured DVT prophylaxis: DOAC above Disposition: Anticipate discharge back to [facility] when medically stable. Downgrade to Med/Surg today. CODE STATUS: Conditional code, no chest compressions (2) SOB (shortness of breath): (3) Peripheral arterial disease: (4) Dementia: (5) Central sleep apnea: (6) Chronic osteomyelitis: (7) Acute bronchitis: (8) DVT prophylaxis: (9) A-fib: Supervising Physician Co-Signing Physician Notes I personally examined the patient and verified all jacome points of history and exam, discussed case, and agree with decision making with Dr Chavez. Feeling better than when she came in but breathing not yet back to baseline. Vitals noted, in general she is awake and alert pleasant no distress. HEENT normocephalic atraumatic mucous members moist. Lungs are diffuse faint inspiratory crackles and expiratory rhonchi, no accessory muscle use good effort. Acute hypoxic respiratory failureseems to be both a viral bronchitis and acute on chronic HFpEF (likely from the physiologic stress of the bronchitis) -Clearly still no indication for antibiotics with no focal infiltrate and reassuring pro calcitonin. Continue supportive care as it relates to the viral bronchitis -Continue ongoing IV Lasix and close clinical follow-up as it relates to the HFpEF Otherwise as above Stable for medical Subjective Seen at the bedside with her daughter present today. She reports she feels "good". She endorses mild shortness of breath this morning which is "better ". Is eating breakfast, expresses no questions or concerns. Is oriented to name and place. Denies chest pain. Endorses intermittent cough and crackling/wheezy breaths. Denies pain in her feet, denies fever/chills/sweats. Review of Systems Review of Systems: All systems reviewed & are unremarkable except as noted in HPI & below Physical Exam Physical Exam: General: Alert, oriented to name. Cooperative. HEENT: Atraumatic, normocephalic. Pulm: Bibasilar rales. No respiratory distress. Cardiac: RRR, systolic murmur. Radial pulses intact and symmetrical. JVD present to the angle of the mandible, +HJR Abdominal: Nontender, nondistended, soft. BS present. Extremity: R foot with dry gangrene of all toes, no warmth/erythema/pain. Results & Data ([facility]) Vital Signs (Past 12 Hours) Vital Signs Temp Pulse Pulse Pulse Resp BP Pulse Ox 12/22/19 07:37 36.9 C 85 22 130/77 93 12/22/19 07:28 91 H 20 94 02/07/20 03:19 36.9 C 83 20 127/73 94 12/22/19 01:51 89 12/21/19 23:45 36.8 C 89 20 108/77 97 12/21/19 23:39 97 H 34 H 97 Resident Activity Tracking Resident Involvement: Resident Care Provided Care Provided: Adult Hospital Medicine (1) A-fib Atrial fibrillation type: longstanding persistent Qualified Code(s): I48.11 - Longstanding persistent atrial fibrillation (2) Acute bronchitis Bronchitis organism: unspecified organism Qualified Code(s): J20.9 - Acute bronchitis, unspecified
[2019-12-22] MEDS ORDERED: FUROSEMIDE 20 MG in SYRINGE 0 ML IV ONE (14:15)
--- NOTE | 2019-12-22 17:28 | Billing Data ---
Date of Service December 22, 2019 Coding Level of Care Code 46117 Subseq Hosp Care Lvl 3
[2019-12-22] MEDS: ATORVASTATIN 40 MG TAB PO SCH (20:12)
[2019-12-23 06:09] LABS: Basophils # (auto) 0.02 K/uL (0-0.2); Basophils % (auto) 0.3 %; Eosinophils # (auto) 0.04 K/uL (0-0.5); Eosinophils % (auto) 0.6 %; Hematocrit (blood only) 32.4 % (37-47); Hemoglobin 10.7 g/dL (12.0-16.0); Immature Granulocytes # (auto) 0.04 K/uL (0.00-0.02); Immature Granulocytes % (auto) 0.6 %; Lymphocytes # (auto) 0.85 K/uL (1.2-3.4); Mean Corpuscular Hemoglobin 29.8 pg (25-34); Mean Corpuscular Volume 90.3 fL (80-100); Mean Platelet Volume 9.8 fL (7.4-10.4); Monocytes # (auto) 0.79 K/uL (0.11-0.59); Neutrophils # (auto) 4.82 K/uL (1.4-6.5); Neutrophils % (auto) 73.5 %; Platelet Count 148 K/uL (130-400); RDW Coefficient of Variation 17.7 % (11.5-14.5); RDW Standard Deviation 58.9 fL (36.4-46.3); Red Blood Count 3.59 M/uL (4.2-5.4); White Blood Count 6.56 K/uL (4.8-10.8)
[2019-12-23 06:40] LABS: BUN Creatinine Ratio 27.7 (10-20); Calcium 8.3 mg/dl (8.5-10.1); Creatinine Clr Calc Pharmacy 23.9 ml/min; Est GFR (African American) 44.2; Est GFR (Non-African American) 38.1; Potassium 3.4 mmol/L (3.5-5.1)
[2019-12-23] MEDS: LEVOTHYROXINE SODIUM 112 MCG TABLET PO SCH ×2 (06:46→09:37)
[2019-12-23] MEDS: ALBUT/IPRATROP 3MG/0.5MG NEB 3 ML VIAL NEB SCH ×4 (07:17→19:27)
[2019-12-23] MEDS: ASCORBIC ACID 500 MG TAB PO SCH ×2 (09:37→20:19)
[2019-12-23] MEDS: guaiFENesin 600 MG TABCR PO SCH ×2 (09:39→20:17)
[2019-12-23] MEDS: CLOPIDOGREL BISULFATE 75 MG TAB PO SCH (09:39)
[2019-12-23] MEDS: LORATADINE 10 MG TAB PO SCH (09:39)
[2019-12-23] MEDS: CEROVITE ADV FORMULA TAB PO SCH (09:39)
[2019-12-23] MEDS: DOCUSATE SODIUM 100 MG CAP PO SCH ×2 (09:39→20:15)
[2019-12-23] MEDS: POTASSIUM CHLORIDE 20 MEQ TABCR PO SCH (09:40)
[2019-12-23] MEDS: APIXABAN 2.5 MG TAB PO SCH ×2 (09:40→20:18)
[2019-12-23] MEDS: ATENOLOL 50 MG TABLET PO SCH ×2 (09:40→20:18)
[2019-12-23] MEDS: FERROUS SULFATE 325 MG TAB PO SCH ×2 (09:40→20:22)
[2019-12-23] MEDS: OMEGA-3 (PURIFIED FISH OIL) 1 GM CAP PO SCH (09:40)
[2019-12-23] MEDS: FAMOTIDINE 20 MG TAB PO SCH ×2 (09:40→20:16)
[2019-12-23] MEDS: CHOLECALCIFEROL 1,000 UNITS 25 MCG TAB PO SCH (09:41)
[2019-12-23] MEDS: LACTOBACILLUS ACIDOPHILUS (FLORANEX) TAB PO SCH ×4 (09:41→20:14)
--- NOTE | 2019-12-23 13:38 | Hospitalist Progress Note ---
Date of Service December 23, 2019 Assessment & Plan (1) Acute respiratory failure with hypoxia: 89-year-old female was admitted on 21 December 2019 for URI symptoms three days prior as well as hypoxia. Acute hypoxic respiratory failure, bilateral pleural effusions: Reportedly SpO2 70% prior to arrival. Suspect viral URI with mucous plugging. Lactate trended down. Nasal MRSA, influenza, and procalcitonin negative. BCx NGTD. CXR suggestive of some edema. June 2019 TTE noted EF 60-65%, severe LVH, and multiple valvular issues. - Given cefepime in ED. Kept on Levaquin (same as for chronic osteo). - Receiving periodic doses of Lasix. Admit weight 60.2 kg, presently 59 kg. - On scheduled duonebs as well as mucinex and Claritin. Has been on BiPAP. Getting chest percussion therapy and flutter valve. Respiratory function not quite ready for discharge, stay the course. Ongoing medical issues: - HTN, HLD, PAD, sick sinus syndrome: History of pacemaker placement. On home atenolol, Lipitor, Plavix, potassium supplements, iron. - Central sleep apnea: History of same during acute illness. - CKD stage 3: Admit Cr 1.37 (with baseline around 1.1). Presently stable around 1.2's. - Atrial fibrillation: Rate controlled with atenolol. On apixaban. Has pacemaker. - Chronic right foot osteomyelitis: Admit from Nov 27- for same, notable for ESBL E coli. On Levaquin due to CKD. Plans for conservative management. - Dementia, Parkinson's disease, prior TIA. - Hypothyroidism: 03Feb TSH 22.7 with normal free T4. On home Synthroid. - Hiatal hernia: Seen on chest x-ray and prior CT chest. On home Pepcid. - Prior DVT. Code status: Conditional: Yes to invasive airway artificial ventilation. No chest compressions and cardiac defibrillation. Diet: Regular, pured. DVT prophy: Apixaban. PT/OT: PT notes her current mobility is at baseline, thus no role for PT presently. Disbo: Admitted to med surg. Anticipate eventual discharge back to [facility]. (2) Bilateral pleural effusion: (3) HTN (hypertension): (4) Hyperlipidemia: (5) Peripheral arterial disease: (6) Sick sinus syndrome: (7) Central sleep apnea: (8) CKD (chronic kidney disease), stage III: (9) A-fib: (10) Chronic osteomyelitis: (11) Dementia: (12) Parkinson disease: (13) Hypothyroidism: (14) Hiatal hernia: Supervising Physician Co-Signing Physician Notes I personally examined the patient and verified all jacome points of history and exam, discussed case, and agree with decision making with Dr Burger. still raspy respirations but she notes she's feeling better. has food in front of her - nursing notes no s/s aspiration. Vitals noted, in general she is awake and alert pleasant no distress. HEENT normocephalic atraumatic mucous members moist. Lungs are diffuse expiratory rhonchi, far less as far as rales compared to prior, no accessory muscle use good effort. Acute hypoxic respiratory failureseems to be both a viral bronchitis and acute on chronic HFpEF (likely from the physiologic stress of the bronchitis) -Clearly still no indication for antibiotics with no focal infiltrate and reassuring procalcitonin levels as well as clinical improvement. Continue supportive care as it relates to the viral bronchitis -with bump in creatinine she is probably now dry from a CHF standpoint - hold on further IV lasix, but follow. Otherwise as above Subjective Spoke with patient earlier this morning. She preferred to stay sleeping but woke easily. Overall said that she felt "good", denies any pain, denies any other acute concerns. Review of Systems Review of Systems: Per HPI as above. Physical Exam Physical Exam: General Appearance: Sleeping but easily awakes, alert, appears comfortable in general, NAD. CV: +S1S2 RRR, positive systolic murmur. Pulm: Clear to auscultation throughout. Has BiPAP in place overnight. Abdomen: +BS, soft, non-tender, non-distended. Extremities: No pedal edema or calf tenderness. Moving all extremities beto urally and easily. Neuro: No gross neuro deficits. Results & Data ([facility]) Vital Signs (Past 12 Hours) Vital Signs Temp Pulse Pulse Resp BP Pulse Ox Pulse Ox 12/23/19 11:41 88 20 98 12/23/19 11:39 88 20 98 12/23/19 08:30 95 12/23/19 07:20 83 83 20 98 12/23/19 07:19 37.0 C 76 18 116/76 97 02/08/20 02:31 88 18 97 Laboratory Results 12/23/19 12/23/19 Range/Units 05:49 05:49 WBC 6.56 (4.8-10.8) K/uL RBC 3.59 L (4.2-5.4) M/uL Hgb 10.7 L (12.0-16.0) g/dL Hct 32.4 L (37-47) % MCV 90.3 (80-100) fL MCH 29.8 (25-34) pg MCHC 33.0 (32-36) g/dL RDW Std Deviation 58.9 H (36.4-46.3) fL RDW Coeff of Stephani 17.7 H (11.5-14.5) % Plt Count 148 (130-400) K/uL MPV 9.8 (7.4-10.4) fL Immature Gran % (Auto) 0.6 % Neut % (Auto) 73.5 % Lymph % (Auto) 13.0 % [place] % (Auto) 12.0 % Eos % (Auto) 0.6 % Baso % (Auto) 0.3 % Immature Gran # (Auto) 0.04 H (0.00-0.02) K/uL Neut # (Auto) 4.82 (1.4-6.5) K/uL Lymph # (Auto) 0.85 L (1.2-3.4) K/uL [place] # (Auto) 0.79 H (0.11-0.59) K/uL Eos # (Auto) 0.04 (0-0.5) K/uL Baso # (Auto) 0.02 (0-0.2) K/uL Sodium 144 (136-145) mmol/L Potassium 3.4 L (3.5-5.1) mmol/L Chloride 114 H (98-107) mmol/L Carbon Dioxide 24 (21-32) mmol/L Anion Gap 6.0 (3-11) BUN 35 H (7-18) mg/dl Creatinine 1.25 H (0.6-1.2) mg/dl Est Cr Clr Drug Dosing 23.9 ml/min Est GFR ( Amer) 44.2 Est GFR (Non-Af Amer) 38.1 BUN/Creatinine Ratio 27.7 H (10-20) Glucose 91 (70-99) mg/dl Calcium 8.3 L (8.5-10.1) mg/dl Medications Administered Current Inpatient Medications Acetaminophen (Tylenol) 650 mg PO Q4H PRN PRN Reason: Pain or Fever Stop: 01/20/20 21:11 Albuterol (Duoneb) 3 ml NEB QIDR [facility] Stop: 01/21/20 06:59 Last Admin: 12/23/19 11:37 Dose: 3 ml Documented by: Albuterol (Duoneb) 3 ml NEB Q2H PRN PRN Reason: SOB/WHEEZING Stop: 01/20/20 21:42 Apixaban (Eliquis) 2.5 mg PO BID [facility] Stop: 01/20/20 21:11 Last Admin: 12/23/19 09:40 Dose: 2.5 mg Documented by: Ascorbic Acid (Vitamin C) 250 mg PO BID [facility] Stop: 01/21/20 08:59 Last Admin: 12/23/19 09:37 Dose: 250 mg Documented by: Atenolol (Tenormin) 50 mg PO BID [facility] Stop: 01/20/20 21:11 Last Admin: 12/23/19 09:40 Dose: 50 mg Documented by: Atorvastatin Calcium (Lipitor) 40 mg PO QPM [facility] Stop: 01/20/20 21:11 Last Admin: 12/22/19 20:12 Dose: 40 mg Documented by: Clopidogrel Bisulfate (Plavix) 75 mg PO QAM [facility] Stop: 01/21/20 08:59 Last Admin: 12/23/19 09:39 Dose: 75 mg Documented by: Docusate Sodium (Colace) 100 mg PO BID [facility] Stop: 01/20/20 21:11 Last Admin: 12/23/19 09:39 Dose: 100 mg Documented by: Famotidine (Pepcid) 20 mg PO BID [facility] Stop: 01/20/20 21:11 Last Admin: 12/23/19 09:40 Dose: 20 mg Documented by: Ferrous Sulfate (Feosol) 325 mg PO BID [facility] Stop: 01/21/20 08:59 Last Admin: 12/23/19 09:40 Dose: 325 mg Documented by: Fish Oil ([place]-3 (Purified Fish Oil)) [facility] Stop: 01/21/20 08:59 Last Admin: 12/23/19 09:40 Dose: 1 gm Documented by: Guaifenesin (Mucinex) 600 mg PO Q12 [facility] Stop: 01/21/20 08:59 Last Admin: 12/23/19 09:39 Dose: 600 mg Documented by: Lactobacillus Acidophilus (Floranex) 4 tab PO QID [facility] Stop: 01/20/20 21:11 Last Admin: 12/23/19 13:04 Dose: 4 tab Documented by: Levofloxacin (Levaquin) 750 mg PO Q2D [facility] Stop: 02/01/20 21:59 Last Admin: 12/21/19 22:20 Dose: 750 mg Documented by: Levothyroxine Sodium (Synthroid) 112 mcg PO DAILYBB [facility] Stop: 01/21/20 06:29 Last Admin: 12/23/19 09:37 Dose: 112 mcg Documented by: Loratadine (Claritin) 10 [facility] Stop: 01/21/20 08:59 Last Admin: 12/23/19 09:39 Dose: 10 mg Documented by: Miscellaneous (Order Awaiting Action) 1 ea N/A QS [facility] Stop: 01/21/20 00:00 Last Admin: 12/23/19 10:15 Dose: Not Given Documented by: Multivitamins/Minerals (Multivitamin W/ Minerals Tab) 1 tab PO [facility] Stop: 01/21/20 08:59 Last Admin: 12/23/19 09:39 Dose: 1 tab Documented by: Ondansetron HCl (Zofran) 4 mg IV Q6H PRN PRN Reason: Nausea Stop: 01/20/20 21:11 Polyethylene Glycol (Miralax Powder Packet) 17 gm PO DAILY PRN PRN Reason: Constipation Stop: 01/20/20 21:11 Potassium Chloride (Klor-Con M20) 20 meq [facility] Stop: 01/21/20 08:59 Last Admin: 12/23/19 09:40 Dose: 20 meq Documented by: Sodium Chloride ([place] Nasal) 2 sprays NA Q24H PRN PRN Reason: Allergic Rhinitis Stop: 01/20/20 21:11 Vitamin D (Vitamin D3) 1,000 units [facility] Stop: 01/21/20 08:59 Last Admin: 12/23/19 09:41 Dose: 1,000 units Documented by: Resident Activity Tracking Resident Involvement: Resident Care Provided Care Provided: Adult Hospital Medicine (1) A-fib Atrial fibrillation type: longstanding persistent Qualified Code(s): I48.11 - Longstanding persistent atrial fibrillation (2) Hypothyroidism Hypothyroidism type: unspecified Qualified Code(s): E03.9 - Hypothyroidism, unspecified
--- NOTE | 2019-12-23 17:42 | Billing Data ---
Date of Service December 23, 2019 Coding Level of Care Code 86988 Subseq Hosp Care Lvl 2
[2019-12-23] MEDS ORDERED: POTASSIUM CHLORIDE 20 MEQ TABCR PO ONE (17:43)
[2019-12-23] MEDS: ATORVASTATIN 40 MG TAB PO SCH (20:18)
[2019-12-23] MEDS: levoFLOXacin 750 MG TAB PO SCH (21:18)
[2019-12-24] MEDS: LEVOTHYROXINE SODIUM 112 MCG TABLET PO SCH (05:57)
[2019-12-24 06:41] LABS: BUN Creatinine Ratio 26.7 (10-20); Calcium 8.6 mg/dl (8.5-10.1); Creatinine Clr Calc Pharmacy 26.4 ml/min; Est GFR (African American) 49.9; Est GFR (Non-African American) 43.1; Potassium 4.3 mmol/L (3.5-5.1)
[2019-12-24] MEDS: ALBUT/IPRATROP 3MG/0.5MG NEB 3 ML VIAL NEB SCH ×4 (07:08→19:10)
[2019-12-24] MEDS: guaiFENesin 600 MG TABCR PO SCH ×2 (08:29→20:05)
[2019-12-24] MEDS: POTASSIUM CHLORIDE 20 MEQ TABCR PO SCH (08:29)
[2019-12-24] MEDS: CLOPIDOGREL BISULFATE 75 MG TAB PO SCH (08:29)
[2019-12-24] MEDS: CEROVITE ADV FORMULA TAB PO SCH (08:29)
[2019-12-24] MEDS: ASCORBIC ACID 500 MG TAB PO SCH ×2 (08:29→20:05)
[2019-12-24] MEDS: FAMOTIDINE 20 MG TAB PO SCH ×2 (08:30→20:05)
[2019-12-24] MEDS: CHOLECALCIFEROL 1,000 UNITS 25 MCG TAB PO SCH (08:30)
[2019-12-24] MEDS: LORATADINE 10 MG TAB PO SCH (08:30)
[2019-12-24] MEDS ORDERED: FUROSEMIDE 20 MG in SYRINGE 0 ML IV ONE (08:30)
[2019-12-24] MEDS: OMEGA-3 (PURIFIED FISH OIL) 1 GM CAP PO SCH (08:30)
[2019-12-24] MEDS: ATENOLOL 50 MG TABLET PO SCH ×2 (08:30→20:06)
[2019-12-24] MEDS: LACTOBACILLUS ACIDOPHILUS (FLORANEX) TAB PO SCH ×4 (08:31→20:05)
[2019-12-24] MEDS: APIXABAN 2.5 MG TAB PO SCH ×2 (08:31→20:05)
--- NOTE | 2019-12-24 09:03 | XRay Report ---
XR chest 1V portable CLINICAL HISTORY: likely pulm edema COMPARISON STUDY: Chest CT December 04, 2019 chest radiograph December 21, 2019. FINDINGS: Incidental note is made of severe osteoarthritis of both shoulders. Dual lead left subclavi an pacemaker is in place. Large hiatal hernia is again noted. Small to moderate bilateral pleural eff usions and bibasilar opacities persist. These have slightly improved. There is pulmonary vascular con gestion. IMPRESSION: 1. Slight improvement [id number] bilateral pleural effusions and associated bibasilar opacitie s which favor atelectasis. 2. Pulmonary vascular congestion. ACT 112: Negative or not required by law. Electronically signed by: Sebastián Hernandez M.D. 12/24/2019 9:01 AM
[2019-12-24] MEDS: FERROUS SULFATE 325 MG TAB PO SCH ×2 (09:22→20:06)
[2019-12-24] MEDS: DOCUSATE SODIUM 100 MG CAP PO SCH ×2 (09:22→20:06)
--- NOTE | 2019-12-24 13:06 | XCELERA ---
[id number] \\[email or web address]\[id number]
--- NOTE | 2019-12-24 14:10 | Hospitalist Progress Note ---
Date of Service December 24, 2019 Assessment & Plan (1) Acute respiratory failure with hypoxia: 89-year-old female was admitted on 21 December 2019 for URI symptoms three days prior as well as hypoxia. Acute hypoxic respiratory failure, bilateral pleural effusions: Reportedly SpO2 70% prior to arrival. Suspect viral URI with mucous plugging. Lactate trended down. Nasal MRSA, influenza, and procalcitonin negative. BCx NGTD. b CXR read as improved effusions. June 2019 TTE noted EF 60-65%, severe LVH, and multiple valvular issues. - Given cefepime in ED. Admitted on Levaquin (same as for chronic osteo). - Receiving periodic doses of Lasix, last on . May have improved symptoms. Admit weight 60.2 kg, most recently 59 kg. Ordered an echo to see if she has new u/s evidence of heart failure. May help with determining if she should be on a small dose of scheduled Lasix upon discharge. - On scheduled duonebs as well as mucinex and Claritin. Has been on BiPAP when sleeping. Getting chest percussion therapy and flutter valve. Respiratory function still not quite ready for discharge. Ongoing medical issues: - HTN, HLD, PAD, sick sinus syndrome: History of pacemaker placement. On home atenolol, Lipitor, Plavix, potassium supplements, iron. - Central sleep apnea: History of same during acute illness. - CKD stage 3: Admit Cr 1.37 (with baseline around 1.1). Presently stable around 1.2. Bassett cath in place. - Atrial fibrillation: Rate controlled with atenolol. On apixaban. Has pacemaker. - Chronic right foot osteomyelitis: Admit from Nov 27- for same, notable for ESBL E coli. On Levaquin due to CKD. Plans for conservative management. Wound care consulted. - Dementia, Parkinson's disease, prior TIA. - Hypothyroidism: 03Feb TSH 22.7 with normal free T4. On home Synthroid. - Hiatal hernia: Seen on chest x-ray and prior CT chest. On home Pepcid. - Prior DVT. Code status: Conditional: Yes to invasive airway artificial ventilation. No chest compressions and cardiac defibrillation. Diet: Regular, pured. Speech consult ordered. DVT prophy: Apixaban. PT/OT: PT notes her current mobility is at baseline, thus no role for PT presently. Disbo: Admitted to med surg. Anticipate eventual discharge back to [facility]. (2) Bilateral pleural effusion: (3) HTN (hypertension): (4) Hyperlipidemia: (5) Peripheral arterial disease: (6) Sick sinus syndrome: (7) Central sleep apnea: (8) CKD (chronic kidney disease), stage III: (9) A-fib: (10) Chronic osteomyelitis: (11) Dementia: (12) Parkinson disease: (13) Hypothyroidism: (14) Hiatal hernia: Supervising Physician Co-Signing Physician Notes I personally examined the patient and verified all jacome points of history and exam, discussed case, and agree with decision making with Dr Burger. breathing feels better than before. dtr notes increase in work of breathing around meals - ?wonders if it's just that eating is significant exertion for pt or if she might be aspirating. already on modified diet as far as foods but thin liquids. Vitals noted, in general she is awake and alert pleasant no distress. HEENT normocephalic atraumatic mucous members moist. Lungs are diffuse expiratory rhonchi no rales and much more clear than before although still significantly filled with adventitious sounds. Acute hypoxic respiratory failureseems to be both a viral bronchitis and acute on chronic HFpEF (likely from the physiologic stress of the bronchitis) -dtr raises concern on aspiration - quite reasonable to have speech see; reassured dtr that without overt pneumonia/pneumonitis if she is aspirating likely to be reasonably minor, but could still work with speech/modify diet further to reduce risk -Still no indication for antibiotics with no focal infiltrate and reassuring procalcitonin levels as well as clinical improvement. Continue supportive care as it relates to the viral bronchitis. showing improvement -acute diastolic CHF - did improve with further lasix, continue to follow closely/dose lasix day-to-day based on clinical picture and need. echo pending - if significant worsening might be a clue of needing routine lasix even after this episode; if about the same then likely physiologic stress from acute illness precipitated acute diastolic CHF but since she's not frequently in with pulmonary edema could continue to look at as mostly an acute picture. Otherwise as above Subjective Found patient this morning sitting up in her bed, reading from a magazine. She really did not volunteer any information but overall said that she felt good. She denied any pain. Her only request was for an extra blanket. Met with patient and her daughter at bedside later in the morning. Daughter wondered if we could have speech therapy see her, as she notes the patient has more coughing just after eating. Otherwise no acute concerns raised. Review of Systems Review of Systems: Unobtainable due to cognitive status Physical Exam Physical Exam: General Appearance: Awake, alert, overall appears comfortable, and in no acute distress. CV: +S1S2 RRR, positive systolic murmur. Pulm: Diffuse rales throughout. [Has been wearing BiPAP overnight.] Abdomen: +BS, soft, non-tender, non-distended. Extremities: No pedal edema or calf tenderness. 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 Neuro: No gross neuro deficits. Results & Data ([facility]) Vital Signs (Past 12 Hours) Vital Signs Temp Pulse Resp BP Pulse Ox 12/24/19 11:42 73 22 97 12/24/19 07:11 63 24 99 12/24/19 07:10 36.6 C 63 20 124/72 95 Laboratory Results 12/24/19 Range/Units 05:36 Sodium 141 (136-145) mmol/L Potassium 4.3 D (3.5-5.1) mmol/L Chloride 112 H (98-107) mmol/L Carbon Dioxide 23 (21-32) mmol/L Anion Gap 6.0 (3-11) BUN 30 H (7-18) mg/dl Creatinine 1.13 (0.6-1.2) mg/dl Est Cr Clr Drug Dosing 26.4 ml/min Est GFR ( Amer) 49.9 Est GFR (Non-Af Amer) 43.1 BUN/Creatinine Ratio 26.7 H (10-20) Glucose 88 (70-99) mg/dl Calcium 8.6 (8.5-10.1) mg/dl Medications Administered Current Inpatient Medications Acetaminophen (Tylenol) 650 mg PO Q4H PRN PRN Reason: Pain or Fever Stop: 01/20/20 21:11 Albuterol (Duoneb) 3 ml NEB QIDR [facility] Stop: 01/21/20 06:59 Last Admin: 12/24/19 11:38 Dose: 3 ml Documented by: Albuterol (Duoneb) 3 ml NEB Q2H PRN PRN Reason: SOB/WHEEZING Stop: 01/20/20 21:42 Apixaban (Eliquis) 2.5 mg PO BID [facility] Stop: 01/20/20 21:11 Last Admin: 12/24/19 08:31 Dose: 2.5 mg Documented by: Ascorbic Acid (Vitamin C) 250 mg PO BID [facility] Stop: 01/21/20 08:59 Last Admin: 12/24/19 08:29 Dose: 250 mg Documented by: Atenolol (Tenormin) 50 mg PO BID [facility] Stop: 01/20/20 21:11 Last Admin: 12/24/19 08:30 Dose: 50 mg Documented by: Atorvastatin Calcium (Lipitor) 40 mg PO QPM [facility] Stop: 01/20/20 21:11 Last Admin: 12/23/19 20:18 Dose: 40 mg Documented by: Clopidogrel Bisulfate (Plavix) 75 mg PO QAM [facility] Stop: 01/21/20 08:59 Last Admin: 12/24/19 08:29 Dose: 75 mg Documented by: Docusate Sodium (Colace) 100 mg PO BID [facility] Stop: 01/20/20 21:11 Last Admin: 12/24/19 09:22 Dose: 100 mg Documented by: Famotidine (Pepcid) 20 mg PO BID [facility] Stop: 01/20/20 21:11 Last Admin: 12/24/19 08:30 Dose: 20 mg Documented by: Ferrous Sulfate (Feosol) 325 mg PO BID [facility] Stop: 01/21/20 08:59 Last Admin: 12/24/19 09:22 Dose: 325 mg Documented by: Fish Oil ([place]-3 (Purified Fish Oil)) 1 gm PO QAM [facility] Stop: 01/21/20 08:59 Last Admin: 12/24/19 08:30 Dose: 1 gm Documented by: Guaifenesin (Mucinex) 600 mg PO Q12 [facility] Stop: 01/21/20 08:59 Last Admin: 12/24/19 08:29 Dose: 600 mg Documented by: Lactobacillus Acidophilus (Floranex) 4 tab PO QID [facility] Stop: 01/20/20 21:11 Last Admin: 12/24/19 14:04 Dose: 4 tab Documented by: Levofloxacin (Levaquin) 750 mg PO Q2D [facility] Stop: 03/19/20 21:59 Last Admin: 12/23/19 21:18 Dose: 750 mg Documented by: Levothyroxine Sodium (Synthroid) 112 mcg PO DAILYBB [facility] Stop: 01/21/20 06:29 Last Admin: 12/24/19 05:57 Dose: 112 mcg Documented by: Loratadine (Claritin) [facility] Stop: 01/21/20 08:59 Last Admin: 12/24/19 08:30 Dose: 10 mg Documented by: Miscellaneous (Order Awaiting Action) 1 ea N/A QS [facility] Stop: 01/21/20 00:00 Last Admin: 12/24/19 08:29 Dose: Not Given Documented by: Multivitamins/Minerals (Multivitamin W/ Minerals Tab) 1 tab PO [facility] Stop: 01/21/20 08:59 Last Admin: 12/24/19 08:29 Dose: 1 tab Documented by: Ondansetron HCl (Zofran) 4 mg IV Q6H PRN PRN Reason: Nausea Stop: 01/20/20 21:11 Polyethylene Glycol (Miralax Powder Packet) 17 gm PO DAILY PRN PRN Reason: Constipation Stop: 01/20/20 21:11 Potassium Chloride (Klor-Con M20) 20 meq PO [facility] Stop: 01/21/20 08:59 Last Admin: 12/24/19 08:29 Dose: 20 meq Documented by: Sodium Chloride ([place] Nasal) 2 sprays NA Q24H PRN PRN Reason: Allergic Rhinitis Stop: 01/20/20 21:11 Vitamin D (Vitamin D3) 1,000 units PO [facility] Stop: 01/21/20 08:59 Last Admin: 12/24/19 08:30 Dose: 1,000 units Documented by: Resident Activity Tracking Resident Involvement: Resident Care Provided Care Provided: Adult Hospital Medicine (1) A-fib Atrial fibrillation type: longstanding persistent Qualified Code(s): I48.11 - Longstanding persistent atrial fibrillation (2) Hypothyroidism Hypothyroidism type: unspecified Qualified Code(s): E03.9 - Hypothyroidism, unspecified
--- NOTE | 2019-12-24 15:24 | Billing Data ---
Date of Service December 24, 2019 Coding Level of Care Code 34243 Subseq Hosp Care Lvl 3
[2019-12-24] MEDS: ATORVASTATIN 40 MG TAB PO SCH (20:06)
[2019-12-25] MEDS: LEVOTHYROXINE SODIUM 112 MCG TABLET PO SCH (06:06)
[2019-12-25] MEDS: ALBUT/IPRATROP 3MG/0.5MG NEB 3 ML VIAL NEB SCH ×4 (07:43→18:59)
[2019-12-25] MEDS: CLOPIDOGREL BISULFATE 75 MG TAB PO SCH (08:42)
[2019-12-25] MEDS: LACTOBACILLUS ACIDOPHILUS (FLORANEX) TAB PO SCH ×4 (08:42→20:40)
[2019-12-25] MEDS: ATENOLOL 50 MG TABLET PO SCH ×2 (08:43→20:40)
[2019-12-25] MEDS: FERROUS SULFATE 325 MG TAB PO SCH ×2 (08:43→20:40)
[2019-12-25] MEDS: ASCORBIC ACID 500 MG TAB PO SCH ×2 (08:43→20:39)
[2019-12-25] MEDS: LORATADINE 10 MG TAB PO SCH (08:43)
[2019-12-25] MEDS: POTASSIUM CHLORIDE 20 MEQ TABCR PO SCH (08:43)
[2019-12-25] MEDS: FAMOTIDINE 20 MG TAB PO SCH ×2 (08:43→20:40)
[2019-12-25] MEDS: DOCUSATE SODIUM 100 MG CAP PO SCH ×2 (08:44→20:40)
[2019-12-25] MEDS: CEROVITE ADV FORMULA TAB PO SCH (08:44)
[2019-12-25] MEDS: APIXABAN 2.5 MG TAB PO SCH ×2 (08:44→20:40)
[2019-12-25] MEDS: CHOLECALCIFEROL 1,000 UNITS 25 MCG TAB PO SCH (08:44)
[2019-12-25] MEDS: guaiFENesin 600 MG TABCR PO SCH ×2 (08:44→20:40)
[2019-12-25] MEDS: OMEGA-3 (PURIFIED FISH OIL) 1 GM CAP PO SCH (08:44)
--- NOTE | 2019-12-25 19:12 | Hospitalist Progress Note ---
Date of Service December 25, 2019 Assessment & Plan (1) Acute respiratory failure with hypoxia: 89-year-old female was admitted on 21 December 2019 for URI symptoms as well as hypoxia. Acute hypoxic respiratory failure, : -SpO2 70% prior to arrival. -Continue BiPAP when sleeping. Acute diastolic heart failure with bilateral pleural effusion -June 2019 TTE noted EF 60-65%, severe LVH, and multiple valvular issues. CXR read as improved effusions. - Receiving periodic doses of Lasix, last on . None 12/25. ?Pneumonia - ? aspiration. - Nasal MRSA, influenza, and procalcitonin negative. - BCx NGTD. - Admitted on Levaquin (same as for chronic osteo). - Continue scheduled duonebs. - continue chest percussion therapy and flutter valve. - check swallow study - HTN, HLD, PAD, sick sinus syndrome: History of pacemaker placement. On home atenolol, Lipitor, Plavix, potassium supplements, iron. - Central sleep apnea: History of same during acute illness. using bipap at night. - CKD stage 3: Admit Cr 1.37 (with baseline around 1.1). Presently stable around 1.2. Bassett cath in place. - Atrial fibrillation: Rate controlled with atenolol. On apixaban. Has pacemaker. - Chronic right foot osteomyelitis: Admit from Nov 27- for same, notable for ESBL E coli. On Levaquin due to CKD. Plans for conservative management. Wound care consulted. - Dementia, Parkinson's disease, prior TIA. Stable. - Hypothyroidism: Feb TSH 22.7 with normal free T4. On home Synthroid. - Hiatal hernia: Seen on chest x-ray and prior CT chest. On home Pepcid. - Prior DVT. Code status: Conditional: Yes to invasive airway artificial ventilation. No chest compressions and cardiac defibrillation. Diet: Regular, pured. Speech consult ordered. DVT prophy: Apixaban. PT/OT: PT notes her current mobility is at baseline, thus no role for PT presently. Disbo: Admitted to med surg. Anticipate eventual discharge back to [facility]. (2) Bilateral pleural effusion: (3) HTN (hypertension): (4) Hyperlipidemia: (5) Peripheral arterial disease: (6) Sick sinus syndrome: (7) Central sleep apnea: (8) CKD (chronic kidney disease), stage III: (9) A-fib: (10) Chronic osteomyelitis: (11) Dementia: (12) Parkinson disease: (13) Hypothyroidism: (14) Hiatal hernia: Admission and Anticipated Discharge Date Admission Date: December 21, 2019 Supervising Physician Co-Signing Physician Notes Resident Physician Supervision Note: I independently interviewed and examined the patient and verified the jacome history and physical, reviewed labs and image studies, discussed the case with the resident Dr. Mancuso and agree with the findings and care plan. Subjective Ms. Victor sitting up in bed this AM reading a card. States she has no chest pain or SOB. Still has a cough. Denies any headache, N/V, abd pain, diarrhea or constipation. Review of Systems Review of Systems: All systems reviewed & are unremarkable except as noted in Subjective Physical Exam Physical Exam: General: Alert, oriented. No acute distress sitting up in bed Skin: No noted rashes or bruises Psych: Appropriate mood and affect Neuro: No gross deficits HEENT: NC/AT Chest: Nontender to palpation. CV: RRR, Normal s1, s2. No murmurs appreciated Resp: Breath sounds coarse bilaterally, no increased effort of breathing. Abdomen: Soft, nontender, nondistended. No guarding. No organomegaly appreciated. Extremities:lower extremities bilaterally in boots, with darkened toes noted on right foot. Results & Data ([facility]) Vital Signs (Past 12 Hours) Vital Signs Temp Pulse Resp BP Pulse Ox 12/25/19 18:59 87 18 95 12/25/19 15:55 36.7 C 92 H 22 118/72 91 12/25/19 15:16 85 18 94 12/25/19 11:12 83 20 96 12/25/19 07:43 80 18 96 12/25/19 07:29 36.7 C 83 16 124/76 95 Resident Activity Tracking Resident Involvement: Resident Care Provided Care Provided: Adult Hospital Medicine (1) A-fib Atrial fibrillation type: longstanding persistent Qualified Code(s): I48.11 - Longstanding persistent atrial fibrillation (2) Hypothyroidism Hypothyroidism type: unspecified Qualified Code(s): E03.9 - Hypothyroidism, unspecified
[2019-12-25] MEDS: ATORVASTATIN 40 MG TAB PO SCH (20:40)
[2019-12-25] MEDS: levoFLOXacin 750 MG TAB PO SCH (20:47)
[2019-12-26] MEDS: LEVOTHYROXINE SODIUM 112 MCG TABLET PO SCH (05:31)
[2019-12-26 06:22] LABS: Basophils # (auto) 0.03 K/uL (0-0.2); Basophils % (auto) 0.4 %; Eosinophils # (auto) 0.14 K/uL (0-0.5); Eosinophils % (auto) 1.8 %; Hematocrit (blood only) 36.2 % (37-47); Hemoglobin 11.6 g/dL (12.0-16.0); Immature Granulocytes # (auto) 0.08 K/uL (0.00-0.02); Lymphocytes # (auto) 1.12 K/uL (1.2-3.4); Mean Corpuscular Hemoglobin 29.2 pg (25-34); Mean Corpuscular Volume 91.2 fL (80-100); Mean Platelet Volume 10.1 fL (7.4-10.4); Monocytes # (auto) 0.52 K/uL (0.11-0.59); Monocytes % (auto) 6.5 %; Neutrophils # (auto) 6.09 K/uL (1.4-6.5); Neutrophils % (auto) 76.3 %; Platelet Count 177 K/uL (130-400); RDW Coefficient of Variation 17.5 % (11.5-14.5); Red Blood Count 3.97 M/uL (4.2-5.4); White Blood Count 7.98 K/uL (4.8-10.8)
[2019-12-26 06:47] LABS: Albumin Level 2.5 gm/dl (3.4-5.0); BUN Creatinine Ratio 22.9 (10-20); Calcium 8.9 mg/dl (8.5-10.1); Creatinine Clr Calc Pharmacy 26.4 ml/min; Est GFR (African American) 49.9; Est GFR (Non-African American) 43.1; Potassium 3.8 mmol/L (3.5-5.1)
[2019-12-26 06:50] LABS: Albumin Globulin Ratio 0.7 (0.9-2); Bilirubin,Total 0.8 mg/dl (0.2-1); Globulin 3.7 gm/dl (2.5-4.0); Total Protein 6.2 gm/dl (6.4-8.2)
[2019-12-26] MEDS: ALBUT/IPRATROP 3MG/0.5MG NEB 3 ML VIAL NEB SCH ×2 (06:52→11:08)
[2019-12-26] MEDS ORDERED: FUROSEMIDE 20 MG TAB PO ONE (08:42)
[2019-12-26] MEDS: DOCUSATE SODIUM 100 MG CAP PO SCH (08:54)
[2019-12-26] MEDS: LORATADINE 10 MG TAB PO SCH (08:54)
[2019-12-26] MEDS: FERROUS SULFATE 325 MG TAB PO SCH (08:55)
[2019-12-26] MEDS: APIXABAN 2.5 MG TAB PO SCH (08:55)
[2019-12-26] MEDS: LACTOBACILLUS ACIDOPHILUS (FLORANEX) TAB PO SCH (08:56)
[2019-12-26] MEDS: guaiFENesin 600 MG TABCR PO SCH (08:57)
[2019-12-26] MEDS: POTASSIUM CHLORIDE 20 MEQ TABCR PO SCH (08:57)
[2019-12-26] MEDS: OMEGA-3 (PURIFIED FISH OIL) 1 GM CAP PO SCH (08:58)
[2019-12-26] MEDS: CEROVITE ADV FORMULA TAB PO SCH (08:58)
[2019-12-26] MEDS: ATENOLOL 50 MG TABLET PO SCH (08:59)
[2019-12-26] MEDS: CLOPIDOGREL BISULFATE 75 MG TAB PO SCH (08:59)
[2019-12-26] MEDS: FAMOTIDINE 20 MG TAB PO SCH (08:59)
[2019-12-26] MEDS: ASCORBIC ACID 500 MG TAB PO SCH (09:00)
[2019-12-26] MEDS: CHOLECALCIFEROL 1,000 UNITS 25 MCG TAB PO SCH (09:01)
--- NOTE | 2019-12-26 10:48 | Discharge Summary ---
Date of Service December 26, 2019 Admission HPI Per Admitting Provider Maria M Victor is an 89 year old female who presents to the ER from [facility] due to acute hypoxia of 70% after upper respiratory symptoms that started on Wednesday (3 days prior to admission). Her symptoms have been getting progressively worse and she has had much more upper airway secretions. CXR taken at [facility] and was relatively equivocal fro PNA (on background of chronic lung changes). She was given duonebs and felt some improvement with these. Initially had planned on getting IM cefepime to start today however this morning her O2 sats went down to 70% (on room air usually). History is limited from the patient due to her dementia, although she appears much more cognitive than when I last admitted her for her foot cellulitis. In the ER she was given a dose of cefepime and lasix 20mg IV and started on BiPAP with quick improvement of her O2 sats to 97%. With regards to her chronic osteomyelitis she is continuing on levaquin possibly lifelong. Family at bedside report no acute changes in this. No cellulitic changes. Admission Exam Per Admitting Provider Constitutional: + not well nourished, no acute distress (after taking BiPAP off, sats 93% RA and patient more relaxed) and no altered mental status (at baseline) ENMT: Ears: no external ear abnormality Nose: no external nose abnormality Mouth: + dry oral mucous membranes (mild) Neck: normal visual inspection and trachea midline Respiratory: + cough; no respiratory distress, no labored breathing and does not use accessory muscles Auscultation: + rhonchi (throughout); breath sounds present, no diminished lung sounds and no wheezes Cardiovascular: Rate/Rhythm: regular rate and + irregularly irregular Heart Sounds: no murmur Vessels: no JVD Extremities: normal capillary refill (except on necrotic right toes); no calf tenderness and no pedal edema Gastrointestinal (Abdomen): Inspection/Auscultation: normal bowel sounds Percussion/Palpation: abdomen soft; abdomen nontender, no guarding and abdomen not rigid Musculoskeletal: Grossly moving all 4 limbs without pain Skin: gangrenous toes on right foot without surrounding cellulitic changes Neurologic: moves all extremities, awake and + confused (at baseline) Psychiatric: Orientation: alert; + not oriented x 3 Principal Diagnosis Acute Hypoxic respiratory failure Discharge Exam General: Alert, oriented. No acute distress sitting up in bed reading Skin: No noted rashes or bruises Psych: Appropriate mood and affect Neuro: No gross deficits HEENT: NC/AT Chest: Nontender to palpation. CV: RRR, Normal s1, s2. No murmurs appreciated Resp: Breath sounds coarse bilaterally, no increased effort of breathing. Abdomen: Soft, nontender, nondistended. No guarding. No organomegaly appreciated. Extremities:lower extremities bilaterally in boots, with darkened toes noted on right foot. Discharge Data Allergies Allergy/AdvReac Type Severity Reaction Status Date / Time amoxicillin Allergy Mild Rash Verified 12/27/19 13:24 Consultations 12/21/19 17:24 ED Decision to Admit Stat Hospital Course (1) Acute respiratory failure with hypoxia: Pt is an 89-year-old female was admitted on 21 December 2019 for URI symptoms as well as hypoxia. Discharged on Dec 26, 2019 back to [facility]. Acute hypoxic respiratory failure -SpO2 70% prior to arrival. -resolved on discharge, on room air. -Continue BiPAP when sleeping. Acute diastolic heart failure with bilateral pleural effusion -June 2019 TTE noted EF 60-65%, severe LVH, and multiple valvular issues. -09Feb CXR read as improved effusions. -Received periodic doses of Lasix, last on 12/26/2019. continue administering periodic low doses as needed. -negative 2.5L on discharge. Acute URI with underling mucous plugging - Nasal MRSA, influenza, and procalcitonin negative. - BCx NGTD. - had one IV dose of cefepime in the ED on admission. didn't continue due to no concern of pneumonia - Continued scheduled duonebs. - started chest percussion therapy and flutter valve. -continued mucinex - HTN, HLD, PAD, sick sinus syndrome: History of pacemaker placement. On home atenolol, Lipitor, Plavix, potassium supplements, iron. - Central sleep apnea: History of same during acute illness. Using bipap at night. - CKD stage 3: Admit Cr 1.37 (with baseline around 1.1). Presently stable around 1.13. - Atrial fibrillation: Rate controlled with atenolol. On apixaban. Has pacemaker. - Chronic right foot osteomyelitis: Admit from Nov 27- for same, notable for ESBL E coli. On Levaquin due to CKD. Plans for conservative management. Wound care consulted. - Dementia, Parkinson's disease, prior TIA. Stable. - Hypothyroidism: 03Feb TSH 22.7 with normal free T4. On home Synthroid. - Hiatal hernia: Seen on chest x-ray and prior CT chest. On home Pepcid. - Prior DVT. Code status: Conditional: Yes to invasive airway artificial ventilation. No chest compressions and cardiac defibrillation. Diet: Regular, pured. DVT prophy: Apixaban. PT/OT: PT notes her current mobility is at baseline, thus no role for PT presently while hospitalized. Total Time Total Time Spent Total Time Spent (In Minutes): see attending attestation Discharge Plan Discharge Items Patient Disposition: Transfer [facility] Reason For Visit: SHORTNESS OF BREATH,HYPOXIA Discharge Diagnosis: Acute hypoxic respiratory failure Activity: Per Instructions section Non-emergency contact: Primary Care Provider Call non-emergency contact if: your symptoms worsen and you have a fever Follow-up/Referrals: Jorge Aggarwal [Primary Care Provider] - Diet: Regular Diet Texture: Pureed (blended smooth) Addtl Attending Provider Instructions: Pt is an 89-year-old female was admitted on 21 December 2019 for URI symptoms as well as hypoxia. Discharged on Dec 26, 2019. Summary instructions: -Periodic Lasix 20mg PO to help with fluid overload -continue supplemental oxygen as needed/bipap at night -continue scheduled duonebs -continue chest percussion and flutter valve -continue mucinex Acute hypoxic respiratory failure -SpO2 70% prior to arrival. -resolved on discharge, on room air. -Continue BiPAP when sleeping. Acute diastolic heart failure with bilateral pleural effusion -June 2019 TTE noted EF 60-65%, severe LVH, and multiple valvular issues. -09Feb CXR read as improved effusions. -Receiving periodic doses of Lasix, last on 12/26/2019. -continue administering periodic low doses as needed. ?Pneumonia - ? aspiration. - Nasal MRSA, influenza, and procalcitonin negative. - BCx NGTD. - Admitted on Levaquin (same as for chronic osteo). had one IV dose of cefepime in the ED on admission. - Continue scheduled duonebs. - continue chest percussion therapy and flutter valve. - HTN, HLD, PAD, sick sinus syndrome: History of pacemaker placement. On home atenolol, Lipitor, Plavix, potassium supplements, iron. - Central sleep apnea: History of same during acute illness. Using bipap at night. - CKD stage 3: Admit Cr 1.37 (with baseline around 1.1). Presently stable around 1.2. - Atrial fibrillation: Rate controlled with atenolol. On apixaban. Has pacemaker. - Chronic right foot osteomyelitis: Admit from Nov 27- for same, notable for ESBL E coli. On Levaquin due to CKD. Plans for conservative management. Wound care consulted. - Dementia, Parkinson's disease, prior TIA. Stable. - Hypothyroidism: 03Feb TSH 22.7 with normal free T4. On home Synthroid. - Hiatal hernia: Seen on chest x-ray and prior CT chest. On home Pepcid. - Prior DVT. Code status: Conditional: Yes to invasive airway artificial ventilation. No chest compressions and cardiac defibrillation. Diet: Regular, pured. DVT prophy: Apixaban. PT/OT: PT notes her current mobility is at baseline, thus no role for PT presently while hospitalized. Pending Studies at Discharge: No Stand-Alone Forms: My [facility] Skilled Items Patient informed of condition?: Yes DNR: Yes (However, wants invasive airway artificial ventilation) Discharge Level of Care: Skilled Communicable Disease: No Discharge Prognosis: Stable Lines: None Urinary Catheter: No Medications and DC Order Prescriptions: New guaifenesin [Mucinex] 600 mg Tablet Extended Release 12hr 600 mg PO Q12 14 Days Qty: 28 RF: 0 Continued acetaminophen 325 mg capsule 650 mg PO Q6H MDD 3 GMS APAP/24 HOURS PRN (Reason: Fever Or Pain) RF: 0 clopidogrel 75 mg tablet 75 mg PO QAM RF: 0 ferrous sulfate 325 mg (65 mg iron) tablet 325 mg PO BID RF: 0 loratadine [Claritin] 10 mg tablet 10 mg PO QAM RF: 0 docusate sodium 100 mg Capsule 100 mg PO BID Qty: 60 RF: 0 atorvastatin 40 mg Tablet 40 mg PO QPM RF: 0 famotidine 20 mg Tablet 20 mg PO BID RF: 0 potassium chloride 20 mEq Tablet Extended Release 20 meq PO QAM RF: 0 cyclosporine 0.05 % Drops 1 drp OPB BID RF: 0 Eliquis 2.5 mg Tablet 2.5 mg PO BID RF: 0 magnesium hydroxide [Milk of Magnesia] 400 mg/5 mL Suspension 30 ml PO DIRECTED PRN (Reason: Constipation) RF: 0 sodium chloride [Saline Nasal] 0.65 % Aerosol,[place] 2 spray INTRANASAL Q24H PRN (Reason: Allergic Rhinitis) RF: 0 ascorbic acid (vitamin C) [Vitamin C] 250 mg Tablet 250 mg PO BID RF: 0 cholecalciferol (vitamin D3) [Vitamin D3] 1,000 unit Tablet,Chewable 1,000 unit PO QAM RF: 0 atenolol 50 mg Tablet 50 mg PO BID Qty: 60 RF: 0 lidocaine HCl 10 mg/mL (1 %) solution See Rx Instructions .ROUTE .COMPLEX RF: 0 albuterol sulfate 2.5 mg /3 mL (0.083 %) Solution For Nebulization 2.5 mg INHALATION Q2H PRN (Reason: Shortness Of Breath Or Wheezing) RF: 0 albuterol sulfate 2.5 mg /3 mL (0.083 %) Solution For Nebulization 2.5 mg INHALATION QID RF: 0 bisacodyl [Dulcolax (bisacodyl)] 10 mg Suppository 10 mg TX DIRECTED PRN (Reason: Constipation) RF: 0 Fleet Enema 19-7 gram/118 mL Enema 118 ml TX DIRECTED PRN (Reason: Constipation) RF: 0 levothyroxine 112 mcg Tablet 112 mcg PO DAILY RF: 0 oxycodone 5 mg tablet 5 mg PO BID RF: 0 Therems-M 27-0.4 mg Tablet 1 tab PO QAM RF: 0 omega 1-mzr-vhp-fish oil [Fish Oil] 1,000 mg (120 mg-180 mg) Capsule 1 cap PO QAM RF: 0 tramadol 50 mg tablet 100 mg PO Q6H PRN (Reason: Pain, Severe) RF: 0 levofloxacin 750 mg tablet 750 mg PO Q2D RF: 0 Lactobacillus acidoph-L.bulgar [Floranex] 1 million cell tablet 4 tab PO QID RF: 0 Discontinued cefepime 1 gram recon soln 500 mg IM Q24H RF: 0 Discharge Orders: Discharge Order (Routine); Ordered 12/26/19 Ordered By: Sherry Mancuso Admission Data Admit Date/Time: 12/21/19 19:20 Attending Provider: Olivia Goldberg Admit Provider: Nicolas Bell Primary Care Provider: Jorge Aggarwal Other Providers: Jorge Aggarwal ; Nicolas Bell ; Abhijeet George Other Interventions: Discharge Summary Assessment (RN) Last Done: 12/26/19 11:46 DC Date/Time DO NOT enter until pt leaves facility: 12/26/19 13:00 Supervising Physician Co-Signing Physician Notes Resident Physician Supervision Note: I independently interviewed and examined the patient and verified the jacome history and physical, reviewed labs and image studies, discussed the case with the resident Dr. Mancuso and agree with the findings and care plan. Resident Activity Tracking Resident Involvement: Resident Care Provided Care Provided: Adult Hospital Medicine
--- NOTE | 2019-12-29 07:18 | Coding Query ---
CODING QUERY To promote full compliance with coding requirements relating to patient care, provider participation is requested in all cases of risk manager uncertainty. Please assist us with the question(s) below: Coding Question(s): Patient admitted with acute respiratory failure with hypoxia .. Sp02 prior to admission 70% Bipap initiated. Acute bronchitis documented as well as Pneumonia/? Aspiration in progress notes and D/S. Please check below the phrase that describes the Pneumonia Thanks for your help!! Physician's Response(s): Patient admitted with: (check one) CAP Aspiration Pneumonia ___x Patient did not have pneumonia Cannot Clinically Correlate if patient had Pneumonia Other/ Please document: Principal Diagnosis: "that condition established after study, to be chiefly responsible for occasioning the admission of the patient to the hospital for care." Co-Existing Principal Diagnosis: "when two or more diagnoses equally meet the criteria for principal diagnosis as determined by the circumstances of admission, diagnostic work up, and/or therapy provided, and the Alphabetic Index, Tabular List, or another coding guideline does not provide sequencing direction, any one of the diagnoses may be sequenced first." "When the physician has documented what appears to be a current diagnosis in the body of the record, but has not included the diagnosis in the final diagnostic statement, the physician should be asked whether the diagnosis should be added." (Source Coding [facility] 2 QTR90. p3-4) VALDEZ
== END 2019-12-26 13:00 | DRG 205 ==
LOC: ED 14:25 → 2S 19:20 → SUATTDRO 19:20 → 2S 19:56 → 4W 12-22 16:24

== ENCOUNTER 2020-03-15 22:07 | Inpatient (IN) ==
[2020-03-15] MEDS ORDERED: SODIUM CHLORIDE 0.9% 1000ML 1,000 ML IV ONE (22:13)
--- NOTE | 2020-03-15 22:28 | Emergency Department Note ---
History of Present Illness General Chief complaint: Unresponsive Time Seen by Provider: 03/15/20 22:13 History of Present Illness Provider complaint: Altered mental status Onset (ago): hour(s) (4.5) 89-year-old female presents emergency department for altered mental status. Patient is a poor historian and is unable to give history. History is provided by EMS. Per EMS, they got a call to the [facility] and the patient was acting sluggish and lethargic began at 6 PM. She is currently being treated for pneumonia. History of TIA. Home Medications Home Medications Medication Instructions Recorded Confirmed Type acetaminophen 325 mg capsule 650 mg PO Q6H PRN cap MDD 3 GMS 07/11/18 03/15/20 History APAP/24 HOURS clopidogrel 75 mg tablet 75 mg PO QAM tab 07/11/18 03/15/20 History ferrous sulfate 325 mg (65 mg 325 mg PO BID tab 07/11/18 03/15/20 History iron) tablet loratadine 10 mg tablet 10 mg PO QAM 07/11/18 03/15/20 History Eliquis 2.5 mg PO BID 06/21/19 03/15/20 History ascorbic acid (vitamin C) [Vitamin 250 mg PO BID 06/21/19 03/15/20 History C] cholecalciferol (vitamin D3) 1,000 unit PO QAM 06/21/19 03/15/20 History [Vitamin D3] magnesium hydroxide [Milk of 30 ml PO DIRECTED PRN 06/21/19 03/15/20 History Magnesia] sodium chloride [Saline Nasal] 2 spray INTRANASAL Q24H PRN 06/21/19 03/15/20 History atenolol 50 mg PO BID #60 tab 06/26/19 03/15/20 Rx docusate sodium 100 mg PO BID #60 cap 11/10/19 03/15/20 Rx atorvastatin 40 mg PO QPM 11/27/19 03/15/20 History cyclosporine 1 drp OPB BID 11/27/19 03/15/20 History famotidine 20 mg PO BID 11/27/19 03/15/20 History potassium chloride 20 meq PO QAM 11/27/19 03/15/20 History Fleet Enema 118 ml [place] DIRECTED PRN 12/21/19 03/15/20 History Lactobacillus acidoph-L.bulgar 4 tab PO QID 12/21/19 03/15/20 History [Floranex] Therems-M 1 tab PO QAM 12/21/19 03/15/20 History bisacodyl [Dulcolax (bisacodyl)] 10 mg [place]Y DIRECTED PRN 12/21/19 03/15/20 History levofloxacin 750 mg PO Q2D 12/21/19 03/15/20 History omega 1-qbn-lgv-fish oil [Fish Oil] 1 cap PO QAM 12/21/19 03/15/20 History oxycodone 5 mg PO BID 12/21/19 03/15/20 History tramadol 50 mg PO Q6H PRN 12/21/19 03/15/20 History doxycycline hyclate 100 mg PO BID 03/15/20 03/15/20 History furosemide 20 mg PO DAILY 03/15/20 03/15/20 History guaifenesin [Mucinex] 600 mg PO Q12H 03/15/20 03/15/20 History levothyroxine 200 mcg PO DAILY 03/15/20 03/15/20 History melatonin 3 mg PO HS 03/15/20 03/15/20 History oxycodone 10 mg PO HS 03/15/20 03/15/20 History Allergies Allergy/AdvReac Type Severity Reaction Status Date / Time amoxicillin Allergy Mild Rash Verified 03/15/20 23:18 Past Med/Surg History Medical History A-fib Born in [facility] (Chronic) Chronic kidney disease (Chronic) Chronic osteomyelitis (Chronic) Cellulitis. Second toe looking possible early stages of ischemic necrosis. Wounds on toes 1-4. xray unchanged. continue IV antibiotics. discussed with daughter on phone. Only way to effectively treat big toe osteo is with amputation. lesser to wounds likely impacted by vascular disease. consider transmet or BKA as she is nonambulatory. Daughter to discuss with siblings but does not appear to be in favor of surgery at this time. Big toe osteo and wounds of lesser toes could contribute to recurrent cellulitis. PSS DVT (deep venous thrombosis) (Chronic) Dyslipidemia (Chronic) E. coli septicemia (Resolved) Encounter for colonoscopy due to history of adenomatous colonic polyps (Chronic) Exploratory laparotomy scar (Chronic) Gram-negative bacteremia (Resolved) HTN (hypertension) (Chronic) Hypothyroid (Chronic) Metabolic encephalopathy Osteoporosis (Chronic) Pacemaker Parkinson disease (Chronic) Peripheral arterial disease (Chronic) Sepsis (Resolved) Sick sinus syndrome TIA (transient ischemic attack) (Chronic) UTI (urinary tract infection) (Acute) Surgical History History of tonsillectomy and adenoidectomy (Chronic) Hx of cardiac pacemaker Family History Other Family history non-contributory Social History Preferred Language: Occitan Communication Ability: Impaired Service Station Operator Required: No Beliefs That Will Affect Care: None marital status: / Current Living Situation: [facility] Current Living Situation Comment: [facility] Feels Safe at Home: Yes Smoking Status: Unknown if ever smoked Hx Alcohol Use: No Hx Substance Use: No Review of Systems Unobtainable due to cognitive status Physical Exam Vital Signs Vital Signs - 24 hr 03/15/20 22:19 03/15/20 22:43 03/15/20 22:53 Temperature 36.8 C Temperature Source Oral Pulse Rate 80 79 Pulse Rate [Forehead] 83 Pulse Rate from SpO2 Sensor 80 Respiratory Rate 22 22 20 Respiratory Effort / Characteristics Non-Labored Spontaneous Spontaneous Respiratory Depth Normal Respiratory Pattern Regular Blood Pressure 99/43 L 99/63 L Blood Pressure Mean 61 88 Pulse Oximetry 100 95 94 Oxygen Delivery Method High Flow Nasal Cannula High Flow Nasal Cannula High Flow Nasal Cannula Oxygen Flow Rate 30 25 25 Fraction of Inspired Oxygen 40 Sepsis Recent Fever Within 48 Hours No Sepsis New/Unexplained Change in Mental Status Yes Sepsis Action Taken by Nursing No Action Required 03/15/20 23:05 Temperature Temperature Source Pulse Rate 81 Pulse Rate [Forehead] Pulse Rate from SpO2 Sensor 80 Respiratory Rate 18 Respiratory Effort / Characteristics Respiratory Depth Respiratory Pattern Blood Pressure 96/47 L Blood Pressure Mean 67 Pulse Oximetry 95 Oxygen Delivery Method High Flow Nasal Cannula Oxygen Flow Rate 25 Fraction of Inspired Oxygen Sepsis Recent Fever Within 48 Hours Sepsis New/Unexplained Change in Mental Status Sepsis Action Taken by Nursing Physical Exam EYES: Conjunctivae and EOM are normal. Pupils are equal, round, and reactive to light. Right eye exhibits no discharge. Left eye exhibits no discharge. No scleral icterus. CV: Normal rate, regular rhythm, normal heart sounds and intact distal pulses. There is no peripheral edema. Palpable radial pulses bue. PULM/CHEST: Rhonchi bilaterally ABD: The abdomen is soft. NEURO: GCS eye subscore is 4. GCS verbal subscore is 1. GCS motor subscore is 4. Course Course 2219: The patient was evaluated in room B1. A complete history and physical exam was performed. Patient has paperwork from [facility] stating that she is a DNR. EMR reviewed. Patient has a history of Parkinson's disease, osteomyelitis, pleural effusion, dementia, UTI, sepsis, A. fib, TIA, CKD stage III, tachybradycardia syndrome. Patient was hypoxic on room air. Oxygen level improved with nonrebreather. Patient transitioned to high flow oxygen nasal cannula. Patient does have paperwork here stating she is a DNR. 2346: Vital signs stable on high flow oxygen. Labs show leukocytosis of 14.19. Creatinine 1.76. Lactate 2.8. Troponin 0 0.125. Patient's checks x-ray shows pleural effusions versus consolidation. Given the patient's hypoxia, will treat her as pneumonia. Vancomycin and cefepime ordered for the patient. Patient will be admitted [place] [facility] [place] group Dr. Funes. Administered Medications Vancomycin HCl 1,250 mg/ (Sodium Chloride) 525 mls @ 200 mls/hr IV NOW ONE Stop: 03/16/20 01:41 Last Admin: 03/15/20 23:23 Dose: 200 mls/hr Documented by: [id number] Discontinued Medications Sodium Chloride (Nss 1000ml) 1,000 mls @ 999 mls/hr IV .Q1H1M ONE Stop: 03/15/20 23:13 Last Admin: 03/15/20 22:57 Dose: 125 mls/hr Documented by: [id number] Cefepime HCl (Maxipime) 2,000 mg in 20 mls @ 5 mls/min IV NOW STA; Protocol Stop: 03/15/20 23:07 Last Admin: 03/15/20 23:11 Dose: 5 mls/min Documented by: [id number] Medical Decision Making Laboratory Data Result diagrams: 03/15/20 22:33 03/15/20 22:33 Lab Results 03/15/20 03/15/20 03/15/20 Range/Units 22:33 22:33 22:33 WBC 14.19 H (4.8-10.8) K/uL RBC 4.33 (4.2-5.4) M/uL Hgb 12.8 (12.0-16.0) g/dL Hct 40.4 (37-47) % MCV 93.3 (80-100) fL MCH 29.6 (25-34) pg MCHC 31.7 L (32-36) g/dL RDW Std Deviation 66.3 H (36.4-46.3) fL RDW Coeff of Stephani 19.7 H (11.5-14.5) % Plt Count 201 (130-400) K/uL MPV 10.6 H (7.4-10.4) fL Immature Gran % (Auto) 0.6 % Neut % (Auto) 86.3 % Lymph % (Auto) 6.5 % [place] % (Auto) 6.3 % Eos % (Auto) 0.1 % Baso % (Auto) 0.2 % Immature Gran # (Auto) 0.08 H (0.00-0.02) K/uL Neut # (Auto) 12.26 H (1.4-6.5) K/uL Lymph # (Auto) 0.92 L (1.2-3.4) K/uL [place] # (Auto) 0.89 H (0.11-0.59) K/uL Eos # (Auto) 0.01 (0-0.5) K/uL Baso # (Auto) 0.03 (0-0.2) K/uL PT 15.0 H (9.0-12.0) Seconds INR 1.4 H (0.9-1.1) APTT 40.2 H (21.0-31.0) Seconds PTT Ratio 1.4 VBG pH (7.36-7.41) VBG pCO2 (38-50) mmHg VBG pO2 mmHg VBG HCO3 mmol/L VBG O2 Saturation % VBG Base Excess mEq/L Barometric Pressure mm/Hg Sodium 152 H (136-145) mmol/L Potassium 4.3 (3.5-5.1) mmol/L Chloride 122 H (98-107) mmol/L Carbon Dioxide 23 (21-32) mmol/L Anion Gap 7.0 (3-11) BUN 52 H (7-18) mg/dl Creatinine 1.76 H (0.6-1.2) mg/dl Est Cr Clr Drug Dosing Not Reportable Est GFR ( Amer) 29.2 Est GFR (Non-Af Amer) 25.2 BUN/Creatinine Ratio 29.8 H (10-20) Glucose 123 H (70-99) mg/dl Lactate (0.4-2.0) mmol/L Calcium 8.7 (8.5-10.1) mg/dl Magnesium 2.4 (1.8-2.4) mg/dl Total Bilirubin 0.6 (0.2-1) mg/dl AST 98 H (15-37) U/L ALT 116 H (12-78) U/L Alkaline Phosphatase 134 H (45-117) U/L Troponin I 0.125 H* (0-0.045) ng/ml Total Protein 6.1 L (6.4-8.2) gm/dl Albumin 2.2 L (3.4-5.0) gm/dl Globulin 3.9 (2.5-4.0) gm/dl Albumin/Globulin Ratio 0.6 L (0.9-2) Urine Color Urine Appearance (Clear) Urine pH (4.5-7.5) Ur Specific [place] (1.000-1.030) Urine Protein (Negative) Urine Glucose (UA) (Negative) Urine Ketones (Negative) Urine Blood (Negative) Urine Nitrite (Negative) Urine Bilirubin (Negative) Urine Urobilinogen (Negative) Ur Leukocyte Esterase (Negative) 03/15/20 03/15/20 03/15/20 Range/Units 22:33 22:33 23:05 WBC (4.8-10.8) K/uL RBC (4.2-5.4) M/uL Hgb (12.0-16.0) g/dL Hct (37-47) % MCV (80-100) fL MCH (25-34) pg MCHC (32-36) g/dL RDW Std Deviation (36.4-46.3) fL RDW Coeff of Stephani (11.5-14.5) % Plt Count (130-400) K/uL MPV (7.4-10.4) fL Immature Gran % (Auto) % Neut % (Auto) % Lymph % (Auto) % [place] % (Auto) % Eos % (Auto) % Baso % (Auto) % Immature Gran # (Auto) (0.00-0.02) K/uL Neut # (Auto) (1.4-6.5) K/uL Lymph # (Auto) (1.2-3.4) K/uL [place] # (Auto) (0.11-0.59) K/uL Eos # (Auto) (0-0.5) K/uL Baso # (Auto) (0-0.2) K/uL PT (9.0-12.0) Seconds INR (0.9-1.1) APTT (21.0-31.0) Seconds PTT Ratio VBG pH 7.34 L (7.36-7.41) VBG pCO2 48 (38-50) mmHg VBG pO2 32 mmHg VBG HCO3 25 mmol/L VBG O2 Saturation < 60.0 % VBG Base Excess -1.2 mEq/L Barometric Pressure 731.2 mm/Hg Sodium (136-145) mmol/L Potassium (3.5-5.1) mmol/L Chloride (98-107) mmol/L Carbon Dioxide (21-32) mmol/L Anion Gap (3-11) BUN (7-18) mg/dl Creatinine (0.6-1.2) mg/dl Est Cr Clr Drug Dosing Est GFR ( Amer) Est GFR (Non-Af Amer) BUN/Creatinine Ratio (10-20) Glucose (70-99) mg/dl Lactate 2.8 H* (0.4-2.0) mmol/L Calcium (8.5-10.1) mg/dl Magnesium (1.8-2.4) mg/dl Total Bilirubin (0.2-1) mg/dl AST (15-37) U/L ALT (12-78) U/L Alkaline Phosphatase (45-117) U/L Troponin I (0-0.045) ng/ml Total Protein (6.4-8.2) gm/dl Albumin (3.4-5.0) gm/dl Globulin (2.5-4.0) gm/dl Albumin/Globulin Ratio (0.9-2) Urine Color Dark Yellow Urine Appearance Cloudy A (Clear) Urine pH 5.0 (4.5-7.5) Ur Specific [place] 1.020 (1.000-1.030) Urine Protein Trace H (Negative) Urine Glucose (UA) Negative (Negative) Urine Ketones Negative (Negative) Urine Blood Negative (Negative) Urine Nitrite Negative (Negative) Urine Bilirubin Negative (Negative) Urine Urobilinogen Negative (Negative) Ur Leukocyte Esterase 2+ H (Negative) Imaging Data Radiologist's Impression: CT OF THE HEAD WITHOUT CONTRAST CLINICAL HISTORY: Altered mental status. COMPARISON STUDY: Head CT November 07, 2019. CT DOSE: 537.48 mGy.cm TECHNIQUE: Helical axial images of the head were obtained without IV contrast. Automated exposure control was utilized for the study. A dose lowering tech nique was utilized adhering to the principles of ALARA. FINDINGS: No acute intracranial hemorrhage, midline shift or mass effect is present. The ventricular system is stable. Ventricular dilatation is due to moderate to marked atrophy. White matter hypodensities unchanged and represent small vessel disease. There are no findings to suggest acute dural sinus thrombosis or acute territorial infarct. The appearance of the brain is unchanged. Extensive intracranial vascular calcification is noted. There are no significant calvarial abnormalities. Visualized portions of the sinuses and mastoid air cells are clear with the exception of mild left sphenoid sinus mucosal thickening. IMPRESSION: No acute intracranial findings. No change in appearance of the brain. ACT 112: Negative or not required by law. Electronically signed by: Sebastián Hernandez M.D. 03/15/2020 10:59 PM Dictated: 03/15/205 Transcribed: 03/15/20 2255 XR chest 1V portable CLINICAL HISTORY: Sepsis. COMPARISON STUDY: Chest CT December 04, 2019. Chest radiograph 12/31/2019. FINDINGS: Patient is rotated. Dual lead left subclavian pacemaker is unchanged in position. There is moderate cardiomegaly with extensive mitral annular calcification. Ymxyg-wd-vqdrncav bilateral pleural effusions with bibasilar op acities are similar to prior exam. There is moderate pulmonary edema. This has increased. There is no pneumothorax. Incidental note is made of severe degenerative changes of both shoulders and a calcified granuloma within the right upper lobe. IMPRESSION: 1. Moderate pulmonary edema. 2. Small to moderate bilateral pleural effusions with bibasilar opacities that could reflect atelectasis or consolidation. ACT 112: Negative or not required by law. Electronically signed by: Sebastián Hernandez M.D. 03/15/2020 11:03 PM Dictated: 03/15/202299 Transcribed: 03/15/202299 ECG Data Additional Comments: Atrial fibrillation with rate of 84. QRS and QTc intervals within normal limits. No ST elevation or ST depression. [facility] Narrative 2219: The patient was evaluated in room B1. A complete history and physical exam was performed. Patient has paperwork from [facility] stating that she is a DNR. EMR reviewed. Patient has a history of Parkinson's disease, ost eomyelitis, pleural effusion, dementia, UTI, sepsis, A. fib, TIA, CKD stage III, tachybradycardia syndrome. Patient was hypoxic on room air. Oxygen level improved with nonrebreather. Patient transitioned to high flow oxygen nasal cannula. Patient does have paperwork here stating she is a DNR. 2346: Vital signs stable on high flow oxygen. Labs show leukocytosis of 14.19. Creatinine 1.76. Lactate 2.8. Troponin 0 0.125. Patient's checks x-ray shows pleural effusions versus consolidation. Given the patient's hypoxia, will treat her as pneumonia. Vancomycin and cefepime ordered for the patient. Patient will be admitted to [facility] [place] Dr. Funes. Impression & Plan Hypoxia, AMS (altered mental status), Sepsis Discharge Plan Visit Data Chief Complaint: Unresponsive ED Provider: Bob Mcfadden Discharge Problem: Hypoxia, AMS (altered mental status), Sepsis Patient Disposition: Admitted As Inpatient Forms Stand Alone Forms: [facility] Prescriptions Prescriptions: No Action acetaminophen 325 mg capsule 650 mg PO Q6H MDD 3 GMS APAP/24 HOURS PRN (Reason: Fever Or Pain) RF: 0 clopidogrel 75 mg tablet 75 mg PO QAM RF: 0 ferrous sulfate 325 mg (65 mg iron) tablet 325 mg PO BID RF: 0 loratadine [Claritin] 10 mg tablet 10 mg PO QAM RF: 0 docusate sodium 100 mg Capsule 100 mg PO BID Qty: 60 RF: 0 atorvastatin 40 mg Tablet 40 mg PO QPM RF: 0 famotidine 20 mg Tablet 20 mg PO BID RF: 0 potassium chloride 20 mEq Tablet Extended Release 20 meq PO QAM RF: 0 cyclosporine 0.05 % Drops 1 drp OPB BID RF: 0 doxycycline hyclate 100 mg tablet 100 mg PO BID RF: 0 levothyroxine 200 mcg Tablet 200 mcg PO DAILY RF: 0 furosemide 20 mg Tablet 20 mg PO DAILY RF: 0 melatonin 3 mg Tablet 3 mg PO HS RF: 0 oxycodone 5 mg tablet 10 mg PO HS RF: 0 guaifenesin [Mucinex] 600 mg Tablet Extended Release 12hr 600 mg PO Q12H RF: 0 Eliquis 2.5 mg Tablet 2.5 mg PO BID RF: 0 magnesium hydroxide [Milk of Magnesia] 400 mg/5 mL Suspension 30 ml PO DIRECTED PRN (Reason: Constipation) RF: 0 sodium chloride [Saline Nasal] 0.65 % Aerosol,[place] 2 spray INTRANASAL Q24H PRN (Reason: Allergic Rhinitis) RF: 0 ascorbic acid (vitamin C) [Vitamin C] 250 mg Tablet 250 mg PO BID RF: 0 cholecalciferol (vitamin D3) [Vitamin D3] 1,000 unit Tablet,Chewable 1,000 unit PO QAM RF: 0 atenolol 50 mg Tablet 50 mg PO BID Qty: 60 RF: 0 bisacodyl [Dulcolax (bisacodyl)] 10 mg Suppository 10 mg [place]Y DIRECTED PRN (Reason: Constipation) RF: 0 Fleet Enema 19-7 gram/118 mL Enema 118 ml WY DIRECTED PRN (Reason: Constipation) RF: 0 oxycodone 5 mg tablet 5 mg PO BID RF: 0 Therems-M 27-0.4 mg Tablet 1 tab PO QAM RF: 0 omega 8-etl-mxy-fish oil [Fish Oil] 1,000 mg (120 mg-180 mg) Capsule 1 cap PO QAM RF: 0 tramadol 50 mg tablet 50 mg PO Q6H PRN (Reason: pain 5-10) RF: 0 levofloxacin 750 mg tablet 750 mg PO Q2D RF: 0 Lactobacillus acidoph-L.bulgar [Floranex] 1 million cell tablet 4 tab PO QID RF: 0 Referrals Referrals: Jorge Aggarwal [Primary Care Provider] - Discharge Problem: AMS (altered mental status) Qualifiers: Altered mental status type: unspecified Qualified Code(s): R41.82 - Altered mental status, unspecified Sepsis Qualifiers: Sepsis type: sepsis due to unspecified organism Sepsis acute organ dysfunction status: unspecified Qualified Code(s): A41.9 - Sepsis, unspecified organism
[2020-03-15 22:44] LABS: Basophils # (auto) 0.03 K/uL (0-0.2); Basophils % (auto) 0.2 %; Eosinophils # (auto) 0.01 K/uL (0-0.5); Eosinophils % (auto) 0.1 %; Hematocrit (blood only) 40.4 % (37-47); Hemoglobin 12.8 g/dL (12.0-16.0); Immature Granulocytes # (auto) 0.08 K/uL (0.00-0.02); Immature Granulocytes % (auto) 0.6 %; Lymphocytes # (auto) 0.92 K/uL (1.2-3.4); Lymphocytes % (auto) 6.5 %; Mean Corpuscular Hemoglobin 29.6 pg (25-34); Mean Corpuscular Hgb Conc 31.7 g/dL (32-36); Mean Corpuscular Volume 93.3 fL (80-100); Mean Platelet Volume 10.6 fL (7.4-10.4); Monocytes # (auto) 0.89 K/uL (0.11-0.59); Monocytes % (auto) 6.3 %; Neutrophils # (auto) 12.26 K/uL (1.4-6.5); Neutrophils % (auto) 86.3 %; Platelet Count 201 K/uL (130-400); RDW Coefficient of Variation 19.7 % (11.5-14.5); RDW Standard Deviation 66.3 fL (36.4-46.3); Red Blood Count 4.33 M/uL (4.2-5.4); White Blood Count 14.19 K/uL (4.8-10.8)
[2020-03-15 22:46] LABS: Base Excess VBG -1.2 mEq/L; HCO3 VBG 25 mmol/L; PCO2 VBG 48 mmHg (38-50); PO2 VBG 32 mmHg; pH VBG 7.34 (7.36-7.41)
[2020-03-15 22:47] LABS: Oxygen Saturation VBG < 60.0 %
[2020-03-15 22:55] LABS: INR 1.4 (0.9-1.1); Partial Thromboplastin Ratio 1.4; Partial Thromboplastin Time 40.2 Seconds (21.0-31.0)
--- NOTE | 2020-03-15 23:01 | CT Scan Report ---
CT OF THE HEAD WITHOUT CONTRAST CLINICAL HISTORY: Altered mental status. COMPARISON STUDY: Head CT November 07, 2019. CT DOSE: 537.48 mGy.cm TECHNIQUE: Helical axial images of the head were obtained without IV contrast. Automated exposure con trol was utilized for the study. A dose lowering technique was utilized adhering to the principles o f ALARA. FINDINGS: No acute intracranial hemorrhage, midline shift or mass effect is present. The ventricular system is stable. Ventricular dilatation is due to moderate to marked atrophy. White matter hypodensi ties unchanged and represent small vessel disease. There are no findings to suggest acute dural sinus thrombosis or acute territorial infarct. The appearance of the brain is unchanged. Extensive intracr anial vascular calcification is noted. There are no significant calvarial abnormalities. Visualized p ortions of the sinuses and mastoid air cells are clear with the exception of mild left sphenoid sinus mucosal thickening. IMPRESSION: No acute intracranial findings. No change in appearance of the brain. ACT 112: Negative or not required by law. Electronically signed by: Sebastián Hernandez M.D. 03/15/2020 10:59 PM
[2020-03-15] MEDS ORDERED: VANCOMYCIN CONSULT ACTIVE PRN (23:04)
[2020-03-15] MEDS ORDERED: CEFEPIME 2,000 MG/20 ML VIAL IV STA (23:04)
[2020-03-15] MEDS ORDERED: VANCOMYCIN HCL 1,250 MG in SODIUM CHLORIDE 0.9% 500 ML IV ONE (23:04)
--- NOTE | 2020-03-15 23:04 | XRay Report ---
XR chest 1V portable CLINICAL HISTORY: Sepsis. COMPARISON STUDY: Chest CT December 04, 2019. Chest radiograph 12/31/2019. FINDINGS: Patient is rotated. Dual lead left subclavian pacemaker is unchanged in position. There is moderate cardiomegaly with extensive mitral annular calcification. Cmeey-[id number]-mbcuddqj bilateral pleura l effusions with bibasilar opacities are similar to prior exam. There is moderate pulmonary edema. Th is has increased. There is no pneumothorax. Incidental note is made of severe degenerative changes of both shoulders and a calcified granuloma within the right upper lobe. IMPRESSION: 1. Moderate pulmonary edema. 2. Small to moderate bilateral pleural effusions with bibasilar opacities that could reflect atelecta sis or consolidation. ACT 112: Negative or not required by law. Electronically signed by: Sebastián Hernandez M.D. 03/15/2020 11:03 PM
[2020-03-15 23:20] LABS: Appearance Urine Cloudy (Clear); Bacteria Urine Automated 3+ (Negative); Bilirubin Urine Negative (Negative); Blood Urine Negative (Negative); Color Urine Dark Yellow; Epithelial Cell Urine Auto 20-30 /lpf (0-5); Glucose Urine UA Negative (Negative); Ketones Urine Negative (Negative); Leukocyte Esterase Urine 2+ (Negative); Nitrite Urine Negative (Negative); Protein Urine Trace (Negative); RBC Urine Automated 0-4 /hpf (0-4); Urobilinogen Urine Negative (Negative); WBC Urine Automated >30 /hpf (0-5)
[2020-03-15 23:32] LABS: Alanine Aminotransferase 116 U/L (12-78); Albumin Globulin Ratio 0.6 (0.9-2); Albumin Level 2.2 gm/dl (3.4-5.0); Alkaline Phosphatase 134 U/L (45-117); BUN Creatinine Ratio 29.8 (10-20); Bilirubin,Total 0.6 mg/dl (0.2-1); Blood Urea Nitrogen 52 mg/dl (7-18); Calcium 8.7 mg/dl (8.5-10.1); Carbon Dioxide 23 mmol/L (21-32); Chloride 122 mmol/L (98-107); Est GFR (African American) 29.2; Est GFR (Non-African American) 25.2; Globulin 3.9 gm/dl (2.5-4.0); Glucose 123 mg/dl (70-99); Sodium 152 mmol/L (136-145); Total Protein 6.1 gm/dl (6.4-8.2); Troponin I 0.125 ng/ml (0-0.045)
[2020-03-15 23:35] LABS: Potassium 4.3 mmol/L (3.5-5.1)
[2020-03-15 23:43] LABS: Aspartate Aminotransferase 98 U/L (15-37); Magnesium 2.4 mg/dl (1.8-2.4)
--- NOTE | 2020-03-15 23:54 | History & Physical Report ---
Date of Service March 15, 2020 Assessment & Plan (1) Acute respiratory failure with hypoxia: Acute respiratory failure with hypoxia/healthcare associated pneumonia/probable aspiration- NPO Previously on Levaquin at the skilled nursing. Place on vancomycin IV and aztreonam IV. Duonebs every 4 hours while awake and every 2 hours when necessary. Continue high flow oxygen, with goal pulse ox of 94%. Solu-Medrol 40 mg IV every 8 hours Follow serial chest x-rays Aspiration precautions Patient does have some associated fluid overload, however, cannot address further at this time due to presence resuscitation status and family requests. Present on Admission?: Yes (2) Healthcare associated bacterial pneumonia: See above Present on Admission?: Yes (3) Sepsis: Borderline blood pressure in the emergency department. Unable to give IV fluids at this time due to associated pulmonary edema and pleural effusions. Patient's family does not want more aggressive therapy done than what is stated above. Present on Admission?: Yes (4) Parkinson disease: Hold on treatment until taking p.o. Present on Admission?: Yes (5) AMS (altered mental status): Secondary to sepsis and bacterial pneumonia with hypoxia Present on Admission?: Yes (6) Peripheral arterial disease: Holding treatment until taking p.o. Present on Admission?: Yes (7) Hypothyroidism: Place on IV levothyroxine Present on Admission?: Yes (8) DVT (deep venous thrombosis): Has been on Eliquis, which will be held until able to take p.o. Placed on SCDs overnight tonight, and then may start heparin subcu therapeutic in the a.m. Present on Admission?: Yes (9) A-fib: Admit to monitored bed. Present on Admission?: Yes (10) CKD (chronic kidney disease), stage III: Creatinine 1.76 upon admission, with baseline range 1.09-1.37. Hold off on IV fluids at this time due to associated pulmonary edema and pleural effusions. Present on Admission?: Yes (11) HTN (hypertension): Hold atenolol, clopidogrel, furosemide, and potassium chloride for now. Present on Admission?: Yes Admission and Anticipated Discharge Date Admission Date: March 15, 2020 Anticipated date of discharge: 03/20/20 History of Present Illness Chief Complaint: The patient presents to the emergency department from [facility] with EMS of report being called to the facility when patient began to act sluggish and lethargic around 6 PM this evening. Primary Care Provider: [facility] The patient is an 89-year-old female resident of [facility] with a past medical history including Parkinson's disease, healthcare associated pneumonia, osteomyelitis, pleural effusion, peripheral arterial disease, central sleep apnea, urinary tract infection, metabolic encephalopathy, sick sinus syndrome, atrial fibrillation, septic shock due to UTI, hypertension, hypothyroidism, hyperlipidemia, chronic kidney disease stage III, DVT and osteomyelitis of right foot. She reportedly was presently being treated for pneumonia with Levaquin. The patient is unable to contribute to her HPI or review of systems due to significantly altered consciousness. Allergies Allergy/AdvReac Type Severity Reaction Status Date / Time amoxicillin Allergy Mild Rash Verified 03/15/20 23:18 Home Medications Home Medications Medication Instructions Recorded Confirmed Type acetaminophen 325 mg capsule 650 mg PO Q6H PRN cap MDD 3 GMS 07/11/18 03/15/20 History APAP/24 HOURS clopidogrel 75 mg tablet 75 mg PO QAM tab 07/11/18 03/15/20 History ferrous sulfate 325 mg (65 mg 325 mg PO BID tab 07/11/18 03/15/20 History iron) tablet loratadine 10 mg tablet 10 mg PO QAM 07/11/18 03/15/20 History Eliquis 2.5 mg PO BID 06/21/19 03/15/20 History ascorbic acid (vitamin C) [Vitamin 250 mg PO BID 06/21/19 03/15/20 History C] cholecalciferol (vitamin D3) 1,000 unit PO QAM 06/21/19 03/15/20 History [Vitamin D3] magnesium hydroxide [Milk of 30 ml PO DIRECTED PRN 06/21/19 03/15/20 History Magnesia] sodium chloride [Saline Nasal] 2 spray INTRANASAL Q24H PRN 06/21/19 03/15/20 History atenolol 50 mg PO BID #60 tab 06/26/19 03/15/20 Rx docusate sodium 100 mg PO BID #60 cap 11/10/19 03/15/20 Rx atorvastatin 40 mg PO QPM 11/27/19 03/15/20 History cyclosporine 1 drp OPB BID 11/27/19 03/15/20 History famotidine 20 mg PO BID 11/27/19 03/15/20 History potassium chloride 20 meq PO QAM 11/27/19 03/15/20 History Fleet Enema 118 ml NJ DIRECTED PRN 12/21/19 03/15/20 History Lactobacillus acidoph-L.bulgar 4 tab PO QID 12/21/19 03/15/20 History [Floranex] Therems-M 1 tab PO QAM 12/21/19 03/15/20 History bisacodyl [Dulcolax (bisacodyl)] 10 mg NJ DIRECTED PRN 12/21/19 03/15/20 History levofloxacin 750 mg PO Q2D 12/21/19 03/15/20 History omega 2-qka-mqo-fish oil [Fish Oil] 1 cap PO QAM 12/21/19 03/15/20 History oxycodone 5 mg PO BID 12/21/19 03/15/20 History tramadol 50 mg PO Q6H PRN 12/21/19 03/15/20 History doxycycline hyclate 100 mg PO BID 03/15/20 03/15/20 History furosemide 20 mg PO DAILY 03/15/20 03/15/20 History guaifenesin [Mucinex] 600 mg PO Q12H 03/15/20 03/15/20 History levothyroxine 200 mcg PO DAILY 03/15/20 03/15/20 History melatonin 3 mg PO HS 03/15/20 03/15/20 History oxycodone 10 mg PO HS 03/15/20 03/15/20 History Past Med/Surg History Medical History A-fib Born in [facility] (Chronic) Chronic kidney disease (Chronic) Chronic osteomyelitis (Chronic) Cellulitis. Second toe looking possible early stages of ischemic necrosis. Wounds on toes 1-4. xray unchanged. continue IV antibiotics. discussed with daughter on phone. Only way to effectively treat big toe osteo is with amputation. lesser to wounds likely impacted by vascular disease. consider transmet or BKA as she is nonambulatory. Daughter to discuss with siblings but does not appear to be in favor of surgery at this time. Big toe osteo and wounds of lesser toes could contribute to recurrent cellulitis. PSS DVT (deep venous thrombosis) (Chronic) Dyslipidemia (Chronic) E. coli septicemia (Resolved) Encounter for colonoscopy due to history of adenomatous colonic polyps (Chronic) Exploratory laparotomy scar (Chronic) Gram-negative bacteremia (Resolved) HTN (hypertension) (Chronic) Hypothyroid (Chronic) Metabolic encephalopathy Osteoporosis (Chronic) Pacemaker Parkinson disease (Chronic) Peripheral arterial disease (Chronic) Sepsis (Resolved) Sick sinus syndrome TIA (transient ischemic attack) (Chronic) UTI (urinary tract infection) (Acute) Surgical History History of tonsillectomy and adenoidectomy (Chronic) Hx of cardiac pacemaker Family History Other Family history non-contributory Social History Preferred Language: Sammarinese Communication Ability: Impaired 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 HEENT--PERRL, EOMI, mucous membranes and oropharynx dry. Neck--supple. No JVD. No bruits. Thyroid normal, trachea midline, no adenopathy. Heart-tachycardic and regular. no murmurs, rubs or gallops. Lungs--coarse breath sounds throughout. Moderate respiratory distress with accessory muscle use. Abdomen--normal bowel sounds and soft. Nontender. Nondistended. Extremities--no cyanosis or clubbing. There is trace bilateral pretibial pitting edema Dermatologic--a few small, healing abrasions on shins bilaterally Neurologic--cranial nerves II through XII grossly intact. Rheumatologic--limited examination, as patient is lying on her left side and curled in the position Psychiatric--unresponsive, but comfortable. Results & Data Results & Data ([facility]) Vital Signs (Past 12 Hours) Vital Signs Temp Pulse Pulse Resp BP Pulse Ox 03/15/20 23:31 81 13 87/38 L 95 03/15/20 23:05 81 18 96/47 L 95 03/15/20 22:53 79 20 99/63 L 94 03/15/20 22:43 83 22 95 03/15/20 22:19 98.2 F 80 22 99/43 L 100 Laboratory Results Laboratory Results WBC 14.19 K/uL (4.8-10.8) H 03/15/20 22:33 RBC 4.33 M/uL (4.2-5.4) 03/15/20 22:33 Hgb 12.8 g/dL (12.0-16.0) 03/15/20 22:33 Hct 40.4 % (37-47) 03/15/20 22:33 MCV 93.3 fL (80-100) 03/15/20 22:33 MCH 29.6 pg (25-34) 03/15/20 22: MCHC 31.7 g/dL (32-36) L 03/15/20 22:33 RDW Std Deviation 66.3 fL (36.4-46.3) H 03/15/20 22:33 RDW Coeff of Stephani 19.7 % (11.5-14.5) H 03/15/20 22:33 Plt Count 201 K/uL (130-400) 03/15/20 22:33 MPV 10.6 fL (7.4-10.4) H 03/15/20 22:33 Immature Gran % (Auto) 0.6 % 03/15/20 22:33 Neut % (Auto) 86.3 % 03/15/20 22:33 Lymph % (Auto) 6.5 % 03/15/20 22:33 Amelia % (Auto) 6.3 % 03/15/20 22:33 Eos % (Auto) 0.1 % 03/15/20 22:33 Baso % (Auto) 0.2 % 03/15/20 22:33 Immature Gran # (Auto) 0.08 K/uL (0.00-0.02) H 03/15/20 22:33 Neut # (Auto) 12.26 K/uL (1.4-6.5) H 03/15/20 22:33 Lymph # (Auto) 0.92 K/uL (1.2-3.4) L 03/15/20 22:33 Amelia # (Auto) 0.89 K/uL (0.11-0.59) H 03/15/20 22:33 Eos # (Auto) 0.01 K/uL (0-0.5) 03/15/20 22:33 Baso # (Auto) 0.03 K/uL (0-0.2) 03/15/20 22:33 PT 15.0 Seconds (9.0-12.0) H 03/15/20 22:33 INR 1.4 (0.9-1.1) H 03/15/20 22:33 APTT 40.2 Seconds (21.0-31.0) H 03/15/20 22:33 PTT Ratio 1.4 03/15/20 22:33 VBG pH 7.34 (7.36-7.41) L 03/15/20 22:33 VBG pCO2 48 mmHg (38-50) 03/15/20 22:33 VBG pO2 32 mmHg 03/15/20 22:33 VBG HCO3 25 mmol/L 03/15/20 22:33 VBG O2 Saturation < 60.0 % 03/15/20 22:33 VBG Base Excess -1.2 mEq/L 03/15/20 22:33 Barometric Pressure 731.2 mm/Hg 03/15/20 22:33 Sodium 152 mmol/L (136-145) H 03/15/20 22:33 Potassium 4.3 mmol/L (3.5-5.1) 03/15/20 22:33 Chloride 122 mmol/L (98-107) H 03/15/20 22:33 Carbon Dioxide 23 mmol/L (21-32) 03/15/20 22:33 Anion Gap 7.0 (3-11) 03/15/20 22:33 BUN 52 mg/dl (7-18) H 03/15/20 22:33 Creatinine 1.76 mg/dl (0.6-1.2) H 03/15/20 22:33 Est Cr Clr Drug Dosing Not Reportable 03/15/20 22:33 Est GFR ( Amer) 29.2 03/15/20 22:33 Est GFR (Non-Af Amer) 25.2 03/15/20 22:33 BUN/Creatinine Ratio 29.8 (10-20) H 03/15/20 22:33 Glucose 123 mg/dl (70-99) H 03/15/20 22:33 Lactate 2.5 mmol/L (0.4-2.0) H* 03/16/20 00:46 Calcium 8.7 mg/dl (8.5-10.1) 03/15/20 22:33 Magnesium 2.4 mg/dl (1.8-2.4) 03/15/20 22:33 Total Bilirubin 0.6 mg/dl (0.2-1) 03/15/20 22:33 AST 98 U/L (15-37) H 03/15/20 22:33 ALT 116 U/L (12-78) H 03/15/20 22:33 Alkaline Phosphatase 134 U/L (45-117) H 03/15/20 22: Troponin I 0.133 ng/ml (0-0.045) H* 03/16/20 00:47 Total Protein 6.1 gm/dl (6.4-8.2) L 03/15/20 22: Albumin 2.2 gm/dl (3.4-5.0) L 03/15/20 22: Globulin 3.9 gm/dl (2.5-4.0) 03/15/20 22: Albumin/Globulin Ratio 0.6 (0.9-2) L 03/15/20 22: Procalcitonin 0.23 ng/ml (0-0.5) 03/15/20 22:33 Urine Color Dark Yellow 03/15/20 23:05 Urine Appearance Cloudy (Clear) A 03/15/20 23:05 Urine pH 5.0 (4.5-7.5) 03/15/20 23:05 Ur Specific [place] 1.020 (1.000-1.030) 03/15/20 23:05 Urine Protein Trace (Negative) H 03/15/20 23:05 Urine Glucose (UA) Negative (Negative) 03/15/20 23:05 Urine Ketones Negative (Negative) 03/15/20 23:05 Urine Blood Negative (Negative) 03/15/20 23:05 Urine Nitrite Negative (Negative) 03/15/20 23:05 Urine Bilirubin Negative (Negative) 03/15/20 23:05 Urine Urobilinogen Negative (Negative) 03/15/20 23:05 Ur Leukocyte Esterase 2+ (Negative) H 03/15/20 23:05 Urine WBC (Auto) >30 /hpf (0-5) H 03/15/20 23:05 Urine RBC (Auto) 0-4 /hpf (0-4) 03/15/20 23:05 U Hyaline Cast (Auto) 5-10 /lpf (0-5) H 03/15/20 23:05 U Epithel Cells (Auto) 20-30 /lpf (0-5) H 03/15/20 23:05 Urine Bacteria (Auto) 3+ (Negative) H 03/15/20 23:05 Diagnostic Findings [facility], [place] [phone] XRay Report Patient: GREGORIO POPE AAdmit Date: 03/15/20 MR#: [id number]: [address] Acct ID:[id number]: [employer] Date: 1930[facility] Zip: [place] [address] Age: 89Location: ED Sex: F Room/Bed: Att Phy:Diagnosis: UNRESPONSIVE Rahel Phy: [place], CrestService Date: 03/15/20 Fam Phy: [place], CrestInterpreting Phy: Sebastián Hernandez MD Admit Phy: Ordering Phy: Bob Mcfadden MD cc: ~ XR chest 1V portable CLINICAL HISTORY: Sepsis. COMPARISON STUDY: Chest CT December 04, 2019. Chest radiograph 12/31/2019. FINDINGS: Patient is rotated. Dual lead left subclavian pacemaker is unchanged in position. There is moderate cardiomegaly with extensive mitral annular calcification. [id number] bilateral pleural effusions with bibasilar opacities are similar to prior exam. There is moderate pulmonary edema. This has increased. There is no pneumothorax. Incidental note is made of severe degenerative changes of both shoulders and a calcified granuloma within the right upper lobe. IMPRESSION: 1. Moderate pulmonary edema. 2. Small to moderate bilateral pleural effusions with bibasilar opacities that could reflect atelectasis or consolidation. ACT 112: Negative or not required by law. Electronically signed by: Sebastián Hernandez M.D. 03/15/2020 11:03 PM Dictated: 03/15/202299 Transcribed: 03/15/20 230 [facility], [place] [phone] CT Scan Report Patient: GREGORIO POPE AAdmit Date: 03/15/20 MR#: [id number]: [address] Acct ID:[id number]: [employer] Date: 1930City Zip: [place] [address] Age: 89Location: ED Sex: F Room/Bed: Att Phy:Diagnosis: UNRESPONSIVE Rahel Phy: [place], CrestService Date: 03/15/20 Fam Phy: [place], CrestInterpreting Phy: eSbastián Hernandez MD Admit Phy: Ordering Phy: Bob Mcfadden MD cc: ~ CT OF THE HEAD WITHOUT CONTRAST CLINICAL HISTORY: Altered mental status. COMPARISON STUDY: Head CT November 07, 2019. CT DOSE: 537.48 mGy.cm TECHNIQUE: Helical axial images of the head were obtained without IV contrast. Automated exposure control was utilized for the study. A dose lowering technique was utilized adhering to the principles of ALARA. FINDINGS: No acute intracranial hemorrhage, midline shift or mass effect is present. The ventricular system is stable. Ventricular dilatation is due to moderate to marked atrophy. White matter hypodensities unchanged and represent small vessel disease. There are no findings to suggest acute dural sinus thrombosis or acute territorial infarct. The appearance of the brain is unchanged. Extensive intracranial vascular calcification is noted. There are no significant calvarial abnormalities. Visualized portions of the sinuses and mastoid air cells are clear with the exception of mild left sphenoid sinus mucosal thickening. IMPRESSION: No acute intracranial findings. No change in appearance of the brain. ACT 112: Negative or not required by law. Electronically signed by: Sebastián Hernandez M.D. 03/15/2020 10:59 PM Dictated: 03/15/205 Transcribed: 03/15/202254 Code Status & VTE Plan Code Status DNR/DNI VTE Prophylaxis Plan VTE Prophylaxis will be ordered: Yes PG Care Time/CCT Total # of Minutes Spent Total Time Spent with Patient: Total time spent is greater than 50% in coordination of care (as documented) at patient's floor/unit and/or counseling patient: Coding Level of Care Code 70416 Initial Inpt Care Lvl 3 Diagnoses Acute respiratory failure with hypoxia J96.01 Healthcare associated bacterial pneumonia J15.9 Sepsis A41.9 Sepsis acute organ dysfunction status: unspecified Sepsis type: sepsis due to unspecified organism Parkinson disease G20 AMS (altered mental status) R41.82 Altered mental status type: unspecified Peripheral arterial disease I73.9 Hypothyroidism E03.9 Hypothyroidism type: unspecified DVT (deep venous thrombosis) I82.409 A-fib I48.11 Atrial fibrillation type: longstanding persistent CKD (chronic kidney disease), stage III N18.3 HTN (hypertension) I10 (1) Sepsis Sepsis acute organ dysfunction status: unspecified Sepsis type: sepsis due to unspecified organism Qualified Code(s): A41.9 - Sepsis, unspecified organism (2) AMS (altered mental status) Altered mental status type: unspecified Qualified Code(s): R41.82 - Altered mental status, unspecified (3) Hypothyroidism Hypothyroidism type: unspecified Qualified Code(s): E03.9 - Hypothyroidism, unspecified (4) A-fib Atrial fibrillation type: longstanding persistent Qualified Code(s): I48.11 - Longstanding persistent atrial fibrillation
[2020-03-16] MEDS ORDERED: ACETAMINOPHEN 1000 MG/100 ML IV IV PRN (02:03)
[2020-03-16] MEDS ORDERED: VANCOMYCIN CONSULT ACTIVE SCH (02:03)
[2020-03-16] MEDS ORDERED: ONDANSETRON INJ 2 MG/ML 2 ML VIAL IV PRN (02:03)
[2020-03-16] MEDS ORDERED: PATIENT'S HEIGHT AND/OR WEIGHT NEEDED SCH (02:30)
[2020-03-16] MEDS: methylPREDNISolone 40 MG in SYRINGE 0 ML IV SCH ×3 (03:15→18:23)
[2020-03-16] MEDS: AZTREONAM 1,000 MG in DEXTROSE 5% 100 ML IV SCH ×3 (04:45→19:29)
[2020-03-16 05:08] LABS: Basophils # (auto) 0.03 K/uL (0-0.2); Basophils % (auto) 0.3 %; Eosinophils # (auto) 0.02 K/uL (0-0.5); Eosinophils % (auto) 0.2 %; Hematocrit (blood only) 39.5 % (37-47); Hemoglobin 12.2 g/dL (12.0-16.0); Immature Granulocytes # (auto) 0.09 K/uL (0.00-0.02); Immature Granulocytes % (auto) 0.8 %; Lymphocytes # (auto) 0.74 K/uL (1.2-3.4); Lymphocytes % (auto) 6.3 %; Mean Corpuscular Hemoglobin 28.7 pg (25-34); Mean Corpuscular Hgb Conc 30.9 g/dL (32-36); Mean Corpuscular Volume 92.9 fL (80-100); Mean Platelet Volume 10.8 fL (7.4-10.4); Monocytes # (auto) 0.51 K/uL (0.11-0.59); Monocytes % (auto) 4.3 %; Neutrophils # (auto) 10.41 K/uL (1.4-6.5); Neutrophils % (auto) 88.1 %; Platelet Count 187 K/uL (130-400); RDW Coefficient of Variation 19.7 % (11.5-14.5); RDW Standard Deviation 65.2 fL (36.4-46.3); Red Blood Count 4.25 M/uL (4.2-5.4)
[2020-03-16 05:14] LABS: INR 1.5 (0.9-1.1); Partial Thromboplastin Ratio 1.6; Partial Thromboplastin Time 44.1 Seconds (21.0-31.0); Prothrombin Time 15.2 Seconds (9.0-12.0)
[2020-03-16 05:39] LABS: BUN Creatinine Ratio 31.2 (10-20); Calcium 8.2 mg/dl (8.5-10.1); Creatinine Clr Calc Pharmacy 17.8 ml/min; Est GFR (African American) 31.6; Est GFR (Non-African American) 27.2; Magnesium 2.2 mg/dl (1.8-2.4); Potassium 4.1 mmol/L (3.5-5.1)
[2020-03-16 05:42] LABS: Albumin Globulin Ratio 0.6 (0.9-2); Bilirubin,Total 0.6 mg/dl (0.2-1); Globulin 3.4 gm/dl (2.5-4.0); Total Protein 5.4 gm/dl (6.4-8.2)
[2020-03-16] MEDS: ALBUT/IPRATROP 3MG/0.5MG NEB 3 ML VIAL NEB SCH ×2 (07:22→11:06)
[2020-03-16] MEDS ORDERED: VANCOMYCIN HCL 1,000 MG in SODIUM CHLORIDE 0.9% 250 ML IV SCH (09:00)
--- NOTE | 2020-03-16 11:18 | Pharmacy Report ---
Pharmacy Abx Initial Consult - Date of Service March 16, 2020 - Pharmacy Dosing Scope Date of Consult: 03/15/2020 Consultation requested by: Dr. Mendoza Pharmacy is consulted to initiate Vancomycin IV dosing therapy, order appropriate labs and adjust drug dose/frequency. - Subjective The patient is a 89 year old F admitted on 03/15/20 23:53. - Objective Height: 4 ft 11 in Weight: 57.2 kg Vital Signs (Past 12hrs): Vital Signs Temp Pulse Pulse Resp BP BP Pulse Ox 03/16/20 09:19 36.9 C 72 20 86/47 L 94 03/16/20 07:24 72 18 99 03/16/20 04:05 36.4 C L 71 14 91/51 L 100 03/16/20 01:58 81 21 98 03/16/20 01:50 36.4 C L 79 18 87/49 L 96 03/16/20 01:32 72 20 87/56 L 100 03/16/20 01:04 81 10 L 87/39 L 98 03/16/20 00:36 73 11 L 87/53 L 98 03/16/20 00:00 80 13 94/43 L 94 03/15/20 23:31 81 13 87/38 L 95 Lab Results (24hrs): Laboratory Tests (24 Hours) 03/16/20 03/16/20 03/15/20 04:10 04:10 22:33 WBC 11.80 H Neut # (Auto) 10.41 H Creatinine 1.65 H Est Cr Clr Drug Dosing 17.8 Procalcitonin 0.23 03/15/20 03/15/20 22:33 22:33 WBC 14.19 H Neut # (Auto) 12.26 H Creatinine 1.76 H Est Cr Clr Drug Dosing Not Reportable Procalcitonin Micro Results: 03/15/20 23:05 Urine Culture - Pending Urine,Straight Cath 03/15/20 22:25 Aerobic Blood Culture - Pending Blood Anaerobic Blood Culture - Pending 03/15/20 22:33 Aerobic Blood Culture - Pending Blood Anaerobic Blood Culture - Pending - Risk Factors for Resistance * Resident in a long term or extended-care facility * Hospitalization for 48 hours or more within the past 90 days * History of infection with a multidrug-resistant organism: * OM of foot growing P. aeruginosa (Resistant to Imipenem) and MRSA (Vanc CHELLE = 2) * ESBL E.coli in urine on multiple occasions * Antimicrobial use within the last 90 days: * Levofloxacin, Cefepime, Doxycycline - Assessment & Plan Assessment 89 year old F admitted secondary to acute hypoxic respiratory failure * Chest XR shows pulmonary edema with bilateral pleural effusions which could represent atelectasis vs consolidation * Suspected Healthcare Associated Pneumonia/Probably Aspiration * Patient is afebrile. WBCs decreased from 14.2K --> 11.8K. Lactate initially 2.8 with repeat of 2.5. PCT was 0.23. * Baseline SCr is 1.1 - 1.2. Elevated at 1.76 upon admission, improved to 1.65 this AM. * Given patient's age, size and renal function, will not order vancomycin today. Plan for random level tomorrow morning to assess need for re-dosing. * Blood and urine cultures pending. MRSA nasal swab positive. COVID-19 PCR negative. Plan IV Vancomycin + Aztreonam (pharmacy not consulted) for treatment of suspected HAP/Aspiration PNA Vancomycin IV * Estimated half-life based on population kinetics is ~ 36 hours. * Loading dose: 1250 mg (~ 22 mg/kg) * Maintenance dose: 500 mg IV (~ 9 mg/kg) every 24 hours * Goal trough level: 15 to 20 mcg/mL * Random level ordered with AM labs tomorrow. Have timed a 500 mg IV vancomycin dose for 03/17 @ 0800 for patient in negative pressure room. Depending on AM random level, may need to add on to the end of the 500 mg infusion tomorrow morning. Chose a lower mg/kg dose at an increased dosing interval because population kinetics often don't apply to this patient population. Aztreonam * 1 gm IV every 8 hours - appropriate per renal function and indication Pharmacy will continue to follow and will adjust dose/frequency as necessary. Thank you.
[2020-03-16 15:26] LABS: BUN Creatinine Ratio 30.8 (10-20); Calcium 8.6 mg/dl (8.5-10.1); Est GFR (African American) 27.7; Est GFR (Non-African American) 23.9; Potassium 4.3 mmol/L (3.5-5.1)
[2020-03-16] MEDS ORDERED: D5W AND 1/2NSS + 20MEQ KCL 20 MEQ/1,000 ML BAG IV SCH (16:15)
--- NOTE | 2020-03-16 16:25 | Hospitalist Progress Note ---
Date of Service March 16, 2020 Assessment & Plan (1) Acute respiratory failure with hypoxia: somewhat difficult to discern etiology, but overall appears much improved from when she came in ---most likely is MRSA pneumonia given that she was on levaquin at SNF and not improving - came here worse - showing good improvement on vanco and cefepime (alternate dx would be quinolone resistant gram negative pneumonia but MRSA would be more likely) ---Sars-CoV-2 swab fortunately negative ---could all be CHF but her low BP, rising creatinine, hypernatremia, dry mucous membranes and initial presentation c/w sepsis all fit with her being dry rather than overloaded (see below) (2) Healthcare associated bacterial pneumonia: See above (3) Sepsis: Borderline blood pressure in the emergency department. delicate fluid balance - but right now while i am hesitant to bolus given CXR appearance and diastolic CHF, she also has reasonable MAP and no tachycardia so bolus likely unnecessary. continue to follow closely overall quite ill but with mentation improving to where she can try to converse with a pleasant look on her face (albeit fairly nonsensical conversation) and hypoxia improving - seems to be showing improvement (4) Diastolic CHF: has LVH and valvular disease- CXR seems c/w failure but the rest of the clinical picture paints more of a setting of dry/volume depleted - gentle/cautious fluids (5) Hypernatremia: likely relates to volume depletion - will try to correct w 1/2 NSS w 20K/L -- if doesn't show improvement then may need D5W but with lower end bp would prefer something that at least has some tonicity to stay in vasculature (but with hypernatremic dehydration would not want to use NSS, and not certain that LR would be low enough Na to provide enough H2O to make a difference) (6) CKD (chronic kidney disease), stage III: EMERY seems to relate to low volume status (see above) - cautious/gentle/slow fluids (7) AMS (altered mental status): Secondary to sepsis and bacterial pneumonia with hypoxia - seems to be improving (8) Parkinson disease: trial of resuming home meds (9) Peripheral arterial disease: cautiously resume home meds (10) Hypothyroidism: once taking PO more reliably can try home meds (11) A-fib: rate controlled (12) HTN (hypertension): hold home meds while pressure so low (13) Elevated troponin: probably mild demand ischemia from pneumonia/physiologic stress - fortunately mild (14) DVT (deep venous thrombosis): SQ heparin --> resume eliquis once able (15) Discharge planning issues: PT/OT eval and treat, anticipate return to [facility] when more stable Admission and Anticipated Discharge Date Admission Date: March 15, 2020 Subjective hard to really gather meaningful HPI or ROS from pt although she will talk some - mostly without a lot of true conversational purpose, but denies pain denies SOB and relates generally feeling reasonable PCP at [facility] informed me that she had cough/CXR w infiltrate earlier in the week - no hypoxia or unresponsiveness - was being treated for pneumonia. he also harbors concerns about her profound debility at baseline. Review of Systems Review of Systems: Other see above - for as much as i can glean ROS is negative except for as above, but exceedingly limited and of questionable veracity given her baseline mental status Physical Exam Physical Exam: gen awake, pleasant, actually off O2 when i see her, nad. heent nc at mm somewhat dry. cardio distant but no r/m/g. lungs surprsingly clear - overall quiet but clear, no noted r/r/w - probably more diminished R side than L, difficult overall exam. no dyspnea visible, no accessory muscles. no significant cough. skin dry no rashes no pallor or icterus. neuro no focal deficits. Results & Data Results & Data ([facility]) Vital Signs (Past 12 Hours) Vital Signs Temp Pulse Resp BP Pulse Ox 03/16/20 15:41 97.9 F 77 18 86/53 L 96 03/16/20 12:22 98.2 F 74 18 91/50 L 97 03/16/20 09:19 98.4 F 72 20 86/47 L 94 03/16/20 07:24 72 18 99 PG Care Time/CCT Total # of Minutes Spent Total Time Spent with Patient: Total time spent is greater than 50% in coordination of care (as documented) at patient's floor/unit and/or counseling patient: Coding Level of Care Code 06425 Subseq Hosp Care Lvl 3 Diagnoses Acute respiratory failure with hypoxia J96.01 Healthcare associated bacterial pneumonia J15.9 Sepsis A41.9 Sepsis acute organ dysfunction status: unspecified Sepsis type: sepsis due to unspecified organism Diastolic CHF I50.30 Hypernatremia E87.0 CKD (chronic kidney disease), stage III N18.3 AMS (altered mental status) R41.82 Altered mental status type: unspecified Parkinson disease G20 Peripheral arterial disease I73.9 Hypothyroidism E03.9 Hypothyroidism type: unspecified A-fib I48.11 Atrial fibrillation type: longstanding persistent HTN (hypertension) I10 Elevated troponin R79.89 DVT (deep venous thrombosis) I82.409 Discharge planning issues Z02.9 (1) Sepsis Sepsis acute organ dysfunction status: unspecified Sepsis type: sepsis due to unspecified organism Qualified Code(s): A41.9 - Sepsis, unspecified organism (2) AMS (altered mental status) Altered mental status type: unspecified Qualified Code(s): R41.82 - Altered mental status, unspecified (3) Hypothyroidism Hypothyroidism type: unspecified Qualified Code(s): E03.9 - Hypothyroidism, unspecified (4) A-fib Atrial fibrillation type: longstanding persistent Qualified Code(s): I48.11 - Longstanding persistent atrial fibrillation
[2020-03-16] MEDS: MELATONIN 3 MG TAB PO SCH (20:10)
[2020-03-16] MEDS: APIXABAN 2.5 MG TAB PO SCH (20:10)
[2020-03-17] MEDS: methylPREDNISolone 40 MG in SYRINGE 0 ML IV SCH ×2 (02:22→10:04)
[2020-03-17] MEDS: AZTREONAM 1,000 MG in DEXTROSE 5% 100 ML IV SCH ×3 (03:51→19:39)
[2020-03-17] MEDS ORDERED: VANCOMYCIN RANDOM ONE (05:00)
[2020-03-17] MEDS: LEVOTHYROXINE SODIUM 200 MCG TABLET PO SCH (05:45)
[2020-03-17] MEDS ORDERED: VANCOMYCIN HCL 500 MG in SODIUM CHLORIDE 0.9% 250 ML IV SCH (06:00)
[2020-03-17] MEDS: APIXABAN 2.5 MG TAB PO SCH ×2 (07:34→20:59)
[2020-03-17] MEDS: CLOPIDOGREL BISULFATE 75 MG TAB PO SCH (07:35)
[2020-03-17 08:31] LABS: Basophils # (auto) 0.01 K/uL (0-0.2); Basophils % (auto) 0.1 %; Hematocrit (blood only) 40.8 % (37-47); Immature Granulocytes # (auto) 0.11 K/uL (0.00-0.02); Immature Granulocytes % (auto) 0.9 %; Lymphocytes # (auto) 0.73 K/uL (1.2-3.4); Lymphocytes % (auto) 5.8 %; Mean Corpuscular Hemoglobin 29.5 pg (25-34); Mean Corpuscular Hgb Conc 31.9 g/dL (32-36); Mean Corpuscular Volume 92.7 fL (80-100); Mean Platelet Volume 10.6 fL (7.4-10.4); Monocytes # (auto) 0.38 K/uL (0.11-0.59); Neutrophils # (auto) 11.39 K/uL (1.4-6.5); Neutrophils % (auto) 90.2 %; Nucleated RBC # (auto) 0.06 K/uL (0-0); Nucleated RBC % (auto) 0.5 %; Platelet Count 208 K/uL (130-400); RDW Coefficient of Variation 19.8 % (11.5-14.5); RDW Standard Deviation 65.9 fL (36.4-46.3); White Blood Count 12.62 K/uL (4.8-10.8)
--- NOTE | 2020-03-17 08:50 | Electrocardiogram Report ---
Test Reason : Blood Pressure : / mmHG Vent. Rate : 084 BPM Atrial Rate : 082 BPM P-R Int : 000 ms QRS Dur : 000 ms QT Int : 400 ms P-R-T Axes : 000 112 169 degrees QTc Int : 472 ms Poor data quality, interpretation may be adversely affected Atrial fibrillation with premature ventricular or aberrantly conducted complexes Low voltage QRS Nonspecific ST and T wave abnormality Abnormal ECG When compared with ECG of 31-DEC-2019 11:36, No significant change Confirmed by Nicola Pacheco ([id number]) on 03/17/2020 8:50:14 AM Referred By: [facility] Confirmed By:Nicola Pacheco
[2020-03-17 09:25] LABS: BUN Creatinine Ratio 28.9 (10-20); Calcium 8.5 mg/dl (8.5-10.1); Creatinine Clr Calc Pharmacy 13.7 ml/min; Est GFR (African American) 23.2; Potassium 4.5 mmol/L (3.5-5.1)
--- NOTE | 2020-03-17 11:42 | Pharmacy Report ---
Pharmacy Abx Dose Short Note - Date of Service March 17, 2020 - Assessment & Plan Assessment 89 year old F receiving Vancomycin and Aztreonam for treatment of pneumonia * Day #2 of antimicrobial therapy * Patient is afebrile, slight increase in WBCs to 12.6K, significant increase in SCr 1.65 --> 2.13 * Vancomycin dose was hung prior to random level being drawn this morning. * Urine Cx growing E.coli Plan Vancomycin * Patient received 500 mg of IV Vancomycin this AM. Original plan was to give patient a much smaller dose (~ 9 mg/kg) at a more frequent interval (Q24H) to get her therapeutic. Without having a random level to assess and with worsened renal function. Will hold any further vancomycin doses and order a random level with AM labs tomorrow morning. This will help to assess the need for re- dosing. Pharmacy will continue to follow and will adjust dose/frequency as necessary. Thank you.
[2020-03-17] MEDS: SODIUM CHLOR 0.45% + 20MEQ KCL 20 MEQ/1,000 ML BAG IV SCH (13:16)
--- NOTE | 2020-03-17 18:46 | Hospitalist Progress Note ---
Date of Service March 17, 2020 Assessment & Plan (1) Acute respiratory failure with hypoxia: initially somewhat difficult to discern etiology, but overall appears much improved from when she came in ---most likely is MRSA pneumonia given that she was on levaquin at SNF and not improving - came here because she was worse - and now showing good improvement on vanco and cefepime (alternate dx would be quinolone resistant gram negative pneumonia or aspiration but MRSA would be more likely -- MRSA more likely than gm neg due to probabilities, aspiration less likely given that she was on levaquin which would cover for such) ---Sars-CoV-2 swab fortunately negative (initial concern on if this was decompensated CHF but after review and cautious fluid trial - appears much more c/w being sick from pneumonia and dry) (2) Healthcare associated bacterial pneumonia: See above, improving (3) Sepsis: Borderline blood pressure in the emergency department. delicate fluid balance - she is dry, but seems to have fairly brittle HFpEF by track record. BP acceptable - continue gentle fluids and follow. should pressure drop would give small (250-500) boluses of isotonic fluid and reassess; should her breathing worsen or O2 requirement increase, would stop fluids and reassess (4) Diastolic CHF: has LVH and valvular disease- see above -after careful review and cautio us trial of fluids - despite mixed picture clinically she does not appear to have pulmonary edema/acute CHF - rather has brittle chronic HFpEF -- fluids as above, low threshold to hold when needed (5) Hypernatremia: likely relates to volume depletion - slowly correcting w fluids as above (6) CKD (chronic kidney disease), stage III: EMERY seems to relate to low volume status (see above) - cautious/gentle/slow fluids (creatinine worsened to day but with [id number] in remainder of clinical picture, will hold off on bolusing right now - as it may "fix" her creatinine faster but worsen her overall status if CHF is precipitated) - continue gentle fluids, follow closely (7) AMS (altered mental status): Secondary to sepsis and bacterial pneumonia with hypoxia - and also likely hospital environment. despite long conversation w dtr was unable to truly glean baseline mentation from her - although she did note a long and steep decline over last 9 months. PCP did note her frailty has gotten severe (8) Parkinson disease: after review not on any meds listed (9) Peripheral arterial disease: home meds (10) Hypothyroidism: home meds (11) A-fib: rate controlled anticoagulated (12) HTN (hypertension): hold home meds while pressure so low (13) Elevated troponin: probably mild demand ischemia from pneumonia/physiologic stress - fortunately mild (14) DVT (deep venous thrombosis): eliquis (15) Dysphagia: see above under pneumonia, unlikely but possible that this is an aspiration pneumonia; regardless, when discussing plan for speech eval and treat dtr asked "what's the point?" then going on to note that pt has had aspiration issues for quite a while - after further detailed discussion, it was clear that other diet modifications/etc have been tried but pt would not eat - after discussions, we arrived at the conclusion of current diet (puree, thin liquids) aspiration precautions as best as possible, but no further intervention at this time (16) Chronic osteomyelitis: local wound care (17) Discharge planning issues: PT/OT eval and treat, anticipate return to [facility] when more stable Admission and Anticipated Discharge Date Admission Date: March 15, 2020 Subjective still no meaningful HPI or ROS. nursing notes that she's been about the same as before. noted concern on aspiration risk. breathing has been doing well lung exam not worsening and oxygen requirement less called dtr Rebecca, ~25min phone call updating on mom's condition. rebecca vented quite a bit about the general state of SNF care and thin staffing, etc. as best i could i offered empathy and support. also tried my best to answer her many and varied questions to the best of my ability. Review of Systems Review of Systems: Unobtainable due to cognitive status Physical Exam Physical Exam: gen laying in bed makes eye contract and tries to talk some nonsensically but at least mostly with a conversational [id number] charla, nad. heent nc at mmm lungs diminished bibasilar surprisingly clear to my exam no r/r/w moderate effort at best no accessory muscles good effort. is on room air. cardio distant but reg. abd soft nd nt. ext no cyanosis. R toes with chronic deep wounds. diffuse chronic appearing edema. no focal neuro deficits appreciated - obviously full exam quite difficult. Results & Data Results & Data ([facility]) Vital Signs (Past 12 Hours) Vital Signs Temp Pulse Resp BP Pulse Ox 03/17/20 16:01 97.5 F L 66 23 88/55 L 94 03/17/20 11:52 97.3 F L 64 19 90/62 L 93 03/17/20 07:15 97.7 F 69 22 94/57 L 92 PG Care Time/CCT Total # of Minutes Spent Total Time Spent with Patient: Total time spent is greater than 50% in coordination of care (as documented) at patient's floor/unit and/or counseling patient: Coding Level of Care Code 92841 Subseq Hosp Care Lvl 3 Diagnoses Acute respiratory failure with hypoxia J96.01 Healthcare associated bacterial pneumonia J15.9 Sepsis A41.9 Sepsis acute organ dysfunction status: unspecified Sepsis type: sepsis due to unspecified organism Diastolic CHF I50.30 Hypernatremia E87.0 CKD (chronic kidney disease), stage III N18.3 AMS (altered mental status) R41.82 Altered mental status type: unspecified Parkinson disease G20 Peripheral arterial disease I73.9 Hypothyroidism E03.9 Hypothyroidism type: unspecified A-fib I48.11 Atrial fibrillation type: longstanding persistent HTN (hypertension) I10 Elevated troponin R79.89 DVT (deep venous thrombosis) I82.409 Dysphagia R13.10 Chronic osteomyelitis M86.60 Discharge planning issues Z02.9 (1) Sepsis Sepsis acute organ dysfunction status: unspecified Sepsis type: sepsis due to unspecified organism Qualified Code(s): A41.9 - Sepsis, unspecified organism (2) AMS (altered mental status) Altered mental status type: unspecified Qualified Code(s): R41.82 - Altered mental status, unspecified (3) Hypothyroidism Hypothyroidism type: unspecified Qualified Code(s): E03.9 - Hypothyroidism, unspecified (4) A-fib Atrial fibrillation type: longstanding persistent Qualified Code(s): I48.11 - Longstanding persistent atrial fibrillation
[2020-03-17] MEDS: MELATONIN 3 MG TAB PO SCH (20:59)
[2020-03-17] MEDS ORDERED: ACETAMINOPHEN 500 MG TAB PO PRN (22:02)
[2020-03-18] MEDS: SODIUM CHLOR 0.45% + 20MEQ KCL 20 MEQ/1,000 ML BAG IV SCH ×2 (04:56→18:03)
[2020-03-18] MEDS: AZTREONAM 1,000 MG in DEXTROSE 5% 100 ML IV SCH (04:57)
[2020-03-18] MEDS: LEVOTHYROXINE SODIUM 200 MCG TABLET PO SCH (05:35)
[2020-03-18 06:49] LABS: Basophils # (auto) 0.01 K/uL (0-0.2); Basophils % (auto) 0.1 %; Hematocrit (blood only) 38.2 % (37-47); Hemoglobin 11.9 g/dL (12.0-16.0); Immature Granulocytes # (auto) 0.14 K/uL (0.00-0.02); Lymphocytes # (auto) 0.71 K/uL (1.2-3.4); Lymphocytes % (auto) 5.1 %; Mean Corpuscular Hemoglobin 28.6 pg (25-34); Mean Corpuscular Hgb Conc 31.2 g/dL (32-36); Mean Corpuscular Volume 91.8 fL (80-100); Mean Platelet Volume 10.8 fL (7.4-10.4); Monocytes % (auto) 5.1 %; Neutrophils # (auto) 12.24 K/uL (1.4-6.5); Neutrophils % (auto) 88.7 %; Nucleated RBC # (auto) 0.08 K/uL (0-0); Nucleated RBC % (auto) 0.6 %; Platelet Count 192 K/uL (130-400); RDW Standard Deviation 65.6 fL (36.4-46.3); Red Blood Count 4.16 M/uL (4.2-5.4)
[2020-03-18 07:18] LABS: Anisocytosis Present; Echinocytes 1+
[2020-03-18] MEDS: APIXABAN 2.5 MG TAB PO SCH ×2 (07:39→19:51)
[2020-03-18] MEDS: CLOPIDOGREL BISULFATE 75 MG TAB PO SCH (07:40)
[2020-03-18] MEDS ORDERED: VANCOMYCIN HCL 500 MG in 0.9 % SODIUM CHLORIDE 100 ML IV ONE (08:30)
--- NOTE | 2020-03-18 08:40 | Hospitalist Progress Note ---
Date of Service March 18, 2020 Assessment & Plan (1) Acute respiratory failure with hypoxia: initially somewhat difficult to discern etiology, but overall appears part of a septic initial picture likely from either skin with regard to her wounds for ESBL UTI present on admission ---Sars-CoV-2 swab fortunately negative (initial concern on if this was decompensated CHF but after review and cautious fluid trial - appears much more c/w being sick from infectious disease etiology (2) Sepsis: Borderline blood pressure i remains the patient is a history of diastolic heart failure likely is intravascularly dry but has third spacing of her body fluids and some positional edema due to a semi-Fowlers chronic position (3) Diastolic CHF: has LVH and valvular disease- see above -after careful review and cautio us trial of fluids - despite mixed picture clinically she does not appear to have pulmonary edema/acute CHF - rather has brittle chronic HFpEF --we will cautiously watch urine output and volume status clinically (4) Hypernatremia: likely relates to volume depletion - slowly correcting w fluids (5) CKD (chronic kidney disease), stage III: EMERY seems to relate to low volume status (see above) - (6) AMS (altered mental status): Secondary to sepsis and metabolic encephalopathy with hypoxia - and also likely hospital environment. After conversations with the family they seem resistant to believe that their 89-year-old mother is chronic conditions is likely may not be remediable they will however visit the patient as I do feel she is morbidly ill to make a better determination of our eventual plan of care (7) Parkinson disease: after review not on any meds listed (8) Peripheral arterial disease: Patient has evidence of cyanotic and possibly partially necrotic toes and changes of peripheral arterial disease chronically in her lower extremities (9) Hypothyroidism: home meds (10) A-fib: rate controlled anticoagulated (11) HTN (hypertension): hold home meds while pressure so low (12) Elevated troponin: probably mild demand ischemia from pneumonia/physiologic stress - fortunately mild (13) DVT (deep venous thrombosis): eliquis (14) Dysphagia: Patient is a high risk for aspiration, as documented when Dr. Kulkarni was discussing plan for speech eval and treat dtr asked "what's the point?" then going on to note that pt has had aspiration issues for quite a while - after further detailed discussion, it was clear that other diet modifications/etc have been tried but pt would not eat - after discussions, we arrived at the conclusion of current diet (puree, thin liquids) aspiration precautions as best as possible, but no further intervention at this time (15) Chronic osteomyelitis: local wound care (16) Discharge planning issues: PT/OT eval and treat, anticipate return to [facility] when more stable Admission and Anticipated Discharge Date Admission Date: that he remarks that heMay 2019 Subjective Patient was moaning she did not like to be moved to her examined she is multiple issues that are concerning including an ESBL UTI, cyanotic blackened toes on her foot with chronic venous stasis changes to lower extremity which could be a portal of entry for infection and persistent hypo-thermia and hypotension I did speak with daughter and updated her on 03/18/2020 Review of Systems Review of Systems: Review of systems cannot be obtained due to cognitive status Physical Exam Physical Exam: The patient appeared chronically ill and debilitated Vital signs as documented. Noted hypothermia and hypotension Head exam is unremarkable. No scleral icterus Neck is with JVD, thyromegaly, or carotid bruits. Lungs are decreased at the bases with rhonchi Cardiac exam, Rhythm is regular.. Systolic ejection murmurs heard Abdominal exam reveals normal bowel sounds, soft non tender, no masses Extremities are changes chronic venous stasis cyanotic toes on her foot with brisk capillary refill markedly tender possibly consistent with ischemia because gross pulses are not palpated Neurologic exam is arouses to voice, resists exam Skin is with chronic changes and concern for possible portal of entry for c ellulitis Results & Data Results & Data ([facility]) Vital Signs (Past 12 Hours) Vital Signs Temp Pulse Pulse Resp BP Pulse Ox 03/18/20 07:54 85/62 L 03/18/20 07:41 95 F L 74 18 72/51 L 95 03/18/20 06:30 94.5 F L 68 14 91/55 L 94 03/18/20 06:03 94.6 F L 03/18/20 05:30 96.4 F L 03/18/20 05:21 96.4 F L 03/18/20 04:10 95.0 F L 70 16 94/55 L 94 03/17/20 22:27 96.8 F L 71 20 84/56 L 94 PG Care Time/CCT Total # of Minutes Spent Total Time Spent with Patient: Total time spent is greater than 50% in coordination of care (as documented) at patient's floor/unit and/or counseling patient: Coding Level of Care Code 67032 Subseq Hosp Care Lvl 3 Diagnoses Acute respiratory failure with hypoxia J96.01 Sepsis A41.9 Sepsis acute organ dysfunction status: unspecified Sepsis type: sepsis due to unspecified organism Diastolic CHF I50.30 Hypernatremia E87.0 CKD (chronic kidney disease), stage III N18.3 AMS (altered mental status) R41.82 Altered mental status type: unspecified Parkinson disease G20 Peripheral arterial disease I73.9 Hypothyroidism E03.9 Hypothyroidism type: unspecified A-fib I48.11 Atrial fibrillation type: longstanding persistent HTN (hypertension) I10 Elevated troponin R79.89 DVT (deep venous thrombosis) I82.409 Dysphagia R13.10 Chronic osteomyelitis M86.60 Discharge planning issues Z02.9 (1) A-fib Atrial fibrillation type: longstanding persistent Qualified Code(s): I48.11 - Longstanding persistent atrial fibrillation (2) Hypothyroidism Hypothyroidism type: unspecified Qualified Code(s): E03.9 - Hypothyroidism, unspecified (3) Sepsis Sepsis acute organ dysfunction status: unspecified Sepsis type: sepsis due to unspecified organism Qualified Code(s): A41.9 - Sepsis, unspecified organism (4) AMS (altered mental status) Altered mental status type: unspecified Qualified Code(s): R41.82 - Altered mental status, unspecified
[2020-03-18] MEDS: ERTAPENEM SODIUM 500 MG in SODIUM CHLORIDE 0.9% 50 ML IV SCH (11:00)
[2020-03-18] MEDS: MELATONIN 3 MG TAB PO SCH (19:50)
[2020-03-19] MEDS: LEVOTHYROXINE SODIUM 200 MCG TABLET PO SCH (05:47)
[2020-03-19 07:19] LABS: BUN Creatinine Ratio 26.8 (10-20); Calcium 7.7 mg/dl (8.5-10.1); Creatinine Clr Calc Pharmacy 11.2 ml/min; Est GFR (African American) 17.4; Potassium 5.4 mmol/L (3.5-5.1)
[2020-03-19] MEDS: LACTATED RINGER'S 1,000 ML IV SCH ×2 (07:42→22:22)
[2020-03-19] MEDS: CLOPIDOGREL BISULFATE 75 MG TAB PO SCH (08:25)
[2020-03-19] MEDS: APIXABAN 2.5 MG TAB PO SCH ×2 (08:25→20:49)
[2020-03-19] MEDS: ERTAPENEM SODIUM 500 MG in SODIUM CHLORIDE 0.9% 50 ML IV SCH (10:55)
--- NOTE | 2020-03-19 11:54 | Pharmacy Report ---
Pharmacy Abx Dose Short Note - Date of Service March 19, 2020 - Assessment & Plan Assessment 89 year old F receiving vancomycin for treatment of pulm/ssti?. Ertapenem for ESBL UTI. Serum creatinine continues to increase. Day # 5 of antimicrobial therapy. Plan Vancomycin * Random level of 18.1 mcg/mL is therapeutic * Redose with 500 mg IV today @ 1500 (~36 hours after last dose) * Goal trough level : 15 to 20 mcg/mL * Trough or random level ordered for: pending continuation, clinical status/renal function tomorrow Pharmacy will continue to follow and will adjust dose/frequency as necessary. Thank you.
[2020-03-19] MEDS ORDERED: VANCOMYCIN HCL 500 MG in SODIUM CHLORIDE 0.9% 250 ML IV SCH (15:00)
--- NOTE | 2020-03-19 17:54 | Hospitalist Progress Note ---
Date of Service March 19, 2020 Assessment & Plan (1) Acute respiratory failure with hypoxia: Initially patient was septic likely from skin with regard to her wounds and cyanotic toes and additionally with concern for ESBL UTI present on admission ---Sars-CoV-2 swab negative (initial concern on if this was decompensated CHF but after review her issues are with peripheral third spacing of fluid due to poor nutrition and shortness of breath is likely from her sepsis) (2) Sepsis: Etiologies include skin and urine being treated with antibiotics blood pressures remain low (3) Diastolic CHF: chronic HFpEF --blood pressures have remained low and renal function worsens we will give another trial of IV fluid overnight 03/19 to 03/20 (4) Hypernatremia: likely relates to volume depletion -remains elevated will attempt to use normal saline at this time not expecting her sodium to improve (5) CKD (chronic kidney disease), stage III: EMERY seems to relate to intravascular volume depletion this is in addition to chronic kidney disease stage III (6) AMS (altered mental status): Secondary to sepsis and metabolic encephalopathy with hypoxia - After conversations with the family, 03/18/20, they seem resistant to believe that their 89-year-old mother is chronic conditions is likely may not be remediable they will however visit the patient as I do feel she is mortaly ill to make a better determination of our eventual plan of care (7) Parkinson disease: after review not on any meds listed (8) Peripheral arterial disease: Patient has evidence of cyanotic and possibly partially necrotic toes and changes of peripheral arterial disease chronically in her lower extremities (9) Hypothyroidism: home meds (10) A-fib: Remains rate controlled Remains anticoagulated (11) HTN (hypertension): hold home meds while pressure so low (12) Elevated troponin: probably mild demand ischemia from pneumonia/physiologic stress - fortunately mild (13) DVT (deep venous thrombosis): eliquis (14) Dysphagia: Patient is a high risk for aspiration, as documented when Dr. Kulkarni was discussing plan for speech eval and treat dtr asked "what's the point?" then going on to note that pt has had aspiration issues for quite a while - after further detailed discussion, it was clear that other diet modifications/etc have been tried but pt would not eat - after discussions, we arrived at the conclusion of current diet (puree, thin liquids) aspiration precautions as best as possible, but no further intervention at this time Patient is only able to take a few small bites of food on 03/19/2020 certainly not enough to sustain her hydration or nutrition (15) Chronic osteomyelitis: local wound care (16) Discharge planning issues: PT/OT eval and treat, anticipate return to [facility] when more stable may need palliative care consultation eventually Admission and Anticipated Discharge Date Admission Date: March 15, 2020 Subjective Patient remains minimally responsive she is uncomfortable to movement she continues to have limited p.o. intake she is third spacing fluid and she has some necrotic toes on her right foot. She has chronic venous stasis changes to her lower extremities and reportedly is also third spacing to her perineal area and vaginal area according to nursing staff Review of Systems Review of Systems: Unobtainable due to cognitive status Physical Exam Physical Exam: The patient appeared in poor condition, debilitated and in moderate distress Vital signs as documented. Remains with hypotension and poor urine output Head exam is normocephalic atraumatic Neck is with JVD, trachea is midline Lungs are diminished at the bases poor effort Cardiac exam, Rhythm is regular.. Systolic ejection murmur is heard Abdominal exam reveals normal bowel sounds, soft non tender, no masses Extremities chronic venous stasis changes to lower extremities with cyanotic toes to her right foot Neurologic exam is arousable to touch and pain Skin is with chronic changes to her lower extremities Results & Data Results & [facility] ([facility]) Vital Signs (Past 12 Hours) Vital Signs Temp Pulse Pulse Resp BP Pulse Ox 03/19/20 15:57 71 18 73/46 L 90 03/19/20 14:50 64 03/19/20 11:01 97.7 F 66 16 86/53 L 99 03/19/20 08:00 69 03/19/20 07:53 75/60 L 03/19/20 07:15 97.7 F 71 20 97 PG Care Time/CCT Total # of Minutes Spent Total Time Spent with Patient: Total time spent is greater than 50% in coordination of care (as documented) at patient's floor/unit and/or counseling patient: Coding Level of Care Code 24221 Subseq Hosp Care Lvl 3 Diagnoses Acute respiratory failure with hypoxia J96.01 Sepsis A41.9 Sepsis acute organ dysfunction status: unspecified Sepsis type: sepsis due to unspecified organism Diastolic CHF I50.30 Hypernatremia E87.0 CKD (chronic kidney disease), stage III N18.3 AMS (altered mental status) R41.82 Altered mental status type: unspecified Parkinson disease G20 Peripheral arterial disease I73.9 Hypothyroidism E03.9 Hypothyroidism type: unspecified A-fib I48.11 Atrial fibrillation type: longstanding persistent HTN (hypertension) I10 Elevated troponin R79.89 DVT (deep venous thrombosis) I82.409 Dysphagia R13.10 Chronic osteomyelitis M86.60 Discharge planning issues Z02.9 (1) Sepsis Sepsis acute organ dysfunction status: unspecified Sepsis type: sepsis due to unspecified organism Qualified Code(s): A41.9 - Sepsis, unspecified organism (2) AMS (altered mental status) Altered mental status type: unspecified Qualified Code(s): R41.82 - Altered mental status, unspecified (3) Hypothyroidism Hypothyroidism type: unspecified Qualified Code(s): E03.9 - Hypothyroidism, unspecified (4) A-fib Atrial fibrillation type: longstanding persistent Qualified Code(s): I48.11 - Longstanding persistent atrial fibrillation
[2020-03-19] MEDS: SODIUM CHLORIDE 0.9% 1000ML 1,000 ML IV SCH (18:44)
[2020-03-19] MEDS: MELATONIN 3 MG TAB PO SCH (20:49)
[2020-03-19] MEDS ORDERED: ACETAMINOPHEN 1,000 MG/100 ML VIAL IV PRN (21:53)
[2020-03-19] MEDS: ALBUMIN 5% 250 ML IV SCH ×2 (23:06→23:36)
[2020-03-20] MEDS: LEVOTHYROXINE SODIUM 200 MCG TABLET PO SCH (05:21)
[2020-03-20 07:40] LABS: BUN Creatinine Ratio 26.5 (10-20); Calcium 8.1 mg/dl (8.5-10.1); Creatinine Clr Calc Pharmacy 11.2 ml/min; Est GFR (Non-African American) 14.7; Potassium 5.2 mmol/L (3.5-5.1)
--- NOTE | 2020-03-20 08:34 | Hospitalist Progress Note ---
Date of Service March 20, 2020 Assessment & Plan (1) Acute respiratory failure with hypoxia: Initially patient was septic likely from skin with regard to her wounds and cyanotic toes and additionally with concern for ESBL UTI present on admission ---Sars-CoV-2 swab negative (initial concern on if this was decompensated CHF but after review her issues are with peripheral third spacing of fluid due to poor nutrition and shortness of breath is likely from her sepsis) Sepsis likely has resolved although patient has persistent hypotension Her respiratory failure has improved however her overall condition is significantly poor with poor p.o. intake interactions skin breakdown and current treatment for E. coli present on admission in her urine (2) Sepsis: Etiologies include skin and urine being treated with antibiotics for both ESBL E. coli UTI and possibility of her gangrenous toes being a portal entry for gram-positive skin infection. Blood pressures remain low given her overall poor nutritional intake I spoke to the family about her likelihood of recovering from this being very poor we are can consider discussing palliative care in the future (3) Diastolic CHF: chronic HFpEF --blood pressures have remained low despite IV fluid administration and renal function has declined with persistent hyperkalemia (4) Hypernatremia: likely relates to volume depletion -remains elevated with hyperchloremia- change fluids to half-normal saline (5) CKD (chronic kidney disease), stage III: EMERY seems to relate to intravascular volume depletion this is in addition to chronic kidney disease stage III (6) AMS (altered mental status): Secondary to sepsis and metabolic encephalopathy with hypoxia - After conversations with the family, 03/18/20, they seem resistant to believe that their 89-year-old mother is chronic conditions is likely may not be remediable they will however visit the patient as I do feel she is mortaly ill to make a better determination of our eventual plan of care for having a palliative care discussion on 03/21/2020 (7) Parkinson disease: after review not on any meds listed (8) Peripheral arterial disease: Patient has evidence of cyanotic and possibly partially necrotic/mummified toes and changes of peripheral arterial disease chronically in her lower extremities (9) Hypothyroidism: home meds (10) A-fib: Remains rate controlled Remains anticoagulated (11) HTN (hypertension): hold home meds while pressure so low (12) Elevated troponin: probably mild demand ischemia from pneumonia/physiologic stress - fortunately mild (13) DVT (deep venous thrombosis): lashell (14) Dysphagia: Patient is a high risk for aspiration, as documented when Dr. Kulkarni was discussing plan for speech eval and treat dtr asked "what's the point?" then going on to note that pt has had aspiration issues for quite a while - after further detailed discussion, it was clear that other diet modifications/etc have been tried but pt would not eat - after discussions, we arrived at the conclusion of current diet (puree, thin liquids) aspiration precautions as best as possible, but no further intervention at this time Patient is only able to take a few small bites of food on 03/19/2020 certainly not enough to sustain her hydration or nutrition (15) Chronic osteomyelitis: local wound care (16) Discharge planning issues: Have a discussion with her family is both in 03/18 & 03/20 including both Kamilah and Chandrika. Chandrika is a nurse. We are going to arrange for family meeting with palliative care in the afternoon of 03/[address] García. Family discloses that she has declined over the last few months and they had not been able to see her due to COVID restrictions subsequently consideration for palliative care will be discussed as the patient has not rebounded from her initial septic illness a few months ago Admission and Anticipated Discharge Date Admission Date: March 15, 2020 Subjective Patient is once again with limited responsiveness. She got really where she is. She is curled up in a ball in a semi-Lauren position. She has pain to examination of her legs and abdomen Review of Systems Review of Systems: Unobtainable due to cognitive status Physical Exam Physical Exam: The patient appeared chronically debilitated and malnourished in mild to moderate distress Vital signs as documented. Head exam is normocephalic atraumatic no scleral icterus Neck is with JVD, thyromegaly, or carotid bruits. Lungs are diminished at the bases with poor effort Cardiac exam, Rhythm is regular.. No murmurs, rubs or gallops. Abdominal exam reveals normal bowel sounds, soft tender to examination Extremities are with changes of chronic venous stasis erythema edema decubitus ulcer on her heel and cyanotic/mummified black toes on her right foot Neurologic exam is alert and oriented, no focal loss of strength or sensation Psychologically is with significant dementia Results & Data Results & Data ([facility]) Vital Signs (Past 12 Hours) Vital Signs Temp Pulse Pulse Resp BP Pulse Ox 03/20/20 07:34 97.5 F L 68 20 93/56 L 93 03/20/20 03:52 96.8 F L 69 16 86/55 L 100 03/19/20 23:04 97.2 F L 76 26 H 96/58 L 94 03/19/20 20:45 96.8 F L PG Care Time/CCT Total # of Minutes Spent Total Time Spent with Patient: Total time spent is greater than 50% in coordination of care (as documented) at patient's floor/unit and/or counseling patient: Coding Level of Care Code 82807 Subseq Hosp Care Lvl 3 Diagnoses Acute respiratory failure with hypoxia J96.01 Sepsis A41.9 Sepsis acute organ dysfunction status: unspecified Sepsis type: sepsis due to unspecified organism Diastolic CHF I50.30 Hypernatremia E87.0 CKD (chronic kidney disease), stage III N18.3 AMS (altered mental status) R41.82 Altered mental status type: unspecified Parkinson disease G20 Peripheral arterial disease I73.9 Hypothyroidism E03.9 Hypothyroidism type: unspecified A-fib I48.11 Atrial fibrillation type: longstanding persistent HTN (hypertension) I10 Elevated troponin R79.89 DVT (deep venous thrombosis) I82.409 Dysphagia R13.10 Chronic osteomyelitis M86.60 Discharge planning issues Z02.9 (1) A-fib Atrial fibrillation type: longstanding persistent Qualified Code(s): I48.11 - Longstanding persistent atrial fibrillation (2) Hypothyroidism Hypothyroidism type: unspecified Qualified Code(s): E03.9 - Hypothyroidism, unspecified (3) Sepsis Sepsis acute organ dysfunction status: unspecified Sepsis type: sepsis due to unspecified organism Qualified Code(s): A41.9 - Sepsis, unspecified organism (4) AMS (altered mental status) Altered mental status type: unspecified Qualified Code(s): R41.82 - Altered mental status, unspecified
[2020-03-20] MEDS: SODIUM CHLORIDE 0.9% 1000ML 1,000 ML IV SCH (08:57)
[2020-03-20] MEDS: SODIUM CHLORIDE 0.45 % 1,000 ML IV SCH ×2 (09:26→20:45)
[2020-03-20] MEDS: ERTAPENEM SODIUM 500 MG in SODIUM CHLORIDE 0.9% 50 ML IV SCH (09:27)
[2020-03-20] MEDS: CLOPIDOGREL BISULFATE 75 MG TAB PO SCH (09:42)
[2020-03-20] MEDS: APIXABAN 2.5 MG TAB PO SCH ×2 (09:42→20:46)
[2020-03-20] MEDS: MELATONIN 3 MG TAB PO SCH (20:46)
[2020-03-21] MEDS: ALBUMIN 25% 50 ML IV SCH ×2 (00:48→01:44)
[2020-03-21 02:33] LABS: BUN Creatinine Ratio 27.3 (10-20); Calcium 7.6 mg/dl (8.5-10.1); Creatinine Clr Calc Pharmacy 11.3 ml/min; Est GFR (African American) 17.3; Est GFR (Non-African American) 14.9; Potassium 4.9 mmol/L (3.5-5.1)
[2020-03-21] MEDS ORDERED: GLUCAGON FOR INJ 1 MG VIAL SQ PRN (02:38)
[2020-03-21] MEDS ORDERED: CARBOHYDRATES FOR HYPOGLYCEMIA PO PRN (02:38)
[2020-03-21] MEDS ORDERED: GLUCOSE 10 TABS/TUBE PO PRN (02:38)
[2020-03-21] MEDS ORDERED: DEXTROSE 50% 50 ML SYRINGE IV PRN (02:38)
[2020-03-21] MEDS ORDERED: GLUCOSE 40% GEL 15 GM TUBE PO PRN (02:38)
[2020-03-21] MEDS ORDERED: VANCOMYCIN HCL 500 MG in SODIUM CHLORIDE 0.9% 250 ML IV ONE (04:00)
[2020-03-21] MEDS: D5W AND NSS 1,000 ML IV SCH ×2 (05:26→18:58)
[2020-03-21] MEDS: LEVOTHYROXINE SODIUM 200 MCG TABLET PO SCH (05:29)
--- NOTE | 2020-03-21 07:43 | Pharmacy Report ---
Pharmacy Abx Dose Short Note - Date of Service March 21, 2020 - Assessment & Plan Assessment 89 year old F ordered vancomycin and ertapenem for gangrenous toes and ESBL E.coli UTI * Day #4 of ertapenem and day #6 of vancomycin * BC x 2 with no growth * Recent R foot culture from 02/05/20 grew MRSA (resistant to Bactrim) Plan Vancomycin * Trough level of 18.9 mcg/mL is therapeutic * Start scheduled dose of 500 mg IV every 36 hours * Goal trough level: ~15 mcg/mL * No further levels have been ordered as vancomycin order will discontinue 03/22 @6853 (notified provider) Pharmacy will continue to follow and will adjust dose/frequency as necessary. Thank you.
[2020-03-21] MEDS: CLOPIDOGREL BISULFATE 75 MG TAB PO SCH (08:13)
[2020-03-21] MEDS: APIXABAN 2.5 MG TAB PO SCH ×2 (08:13→20:17)
[2020-03-21] MEDS: ERTAPENEM SODIUM 500 MG in SODIUM CHLORIDE 0.9% 50 ML IV SCH (10:22)
--- NOTE | 2020-03-21 14:01 | Palliative Care Consultation ---
Date of Consultation March 21, 2020 Assessment & Plan (1) Goals of care, counseling/discussion: -89 year old female patient with PMH Parkinson's disease, healthcare associated pneumonia, osteomyelitis, pleural effusion, PAD, central sleep apnea, urinary tract infection, metabolic encephalopathy, sick sinus syndrome, atrial fibrillation, hypertension, hypothyroidism, hyperlipidemia, chronic kidney disease stage III, DVT and osteomyelitis of right foot, presented to the hospital several days ago from [facility] with c/o lethargy. Patient was apparently being treated at the intermediate for pneumonia with Levaquin. CXR showed moderate pulmonary edema and BL opacities that could represent pneumonia. Patient was given abx, but unable to have IVF due to pulmonary edema. Patient was placed on high-flow oxygen due to hypoxia. Family expressed their wishes to not pursue aggressive measures, including intubation and CPR, but were okay with continuing current treatment. Patient also noted to have beginning of necrosis to her toe, again family was leaning towards not pursuing aggressive treatment or surgery for this. Creatinine elevated on admission at 1.76, has worsened to 2.75, now today 2.72 (was 1.13 to 1.25 in December). Patient's respiratory status did improve, she is now on room air. However, she is found to have ESBL UTI and would need prolonged abx if family wishes to continue treating. Patient has lived in [facility] for 3.5 years, seems to have a poor baseline func tional status. Patient unfortunately has remained fairly lethargic during this admission. She has woken enough to eat a few bites/sips only a couple times and she has known aspiration risk. Given patient's multiple comorbidities and acute illnesses, necrotic toes requiring surgical amputation but poor surgical candidate, as well as poor functional status to begin with, palliative care is consulted to discuss goals of care with family. -I spoke briefly with patient's daughter, Kamilah, this morning. She has several other sisters. Sunshine will be at bedside for family meeting, other sisters will be on phone. -Palliative MD saw patient and had family meeting this afternoon. -After family meeting, decision made to move towards hospice at SNF. Palliative MD made case packer aware. -We will continue to follow as needed. (2) AMS (altered mental status): Altered mental status type: unspecified Qualified Code(s): R41.82 - Altered mental status, unspecified (3) Dysphagia: (4) Osteomyelitis: Laterality: right Osteomyelitis location: foot Osteomyelitis type: unspecified type Qualified Code(s): M86.9 - Osteomyelitis, unspecified Supervising Physician Co-Signing Physician Notes Chart reviewed, patient seen and examined. Collaborated with LISA Alvarado as well as attending physician Dr. Cruz Had a family meeting at bedside with patient's daughter Sunshine present, her daughter Chandrika participated in the conversation by phone. Patient admitted with altered mental status and lethargy, patient did have a slight rally, however over the past 48 hours patient has been minimally expansive with minimal p.o. intake. Patient continues on IV antibiotics for E. coli ESBL. 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 Discussed with family at bedside patient's current status as well as goals of care. Patient's daughter Sunshine, reports patient has been recognizing family less often, having increased confusion. After long discussion regarding patient's multiple medical problems family is amenable to pursuing return to [facility] under hospice care. Case management notified. Daughters to speak with other family members for final decision. PE: Patient minimally responsive throughout visit, appears comfortable, no acute distress HEENT: Mild [place], did not open eyes during visit Respirations: Unlabored CV: Regular rate Abdomen: Soft, nontender Extremities: Dry gangrene several toes of the right-nontender Neuro: Minimally responsive Agree with above note, assessment and plan as per LISA Alvarado. Will continue to follow and assist family with medical decision making. History of Present Illness Attending Physician: Gerard Cruz MD History of Present Illness This 89 year old female patient with PMH Parkinson's disease, healthcare associated pneumonia, osteomyelitis, pleural effusion, PAD, central sleep apnea, urinary tract infection, metabolic encephalopathy, sick sinus syndrome, atrial fibrillation, hypertension, hypothyroidism, hyperlipidemia, chronic kidney disease stage III, DVT and osteomyelitis of right foot, presented to the hospital several days ago from [facility] with c/o lethargy. Patient was apparently being treated at the intermediate for pneumonia with Levaquin. CXR showed moderate pulmonary edema and BL opacities that could represent pneumonia. Patient was given abx, but unable to have IVF due to pulmonary edema. Patient was placed on high-flow oxygen due to hypoxia. Family expressed their wishes to not pursue aggressive measures, including intubation and CPR, but were okay with continuing current treatment. Patient also noted to have beginning of necrosis to her toe, again family was leaning towards not pursuing aggressive treatment or surgery for this. Creatinine elevated on admission at 1.76, has worsened to 2.75, now today 2.72 (was 1.13 to 1.25 in December). Patient's respiratory status did improve, she is now on room air. However, she is found to have ESBL UTI and would need prolonged abx if family wishes to continue treating. Patient has lived in [facility] for 3.5 years, seems to have a poor baseline functional status. Patient unfortunately has remained fairly lethargic during this admission. She has woken enough to eat a few bites/sips only a couple times and she has known aspiration risk. Given patient's multiple comorbidities and acute illnesses, necrotic toes requiring surgical amputation but poor surgical candidate, as well as poor functional status to begin with, palliative care is consulted to discuss goals of care with family. Thank you kindly for this consult. Palliative care team will follow as needed. Allergies Allergy/AdvReac Type Severity Reaction Status Date / Time amoxicillin Allergy Mild Rash Verified 03/15/20 23:18 Home Medications Home Medications Medication Instructions Recorded Confirmed Type acetaminophen 325 mg capsule 650 mg PO Q6H PRN cap MDD 3 GMS 07/11/18 03/15/20 History APAP/24 HOURS clopidogrel 75 mg tablet 75 mg PO QAM tab 07/11/18 03/15/20 History ferrous sulfate 325 mg (65 mg 325 mg PO BID tab 07/11/18 03/15/20 History iron) tablet loratadine 10 mg tablet 10 mg PO QAM 07/11/18 03/15/20 History Eliquis 2.5 mg PO BID 06/21/19 03/15/20 History ascorbic acid (vitamin C) [Vitamin 250 mg PO BID 06/21/19 03/15/20 History C] cholecalciferol (vitamin D3) 1,000 unit PO QAM 06/21/19 03/15/20 History [Vitamin D3] magnesium hydroxide [Milk of 30 ml PO DIRECTED PRN 06/21/19 03/15/20 History Magnesia] sodium chloride [Saline Nasal] 2 spray INTRANASAL Q24H PRN 06/21/19 03/15/20 History atenolol 50 mg PO BID #60 tab 06/26/19 03/15/20 Rx docusate sodium 100 mg PO BID #60 cap 11/10/19 03/15/20 Rx atorvastatin 40 mg PO QPM 11/27/19 03/15/20 History cyclosporine 1 drp OPB BID 11/27/19 03/15/20 History famotidine 20 mg PO BID 11/27/19 03/15/20 History potassium chloride 20 meq PO QAM 11/27/19 03/15/20 History Fleet Enema 118 ml NV DIRECTED PRN 12/21/19 03/15/20 History Lactobacillus acidoph-L.bulgar 4 tab PO QID 12/21/19 03/15/20 History [Floranex] Therems-M 1 tab PO QAM 12/21/19 03/15/20 History bisacodyl [Dulcolax (bisacodyl)] 10 mg NV DIRECTED PRN 12/21/19 03/15/20 History levofloxacin 750 mg PO Q2D 12/21/19 03/15/20 History omega [id number]-[id number]-fish oil [Fish Oil] 1 cap PO QAM 12/21/19 03/15/20 History oxycodone 5 mg PO BID 12/21/19 03/15/20 History tramadol 50 mg PO Q6H PRN 12/21/19 03/15/20 History doxycycline hyclate 100 mg PO BID 03/15/20 03/15/20 History furosemide 20 mg PO DAILY 03/15/20 03/15/20 History guaifenesin [Mucinex] 600 mg PO Q12H 03/15/20 03/15/20 History levothyroxine 200 mcg PO DAILY 03/15/20 03/15/20 History melatonin 3 mg PO HS 03/15/20 03/15/20 History oxycodone 10 mg PO HS 03/15/20 03/15/20 History Patient History Medical History A-fib Born in [facility] (Chronic) Chronic kidney disease (Chronic) Chronic osteomyelitis (Chronic) Cellulitis. Second toe looking possible early stages of ischemic necrosis. Wounds on toes 1-4. xray unchanged. continue IV antibiotics. discussed with daughter on phone. Only way to effectively treat big toe osteo is with amputation. lesser to wounds likely impacted by vascular disease. consider transmet or BKA as she is nonambulatory. Daughter to discuss with siblings but does not appear to be in favor of surgery at this time. Big toe osteo and wounds of lesser toes could contribute to recurrent cellulitis. PSS DVT (deep venous thrombosis) (Chronic) Dyslipidemia (Chronic) E. coli septicemia (Resolved) Encounter for colonoscopy due to history of adenomatous colonic polyps (Chronic) Exploratory laparotomy scar (Chronic) Gram-negative bacteremia (Resolved) HTN (hypertension) (Chronic) Hypothyroid (Chronic) Metabolic encephalopathy Osteoporosis (Chronic) Pacemaker Parkinson disease (Chronic) Peripheral arterial disease (Chronic) Sepsis (Resolved) Sick sinus syndrome TIA (transient ischemic attack) (Chronic) UTI (urinary tract infection) (Acute) Surgical History History of tonsillectomy and adenoidectomy (Chronic) Hx of cardiac pacemaker Family History Other Family history non-contributory Social History Preferred Language: Albanian Communication Ability: Impaired Crane Ladle Person Required: No Beliefs That Will Affect Care: None marital status: / Current Living Situation: Snf [facility]uation Comment[facility] Other Information That Helps Us Care for You: No Feels Safe at Home: Yes Safety Concerns: Feels Safe At This Time Smoking Status: Never smoker Second Hand Exposure: No ; Hx Alcohol Use: No Hx Substance Use: No Results & Data Vital Signs (Past 12 Hours) Vital Signs Temp Pulse Pulse Resp BP Pulse Ox 03/21/20 11:12 79/45 L 03/21/20 07:00 35.7 C L 68 20 76/50 L 97 03/21/20 06:10 68 77/47 L 97 03/21/20 03:21 35.8 C L 68 17 94/56 L 95 PG Care Time/CCT Prolonged Care Time Prolonged Care Time: Yes Total Prolonged Care Time: 35 Coding Level of Care Code 71515 Inpt Consult Level 3 Diagnoses Goals of care, counseling/discussion Z71.89 AMS (altered mental status) R41.82 Altered mental status type: unspecified Dysphagia R13.10 Osteomyelitis M86.9 Laterality: right Osteomyelitis location: foot Osteomyelitis type: unspecified type Additional Codes Prolonged Care Time - Prolonged Care Time: Yes ([id number]) Time Spent (min) 105 Time Spent Midlevel A total of 60 minutes spent by this TOP PRECIPITATOR OPERATOR in reviewing chart, speaking with patient's daughter, as well as attending and palliative physicians regarding patient condition and goals of care. Attending Total time spent 45 minutes in addition to this 60 minutes spent by LISA Alvarado for total of 105 minutes with greater than 50% of the time spent at bedside, addressing goals of care with family. Critical Care Time Prolonged Care Time Prolonged Care Time: Yes Total Prolonged Care Time: 35 105
--- NOTE | 2020-03-21 17:28 | Hospitalist Progress Note ---
Date of Service March 21, 2020 Assessment & Plan (1) Acute respiratory failure with hypoxia: Initially patient was septic likely from skin with regard to her wounds and cyanotic toes and additionally with concern for ESBL UTI present on admission ---Sars-CoV-2 swab negative (initial concern on if this was decompensated CHF but after review her issues are with peripheral third spacing of fluid due to poor nutrition and shortness of breath is likely from her sepsis) Sepsis likely has resolved although patient has persistent hypotension Her respiratory failure has improved however her overall condition is significantly poor with poor p.o. intake interactions skin breakdown and current treatment for E. coli present on admission in her urine-> palliative care visit on 03/21/20 will progress to palliative care/hospice at snf (2) Sepsis: Etiologies include skin and urine being treated with antibiotics for both ESBL E. coli UTI and possibility of her gangrenous toes being a portal entry for gram-positive skin infection. Blood pressures remain low given her overall poor nutritional intake I spoke to the family about her likelihood of recovering from this being very poor, family wishes to treat esbl uti and will move to hospice at snf, stopping vancomycin as we are not adressing gangrene at this time and it will only recurr if treated (3) Diastolic CHF: chronic HFpEF --blood pressures have remained low despite IV fluid administration and renal function has declined with persistent hyperkalemia (4) Hypernatremia: likely relates to volume depletion -remains elevated with hyperchloremia, will stop ivf (5) CKD (chronic kidney disease), stage III: EMERY seems to relate to intravascular volume depletion this is in addition to chronic kidney disease stage III (6) AMS (altered mental status): Secondary to sepsis and metabolic encephalopathy with hypoxia - After conversations with the family, 03/18/20, they seem resistant to believe that their 89-year-old mother is chronic conditions is likely may not be remediable they will however visit the patient as I do feel she is mortaly ill to make a better determination of our eventual plan of care palliative care discussion on 03/21/2020 will involve remainder of family and christiano progress to hospice care in near future (7) Parkinson disease: after review not on any meds listed (8) Peripheral arterial disease: Patient has evidence of cyanotic and possibly partially necrotic/mummified toes and changes of peripheral arterial disease chronically in her lower extremities (9) Hypothyroidism: home meds (10) A-fib: Remains rate controlled Remains anticoagulated (11) HTN (hypertension): hold home meds while pressure so low (12) Elevated troponin: probably mild demand ischemia from pneumonia/physiologic stress - fortunately mild (13) DVT (deep venous thrombosis): eliquis (14) Dysphagia: Patient is a high risk for aspiration, as documented when Dr. Kulkarni was discussing plan for speech eval and treat dtr asked "what's the point?" then going on to note that pt has had aspiration issues for quite a while - after further detailed discussion, it was clear that other diet modifications/etc have been tried but pt would not eat - after discussions, we arrived at the conclusion of current diet (puree, thin liquids) aspiration precautions as best as possible, but no further intervention at this time Patient is only able to take a few small bites of food on 03/19/2020 certainly not enough to sustain her hydration or nutrition (15) Chronic osteomyelitis: local wound care (16) Discharge planning issues: Have a discussion with her family is both in 03/18 & 03/20 including both Kamilah and Chandrika. Chandrika is a nurse. Family discloses that she has declined over the last few months and they had not been able to see her due to COVID restrictions, the patient has not rebounded from her initial septic illness a few months ago. family will eventually transition to hospice in the near future Admission and Anticipated Discharge Date Admission Date: March 15, 2020 Subjective pt remains minimally responsive, she does acknowledge voice commands, family did arrive today for palliative car discussion Review of Systems Review of Systems: Unobtainable due to cognitive status Physical Exam Physical Exam: The patient appeared debilitated and chronically ill, minimally responsive Vital signs as documented. Lungs are with poor effort Cardiac exam, Rhythm is regular. Abdominal exam reveals normal bowel sounds, soft Extremities are with gangrenous toes on right foot and heel ulcer both poa Neurologic exam is lethargic and responds to name Skin is with pre existing gangrene and ulceration Psychologically is with significant dementia Results & Data Results & Data ([facility]) Vital Signs (Past 12 Hours) Vital Signs Temp Pulse Resp BP Pulse Ox 03/21/20 16:38 96.1 F L 63 14 99/62 L 93 03/21/20 11:12 79/45 L 03/21/20 07:00 96.3 F L 68 20 76/50 L 97 03/21/20 06:10 68 77/47 L 97 PG Care Time/CCT Total # of Minutes Spent Total Time Spent with Patient: Total time spent is greater than 50% in coordination of care (as documented) at patient's floor/unit and/or counseling patient: Coding Level of Care Code 69235 Subseq Hosp Care Lvl 3 Diagnoses Acute respiratory failure with hypoxia J96.01 Sepsis A41.9 Sepsis acute organ dysfunction status: unspecified Sepsis type: sepsis due to unspecified organism Diastolic CHF I50.30 Hypernatremia E87.0 CKD (chronic kidney disease), stage III N18.3 AMS (altered mental status) R41.82 Altered mental status type: unspecified Parkinson disease G20 Peripheral arterial disease I73.9 Hypothyroidism E03.9 Hypothyroidism type: unspecified A-fib I48.11 Atrial fibrillation type: longstanding persistent HTN (hypertension) I10 Elevated troponin R79.89 DVT (deep venous thrombosis) I82.409 Dysphagia R13.10 Chronic osteomyelitis M86.60 Discharge planning issues Z02.9 (1) Sepsis Sepsis acute organ dysfunction status: unspecified Sepsis type: sepsis due to unspecified organism Qualified Code(s): A41.9 - Sepsis, unspecified organism (2) AMS (altered mental status) Altered mental status type: unspecified Qualified Code(s): R41.82 - Altered mental status, unspecified (3) Hypothyroidism Hypothyroidism type: unspecified Qualified Code(s): E03.9 - Hypothyroidism, unspecified (4) A-fib Atrial fibrillation type: longstanding persistent Qualified Code(s): I48.11 - Longstanding persistent atrial fibrillation
[2020-03-21] MEDS: MELATONIN 3 MG TAB PO SCH (20:17)
[2020-03-22] MEDS: LEVOTHYROXINE SODIUM 200 MCG TABLET PO SCH (06:18)
[2020-03-22 07:28] LABS: BUN Creatinine Ratio 27.6 (10-20); Calcium 7.7 mg/dl (8.5-10.1); Creatinine Clr Calc Pharmacy 11.8 ml/min; Est GFR (Non-African American) 15.5; Potassium 4.4 mmol/L (3.5-5.1)
[2020-03-22] MEDS: D5W AND NSS 1,000 ML IV SCH (08:19)
[2020-03-22] MEDS: APIXABAN 2.5 MG TAB PO SCH (08:20)
[2020-03-22] MEDS: CLOPIDOGREL BISULFATE 75 MG TAB PO SCH (08:22)
[2020-03-22] MEDS: ERTAPENEM SODIUM 500 MG in SODIUM CHLORIDE 0.9% 50 ML IV SCH (11:50)
--- NOTE | 2020-03-22 14:45 | Palliative Care Progress Note ---
Date of Service March 22, 2020 Assessment & Plan (1) Goals of care, counseling/discussion: -Pt is an 89 year old female patient with PMH Parkinson's disease, healthcare associated pneumonia, osteomyelitis, pleural effusion, PAD, central sleep apnea, urinary tract infection, metabolic encephalopathy, sick sinus syndrome, atrial fibrillation, hypertension, hypothyroidism, hyperlipidemia, chronic kidney disease stage III, DVT and osteomyelitis of right foot, presented to the hospital several days ago from [facility] with c/o lethargy. Patient was apparently being treated at the correction for pneumonia with Levaquin. CXR showed moderate pulmonary edema and BL opacities that could r epresent pneumonia. Patient was given abx, but unable to have IVF due to pulmonary edema. Patient was placed on high-flow oxygen due to hypoxia. Family expressed their wishes to not pursue aggressive measures, including intubation and CPR, but were okay with continuing current treatment. Patient also noted to dry gangrene of her right toes, again family was leaning towards not pursuing aggressive treatment or surgery for this. Creatinine elevated on admission at 1.76, has worsened to 2.75, now today 2.72 (was 1.13 to 1.25 in December). Patient's respiratory status did improve, she is now on room air. However, she is found to have ESBL UTI and would need prolonged abx if family wishes to continue treating. Patient has lived in [facility] for 3.5 years, seems to have a poor baseline functional status. Patient unfortunately has remained fairly lethargic during this admission. She has woken enough to eat a few bites/sips only a couple times and she has known aspiration risk. Given patien t's multiple comorbidities and acute illnesses, necrotic toes requiring surgical amputation but poor surgical candidate, as well as poor functional status to begin with, palliative care is consulted to discuss goals of care with family. -Updated patient's daughter, Kamilah, regarding her being a little more alert today. Did discuss with daughter that patient will have ups and downs, plan is still to return to [facility] today with hospice care (2) AMS (altered mental status): (3) Dysphagia: (4) Osteomyelitis: Subjective Patient seen and examined, no acute distress. Patient awake, eyes open, did have some drooling and thick secretions in mouth- removed with mouth swab Patient would nod to an occasional question, nonverbal. Review of Systems Review of Systems: Unobtainable due to cognitive status Physical Exam Physical Exam: PE: Patient more awake, somewhat lethargic HEENT: EOMI, normal hearing, lax facial muscles, positive drooling Respirations: Unlabored, diminished breath sounds at bases CV: Regular rate Abdomen: Soft, nontender Extremities: Positive gangrenous toes on right foot Neuro: More awake than exam yesterday. Results & Data Vital Signs (Past 12 Hours) Vital Signs Temp Pulse Pulse Pulse Resp BP Pulse Ox 03/22/20 13:59 97.2 F L 68 70 62 18 97/71 L 96 03/22/20 07:18 97.2 F L 68 18 97/71 L 96 PG Care Time/CCT Total # of Minutes Spent Total Time Spent with Patient: Total time spent 25 minutes with greater than 50% of the time at bedside assessing patient's current comfort level as well as updating daughter regarding current condition. Coding Level of Care Code 18401 Subseq Hosp Care Lvl 2 Diagnoses Goals of care, counseling/discussion Z71.89 AMS (altered mental status) R41.82 Altered mental status type: unspecified Dysphagia R13.10 Osteomyelitis M86.9 Laterality: right Osteomyelitis location: foot Osteomyelitis type: unspecified type Time Spent (min) 25 (1) AMS (altered mental status) Altered mental status type: unspecified Qualified Code(s): R41.82 - Altered mental status, unspecified (2) Osteomyelitis Laterality: right Osteomyelitis location: foot Osteomyelitis type: unspecified type Qualified Code(s): M86.9 - Osteomyelitis, unspecified
[2020-03-22] MEDS ORDERED: VANCOMYCIN HCL 500 MG in 0.9 % SODIUM CHLORIDE 100 ML IV SCH (16:00)
--- NOTE | 2020-03-22 16:09 | Discharge Summary ---
Date of Service March 22, 2020 Admission HPI Per Admitting Provider The patient is an 89-year-old female resident of [facility] with a past medical history including Parkinson's disease, healthcare associated pneumonia, osteomyelitis, pleural effusion, peripheral arterial disease, central sleep apnea, urinary tract infection, metabolic encephalopathy, sick sinus syndrome, atrial fibrillation, septic shock due to UTI, hypertension, hypothyroidism, hyperlipidemia, chronic kidney disease stage III, DVT and osteomyelitis of right foot. She reportedly was presently being treated for pneumonia with Levaquin. The patient is unable to contribute to her HPI or review of systems due to significantly altered consciousness. 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 Extremities are edematous and both legs no peripheral arterial disease gangrene is present on the right foot Neurologic exam is alert and demented and disoriented Skin is with bruises and ecchymosis are seen throughout with changes of chronic venous stasis to lower extremities She is overall comfortable Discharge Data Allergies Allergy/AdvReac Type Severity Reaction Status Date / Time amoxicillin Allergy Mild Rash Verified 03/15/20 23:18 Consultations 03/15/20 23:11 ED Decision to Admit Stat 03/16/20 02:03 Consult Case Management - Discharge Planning Routine 03/16/20 03:14 Consult Nutrition Routine 03/20/20 17:10 Consult Palliative Care Routine Ordered Studies 03/15/20 22:16 CT head/brain wo con Stat Hospital Course (1) Acute respiratory failure with hypoxia: Initially patient was septic likely from skin with regard to her wounds and cyanotic toes and additionally with concern for ESBL UTI present on admission ---Sars-CoV-2 swab negative (initial concern on if this was decompensated CHF but after review her issues are with peripheral third spacing of fluid due to poor nutrition and shortness of breath is likely from her sepsis) Sepsis likely has resolved although patient has persistent hypotension Her respiratory failure has improved however her overall condition is significantly poor with poor p.o. intake interactions skin breakdown and current treatment for E. coli present on admission in her urine-> palliative care visit on 03/21/20 will progress to palliative care/hospice at [facility] (2) Sepsis: Etiologies include skin and urine being treated with antibiotics for both ESBL E. coli UTI and possibility of her gangrenous toes being a portal entry for gram-positive skin infection. Blood pressures remain low given her overall poor nutritional intake I spoke to the family about her likelihood of recovering from this being very poor, family wished to treat esbl uti and will move to hospice at [facility], stopped vancomycin (3) Diastolic CHF: chronic HFpEF --blood pressures have remained low despite IV fluid administration and renal function has declined with persistent hyperkalemia (4) Hypernatremia: likely relates to volume depletion -remains elevated with hyperchloremia,did stop ivf (5) CKD (chronic kidney disease), stage III: EMERY seems to relate to intravascular volume depletion this is in addition to chronic kidney disease stage III (6) AMS (altered mental status): Secondary to sepsis and metabolic encephalopathy with hypoxia - Plan of care / palliative care discussion on 03/21/2020 including family and reached a decision to move to hospice at [facility] (7) Parkinson disease: after review not on any meds listed (8) Peripheral arterial disease: Patient has evidence of cyanotic and possibly partially necrotic/mummified toes and changes of peripheral arterial disease chronically in her lower extremities (9) Hypothyroidism: home meds (10) A-fib: stopping anticoaguation at [facility] (11) HTN (hypertension): stop meds (12) Elevated troponin: probably mild demand ischemia from pneumonia/physiologic stress - fort unately mild Total Time Total Time Spent Total Time Spent (In Minutes): It required greater than 30 minutes to prepare this patient for discharge Discharge Plan Discharge Items Patient Disposition: Hospice - Medical Facility Reason For Visit: ACUTE RESPIRATORY FAILURE WITH HYPOXIA Discharge Diagnosis: esbl uti gangrene and cellulitis renal failure Activity: Per Instructions section Activity Comment: activity for comfort and pleasure only Non-emergency contact: Specialist Call non-emergency contact if: your pain is not controlled Follow-up/Referrals: Jorge Aggarwal [Primary Care Provider] - Diet: Regular Diet Texture: Mechanical soft (ground) Addtl Attending Provider Instructions: please enroll this pt into hospice as soon as able Pending Studies at Discharge: No Stand-Alone Forms: My [facility] [employer] Skilled Items Patient informed of condition?: Yes DNR: Yes Discharge Level of Care: Other Communicable Disease: No Discharge Prognosis: Deteriorating Lines: None Urinary Catheter: Yes Medications and DC Order Prescriptions: New morphine 20 mg/5 mL (4 mg/mL) solution 20 mg PO Q6H PRN (Reason: pain) Qty: 100 RF: 0 lorazepam [Ativan] 0.5 mg tablet 0.5 mg PO Q6H Qty: 20 RF: 0 Continued cyclosporine 0.05 % Drops 1 drp OPB BID RF: 0 Discontinued acetaminophen 325 mg capsule 650 mg PO Q6H MDD 3 GMS APAP/24 HOURS PRN (Reason: Fever Or Pain) RF: 0 clopidogrel 75 mg tablet 75 mg PO QAM RF: 0 ferrous sulfate 325 mg (65 mg iron) tablet 325 mg PO BID RF: 0 loratadine [Claritin] 10 mg tablet 10 mg PO QAM RF: 0 docusate sodium 100 mg Capsule 100 mg PO BID Qty: 60 RF: 0 atorvastatin 40 mg Tablet 40 mg PO QPM RF: 0 famotidine 20 mg Tablet 20 mg PO BID RF: 0 potassium chloride 20 mEq Tablet Extended Release 20 meq PO QAM RF: 0 doxycycline hyclate 100 mg tablet 100 mg PO BID RF: 0 levothyroxine 200 mcg Tablet 200 mcg PO DAILY RF: 0 furosemide 20 mg Tablet 20 mg PO DAILY RF: 0 melatonin 3 mg Tablet 3 mg PO HS RF: 0 oxycodone 5 mg tablet 10 mg PO HS RF: 0 guaifenesin [Mucinex] 600 mg Tablet Extended Release 12hr 600 mg PO Q12H RF: 0 Eliquis 2.5 mg Tablet 2.5 mg PO BID RF: 0 magnesium hydroxide [Milk of Magnesia] 400 mg/5 mL Suspension 30 ml PO DIRECTED PRN (Reason: Constipation) RF: 0 sodium chloride [Saline Nasal] 0.65 % Aerosol,Lannon 2 spray INTRANASAL Q24H PRN (Reason: Allergic Rhinitis) RF: 0 ascorbic acid (vitamin C) [Vitamin C] 250 mg Tablet 250 mg PO BID RF: 0 cholecalciferol (vitamin D3) [Vitamin D3] 1,000 unit Tablet,Chewable 1,000 unit PO QAM RF: 0 atenolol 50 mg Tablet 50 mg PO BID Qty: 60 RF: 0 bisacodyl [Dulcolax (bisacodyl)] 10 mg Suppository 10 mg VA DIRECTED PRN (Reason: Constipation) RF: 0 Fleet Enema 19-7 gram/118 mL Enema 118 ml VA DIRECTED PRN (Reason: Constipation) RF: 0 oxycodone 5 mg tablet 5 mg PO BID RF: 0 Therems-M 27-0.4 mg Tablet 1 tab PO QAM RF: 0 omega 8-aql-pdh-fish oil [Fish Oil] 1,000 mg (120 mg-180 mg) Capsule 1 cap PO QAM RF: 0 tramadol 50 mg tablet 50 mg PO Q6H PRN (Reason: pain 5-10) RF: 0 levofloxacin 750 mg tablet 750 mg PO Q2D RF: 0 Lactobacillus acidoph-L.bulgar [Floranex] 1 million cell tablet 4 tab PO QID RF: 0 Discharge Orders: Discharge Order (Routine); Ordered 03/22/20 Ordered By: Gerard Cruz Admission Data Admit Date/Time: 03/15/20 23:53 Attending Provider: Gerard Cruz Admit Provider: Jude Mendoza Primary Care Provider: Jorge Aggarwal Other Providers: Jude Mendoza ; Liss García Other Interventions: Discharge Summary Assessment (RN) Last Done: 03/22/20 13:59 Coding Level of Care Code D/C Day Management >30 mins Diagnoses Acute respiratory failure with hypoxia J96.01 Sepsis A41.9 Sepsis acute organ dysfunction status: unspecified Sepsis type: sepsis due to unspecified organism Diastolic CHF I50.30 Hypernatremia E87.0 CKD (chronic kidney disease), stage III N18.3 AMS (altered mental status) R41.82 Altered mental status type: unspecified Parkinson disease G20 Peripheral arterial disease I73.9 Hypothyroidism E03.9 Hypothyroidism type: unspecified A-fib I48.11 Atrial fibrillation type: longstanding persistent HTN (hypertension) I10 Elevated troponin R79.89
== END 2020-03-22 16:35 | disposition hospice, inpatient (51) | DRG 871 ==
LOC: ED 22:07 → SUATTDRO 23:53 → 1E 23:53 → 2S 03-16 09:20 → 2N 03-20 11:41